=== PATIENT | female | born 1990 | race Caucasian/White ===

== ENCOUNTER 2022-11-24 06:48 | Outpatient (OUT) | payer OTHER, SELFPAY ==
[2022-11-24 07:44] LABS: Basophils Percent Auto 0.4 % (0.2-2.0); Eosinophils Absolute Auto 0.1 10^3/uL (0.0-0.7); Eosinophils Percent Auto 1.9 % (0.9-7.0); Hematocrit 39.2 % (36.0-48.0); Hemoglobin 13.5 g/dL (12.0-16.0); Immature Granulocytes Abs Auto 0.01 10^3/uL (0.00-0.03); Immature Granulocytes Pct Auto 0.2 % (0.0-0.5); Lymphocytes Absolute Auto 1.5 10^3/uL (1.2-3.8); Lymphocytes Percent Auto 32.4 % (20.5-60.0); Mean Corpuscular HGB Conc 34.4 g/dL (29.9-35.2); Mean Corpuscular Hemoglobin 31.2 pg (26.7-34.0); Mean Corpuscular Volume 90.5 fL (81.0-99.0); Mean Platelet Volume 9.5 fL (9.5-13.5); Monocytes Absolute Auto 0.4 10^3/uL (0.3-0.8); Monocytes Percent Auto 7.6 % (1.7-12.0); Neutrophils Absolute Auto 2.7 10^3/uL (1.4-6.5); Neutrophils Percent Auto 57.5 % (43.0-75.0); Platelet Count 219 10^3/uL (150-450); Red Blood Count 4.33 10^6/uL (4.20-5.40); Red Cell Distribution Width 11.9 % (11.0-15.0); White Blood Count 4.8 10^3/uL (4.0-11.0)
[2022-11-24 09:00] LABS: Free T4 0.86 ng/dL (0.76-1.46)
[2022-11-24 09:09] LABS: HCG Quantitative <1 mIU/mL; Thyroid Stimulating Hormone 2.468 uIU/mL (0.358-3.740)
[2022-11-24 09:30] LABS: Estimated Average Glucose 80 mg/dL; Glycohemoglobin A1C 4.4 % (4.5-6.2)
[2022-11-25 08:12] LABS: DHEA-Sulfate 76.5 ug/dL (84.8-378.0); FSH 6.1 mIU/mL (.); Luteinizing Hormone(LH) 15.3 mIU/mL (.)
[2022-11-27 00:07] LABS: DHEA, Serum 318 ng/dL (31-701)
== END 2022-11-24 06:49 | disposition home or self-care (01) ==
LOC: LAB 06:48
PROVIDERS: PCP Family Medicine; Visit Provider Obstetrics & Gynecology
DX: E34.9 Endocrine disorder, unspecified (principal)
CPT/HCPCS: 36415; 82626; 82627; 83001; 83002; 83036; 84439; 84443; 84702; 85025

== ENCOUNTER 2022-12-09 08:00 | Outpatient (OUT) | payer OTHER, SELFPAY ==
--- NOTE | 2022-12-09 | US_ITS ---
The [address] [address] Patient Name: CASE DELACRUZ MRN: [id number] date: 1990 Sex: F Assigned Patient Location: Current Patient Location: US Accession/Order Number: [id number] Exam Date: 12/09/2022 08:04 Report Date: 12/09/2022 09:00 At the request of: SHANI FARR Procedure: US pelvis w/ transvaginal EXAM: Pelvic ultrasound. HISTORY: . PELVIC PAIN. IUD PLACEMENT . COMPARISON: None. TECHNIQUE: Transabdominal and transvaginal scanning was performed FINDINGS: Scanning of the pelvis demonstrates uterus to measure 9.4 x 4.7 x 5.2 cm. Endometrial complex measures 7 mm. Within the endometrial cavity linear hyperechoic structure is noted with shadowing consistent with an IUD which appears in good position. Neither ovary was identified. No fluid was noted within the cul-de-sac. Bowel loops were noted within the pelvis. US/US pelvis w/ transvaginal IMPRESSION: 1. Normal-appearing uterus and endometrial complex. IUD is noted and appears to be in good position. 2. Neither ovary was identified. 3. Incidentally noted were several bowel loops within the pelvis. Electronically authenticated by: HELADIO SEGURA Date: 12/09/2022 09:00
== END 2022-12-09 08:01 | disposition home or self-care (01) ==
LOC: US 08:00
PROVIDERS: PCP Family Medicine; Visit Provider Obstetrics & Gynecology
DX: R10.2 Pelvic and perineal pain (principal); Z97.5 Presence of (intrauterine) contraceptive device
CPT/HCPCS: 76830; 76856

== ENCOUNTER 2022-12-25 12:23 | Outpatient (OUT) | payer OTHER, SELFPAY ==
[2022-12-31 10:11] LABS: Serotonin, Serum 60 ng/mL (31-207)
== END 2022-12-25 12:24 | disposition home or self-care (01) ==
LOC: LAB 12:23
PROVIDERS: PCP Family Medicine; Visit Provider Obstetrics & Gynecology
DX: R10.2 Pelvic and perineal pain (principal)
CPT/HCPCS: 36415; 84260

== ENCOUNTER 2023-01-29 20:44 | Outpatient (REF) | payer OTHER, SELFPAY ==
[2023-02-03 15:08] LABS: Age Gdln ACOG Testing Note (.); HPV Aptima Negative (Negative); IGP, Aptima HPV, rfx 16/18,45 Note (.)
== END 2023-01-29 20:45 | disposition home or self-care (01) ==
LOC: LAB 20:44
PROVIDERS: PCP Family Medicine; Visit Provider Obstetrics & Gynecology
DX: Z12.4 Encounter for screening for malignant neoplasm of cervix (principal)
CPT/HCPCS: 87624; G0145

== ENCOUNTER 2024-01-06 19:04 | Emergency (ER) | payer OTHER, SELFPAY ==
[2024-01-06 19:39] VITALS: BP 147/100; PULSE 69; TEMP 36.9; O2SAT 99; BMI 49.4
[2024-01-06 21:20] VITALS: PULSE 80; O2SAT 99
--- NOTE | 2024-01-07 19:18 | ED_ITS ---
HPI - Animal Bite General Chief Complaint: Animal Bite Stated Complaint: Bite - Possible Bat Bite Time Seen by Provider: 01/06/24 19:48 Source: patient Mode of arrival: walk-in Limitations: no limitations History of Present Illness HPI narrative: patient presents after possible lucinda bite. The bat was flying around in her daughters bedroom. Patient not for sure if she was bitten. she is asymptomatic Related Data Home Medications ?Medication ?Instructions ?Recorded ?Confirmed bupropion HCl 300 mg 24 hr tablet, 300 mg PO DAILY 01/06/24 01/06/24 extended release esomeprazole magnesium 40 mg 40 mg PO DAILY 01/06/24 01/06/24 capsule,delayed release hyoscyamine sulfate 0.375 mg 0.375 mg PO BID 01/06/24 01/06/24 tablet,extended release,12 hr meloxicam 15 mg tablet 15 mg PO DAILY 01/06/24 01/06/24 sertraline 25 mg tablet 25 mg PO DAILY 01/06/24 01/06/24 topiramate 100 mg tablet 50 mg PO DAILY 01/06/24 01/06/24 Review of Systems ROS Status of ROS 10 or more systems reviewed and unremark able except as noted in history and below Exam Constitutional Vital Signs, click to edit/add: Last Vital Signs Temp 98.4 F 01/06/24 19:39 Pulse 80 01/06/24 21:20 Resp 16 01/06/24 21:20 BP 147/100 H 01/06/24 19:39 Pulse Ox 99 01/06/24 21:20 O2 Del Method Room Air 01/06/24 21:20 Common normals: no apparent distress, average body habitus, oriented x3, no limitations, healthy appearing, alert and well nourished [facility] Common normals: normocephalic and head/scalp atraumatic Eye Common normals: PERRL Respiratory Common normals: normal respiratory effort, no retractions and no use of accessory muscles Cardio Common normals: regular rate, regular rhythm, S1 normal heart sound and S2 normal heart sound Extremity Common normals: normal to inspection and full ROM Neuro Common normals: oriented x3, moves all extremities and no focal motor deficits Psych Appearance: grossly normal Course Vital Signs Vital signs: Vital Signs Temperature 98.4 F 01/06/24 19:39 Pulse Rate 69 01/06/24 19:39 Respiratory Rate 18 01/06/24 19:39 Blood Pressure 147/100 H 01/06/24 19:39 Pulse Oximetry 99 01/06/24 19:39 Oxygen Delivery Method Room Air 01/06/24 19:39 Temperature 98.4 F 01/06/24 19:39 Pulse Rate 80 01/06/24 21:20 Respiratory Rate 16 01/06/24 21:20 Blood Pressure 147/100 H 01/06/24 19:39 Pulse Oximetry 99 01/06/24 21:20 Oxygen Delivery Method Room Air 01/06/24 21:20 MDM - Animal Bite MDM Narrative Medical decision making narrative: patient presents after possible exposure to a bat that was found in her home. She is here for rabies vaccination she also brought her children in for vaccination as well we had enough vaccination for her 3 children but not enough for her. She was discharged and will follow up with health department tomorrow Discharge Plan Discharge Stand Alone Forms: Work/School Release, Portal Instructions Chief Complaint: Animal Bite Clinical Impression: Rabies contact Patient Disposition: Home, Self-Care Condition: Good Mode of Transportation: Private Vehicle Prescriptions / Home Meds: No Action bupropion HCl 300 mg tablet extended release 24 hr 300 mg PO DAILY esomeprazole magnesium 40 mg capsule,delayed release(DR/EC) 40 mg PO DAILY hyoscyamine sulfate 0.375 mg tablet extended release 12 hr 0.375 mg PO BID meloxicam 15 mg tablet 15 mg PO DAILY sertraline 25 mg tablet 25 mg PO DAILY topiramate 100 mg tablet 50 mg PO DAILY Print Language: Latvian Instructions: Animal Bite (ED) Additional Instructions: patient advised to follow up with health department Referrals: VARGAS MALHOTRA [Primary Care Provider] - 1 week Discharge Date/Time: 01/06/24 21:20
== END 2024-01-06 21:20 | disposition home or self-care (01) ==
PROVIDERS: Emergency Provider Internal Medicine; PCP Family Medicine
DX: Z20.3 Contact with and (suspected) exposure to rabies (principal)
CPT/HCPCS: 99284

== ENCOUNTER 2024-01-09 13:22 | Outpatient (RCR) | payer OTHER, SELFPAY ==
[2024-01-09] MEDS: RABIES VACCINE/PF 1 ML VIAL IM (13:28)
[2024-01-09] MEDS: RABIES IMMUNE GLOBULIN/PF 300 UNIT/2 ML VIAL 2400 UNIT IM (13:35)
[2024-01-12 17:53] VITALS: BP 132/93; PULSE 80; TEMP 36.4; O2SAT 99
[2024-01-12] MEDS: RABIES VACCINE/PF 1 ML VIAL IM (17:59)
[2024-01-16 09:20] VITALS: BP 136/86; PULSE 70; TEMP 36.5; O2SAT 97
[2024-01-16] MEDS: RABIES VACCINE/PF 1 ML VIAL IM (09:54)
== END 2024-01-16 23:59 | disposition home or self-care (01) ==
LOC: INF 13:22
PROVIDERS: PCP Family Medicine; Visit Provider Physician Assistant
DX: Z20.3 Contact with and (suspected) exposure to rabies (principal); Z23 Encounter for immunization
CPT/HCPCS: 90377; 90471; 90472; 90675

== ENCOUNTER 2024-01-23 09:32 | Outpatient (RCR) | payer OTHER, SELFPAY ==
[2024-01-23] MEDS: RABIES VACCINE/PF 1 ML VIAL IM (09:43)
[2024-01-23 09:54] VITALS: BP 121/84; PULSE 79; TEMP 36.6; O2SAT 97
== END 2024-02-15 23:59 | disposition home or self-care (01) ==
LOC: INF 09:32
PROVIDERS: PCP Family Medicine; Visit Provider Physician Assistant
DX: Z20.3 Contact with and (suspected) exposure to rabies (principal); Z23 Encounter for immunization
CPT/HCPCS: 90471; 90675

== ENCOUNTER 2025-01-14 11:43 | Emergency (ER) | payer OTHER, SELFPAY ==
[2025-01-14 11:47] VITALS: BP 121/81; PULSE 70; TEMP 36.9; O2SAT 99; BMI 52.1
--- NOTE | 2025-01-14 12:18 | XR_ITS ---
[place] [id number] Patient Name: CASE DELACRUZ MRN: [id number] date: 1990 Sex: F Assigned Patient Location: ER Current Patient Location: ED.MAIN Accession/Order Number: [id number] Exam Date: 01/14/2025 12:58 Report Date: 01/14/2025 13:09 At the request of: ANEESH TORRES MD Procedure: XR chest 1V XR chest 1V 01/14/2025 1:07 PM SIGNS AND SYMPTOMS: ^post op pain PROTOCOL: Frontal radiograph of the chest COMPARISON: None FINDINGS: The trachea is midline. The heart and mediastinal structures are within normal limits. The lung parenchyma is clear. The bony thorax is intact. XR/XR chest 1V IMPRESSION: No acute cardiopulmonary pathology. Impression dictated by: Juanjo Castro M.D. 01/14/2025 1:09 PM Dictation Location: [place] [id number] Electronically authenticated by: [id number] Y Date: 01/14/2025 13:09
[2025-01-14] MEDS: ONDANSETRON 4 MG RAPDIS TABLET SL (12:38)
--- NOTE | 2025-01-14 12:41 | ED.GENADUL1 ---
HPI HPI - General Adult General Chief complaint: Allergic Reaction Stated complaint: Allergic Reaction Time Seen by Provider: 01/14/25 12:03 Source: patient Mode of arrival: walk-in Limitations: no limitations History of Present Illness HPI narrative: The patient is 34-year-old female who had a procedure done yesterday in [facility], the patient apparently had the IUD removed under anesthesia The patient did show me the medical records and apparently she was intubated, and today the patient woke up with some neck and back pain in addition to left calf pain and some nausea No abdominal pain no other concerns and the patient have some posterior rib pain as well on the right side Related Data Home Medications ?Medication ?Instructions ?Recorded ?Confirmed bupropion HCl 300 mg 24 hr tablet, 300 mg PO DAILY 01/06/24 01/14/25 extended release esomeprazole magnesium 40 mg 40 mg PO DAILY 01/06/24 01/06/24 capsule,delayed release sertraline 25 mg tablet 25 mg PO DAILY 01/06/24 01/14/25 topiramate 100 mg tablet 50 mg PO DAILY 01/06/24 01/14/25 minoxidil 2.5 mg tablet 2.5 mg PO DAILY 01/14/25 01/14/25 Previous Rx's ?Medication ?Instructions ?Recorded ondansetron 4 mg disintegrating 4 mg PO Q8H PRN nausea and 01/14/25 tablet vomiting 48 hours #6 tabs Allergies Allergy/AdvReac Type Severity Reaction Status Date / Time No Known Drug Allergies Allergy Verified 01/14/25 11:53 Opioid HPI Opioid Management Most Recent Opioid Data: Last Pain Scale 6 Today, 12:53 Last ED Pain Assessment Today, 12:53 Review of Systems ROS Status of ROS 10 or more systems reviewed and unremarkable except as noted in history and below PFSH PFSH Social History Little interest or pleasure in doing things: not at all Feeling down, depressed, or hopeless: not at all Exam Narrative Exam Narrative: Nurses notes and vital signs reviewed and patient is not hypoxic. General: Well-appearing and in no apparent distress. Skin: Warm, dry, no pallor noted. No rash. Head: Normocephalic, atraumatic. Neck: Supple, non-tender. Eye: Pupils are equal, round and EOMI. No scleral icterus. Ears, Nose, Mouth, and Throat: TM are clear, no nasal mucosal hypertrophy. Oral mucosa is moist, no posterior oropharynx erythema, uvula is mid-line Cardiovascular: Regular Rate and Rhythm without murmur, gallop or rub. Respiratory: No accessory muscle use or respiratory distress. Lungs are clear to auscultation, no wheezing, rales or rhonchi Chest Wall: no tenderness Back: No midline thoracic or lumbar vertebral tenderness. No CVA tenderness Musculoskeletal: normal ROM, no calf or popliteal tenderness, no lower extremity edema/swelling GI: Abdomen is soft, non-distended. Normal bowel sounds. No masses appreciated. No tenderness to palpation. No rebound, guarding, or rigidity noted. Neurological: A&O x4. No cranial nerve dysfunction observed. No truncal ataxia. Moves all extremities. Sensation intact. Psychiatric: Cooperative and interactive. Normal mood and affect. Constitutional Vital Signs, click to edit/add: Last Vital Signs Temp 98.4 F 01/14/25 11:47 Pulse 70 01/14/25 11:47 Resp 20 01/14/25 11:47 BP 121/81 01/14/25 11:47 Pulse Ox 99 01/14/25 11:47 Course Vital Signs Vital signs: Vital Signs Temperature 98.4 F 01/14/25 11:47 Pulse Rate 70 01/14/25 11:47 Respiratory Rate 20 01/14/25 11:47 Blood Pressure 121/81 01/14/25 11:47 Pulse Oximetry 99 01/14/25 11:47 Temperature 98.4 F 01/14/25 11:47 Pulse Rate 70 01/14/25 11:47 Respiratory Rate 20 01/14/25 11:47 Blood Pressure 121/81 01/14/25 11:47 Pulse Oximetry 99 01/14/25 11:47 Medical Decision Making [facility] Narrative Medical decision making narrative: The patient procedure done almost 24 hours barely ago In the intubation could be the reason for the patient sore throat and neck pain, muscular pain could be secondary to the procedure to and the fact that the patient was in a lithotomy position to remove the IUD could explain why the calf pain in the left leg But right now the patient other than the muscular pain she does not have anything significant except for the nausea The patient have no abdominal pain no discharge no bleeding Chest x-ray showed no acute pathology and CBC and chemistry within normal with a negative test The patient symptoms could be due to postop pain in addition to anesthesia effect the patient was provided Zofran and discharged home with supportive care for the next 24 to 48 hours The patient is to follow up with primary care physician in next 2-3 days or to return to the emergency department should any of the signs or symptoms worsen or new symptoms develop. The patient agrees with the following Diagnosis and Treatment plan and the patient will be discharged home. Lab Data Labs: Lab Results 01/14/25 Range/Units 12:40 WBC 8.0 (4.0-11.0) 10^3/uL RBC 4.27 (4.20-5.40) 10^6/uL Hgb 12.9 (12.0-16.0) g/dL Hct 37.4 (36.0-48.0) % MCV 87.6 (81.0-99.0) fL MCH 30.2 (26.7-34.0) pg MCHC 34.5 (29.9-35.2) g/dL RDW 11.8 (11.0-15.0) % Plt Count 238 (150-450) 10^3/uL MPV 9.6 (9.5-13.5) fL Neut % (Auto) 54.4 (43.0-75.0) % Lymph % (Auto) 36.8 (20.5-60.0) % Robertson % (Auto) 6.9 (1.7-12.0) % Eos % (Auto) 1.0 (0.9-7.0) % Baso % (Auto) 0.5 (0.2-2.0) % Neut # (Auto) 4.4 (1.4-6.5) 10^3/uL Lymph # (Auto) 2.9 (1.2-3.8) 10^3/uL Robertson # (Auto) 0.6 (0.3-0.8) 10^3/uL Eos # (Auto) 0.1 (0.0-0.7) 10^3/uL Baso # (Auto) 0.0 (0.0-0.1) 10^3/uL Abs Immat Gran (auto) 0.03 (0.00-0.03) 10^3/uL Imm/Tot Granulo (auto) 0.4 (0.0-0.5) % Sodium 139 (136-145) mmol/L Potassium 3.7 (3.5-5.1) mmol/L Chloride 108 H (98-107) mmol/L Carbon Dioxide 21.3 (21.0-32.0) mmol/L Anion Gap 13.4 BUN 14.0 (7.0-18.0) mg/dL Creatinine 0.88 (0.55-1.02) mg/dL Est GFR ( Amer) >60 (>=60 mL/min/1.73m^2) Est GFR (Non-Af Amer) >60 (>=60 mL/min/1.73m^2) BUN/Creatinine Ratio 15.9 Glucose 97 (74-106) mg/dL Calcium 8.8 (8.5-10.1) mg/dL Total Bilirubin 0.3 (0.2-1.0) mg/dL AST 28 (15-37) U/L ALT 26 (14-59) U/L Alkaline Phosphatase 97 (46-116) U/L Total Protein 7.1 (6.4-8.2) g/dL Albumin 3.6 (3.4-5.0) g/dL Globulin 3.5 g/dL Albumin/Globulin Ratio 1.0 Discharge Plan Discharge Chief Complaint: Allergic Reaction Clinical Impression: Post-op pain Patient Disposition: Home, Self-Care Time of Disposition Decision: 13:15 Condition: Good Prescriptions / Home Meds: New ondansetron 4 mg tablet,disintegrating 4 mg PO Q8H PRN (Reason: nausea and vomiting) 2 Days Qty: 6 0RF No Action bupropion HCl 300 mg tablet extended release 24 hr 300 mg PO DAILY esomeprazole magnesium 40 mg capsule,delayed release(DR/EC) 40 mg PO DAILY sertraline 25 mg tablet 25 mg PO DAILY topiramate 100 mg tablet 50 mg PO DAILY minoxidil 2.5 mg tablet 2.5 mg PO DAILY Print Language: Greenlandic Instructions: General Anesthesia (DC) Referrals: VARGAS MALHOTRA DO [Primary Care Provider, [facility]] - 1 week
[2025-01-14 12:51] LABS: Hematocrit 37.4 % (36.0-48.0); Hemoglobin 12.9 g/dL (12.0-16.0); Immature Granulocytes Abs Auto 0.03 10^3/uL (0.00-0.03); Immature Granulocytes Pct Auto 0.4 % (0.0-0.5); Lymphocytes Absolute Auto 2.9 10^3/uL (1.2-3.8); Mean Corpuscular HGB Conc 34.5 g/dL (29.9-35.2); Mean Corpuscular Hemoglobin 30.2 pg (26.7-34.0); Mean Corpuscular Volume 87.6 fL (81.0-99.0); Platelet Count 238 10^3/uL (150-450); Red Blood Count 4.27 10^6/uL (4.20-5.40); White Blood Count 8.0 10^3/uL (4.0-11.0)
--- OUTSIDE RECORDS SUMMARY | 2025-01-14 13:00 | XMS_ITS | CCD ---
Author Organization [facility] Care Team Providers Care Roll Clamp Operator Name Role Phone Vargas MALHOTRA Primary Care Physician YORDAN, DR MCLEOD Attending Unavailable YORDAN, DR MCLEOD Admitting Unavailable GONZALEZ, DR VARGAS Arreola Primary Care Unavailable YORDAN, DR MCLEOD Attending Unavailable YORDAN, DR MCLEOD Consulting Unavailable YORDAN, DR MCLEOD Admitting Unavailable GONZALEZ, DR VARGAS Arreola Primary Care Unavailable GONZALEZ, DR VARGAS Arreola Primary Care Unavailable GONZALEZ, DR VARGAS Arreola Admitting Unavailable GONZALEZ, DR VARGAS Arreola Attending Unavailable GONZALEZ, DR VARGAS Arreola Consulting Unavailable GONZALEZ, DR VARGAS Arreola Primary Care Unavailable KATTHIRA Admitting Unavailable KATTRYANOE Attending Unavailable Unavailable Primary Care Provider UnavailMAGED Bhandari Attending Unavailable Vargas Malhotra DO Primary Care Provider Vargas Malhotra DO Primary Care Provider DO Vargas Malhotra Primary Care Provider DO Elie Lerner Attending Provider [phone] NONE, XXXX Primary Care Physician Unavailab Vargas Baxter DO Primary Care Provider VARGAS MALHOTRA Primary Care Unavailable JOSE BERNARD Attending Unavailable VARGAS MALHOTRA Primary Care Unavailable HELADIO CRAIN JR Referring Unavailable DO Vargas Malhotra Primary Care Provider CHARLEEN Lee-JORY-Merry Casey Attending Provider Neyda Lee Admitting Unavailable Neyda Lee Attending Unavailable Vargas Malhotra Primary Care Unavailable Elie Lerner Admitting Unavailab Elie Tavera Attending Unavailab arely Malhotra, Vargas S Primary Care Unavailable Neyda Lee Attending Unavailable Gonzalez, Vargas S Primary Care Unavailable Neyda Lee Admitting Unavailable Elie Lerner DO Unavailable Gonzalez DO, Vargas S Primary Care Provider Gonzalez DO, Vargas S Primary Care Provider MillsOren hernandez DO P Unavailable Gonzalez DO, Vargas S Primary Care Provider GONZALEZ, Vargas S Primary Care Physician Marya Wright Attending Unavailable GONZALEZ, VARGAS S Referring Unavailable GONZALEZ, VARGAS S Primary Care Unavailable WOODY GARCIA Referring Unavailable GONZALEZ, VARGAS S Primary Care Unavailable GONZALEZ, VARGAS S Referring Unavailable GONZALEZ, VARGAS S Primary Care Unavailable RYAN, CHEIKH Referring Unavailable GONZALEZ, VARGAS S Primary Care Unavailable GONZALEZ, VARGAS S Referring Unavailable GONZALEZ, VARGAS S Primary Care Unavailable GONZALEZ, VARGAS S Primary Care Unavailable GONZALEZ, VARGAS S Referring Unavailable GONZALEZ, VARGAS S Primary Care Unavailable RYAN, CHEIKH Referring Unavailable GONZALEZ, VARGAS S Primary Care Unavailable GONZALEZ, VARGAS S Referring Unavailable GONZALEZ, VARGAS S Primary Care Unavailable GONZALEZ, VARGAS S Referring Unavailable GONZALEZ, VARGAS S Primary Care Unavailable GONZALEZ, VARGAS S Referring Unavailable GONZALEZ, VARGAS S Referring Unavailable GONZALEZ, VARGAS S Primary Care Unavailable GONZALEZ, VARGAS S Primary Care Unavailable GONZALEZ, VARGAS S Referring Unavailable GONZALEZ, VARGAS S Primary Care Unavailable SCHMANUEL, CHEIKH Referring Unavailable GONZALEZ, VARGAS S Primary Care Unavailable SCHUERGER, CHEIKH Referring Unavailable GONZALEZ, VARGAS S Primary Care Unavailable SCHUERGER, CHEIKH Referring Unavailable GONZALEZ, VARGAS S Primary Care Unavailable SCHSYDNEYGER, CHEIKH Referring Unavailable GONZALEZ, VARGAS S Primary Care Unavailable SCHSYDNEYGER, CHEIKH Referring Unavailable GONZALEZ, VARGAS S Primary Care Unavailable SCHUERGER, CHEIKH Referring Unavailable GONZALEZ, VARGAS S Primary Care Unavailable SCHUERGER, CHEIKH Referring Unavailable GONZALEZ, VARGAS S Primary Care Unavailable SCHUERGER, CHEIKH Referring Unavailable GONZALEZ, VARGAS S Primary Care Unavailable GONZALEZ, VARGAS S Referring Unavailable GONZALEZ, VARGAS S Primary Care Unavailable GONZALEZ, VARGAS S Referring Unavailable GONZALEZ, VARGAS S Primary Care Unavailable GONZALEZ, VARGAS S Referring Unavailable GONZALEZ, VARGAS S Primary Care Unavailable CHEIKH HADDAD Referring Unavailable GONZALEZ, VARGAS S Primary Care Unavailable CHEIKH HADDAD Referring Unavailable GONZALEZ, VARGAS S Primary Care Unavailable SCHSYDNEYGER, CHEIKH Referring Unavailable GONZALEZ, VARGAS S Primary Care Unavailable GONZALEZ, VARGAS S Referring Unavailable GONZALEZ, VARGAS S Primary Care Unavailable GONZALEZ, VARGAS S Referring Unavailable GONZALEZ, VARGAS S Primary Care Unavailable GONZALEZ, VARGAS S Referring Unavailable GONZALEZ, VARGAS S Primary Care Unavailable SCHMANUEL, CHEIKH Referring Unavailable GONZALEZ, VARGAS S Primary Care Unavailable WOODY GARCIA Attending Unavailable WOODY GARCIA Admitting Unavailable GONZALEZ, VARGSA S Primary Care Unavailable GONZALEZ, VARGAS S Referring Unavailable GONZALEZ, VARGAS S Primary Care Unavailable GONZALEZ, VARGAS S Primary Care Unavailable RYAN, CHEIKH Referring Unavailable LLUVIA GRAY Attending Unavailable GONZALEZ, VARGAS S Primary Care Unavailable VALDEZ REYES Attending Unavailable GONZALEZ, VARGAS S Primary Care Unavailable SELF Referring Unavailable MARCIAL QUEEN Referring Unavailable GONZALEZ, VARGAS S Primary Care Unavailable OREN MILLS Referring Unavailable GONZALEZ, VARGAS S Primary Care Unavailable CYNDI FREEDMAN Referring Unavailable GONZALEZ, VARGAS S Primary Care Unavailable CYNDI FREEDMAN Referring Unavailable PATTI RUTHERFORD Attending Unavailable GONZALEZ, VARGAS S Primary Care Unavailable GAIL ENGEL Attending Unavailable PATTI RUTHERFORD Referring Unavailable GONZALEZ, VARGAS S Primary Care Unavailable MICHAEL HITCHCOCK Attending Unavailable GONZALEZ, VARGAS S Primary Care Unavailable SHELL RO Referring Unavailable GONZALEZ, VARGAS S Primary Care Unavailable TIERRA ROJAS Attending Unavailable GONZALEZ, VARGAS S Primary Care Unavailable OREN MILLS Referring Unavailable MICHAEL HITCHCOCK Attending Unavailable GONZALEZ, VARGAS S Primary Care Unavailable SHELL RO Referring Unavailable GONZALEZ, VARGAS S Primary Care Unavailable CYNDI FREEDMAN Attending Unavailable GONZALEZ, VARGAS S Primary Care Unavailable SELF Referring Unavailable MARCIAL QUEEN Attending Unavailable GONZALEZ, VARGAS S Primary Care Unavailable OREN MILLS Attending Unavailable GONZALEZ, VARGAS S Primary Care Unavailable SHELL RO Attending Unavailable GONZALEZ, VARGAS S Primary Care Unavailable Allergies Allergy Classification Reported Allergen(s) Allergy Type Date of Onset Reaction(s) Facility (1 source) Unable to Assess Drug allergy (disorder) 3 [facility] Repository (1 source) No Known Medication Allergies; Translations: [No Known Medication Allergies] Propensity to adverse reactions (disorder) [facility] Repository Medications Current Medications Medication Drug Class(es) Dates Sig (Normalized) Sig (Original) 0.5 ML semaglutide 0.5 MG/ML Auto-Injector (2 sources) Start: 03-24-2022 inject 0.5 mg by subcutaneous injection every week semaglutide 0.25 mg/0.5 mL (0.25 mg dose) subcutaneous solution See Instructions, 0.5mg q weekly, # 3 EA, Refills(s) 3, Pharmacy: [facility] #[id number], 157, cm, 01/13/22 14:52:00 EDT, Height/Length Dosing, 110.7, kg, 01/13/22 14:52:00 EDT, Weight Dosing Start Date: 03/24/22 Status: Ordered Start: 02-14-2021 inject 0.5 mg by sub cutaneous injection every week semaglutide 0.25 mg/0.5 mL (0.25 mg dose) subcutaneous solution See Instructions, 0.5mg q weekly, # 3 EA, Refills(s) 3, Pharmacy: [facility]/pharmacy #[id number], 157, cm, 01/16/21 15:16:00 EDT, Height/Length Dosing, 106.6, kg, 01/16/21 15:16:00 EDT, Weight Dosing Start Date: 02/14/21 Status: Ordered acetylcholine 10% solution - [facility] (20 sources) Start: 07-06-2023 acetylcholine 10% solution - [facility] albuterol 0.833 mg/ml / ipratropium bromide 0.167 mg/ml inhalation solution (1 source) Anticholinerg ic, beta2-Adrener gic Agonist Start: 03-08-2024 End: 03-09-2024 take 1 dose by inhalation once as needed 1 Dose, Inhalation, ONCE PRN, 1 dose, Starting on Thu03/08/24 at 0844, Until Thu03/09/24 at 0844, Shortness of Breath, Initiate RT Bronchodilator Protocol: No, PACU only ascorbic acid/vitamin E/biotin (HAIR, SKIN, NAILS WITH BIOTIN ORAL) (20 sources) ascorbic acid/vitamin E/biotin (HAIR, SKIN, NAILS WITH BIOTIN ORAL) Take by mouth. Suspended ascorbic acid/vi tamin E/biotin (HAIR, SKIN, NAILS WITH BIOTIN ORAL) Take by mouth. Active ascorbic acid/vi tamin E/biotin (HAIR, SKIN, NAILS WITH BIOTIN ORAL) Take by mouth. 0 Active Comment on above: Take by mouth. benoxinate hydrochloride 4 mg/ml / fluorescein sodium 3 mg/ml ophthalmic solution (1 source) Diagnostic Dye Start: 2023 End: 2023 fluorescein-benoxinat e 0.3-0.4 % 1 Drop (FLURESS) benzalkonium chloride 1.3 mg/ml medicated pad (12 sources) Start: 2024 Misc. Devices KIT Indications: Hemochromatosis, unspecified hemochromatosis type Therapeutic Phlebotomy. Remove 500mL weekly. Do not draw if hemoglobin is lower than 13.0. g/dL. Patient has standing orders for weekly H&H, Iron and TIBC. No hydration required following the draw. 1 kit 10/07/2024 Active brompheniramine maleate 0.4 mg/ml / dextromethorphan hydrobromide 2 mg/ml / pseudoephedrine hydrochloride 6 mg/ml oral solution (1 source) alpha-Adrenergic Agonist, Uncompetitive O-watjab-L-aspartat e Receptor Antagonist, Sigma-1 Agonist Start: 2024 take 5 mL by mouth four times daily for cough and congestion Bromfed DM oral syrup 5 mL, Oral, QID for cough and congestion, 200 mL, Refill(s) 0, [facility]/pharmacy #[id number], 157, cm, 09/30/24 15:05:00 EDT, Height/Length Dosing, 126, kg, 09/30/24 15:05:00 EDT, Weight Dosing Start Date: 09/30/24 Status: Ordered Quantity: 200.0 Unit: mL Repeat number: 1 24 hr buPROPion hydrochloride 300 mg extended release oral tablet (20 sources) Aminoketone Start: 2021 take 1 tablet by mouth once daily buPROPion 300 mg XL /24 hrs TAKE 1 TABLET BY MOUTH EVERY DAY Start Date: 01/13/22 Status: Ordered Start: 01-13-2022 End: 2022 take 1 tablet by mouth once daily buPROPion XL (WELLBUTRIN XL) 300 mg 24 hr tablet Take 300 mg by mouth once daily. 06/03/2022 Active Comment on above: Take 300 mg by mouth once daily. chlorzoxazone 500 mg oral tablet (3 sources) Muscle Relaxant Start: 01-12-20 chlorzoxazone (PARAFON FORTE DSC) 500 mg tablet Indications: Intractable chronic migraine without aura and without status migrainosus Take 1 tablet by mouth four times daily. Take 1 tablet (500 mg) four times a day until headache free for 24 hours or take for 5 days. May cause drowsiness. Please do not drive or operate machinery while taking this medication 20 tablet 01/11/2025 Active cholecalciferol 0.05 mg oral capsule (20 sources) Vitamin D Start: 02-05-20 take 1 capsule by mouth once daily Cholecalciferol (Vitamin D3) (Vitamin D3) 50 mcg (2,000 unit) Capsule Active 50 MCG PO Daily February 04, 2023 12:00am Cholecalciferol (VITAMIN D3 PO) Take by mouth Active Cholecalciferol (VITAMIN D3 PO) Take by mouth 0 Active cholecalciferol, vitamin D3, (VITAMIN D3 ORAL) (20 sources) cholecalciferol, vitamin D3, (VITAMIN D3 ORAL) Take by mouth. Suspended cholecalciferol, vitamin D3, (VITAMIN D3 ORAL) Take by mouth. Active cholecalciferol, vitamin D3, (VITAMIN D3 ORAL) Take by mouth. 0 Active Comment on above: Take by mouth. cyclobenzaprine hydrochloride 10 mg oral tablet (2 sources) Muscle Relaxant Start: 022 take 1 tablet by mouth once daily at bedtime cyclobenzaprine 10 mg Tab TAKE 1 TABLET BY MOUTH EVERYDAY AT BEDTIME Start Date: 01/13/22 Status: Ordered esomeprazole 40 mg delayed release oral capsule (20 sources) Proton Pump Inhibitor Start: 023 End: 025 take 1 capsule by mouth twice daily before mealtime esomeprazole (NEXIUM) 40 mg capsule Indications: Gastroesophageal reflux disease without esophagitis TAKE 1 CAPSULE BY MOUTH TWO TIMES A DAY BEFORE MEALS 180 capsule 1 06/15/2024 Active Start: 01-09-2023 End: 11-13-2023 esomeprazole (NEXIUM) 40 MG delayed release capsule 01/09/2023 Active Start: 12-23-2022 Nexium Refills (s) 0 Start Date: 12/23/22 Status: Ordered Repeat number: 1 Start: 12-23-2022 Nexium Refills (s) 0 Start Date: 12/23/22 Status: Ordered End: 12-30-2022 take 20 mg by mouth once daily esomeprazole magnesium (NEXIUM ORAL) Take 20 mg by mouth once daily. 0 12/30/2022 Discontinued (Course of therapy completed) esomeprazole mag nesium (NEXIUM ORAL) Take by mouth. 0 Active Comment on above: Take by mouth. Take 20 mg by mouth once daily. Take 1 capsule by [facility] once daily. take 1 capsule by [facility] every day fluticasone propionate 0.05 mg/actuat metered dose nasal spray (1 source) Corticosteroid Start: 09-30-2024 Flonase 0.05 mg/inh [place] 1 spray(s), Nasal, BID, 16 gram, Refill(s) 0, each nostril, [facility]/pharmacy #[id number], 157, cm, 09/30/24 15:05:00 EDT, Height/Length Dosing, 126, kg, 09/30/24 15:05:00 EDT, Weight Dosing Start Date: 09/30/24 Status: Ordered Quantity: 16.0 Unit: g Repeat number: 1 Glucose (3 sources) Start: 03-08-2024 IntraVENous, at 100 mL/hr, CONTINUOUS PRN, if blood glucose remains LESS THAN 70 mg/dL after 2 dextrose 10% intravenous boluses or administration of glucagon, Starting on Thu03/08/24 at 0844, If blood glucose fails to stabilize after 2 dextrose 10% intravenous boluses or glucagon administration, start dextrose 10% infusion at 100 mL/hour and repeat blood glucose at 30 and 60 minutes. If blood glucose is GREATER THAN 70 mg/dL after 60 minutes, discontinue dextrose 10% infusion., PACU only Start: 03-08-2024 dextrose bolus 10% 125 mL Start: 03-08-2024 16 g (4 tablet ), Oral, PRN, Starting on Thu03/08/24 at 0844, Until Discontinued, Low blood sugar, If blood glucose is LESS THAN 70 mg/dL and patient is alert and tolerating oral. Give 4 tablets (16g) Repeat blood glucose in 15 minutes. If blood glucose is LESS THAN 70 mg/dL, repeat treatment and recheck blood glucose in 15 minutes x 2. If blood glucose remains LESS THAN 70 mg/dL, notify provider., PACU only hydrOXYzine hydrochloride 25 mg oral tablet (5 sources) Antihistamine Start: 08-06-2021 take 1-2 tablets by mouth four times daily as needed for anxiety hydrOXYzine hydrochloride 25 mg Tab 1-2 tab(s), Oral, QID, PRN for anxiety, # 40 tab(s), Refills(s) 0, Pharmacy: [facility]/pharmacy #[id number], 157, cm, 04/25/21 14:43:00 EST, Height/Length Dosing, 110.9, kg, 04/25/21 14:43:00 EST, Weight Dosing Start Date: 08/06/21 Status: Ordered 12 hr hyoscyamine sulfate 0.375 mg extended release oral tablet (20 sources) Start: 10-20-2023 End: 12-19-2023 take 1 tablet by mouth twice daily hyoscyamine SR (LEVBID) 0.375 mg 12 hr tablet TAKE 1 TABLET BY MOUTH TWICE A DAY 180 tablet 1 11/12/2023 Active Start: 06-18-2023 End: 10-20-2023 take 1 tablet by mouth twice daily hyoscyamine (LEVSIN) 0.125 mg tablet TAKE 1 TABLET BY MOUTH TWICE A DAY 180 tablet 1 06/18/2023 10/20/2023 Discontinued Start: 05-22-2023 take 1 tablet by vanesa th twice daily hyoscyamine (ANASPAZ;LEVSIN) 125 MCG tablet Take 1 tablet by mouth 2 times daily 05/22/2023 Active Start: 05-05-2023 End: 07-04-2023 take 1 tablet by mouth twice daily hyoscyamine SR (LEVBID) 0.375 mg 12 hr tablet Take 1 tablet by mouth two times a day. 60 tablet 1 05/05/2023 07/04/2023 Active Comment on above: Take 1 tablet by vanesa th two times a day. TAKE 1 TABLET BY VANESA TH TWICE A DAY 24 hr isosorbide mononitrate 30 mg extended release oral tablet (10 sources) Nitrate Vasodilator Start: 12-23-2022 isosorbide mononitrate 30 mg ER Tab Refills(s) 0 Start Date: 12/23/22 Status: Ordered Start: 11-25-2022 End: 01-26-2023 take 1 tablet by mouth once daily isosorbide mononitrate ER (IMDUR) 30 mg 24 hr tablet Indications: SOB (shortness of breath) , Abnormal stress test TAKE 1 TABLET BY MOUTH EVERY DAY 90 tablet 3 12/17/2022 01/26/2023 Discontinued (Course of therapy completed) Comment on above: Take 1 tablet by vanesa th once daily. TAKE 1 TABLET BY VANESA TH EVERY DAY labetalol (NORMODYNE;TRANDATE) injection 10 mg (1 source) Start: 03-08-2024 labetalol (NORMODYNE;TRANDATE) injection 10 mg loratadine 10 mg oral capsule (17 sources) Start: 12-23-2022 take 1 capsule by mouth once daily loratadine 10 mg oral capsule 10 mg = 1 cap(s), Oral, Daily, # 10 cap(s), Refills(s) 0 Start Date: 12/23/22 Status: Ordered Quantity: 10.0 Unit: cap(s) Repeat number: 1 End: 07-10-2023 loratadine (CLARITIN) 10 mg tablet Take 10 mg by mouth. 0 07/10/2023 Discontinued (Course of therapy completed) Comment on above: Take 10 mg by mouth. Magnesium (20 sources) MAGNESIUM ORAL T margaret by mouth. Suspended End: 11-23-2024 Magnesium 400 MG TABS Take 2 00 mg by mouth daily 11/23/2024 Discontinued (LIST CLEANUP) MAGNESIUM ORAL T margaret by mouth. Active Magnesium 400 MG TABS Take 200 mg by mouth daily Active Magnesium 400 MG TABS Take 200 mg by mouth daily 0 Active MAGNESIUM ORAL T margaret by mouth. 0 Active Comment on above: Take by mouth. meloxicam 15 mg oral tablet (16 sources) Nonsteroidal Anti-inflammatory Drug Start: 01-25-2024 take 1 tablet by mouth once daily meloxicam (MOBIC) 15 MG tablet TAKE 1 TABLET BY MOUTH EVERY DAY 30 tablet 1 01/25/2024 Active Start: 11-12-2023 End: 12-27-2023 take 1 tablet by mouth once daily meloxicam (MOBIC) 15 MG tablet TAKE 1 TABLET BY MOUTH EVERY DAY 30 tablet 1 12/01/2023 Active 2 ml metoclopramide 5 mg/ml prefilled syringe (1 source) Dopamine-2 Receptor Antagonist Start: 03-08-2024 End: 03-09-2024 10 mg, IntraVENous, ONCE PRN, 1 dose, Starting on Thu03/08/24 at 0844, Until Thu03/09/24 at 0844, Nausea, Secondary antiemetic therapy., PACU only minoxidil 2.5 mg oral tablet (16 sources) Arteriolar Vasodilator Start: 11-09-2024 End: 11-09-2025 take 1 tablet by mouth once daily minoxidil (LONITEN) 2.5 MG tablet Indications: Hair loss Take 1 tablet by mouth daily 30 tablet 3 11/09/2024 11/09/2025 Active Misc. Devices MISC (12 sources) Start: 10-06-2024 Misc. Devices MISC Indications: Hemochromatosis, unspecified hemochromatosis type Therapeutic phlebotomy. Remove 500 mL once weekly. Do not draw if hemoglobin is lower than 13.0 g/dL. Patient has been provided with standing orders for weekly hemoglobin, hematocrit, iron and TIBC levels. No hydration required after draw. 1 each 10/06/2024 Active multivit with calcium,iron,min (WOMEN'S MULTIPLE VITAMINS ORAL) (20 sources) multivit with calcium,iron,min (WOMEN'S MULTIPLE VITAMINS ORAL) Take by mouth once daily. Suspended multivit with ca lcium,iron,min (WOMEN'S MULTIPLE VITAMINS ORAL) Take by mouth once daily. Active multivit with ca lcium,iron,min (WOMEN'S MULTIPLE VITAMINS ORAL) Take by mouth once daily. 0 Active Comment on above: Take by mouth once d aily. naloxone 0.4 mg in 10 mL sodium chloride syringe (1 source) Start: 03-08-20 IntraVENous, PRN, Opioid Reversal, Starting on Thu03/08/24 at 0844, PRN if respiratory rate is less than 6/min and patient is difficult to arouse then notify physician STAT. Mix 9 mL of sodium chloride 0.9% with 0.4 mg (1 mL) of naloxone (NARCAN) in 10 mL syringe. (Note: dilution is 0.04 mg/mL) Give 0.08 mg (2 mL of special dilution), slow IV push, repeat up to 0.4 mg (10 mL) or until patient is responsive to physical stimulation and respiratory rate is equal to or greater than 6 breaths/min. Continue to observe, if no response within 3 minutes of administration of 0.4 mg (10 mL) total, repeat dose (0.4 mg as administered previously). Concentration 0.04 mg/mL, PACU only naproxen 500 mg oral tablet (1 source) Nonsteroidal Anti-inflammatory Drug Start: 11-11-19 take 1 tablet by mouth twice daily Naprosyn 500 mg Tab 500 mg = 1 tab(s), Oral, BID, # 20 tab(s), Refills(s) 0, Pharmacy: [facility]/pharmacy #[id number], 157, cm, 11/10/22 17:08:00 EDT, Height/Length Dosing, 112, kg, 11/10/22 17:08:00 EDT, Weight Dosing Start Date: 11/10/22 Status: Ordered nitrofurantoin, macrocrystals 25 mg / nitrofurantoin, monohydrate 75 mg oral capsule (2 sources) Nitrofuran Antibacterial Start: 04-27-20 End: 05-04-20 take 1 capsule by mouth twice daily nitrofurantoin, macrocrystal-monohydr ate, (MACROBID) 100 MG capsule Take 1 capsule by mouth 2 times daily for 7 days 14 capsule 04/27/2024 05/04/2024 Active Start: 04-27-2024 End: 04-27-2024 take 1 dose by mouth once 100 mg, Oral, ONCE, 1 dose, On Thu04/27/24 at 1121, Antimicrobial Indications: Urinary Tract Infection ondansetron 4 mg oral tablet (18 sources) Serotonin-3 Receptor Antagonist Start: 04-22-2024 take 1 tablet by mouth three times daily as needed for nausea ondansetron (ZOFRAN) 4 MG tablet Take 1 tablet by mouth 3 times daily as needed for Nausea or Vomiting 30 tablet 2 04/22/2024 Active Start: 03-08-2024 End: 03-09-2024 4 mg, IntraVENous, ONCE PRN, 1 dose, Starting on Thu03/08/24 at 0844, Until Thu03/09/24 at 0844, Nausea, Initial antiemetic therapy., PACU only oxyCODONE hydrochloride 5 mg oral tablet (1 source) Opioid Agonist Start: 03-08-2024 End: 03-13-2024 take 1 tablet by mouth every six hours as needed for pain oxyCODONE (ROXICODONE) 5 MG immediate release tablet Indications: Acute medial meniscus tear of right knee, subsequent encounter Take 1 tablet by mouth every 6 hours as needed for Pain for up to 5 days. Intended supply: 5 days. Take lowest dose possible to manage pain Max Daily Amount: 20 mg 20 tablet 03/08/2024 03/13/2024 Active pantoprazole 40 mg extended release oral tablet (3 sources) Proton Pump Inhibitor Start: 12-23-2021 take 1 tablet by mouth once daily pantoprazole 40 mg Oral EC Tab 40 mg = 1 tab(s), Oral, Daily, # 90 tab(s), Refills(s) 1, Pharmacy: [facility]/pharmacy #[id number], 157, cm, 04/25/21 14:43:00 EST, Height/Length Dosing, 110.9, kg, 04/25/21 14:43:00 EST, Weight Dosing Start Date: 12/23/21 Status: Ordered Start: 12-23-2021 take 1 tablet by vanesa th once daily pantoprazole 40 mg Oral EC Tab 40 mg = 1 tab(s), Oral, Daily, # 90 tab(s), Refills(s) 1, Pharmacy: [facility]/pharmacy #[id number], 157, cm, 04/25/21 14:43:00 EST, Height/Length Dosing, 110.9, kg, 04/25/21 14:43:00 EST, Weight Dosing Start Date: 12/23/21 Status: Ordered 0.25 mg, 0.5 mg dose 1.5 ml semaglutide 1.34 mg/ml pen injector (1 source) Start: 03-25-2022 inject 0.5 mg by subcutaneous injection every week Ozempic 2 mg/1.5 mL (0.25 mg or 0.5 mg dose) subcutaneous solution 0.5 mg, SubCutaneous, qWeek, 4.5 mL, Refill(s) 3, [facility]/pharmacy #[id number], 157, cm, 01/13/22 14:52:00 EDT, Height/Length Dosing, 110.7, kg, 01/13/22 14:52:00 EDT, Weight Dosing Start Date: 03/25/22 Status: Ordered Semaglutide-Weight Management (WEGOVY) 0.5 MG/0.5ML SOAJ SC injection (17 sources) Start: 12-17-2023 Semaglutide-We ight Management (WEGOVY) 0.5 MG/0.5ML SOAJ SC injection Indications: BMI 50.0-59.9, adult , Metabolic syndrome , ANTHONY (obstructive sleep apnea) Inject 0.5 mg into the skin every 7 days 3 mL 12/17/2023 Active Start: 12-17-2023 Semaglutide-We ight Management (WEGOVY) 0.5 MG/0.5ML SOAJ SC injection Indications: BMI 50.0-59.9, adult (HCC) , Metabolic syndrome , ANTHONY (obstructive sleep apnea) Inject 0.5 mg into the skin every 7 days 3 mL 12/17/2023 Active Start: 12-17-2023 Semaglutide-We ight Management (WEGOVY) 0.5 MG/0.5ML SOAJ SC injection Indications: BMI 50.0-59.9, adult (HCC) , Metabolic syndrome , ANTHONY (obstructive sleep apnea) Inject 0.5 mg into the skin every 7 days 3 mL 0 12/17/2023 Active sertraline 25 mg oral tablet (20 sources) Serotonin Reuptake Inhibitor Start: 08-28-2022 sertraline (ZOLOFT) 25 mg tablet Take 25 mg by mouth. 08/28/2022 Active End: 07-29-2023 sertraline 150 mg capsule sertraline 150 m g capsule Comment on above: Take 25 mg by mouth. 1000 ml sodium chloride 9 mg/ml injection (3 sources) Start: take 1 mL intravenously every hour as needed IntraVENous, at 100 mL/hr, PRN, If patient receiving piggyback infusions without ordered maintenance IV fluids or with frequent/long duration piggyback infusions, Starting on Thu03/08/24 at 0844, Administer at the same rate as the piggyback being infused., PACU only Start: 03-08-2024 5-40 mL, Intra VENous, EVERY 12 HOURS SCHEDULED (2 times per day), First dose on Thu03/08/24 at 0900, Until Discontinued, For Line Patency: Peripheral IV = 5 mL; Midline or Central Line = 10 mL/lumen. If following IV push medication, administer flush at same rate as the IV push. Flush volume is determined by type of infusion therapy being given. For non-viscous solutions use: Peripheral IV = 5 mL Midline or Central Line = 10 mL/lumen For viscous solutions (i.e. blood components, parenteral nutrition, contrast media, or after obtaining blood sample) use: Peripheral IV = 10 mL Midline or Central Line = 20 mL/lumen, PACU only Start: 03-08-2024 5-40 mL, Intra VENous, PRN, Starting on Thu03/08/24 at 0844, Until Discontinued, Line Care, After every IV line use, For Line Patency: Peripheral IV = 5 mL; Midline or Central Line = 10 mL/lumen. If following IV push medication, administer flush at same rate as the IV push. Flush volume is determined by type of infusion therapy being given. For non-viscous solutions use: Peripheral IV = 5 mL Midline or Central Line = 10 mL/lumen For viscous solutions (i.e. blood components, parenteral nutrition, contrast media, or after obtaining blood sample) use: Peripheral IV = 10 mL Midline or Central Line = 20 mL/lumen, PACU only Tirzepatide (MOUNJARO) 2.5 MG/0.5ML SOAJ pen (1 source) Start: 12-21-2024 Tirzepatide (MOUNJARO) 2.5 MG/0.5ML SOAJ pen Indications: Metabolic syndrome , Impaired fasting glucose Inject 2.5 mg into the skin every 7 days 2 mL 12/21/2024 Active tirzepatide, weight loss (ZEPBOUND) 5 mg/0.5 mL pen injector (2 sources) Start: 08-31-2023 tirzepatide, weight loss (ZEPBOUND) 5 mg/0.5 mL pen injector Indications: Class 3 severe obesity due to excess calories with serious comorbidity and body mass index (BMI) of 50.0 to 59.9 in adult (HCC) , ANTHONY (obstructive sleep apnea) Inject 5 mg subcutaneously one time a week. Patient should start on August 31, 2023. 2 mL 2 08/31/2023 Active Comment on above: Inject 5 mg subcutan eously one time a week. Patient should start on August 31, 2023. topiramate 100 mg oral tablet (20 sources) Start: 03-31-2024 End: 03-31-2025 take 1.5 tablets by mouth once daily at bedtime topiramate (TOPAMAX) 50 mg tablet Take 1.5 tablets by mouth daily at bedtime. 45 tablet 11 03/31/2024 06/02/2024 Discontinued Start: 08-13-2023 End: 08-18-2025 take 1 tablet by mouth once daily at bedtime topiramate (TOPAMAX) 100 mg tablet Take 1 tablet by mouth daily at bedtime. 30 tablet 11 08/18/2024 08/18/2025 Active Start: 07-29-2023 End: 08-07-2023 take 50-59.9 tablets by mouth twice daily topiramate (TOPAMAX) 25 mg tablet Indications: Class 3 severe obesity due to excess calories with serious comorbidity and body mass index (BMI) of 50.0 to 59.9 in adult (HCC) , ANTHONY (obstructive sleep apnea) TAKE 1 TABLET BY MOUTH TWICE A DAY 180 tablet 1 08/07/2023 Active Start: 06-19-2023 End: 07-29-2023 take 1 tablet by mouth once daily topiramate (TOPAMAX) 25 mg tablet take 1 tablet by mouth every day at night 0 06/19/2023 07/29/2023 Discontinued Start: 04-04-2022 End: 12-30-2022 topiramate 50 mg Tab Refills (s) 0 Start Date: 12/23/22 Status: Ordered Repeat number: 1 Start: 05-08-2020 take 2 capsules by m outh once daily at bedtime, then take 3 capsules by mouth at bedtime, then take 4 capsules by mouth at bedtime topiramate 25 mg oral capsule 25 mg = 1 cap(s), Oral, Daily, 1 cap at bedtime x 1 week, the 2 caps at bedtime x 1 week, then 3 caps at bedtime x 1 week, then 4 caps at bedtime, # 120 cap(s), Refills(s) 2, Pharmacy: [facility]/pharmacy #[id number], 157, cm, 05/07/20 15:53:00 EST, Height/Length... Start Date: 05/08/20 Status: Ordered Comment on above: Take 50 mg by mouth twice daily. take 1 tablet by vanesa th every day at night take 1 tablet by vanesa th twice daily TAKE 1 TABLET BY VANESA TH TWICE A DAY Take 1 tablet by vanesa th daily at bedtime. tropicamide 10 mg/ml ophthalmic solution (1 source) Anticholinergic Start: 07-17-2023 End: 07-18-2023 tropicamide 1 % 1 Drop (MYDRIACYL) Ubrelvy (2 sources) Start: 01-13-2022 Ubrelvy Oral, Once, Refills(s) 0 Start Date: 01/13/22 Status: Ordered Vitamin D3 (2 sources) Start: 12-23-2022 Vitamin D3 Refills(s) 0 Start Date: 12/23/22 Status: Ordered Repeat number: 1 Start: 12-23-2022 Vitamin D3 Ref ills(s) 0 Start Date: 12/23/22 Status: Ordered Completed/Discontinued Medications Medication Drug Class(es) Dates Sig (Normalized) Sig (Original) amoxicillin 875 mg / clavulanate 125 mg oral tablet (5 sources) Penicillin-class Antibacterial Start: 12-23-2022 End: 01-26-2023 take 1 tablet by mouth every twelve hours amoxicillin-clavul anic acid (AUGMENTIN) 875-125 mg per tablet Take 1 tablet by mouth every 12 hours. 0 12/23/2022 01/26/2023 Discontinued (Course of therapy completed) Comment on above: Take 1 tablet by vanesa th every 12 hours. amylase 323073 unt / lipase 30975 unt / protease 72163 unt delayed release oral capsule (20 sources) Start: 11-13-2023 End: 12-30-2024 take 1 capsule by mouth three times daily at mealtime voqplg-bqfrgtkw-zk ylase (ZENPEP) 25,000-79,000- 105,000 unit delayed release capsule Take 1 capsule by mouth three times a day with meals. 90 capsule 11/13/2023 12/30/2024 Discontinued (Not on Formulary) Start: 11-13-2023 ZENPEP [id number] 9000 units CPEP Take 1 capsule by mouth 11/13/2023 Active onabotulinumtoxina 100 unt injection (4 sources) Acetylcholine Release Inhibitor Start: 02-04-2024 End: 02-04-2024 onabotulinum toxin type A 200 Units injection (BOTOX) Start: 02-04-2024 End: 02-04-2024 inject 1 dose by intramuscular injection once 200 Units, INTRAMUSCULAR, ONCE, 1 dose, On Thu02/04/24 at 1600, This record documents the total dose provided to patient. See progress note for specific locations and amounts administered. REFRIGERATE - Pharmaceutical Waste: Lab Pack - Start: 10-29-2023 End: 10-29-2023 onabotulinum toxin type A 20 0 Units injection (BOTOX) Start: 10-29-2023 End: 10-29-2023 onabotulinum toxin type A 20 0 Units injection (BOTOX) calcium chloride 0.0014 meq/ ml / potassium chloride 0.004 meq/ml / sodium chloride 0.103 meq/ml / sodium lactate 0.028 meq/ml injectable solution (1 source) Start: 03-08-2024 End: 03-08-2024 IntraVENous, at 125 mL/hr, CONTINUOUS, Starting on Thu03/08/24 at 0630, Pre-op (day of surgery) cyanocobalamin, vitamin B-12 , (VITAMIN B12 ORAL) (3 sources) End: 11-12-2022 cyanocobalamin, vitamin B-12 , (VITAMIN B12 ORAL) Take by mouth. 0 11/12/2022 Discontinued cyanocobalamin, vitamin B-12, (VITAMIN B12 ORAL) Take by mouth. 0 Active Comment on above: Take by mouth. enteric contrast (will be provided with radiology test) (20 sources) Start: 11-13-2023 End: 12-30-2024 enteric contrast (will be provided with radiology test) For CT ABD/PEL W IVCON Routine order Administer, As Directed One Time Only, via Oral, Rectal, both Oral and Rectal, Enteric Tube, Stoma or Indwelling Catheter, Enteric Contrast as designated per enteric contrast guidelines 1 Each 11/13/2023 12/30/2024 Discontinued (Course of therapy completed) Start: 11-13-[address] (will be provided with radiology test) For CT ABD/PEL W IVCON Routine order Administer, As Directed One Time Only, via Oral, Rectal, both Oral and Rectal, Enteric Tube, Stoma or Indwelling Catheter, Enteric Contrast as designated per enteric contrast guidelines 1 Each 11/13/2023 Active Start: 11-13-[address] (will be provided with radiology test) For CT ABD/PEL W IVCON Routine order Administer, As Directed One Time Only, via Oral, Rectal, both Oral and Rectal, Enteric Tube, Stoma or Indwelling Catheter, Enteric Contrast as designated per enteric contrast guidelines 1 Each 0 11/13/2023 Active 1 ml fentaNYL 0.05 mg/ml injection (1 source) Opioid Agonist Start: 03-08-2024 25 mcg, IntraV ENous, EVERY 5 MIN PRN, 4 doses, Starting on Thu03/08/24 at 0844, Until Discontinued, Pain Moderate (4-6), For Phase I. If Phase II oral narcotics have been administered in the last 60 minutes, do not administer IV narcotics unless specifically approved by provider., PACU only glucagon (rdna) 1 mg injection (1 source) Antihypoglycemic Agent Start: 03-08-2024 1 mg, S ubCUTAneous, PRN, Starting on Thu03/08/24 at 0844, Until Discontinued, Low blood sugar, Blood glucose LESS THAN 70 mg/dL and patient NOT ALERT or NPO and does not have IV access., After administration, attempt intravenous access and start dextrose 10% at 100 mL/hr. Repeat blood glucose in 15 minutes x 2 and notify provider., PACU only 1 ml HYDROmorphone hydrochloride 1 mg/ml cartridge (1 source) Opioid Agonist Start: 03-08-2024 0.5 mg, IntraV ENous, EVERY 5 MIN PRN, 2 doses, Starting on Thu03/08/24 at 0844, Until Discontinued, Pain Severe (7-10), For Phase I. If Phase II oral narcotics have been administered in the last 60 minutes, do not administer IV narcotics unless specifically approved by provider., PACU only iv contrast (will be provided with radiology test) (20 sources) Start: 11-13-2023 End: 12-30-2024 iv contrast (will be provided with radiology test) CT ABD/PEL -Inject, intravenously, once for 1 dose.No IV access, insert saline lock prior to the beginning of sedation, infusion, injection of imaging exam. Discontinue saline lock post exam. If Pt. has a central line or IVAD, may access for administration according to line specific nursing protocol. Once exam is complete flush line and de-access according to line specific nursing protocol in the CT contrast administration guidelines link. 1 Each 11/13/2023 12/30/2024 Discontinued (Course of therapy completed) Start: 11-13-2023 iv contrast (w ill be provided with radiology test) CT ABD/PEL -Inject, intravenously, once for 1 dose.No IV access, insert saline lock prior to the beginning of sedation, infusion, injection of imaging exam. Discontinue saline lock post exam. If Pt. has a central line or IVAD, may access for administration according to line specific nursing protocol. Once exam is complete flush line and de-access according to line specific nursing protocol in the CT contrast administration guidelines link. 1 Each 11/13/2023 Active Start: 11-13-2023 iv contrast (w ill be provided with radiology test) CT ABD/PEL -Inject, intravenously, once for 1 dose.No IV access, insert saline lock prior to the beginning of sedation, infusion, injection of imaging exam. Discontinue saline lock post exam. If Pt. has a central line or IVAD, may access for administration according to line specific nursing protocol. Once exam is complete flush line and de-access according to line specific nursing protocol in the CT contrast administration guidelines link. 1 Each 0 11/13/2023 Active lisinopril 5 mg oral tablet (18 sources) Angiotensin Converting Enzyme Inhibitor Start: 07-06-2023 End: 11-13-2023 lisinopril (ZESTRIL) 5 mg tablet 1 ml meperidine hydrochloride 25 mg/ml cartridge (1 source) Opioid Agonist Start: 03-08-2024 12.5 mg, IntraVENous, EVERY 5 MIN PRN, 4 doses, Starting on Thu03/08/24 at 0844, Until Discontinued, Shivering, , May give every 5 minutes to max of 50mg., PACU only metroNIDAZOLE 500 mg oral tablet (1 source) Nitroimidazole Antimicrobial Start: 10-20-2023 End: 10-27-2023 take 1 tablet by mouth twice daily metroNIDAZOLE (FLAGYL) 500 mg tablet Take 1 tablet by mouth two times a day for 7 days. 14 tablet 0 10/20/2023 10/27/2023 phentermine hydrochloride 37.5 mg oral tablet (20 sources) Sympathomimetic Amine Anorectic Start: 06-24-2023 End: 12-21-2023 take 1 tablet by mouth once daily before breakfast Phentermine HCl 37.5 mg tablet Take 1 tablet by mouth every morning (before breakfast) for 30 days. 0 06/24/2023 12/21/2023 Discontinued (Discontinued by Patient) Phentermine HCl (ADIPEX-P PO) Take by mouth 0 Active Comment on above: Take 1 tablet by vanesa th every morning (before breakfast) for 30 days. rimegepant 75 mg disintegrating oral tablet (15 sources) Start: End: rimegepant (NURTEC ODT) 75 mg disintegrating tablet Take 1 dissolvable tablet by mouth at migraine onset. May use once per day as needed. 16 tablet 11 08/13/2023 12/21/2023 Discontinued (Discontinued by Patient) Comment on above: Take 1 dissolvable t ablet by mouth at migraine onset. May use once per day as needed. semaglutide, weight loss, (WEGOVY) 0.25 mg/0.5 mL pen injector (20 sources) Start: End: inject 0.5 mL by subcutaneous injection every week semaglutide, weight loss, (WEGOVY) 0.25 mg/0.5 mL pen injector Indications: Class 3 severe obesity due to excess calories with serious comorbidity and body mass index (BMI) of 50.0 to 59.9 in adult (HCC) Inject 0.5 mL subcutaneously one time a week. Change to next dose after 4 weeks. 2 mL 12/21/2023 12/30/2024 Discontinued (Not on Formulary) Start: 12-21-2023 inject 0.5 mL by sub cutaneous injection every week semaglutide, weight loss, (WEGOVY) 0.25 mg/0.5 mL pen injector Indications: Class 3 severe obesity due to excess calories with serious comorbidity and body mass index (BMI) of 50.0 to 59.9 in adult Inject 0.5 mL subcutaneously one time a week. Change to next dose after 4 weeks. 2 mL 12/21/2023 Active Start: 12-21-2023 inject 0.5 mL by sub cutaneous injection every week semaglutide, weight loss, (WEGOVY) 0.25 mg/0.5 mL pen injector Indications: Class 3 severe obesity due to excess calories with serious comorbidity and body mass index (BMI) of 50.0 to 59.9 in adult ([facility]) Inject 0.5 mL subcutaneously one time a week. Change to next dose after 4 weeks. 2 mL 12/21/2023 Active Start: 12-21-2023 inject 0.5 mL by sub cutaneous injection every week semaglutide, weight loss, (WEGOVY) 0.25 mg/0.5 mL pen injector Indications: Class 3 severe obesity due to excess calories with serious comorbidity and body mass index (BMI) of 50.0 to 59.9 in adult ([facility]) Inject 0.5 mL subcutaneously one time a week. Change to next dose after 4 weeks. 2 mL 0 12/21/2023 Active semaglutide, weight loss, (WEGOVY) 0.5 mg/0.5 mL pen injector (20 sources) Start: 01-18-2024 End: 12-30-2024 semaglutide, weight loss, (WEGOVY) 0.5 mg/0.5 mL pen injector Indications: Class 3 severe obesity due to excess calories with serious comorbidity and body mass index (BMI) of 50.0 to 59.9 in adult ([facility]) Inject 0.5 mL subcutaneously one time a week. Patient should start on January 18, 2024. 2 mL 2 01/18/2024 12/30/2024 Discontinued (Not on Formulary) Start: 01-18-2024 semaglutide, w eight loss, (WEGOVY) 0.5 mg/0.5 mL pen injector Indications: Class 3 severe obesity due to excess calories with serious comorbidity and body mass index (BMI) of 50.0 to 59.9 in adult Inject 0.5 mL subcutaneously one time a week. Patient should start on January 18, 2024. 2 mL 2 01/18/2024 Active Start: 01-18-2024 semaglutide, w eight loss, (WEGOVY) 0.5 mg/0.5 mL pen injector Indications: Class 3 severe obesity due to excess calories with serious comorbidity and body mass index (BMI) of 50.0 to 59.9 in adult ([facility]) Inject 0.5 mL subcutaneously one time a week. Patient should start on January 18, 2024. 2 mL 2 01/18/2024 Active soft lens adjunctive solutio ns (REWETTING DROPS OPHTHALMIC) (6 sources) End: 12-15-2022 soft lens adjunctive solutio ns (REWETTING DROPS OPHTHALMIC) Use in eyes. 0 12/15/2022 Discontinued (Course of therapy completed) soft lens adjunc tive solutions (REWETTING DROPS OPHTHALMIC) Use in eyes. 0 Active Comment on above: Use in eyes. thyroid (alf) 30 mg oral tablet (5 sources) Start: 04-23-2022 End: 11-12-2022 take 1 tablet by mouth once daily [facility] THYROID 30 mg tablet Take 30 mg by mouth once daily. 0 04/23/2022 11/12/2022 Discontinued Start: 04-21-2022 take 1 tablet by vanesa th twice daily [place] Thyroid 30 mg Tab 30 mg = 1 tab(s), Oral, BID, # 180 tab(s), Refills(s) 1, Pharmacy: [facility]/pharmacy #[id number], 157, cm, 01/13/22 14:52:00 EDT, Height/Length Dosing, 110.7, kg, 01/13/22 14:52:00 EDT, Weight Dosing Start Date: 04/21/22 Status: Ordered Start: 08-19-2021 take 1 tablet by vanesa th twice daily [place] Thyroid 30 mg Tab 30 mg = 1 tab(s), Oral, BID, # 180 tab(s), Refills(s) 1, Pharmacy: [facility]/pharmacy #[id number], 157, cm, 04/25/21 14:43:00 EST, Height/Length Dosing, 110.9, kg, 04/25/21 14:43:00 EST, Weight Dosing Start Date: 08/19/21 Status: Ordered Comment on above: Take 30 mg by mouth once daily. tirzepatide, weight loss (ZEPBOUND) 2.5 mg/0.5 mL pen injector (2 sources) Start: 08-07-2023 tirzepatide, weight loss (ZEPBOUND) 2.5 mg/0.5 mL pen injector Indications: Class 3 severe obesity due to excess calories with serious comorbidity and body mass index (BMI) of 50.0 to 59.9 in adult (HCC) , ANTHONY (obstructive sleep apnea) Inject 2.5 mg subcutaneously one time a week. Take for 4 weeks. Week 5 go up to 5 mg dose. 2 mL 0 08/07/2023 Active Comment on above: Inject 2.5 mg subcut aneously one time a week. Take for 4 weeks. Week 5 go up to 5 mg dose. zavegepant (ZAVZPRET) 10 mg/actuation nasal spray (13 sources) Start: 06-02-2024 End: 12-30-2024 zavegepant (ZAVZPRET) 10 mg/actuation nasal spray One nasal spray at migraine onset. May use once per 24 hours. 6 Each 11 06/02/2024 12/30/2024 Discontinued (Not on Formulary) Start: 06-02-2024 zavegepant (ZA VZPRET) 10 mg/actuation nasal spray One nasal spray at migraine onset. May use once per 24 hours. 6 Each 11 06/02/2024 Active Zavegepant HCl (ZAVZPRET) 10 MG/ACT SOLN (9 sources) Start: 06-02-2024 End: 11-23-2024 Zavegepant HCl (ZAVZPRET) 10 MG/ACT SOLN One nasal spray at migraine onset. May use once per 24 hours. 06/02/2024 11/23/2024 Discontinued (LIST CLEANUP) Start: 06-02-2024 Zavegepant HCl (ZAVZPRET) 10 MG/ACT SOLN One nasal spray at migraine onset. May use once per 24 hours. 06/02/2024 Active Problems Active Problems Problem Classification Problem Date Documented Da te Episodic/Chronic Anxiety disorders (20 sources) Generalized anxiety disorder; Translations: [Generalized anxiety disorder] Onset: 3 05-31-2019 Chronic Cardiac dysrhythmias (1 source) Atrial premature complex ; Translations: [Atrial premature depolarization] 01-30-2023 Chronic Contraceptive and procreative management (5 sources) Intrauterine contraceptive device in situ; Translations: [Presence of (intrauterine) contraceptive device] Onset: 5 12-15-2023 Episodic Diabetes mellitus without complication (20 sources) Diabetes mellitus; Translations: [Type 2 diabetes mellitus without complications] Onset: 0 Resolved: 4 06-25-2022 Chronic Diabetes mellitus without complication (1 source) Impaired fasting glycemia; Translations: [Impaired fasting glucose] 06-21-2024 Episodic Esophageal disorders (20 sources) Acid reflux; Translations: [Gastroesophageal reflux disease] Onset: 2 03-23-2014 Chronic Headache; including migraine (20 sources) Migraine; Translations: [Migraine, unspecified, not intractable, without status migrainosus] Onset: 3 03-23-2014 Chronic Inflammatory diseases of female pelvic organs (2 sources) Hydrosalpinx; Translations: [Chronic salpingitis] Onset: 5 01-15-2024 Chronic Miscellaneous mental health disorders (20 sources) Chronic insomnia; Translations: [Psychophysiologic insomnia] Onset: 3 03-14-2020 Chronic Mood disorders (20 sources) Moderate recurrent major depression; Translations: [Major depressive disorder, recurrent, moderate] Onset: 4 05-25-2023 Chronic Nutritional deficiencies (6 sources) Vitamin D deficiency 10-21-2018 Chronic Osteoarthritis (20 sources) Osteoarthritis of right knee joint; Translations: [Unilateral primary osteoarthritis, right knee] Onset: 4 02-09-2024 Chronic Other circulatory disease (1 source) Labile systemic arterial hypertension; Translations: [Other specified symptoms and signs involving the circulatory and respiratory systems] 12-15-2022 Episodic Other connective tissue disease (4 sources) Polymyalgia; Translations: [Polymyalgia rheumatica] 11-26-2023 Chronic Other connective tissue disease (1 source) Polymyalgia rheumatica; Translations: [Polymyalgia (HCC)] Onset: 4 Chronic Other disorders of stomach and duodenum (2 sources) Disorder of function of stomach; Translations: [Disease of stomach and duodenum, unspecified] 12-30-2022 Episodic Other disorders of stomach and duodenum (1 source) Disease of stomach and duodenum, unspecified; Translations: [Dyspepsia and disorder of function of stomach] Onset: 3 Episodic Other eye disorders (1 source) Bilateral pseudopapilledema of eyes; 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, bilateral] 07-17-2023 Chronic Other female genital disorders (1 source) Vaginal discharge; Translations: [Other specified noninflammatory disorders of vagina] 12-15-2023 Episodic Other gastrointestinal disorders (20 sources) Irritable bowel syndrome; Translations: [Mixed irritable bowel syndrome] Onset: 3 12-05-2020 Chronic Other gastrointestinal disorders (8 sources) Irritable bowel syndrome with diarrhea; Translations: [Irritable bowel syndrome with diarrhea] Onset: 5 12-30-2022 Chronic Other gastrointestinal disorders (2 sources) Diarrhea; Translations: [Diarrhea, unspecified] Onset: 3 Episodic Other gastrointestinal disorders (2 sources) Swollen abdomen; Translations: [Abdominal distension (gaseous)] Onset: 3 Episodic Other gastrointestinal disorders (5 sources) Abdominal bloating 07-24-2022 Episodic Other hematologic conditions (2 sources) MCV - low 10-21-2018 Episodic Other lower respiratory disease (10 sources) Dyspnea; Translations: [Shortness of breath] 10-09-2022 Episodic Other nervous system disorders (20 sources) Benign intracranial hypertension; Translations: [Benign intracranial hypertension] Onset: 4 07-06-2023 Chronic Other nervous system disorders (1 source) Benign intracranial hypertension; Translations: [IIH (idiopathic intracranial hypertension)] Onset: 4 Chronic Other nervous system disorders (1 source) Paresthesia; Translations: [Paresthesia of skin] 07-06-2023 Episodic Other nervous system disorders (3 sources) H/O: migraine; Translations: [Personal history of other diseases of the nervous system and sense organs] 06-03-2024 Episodic Other nervous system disorders (1 source) Personal history of other diseases of the nervous system and sense organs; Translations: [Hx of migraines] Onset: 5 Episodic Other non-traumatic joint disorders (1 source) Joint pain; Translations: [Pain in unspecified joint] 11-26-2023 Episodic Other non-traumatic joint disorders (3 sources) Multiple joint pain; Translations: [Pain in unspecified joint] 11-26-2023 Episodic Other non-traumatic joint disorders (1 source) Pain in right knee; Translations: [Pain in joint, lower leg] 11-26-2023 Episodic Other nutritional; endocrine; and metabolic disorders (20 sources) Body mass index 40+ - severely obese; Translations: [Body mass index (BMI) 45.0-49.9, adult] Onset: 2 Chronic Other nutritional; endocrine; and metabolic disorders (1 source) Morbid obesity; Translations: [Morbid (severe) obesity due to excess calories] Onset: 2 Chronic Other nutritional; endocrine; and metabolic disorders (20 sources) Metabolic syndrome X; Translations: [Metabolic syndrome] Onset: 3 07-06-2019 Chronic Other nutritional; endocrine; and metabolic disorders (6 sources) Obese class III 01-11-2020 Chronic Other nutritional; endocrine; and metabolic disorders (3 sources) Metabolic syndrome; Translations: [METABOLIC SYNDROME] Onset: 2 Chronic Other nutritional; endocrine; and metabolic disorders (20 sources) Severe obesity; Translations: [Morbid (severe) obesity due to excess calories] Onset: 3 Chronic Other nutritional; endocrine; and metabolic disorders (20 sources) Hemochromatosis; Translations: [Hemochromatosis, unspecified] Onset: 5 10-25-2024 Chronic Other nutritional; endocrine; and metabolic disorders (3 sources) Hemochromatosis, unspecified; Translations: [Hemochromatosis, unspecified] Onset: 5 Chronic Other nutritional; endocrine; and metabolic disorders (6 sources) Hereditary hemochromatosis; Translations: [Hereditary hemochromatosis] Onset: 5 12-30-2024 Chronic Other screening for suspected conditions (not mental disorders or infectious disease) (9 sources) Encounter for screening for malignant neoplasm of cervix; Translations: [Cardiovascular stress test abnormal] Onset: 2 Episodic Other skin disorders (1 source) Loss of hair; Translations: [Nonscarring hair loss, unspecified] 09-23-2024 Episodic Other upper respiratory infections (2 sources) Acute upper respiratory infection; Translations: [Acute upper respiratory infection, unspecified] Onset: 5 Episodic Otitis media and related conditions (3 sources) Otitis media; Translations: [Otitis media, unspecified, right ear] Onset: 3 Episodic Residual codes; unclassified (20 sources) Obstructive sleep apnea syndrome; Translations: [Obstructive sleep apnea (adult) (pediatric)] Onset: 4 07-29-2023 Chronic Residual codes; unclassified (1 source) Procedure and treatment not carried out for other reasons; Translations: [Attempted IUD removal, unsuccessful] Onset: Episodic Systemic lupus erythematosus and connective tissue disorders (2 sources) Autoimmune disease; Translations: [Systemic involvement of connective tissue, unspecified] 11-13-2023 Chronic Thyroid disorders (20 sources) Hypothyroidism; Translations: [Other specified hypothyroidism] Onset: 0 01-04-2020 Chronic Unclassified (6 sources) Non-smoker 08-18-2019 Unclassified (3 sources) Patient encounter status 01-13-2022 Unclassified (1 source) Failed attempted procedure 11-23-2024 Unclassified (5 sources) Autogenerated Problem Onset: 12-25-2024 Past or Other Problems Problem Classification Problem Date Documented Date Episodic/Chronic Abdominal pain (20 sources) Pelvic and perineal pain; Translations: [Abdominal pain] Onset: 01-15-2022 Episodic Blindness and vision defects (20 sources) Bilateral myopia of eyes; Translations: [Myopia, bilateral] Onset: 06-25-2022 Episodic Cardiac dysrhythmias (20 sources) Bradycardia; Translations: [Bradycardia, unspecified] Onset: 10-14-2022 01-04-2020 Episodic Complication of device; implant or graft (14 sources) IUD threads lost; Translations: [Displacement of intrauterine contraceptive device, subsequent encounter] Onset: 11-23-2024 Resolved: 01-13-2025 02-16-2024 Episodic Conditions associated with dizziness or vertigo (20 sources) Lightheadedness; Translations: [Dizziness and giddiness] Onset: 07-06-2023 07-06-2023 Episodic Genitourinary symptoms and ill-defined conditions (7 sources) Finding of sensation of bladder; Translations: [Other symptoms and signs involving the genitourinary system] Onset: 04-26-2024 11-12-2023 Episodic Headache; including migraine (20 sources) Daily headache; Translations: [Cervicogenic headache] Onset: 10-16-2021 01-22-2021 Episodic Immunizations and screening for infectious disease (8 sources) Encounter for screening for human papillomavirus (HPV); Translations: [Anti-nuclear factor positive] Onset: 01-15-2022 11-26-2023 Episodic Joint disorders and dislocations; trauma-related (20 sources) Acute meniscal tear, medial; Translations: [Complex tear of medial meniscus, current injury, right knee, initial encounter] Onset: 02-18-2024 02-09-2024 Episodic Malaise and fatigue (7 sources) Fatigue; Translations: [Other fatigue] Onset: 02-15-2024 Episodic Nonspecific chest pain (20 sources) Chest pain, unspecified; Translations: [Chest pain] Onset: 10-14-2022 Episodic Nutritional deficiencies (20 sources) Iron deficiency; Translations: [Iron deficiency] Onset: 01-10-2022 06-16-2019 Episodic Other ear and sense organ disorders (20 sources) Tinnitus of vascular origin; Translations: [Pulsatile tinnitus, right ear] Onset: 08-13-2023 08-13-2023 Episodic Other ear and sense organ disorders (1 source) Pulsatile tinnitus, right ear; Translations: [Pulsatile tinnitus, right ear] Onset: 08-13-2023 Episodic Other lower respiratory disease (1 source) Shortness of breath; Translations: [Shortness of breath] Onset: 02-15-2024 Episodic Other nervous system disorders (20 sources) H/O: respiratory disease; Translations: [Personal history of other diseases of the nervous system and sense organs] Onset: 01-26-2023 01-26-2023 Episodic Other nervous system disorders (1 source) Ataxia, unspecified; Translations: [Ataxia, unspecified] Onset: 12-18-2022 Episodic Other non-traumatic joint disorders (1 source) Pain in unspecified joint; Translations: [Pain in joint, multiple sites] Onset: 02-15-2024 Episodic Other skin disorders (20 sources) Disorder of sweat gland; Translations: [Eccrine sweat disorder, unspecified] Onset: 07-06-2023 07-06-2023 Episodic Other skin disorders (2 sources) Nonscarring hair loss, unspecified; Translations: [Nonscarring hair loss, unspecified] Onset: 09-23-2024 Episodic Pleurisy; pneumothorax; pulmonary collapse (3 sources) Pleurisy; Translations: [Pleurisy] Onset: 02-15-2024 01-07-2024 Episodic Residual codes; unclassified (20 sources) Electronic cigarette user; Translations: [Other specified health status] Onset: 01-26-2023 01-26-2023 Episodic Residual codes; unclassified (20 sources) Early satiety; Translations: [Early satiety] Onset: 07-06-2023 07-06-2023 Episodic Residual codes; unclassified (10 sources) Failed attempted procedure; Translations: [Procedure and treatment not carried out for other reasons] Onset: 11-23-2024 Resolved: 01-13-2025 11-23-2024 Episodic Spondylosis; intervertebral disc disorders; other back problems (20 sources) Cervicalgia; Translations: [Chronic neck pain] Onset: 10-16-2021 Episodic Urinary tract infections (2 sources) Acute cystitis; Translations: [Acute cystitis with hematuria] Onset: 04-27-2024 04-27-2024 Episodic Results Test Name Value Interpretation Reference Range Facility MR Brain WO contraston 01-12 IMPRESSION: No acute intracranial abnormality. No convincing sequelae of idiopathic intracranial hypertension, although narrowing of the transverse sinuses was apparent on the 2022 examination, and not well characterized on the current examination to the lack of MRV or postcontrast imaging. No other secondary changes to strongly suggest idiopathic intracranial hypertension on the current exam. Data Entry Clerk: PSCB Transcribe Date/Time: Jan 12 2025 4:14P Dictated by : HELADIO HOLLAND MD This examination was interpreted and the report reviewed and electronically signed by: HELADIO HOLLAND MD on Jan 12 2025 4:26PM [facility] DIVISION OF RADIOLOGY * * *Final Report* * * DATE OF EXAM: Jan 12 2025 2:23PM [facility] 0294 - MRI BRAIN WO IVCON / PROCEDURE REASON: multiple diagnoses * * * * Physician Interpretation * * * * EXAMINATION: MRI BRAIN WO IVCON Clinical history: As provided by the ordering clinician via order question entries: Headache, persistent/atypical. Hx of migraines IIH (idiopathic intracranial hypertension). TECHNIQUE: Routine brain MRI protocol without contrast including diffusion images. MQ: MRBWO_2 Comparison: 03/02/2024 MRV without contrast and imported 12/18/2022 brain MRI without and with contrast RESULT: Acute Change: No abnormal restricted diffusion to suggest an acute infarct. Hemorrhage: No definitive sequelae of prior parenchymal hemorrhage within the constraints of the motion degraded susceptibility weighted images. Mass Lesion/ Mass Effect: No evidence of an intracranial mass or extra-axial fluid collection. No significant mass effect. Chronic Change: The white matter is within normal limits of signal intensity for age. Parenchyma: No significant volume loss for age. The brain parenchyma is otherwise within normal limits of signal intensity and morphology. Ventricles: Ventricular calibers are commensurate with the parenchymal volume and normal in configuration. Skull Base: Hypothalamic and pituitary region are grossly normal. Craniocervical junction is normal. No significant marrow replacement process. Vasculature: Major intracranial arterial structures, and dural venous sinuses show typical flow void, suggesting patency by spin echo criteria. Other: Small mucous retention cyst or polyp along the posterior superior margin of the right maxillary sinus. The paranasal sinuses are otherwise essentially clear. No substantial mastoid fluid. Clear middle ear cavities. The orbits are unremarkable. The extracranial soft tissues are within normal limits. DIVISION OF RADIOLOGY Provider, [facility] - 01/12/2025 * * *Final Report* * * DATE OF EXAM: Jan 12 2025 2:23PM [facility] 0294 - MRI BRAIN WO IVCON / PROCEDURE REASON: multiple diagnoses * * * * Physician Interpretation * * * * EXAMINATION: MRI BRAIN WO IVCON Clinical history: As provided by the ordering clinician via order question entries: Headache, persistent/atypical. Hx of migraines IIH (idiopathic intracranial hypertension). TECHNIQUE: Routine brain MRI protocol without contrast including diffusion images. MQ: MRBWO_2 Comparison: 03/02/2024 MRV without contrast and imported 12/18/2022 brain MRI without and with contrast RESULT: Acute Change: No abnormal restricted diffusion to suggest an acute infarct. Hemorrhage: No definitive sequelae of prior parenchymal hemorrhage within the constraints of the motion degraded susceptibility weighted images. Mass Lesion/ Mass Effect: No evidence of an intracranial mass or extra-axial fluid collection. No significant mass effect. Chronic Change: The white matter is within normal limits of signal intensity for age. Parenchyma: No significant volume loss for age. The brain parenchyma is otherwise within normal limits of signal intensity and morphology. Ventricles: Ventricular calibers are commensurate with the parenchymal volume and normal in configuration. Skull Base: Hypothalamic and pituitary region are grossly normal. Craniocervical junction is normal. No significant marrow replacement process. Vasculature: Major intracranial arterial structures, and dural venous sinuses show typical flow void, suggesting patency by spin echo criteria. Other: Small mucous retention cyst or polyp along the posterior superior margin of the right maxillary sinus. The paranasal sinuses are otherwise essentially clear. No substantial mastoid fluid. Clear middle ear cavities. The orbits are unremarkable. The extracranial soft tissues are within normal limits. IMPRESSION IMPRESSION: No acute intracranial abnormality. No convincing sequelae of idiopathic intracranial hypertension, although narrowing of the transverse sinuses was apparent on the 2022 examination, and not well characterized on the current examination to the lack of MRV or postcontrast imaging. No other secondary changes to strongly suggest idiopathic intracranial hypertension on the current exam. Data Entry Clerk: PSCB Transcribe Date/Time: Jan 12 2025 4:14P Dictated by : HELADIO HOLLAND MD This examination was interpreted and the report reviewed and electronically signed by: HELADIO HOLLAND MD on Jan 12 2025 4:26PM EST [facility] Radiology Study observation (narrative) [facility] MR Brain WO contrastOrdered By: [facility] Provider on 01-12-2025 [facility] MRI BRAIN WO IVCONon 025 MRI BRAIN WO IVCON * * *Final Report* * * DATE OF EXAM: Jan 12 2025 2:23PM [facility] 0294 - MRI BRAIN WO IVCON / PROCEDURE REASON: multiple diagnoses * * * * Physician Interpretation * * * * EXAMINATION: MRI BRAIN WO IVCON Clinical history: As provided by the ordering clinician via order question entries: Headache, persistent/atypical. Hx of migraines IIH (idiopathic intracranial hypertension). TECHNIQUE: Routine brain MRI protocol without contrast including diffusion images. MQ: MRBWO_2 Comparison: 03/02/2024 MRV without contrast and imported 12/18/2022 brain MRI without and with contrast RESULT: Acute Change: No abnormal restricted diffusion to suggest an acute infarct. Hemorrhage: No definitive sequelae of prior parenchymal hemorrhage within the constraints of the motion degraded susceptibility weighted images. Mass Lesion/ Mass Effect: No evidence of an intracranial mass or extra-axial fluid collection. No significant mass effect. Chronic Change: The white matter is within normal limits of signal intensity for age. Parenchyma: No significant volume loss for age. The brain parenchyma is otherwise within normal limits of signal intensity and morphology. Ventricles: Ventricular calibers are commensurate with the parenchymal volume and normal in configuration. Skull Base: Hypothalamic and pituitary region are grossly normal. Craniocervical junction is normal. No significant marrow replacement process. Vasculature: Major intracranial arterial structures, and dural venous sinuses show typical flow void, suggesting patency by spin echo criteria. Other: Small mucous retention cyst or polyp along the posterior superior margin of the right maxillary sinus. The paranasal sinuses are otherwise essentially clear. No substantial mastoid fluid. Clear middle ear cavities. The orbits are unremarkable. The extracranial soft tissues are within normal limits. IMPRESSION: No acute intracranial abnormality. No convincing sequelae of idiopathic intracranial hypertension, although narrowing of the transverse sinuses was apparent on the 2022 examination, and not well characterized on the current examination to the lack of MRV or postcontrast imaging. No other secondary changes to strongly suggest idiopathic intracranial hypertension on the current exam. Data Entry Clerk: PSCB Transcribe Date/Time: Jan 12 2025 4:14P Dictated by : HELADIO HOLLAND MD This examination was interpreted and the report reviewed and electronically signed by: HELADIO HOLLAND MD on Jan 12 2025 4:26PM EST [id number] Normal [facility] ALLIED HEALTHon 01-11-2025 ALLIED HEALTH HNO ID: [id number] Author: CA KWOK RT(R) Service: Radiology Author Type: Technologist Type: Allied Health Filed: 01/11/2025 15:32 Note Text: RADIOLOGY SERVICE PROGRESS NOTE DATE OF SERVICE: January 11, 2025 TIME OF SERVICE: 3:30pm EVENT: EXAM/PROCEDURE NOT COMPLETED - Patient refused exam/procedure. and Patient became claustrophobic, reaction was: Severe. ADDITIONAL EVENT DETAILS: Instructed patient to reschedule to large bore MRI scanner facility. Pt has rescheduling instructions. SIGNATURE: RT Alonso(R) PATIENT NAME: Case Abdi DATE: January 11, 2025 TIME: 3:31 PM PAGER/CONTACT #: Normal [facility] Hemoglobin and Hematocriton 01-02-2025 Hematocrit (Bld) [Volume fraction] 40.8 % Normal 37.0-47.0 [place] [facility] Comment on above: Performed By: #### H H #### [facility] [address] [place] [address] Hemoglobin (Bld) [Mass/Vol] 14.2 g/dL Normal 12.0-16.0 [facility] Comment on above: Performed By: #### H H #### [facility] [address] [place] [address] [facility] Iron Binding Capon 5 % Fe Saturation 36 % Normal 20-55 [facility] Iron [Mass/Vol] 98 ug/dL Normal 37-145 [facility] Total Fe Binding Cap 272 ug/dL Normal 250-450 [facility] Fe Bind Cap 174 ug/dL Normal 112-347 [facility] Comment on above: Result Comment: Perf ormed at [facility], [address] [place] [id number] . Iron and TIBCon 01-02-2025 Iron % Saturation 36 % 20 - 55 % [facility] TIBC 272 ug/dL 250 - 450 ug/dL [facility] UIBC 174 ug/dL 112 - 347 ug/dL [facility] Comment on above: Performed at [facility], [address] [place] [id number] . [facility] HISTORY PHYSICALon 5 HISTORY PHYSICAL HNO ID: [id number] Author: CHITO PEÑA PA-C Service: ? Author Type: Physician Business Mail Entry Clerk Type: H&P Filed: 12/30/2024 10:36 Note Text: [facility] HISTORY AND PHYSICAL EXAMINATION SERVICE DATE: 12/30/2024 SERVICE TIME: 10:35 AM PRIMARY CARE PHYSICIAN: Vargas Malhotra DO Assessment Patient has the following medical conditions which may affect herbert-operative course: Chronic migraine without aura, intractable, without status migrainosus Assessment: reports much improvement on topiramate (TOPAMAX), rare headache now. Continue as prescribed ANTHONY (obstructive sleep apnea) Assessment: Polysomnogram completed 2022. AHI = 20.6, LONG = 0 Patient reports non-compliance with CPAP Acid reflux Assessment: Stable on RX, continue as prescribed ESOMEPRAZOLE MAGNESIUM Class 3 severe obesity due to excess calories with serious comorbidity and body mass index (BMI) of 50.0 to 59.9 in adult (HCC) Assessment: Body mass index is 52.13 kg/m?. Anxiety and depression Assessment: Stable on RX, continue as prescribed sertraline (ZOLOFT) and buPROPion XL (WELLBUTRIN XL). Denies concerning symptoms Irritable bowel syndrome with diarrhea Assessment: reports abdominal pain Hereditary hemochromatosis Assessment: was having weekly phlebotomy, but reports less currently. Followed by PCP ANESTHESIA FINDINGS: Intubation History: No history of difficult intubation. No abnormal airway history Significant Anesthesia Considerations: none Airway History: No history of difficult airway No abnormal airway history Hall Activity Status Index: METS: Walk indoors, such as around the house (1.75 METs) Do light work around the house, such as dusting or washing dishes (2.70 METs) Take care of self; that is eating, dressing, bathing, using the toilet (2.75 METs) Walk a block or two on level ground (2.75 METs) Do moderate work around the house, such as vacuuming, sweeping floors, or carrying in groceries (3.50 METs) Do yardwork, such as raking leaves, weeding, or pushing a power mower (4.50 METs) Have sexual relations (5.25 METs) Climb a flight of stairs or walk up a hill (5.50 METs) Participate in moderate recreational activites, such as golf, bowling, dancing, doubles tennis, or throwing a baseball or football (6.00 METs) Do heavy work around the house, such as scrubbing floors, lifting or moving heavy furniture (8.00 METs) Cannot participate in strenuous sport, such as swimming, singles tennis, football, basketball, or skiing Cannot run a short distance DASI Score: 42.7 Patient denies any chest pain or undue shortness of breath with the above physical activity. Clinical Frailty Scale: 3. Well, with treated comorbid disease STOP-Bang Score: STOP-Bang Score: (+ ANTHONY, doesn't use CPAP regularly) [id number] Score: Age: <65 Sex: female CHF history: No Vascular disease history: No Diabetes history: No [id number] Score: ARISCAT Score: Age: <=50 Respiratory infection in the last month: No Preoperative anemia: Yes Surgical incision: upper abdominal Duration of surgery: <2 hrs Emergency procedure: No ARISCAT Score: I - PHYSICAL EVALUATION AIRWAY Patient intubated: No. Tracheostomy tube not present Mallampati: I. TM distance: >3 FB. Neck ROM: full ROM without neurological symptoms. Mouth opening: adequate. Short neck: no. Thick neck: yes Keys present: no Lip Bite Test: II DENTAL Dental findings: teeth intact. II - ANESTHESIA PLAN Anesthetic Plan: other Anesthetic plan additional comments: *PACC/TCI - anesthesia choice. Beta Liss Monitoring Plan Post Procedure Analgesic Plan Prepared for Surgery: optimally prepared for surgery. Per PACC guidelines no other testing is required CONSULTS: Patient does not require consults for optimization at this time Planned Anesthetic: other anesthesia choice This is a virtual visit using Snipshot video visit. It required patient-provider interaction for the medical decision making as documented below. REASON FOR VISIT: Case Abdi is a 34 year old female who is scheduled for Procedure(s): REMOVE IUD NON EMBEDDED W/ HYSTEROSCOPY (N/A) at the request of Gail Gilmore, for consultation. My final recommendation will be communicated back to the requesting physician by way of shared medical record or letter. Subjective The patient has the following: ACTIVE PROBLEM LIST Acid Reflux Diabetes Mellitus (Hcc) Hypothyroidism Iron Deficiency Migraine Myopia of Both Eyes With Astigmatism Wears Contact Lenses Class 3 Severe Obesity Due to Excess Calories With Serious Comorbidity and Body Mass Index (Bmi) of 50.0 to 59.9 in Adult (Hcc) History of Sleep Apnea Electronic Cigarette Use Atypical Chest Pain Chronic Nonintractable Headache Episodic Lightheadedness Iih (Idiopathic Intracranial Hypertension) Sweating Abnorma (more content not included)... Normal [facility] Hemoglobin and Hematocriton 12-19-2024 Hematocrit (Bld) [Volume fraction] 38.5 % Normal 37.0-47.0 [place] [facility] [employer] Comment on above: Performed By: #### H H #### [facility] [address] [facility] [address] Hemoglobin (Bld) [Mass/Vol] 12.8 g/dL Normal 12.0-16.0 [employer] Comment on above: Performed By: #### H H #### [facility] [address] [place] [address] [facility] Iron Binding Capon 5 % Fe Saturation 38 % Normal 20-55 [facility] Iron [Mass/Vol] 86 ug/dL Normal 37-145 [facility] Total Fe Binding Cap 229 ug/dL Low 250-450 [facility] Fe Bind Cap 143 ug/dL Normal 112-347 [facility] Comment on above: Result Comment: Perf ormed at [facility], [address] [place] [address] . Iron and TIBCon 12-19-2024 Interpretation and review of laboratory results Abnormal [facility] Iron % Saturation 38 % 20 - 55 % [facility] TIBC 229 ug/dL Low 250 - 450 ug/dL [facility] UIBC 143 ug/dL 112 - 347 ug/dL [facility] Comment on above: Performed at [facility], [address] [place] [id number] . [facility] Iron Binding Capon 5 % Fe Saturation 24 % Normal 20-55 [facility] Iron [Mass/Vol] 64 ug/dL Normal 37-145 [facility] Total Fe Binding Cap 266 ug/dL Normal 250-450 [facility] Fe Bind Cap 202 ug/dL Normal 112-347 [facility] Comment on above: Result Comment: Perf ormed at [facility], [address] [place] [address] . CNOVon 12-12-2024 CNOV Office Visit (OBGYNC ) CASE ABDI ([id number]) 1990 F Date Time Provider Department 12/12/24 2:00 PM GAIL ENGEL During your visit today, we recorded the following information about you: Pulse Blood pressure Weight 61/minute 119/87 129.2 kg Gail Engel DO 12/12/2024 2:07 PM Signed [facility] [employer] [facility] [place] If you have concerns or questions about your health, please call us: Thursday through Thursday, 8 am to 4:30 pm, please call the [facility] nurse coordinators. You may leave a voicemail we will return your call within 48 hours. Voicemails are not checked on evenings and weekends. The [facility] number is [phone] Evenings and weekends, please call any [facility] OBGYN office and ask to speak with the content production specialist on-call: [phone] (west) or [phone] (east). For emergencies, call [phone]. Thank you for choosing [facility] for your health care. Information on [employer] in Contraceptive Choice and Knowledge: [email or web address]/patient-r esources/?fwp_resource_cate gory=nllecgn-qbdkugfhct-d- nd-education Bedsider: www.bedsider.org Gail Engel DO 12/12/2024 3:10 PM Signed Point of care ultrasound was performed. See imaging tab for details. The sensitive examination was discussed with the Patient or Patient's Authorized Staff Attorney. As applicable, any other physician, advance practice provider, medical student, or other health professional student that will be observing or involved in the sensitive examination for educational or training purposes was discussed with the Patient or Authorized Staff Attorney. The Patient or Authorized Staff Attorney has agreed to proceed with the sensitive examination. DO Ovi Akins Ashley, DO 12/12/2024 3:10 PM Signed [facility] - IUD REMOVAL Case R Jayme presents today for IUD removal due to pain Referred by Patti Rutherford PA because IUD strings missing IUD type: Mirena (Progesterone) per pt, insertion note not available Prior US confirmed intrauterine location:Yes PELVIC US WHI (09/29/2024 8:44 AM) Correct position noted Pt counseled on hysteroscopic vs US guided removal and pt opts for office US guided removal Informed consent obtained. UNIVERSAL PROTOCOL / SAFETY CHECKLIST Procedure to be Performed: Paracervical block, IUD removal, possible cervical dilation, US guidance Sign In: A Moment of CARE was completed. Personnel directly involved with the procedure wore the appropriate PPE (Personal Protective Equipment). Patient/Surrogate Stated/Verified: PATIENT VERIFIED(optional for EMERGENT procedures): Patient name, Date of , Relevant allergies, and The intended procedure Time Out Communication: Intended patient and procedure match the source documents. Consent documented and matches the intended procedure. Relevant labs, photos, and/or imaging studies have been reviewed. Medications required for procedure verified. No fire risk assessment and interventions applicable. No implant(s) inserted. Sign Out: SIGN OUT (optional for EMERGENT procedures): No specimen collected. All instruments, equipment, possible retained foreign bodies accounted for. Post-procedure follow-up management communicated and Plan of Care Visit completed when applicable. Gail Engel DO PROCEDURE DETAILS Bimanual exam revealed anteverted uterus. A speculum was inserted. Cervix was prepped with betadine. A paracervical block was administered with 20 mL of 1% lidocaine without epinephrine A tenaculum was placed at 12 oclock Attempt to pass the alligator forcep through the internal os was unsuccessful to sharp anteverted angle between cervix and uterus The cervix was dilated to 18 hanks and the alligator forcep could not be passed beyond the internal os The patient requested that the procedure be stopped due to pain Hemostasis was noted. All instruments were removed. The patient tolerated the procedure fair. PLAN: IUD was not removed; procedure discontinued due to pain Recommend removal in OR; will need hospital due to BMI/comorbid conditions Pt is s/p tubal ligation I explained the risks of surgery including pain, bleeding, infection, injury to abdominal organs such as bladder or bowel, injury to vagina, uterus, or cervix, inability to complete the procedure, failure to obtain a correct diagnosis, DVT/PE, anesthetic complications, and . Her questions were answered. Written informed consent was obtained for hysteroscopic IUD removal. Will schedule case. Gail Engel DO Referring Provider: PATTI RUTHERFORD [[id number]] Allergies As of Date: 12/12/2024 (No Known Allergies) Date Reviewed: 12/12/2024 Reviewed by: Gail Engel DO - Fully Assessed Reason for Visit: CC [Other] Cmt: IUD Removal, strings lost Primary Visit Diag (more content not included)... Normal [facility] Hemoglobin and Hematocriton 12-12-2024 Hematocrit (Bld) [Volume fraction] 40.3 % 37.0 - 47.0 % [facility] Hemoglobin (Bld) [Mass/Vol] 13.6 g/dL 12.0 - 16.0 g/dL [facility] Hematocrit (Bld) [Volume fraction] 40.3 % Normal 37.0-47.0 [facility] Comment on above: Performed By: #### H H #### [facility] [address] [place] [address] Hemoglobin (Bld) [Mass/Vol] 13.6 g/dL Normal 12.0-16.0 [facility] Comment on above: Performed By: #### H H #### [facility] [address] [place] [address] Hemoglobin and Hematocriton 12-06-2024 Hematocrit (Bld) [Volume fraction] 40.2 % Normal 37.0-47.0 [facility] Comment on above: Performed By: #### H H #### [facility] [address] [place] [address] Hemoglobin (Bld) [Mass/Vol] 13.5 g/dL Normal 12.0-16.0 [facility] Comment on above: Performed By: #### H H #### [facility] [address] [place] [address] [facility] Iron Binding Capon 5 % Fe Saturation 34 % Normal 20-55 [facility] Iron [Mass/Vol] 89 ug/dL Normal 37-145 [facility] Total Fe Binding Cap 264 ug/dL Normal 250-450 [facility] Fe Bind Cap 175 ug/dL Normal 112-347 [facility] Comment on above: Result Comment: Perf ormed at [facility], [address] [place] [address] . Iron and TIBCon 12-06-2024 Iron % Saturation 34 % 20 - 55 % [facility] TIBC 264 ug/dL 250 - 450 ug/dL [facility] UIBC 175 ug/dL 112 - 347 ug/dL [facility] Comment on above: Performed at [facility], [address] [place] [address] . [facility] Hemoglobin and Hematocriton 11-28-2024 Hematocrit (Bld) [Volume fraction] 39.1 % Normal 37.0-47.0 [facility] Comment on above: Performed By: #### H H #### [facility] [address] [place] [address] Hemoglobin (Bld) [Mass/Vol] 13.5 g/dL Normal 12.0-16.0 [facility] Comment on above: Performed By: #### H H #### [facility] [address] [place] [address] [facility] Iron Binding Capon 5 % Fe Saturation 34 % Normal 20-55 [facility] Iron [Mass/Vol] 86 ug/dL Normal 37-145 [facility] Total Fe Binding Cap 255 ug/dL Normal 250-450 [facility] Fe Bind Cap 169 ug/dL Normal 112-347 [facility] Comment on above: Result Comment: Perf ormed at [facility], [address] [place] [address] . Iron and TIBCon 11-28-2024 Iron % Saturation 34 % 20 - 55 % [facility] TIBC 255 ug/dL 250 - 450 ug/dL [facility] UIBC 169 ug/dL 112 - 347 ug/dL [facility] Comment on above: Performed at [facility], [address] [place] [address] . [facility] CNOVon 11-23-2024 CNOV Office Visit ([facility] ) CASE ABDI ([id number]) 1990 F Date Time Provider Department 11/23/24 11:00 AM TOD PATTI [facility] During your visit today, we recorded the following information about you: Pulse Blood pressure Weight 74/minute 141/86 129.5 kg Patti [place] PA-C 11/23/2024 11:45 AM Signed Case Abdi presents for removal of IUD due to pain. UNIVERSAL PROTOCOL / SAFETY CHECKLIST Procedure to be Performed: IUD removal Sign In: A Moment of CARE was completed. Appropriate PPE (Personal Protective Equipment) worn by all providers involved with the procedure. Special equipment utilized uterine forcep. Patient/Surrogate Stated/Verified: Patient name, Date of , Relevant allergies, and The intended procedure Time Out: Relevant labs, photos, and/or imaging studies have been reviewed. Intended patient and procedure match the source document(s) (e.g. consent, HANDP, associated studies [imaging, pathology]) match the intended patient and procedure. Consent obtained and matches the intended procedure. Yes. Correct side/site is not applicable. Medications required for this procedure are not applicable. Fire risk assessed and is not applicable. Implants: are not applicable. Sign Out: Specimens not collected. All instruments, equipment, possible retained foreign bodies are accounted for. Yes. The post-procedure plan of care has been communicated to the patient or surrogate. PROCEDURE: Speculum placed in vagina, IUD string NOT visualized Uterine forcep utilized and was unsuccessful . ASSESSMENT/PLAN: IUD NOT removed ASSESSMENT/PLAN: 1. Intrauterine contraceptive device threads lost, subsequent encounter - ICD9: V58.89, 996.32, ICD10: T83.32XD (primary diagnosis) - REMOVE INTRAUTERINE DEVICE - CONSULT COMPLEX CONTRACEPTION 2. Encounter for IUD removal - ICD9: V25.12, ICD10: Z30.432 - REMOVE INTRAUTERINE DEVICE - CONSULT COMPLEX CONTRACEPTION 3. Attempted IUD removal, unsuccessful - ICD9: V64.3, V45.51, ICD10: Z53.8, Z97.5 - REMOVE INTRAUTERINE DEVICE - CONSULT COMPLEX CONTRACEPTION Patti [place] PA-C Referring Provider: CYNDI FREEDMAN [[id number]] Allergies As of Date: 11/23/2024 (No Known Allergies) Date Reviewed: 11/23/2024 Reviewed by: Farrah Suazo RN - Fully Assessed Reason for Visit: IUD Removal [1950] Primary Visit Diagnosis:Intrauterine contraceptive device threads lost, subsequent encounter [T83.32XD] Other Visit Diagnoses:Encounter for IUD removal [Z30.432] Attempted IUD removal, unsuccessful [Z53.8, Z97.5] Order(s):REMOVE INTRAUTERINE DEVICE [[id number]] Order #: [id number] CONSULT COMPLEX CONTRACEPTION [[id number]] Order #: [id number]: 1 Prescriptions as of 11/23/2024 - topiramate (TOPAMAX) 100 mg tablet Take 1 tablet by mouth daily at bedtime. - esomeprazole (NEXIUM) 40 mg capsule TAKE 1 CAPSULE BY MOUTH TWO TIMES A DAY BEFORE MEALS - zavegepant (ZAVZPRET) 10 mg/actuation nasal spray One nasal spray at migraine onset. May use once per 24 hours. - semaglutide, weight loss, (WEGOVY) 0.25 mg/0.5 mL pen injector Inject 0.5 mL subcutaneously one time a week. Change to next dose after 4 weeks. - semaglutide, weight loss, (WEGOVY) 0.5 mg/0.5 mL pen injector Inject 0.5 mL subcutaneously one time a week. Patient should start on January 18, 2024. - ggebfl-idkxcyhi-jtdryux (ZENPEP) 25,000-79,000- 105,000 unit delayed release capsule Take 1 capsule by mouth three times a day with meals. - iv contrast (will be provided with radiology test) CT ABD/PEL -Inject, intravenously, once for 1 dose.No IV access, insert saline lock prior to the beginning of sedation, infusion, injection of imaging exam. Discontinue saline lock post exam. If Pt. has a central line or IVAD, may access for administration according to line specific nursing protocol. Once exam is complete flush line and de-access according to line specific nursing protocol in the CT contrast administration guidelines link. - enteric contrast (will be provided with radiology test) For CT ABD/PEL W IVCON Routine order Administer, As Directed One Time Only, via Oral, Rectal, both Oral and Rectal, Enteric Tube, Stoma or Indwelling Catheter, Enteric Contrast as designated per enteric contrast guidelines - hyoscyamine SR (LEVBID) 0.375 mg 12 hr tablet TAKE 1 TABLET BY MOUTH TWICE A DAY - multivit with calcium,iron,min (WOMEN'S MULTIPLE VITAMINS ORAL) Take by mouth once daily. - ascorbic acid/vitamin E/biotin (HAIR, SKIN, NAILS WITH BIOTIN ORAL) Take by mouth. - sertraline (ZOLOFT) 25 mg tablet Take 25 mg by mouth. - cholecalciferol, vitamin D3, (VITAMIN D3 ORAL) Take by mouth. - buPROPion XL (WELLBUTRIN XL) 300 mg 24 hr tablet Take 300 mg by mouth once daily. - MAGNESIUM ORAL Take by mouth. Facility-Administered Medications as of 11/23/2024 - acetylcholine 10% so (more content not included)... Normal [facility] Hemoglobin and Hematocriton 11-21-2024 Hematocrit (Bld) [Volume fraction] 39.5 % Normal 37.0-47.0 [facility] Comment on above: Performed By: #### H H #### [facility] [address] [facility] [address] Hemoglobin (Bld) [Mass/Vol] 13.3 g/dL Normal 12.0-16.0 [facility] Comment on above: Performed By: #### H H #### [facility] [address] [facility] [address] [facility] Iron Binding Capon 5 % Fe Saturation 65 % Critically high 20-55 [facility] Iron [Mass/Vol] 157 ug/dL Critically high 37-145 [facility] Total Fe Binding Cap 240 ug/dL Low 250-450 [facility] Fe Bind Cap 83 ug/dL Low 112-347 [facility] Comment on above: Result Comment: Perf ormed at [facility], [address] [place] [address] . Iron and TIBCon 11-21-2024 Interpretation and review of laboratory results Abnormal [facility] Iron % Saturation 65 % High 20 - 55 % [facility] TIBC 240 ug/dL Low 250 - 450 ug/dL [facility] UIBC 83 ug/dL Low 112 - 347 ug/dL [facility] Comment on above: Performed at [facility], [address] [place] [address] . [facility] Hemoglobin and Hematocriton 11-14-2024 Hematocrit (Bld) [Volume fraction] 40.6 % Normal 37.0-47.0 [facility] Comment on above: Performed By: #### H H #### [facility] [address] [place] [address] Hemoglobin (Bld) [Mass/Vol] 13.6 g/dL Normal 12.0-16.0 [facility] Comment on above: Performed By: #### H H #### [facility] [address] [place] [address] [facility] Iron Binding Capon 5 % Fe Saturation 54 % Normal 20-55 [facility] Iron [Mass/Vol] 136 ug/dL Normal 37-145 [facility] Total Fe Binding Cap 253 ug/dL Normal 250-450 [facility] Fe Bind Cap 117 ug/dL Normal 112-347 [facility] Comment on above: Result Comment: Perf ormed at [facility], [address] [place] [address] . Iron and TIBCon 11-14-2024 Iron % Saturation 54 % 20 - 55 % [facility] TIBC 253 ug/dL 250 - 450 ug/dL [facility] UIBC 117 ug/dL 112 - 347 ug/dL [facility] Comment on above: Performed at [facility], [address] [place] [address] . [facility] Iron Binding Capon 5 % Fe Saturation 19 % Low 20-55 [facility] Iron [Mass/Vol] 45 ug/dL Normal 37-145 [facility] Total Fe Binding Cap 240 ug/dL Low 250-450 [facility] Fe Bind Cap 195 ug/dL Normal 112-347 [facility] Comment on above: Result Comment: Perf ormed at [facility], [address] [place] [address] . Hemoglobin and Hematocriton 10-31-2024 Hematocrit (Bld) [Volume fraction] 38.8 % Normal 37.0-47.0 [facility] Comment on above: Performed By: #### H H #### [facility] [address] [place] [address] Hemoglobin (Bld) [Mass/Vol] 13.2 g/dL Normal 12.0-16.0 [facility] Comment on above: Performed By: #### H H #### [facility] [address] [place] [address] [facility] Iron Binding Capon 5 % Fe Saturation 34 % Normal 20-55 [facility] Iron [Mass/Vol] 82 ug/dL Normal 37-145 [facility] Total Fe Binding Cap 244 ug/dL Low 250-450 [facility] Fe Bind Cap 162 ug/dL Normal 112-347 [facility] Comment on above: Result Comment: Perf ormed at [facility], [address] [place] [address] . Hemoglobin and Hematocriton 10-25-2024 Hematocrit (Bld) [Volume fraction] 41.5 % Normal 37.0-47.0 [facility] Comment on above: Performed By: #### H H #### [facility] [address] [place] [address] Hemoglobin (Bld) [Mass/Vol] 14.1 g/dL Normal 12.0-16.0 [facility] Comment on above: Performed By: #### H H #### [facility] [address] [place] [address] [facility] Iron Binding Capon 5 % Fe Saturation 71 % Critically high 20-55 [facility] Iron [Mass/Vol] 174 ug/dL Critically high 37-145 [facility] Total Fe Binding Cap 244 ug/dL Low 250-450 [facility] Fe Bind Cap 70 ug/dL Low 112-347 [facility] Comment on above: Result Comment: Perf ormed at [facility], [address] [place] [address] . Iron and TIBCon 10-19-2024 Interpretation and review of laboratory results Abnormal [facility] Iron % Saturation 71 % High 20 - 55 % [facility] TIBC 244 ug/dL Low 250 - 450 ug/dL [facility] UIBC 70 ug/dL Low 112 - 347 ug/dL [facility] Comment on above: Performed at [facility], [address] [place] [address] . 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 Homozygosity for this mutation accounts for 80-90 percent of the hemochromatosis patients of [place] descent. The frequency of this mutation in other populations is lower. H63D: Negative - This patient is negative for the HFE H63D mutation. S65C: Negative - This patient is negative for the HFE S65C mutation. This result has been reviewed and approved by Nicole Holloway M.D. BACKGROUND INFORMATION: Hemochromatosis (HFE) 3 Mutations CHARACTERISTICS: Disorder of iron metabolism resulting in excessive iron storage leading to increased skin pigmentation, arthritis, hypogonadism, diabetes mellitus, heart arrhythmias/failure, cirrhosis and liver carcinoma. INCIDENCE: One in 300 individuals of [place] descent; unknown in other ethnicities. INHERITANCE: Autosomal recessive. PENETRANCE: 5 percent of C282Y homozygotes, 1 percent of C282Y/H63D compound heterozygotes and rare H63D homozygotes develop clinical symptoms. CAUSE: Two pathogenic HFE gene mutations on opposite chromosomes. MUTATIONS TESTED: p.C282Y (c.845G>A), p.H63D (c.187C>G), and p.S65C (c.193A>T). CLINICAL SENSITIVITY: 85 percent of hereditary hemochromatosis in Northern Europeans is caused by C282Y homozygosity and 5 percent by C282Y/H63D compound heterozygosity. METHODOLOGY: PCR and fluorescence monitoring. ANALYTICAL SENSITIVTY AND SPECIFICITY: 99 percent. LIMITATIONS: HFE mutations, other than those targeted, will not be detected. Diagnostic errors can occur due to rare sequence variations. This test was developed and its performance characteristics determined by [facility]. It has not been cleared or approved by the [place] Food and Drug Administration. This test was performed in a CLIA certified laboratory and is intended for clinical purposes. Counseling and informed consent are recommended for genetic testing. Consent forms are available online. Performed By: [facility] [address] [place] [address] Log Washer: Talha Becerra MD, PhD CLIA Number: [id number] HFE PCR Specimen Whole Blood Normal [facility] S65C Hemochromatosis Mutation Negative Normal [facility] Ambulatory Visit Summaryon 0 09-30-2024 Ambulatory Visit Summary Ambulatory Visit Summary EDITH ABDILUCI Dalal :1990 Visit Date:09/30/2024 Ambulatory Visit Instructions Your Diagnosis Acute URI Your Care Team Attending Physician - Marya Louis Primary Care Physician - Vargas MALHOTRA DO This Is Your Medications List brompheniramine/dextrometho rphan/PSE (Bromfed DM oral syrup) fluticasone nasal (Flonase 0.05 mg/inh [place]) Contact prescribing physician if questions or concerns buPROPion (Wellbutrin XL 300 mg/24 hours Tab-ER) cholecalciferol (Vitamin D3) esomeprazole (Nexium) loratadine (loratadine 10 mg oral capsule) sertraline (Zoloft 25 mg Tab) topiramate (topiramate 50 mg Tab) Procedures Performed Colonoscopy (11/12/2020), Esophagogastroduodenoscopy and biopsy (11/12/2020), C Section, Tonsillectomy. Discharge Vitals Temperature (Oral) 36.5 ???C Heart Rate (Peripheral) 93 Blood Pressure 126/82 Height 157 cm Height 62 in Weight 126 kg Weight 277.782 lb BMI 51.12 What to do next You Need to Schedule the Following Appointments Follow Up with Vargas MALHOTRA DO When: Where: [facility] [place] [phone] Medications What How Much When Instructions New brompheniramine/ dextromethorphan/ PSE (Bromfed DM oral syrup) 5 Milliliter By Mouth 4 times a day as needed for for cough and congestion Pickup at [facility]/pharmacy #[id number] New fluticasone nasal (Flonase 0.05 mg/ inh [place]) 1 Sprays Nasal Inhalation 2 times a day each nostril Pickup at [facility]/pharmacy #[id number] Unchanged buPROPion (Wellbutrin XL 300 mg/ 24 hours Tab-ER) 1 Tablets By Mouth Every day Contact prescribing physician if questions or concerns Unchanged cholecalciferol (Vitamin D3) Contact prescribing physician if questions or concerns Unchanged esomeprazole (Nexium) Contact prescribing physician if questions or concerns Unchanged loratadine (loratadine 10 mg oral capsule) 1 Capsules By Mouth Every day Contact prescribing physician if questions or concerns Unchanged sertraline (Zoloft 25 mg Tab) 1 Tablets By Mouth Every day Contact prescribing physician if questions or concerns Unchanged topiramate (topiramate 50 mg Tab) Contact prescribing physician if questions or concerns Pharmacy Information [facility]/pharmacy #[id number]: [address], [place] [phone] Allergies No Known Medication Allergies Problems Ongoing - Any problem that you are currently receiving treatment for. Abdominal bloating with cramps Acid reflux Acute URI Adult BMI 45.0-49.9 kg/sq m Chronic insomnia Class 3 severe obesity due to excess calories with body mass index (BMI) of 45.0 to 49.9 in adult Generalized anxiety disorder IBS (irritable bowel syndrome) Migraine Morbid obesity with BMI of 50.0-59.9, adult Non-smoker Other specified hypothyroidism Right acute otitis media RUQ pain SOB (shortness of breath) Vitamin D deficiency Historical - Any problem that you are no longer receiving treatment for. BMI 50.0-59.9, adult Patient Survey You may receive a survey via text or e-mail asking about your office visit. Please share your experience with us by completing your survey. We appreciate your feedback and thank you for choosing us for your care. Education Materials Upper Respiratory Infection, Adult An upper respiratory infection (URI) is a common viral infection of the nose, throat, and upper air passages that lead to the lungs. The most common type of URI is the common cold. URIs usually get better on their own, without medical treatment. What are the causes? A URI is caused by a virus. You may catch a virus by: ??? Breathing in droplets from an infected person's cough or sneeze. ??? Touching something that has been exposed to the virus (is contaminated) and then touching your mouth, nose, or eyes. What increases the risk? You are more likely to get a URI if: ??? You are very young or very old. ??? You have close contact with others, such as at work, school, or a health care facility. ??? You smoke. ??? You have long-term (chronic) heart or lung disease. ??? You have a weakened disease-fighting system (immune system). ??? You have nasal allergies or asthma. ??? You are experiencing a lot of stress. ??? You have poor nutrition. What are the signs or symptoms? A URI usually involves some of the following symptoms: ??? Runny or stuffy (congested) nose. ??? Cough. ??? Sneezing. ??? Sore throat. ??? Headache. ??? Fatigue. ??? Fever. ??? Loss of appetite. ??? Pain in your forehead, behind your eyes, and over your cheekbones (sinus pain). ??? Muscle aches. ??? Redness or irritation of the eyes. ??? Pressure in the ears or face. How is this diagnosed? This condition may be diagnosed based on your medical history and symptoms, and a physical exam. Your health care provider may use a swab to take a muc (more content not included)... Normal [facility] Medicine Office/Clini c Noteon 09-30-2024 Family Medicine Office/Clinic Note Family Medicine Office/Clinic Note Chief Complaint sinus infection HPI Staff 34 year old female complaints of sinus pressure across face- worse on right side, nasal drainage with green mucus, fatigue, right side ear pain, sore throat Onset: yesterday History of Present Illness NO Hx of sinus surgeries. no fever no n/v/d tried OTC- off brand Zycam- then tried name brand Zicam. nasal spray herbal supplements. vit C Review of Systems PHQ Score Initial Depression Screen Score: 0 SCORE Physical Exam Vitals & Measurements T: 36.5 ???C(Oral) HR: 93(Peripheral) BP: 126/82 SpO2: 98% HT: 62 in HT: 157 cm WT: 277.782 lb WT: 126 kg BMI: 51.12 General: alert, no acute distress, well appearing, _pleasant Skin: warm, dry, intact Head: no trauma, normocephalic Neck: Trachea midline, no adenopathy, no tenderness Eye: normal conjunctiva, sclera clear, _PERRLA ENMT: TM's clear, oral mucosa moist, no pharyngeal erythema or exudate, normal dentition Cardiovascular: regular rate and rhythm, normal peripheral perfusion, no edema Respiratory: Lungs CTA, respirations non labored Chest wall: no deformity, non tender Extremities: no deformity, no trauma Neurological: oriented x 4, LOC appropriate for age, CN II-XII intact, motor strength equal & normal bilaterally, sensation equal & normal bilaterally, speech normal Psychiatric: cooperative? , affect appropriate for age? , normal? judgement, normal? psychiatric thoughts. Assessment/Plan Reviewed with patient that physical exam and symptoms are consistent with a viral infection. Discussed antibiotics unfortunately do not treat viral illnesses, it will take time to run its course. The first 3-5 days of symptoms are typically the worst (fever, body aches, etc), with cold symptoms lasting 7-14 days. Encouraged fluids to keep secretions thin. Rest. Take Tylenol/Ibuprofen for pain/fevers as needed, may need to alternate. May use Dayquil or similar for symptoms. Recommended using cool-mist humidifier in room, nettipot, coughing/sneezing into elbow, frequent and thorough hand hygiene. Encouraged to seek re-evaluation with PCP if symptoms persist beyond 14 days without any improvement, and if any fevers above 101 develop, as could have a secondary bacterial infection requiring antibiotics. Patient and/or parent verbalized understanding of treatment plan. Work/school note provided. Will treat with FLONASE and BROMFED, may call next week if symptoms fail to resolve for possible antibiotics for sinusitis. ??? Congestion: o mucinex D (pseudoephedrine and guaifenesin) o mucinex (guaifenesin only to clear mucus) o Sudafed (pseudoephedrine) ??? Sinus pressure: o sudafed (pseudoephedrine) o mucinex D (pseudoephedrine and guaifenesin) ??? antitussives otessalon perles (Benzonatate) 100mg TID x 10day orobitussin (Dextromethorphan) (Rx Bromfed blanche 2mg/10mg/30mg per 5 mL (10ml PO q6h PRN) Max: 40 mL/day; Info: do not exceed 24 mg/day brompheniramine, 120 mg/day dextromethorphan, 240 mg/day pseudoephedrine from all sources oMucinex DM (DM-guaifenesin) ER 60-1200mg (contains guaifenesin and dextromethophan) 1. Acute URI (J06.9: Acute upper respiratory infection, unspecified) Orders: brompheniramine/dextrometho rphan/PSE, 5 mL, Oral, QID for cough and congestion, 200 mL, Refill(s) 0, [id number], 157, cm, 09/30/24 15:05:00 EDT, Height/Length Dosing, 126, kg, 09/30/24 15:05:00 EDT, Weight Dosing fluticasone nasal, 1 spray(s), Nasal, BID, 16 gram, Refill(s) 0, each nostril, [id number], 157, cm, 09/30/24 15:05:00 EDT, Height/Length Dosing, 126, kg, 09/30/24 15:05:00 EDT, Weight Dosing Total time spent preparing the chart, conducting of the encounter with the patient and family and time spent documenting, reviewing, and ordering tests was 20 minutes. Portions of this record may have been created with voice recognition artificial intelligence software, specifically [employer], [employer] and or [employer]. Substitutions may have occurred due to the inherent limitations of voice recognition and artificial intelligence software. Follow-up With When Contact Information Vargas MALHOTRA DO [address] [facility] [place] [address]- [phone] Additional Instructions: Patient Education Upper Respiratory Infection, Adult Problem List/Past Medical History Ongoing Abdominal bloating with cramps Acid reflux Acute URI Adult BMI 45.0-49.9 kg/sq m Chronic insomnia Class 3 severe obesity due to excess calories with body mass index (BMI) of 45.0 to 49.9 in adult Generalized anxiety disorder IBS (irritable bowel syndrome) Migraine Morbid obesity with BMI of 50.0-59.9, adult Non-smoker Other specified hypothyroidism Right acute otitis media RUQ pain SOB (shortness of breath) Vitamin D deficiency Historical BMI 50.0-59.9, adult Procedure/Surgical History Colonoscopy (11/12/2020), Esophagogastroduodenoscopy and biops (more content not included)... Normal [facility] Comment on above: Result Comment: Elec tronically Signed By: Marya Louis\.br\Date and Time Signed: 09/30/24 15:45 EDT US GALLBLADDER RUQon 025 US GALLBLADDER RUQ EXAMINATION: RIGHT UPPER QUADRANT ULTRASOUND 09/30/2024 7:58 am COMPARISON: CT abdomen/pelvis 04/08/2016 HISTORY: ORDERING SYSTEM PROVIDED HISTORY: RUQ pain TECHNOLOGIST PROVIDED HISTORY: This procedure can be scheduled via MyChart. What reading provider will be dictating this exam?->CRC FINDINGS: The pancreas is suboptimally visualized due to overlying bowel gas. The visualized segments appear unremarkable. The liver measures 17.9 cm in length and demonstrates increased echotexture without intrahepatic biliary dilatation. No masses are visualized. There is normal hepatopedal flow visualized within the main portal vein. The gallbladder has normal anechoic echotexture. There are no gallstones identified. The common bile duct measures 0.3cm. Positive sonographic Galeana's sign. The right kidney measures 9.8 x 6.3 x 5.1 cm. Renal cortical echotexture is normal with cortical thinning. There is no hydronephrosis. There are no stones. There are no cysts. IMPRESSION: 1. Positive sonographic Galeana's sign without evidence of cholelithiasis or biliary dilatation. 2. Right renal cortical thinning. Interpreted by: Stephen Mujica MD Signed by: Stephen Mujica MD 09/30/24 Final result Normal [facility] US Gallbladderon 09-30-2024 1. Positive sonograp hic Galeana's sign without evidence of cholelithiasis or biliary dilatation. 2. Right renal cortical thinning. [facility] EXAMINATION: RIGHT UPPER QUADRANT ULTRASOUND 09/30/2024 7:58 am COMPARISON: CT abdomen/pelvis 04/08/2016 HISTORY: ORDERING SYSTEM PROVIDED HISTORY: RU pain TECHNOLOGIST PROVIDED HISTORY: This procedure can be scheduled via MyChart. What reading provider will be dictating this exam?->CRC FINDINGS: The pancreas is suboptimally visualized due to overlying bowel gas. The visualized segments appear unremarkable. The liver measures 17.9 cm in length and demonstrates increased echotexture without intrahepatic biliary dilatation. No masses are visualized. There is normal hepatopedal flow visualized within the main portal vein. The gallbladder has normal anechoic echotexture. There are no gallstones identified. The common bile duct measures 0.3cm. Positive sonographic Galeana's sign. The right kidney measures 9.8 x 6.3 x 5.1 cm. Renal cortical echotexture is normal with cortical thinning. There is no hydronephrosis. There are no stones. There are no cysts. [facility] Stephen Mujica MD - 09/30/2024 EXAMINATION: RIGHT UPPER QUADRANT ULTRASOUND 09/30/2024 7:58 am COMPARISON: CT abdomen/pelvis 04/08/2016 HISTORY: ORDERING SYSTEM PROVIDED HISTORY: RU pain TECHNOLOGIST PROVIDED HISTORY: This procedure can be scheduled via MyChart. What reading provider will be dictating this exam?->CRC FINDINGS: The pancreas is suboptimally visualized due to overlying bowel gas. The visualized segments appear unremarkable. The liver measures 17.9 cm in length and demonstrates increased echotexture without intrahepatic biliary dilatation. No masses are visualized. There is normal hepatopedal flow visualized within the main portal vein. The gallbladder has normal anechoic echotexture. There are no gallstones identified. The common bile duct measures 0.3cm. Positive sonographic Galeana's sign. The right kidney measures 9.8 x 6.3 x 5.1 cm. Renal cortical echotexture is normal with cortical thinning. There is no hydronephrosis. There are no stones. There are no cysts. IMPRESSION: 1. Positive sonographic Galeana's sign without evidence of cholelithiasis or biliary dilatation. 2. Right renal cortical thinning. [facility] Study observation (narrative) [facility] US GallbladderOrdered By: Balwinder Mujica on 09-30-2024 [facility] Work Phone: Copper, Serumon 09-28-2024 Copper, Serum 165.9 ug/dL Critically high 80.0-155.0 [facility] Comment on above: Result Comment: INTE RPRETIVE INFORMATION: Copper, Serum or Plasma Elevated results may be due to skin or collection-related contamination, including the use of a noncertified metal-free collection/transport tube. If contamination concerns exist due to elevated levels of serum/plasma copper, confirmation with a second specimen collected in a certified metal-free tube is recommended. Serum copper may be elevated with infection, inflammation, stress, and copper supplementation. In females, elevated copper may also be caused by oral contraceptives and (concentrations may be elevated up to 3 times normal during the third trimester). This test was developed and its performance characteristics determined by [facility]. It has not been cleared or approved by the [place] Food and Drug Administration. This test was performed in a CLIA certified laboratory and is intended for clinical purposes. Performed By: [facility] [address] [place] [address] Log Washer: Talha Becerra MD, PhD CLIA Number: [id number] Zinc, Serumon 09-28-2024 Zinc, Serum 94.8 ug/dL Normal 60.0-120.0 [facility] Comment on above: Result Comment: INTE RPRETIVE INFORMATION: Zinc, Serum or Plasma Elevated results may be due to skin or collection-related contamination, including the use of a noncertified metal-free collection/transport tube. If contamination concerns exist due to elevated levels of serum/plasma zinc, confirmation with a second specimen collected in a certified metal-free tube is recommended. Circulating zinc concentrations are dependent on albumin status and are depressed with malnutrition. Zinc may also be lowered with infection, inflammation, stress, oral contraceptives, and . Zinc may be elevated with zinc supplementation or fasting. Elevated zinc concentrations may interfere with copper absorption. This test was developed and its performance characteristics determined by [facility]. It has not been cleared or approved by the [place] Food and Drug Administration. This test was performed in a CLIA certified laboratory and is intended for clinical purposes. Performed By: [facility] [address] [place] [address] Log Washer: Talha Becerra MD, PhD CLIA Number: [id number] [facility] 09-27-2024 [facility] Telephone ([email or web address]) CASE ABDI ([id number]) 1990 F Date Time Provider Department 09/27/24 CYNDI FREEDMAN [facility] During your visit today, we recorded the following information about you: Jyoti Olivarez 09/27/2024 9:14 AM Signed Case is calling Cyndi Freedman DO today asking if she needs to have the ultrasound before having her IUD removed. Patient states she was told at last office visit she needed this before removal. Please advise. Patient has been identified by name and birthdate. Duration of symptoms: N/A Person calling: self Call patient at: on cell [phone] (home) [phone] (work) [phone] (cell) Was an appointment scheduled: No Closing statement: Results or non-symptom based questions: Thank you for calling [facility], your call will be returned within the next business day. Jyoti [place] Cyndi Terrell DO 09/30/2024 8:42 PM Addendum please inform patient can schedule iud removal at any time and the repeat US can be reviewed at that time with me, removal order in [facility], please schedule Cyndi Freedman DO 09/30/2024 8:42 PM Signed Addended by: CYNDI FREEDMAN on: 09/30/2024 08:42 PM Modules accepted: Orders Constanza Browning 10/05/2024 1:10 PM Addendum Called and lvm with call back number to assist with scheduling Constanza Browning 10/12/2024 9:02 AM Signed Unable to reach patient by phone Snipshot message sent Allergies As of Date: 09/27/2024 (No Known Allergies) Date Reviewed: 02/23/2024 Reviewed by: Lorie Valentin MA - Fully Assessed Reason for Visit: Patient Question [1477] Primary Visit Diagnosis:Encounter for IUD removal [Z30.432] Order(s):REMOVE INTRAUTERINE DEVICE [[id number]] Order #: [id number] Prescriptions as of 10/12/2024 - topiramate (TOPAMAX) 100 mg tablet Take 1 tablet by mouth daily at bedtime. - esomeprazole (NEXIUM) 40 mg capsule TAKE 1 CAPSULE BY MOUTH TWO TIMES A DAY BEFORE MEALS - zavegepant (ZAVZPRET) 10 mg/actuation nasal spray One nasal spray at migraine onset. May use once per 24 hours. - semaglutide, weight loss, (WEGOVY) 0.25 mg/0.5 mL pen injector Inject 0.5 mL subcutaneously one time a week. Change to next dose after 4 weeks. - semaglutide, weight loss, (WEGOVY) 0.5 mg/0.5 mL pen injector Inject 0.5 mL subcutaneously one time a week. Patient should start on January 18, 2024. - nluxyq-yfcjvftc-myecgwy (ZENPEP) 25,000-79,000- 105,000 unit delayed release capsule Take 1 capsule by mouth three times a day with meals. - iv contrast (will be provided with radiology test) CT ABD/PEL -Inject, intravenously, once for 1 dose.No IV access, insert saline lock prior to the beginning of sedation, infusion, injection of imaging exam. Discontinue saline lock post exam. If Pt. has a central line or IVAD, may access for administration according to line specific nursing protocol. Once exam is complete flush line and de-access according to line specific nursing protocol in the CT contrast administration guidelines link. - enteric contrast (will be provided with radiology test) For CT ABD/PEL W IVCON Routine order Administer, As Directed One Time Only, via Oral, Rectal, both Oral and Rectal, Enteric Tube, Stoma or Indwelling Catheter, Enteric Contrast as designated per enteric contrast guidelines - hyoscyamine SR (LEVBID) 0.375 mg 12 hr tablet TAKE 1 TABLET BY MOUTH TWICE A DAY - multivit with calcium,iron,min (WOMEN'S MULTIPLE VITAMINS ORAL) Take by mouth once daily. - ascorbic acid/vitamin E/biotin (HAIR, SKIN, NAILS WITH BIOTIN ORAL) Take by mouth. - sertraline (ZOLOFT) 25 mg tablet Take 25 mg by mouth. - cholecalciferol, vitamin D3, (VITAMIN D3 ORAL) Take by mouth. - buPROPion XL (WELLBUTRIN XL) 300 mg 24 hr tablet Take 300 mg by mouth once daily. - MAGNESIUM ORAL Take by mouth. Facility-Administered Medications as of 10/12/2024 - acetylcholine 10% solution - [facility] compounding Problem List As Of Date 09/27/2024 Noted Resolved Acid reflux [K21.9] 06/25/2022 Diabetes mellitus (HCC) [E11.9] 01/18/2020 Hypothyroidism [E03.9] 01/12/2022 Iron deficiency [E61.1] 01/10/2022 Migraine [G43.909] 06/25/2022 Myopia of both eyes with astigmatism [H52.13, H*06/25/2022 Wears contact lenses [Z97.3] 06/25/2022 Class 3 severe obesity due to excess calories w*12/15/2022 History of sleep apnea [Z86.69] 01/26/2023 Electronic cigarette use [Z78.9] 01/26/2023 Atypical chest pain [R07.89] 01/26/2023 Chronic nonintractable headache [R51.9, G89.29] 07/06/2023 Episodic lightheadedness [R42] 07/06/2023 IIH (idiopathic intracranial hypertension) [G93*07/06/2023 Sweating abnormality [L74.9] 07/06/2023 Early satiety [R68.81] 07/06/2023 ANTHONY (obstructive sleep apnea) [G47.33] 07/29/2023 Chronic tension-type headache, intractable [G44*08/13/2023 Chronic migraine without aura, intractable, wit*07/17 (more content not included)... Normal [facility] Ceruloplasminon 09-27-2024 Ceruloplasmin 33 mg/dL Normal 16-45 [facility] Comment on above: Result Comment: Perf ormed at [facility], [address] [place], [place] [id number] . Comprehensive Metabolic Pane ritchie 09-23-2024 Albumin [Mass/Vol] 4.2 g/dL Normal 3.5-4.6 [facility] Comment on above: Performed By: #### H H #### [facility] [address] [place] [address] ALP [Catalytic activity/Vol] 110 U/L Normal 40-130 [facility] Comment on above: Performed By: #### H H #### [facility] [address] [place] [address] ALT [Catalytic activity/Vol] 20 U/L Normal 0-33 [facility] Comment on above: Performed By: #### H H #### [facility] [address] [place] [address] Anion gap [Moles/Vol] 8 mmol/L Low 9-15 [facility] Comment on above: Performed By: #### H H #### [facility] [address] [place] [address] AST [Catalytic activity/Vol] 19 U/L Normal 0-35 [facility] Comment on above: Performed By: #### H H #### [facility] [address] [place] [address] Bilirubin [Mass/Vol] 0.7 mg/dL Normal 0.2-0.7 [facility] Comment on above: Performed By: #### H H #### [facility] [address] [place] [address] Calcium [Mass/Vol] 9.3 mg/dL Normal 8.5-9.9 [facility] Comment on above: Performed By: #### H H #### [facility] [address] [place] [address] Chloride [Moles/Vol] 100 mmol/L Normal 95-107 [facility] Comment on above: Performed By: #### H H #### [facility] [address] [place] [address] CO2 [Moles/Vol] 26 mmol/L Normal 20-31 [facility] Comment on above: Performed By: #### H H #### [facility] [address] [place] [address] Creatinine [Mass/Vol] 0.91 mg/dL Critically high 0.50-0.90 [facility] Comment on above: Performed By: #### H H #### [facility] [address] [place] [address] GFR 84.9 Normal >60 [facility] Comment on above: Result Comment: John atric calculator link https://www.kidney.org/professionals/kdoqi/gfr_calculatorped Effective Feb 17, 2022 These results are not intended for use in patients <18 years of age. eGFR results are calculated without a race factor using the 2020 CKD-EPI equation. Careful clinical correlation is recommended, particularly when comparing to results calculated using previous equations. The CKD-EPI equation is less accurate in patients with extremes of muscle mass, extra-renal metabolism of creatinine, excessive creatinine ingestion, or following therapy that affects renal tubular secretion. Performed By: #### H H #### [facility] [address] [place] [address] Globulin (S) [Mass/Vol] 2.8 g/dL Normal 2.3-3.5 [facility] Comment on above: Performed By: #### H H #### [facility] [address] [place] [address] Glucose [Mass/Vol] 92 mg/dL Normal 70-99 [facility] Comment on above: Performed By: #### H H #### [facility] [address] [place] [address] Potassium [Moles/Vol] 3.9 mmol/L Normal 3.4-4.9 [facility] Comment on above: Performed By: #### H H #### [facility] [address] [place] [address] Protein [Mass/Vol] 7.0 g/dL Normal 6.3-8.0 [facility] Comment on above: Performed By: #### H H #### [facility] [address] [place] [address] Sodium [Moles/Vol] 134 mmol/L Low 135-144 [facility] Comment on above: Performed By: #### H H #### [facility] [address] [place] [address] Urea nitrogen [Mass/Vol] 16 mg/dL Normal 6-20 [facility] Comment on above: Performed By: #### H H #### [facility] [address] [place] [address] Comprehensive metabolic 2000 panelon 09-23-2024 Albumin [Mass/Vol] 4.2 g/dL 3.5 - 4.6 g/dL [facility] ALP [Catalytic activity/Vol] 110 U/L 40 - 130 U/L [facility] ALT [Catalytic activity/Vol] 20 U/L 0 - 33 U/L [facility] Anion gap [Moles/Vol] 8 mmol/L Low [facility] AST [Catalytic activity/Vol] 19 U/L 0 - 35 U/L [facility] Bilirubin [Mass/Vol] 0.7 mg/dL 0.2 - 0 .7 mg/dL [facility] Calcium [Mass/Vol] 9.3 mg/dL 8.5 - 9.9 mg/dL [facility] Chloride [Moles/Vol] 100 mmol/L [facility] CO2 [Moles/Vol] 26 mmol/L [facility] Creatinine [Mass/Vol] 0.91 mg/dL High 0.50 - 0.90 mg/dL [facility] GFR/1.73 sq M.predicted among non-blacks MDRD (S/P/Bld) [Vol rate/Area] 84.9 mL/min/{1.73_m2} 60 - PINF [facility] Comment on above: Pediatric calculator link https://www.kidney.org/professionals/kdoqi/gfr_calculatorped Effective Feb 17, 2022 These results are not intended for use in patients <18 years of age. eGFR results are calculated without a race factor using the 2020 CKD-EPI equation. Careful clinical correlation is recommended, particularly when comparing to results calculated using previous equations. The CKD-EPI equation is less accurate in patients with extremes of muscle mass, extra-renal metabolism of creatinine, excessive creatinine ingestion, or following therapy that affects renal tubular secretion. Globulin (S) [Mass/Vol] 2.8 g/dL 2.3 - 3.5 g/dL [facility] Glucose [Mass/Vol] 92 mg/dL 70 - 99 mg/dL [facility] Interpretation and review of laboratory results Abnormal [facility] Potassium [Moles/Vol] 3.9 mmol/L [facility] Protein [Mass/Vol] 7 g/dL 6.3 - 8.0 g/dL [facility] Sodium [Moles/Vol] 134 mmol/L Low [facility] Urea nitrogen [Mass/Vol] 16 mg/dL 6 - 20 mg/dL [facility] Ferritinon 09-23-2024 Ferritin [Mass/Vol] 61 ng/mL Normal 15-150 [facility] Comment on above: FERRITIN Reference Ranges: Adult Males 20 - 60 years: 30 - 400 ng/mL Adult females 17 - 60 years: 13 - 150 ng/mL Adults greater than 60 years: no established reference range Pediatrics: no established reference range Performed at [facility], [address] [place] [address] . Result Comment: FERRITIN Reference Ranges: Adult Males 20 - 60 years: 30 - 400 ng/mL Adult females 17 - 60 years: 13 - 150 ng/mL Adults greater than 60 years: no established reference range Pediatrics: no established reference range Performed at [address] [address] . Insulinon 09-23-2024 Insulin 9.8 mU/L Normal [facility] Comment on above: Performed By: #### H H #### [facility] [address] [place] [address] Reference Range SEE BELOW [facility] Comment on above: Result Comment: Fast in.6-24.9 30 min: 20-112 60 min: 29-88 90 min: -84 120 min: 22-79 Performed at [address] [address] . Performed By: #### H H #### [facility] [address] [facility] [address] Collection Info Normal [facility] Comment on above: Performed By: #### H H #### [facility] [address] [facility] [address] Insulin, Totalon 09-23-2024 Insulin Comment [facility] Insulin Qn 9.8 u[IU]/mL [facility] Insulin Reference Range: SEE BELOW [facility] Comment on above: Fastin.6-24.9 30 min: 20-112 60 min: 29-88 90 min: -84 120 min: 22-79 Performed at [address] [address] . [facility] Iron Binding Capon 5 % Fe Saturation 70 % Critically high 20-55 [facility] Iron [Mass/Vol] 176 ug/dL Critically high 37-145 [facility] Total Fe Binding Cap 250 ug/dL Normal 250-450 [facility] Unbound Fe Bind Cap 74 ug/dL Low 112-347 [facility] Comment on above: Result Comment: Perf ormed at [facility], [address] [place] [address] . Iron and TIBCon 09-23-2024 Interpretation and review of laboratory results Abnormal [facility] Iron % Saturation 70 % High 20 - 55 % [facility] TIBC 250 ug/dL 250 - 450 ug/dL [facility] UIBC 74 ug/dL Low 112 - 347 ug/dL [facility] Comment on above: Performed at [facility], [address] [place] [address] . No Panel Informationon 09-23 [facility] T3, Freeon 09-23-2024 Free T3 [Mass/Vol] 3.40 pg/mL Normal 2.00-4.40 [facility] Comment on above: Performed at [facility], [address] [place] [address] . Result Comment: Perf ormed at [facility], [address] [place] [address] . T4, Freeon 09-23-2024 Free T4 [Mass/Vol] 1.04 ng/dL 0.84 - 1.68 ng/dL [facility] TSHon 09-23-2024 TSH [Mass/Vol] 2.83 [facility] TSH w/out Reflexon TSH w/out Reflex 2.830 uIU/mL Normal 0.440-3.86 [facility] Comment on above: Performed By: #### H H #### [facility] [address] [place] [address] Testosterone, Free and Total on 09-23-2024 Sex Hormone Binding Globulin 39 nmol/L Normal 25-122 [facility] Testosterone [Mass/Vol] 16 ng/dL Normal 8-48 [facility] Testosterone, Free 2.6 pg/mL Normal 1.3-9.2 [facility] Comment on above: Result Comment: The concentration of free testosterone is derived from a mathematical expression based on the constant for the binding of testosterone to albumin and/or sex hormone binding globulin. Performed at [facility], [address] [place] [address] . Testosterone, free, totalon 09-23-2024 Sex hormone binding globulin [Moles/Vol] 39 nmol/L 25 - 122 nmol/L [facility] Testosterone Free [Mass/Vol] 2.6 pg/mL 1.3 - 9.2 pg/mL [facility] Comment on above: The concentration of free testosterone is derived from a mathematical expression based on the constant for the binding of testosterone to albumin and/or sex hormone binding globulin. Performed at [facility], [address] [place] [id number] . Thyroxine Freeon 09-23-2024 Thyroxine Free 1.04 ng/dL Normal 0.84-1.68 [facility] Comment on above: Performed By: #### H H #### [facility] [address] [address] CNPVeronika 06-29-2024 [facility] Telephone (NHMNS2) CASE ABDI ([id number]) 1990 F Date Time Provider Department 06/29/24 OREN MILLS [facility] During your visit today, we recorded the following information about you: Bradly Hernandez RN 06/29/2024 11:37 AM Signed Botox referral sent to pharmacy Vadim KIM, RN RN Clinical [facility] Allergies As of Date: 06/29/2024 (No Known Allergies) Date Reviewed: 02/23/2024 Reviewed by: Lorie Valentin MA - Fully Assessed Reason for Visit: Referral Request [124] Prescriptions as of 06/29/2024 - esomeprazole (NEXIUM) 40 mg capsule TAKE 1 CAPSULE BY MOUTH TWO TIMES A DAY BEFORE MEALS - zavegepant (ZAVZPRET) 10 mg/actuation nasal spray One nasal spray at migraine onset. May use once per 24 hours. - semaglutide, weight loss, (WEGOVY) 0.25 mg/0.5 mL pen injector Inject 0.5 mL subcutaneously one time a week. Change to next dose after 4 weeks. - semaglutide, weight loss, (WEGOVY) 0.5 mg/0.5 mL pen injector Inject 0.5 mL subcutaneously one time a week. Patient should start on January 18, 2024. - jdosdy-rhsgecih-wulnivv (ZENPEP) 25,000-79,000- 105,000 unit delayed release capsule Take 1 capsule by mouth three times a day with meals. - iv contrast (will be provided with radiology test) CT ABD/PEL -Inject, intravenously, once for 1 dose.No IV access, insert saline lock prior to the beginning of sedation, infusion, injection of imaging exam. Discontinue saline lock post exam. If Pt. has a central line or IVAD, may access for administration according to line specific nursing protocol. Once exam is complete flush line and de-access according to line specific nursing protocol in the CT contrast administration guidelines link. - enteric contrast (will be provided with radiology test) For CT ABD/PEL W IVCON Routine order Administer, As Directed One Time Only, via Oral, Rectal, both Oral and Rectal, Enteric Tube, Stoma or Indwelling Catheter, Enteric Contrast as designated per enteric contrast guidelines - hyoscyamine SR (LEVBID) 0.375 mg 12 hr tablet TAKE 1 TABLET BY MOUTH TWICE A DAY - topiramate (TOPAMAX) 100 mg tablet Take 1 tablet by mouth daily at bedtime. - multivit with calcium,iron,min (WOMEN'S MULTIPLE VITAMINS ORAL) Take by mouth once daily. - ascorbic acid/vitamin E/biotin (HAIR, SKIN, NAILS WITH BIOTIN ORAL) Take by mouth. - sertraline (ZOLOFT) 25 mg tablet Take 25 mg by mouth. - cholecalciferol, vitamin D3, (VITAMIN D3 ORAL) Take by mouth. - buPROPion XL (WELLBUTRIN XL) 300 mg 24 hr tablet Take 300 mg by mouth once daily. - MAGNESIUM ORAL Take by mouth. Facility-Administered Medications as of 06/29/2024 - acetylcholine 10% solution - [facility] compounding Problem List As Of Date 06/29/2024 Noted Resolved Acid reflux [K21.9] 06/25/2022 Diabetes mellitus (HCC) [E11.9] 01/18/2020 Hypothyroidism [E03.9] 01/12/2022 Iron deficiency [E61.1] 01/10/2022 Migraine [G43.909] 06/25/2022 Myopia of both eyes with astigmatism [H52.13, H*06/25/2022 Wears contact lenses [Z97.3] 06/25/2022 Class 3 severe obesity due to excess calories w*12/15/2022 History of sleep apnea [Z86.69] 01/26/2023 Electronic cigarette use [Z78.9] 01/26/2023 Atypical chest pain [R07.89] 01/26/2023 Chronic nonintractable headache [R51.9, G89.29] 07/06/2023 Episodic lightheadedness [R42] 07/06/2023 IIH (idiopathic intracranial hypertension) [G93*07/06/2023 Sweating abnormality [L74.9] 07/06/2023 Early satiety [R68.81] 07/06/2023 ANTHONY (obstructive sleep apnea) [G47.33] 07/29/2023 Chronic tension-type headache, intractable [G44*08/13/2023 Chronic migraine without aura, intractable, wit*08/13/2023 Bilateral occipital neuralgia [M54.81] 08/13/2023 Cervicalgia [M54.2] 08/13/2023 Chronic daily headache [R51.9] 08/13/2023 Pulsatile tinnitus, right ear [H93.A1] 08/13/2023 Nummular headache [G44.89] 06/02/2024 Encounter Status:Closed by BRADLY HERNANDEZ on 06/29/24 Normal [facility] C-Reactive Proteinon 025 CRP [Mass/Vol] 4.2 mg/L Normal 0.0-5.0 [facility] Comment on above: Performed By: #### C RP #### [facility] [address] [place] [id number] Comprehensive Metabolic Pane ritchie 06-22-2024 Albumin [Mass/Vol] 4.5 g/dL Normal 3.5-4.6 [facility] Comment on above: Performed By: #### C MP #### [facility] [address] [place] [address] ALP [Catalytic activity/Vol] 93 U/L Normal 40-130 [facility] Comment on above: Performed By: #### C MP #### [facility] [address] [place] [address] ALT [Catalytic activity/Vol] U/L Normal 0-33 [facility] Comment on above: Performed By: #### C MP #### [facility] [address] [place] [address] Anion gap [Moles/Vol] 11 mmol/L Normal 9-15 [facility] Comment on above: Performed By: #### C MP #### [facility] [address] [place] [address] AST [Catalytic activity/Vol] 11 U/L Normal 0-35 [facility] Comment on above: Performed By: #### C MP #### [facility] [address] [place] [address] Bilirubin [Mass/Vol] 0.5 mg/dL Normal 0.2-0.7 [facility] Comment on above: Performed By: #### C MP #### [facility] [address] [place] [address] Calcium [Mass/Vol] 9.3 mg/dL Normal 8.5-9.9 [facility] Comment on above: Performed By: #### C MP #### [facility] [address] [place] [address] Chloride [Moles/Vol] 104 mmol/L Normal 95-107 [facility] Comment on above: Performed By: #### C MP #### [facility] [address] [place] [address] CO2 [Moles/Vol] 24 mmol/L Normal 20-31 [facility] Comment on above: Performed By: #### C MP #### [facility] [address] [place] [address] Creatinine [Mass/Vol] 0.90 mg/dL Normal 0.50-0.90 [facility] Comment on above: Performed By: #### C MP #### [facility] [address] [place] [address] GFR 86.1 Normal >60 [facility] Comment on above: Result Comment: John atric calculator link https://www.kidney.org/professionals/kdoqi/gfr_calculatorped Effective Feb 17, 2022 These results are not intended for use in patients <18 years of age. eGFR results are calculated without a race factor using the 2020 CKD-EPI equation. Careful clinical correlation is recommended, particularly when comparing to results calculated using previous equations. The CKD-EPI equation is less accurate in patients with extremes of muscle mass, extra-renal metabolism of creatinine, excessive creatinine ingestion, or following therapy that affects renal tubular secretion. Performed By: #### C MP #### [facility] [address] [place] [address] Globulin (S) [Mass/Vol] 2.5 g/dL Normal 2.3-3.5 [facility] Comment on above: Performed By: #### C MP #### [facility] [address] [place] [address] Glucose [Mass/Vol] 76 mg/dL Normal 70-99 [facility] Comment on above: Performed By: #### C MP #### [facility] [address] [place] [address] Potassium [Moles/Vol] 4.1 mmol/L Normal 3.4-4.9 [facility] Comment on above: Performed By: #### C MP #### [facility] [address] [place] [address] Protein [Mass/Vol] 7.0 g/dL Normal 6.3-8.0 [facility] Comment on above: Performed By: #### C MP #### [facility] [address] [place] [address] Sodium [Moles/Vol] 139 mmol/L Normal 135-144 [facility] Comment on above: Performed By: #### C MP #### [facility] [address] [place] [address] Urea nitrogen [Mass/Vol] 10 mg/dL Normal 6-20 [facility] Comment on above: Performed By: #### C MP #### [facility] [address] [place] [address] Hemoglobin A1Con 06-22-2024 Glucose [Mass/Vol] 71 mg/dL Normal [facility] Comment on above: The ADA and AACC rec ommend providing the estimated average glucose result to permit better patient understanding of their HBA1c result. Performed at [facility], [address] [place] [id number] . Result Comment: The ADA and AACC recommend providing the estimated average glucose result to permit better patient understanding of their HBA1c result. Performed at [facility], [address] [place] [address] . HbA1c (Bld) [Mass fraction] 4.1 % Normal 4.0-6.0 [facility] Lipaseon 06-22-2024 Lipase [Catalytic activity/Vol] 52 U/L Normal 12-95 [facility] Comment on above: Performed By: #### L IPAS #### [facility] [address] [place] [address] Urinalysis with Reflex to Cu ltureon 06-21-2024 Glucose Test strip (U) [Mass/Vol] Negative Negative mg/dL [facility] Interpretation and review of laboratory results Abnormal [facility] Ketones (U) [Mass/Vol] TRACE Abnormal Negat jillian mg/dL [facility] Protein (U) [Mass/Vol] Negative Negat jillian mg/dL [facility] Urine Reflex to Culture Not Indicated [facility] Urobilinogen Qn (U) 1.0 NINF [facility] S ecours [facility] Urinalysis, reflex to cultur dayne 06-21-2024 Bilirubin Ql (U) Negative Normal Negative [facility] Comment on above: Performed By: #### H H #### [facility] [address] [place] [address] Clarity (U) Clear Normal Clear [facility] Comment on above: Performed By: #### H H #### [facility] [address] [place] [address] Color (U) Yellow Normal Straw/Traill [facility] Comment on above: Performed By: #### H H #### [facility] [address] [place] [address] Glucose Ql (U) Negative Normal Negative [facility] Comment on above: Performed By: #### H H #### [facility] [address] [place] [address] Hemoglobin Ql (U) Negative Normal Negative [facility] Comment on above: Performed By: #### H H #### [facility] [address] [place] [address] Ketones Ql (U) TRACE Abnormal Negative [facility] Comment on above: Performed By: #### H H #### [facility] [address] [place] [address] Leukocyte esterase Test strip Ql (U) Negative Normal Negative [facility] Comment on above: Performed By: #### H H #### [facility] [address] [place] [address] Nitrite Ql (U) Negative Normal Negative [facility] Comment on above: Performed By: #### H H #### [facility] [address] [place] [address] pH (U) 5.5 [pH] Normal 5.0-9.0 [facility] Comment on above: Performed By: #### H H #### [facility] [address] [place] [address] Protein Ql (U) Negative Normal Negative [facility] Comment on above: Performed By: #### H H #### [facility] [address] [place] [address] Specific gravity (U) [Rel density] 1.022 Normal 1.005-1.03 [facility] Comment on above: Performed By: #### H H #### [facility] [address] [place] [address] Urine Reflexed to Culture Not Indicated Normal [facility] Comment on above: Performed By: #### H H #### [facility] [address] [place] [address] Urobilinogen Qn (U) 1.0 {Yecenia'U}/dL Normal < 2.0 [facility] Comment on above: Performed By: #### H H #### [facility] [address] [place] [address] Microscopic Urinalysison Bacteria LM Ql (Urine sed) MODERATE Abnormal Negative /HPF [facility] Epithelial cells LM.HPF (Urine sed) [#/Area] 3-5 /HPF [facility] Interpretation and review of laboratory results Abnormal [facility] RBC LM.HPF (Urine sed) [#/Area] 3-5 Abnormal [facility] WBC LM.HPF (Urine sed) [#/Area] 3-5 [facility] No Panel Informationon 04-27 [facility] Urinalysis with Reflex to Cu ltureon 04-27-2024 Bilirubin Ql (U) Negative Negative [facility] Clarity (U) SLCLOUDY Clear [facility] Color (U) Yellow Straw/Traill ow [facility] Glucose Test strip (U) [Mass/Vol] Negative Negative mg/dL [facility] Hemoglobin Ql (U) Moderate Negative [facility] Ketones (U) [Mass/Vol] Negative Negat jillian mg/dL [facility] Leukocyte esterase Test strip Ql (U) Negative Negative [facility] Nitrite Ql (U) Positive Negative [place] [facility] pH (U) 6.0 [pH] 5.0 - 9.0 [facility] Protein (U) [Mass/Vol] Negative Negat jillian mg/dL [facility] Specific gravity (U) [Rel density] 1.005 - 1.030 [facility] Urine Reflex to Culture Not Indicated [facility] Urobilinogen Qn (U) 0.2 NINF [place]ian S [facility] Urinalysis, reflex to cultur dayne 04-27-2024 Urine Reflexed to Culture Not Indicated Normal [facility] Comment on above: Performed By: #### H H #### [facility] [address] [place] [address] Bilirubin Ql (U) Negative Normal Negative [facility] Comment on above: Performed By: #### H H #### [facility] [address] [place] [address] Clarity (U) SLCLOUDY Normal Clear [facility] Comment on above: Performed By: #### H H #### [facility] [address] [place] [address] Color (U) Yellow Normal Straw/Traill [facility] Comment on above: Performed By: #### H H #### [facility] [address] [place] [address] Glucose Ql (U) Negative Normal Negative [facility] Comment on above: Performed By: #### H H #### [facility] [address] [place] [address] Hemoglobin Ql (U) Moderate Normal Negative [facility] Comment on above: Performed By: #### H H #### [facility] [address] [place] [address] Ketones Ql (U) Negative Normal Negative [facility] Comment on above: Performed By: #### H H #### [facility] [address] [place] [address] Leukocyte esterase Test strip Ql (U) Negative Normal Negative [facility] Comment on above: Performed By: #### H H #### [facility] [address] [place] [address] Nitrite Ql (U) Positive Normal Negative [facility] Comment on above: Performed By: #### H H #### [facility] [address] [place] [address] pH (U) 6.0 [pH] Normal 5.0-9.0 [facility] Comment on above: Performed By: #### H H #### [facility] [address] [place] [address] Protein Ql (U) Negative Normal Negative [facility] Comment on above: Performed By: #### H H #### [facility] [address] [place] [address] Specific gravity (U) [Rel density] <=1.005 Normal 1.005-1.03 [facility] Comment on above: Performed By: #### H H #### [facility] [address] [place] [address] Urobilinogen Qn (U) 0.2 {Yecenia'U}/dL Normal < 2.0 [facility] Comment on above: Performed By: #### H H #### [facility] [address] [place] [address] Urine Microscopicon 04-27-20 24 Epithelial cells LM Ql (Urine sed) 3-5 Normal [facility] Comment on above: Performed By: #### H H #### [facility] [address] [place] [address] Urine Bacteria MODERATE Abnormal Negative [facility] Comment on above: Performed By: #### H H #### [facility] [address] [place] [address] Urine RBC 3-5 Abnormal 0-2 [facility] Comment on above: Performed By: #### H H #### [facility] [address] [place] [address] Urine WBC 3-5 Normal 0-5 [facility] Comment on above: Performed By: #### H H #### [facility] [address] [place] [address] Urinalysis with Reflex to Cu ltureon 04-26-2024 Glucose Test strip (U) [Mass/Vol] Negative Negative mg/dL [facility] Ketones (U) [Mass/Vol] Negative Negat jillian mg/dL [facility] Protein (U) [Mass/Vol] Negative Negat jillian mg/dL [facility] Urine Reflex to Culture Not Indicated [facility] Urobilinogen Qn (U) 0.2 NINF Bon [facility] Urinalysis, reflex to cultur dayne 04-26-2024 Bilirubin Ql (U) Negative Normal Negative [facility] Comment on above: Performed By: #### H H #### [facility] [address] [place] [address] Clarity (U) Clear Normal Clear [facility] Comment on above: Performed By: #### H H #### [facility] [address] [place] [address] Color (U) Yellow Normal Straw/Traill [facility] Comment on above: Performed By: #### H H #### [facility] [address] [place] [address] Glucose Ql (U) Negative Normal Negative [facility] Comment on above: Performed By: #### H H #### [facility] [address] [place] [address] Hemoglobin Ql (U) Negative Normal Negative [facility] ours [facility] Comment on above: Performed By: #### H H #### [facility] [address] [place] [address] Ketones Ql (U) Negative Normal Negative [facility] Comment on above: Performed By: #### H H #### [facility] [address] [place] [address] Leukocyte esterase Test strip Ql (U) Negative Normal Negative [facility] Comment on above: Performed By: #### H H #### [facility] [address] [place] [address] Nitrite Ql (U) Negative Normal Negative [facility] Comment on above: Performed By: #### H H #### [facility] [address] [place] [address] pH (U) 5.5 [pH] Normal 5.0-9.0 [facility] Comment on above: Performed By: #### H H #### [facility] [address] [place] [address] Protein Ql (U) Negative Normal Negative [facility] Comment on above: Performed By: #### H H #### [facility] [address] [place] [address] Specific gravity (U) [Rel density] 1.014 Normal 1.005-1.03 [facility] Comment on above: Performed By: #### H H #### [facility] [address] [place] [address] Urine Reflexed to Culture Not Indicated Normal [facility] Comment on above: Performed By: #### H H #### [facility] [address] [place] [address] Urobilinogen Qn (U) 0.2 {Yecenia'U}/dL Normal < 2.0 [facility] Comment on above: Performed By: #### H H #### [facility] [address] [place] [address] Danny 04-18-2024 KELSIE Telephone (JIMMYLeanna) CASE ABDI ([id number]) 1990 F Date Time Provider Department 04/18/24 NEUROLOGY PROVIDER JIMMYLeanna During your visit today, we recorded the following information about you: Kelsey Em 04/18/2024 12:27 PM Signed Name of Caller AND Phone Number: Case What diagnosis do you need seen for: Narrowing of mane channel 2. Is there a specific provider referring you to our department [List provider's last name + first name]: Oren Mills 3. Have you been recommended for surgery/procedure for this diagnosis: Y/N N 4. In the past year, have you had any CT's/MR's/US's imaging of your Brain/Head/Neck: Y/N Y 4a. Do you have your imaging on a disc? Y/N N 4b. What is the name of the hospital/facility where you had imaging done? [facility] 4c. What is the City/State/Phone Number of [facility]? [place], [place] Thank you for the information, your chart will be forwarded to our Intake team. A coordinator will reach out to you within the next 24 hours to go through our triage questionnaire with you. If you don't receive a call from them within the next 2 business days, please call [phone] to follow up. Lenora Barksdale 04/19/2024 5:15 PM Addendum ENDOVASCULAR INTAKE Patient name: Case Abdi What diagnosis are you looking to be seen for within our center? (ex: aneurysm, angioma, arteriovenous malformation, brain bleed or brain hemorrhage, cavernous malformation, carotid stenosis, fistula, [place], Vein of Narendra, IIH or pseudotumor, etc.) Narrowing of mane channel Is there a specific provider who is requesting you see our center? (referring provider) Oren Mills; referral via 6[employer] on 03.14.24 Has your referring provider recommended a specific provider in our department? Dr. Lala Is this a second opinion? Have you been recommended for surgery or procedure for this condition? -- If yes, have you scheduled this procedure at another facility? -- If yes, when is the procedure scheduled? -- Where have you had any imaging for this diagnosis in the past year? These include images such as ultrasounds, MRIs, CTs, or angiograms of the head, brain, neck, carotids, or spine. CCLenora Holloway 04/19/2024 5:18 PM Addendum Patient not appropriate for our department specialty at this time, per chart review, patient is to see Shell Ro PA-C first who will then refer patient back to us if necessary as we're more than happy to see her~ Allergies As of Date: 04/18/2024 (No Known Allergies) Date Reviewed: 02/23/2024 Reviewed by: Lorie Valentin MA - Fully Assessed Reason for Visit: Future Appointment [256] Cmt: New Patient [place] Any Prescriptions as of 04/19/2024 - topiramate (TOPAMAX) 50 mg tablet Take 1.5 tablets by mouth daily at bedtime. - semaglutide, weight loss, (WEGOVY) 0.25 mg/0.5 mL pen injector Inject 0.5 mL subcutaneously one time a week. Change to next dose after 4 weeks. - semaglutide, weight loss, (WEGOVY) 0.5 mg/0.5 mL pen injector Inject 0.5 mL subcutaneously one time a week. Patient should start on January 18, 2024. - esomeprazole (NEXIUM) 40 mg capsule TAKE 1 CAPSULE BY MOUTH TWO TIMES A DAY BEFORE MEALS - fzjkqg-lhygjpni-jqsbnkr (ZENPEP) 25,000-79,000- 105,000 unit delayed release capsule Take 1 capsule by mouth three times a day with meals. - iv contrast (will be provided with radiology test) CT ABD/PEL -Inject, intravenously, once for 1 dose.No IV access, insert saline lock prior to the beginning of sedation, infusion, injection of imaging exam. Discontinue saline lock post exam. If Pt. has a central line or IVAD, may access for administration according to line specific nursing protocol. Once exam is complete flush line and de-access according to line specific nursing protocol in the CT contrast administration guidelines link. - enteric contrast (will be provided with radiology test) For CT ABD/PEL W IVCON Routine order Administer, As Directed One Time Only, via Oral, Rectal, both Oral and Rectal, Enteric Tube, Stoma or Indwelling Catheter, Enteric Contrast as designated per enteric contrast guidelines - hyoscyamine SR (LEVBID) 0.375 mg 12 hr tablet TAKE 1 TABLET BY MOUTH TWICE A DAY - topiramate (TOPAMAX) 100 mg tablet Take 1 tablet by mouth daily at bedtime. - multivit with calcium,iron,min (WOMEN'S MULTIPLE VITAMINS ORAL) Take by mouth once daily. - ascorbic acid/vitamin E/biotin (HAIR, SKIN, NAILS WITH BIOTIN ORAL) Take by mouth. - sertraline (ZOLOFT) 25 mg tablet Take 25 mg by mouth. - cholecalciferol, vitamin D3, (VITAMIN D3 ORAL) Take by mouth. - buPROPion XL (WELLBUTRIN XL) 300 mg 24 hr tablet Take 300 mg by mouth once daily. - MAGNESIUM ORAL Take by mouth. Facility-Administered Medications as of 04/19/2024 - acetylcholine 10% solution - [facility] compounding Problem List As Of (more content not included)... 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 Data Entry Clerk: KRISTEN Transcribe Date/Time: Mar 02 2024 7:36P Dictated by : MILDRED CANALES MD This examination was interpreted and the report reviewed and electronically signed by: MILDRED CANALES MD on Mar 02 2024 7:39PM [facility] DIVISION OF RADIOLOGY * * *Final Report* * * DATE OF EXAM: Mar 02 2024 5:14PM [facility] [id number] - MRV BRAIN WO IVCON / PROCEDURE REASON: multiple diagnoses * * * * Physician Interpretation * * * * EXAMINATION: MRV BRAIN WO IVCON CLINICAL HISTORY: Idiopathic intracranial hypertension TECHNIQUE: Routine noncontrast MRV brain protocol. COMPARISON: External facility CT of the head 04/22/2021 RESULT: The dural venous sinuses are patent with no evidence of thrombosis. 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 The deep venous system is also patent. DIVISION OF RADIOLOGY Provider, Ciera Randy [facility] - 03/02/2024 * * *Final Report* * * DATE OF EXAM: Mar 02 2024 5:14PM [facility] 0335 - MRV BRAIN WO IVCON / PROCEDURE REASON: multiple diagnoses * * * * Physician Interpretation * * * * EXAMINATION: MRV BRAIN WO IVCON CLINICAL HISTORY: Idiopathic intracranial hypertension TECHNIQUE: Routine noncontrast MRV brain protocol. COMPARISON: External facility CT of the head 04/22/2021 RESULT: The dural venous sinuses are patent with no evidence of thrombosis. 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 The deep venous system is also patent. 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 Data Entry Clerk: [facility] Transcribe Date/Time: Mar 02 2024 7:36P Dictated by : MILDRED CANALES MD This examination was interpreted and the report reviewed and electronically signed by: MILDRED CANALES MD on Mar 02 2024 7:39PM EST [facility] Radiology Study observation (narrative) [facility] MRA Head veins WO contrastOr dered By: [facility] Provider on 03-02-2024 [facility] MRV BRAIN WO IVCONon 024 MRV BRAIN WO IVCON * * *Final Report* * * DATE OF EXAM: Mar 02 2024 5:14PM [facility] 0335 - MRV BRAIN WO IVCON / PROCEDURE REASON: multiple diagnoses * * * * Physician Interpretation * * * * EXAMINATION: MRV BRAIN WO IVCON CLINICAL HISTORY: Idiopathic intracranial hypertension TECHNIQUE: Routine noncontrast MRV brain protocol. COMPARISON: External facility CT of the head 04/22/2021 RESULT: The dural venous sinuses are patent with no evidence of thrombosis. 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 The deep venous system is also patent. 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 Data Entry Clerk: [facility] Transcribe Date/Time: Mar 02 2024 7:36P Dictated by : MILDRED CANALES MD This examination was interpreted and the report reviewed and electronically signed by: MILDRED CANALES MD on Mar 02 2024 7:39PM EST [id number] Normal [facility] Basic Metabolic Panelon 02-15 Anion gap [Moles/Vol] 12 mmol/L Normal 9-15 [facility] Comment on above: Performed By: #### B MP #### [facility] [address] [place] [address] Calcium [Mass/Vol] 9.5 mg/dL Normal 8.5-9.9 [facility] Comment on above: Performed By: #### B MP #### [facility] [address] [place] [address] Chloride [Moles/Vol] 104 mmol/L Normal 95-107 [facility] Comment on above: Performed By: #### B MP #### [facility] [address] [place] [address] CO2 [Moles/Vol] 25 mmol/L Normal 20-31 [facility] Comment on above: Performed By: #### B MP #### [facility] [address] [place] [address] Creatinine [Mass/Vol] 0.97 mg/dL Critically high 0.50-0.90 [facility] Comment on above: Performed By: #### B MP #### [facility] [address] [place] [address] GFR 78.9 Normal >60 [facility] Comment on above: Result Comment: John atric calculator link https://www.kidney.org/professionals/kdoqi/gfr_calculatorped Effective Feb 17, 2022 These results are not intended for use in patients <18 years of age. eGFR results are calculated without a race factor using the 2020 CKD-EPI equation. Careful clinical correlation is recommended, particularly when comparing to results calculated using previous equations. The CKD-EPI equation is less accurate in patients with extremes of muscle mass, extra-renal metabolism of creatinine, excessive creatinine ingestion, or following therapy that affects renal tubular secretion. Performed By: #### B MP #### [facility] [address] [place] [address] Glucose [Mass/Vol] 78 mg/dL Normal 70-99 [facility] Comment on above: Performed By: #### B MP #### [facility] [address] [place] [address] Potassium [Moles/Vol] 4.2 mmol/L Normal 3.4-4.9 [facility] Comment on above: Performed By: #### B MP #### [facility] [address] [place] [address] Sodium [Moles/Vol] 141 mmol/L Normal 135-144 [facility] Comment on above: Performed By: #### B MP #### [facility] [address] [place] [address] Urea nitrogen [Mass/Vol] 13 mg/dL Normal 6-20 [facility] Comment on above: Performed By: #### B MP #### [facility] [address] [place] [address] CBC With Platelet No Differe ntialon 03-01-2024 Erythrocyte distribution width (RBC) [Ratio] 12.0 % Normal 11.5-14.5 [facility] Comment on above: Performed By: #### C BCND #### [facility] [address] [place] [address] Hematocrit (Bld) [Volume fraction] 44.0 % Normal 37.0-47.0 [facility] Comment on above: Performed By: #### C BCND #### [facility] [address] [place] [address] Hemoglobin (Bld) [Mass/Vol] 15.0 g/dL Normal 12.0-16.0 [facility] Comment on above: Performed By: #### C BCND #### [facility] [address] [place] [address] MCH (RBC) [Entitic mass] 29.6 pg Normal 27.0-31.3 [facility] Comment on above: Performed By: #### C BCND #### [facility] [address] [place] [address] MCHC 34.1 % Normal 33.0-37.0 [facility] Comment on above: Performed By: #### C BCND #### [facility] [address] [place] [address] MCV (RBC) [Entitic vol] 87.0 fL Normal 79.4-94.8 [facility] Comment on above: Performed By: #### C BCND #### [facility] [address] [place] [address] Platelets (Bld) [#/Vol] 290 10*3/uL Normal 130-400 [facility] Comment on above: Performed By: #### C BCND #### [facility] [address] [place] [address] RBC (Bld) [#/Vol] 5.06 10*6/uL Normal 4.20-5.40 [facility] Comment on above: Performed By: #### C BCND #### [facility] [address] [place] [address] WBC (Bld) [#/Vol] 5.6 10*3/uL Normal 4.8-10.8 [facility] Comment on above: Performed By: #### C BCND #### [facility] [address] [place] [address] CNOVon 02-23-2024 CNOV Office Visit (IMANI ) CASE ABDI ([id number]) 1990 F Date Time Provider Department 02/23/24 10:00 AM LLUVIA GRAY During your visit today, we recorded the following information about you: Pulse Blood pressure Weight 69/minute 134/80 125.8 kg Lluvia Gray MD 02/23/2024 10:33 AM [facility] [place] SECTION OF REGIONAL CARDIOLOGY OUTPATIENT VISIT DATE February 23, 2024 OUTPATIENT VISIT TYPE NEW to ca, established to system PRIMARY CARE PHYSICIAN: Vargas Malhotra [address] [place] [address] REFERRING PHYSICIAN: No referring provider defined for this encounter. Patient is being seen at the request of Self for pre-op evaluation for planned knee surgery HISTORY OF PRESENT ILLNESS: Ms. Abdi is a 33 year old female, seen in clinic today for pre-op evaluation for planned knee surgery-repair of torn meniscus. Surgeon Dr. Garcia with [facility], scheduled Mar 08, 2024 CV history reviewed, summarized and updated: Patient of Dr. Rogers. Longstanding chest discomfort with features suggestive of atypical angina versus noncardiac chest pain. If pharmacologic stress SPECT in January 2023 showed no evidence of ischemia/infarction, normal LVEF at 74%. A previous exercise stress test showed poor functional capacity. Echocardiogram in January 2024 showed normal LV size and function, normal LV diastolic function, normal RV size and function and no significant valvular normalities. Evaluation with Dr. Mora in November 2022-potential invasive testing with microvascular testing was recommended which she deferred. Review of previous monitor- did not show any evidence of any significant arrhythmias. Since her discussion with Dr. Mora, She feels that her symptoms have improved significantly. Then she underwent stress SPECT and this showed no ischemia/infarction Before torn meniscus in September, but before that, she was walking 2 miles/10 K steps daily. No definite CV limitations with this. Occasional random sharp chest pains on the chest wall across her breast that happens in specific positions-feels like neck pain/arthritis. Even now, she able to do 20 mins on a stationary bike without any specific CV symptoms. Also started Wegovy Jan 2024 and lost ~10 lbs Otherwise she denies any recurrent chest pain, shortness of breath, leg swelling and symptoms consistent with orthopnea and/or PND. Denies any symptoms consistent with claudication. REVIEW OF SYSTEMS: 10 systems reviewed and are negative with the exception of pertinent positives described in HPI PHYSICAL EXAMINATION: BP 134/80 Pulse 69 Wt 125.8 kg (277 lb 5.4 oz) LMP (LMP Unknown) BMI 50.73 kg/m? General: No acute distress, appears comfortable HEENT: no bruits, No JVD Pulmonary/chest: CTA b/L. No chest wall tenderness/venous engorgments CVS: Normal S1 and S2, Regular rhythm, normal rate. No murmurs/rubs or gallops. No JVD, no lower extremity edema. Central and peripheral pulses 2+ B/L, no carotid or abdominal bruits. Abdomen: Soft, non-tender, non-distended. Bowel sounds normal Extremities: No peripheral edema/varicosities Skin: No rashes/ulcers, warm and pink Neuro: AAOx4 Psych: Normal mood and affect CARDIOVASCULAR MEDICINE TESTING: I have personally reviewed EKG: NSR, 69 bpm Stress test Jan 2023: No ischemia/infarction, normal LVEF PAST MEDICAL HISTORY Diagnosis Date Anemia Arthritis Bradycardia COVID Generalized anxiety disorder Hypothyroidism Migraines Ovarian cyst PAST SURGICAL HISTORY Procedure Laterality Date BLOOD PATCH after last / epidural - used own blood DELIVERY ONLY x 3 COLONOSCOPY SCREENING EGD W/O BRSH SPEC VARICIES INJ OVARIAN CYSTECTOMY Right 2019 PAST SURGICAL HISTORY OF laparoscopy x 2 TONSILLECTOMY AND ADENOIDECTOMY SOCIAL HISTORY Social History Tobacco Use Smoking status: Former Current packs/day: 0.00 Types: Cigarettes Start date: 10/2017 Quit date: 10/2022 Years since quittin.3 Smokeless tobacco: Never Tobacco comments: Social smoker- one pack every 2 weeks Vaping Use Vaping status: Some Days Substances: Nicotine, Flavoring Devices: Disposable Substance Use Topics Alcohol use: Yes Comment: usually 6-10 drinks a month, social Drug use: Yes Types: Marijuana Comment: few times a month FAMILY HISTORY Problem Relation Age of Onset No Ocular Disease Mother Thyroid Mother Anesthesia Problems Mother PONV No Ocular Disease Father Parkinson?s Disease Father Thyroid Sister No Ocular Disease Maternal Grandmother No Ocular Disease Maternal Grandfather No Ocular Disease Paternal Grandmother No Ocular Disease Paternal Grandfather Heart disease Paternal great-grandparent Heart Attack Paternal great-grandparent Bloo (more content not included)... Normal [facility] ECG COMPLETEon 02-23-2024 ECG COMPLETE Ventricular Rate : 6 9 BPM Atrial Rate : 69 BPM P-R Interval : 172 ms QRS Duration : 86 ms Q-T Interval : 382 ms QTC Calculation(Bazett) : 409 ms Calculated P [place] : 56 degrees Calculated R [place] : 88 degrees Calculated T [place] : 52 degrees NORMAL SINUS RHYTHM WITH SINUS ARRHYTHMIA NORMAL ECG Confirmed by PRANAY PALMA MD ([id number]) on 03/15/2024 6:30:19 PM NAME : CASE ABDI PID : [id number] : 1990 Gender : Female Race : ORD : [id number] Procedure Date : Feb 23 2024 10:00:56 Edit Date : Mar 15 2024 18:30:23 Diagnosis: NORMAL SINUS RHYTHM WITH SINUS ARRHYTHMIA NORMAL ECG Confirmed by PRANAY PALMA MD ([id number]) on 03/15/2024 6:30:19 PM Test Reason : Z01.810 Pre-operative cardiovascular examination Location : 145 : LOCARD Overread By : PRANAY PALMA MD Edited By : PRANAY PALMA MD Referred By : Charis Acquired by : Janessa hall [facility] CNOVon 02-18-2024 CNOV Office Visit (RHEUBTiffanie ) CASE ABDI ([id number]) 1990 F Date Time Provider Department 02/18/24 4:20 PM MARCIAL QUEEN During your visit today, we recorded the following information about you: Temperature Pulse Blood pressure Weight 96.9 degrees 71/minute 147/86 124.9 kg Marcial Queen MD 03/01/2024 6:56 PM Signed Rheumatology History AND Physical Patient name: Case Abdi Requesting provider: No att. providers found SUBJECTIVE INITIAL RHEUMATOLOGY VISIT 01/07/2024 (with Marcial Queen): Ms. Case Abdi is a 33 year old female who has a past medical history of Anemia, obesity, ANTHONY, migraines, former smoker, IBS, Bradycardia, COVID, Generalized anxiety disorder, Hypothyroidism, and Migraines. who presents for rheumatologic evaluation. PSHx: She has a past surgical history that includes tonsillectomy AND adenoidectomy delivery only; past surgical history of; blood patch; and ovarian cystectomy (Right, 2019). Allergies: She has No Known Allergies. Current Meds: mobic, zenpep, hyoscyamine sr, esomeprazole, topiramate, nurtec odt, multivit with calcium,iron,min, ascorbic acid/vitamin e/biotin, phentermine hcl, sertraline, cholecalciferol (vitamin d3), bupropion xl, magnesium, iv contrast, and enteric contrast Family History: family history includes Anesthesia Problems in her mother; Heart Attack in her paternal great-grandparent; Heart disease in her paternal great-grandparent; No Ocular Disease in her father, maternal grandfather, maternal grandmother, mother, paternal grandfather, and paternal grandmother; Parkinson?s Disease in her father; Thyroid in her mother and sister. Social History: She reports that she quit smoking about 16 months ago. Her smoking use included cigarettes. She started smoking about 6 years ago. She has never used smokeless tobacco. She reports current alcohol use. She reports current drug use. Drug: Marijuana. Labs: Latest Ref Rng AND Units 11/13/2023 07/10/2023 11/12/2022 CBC WBC 3.70 - 11.00 k/uL 7.70 7.97 5.05 Hemoglobin 11.5 - 15.5 g/dL 15.9 14.4 14.6 Hematocrit 36.0 - 46.0 % 46.1 42.0 41.3 Platelet Count 150 - 400 k/uL 292 267 232 Abs Neut (ANC) 1.45 - 7.50 k/uL 5.43 5.76 3.61 Abs Lymph 1.00 - 4.00 k/uL 1.68 1.59 1.00 Latest Ref Rng AND Units 11/13/2023 07/10/2023 01/30/2023 11/12/2022 CMP Sodium 136 - 144 mmol/L 137 137 138 140 Potassium 3.7 - 5.1 mmol/L 4.2 4.0 4.5 4.1 Chloride 98 - 107 mmol/L 102 101 102 106 CO2 22 - 30 mmol/L 23 23 27 21 Glucose 74 - 99 mg/dL 99 81 90 95 BUN 7 - 21 mg/dL 16 16 20 15 Creatinine 0.58 - 0.96 mg/dL 0.93 0.99 0.93 1.00 Calcium 8.5 - 10.2 mg/dL 9.9 9.8 9.7 9.2 AST 13 - 35 U/L 18 19 17 ALT 7 - 38 U/L 26 20 15 Alkaline Phosphatase 34 - 123 U/L 120 102 92 Latest Ref Rng AND Units 07/10/2023 12/30/2022 ESR, WSR WSR 0 - 20 mm/hr 5 10 Latest Ref Rng AND Units 07/10/2023 12/30/2022 CRP CRP <0.9 mg/dL <0.3 <0.3 Latest Ref Rng AND Units 01/14/2024 C3, C4 C3 86 - 166 mg/dL 183 C4 13 - 46 mg/dL 36 Latest Ref Rng AND Units 11/26/2023 CK CK 42 - 196 U/L 106 Latest Ref Rng AND Units 01/14/2024 11/26/2023 Antibodies GUILLE Negative Negative DNA Antibody <=200 IU/mL 8 10 Crithidia lucillae Negative Negative Negative Anti-Sm <1.0 AI 1.4 1.4 Sm Antibody Negative Positive Positive Ribosomal OPHTHALMOLOGY ASSISTANT Ab <1.0 AI <0.2 <0.2 Ribosomal OPHTHALMOLOGY ASSISTANT Qualitative Negative Negative Negative Chromatin Ab <1.0 AI <0.2 <0.2 Chromatin Ab Qual Negative Negative Negative SSA Antibody Qual Negative Negative Negative Anti-SSA <1.0 AI <0.2 <0.2 Anti-SSB <1.0 AI <0.2 <0.2 OPHTHALMOLOGY ASSISTANT Antibody QUAL Negative Negative Negative Scleroderma Ab Qual Negative Negative Negative Scl-70 Abs, EIA <1.0 AI <0.2 <0.2 Centromere Ab <1.0 AI <0.2 <0.2 CENTROMERE AB QUAL Negative Negative Negative KIRA-1 ANTIBODY, IGG <1.0 AI <0.2 <0.2 KIRA 1 ANTIBODY QUAL Negative Negative Negative Beta 2 Glycoprotein, IgM <20 SMU <9 Beta 2 Glycoprotein 1, IgA <=20 DK <10 Cardiolipin Ab, IgG <15.0 GPL <15.0 GPL <9.0 <9.0 Cardiolipin Ab, IgM <12.5 MPL <12.5 MPL <9.0 <9.0 Cardiolipin Ab, IgA <12.0 APL <12.0 APL <9.0 <9.0 PT Sec 9.7 - 13.0 sec 10.6 PT INR 0.9 - 1.3 1.0 APTT 23.0 - 32.4 sec 29.4 Platelet Neut <1.9 Seconds 0.8 DRVVT Screen 32.0 - 45.7 seconds 38.3 DRVVT Confirm Ratio <1.32 1.12 DRVVT 1:1 Mix 32.0 - 45.7 seconds 36.0 Hex Phase Screen 34.0 - 51.8 seconds 50.3 Hex Phase Confirm 34.2 - 47.9 seconds 43.7 Hex Phase Delta <7.1 delta seconds 6.6 APTT Screen 24.0 - 35.1 seconds 28.3 Thrombin Time <18.6 seconds <16.8 Anti Xa Inhib Assay <0.10 <0.10 Latest Ref Rng AND Units 01/14/2024 11/26/2023 11/12/2023 Urinalysis Protein, Urine Negative Negative PROTEIN UA (POCT) Negative mg/dL Negative RBC, Urine 0-2 /HPF 0-2 /HPF Protein/Creat Ratio <0.15 mg/mg <0.11 <0.12 Labs: 11/08: sCr/LFT WNL Hgb 15.9; GUILLE screen+ positive (more content not included)... Normal [facility] CNOVon 02-16-2024 CNOV Office Visit (OBGYCC ) CASE ABDI ([id number]) 1990 F Date Time Provider Department 02/16/24 3:00 PM CYNDI FREEDMAN [facility] During your visit today, we recorded the following information about you: Pulse Blood pressure Weight Height 66/minute 112/75 124 kg 1.575 m Cyndi Freedman DO 02/16/2024 9:38 PM Signed CC: Annual Exam Case Abdi 33 year old (c/s x 3) here for annual exam. No LMP secondary to IUD (inserted at [facility] 06/18/2020) PAST MEDICAL HISTORY Diagnosis Date Anemia Arthritis Bradycardia COVID Generalized anxiety disorder Hypothyroidism Migraines Ovarian cyst PAST SURGICAL HISTORY Procedure Laterality Date BLOOD PATCH after last / epidural - used own blood DELIVERY ONLY x 3 COLONOSCOPY SCREENING EGD W/O BRSH SPEC VARICIES INJ OVARIAN CYSTECTOMY Right 2019 PAST SURGICAL HISTORY OF laparoscopy x 2 TONSILLECTOMY AND ADENOIDECTOMY Review of Systems: WHIPPER BEATER: SEE HPI The remainder of the review of systems is negative. I have confirmed and edited as necessary, the PFSH and ROS obtained by others. Director Of Operations Support offered: Patient declines. The sensitive examination was discussed with the Patient or Patient's Authorized Staff Attorney. As applicable, any other physician, advance practice provider, medical student, or other health professional student that will be observing or involved in the sensitive examination for educational or training purposes was discussed with the Patient or Authorized Staff Attorney. The Patient or Authorized Staff Attorney has agreed to proceed with the sensitive examination. (Sensitive examination includes inspection and/or palpation of the breasts, pelvis, prostate and anorectal regions) Exam: BP 112/75 Pulse 66 Ht 157.5 cm (5' 2 ) Wt 124 kg (273 lb 5.9 oz) LMP (LMP Unknown) BMI 50.00 kg/m? General: a/o x 3, NAD Thyroid: normal, midline, no palpable masses Breasts: normal, symmetric, no nipple discharge Abdomen: normal, BS, soft, NT, ND, Body mass index is 50 kg/m?. External Genitalia: normal, no lesions Vagina: normal, no lesions / odor / discharge Cervix: normal, nulliparous, NT, mobile, IUD strings not visualized Uterus: Normal, mobile non-tender, limited by body habitus Adnexae: no masses or tenderness appreciated, limited by body habitus. ASSESSMENT/PROBLEM LIST/PLANS: 33 year old here for annual exam: 1.) await pap/HPV results, discussed pap screening recommendations, if WNL then next pap 2028 2.) contraception--IUD placed 06/2020 [facility], as noted at [facility] 12/2023 no IUD strings noted but US notes IUD positioned correctly and strings just inside os. 3.) right hydrosalpinx --continue to monitor, repeat 06/2024February 16, 2024 4:05 PM Cyndi Freedman, Referring Provider: SELF [[id number]] Allergies As of Date: 02/16/2024 (No Known Allergies) Date Reviewed: 02/09/2024 Reviewed by: Case Winter MA - Fully Assessed Reason for Visit: Well Woman [[id number]] Primary Visit Diagnosis:Encounter for gynecological examination without abnormal finding [Z01.419] Other Visit Diagnosis:Intrauterine contraceptive device threads lost, subsequent encounter [T83.32XD] Comment:US 12/2023 IUD in proper location/string noted inside cervical canal Order(s):PAP TEST [[id number]] Order #: [id number]. #:[id number] Prescriptions as of 02/16/2024 - semaglutide, weight loss, (WEGOVY) 0.25 mg/0.5 mL pen injector Inject 0.5 mL subcutaneously one time a week. Change to next dose after 4 weeks. - semaglutide, weight loss, (WEGOVY) 0.5 mg/0.5 mL pen injector Inject 0.5 mL subcutaneously one time a week. Patient should start on January 18, 2024. - esomeprazole (NEXIUM) 40 mg capsule TAKE 1 CAPSULE BY MOUTH TWO TIMES A DAY BEFORE MEALS - hvhdvb-cquiugte-vzmlpts (ZENPEP) 25,000-79,000- 105,000 unit delayed release capsule Take 1 capsule by mouth three times a day with meals. - iv contrast (will be provided with radiology test) CT ABD/PEL -Inject, intravenously, once for 1 dose.No IV access, insert saline lock prior to the beginning of sedation, infusion, injection of imaging exam. Discontinue saline lock post exam. If Pt. has a central line or IVAD, may access for administration according to line specific nursing protocol. Once exam is complete flush line and de-access according to line specific nursing protocol in the CT contrast administration guidelines link. - enteric contrast (will be provided with radiology test) For CT ABD/PEL W IVCON Routine order Administer, As Directed One Time Only, via Oral, Rectal, both Oral and Rectal, Enteric Tube, Stoma or Indwelling Catheter, Enteric Contrast as designated per enteric contrast guidelines - hyoscyamine SR (LEVBID) 0.375 mg 12 hr tablet TAKE 1 TABLET BY MOUTH TWICE A DAY - topiramate (TOPAMAX) 100 mg tablet Take 1 tablet by mouth daily at (more content not included)... Normal [facility] HIGH RISK HUMAN PAPILLOMA GEOVANNA (HPV), PCR FOR DETECTION AND GENOTYPINGon 02-16-2024 HPV 16 Ag Ql (Unsp spec) Not detected Normal Not detected [facility] Comment on above: Order Comment: Speci men Type: FLUID SPECIMENOrdering Facility: [facility] Address: [address] [place] [address] Performed By: #### L [id number] ####[facility]ATORYCL[facility] [id number] [address] LABCLIA [id number] [place] [address] [place]#### HPVHRT ####[facility] LABCLIA [id number] [place] [address] [place] HPV 18 Ag Ql (Unsp spec) Not detected Normal Not detected [facility] Comment on above: Order Comment: Speci men Type: FLUID SPECIMENOrdering Facility: [facility] Address: [address] [place] [address] Performed By: #### L [id number] ####[facility]ORATORYCLIA [id number] [address] LABCLIA [id number] [place] [address] [place]#### HPVHRT ####[facility] LABCLIA [id number] [place] [address] [place] HPV 31+33+35+39+45+51+52+5 6+58+59+66+68 DNA FANTA+probe Ql (Cvx) Not detected Normal Not detected [facility] Comment on above: Order Comment: Speci men Type: FLUID SPECIMENOrdering Facility: [facility] Address: [address] [place] [address] Result Comment: High Risk HPV Other Type includes HPV types 31, 33, 35, 39, 45, 51, 52, 56, 58, 59, 66 and 68. Performed By: #### L [id number] ####[facility]ORATORYCLIA [id number] [address] LABCLIA [id number] [place] [address] [place]#### HPVHRT ####[facility] LABCLIA [id number] [address] [place] PAP TESTon 02-16-2024 ADEQUACY Satisfactory for interpretation. Normal [facility] Comment on above: Order Comment: Speci men Type: FLUID SPECIMENOrdering Facility: [facility] Address: [address] [place] [address] Performed By: #### L [id number] ####[facility] LABORATORYCLIA [id number] [address] LABCLIA [id number] [address] [place]#### HPVHRT ####[facility] LABCLIA [id number] [address] [place] CASE REPORT Normal [facility] [facility] Comment on above: Order Comment: Speci men Type: FLUID SPECIMENOrdering Facility: [facility] Address: [address] [place] [address] Result Comment: Gyne cologic Cytology Report Case: [id number] Authorizing Provider: Cyndi Freedman DO Collected: 02/16/2024 04:23 PM Ordering Location: CB/Gynecology Received: 02/17/2024 05:40 AM First Screen: Pastora Perdomo CT, ASCP Pathologist: Alon Rios MD Specimen: Pap Test, ThinPrep, Cervix Performed By: #### L [id number] ####[facility]ORATORYCLIA [id number] [address] LABCLIA [id number] [place] [address] [place]#### HPVHRT ####[facility] LABCLIA [id number] [place] [address] [place] CLINICAL HISTORY, CYTOLOGY, WHIPPER BEATER Routine Exam Normal [facility] Comment on above: Order Comment: Speci men Type: FLUID SPECIMENOrdering Facility: [facility] Address: [address] [place] [address] Performed By: #### L [id number] ####[facility]ATORYCLIA [id number] [place] [address] [place] [facility] LABCLIA [id number] [place] [address] [place]#### HPVHRT ####[facility] LABCLIA [id number] [place] [address] [place] FINAL PERFORMING LAB Normal [facility] Comment on above: Order Comment: Speci men Type: FLUID SPECIMENOrdering Facility: [facility] Address: [address] [id number] Result Comment: Tech nical component, channel marketing coordinator screening performed at [facility], [address] [place] [address] CLIA# [id number] Diagnostic interpretation performed at [facility], [address] [address] CLIA# [id number] Log Washer: Juanjo Becker M.D. Performed By: #### L [id number] ####[facility]ATORYCLIA [id number] [place] [address] [place] [facility] LABCLIA [id number] [place] [address] [place]#### HPVHRT ####[facility] LABCLIA [id number] [place] [id number] [place] HPV REFLEX Yes HPV Normal [facility] Comment on above: Order Comment: Speci men Type: FLUID SPECIMENOrdering Facility: [facility] Address: [address] [place] [address] Performed By: #### L [id number] ####[facility] LABORATORYCLIA [id number] [place] [address] [place] [facility] LABCLIA [id number] [place] [address] [place]#### HPVHRT ####[facility] LABCLIA [id number] [place] [address] [place] INTERPRETATION, CYTOLOGY, WHIPPER BEATER Normal [facility] Comment on above: Order Comment: Speci men Type: FLUID SPECIMENOrdering Facility: [facility] Address: [address] [place] [address] Result Comment: Nega tive for intraepithelial lesion or malignancy. Performed By: #### L [id number] ####[facility] LABORATORYCLIA [id number] [place] [address] [place] [facility] LABCL[facility] [id number] [place] [address] [place]#### HPVHRT ####[facility] LABCLIA [id number] [place] [address] [place] LMP 06/18/2020 Normal [facility] Comment on above: Order Comment: Speci men Type: FLUID SPECIMENOrdering Facility: [facility] Address: [address] [place] [address] Result Comment: Comm ent: IUD Performed By: #### L [id number] ####[facility] LABORATORYCLIA [id number] [place] [id number] [place] [facility] LABCLIA [id number] [place] [address] [place]#### HPVHRT ####[facility] LABCLIA [id number] [place] [address] [place] PAP DISCLAIMER COMMENT The Pap Smear is a screening test for cervical cancer. False negative results occur with all screening tests, emphasizing the need for rescreening at recommended intervals, and clinical correlation. Normal [facility] Comment on above: Order Comment: Speci men Type: FLUID SPECIMENOrdering Facility: [facility] Address: [address] [place] [address] Performed By: #### L [id number] ####[facility] LABORATORYCLIA [id number] [address] LABCLIA [id number] [place] [address] [place]#### HPVHRT ####[facility] LABCLIA [id number] [place] [address] [place] PAP ALLIANCES CONSULTANT COMMENT This specimen has be en analyzed by the ThinPrep Imaging System, an automated imaging and review system, which assists the laboratory in evaluating cells on ThinPrep Pap tests. Following automated imaging, selected richardson from every slide are reviewed by a channel marketing coordinator. Normal [facility] Comment on above: Order Comment: Speci men Type: FLUID SPECIMENOrdering Facility: [facility] Address: [address] [place] [address] Performed By: #### L [id number] ####[facility] LABORATORYCLIA [id number] [place] [id number] [facility] LABCLIA [id number] [place] [address] [place]#### HPVHRT ####[facility] LABIA [id number] [place] [address] [place] ECHOon 02-15-2024 Echocardiography Echocardiography Rep ort: Transthoracic Echo [facility] Date of service: 02/15/2024 8:13:51 AM POWER MACHINE OPERATOR Ordering physician: MARCIAL QUEEN Indication: Pleurisy Symptom(s): Shortness of breath Technologist: Shay Christian Interpreting physician: Aram Rogers DO PATIENT: Name: MRS. CASE ABDI : 1990 Age: 33 years Gender: F Primary rhythm: sinus. Height: 157.50 cm BSA: 2.36 m Weight: 127.00 kg BMI: 51.2 kg/m Heart rate 70 bpm Blood pressure 112/75 mmHg Color Doppler was utilized to interrogate the cardiac valves assessed and spectral Doppler was utilized to determine the flow velocities and pressure gradients reported in this exam. MEASUREMENTS: Value Indexed Normal Max aortic dimension 2.6 cm Ao < 3.8 Left atrial volume 41 ml (biplane A-L) 18 ml/m Kimberly <= 34 LV ID (diastole) 4.6 cm (2D) 1.93 cm/m LV ID (systole) 2.6 cm (2D) 1.08 cm/m IVS, leaflet tips 1.0 cm (2D) Posterior wall thickness 1.0 cm (2D) Left ventricular mass 154 g (2D) 65 g/m LV stroke volume 65 ml (2D biplane) LV end diastolic volume 107 ml (2D biplane) 45.4 ml/m 29<=EDVi<62 LV end systolic volume 41 ml (2D biplane) 17.6 ml/m Ejection Fraction 61 % (2D biplane) EF > 54 FINDINGS: LEFT VENTRICLE The left ventricle is normal in size. Left ventricular systolic function is normal. Normal left ventricular diastolic function. Mitral annular lateral E/e': 6.4. Mitral annular septal E/e': 11.8. Wall Motion: All scored segments are normal. RIGHT VENTRICLE The right ventricle is normal in size. Right ventricular systolic function is normal. RV systolic tissue Doppler velocity is 13.3 cm/s. Tricuspid annular displacement is 2.7 cm. Estimated right ventricular systolic pressure is not reported due to an insufficient tricuspid regurgitation signal. Estimated right atrial pressure is 3 mmHg based on IVC assessment. LEFT ATRIUM The left atrial cavity is normal in size. Pulmonary Veins: The pulmonary venous pattern showed normal systolic flow. RIGHT ATRIUM The right atrial cavity is normal in size. Inferior Vena Cava: The inferior vena cava appears normal measuring 1.2 cm. The vessel decreases greater than 50 percent with inspiration. MITRAL VALVE The mitral valve leaflets are structurally normal. There is trace mitral valve regurgitation. The pressure half time is 61 msec. The peak mitral E/A ratio is 1.32. The mitral flow deceleration time is 209 msec. TRICUSPID VALVE The tricuspid valve leaflets are structurally normal. There is trace tricuspid valve regurgitation. AORTIC VALVE The aortic valve cusps are structurally normal. There is no aortic valve regurgitation. Tricuspid aortic valve. The peak gradient is 7 mmHg (peak velocity = 130.0 cm/s). PULMONIC VALVE The pulmonic valve cusps are structurally normal. There is trace pulmonic valve regurgitation. AORTA The visualized aorta is normal in size. Measurements - Mid ascending aorta 2.6 cm. PERICARDIUM There is no pericardial effusion. CONCLUSIONS: - Exam indication: Pleurisy - The left ventricle is normal in size. Left ventricular systolic function is normal. EF = 61 5% (2D biplane) Normal left ventricular diastolic function. - The right ventricle is normal in size. Right ventricular systolic function is normal. - There are no significant valvular abnormalities. - The patient has not had a prior CC echocardiographic exam for comparison. * * * Final * * * [facility] : [id number] Normal [facility] XR KNEE RIGHT (MIN 4 VIEWS)o n 02-12-2024 XR KNEE RIGHT (MIN 4 VIEWS) Bilateral standing, bilateral notch, bilateral sunrise and lateral right knee were personally reviewed and they reveal: There is no evidence of any fracture. Patient has moderate medial compartment degenerative changes on the right side and mild degenerative changes in the medial compartment of the left side. There is some osteophyte formation medially on each knee. The lateral joint space is being maintained in each knee. The patellofemoral joint space is being maintained in each knee. There are no intra-articular loose bodies nor destructive bony lesions identified. Interpreted by: Woody Garcia MD Signed by: Woody Garcia MD 02/12/24 Final result Normal [facility] CNOVon 02-09-2024 CNOV Office Visit (LOORRM ) CASE ABDI ([id number]) 1990 F Date Time Provider Department 02/09/24 3:00 PM VALDEZ REYES During your visit today, we recorded the following information about you: Valdez Reyes MD 02/09/2024 3:53 PM Signed This document has been created with the use of voice recognition technology. It may contain inaccuracies: misspellings, inaccurate syntax or word sense that escaped review. The patient is seen at the request of self for evaluation and an opinion regarding treatment. 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 HISTORY OF PRESENT ILLNESS: PAIN EVALUATION 02/08/2024 1057 Pain Level: 5 Pain Location: Knee-Right Description: Sharp Duration Amount of Time: 4 Duration Units: Months Frequency: Intermittent Intervention/Comfort measure: Reposition;Relaxation;Posit ioning;Medication;Cold HISTORY: Case Abdi has complains of right knee pain since September. She states that she noted some aching and then stepped wrong with increasing posterior medial knee pain. She was evaluated at [facility] and had an MRI which demonstrates osteoarthritic changes and a medial meniscus tear. She has been treated conservatively with Mobic and ice and physical therapy. She does feel like she has had at least 50% improvement in her pain. Continues to complain of a pinching sensation posteriorly. No other musculoskeletal complaints ROS: REVIEW OF SYMPTOMS: Constitutional: patient denies any recent fever or significant change in weight Gastrointestinal: patient denies any current abdominal discomfort Musculoskeletal: as noted in the HPI Neurologic: as noted in the HPI SOCIAL HISTORY: Tobacco Use: Types: Cigarettes ALLERGIES: ALLERGIES No Known Allergies PAST MEDICAL HISTORY: PAST MEDICAL HISTORY Diagnosis Date Anemia Arthritis Bradycardia COVID Generalized anxiety disorder Hypothyroidism Migraines Ovarian cyst SOCIAL HISTORY: Tobacco Use: Types: Cigarettes EXAMINATION: BMI= 51.6 GENERAL: Appears healthy, well-nourished, no deformities. ORIENTATION: Alert and oriented to person place and time HABITUS: Morbidly obese GAIT: Normal, the patient did not have trouble getting onto the exam table. right knee exam: Trace effusion Neutral alignment Active full extension, flexion 120. Good patellar tracking/moderate positive patella femoral crepitation Positive pain with palpating medial compartment, negative pain with palpating lateral compartment. Stable to varus and valgus stresses. Ronda is negative Negative anterior/posterior drawer. Pain with McMurrays Palpable dorsalis pedis pulse Calf soft and nontender. Hip exam negative Intact sensation to light touch distally. RADIOGRAPHS: XR Obtained today and personally reviewed by myself demonstrating osteoarthritis MRI: Personally reviewed. Medial meniscus tear. Posterior horn longitudinal complex IMPRESSION: Encounter Diagnosis ICD-10-CM 1. Complex tear of medial meniscus of right knee as current injury, initial encounter S83.231A 2. Primary osteoarthritis of right knee M17.11 Procedures Plan: Right knee medial meniscus tear with underlying osteoarthritis and morbid obesity. I do think she has some meniscal symptomatology and given questionable history of injury. I discussed treatment options both conservative and operative. I discussed conservative treatment and offered a cortisone injection which she declined today but may consider. I discussed a physical therapy bracing activity modification and the Mobic which she is taking. From a surgical standpoint I discussed arthroscopy and debridement. I discussed the potential for residual pain given the arthritic changes. I discussed the procedure postoperative rehab. She reports 50% improvement and wants to continue with the conservative treatment. She will continue with the therapy. If she wants to consider the injection she will let me know. Will follow-up in 2 months 30 spent with [facility] review and review of care everywhere, evaluation the patient, personal review of diagnostic studies, discussion of surgical treatment and options, documentation and coordination of care Valdez Reyes MD Referring Provider: SELF [200] Allergies As of Date: 02/09/2024 (No Known Allergies) Date Reviewed: 02/09/2024 Reviewed by: Case Winter MA - Fully Assessed Reason for Visit: New [[id number]] Primary Visit Diagnosis:Complex tear of medial meniscus of right knee as current injury, initial encounter [S83.231A] Other Visit Diagnosis:Primary osteoarthritis of right knee [M17.11] Prescriptions as of 02/09/2024 - semaglutide, weight loss, (WEGOVY) 0.25 mg/0.5 mL pen in (more content not included)... [facility]EC[facility] ([id number]) 1990 F Date Time Provider Department 02/05/24 MICHAEL HITCHCOCK [facility] During your visit today, we recorded the following information about you: Ema Rojo RN 02/05/2024 10:35 AM Signed Botox referral sent to pharmacy. Ema Rojo RN Allergies As of Date: 02/05/2024 (No Known Allergies) Date Reviewed: 02/04/2024 Reviewed by: Michael Hitchcock APRN.[facility] - Fully Assessed Reason for Visit: Referral Request [124] Prescriptions as of 02/05/2024 - semaglutide, weight loss, (WEGOVY) 0.25 mg/0.5 mL pen injector Inject 0.5 mL subcutaneously one time a week. Change to next dose after 4 weeks. - semaglutide, weight loss, (WEGOVY) 0.5 mg/0.5 mL pen injector Inject 0.5 mL subcutaneously one time a week. Patient should start on January 18, 2024. - esomeprazole (NEXIUM) 40 mg capsule TAKE 1 CAPSULE BY MOUTH TWO TIMES A DAY BEFORE MEALS - amrugk-tegpfoyf-ycnaxhw (ZENPEP) 25,000-79,000- 105,000 unit delayed release capsule Take 1 capsule by mouth three times a day with meals. - iv contrast (will be provided with radiology test) CT ABD/PEL -Inject, intravenously, once for 1 dose.No IV access, insert saline lock prior to the beginning of sedation, infusion, injection of imaging exam. Discontinue saline lock post exam. If Pt. has a central line or IVAD, may access for administration according to line specific nursing protocol. Once exam is complete flush line and de-access according to line specific nursing protocol in the CT contrast administration guidelines link. - enteric contrast (will be provided with radiology test) For CT ABD/PEL W IVCON Routine order Administer, As Directed One Time Only, via Oral, Rectal, both Oral and Rectal, Enteric Tube, Stoma or Indwelling Catheter, Enteric Contrast as designated per enteric contrast guidelines - hyoscyamine SR (LEVBID) 0.375 mg 12 hr tablet TAKE 1 TABLET BY MOUTH TWICE A DAY - topiramate (TOPAMAX) 100 mg tablet Take 1 tablet by mouth daily at bedtime. - multivit with calcium,iron,min (WOMEN'S MULTIPLE VITAMINS ORAL) Take by mouth once daily. - ascorbic acid/vitamin E/biotin (HAIR, SKIN, NAILS WITH BIOTIN ORAL) Take by mouth. - sertraline (ZOLOFT) 25 mg tablet Take 25 mg by mouth. - cholecalciferol, vitamin D3, (VITAMIN D3 ORAL) Take by mouth. - buPROPion XL (WELLBUTRIN XL) 300 mg 24 hr tablet Take 300 mg by mouth once daily. - MAGNESIUM ORAL Take by mouth. Facility-Administered Medications as of 02/05/2024 - acetylcholine 10% solution - [facility] compounding Problem List As Of Date 02/05/2024 Noted Resolved Acid reflux [K21.9] 06/25/2022 Diabetes mellitus (HCC) [E11.9] 01/18/2020 Hypothyroidism [E03.9] 01/12/2022 Iron deficiency [E61.1] 01/10/2022 Migraine [G43.909] 06/25/2022 Myopia of both eyes with astigmatism [H52.13, H*06/25/2022 Wears contact lenses [Z97.3] 06/25/2022 Class 3 severe obesity due to excess calories w*12/15/2022 History of sleep apnea [Z86.69] 01/26/2023 Electronic cigarette use [Z78.9] 01/26/2023 Atypical chest pain [R07.89] 01/26/2023 Chronic nonintractable headache [R51.9, G89.29] 07/06/2023 Episodic lightheadedness [R42] 07/06/2023 IIH (idiopathic intracranial hypertension) [G93*07/06/2023 Sweating abnormality [L74.9] 07/06/2023 Early satiety [R68.81] 07/06/2023 ANTHONY (obstructive sleep apnea) [G47.33] 07/29/2023 Chronic tension-type headache, intractable [G44*08/13/2023 Chronic migraine without aura, intractable, wit*08/13/2023 Bilateral occipital neuralgia [M54.81] 08/13/2023 Cervicalgia [M54.2] 08/13/2023 Chronic daily headache [R51.9] 08/13/2023 Pulsatile tinnitus, right ear [H93.A1] 08/13/2023 Encounter Status:Closed by EMA ROJO on 02/05/24 [facility] CNOVon 02-04-2024 CNOV Office Visit (NEHAAV ) CASE ABDI ([id number]) 1990 F Date Time Provider Department 02/04/24 4:00 PM MICHAEL HITCHCOCK During your visit today, we recorded the following information about you: Pulse Blood pressure 66/minute 108/73 Michael Hitchcock APRN.CNP 02/04/2024 4:02 PM Signed Answers submitted by the patient for this visit: Headache Questionnaire (Submitted on 02/01/2024) How many days of work or school have you missed due to headaches in the last month? : 0 In the last month, how many headache days did you experience ALL of the following symptoms: decreased productivity, light sensitivity and nausea?: 1 How many days have you been completely free of headache pain in the last month? : 7 Follow-Up Onabotulinum Toxin A (BotoxTM) for Migraine Indication: Chronic Intractable Migraine Treatment #: 2 Referral Expiration: 04/04/2024 Prior to the initiation of the FIRST treatment with Onabotulinum Toxin A, the patient reported the following average headache frequency over the past 3 MONTHS: Number of moderate-severe migraine days/month: 2 Number of mild migraine days/month: 28 Number of headache free days/month: 0 (0 headache-free hours) After treatment with Onabotulinum Toxin A: Number of moderate-severe migraine days/month: 1 Number of mild migraine days/month: 22 Number of headache free days/month: 7 (168 headache-free hours) Patient reduction in overall migraine days: Yes Patient reduction in moderate-severe migraine days: Yes Patient reduction of headache hours by 100 hours or more: Yes (reduction of 168 hours) Individual has obtained clinical benefit deemed significant by individual or prescriber (Y/N): Yes Patient's quality of life and ability to perform ADLs has improved (Y/N): Yes Side effects: none Wearing off: No The patient has been assessed for disorders which could contribute to breathing or swallowing difficulty, and there is no contraindication with PREEMPT Botox. There is no documented allergic reaction/hypersensitivity to any botulinum toxin and there is no active infection at proposed injection site. HEADACHE SCORES: 08/13/2023 10/28/2023 02/01/2024 Headache Questions ID Migraine Screener: 2 (Positive) ER visits in the last year: 2 ER visits since last office visit: 0 Hospital stays in the last year: 0 Hospital stays since last office visit 0 Limited ADLs in the last month: 3 10 3 Days missed from work or school in the last month: 1 1 0 Days headache pain free in the last month: 0 0 7 Days per month with ALL of the following symptoms - decreased productivity, light sensitivity and nausea: 7 2 1 Initial improvement of headache after botox injection at last visit: Not applicable, I did not have a botox injection at my last visit Much improved PRN medication usage in the last month: 20 10 10 Patient impression of improvement since last visit: Not applicable, this is my first visit No change 08/13/2023 10/28/2023 02/01/2024 HIT-6 HIT-6 64 (Severe impact) 61 (Severe impact) 64 (Severe impact) 08/13/2023 10/28/2023 02/01/2024 NAYELI - 2/7 SCORES NAYELI-2 Score 2 4 5 NAYELI-7 Score 14 8 08/13/2023 10/28/2023 02/01/2024 Migraine Specific QOL - Higher scores indicate better HRQL Role Function-Restrictive Transformed Score (range: 0-100) 45.71 60 60 Role Function-Preventive Transformed Score (range: 0-100) 65 80 75 Emotional Function Transformed Score (range: 0-100) 40 80 46.67 02/01/2024 10/28/2023 08/13/2023 PHQ-9 Score 8 10 9 BP 108/73 (BP Site: Left Arm, BP Position: Sitting, BP Cuff Size: Large Adult) Pulse 66 LMP (LMP Unknown) Patient name: Case Abdi : 1990 ALLERGIES No Known Allergies UNIVERSAL PROTOCOL / SAFETY CHECKLIST Procedure: Onabotulinum toxin A for migraine Informed Consent Consent Obtained: Written Steele Protocol A moment to CARE was completed SIGN IN Personnel directly involved with the procedure wore the appropriate PPE Special Equipment: N/A Patient/Surrogate Stated/Verified: Patient name, Date of , Relevant allergies and Intended procedure TIME OUT Intended patient and procedure match the source document(s) Consent documented and matches the intended procedure No relevant labs, photos, and/or imaging studies were applicable for review. Correct side/site marked and visible. Medications required for procedure verified. No fire risk assessment and interventions applicable. No implant(s) inserted. SIGN OUT No specimen collected. No instruments, equipment or retained foreign bodies applicable. Post-procedure follow-up management communicated and Plan of Care Visit completed when applicable Written Consent Obtained: Written Injection Sites Left (Units) Left (Sites) Right (Units) Right (Sites) TOTAL (Units) Tester Armature Or Fields 5 1 5 1 10 Procerus Units: 5 Sites: 1 5 Frontalis 10 2 10 (more content not included)... Normal [facility] OCT OPTIC NERVE CIRRUS OU (B OTH EYES)on 01-21-2024 [facility] Radiology Study observation (narrative) [facility] Danny 01-15-2024 ALEXISN Telephone ([facility]) CASE ABDI ([id number]) 1990 F Date Time Provider Department 01/15/24 CYNDI FREEDMAN [facility] During your visit today, we recorded the following information about you: Georgina Sterling 01/15/2024 11:40 AM Signed PER PROVIDER: please call patient to schedule follow up US 6 months from 01/05/2024 then OV with me CPP follow up thanks forget to schedule yesterday sorry FIRST ATTEMPT: Called pt LVM on main number. Georgina Sterling 01/19/2024 12:15 PM Signed Called pt LVM. Juana Tracy, RN 01/19/2024 2:38 PM Signed Pt advised of CPP and scheduling information. Pt plans on scheduling 6m us and f/u at her next OV. Allergies As of Date: 01/15/2024 (No Known Allergies) Date Reviewed: 12/15/2023 Reviewed by: Francesca Barahona MA - Fully Assessed Reason for Visit: Appointment [186] Cmt: Schedule appo Prescriptions as of 01/19/2024 - semaglutide, weight loss, (WEGOVY) 0.25 mg/0.5 mL pen injector Inject 0.5 mL subcutaneously one time a week. Change to next dose after 4 weeks. - semaglutide, weight loss, (WEGOVY) 0.5 mg/0.5 mL pen injector Inject 0.5 mL subcutaneously one time a week. Patient should start on January 18, 2024. - esomeprazole (NEXIUM) 40 mg capsule TAKE 1 CAPSULE BY MOUTH TWO TIMES A DAY BEFORE MEALS - wzgoar-tqnkhldx-nvsulre (ZENPEP) 25,000-79,000- 105,000 unit delayed release capsule Take 1 capsule by mouth three times a day with meals. - iv contrast (will be provided with radiology test) CT ABD/PEL -Inject, intravenously, once for 1 dose.No IV access, insert saline lock prior to the beginning of sedation, infusion, injection of imaging exam. Discontinue saline lock post exam. If Pt. has a central line or IVAD, may access for administration according to line specific nursing protocol. Once exam is complete flush line and de-access according to line specific nursing protocol in the CT contrast administration guidelines link. - enteric contrast (will be provided with radiology test) For CT ABD/PEL W IVCON Routine order Administer, As Directed One Time Only, via Oral, Rectal, both Oral and Rectal, Enteric Tube, Stoma or Indwelling Catheter, Enteric Contrast as designated per enteric contrast guidelines - hyoscyamine SR (LEVBID) 0.375 mg 12 hr tablet TAKE 1 TABLET BY MOUTH TWICE A DAY - topiramate (TOPAMAX) 100 mg tablet Take 1 tablet by mouth daily at bedtime. - multivit with calcium,iron,min (WOMEN'S MULTIPLE VITAMINS ORAL) Take by mouth once daily. - ascorbic acid/vitamin E/biotin (HAIR, SKIN, NAILS WITH BIOTIN ORAL) Take by mouth. - sertraline (ZOLOFT) 25 mg tablet Take 25 mg by mouth. - cholecalciferol, vitamin D3, (VITAMIN D3 ORAL) Take by mouth. - buPROPion XL (WELLBUTRIN XL) 300 mg 24 hr tablet Take 300 mg by mouth once daily. - MAGNESIUM ORAL Take by mouth. Facility-Administered Medications as of 01/19/2024 - acetylcholine 10% solution - [facility] compounding Problem List As Of Date 01/15/2024 Noted Resolved Acid reflux [K21.9] 06/25/2022 Diabetes mellitus (HCC) [E11.9] 01/18/2020 Hypothyroidism [E03.9] 01/12/2022 Iron deficiency [E61.1] 01/10/2022 Migraine [G43.909] 06/25/2022 Myopia of both eyes with astigmatism [H52.13, H*06/25/2022 Wears contact lenses [Z97.3] 06/25/2022 Class 3 severe obesity due to excess calories w*12/15/2022 History of sleep apnea [Z86.69] 01/26/2023 Electronic cigarette use [Z78.9] 01/26/2023 Atypical chest pain [R07.89] 01/26/2023 Chronic nonintractable headache [R51.9, G89.29] 07/06/2023 Episodic lightheadedness [R42] 07/06/2023 IIH (idiopathic intracranial hypertension) [G93*07/06/2023 Sweating abnormality [L74.9] 07/06/2023 Early satiety [R68.81] 07/06/2023 ANTHONY (obstructive sleep apnea) [G47.33] 07/29/2023 Chronic tension-type headache, intractable [G44*08/13/2023 Chronic migraine without aura, intractable, wit*08/13/2023 Bilateral occipital neuralgia [M54.81] 08/13/2023 Cervicalgia [M54.2] 08/13/2023 Chronic daily headache [R51.9] 08/13/2023 Pulsatile tinnitus, right ear [H93.A1] 08/13/2023 Encounter Status:Closed by JUANA TRACY on 01/19/24 Normal [facility] US [place] 01-05-2024 Indication Pelvic pain, IUD strings lost Impression Uterus is 86 x 58 x 45 mm and anteverted Myometrium does not have any direct signs of adenomyosis There is a scar defect of 4 mm with 3 mm of overlying myometrium. Adjacent myometrium is 8 mm IUD is visualized best on 3D imaging, positioned correctly at the uterine fundus Cervix is normal at the nabothian cyst Endometrium is 4 mm without color-flow No free fluid in the cul-de-sac Right ovary is normal Within the right adnexa there is a tubular dilated structure measuring 28 x 9 mm with anechoic fluid most likely hydrosalpinx. However other pathology cannot be excluded. Left ovary is normal Recommendations 1. IUD positioned correctly. Strings are located about 19 mm from the external os. 2. Hydrosalpinx. 3. scar defect Method Transabdominal and transvaginal ultrasound examination, 3D ultrasound examination, Color Doppler examination. View: Adequate visualization Uterus Uterus: Visualized Uterus position: anteverted Description of uterine malformations: normally shaped Myometrium: normal Endometrium: endometrial midline: linear Cervix details: normal Uterus length 86 mm Uterus width 58 mm Uterus height 45 mm Uterus Vol 117.4 cm Endometrial thickness, total 3.7 mm IUCD Position control IUCD type: Mirena intrauterine system. Location: positioned correctly at the fundus of the uterus, with strings just inside the cervix Right Ovary Rt ovary: Visualized Outline: smooth Rt ovary morphology: premenopausal normal follicular Rt ovary D1 24 mm Rt ovary D2 21 mm Rt ovary D3 15 mm Rt ovary Vol 4.0 cm Right Tube Size 28.0 mm x 9.0 mm x 17.0 mm Appearance: Hydrosalpinx Left Ovary Lt ovary: Visualized Outline: smooth Lt ovary morphology: premenopausal normal follicular Lt ovary D1 26 mm Lt ovary D2 22 mm Lt ovary D3 20 mm Lt ovary Vol 6.0 cm [place] no free fluid visualized Procedure To characterize the [IUD], three dimensional imaging was created on a dedicated stand-alone 3D workstation with images created and archived, and supervised and reviewed by the interpreting physician utilizing images from an ultrasound scan performed today. Performed By: Marya Hilliard RDMS Read By: Talha See M.D. MATERNAL MEDICINE [facility] Radiology Study observation (narrative) [facility] MRI KNEE RIGHT WO CONTRASTon 12-08-2023 MRI KNEE RIGHT WO CONTRAST EXAMINATION: MRI OF THE RIGHT KNEE WITHOUT CONTRAST, 12/08/2023 11:03 am TECHNIQUE: Multiplanar multisequence MRI of the right knee was performed without the administration of intravenous contrast. COMPARISON: None. HISTORY: ORDERING SYSTEM PROVIDED HISTORY: Arthritis of both knees TECHNOLOGIST PROVIDED HISTORY: What reading provider will be dictating this exam?->CRC FINDINGS: MENISCI: Intact lateral meniscus. There is a radial tear of the posterior root attachment of the medial meniscus with only minimal subluxation of the body segment. CRUCIATE LIGAMENTS: Intact anterior cruciate and posterior cruciate ligaments. EXTENSOR MECHANISM: Intact quadriceps and patellar tendons. Intact patellar retinacula. LATERAL COLLATERAL LIGAMENT COMPLEX: Intact IT band, lateral collateral ligament proper, biceps femoris tendon and popliteus tendon. MEDIAL COLLATERAL LIGAMENT COMPLEX: The superficial and deep components of the medial collateral ligament are intact. KNEE JOINT: Mild fissuring of the patellar apex and medial facet cartilage, similar changes seen in the medial compartment. No large full-thickness defect. Small amount of joint fluid. BONE MARROW: No evidence of fracture. Normal marrow signal. IMPRESSION: 1. Radial tear of the posterior root attachment of the medial meniscus with only minimal subluxation of the body segment. 2. Mild fissuring of the patellar apex and medial facet cartilage, similar changes seen in the medial compartment. No large full-thickness defect. Interpreted by: Wally Wing MD Signed by: Wally Wing MD 12/08/23 Final result Normal [facility] CK [Catalytic activity/Vol]o n 07-11-2024 Interpretation and review of laboratory results Normal [facility] CREATINE KINASE/CKon 024 CK [Catalytic activity/Vol] 106 U/L 42 - 196 U/L [facility] PROTEIN / CREATININE RATIOon 11-26-2023 Protein/Creatinine (U) [Mass ratio] mg/mg NINF - 0.15 mg/mg [facility] Comment on above: Adult Proteinuria Ca tegories: <0.15 mg/mg is considered normal to mildly increased 0.15 - 0.50 mg/mg is considered moderately increased >0.50 mg/mg is considered severely increased KDIGO. (2013). KDIGO 2012 Clinical Practice Guideline for the Evaluation and Management of Chronic Kidney Disease. Official Journal of the International Society of Nephrology, 3(1), 1-150. Protein/Creatinine (U) [Mass ratio]on 11-26-2023 Creatinine (U) [Mass/Vol] 34.2 mg/dL 20.0 - 300.0 mg/dL [facility] Interpretation and review of laboratory results Normal [facility] Protein (U) [Mass/Vol] mg/dL 0 - 2 0 mg/dL [facility] CBC W Auto Differential pane l (Bld)on 11-13-2023 Basophils (Bld) [#/Vol] 0.04 10*3/uL [facility] Basophils/100 WBC (Bld) 0.5 % [facility] Differential cell count method Nom (Bld) Auto [facility] Eosinophils (Bld) [#/Vol] 0.10 10*3/uL [facility] Eosinophils/100 WBC (Bld) 1.3 % [facility] Erythrocyte distribution width (RBC) [Ratio] 12.1 % 11.5 - 15.0 % [facility] Hematocrit (Bld) [Volume fraction] 46.1 % High 36.0 - 46.0 % [facility] Hemoglobin (Bld) [Mass/Vol] 15.9 g/dL High 11.5 - 15.5 g/dL [facility] Immature granulocytes (Bld) [#/Vol] [facility] Immature granulocytes/100 WBC (Bld) 0.1 % [facility] Interpretation and review of laboratory results Abnormal [facility] Lymphocytes (Bld) [#/Vol] 1.68 10*3/uL [facility] Lymphocytes/100 WBC (Bld) 21.8 % [facility] MCH (RBC) [Entitic mass] 30.2 pg 26.0 - 34.0 pg [facility] MCHC (RBC) [Mass/Vol] 34.5 g/dL 30.5 - 36.0 g/dL [facility] MCV (RBC) [Entitic vol] 87.6 fL 80.0 - 100.0 fL [facility] Monocytes (Bld) [#/Vol] 0.44 10*3/uL [facility] Monocytes/100 WBC (Bld) 5.7 % [facility] Neutrophils (Bld) [#/Vol] 5.43 10*3/uL [facility] Neutrophils/100 WBC (Bld) 70.6 % [facility] Nucleated RBC (Bld) [#/Vol] NINF [facility] Nucleated RBC/100 WBC (Bld) [Ratio] 0.0 % /100 WBC [facility] Platelet mean volume (Bld) [Entitic vol] 9.6 fL 9.0 - 12.7 fL [facility] Platelets (Bld) [#/Vol] 292 10*3/uL [facility] RBC (Bld) [#/Vol] 5.26 10*6/uL High 3.90 - 5.20 m/uL [facility] WBC (Bld) [#/Vol] 7.70 10*3/uL [facility] UA DIP, URINE (POC)on 2023 BILIRUBIN UA (POCT) Negative Negative [facility] CLARITY UA (POCT) Clear [facility] COLOR UA (POCT) Yellow [facility] GLUCOSE UA (POCT) Negative Negative mg/dL [facility] Hemoglobin Ql (U) Negative Negative [facility] KETONE UA (POCT) Negative Negative mg/dL [facility] LEUKOCYTES UA (POCT) Negative Negative [facility] NITR[facility] (POCT) Negative Negative [facility] PH UA (POCT) 6.0 4.5 - 8.0 [facility] Protein Ql (U) Negative Negative mg/dL [facility] SPECIFIC GRAVITY UA (POCT) 1.020 1.005 - 1.030 [facility] UROBILINOGEN UA (POCT) 0.2 Carlyn l E.U./dL [facility] Location:Counts include 234 beds at the [facility], [address], [place], [address] [facility] POINT OF CARE [facility] XR Chest 2 Viewson No acute process. [facility] EXAMINATION: TWO XRAY VIEWS OF THE CHEST 11/03/2023 9:44 am COMPARISON: None. HISTORY: ORDERING SYSTEM PROVIDED HISTORY: Dyspnea, unspecified type TECHNOLOGIST PROVIDED HISTORY: Reason for exam:->shortness of breath What reading provider will be dictating this exam?->CRC FINDINGS: The lungs are without acute focal process. There is no effusion or pneumothorax. The cardiomediastinal silhouette is without acute process. The osseous structures are without acute process. [facility] Heladio Howell MD - 11/03/2023 EXAMINATION: TWO XRAY VIEWS OF THE CHEST 11/03/2023 9:44 am COMPARISON: None. HISTORY: ORDERING SYSTEM PROVIDED HISTORY: Dyspnea, unspecified type TECHNOLOGIST PROVIDED HISTORY: Reason for exam:->shortness of breath What reading provider will be dictating this exam?->CRC FINDINGS: The lungs are without acute focal process. There is no effusion or pneumothorax. The cardiomediastinal silhouette is without acute process. The osseous structures are without acute process. IMPRESSION: No acute process. [facility] Radiology Study observation (narrative) [facility] XR Chest 2 ViewsOrdered By: Heladio Howell on 11-03-2023 [facility] Work Phone: Aerobic Cultureon 02-04-2023 Aerobic Culture Comment TUBE 2 aerob ic and anaerobic No Growth 2 Days Comment TUBE 2 aerobic and anaerobic No Anaerobes Isolated 3 Days Comment TUBE 2 aerobic and anaerobic Gram Stain Result Rare White Blood Cells No Bacteria Seen PERFORMED BY: [place] [address] PATHOLOGIST PRODUCTION SAMPLER BOWEN GRIFFIN M.D. [facility] Comment on above: Performed By: #### G S, AERC #### [address] CSF PCR Panelon 02-04-2023 CSF PCR Panel Comment tube 2 Cytomegalovirus Not detected Cryptococcus neoformans or gattii 9002 Not detected Escherichia coli K1 Not detected Enterovirus Not detected Haemophilus influenzae (reported as H flu) Not detected Human herpesvirus 6 Not detected Herpes simplex virus 1 Not detected Herpes simplex virus 2 DNA [Presence] in Cerebral spinal fluid by FANTA with non-probe detection Not detected Listeria monocytogenes (reported as listeriosis) Not detected Neisseria meningitidis - reported as meningococcal disease Not detected Human parechovirus Not detected Streptococcus pneumoniae - reported at ISP Not detected Group B Strep (Streptococcus agalactiae) Not detected Varicella zoster virus Not detected PERFORMED BY: [facility] [address] [facility] [place] [address] PATHOLOGIST PRODUCTION SAMPLER BOWEN GRIFFIN M.D. [facility] Comment on above: Performed By: #### C PCR PANEL ####[address] Cell Count Differential,CSFo n 02-04-2023 Appearance, CSF Clear Normal Clear [facility] Comment on above: Order Comment: Comme nt tube 1 Performed By: #### C SF TP #2, CSF TP, CSFCCDIFF, CSF GLU, CSF GLU #2, CSFCCDIFF #2 ####[address] Color, CSF Colorless Normal Colorless [facility] Comment on above: Order Comment: Comme nt tube 1 Performed By: #### C SF TP #2, CSF TP, CSFCCDIFF, CSF GLU, CSF GLU #2, CSFCCDIFF #2 ####[address] CSF Supernatant Color Colorless Normal Colorless [facility] Comment on above: Order Comment: Comme nt tube 1 Performed By: #### C SF TP #2, CSF TP, CSFCCDIFF, CSF GLU, CSF GLU #2, CSFCCDIFF #2 ####[address] CSF Volume, Total 13.0 mL [facility] Comment on above: Order Comment: Comme nt tube 1 Performed By: #### C SF TP #2, CSF TP, CSFCCDIFF, CSF GLU, CSF GLU #2, CSFCCDIFF #2 ####[facility] Lymphocytes, CSF 15 Normal [facility] Comment on above: Order Comment: Comme nt tube 1 Result Comment: The reference interval and other method performance specifications have not been established for this body fluid. The test result must be integrated into the clinical context for interpretation. Performed By: #### C SF TP #2, CSF TP, CSFCCDIFF, CSF GLU, CSF GLU #2, CSFCCDIFF #2 ####[address] Monocytes, CSF 2 Normal [facility] Comment on above: Order Comment: Comme nt tube 1 Result Comment: The reference interval and other method performance specifications have not been established for this body fluid. The test result must be integrated into the clinical context for interpretation. Performed By: #### C SF TP #2, CSF TP, CSFCCDIFF, CSF GLU, CSF GLU #2, CSFCCDIFF #2 ####[address] RBC, CSF 89 /uL Normal [facility] Comment on above: Order Comment: Comme nt tube 1 Result Comment: The reference interval and other method performance specifications have not been established for this body fluid. The test result must be integrated into the clinical context for interpretation. Performed By: #### C SF TP #2, CSF TP, CSFCCDIFF, CSF GLU, CSF GLU #2, CSFCCDIFF #2 ####[address] TNC, CSF 1 /uL Normal 0-5 [facility] Comment on above: Order Comment: Comme nt tube 1 Performed By: #### C SF TP #2, CSF TP, CSFCCDIFF, CSF GLU, CSF GLU #2, CSFCCDIFF #2 ####[address] Tube Number Tested, CSF Tube Number: 1 Normal [facility] Comment on above: Order Comment: Comme nt tube 1 Result Comment: PERF ORMED BY: [facility] [address] [place] [address] PATHOLOGIST PRODUCTION SAMPLER BOWEN GRIFFIN M.D. Performed By: #### C SF TP #2, CSF TP, CSFCCDIFF, CSF GLU, CSF GLU #2, CSFCCDIFF #2 ####[facility] [place] [id number] Cell Count Differential,CSF #2on 02-04-2023 Appearance, CSF Clear Normal Clear [facility] Comment on above: Order Comment: Comme nt tube 4 Performed By: #### C SF TP #2, CSF TP, CSFCCDIFF, CSF GLU, CSF GLU #2, CSFCCDIFF #2 #### [facility] [address] Color, CSF Colorless Normal Colorless [facility] Comment on above: Order Comment: Comme nt tube 4 Performed By: #### C SF TP #2, CSF TP, CSFCCDIFF, CSF GLU, CSF GLU #2, CSFCCDIFF #2 #### [facility] [address] Comment, CSF Normal [facility] Comment on above: Order Comment: Comme nt tube 4 Result Comment: DIFF ERENTIAL NOT PERFORMED. NUCLEATED CELLS NOT SEEN. Performed By: #### C SF TP #2, CSF TP, CSFCCDIFF, CSF GLU, CSF GLU #2, CSFCCDIFF #2 #### [address] CSF Supernatant Color Colorless Normal Colorless [facility] Comment on above: Order Comment: Comme nt tube 4 Performed By: #### C SF TP #2, CSF TP, CSFCCDIFF, CSF GLU, CSF GLU #2, CSFCCDIFF #2 #### [address] CSF Volume, Total 13.0 mL Normal [facility] Comment on above: Order Comment: Comme nt tube 4 Performed By: #### C SF TP #2, CSF TP, CSFCCDIFF, CSF GLU, CSF GLU #2, CSFCCDIFF #2 #### [facility] [place] [facility] [address] Eosinophil, CSF Not performed Normal [facility] Comment on above: Order Comment: Comme nt tube 4 Performed By: #### C SF TP #2, CSF TP, CSFCCDIFF, CSF GLU, CSF GLU #2, CSFCCDIFF #2 #### [facility] [place] [facility] [address] Lymphocytes, CSF Not performed Normal [facility] Comment on above: Order Comment: Comme nt tube 4 Performed By: #### C SF TP #2, CSF TP, CSFCCDIFF, CSF GLU, CSF GLU #2, CSFCCDIFF #2 #### [facility] [place] [facility] [address] [place] [address] Monocytes, CSF Not performed Normal [facility] Comment on above: Order Comment: Comme nt tube 4 Performed By: #### C SF TP #2, CSF TP, CSFCCDIFF, CSF GLU, CSF GLU #2, CSFCCDIFF #2 #### [facility] [place] [facility] [address] [place] [address] Neutrophils, CSF Not performed Normal [facility] Comment on above: Order Comment: Comme nt tube 4 Performed By: #### C SF TP #2, CSF TP, CSFCCDIFF, CSF GLU, CSF GLU #2, CSFCCDIFF #2 #### [facility] [place] [facility] [address] [place] [address] RBC, CSF 9 /uL Normal [facility] Comment on above: Order Comment: Comme nt tube 4 Result Comment: The reference interval and other method performance specifications have not been established for this body fluid. The test result must be integrated into the clinical context for interpretation. Performed By: #### C SF TP #2, CSF TP, CSFCCDIFF, CSF GLU, CSF GLU #2, CSFCCDIFF #2 #### [facility] [place] [facility] [address] [place] [address] TNC, CSF 0 /uL Normal 0-5 [facility] Comment on above: Order Comment: Comme nt tube 4 Performed By: #### C SF TP #2, CSF TP, CSFCCDIFF, CSF GLU, CSF GLU #2, CSFCCDIFF #2 #### [facility] [place] [facility] [address] [place] [address] [place] Tube Number Tested, CSF Tube Number: 4 Normal [facility] Comment on above: Order Comment: Comme nt tube 4 Result Comment: PERF ORMED BY: [place] [address] PATHOLOGIST PRODUCTION SAMPLER BOWEN GRIFFIN M.D. Performed By: #### C SF TP #2, CSF TP, CSFCCDIFF, CSF GLU, CSF GLU #2, CSFCCDIFF #2 #### [facility] [place] [facility] [address] Cerebrospinal fluid post-anand trifugation appearance determinationOrdered By: Neyda Lee on 02-04-2023 Appearance (Spun CSF) Colorless Colorless [facility] Cerebrospinal fluid sample t ube volume measurementOrdered By: Neyda Lee on 02-04-2023 Specimen volume (CSF) 13.0 mL [facility] Color CSFOrdered By: Neyda alanis on 02-04-2023 Color (CSF) Colorless Colorless [facility] Glucose [Mass/volume] in Cer ebral spinal fluidOrdered By: Neyda Lee on 02-04-2023 Glucose (CSF) [Mass/Vol] 54 mg/dL 40-70 [facility] Glucose, CSF #2on 02-04-2023 Glucose, CSF #2 54 mg/dL Normal 40-70 [facility] Comment on above: Order Comment: Comme nt tube 4 Performed By: #### C SF TP #2, CSF TP, CSFCCDIFF, CSF GLU, CSF GLU #2, CSFCCDIFF #2 #### [facility] [place] [facility] [address] [place] [address] [place] Glucose, Spinal Fluidon 01-17 Glucose, Spinal Fluid 55 mg/dL Normal 40-70 [facility] Comment on above: Order Comment: Comme nt tube 1 Performed By: #### C SF TP #2, CSF TP, CSFCCDIFF, CSF GLU, CSF GLU #2, CSFCCDIFF #2 #### [facility] [place] [facility] [address] [place] [address] [place] Gram Stainon 02-04-2023 Microscopic observation Gram stain Nom (Unsp spec) Comment TUBE 2 aerobic and anaerobic Gram Stain Result Rare White Blood Cells No Bacteria Seen PERFORMED BY: [place] [address] PATHOLOGIST PRODUCTION SAMPLER BOWEN GRIFFIN M.D. Normal [facility] Comment on above: Performed By: #### G S, AERC #### [address] Gram stain for investigation of transfusion reactionOrdered By: Neyda Lee on 02-04-2023 Microscopic observation Gram stain Nom (Unsp spec) [facility] IR guided lumbar puncture LP on 02-04-2023 IR guided lumbar puncture LP [facility] [place] [address] [place] [address] Interventional Radiology Rpt Signed Patient: Case Abdi MR#: [id number] : 1990 Acct:[id number] Age/Sex: 32 / F ADM Date: 02/04/23 Loc: XD Room: Type: [facility] Attending Dr: Neyda URBANO Copies to: SUNDEEP Marley Ordering Provider: SUNDEEP Marley Date of Service: 02/04/23 IR/IR guided lumbar puncture LP: R93.0 IR guided lumbar puncture LP 02/04/2023 7:12 AM SIGNS AND SYMPTOMS: Headaches, neck pain INFORMED CONSENT: Reason for procedure was discussed with the patient. The procedure expectations risks benefits options and alternatives were discussed. All the questions were answered. The patient understood the results cannot be guaranteed. The procedure is indicated and risks were acceptable. Consent was obtained. PROCEDURE: A fluoroscopically guided lumbar puncture was performed at the L3-L4 level on the left via a left sublaminar approach. The patient was prepped and draped in a sterile manner. 5 mL of lidocaine 1% without epinephrine were used for local anesthesia. A 20-gauge spinal needle was introduced into the subarachnoid space on the left atL3-L4 via a left sublaminar approach. With the patient in the left lateral decubitus position the opening pressure was measured at 20.5 cm CSF. After removal of 13 mL of clear CSF into 4 tubes, the closing pressure was measured at 16.5 cm CSF. The needle was removed and hemostasis was obtained using manual pressure. A bandage was placed over the puncture site. Cumulative Air Kerma in mGy: 52.4 mGy The patient tolerated the procedure well. No immediate complications were detected. IR/IR guided lumbar puncture LP IMPRESSION: Successful fluoroscopically guided lumbar puncture with opening pressure of 20.5 cm CSF and a closing pressure of 16.5 cm CSF, as above. Impression dictated by: Juanjo Castro M.D.02/04/2023 11:47 AM Dictation Location: [place] [address] Transcribed By: [facility] 02/04/23 114 Dictated By: Juanjo Castro II, MD 02/04/231141 Signed By: 02/04/[address] [facility] 02-04-2023 L ------- Specimen: [id number] Received: 02/04/23 Status: LIZ Leos Num: [id number] Spec Type: Cytology Subm Dr: Juanjo Castro II, MD Tissues: A CSF (CSF) Procedures: Cyto Prepstain, DIFF QWIK, PAPSTN Age/ Patient Sex Location Account Attending Physician Case Abdi 32/F XD [id number] RISA Marley-Merry SPEC NUM: [id number] RECD: 02/04/23 STATUS: LIZ LEOS NUM: [id number] CATHIE: 02/04/[address] [facility] [address]: Juanjo Castro II, MD ENTERED: 02/04/[address] [facility] DR: SUNDEEP Marley SPEC TYPE: Cytology DEPT: CNG ENTERED BY: [id number] RECV BY: [id number] ORDERED: Cyto Prepstain, DIFF QWIK, PAPSTN ORDERED: Cyto Prepstain, DIFF QWIK, PAPSTN Pathological Diagnosis CSF fluid, cytology: - Negative for malignant cells - Occasional red blood cells are admixed with rare mononuclear cells, including small lymphocytes and possible 1 monocyte without pleocytosis suspected CPT: 87388 Clinical Information Rule out idiopathic intracranial hypertension Gross Description Received is 1 ml colorless clear unfixed fluid said to have been obtained as Lumbar Puncture. Cytospin slides are stained with Papanicolaou and Diff-Quik stains.(CC/nh) Specimen: [id number] Received: 02/04/23 Status: LIZ Leos Num: [id number] Spec Type: Cytology Subm Dr: Juanjo Castro II, MD Tissues: A CSF (CSF) Procedures: Cyto Prepstain, DIFF QWIK, PAPSTN Patient: JaymeCase [id number] (Continued) Signed (signature on file) Gadiel Avila MD 02/05/23 1532 Normal [facility] Manual cerebrospinal fluid e rythrocytes count (number/volume)Ordered By: Neyda Lee on 02-04-2023 RBC Manual cnt (CSF) [#/Vol] 89 /uL [facility] Comment on above: The reference interv al and other method performance specifications have not been established for this body fluid. The test result must be integrated into the clinical context for interpretation. No Panel InformationOrdered By: Neyda Lee on 02-04-2023 CSF Appearance Clear Clear [facility] CSF Tube Number Tube number: 1 [facility] Nucleated cells [#/volume] i n Cerebral spinal fluid by Manual countOrdered By: Neyda Mcconnelloll on 02-04-2023 Nucleated cells Manual cnt (CSF) [#/Vol] 0.001 10*3/uL 0-5 [facility] Protein [Mass/volume] in Cer ebral spinal fluidOrdered By: Neyda Jesus on 02-04-2023 Protein (CSF) [Mass/Vol] 27 mg/dL [facility] Total Protein, CSF #2on 01-17 Total Protein, CSF #2 27 mg/dL Normal [facility] Comment on above: Order Comment: Comme nt tube 4 Result Comment: PERF ORMED BY: [place] [address] PATHOLOGIST PRODUCTION SAMPLER BOWEN GRIFFIN M.D. Performed By: #### C SF TP #2, CSF TP, CSFCCDIFF, CSF GLU, CSF GLU #2, CSFCCDIFF #2 #### [place] [address] [place] Total Protein, Spinal Fluido n 02-04-2023 Total Protein, Spinal Fluid 32 mg/dL Normal [facility] Comment on above: Order Comment: Comme nt tube 1 Result Comment: PERF ORMED BY: [place] [address] PATHOLOGIST PRODUCTION SAMPLER BOWEN GRIFFIN M.D. Performed By: #### C SF TP #2, CSF TP, CSFCCDIFF, CSF GLU, CSF GLU #2, CSFCCDIFF #2 #### [facility] [address] [place] [address] MR cervical spine wo/w conon 01-31-2023 MR cervical spine wo/w con [facility] [place] [address] MRI Report Signed Patient: Case Abdi MR#: [id number] : 1990 Acct:[id number] Age/Sex: 32 / F ADM Date: 01/30/23 Loc: Room: Type: [facility] Attending Dr: Neyda URBANO Copies to: SUNDEEP Marley Ordering Provider: SUNDEEP Marley Date of Service: 01/30/23 MR/MR cervical spine wo/w con: ATAXIA, PARAESTHESIA MR cervical spine wo/w con 01/30/2023 10:44 PM SIGNS AND SYMPTOMS: Ataxia, paresthesias, bilateral upper extremity weakness with pain in shoulders and upper chest PROTOCOL: Multiplanar multisequence MR images of the cervical spine were obtained with and without IV contrast. CONTRAST: 20 mL of intravenous ProHance COMPARISON: Cervical spine radiographs from the same date. FINDINGS: The bones of the cervical spine are in anatomic alignment. There is preservation of vertebral body heights and intervertebral disc spaces. There is a hemangioma within the T2 vertebral body. The marrow signal is within normal limits, otherwise. The cord is normal in signal. No epidural or paraspinous fluid collection is appreciated. The visualized paraspinous soft tissues are within normal limits. The prevertebral soft tissues are within normal limits. Incidental note is made of flattening of the pituitary within the sella which is atypical for the patient's age. There is no abnormal postcontrast enhancement. At C2-C3: There is a normal disc, central canal, and neural foramen. At C3-C4: There is a normal disc, central canal, and neural foramen. At C4-C5: There is a normal disc, central canal, and neural foramen. At C5-C6: There is a normal disc, central canal, and neural foramen. At C6-C7: There is a normal disc, central canal, and neural foramen. At C7-T1: There is a normal disc, central canal, and neural foramen. MR/MR cervical spine wo/w con IMPRESSION: No cord compression or cord signal abnormality. No abnormal postcontrast enhancement. Incidental note is made of flattening of the pituitary within the sella which is atypical for the patient's age. This can be seen in patients with intracranial hypertension. Impression dictated by: Juanjo Castro M.D.01/31/2023 12:39 PM Dictation Location: [place] [address] Transcribed By: [facility] 01/31/23 1239 Dictated By: Juanjo Castro II, MD 01/31/23 1236 Signed By: 01/31/23 1239 Normal [facility] MR thoracic spine wo/w conon 01-31-2023 MR thoracic spine wo/w con [facility] [place] [address] MRI Report Signed Patient: Case Abdi MR#: [id number] : 1990 Acct:[id number] Age/Sex: 32 / F ADM Date: 01/30/23 Loc: MR Room: Type: [facility] Attending Dr: Neyda URBANO Copies to: SUNDEEP Marley Ordering Provider: SUNDEEP Marley Date of Service: 01/30/23 MR/MR thoracic spine wo/w con: ATAXIA, PARAESTHESIA MR thoracic spine wo/w con 01/30/2023 10:44 PM SIGNS AND SYMPTOMS: Ataxia, paresthesias, bilateral upper extremity weakness with pain around shoulders and upper chest PROTOCOL: Multiplanar multisequence MR images of the thoracic spine were obtained with and without IV contrast CONTRAST: 20 mL of intravenous ProHance COMPARISON: Thoracic spine radiographs from the same date FINDINGS: The bones of the thoracic spine are in anatomic alignment. There is preservation of vertebral body heights. There is mild intervertebral disc height loss at T6-T7, T7-T8, T8-T9, T9- T10, T10-T11, and T11-T12. There is mild Modic type II fatty endplate degenerative change at T7-T8, T8-T9, and T11-T12. The marrow signal is within normal limits, otherwise. No epidural or paraspinous fluid collection is appreciated. The visualized paraspinous soft tissues are within normal limits. There is no abnormal postcontrast enhancement. At T1-T2: There is a normal disc, central canal, and neural foramen. At T2-T3: There is a normal disc, central canal, and neural foramen. At T3-T4: There is a normal disc, central canal, and neural foramen. At T4-T5: There is a normal disc, central canal, and neural foramen. At T5-T6: There is a small focal central disc protrusion with minimal spinal canal narrowing. No neural foraminal stenosis. At T6-T7: There is a left central disc protrusion contributing to mild spinal canal narrowing without significant neural foraminal narrowing. At T7-T8: There is a central disc protrusion extending to the left of midline. There is mild to moderate spinal canal stenosis with no significant neural foraminal narrowing. At T8-T9: There is a left central disc protrusion with minimal spinal canal narrowing. No neural foraminal stenosis. At T9-T10: There is a broad-based disc bulge with a more focal right central disc protrusion. There is moderate narrowing of the spinal canal with mild to moderate bilateral neural foraminal stenosis. At T10-T11: There is a broad-based disc bulge with facet hypertrophy. There is moderate narrowing of spinal canal with mild bilateral neural foraminal stenosis. At T11-T12: There is a left foraminal disc protrusion contributing to moderate to severe left neural foraminal narrowing with mild spinal canal stenosis. At T12-L1: There is a normal disc, central canal, and neural foramen. MR/MR thoracic spine wo/w con IMPRESSION: Multifocal disc and to a lesser extent facet degenerative changes are noted as above contributing to varying degrees of spinal canal and neural foraminal narrowing. See details above. No abnormal postcontrast enhancement is noted. No cord compression or cord signal abnormality. Impression dictated by: Juanjo Castro M.D.01/31/2023 12:33 PM Dictation Location: [place] [address] Transcribed By: [facility] 01/31/23 1233 Dictated By: Juanjo Castro II, MD 01/31/23 1227 Signed By: 01/31/23 1233 Normal [facility] XR pre/post mri xrayon 01-31 XR pre/post mri xray [facility] [address] [place] [id number] XRay Report Signed Patient: Case Abdi MR#: [id number] : 1990 Acct:[id number] Age/Sex: 32 / F ADM Date: 01/30/23 Loc: MR Room: Type: [facility] Attending Dr: Neyda URBANO Copies to: SUNDEEP Marley Ordering Provider: SUNDEEP Marley Date of Service: 01/30/23 XR/XR pre/post mri xray: CERVICAL AND THORACIC XR pre/post mri xray 01/30/2023 9:06 PM SIGNS AND SYMPTOMS: Ataxia, paresthesias, weakness of the upper extremities PROTOCOLS: Lateral and bilateral oblique radiographs of the cervical spine. Frontal and lateral radiograph of the thoracic spine. COMPARISON: None FINDINGS: Cervical spine: There is straightening of the normal cervical lordosis which may be positional or secondary to muscle spasm. The bones are otherwise in anatomic alignment. No significant neural foraminal stenosi s is noted. There is preservation of the vertebral body heights and intervertebral disc spaces. There is no fracture or destructive lesion. Thoracic spine: The bones are in anatomic alignment. There is mild vertebral disc height loss throughout the mid and lower thoracic spine with anterior osteophyte formation. Vertebral body heights are preserved. There is no evidence of fracture or subluxation. XR/XR pre/post mri xray IMPRESSION: Cervical spine: No fracture or subluxation. There is straightening of the normal cervical lordosis which may be positional or secondary to muscle spasm. Thoracic spine: Mild multifocal degenerative changes noted in the mid and lower thoracic spine. No fracture or subluxation. Impression dictated by: Juanjo Castro M.D.01/31/2023 12:27 PM Dictation Location: [place] [address] Transcribed By: [facility] 01/31/23 1227 Dictated By: Juanjo Castro II, MD 01/31/23 1225 Signed By: 01/31/23 1227 [facility] Activated partial thrombopla stin time (aPTT) in platelet poor plasma by coagulation aOrdered By: Neyda Lee on 01-30-2023 aPTT Coag (PPP) [Time] 28.7 s 25.1-36.5 [facility] Comment on above: A hematocrit value g reater than 55% may lead to inaccurate results in coagulation testing. Patients having hematocrit values >55% require a special collection tube for coagulation studies. Please contact the laboratory at [phone] for redraw instructions. Basic metabolic 2000 panelon 01-30-2023 Anion gap [Moles/Vol] 9 mmol/L 9 - 18 mmol/L [facility] Calcium [Mass/Vol] 9.7 mg/dL 8.5 - 10. 2 mg/dL [facility] Chloride [Moles/Vol] 102 mmol/L 97 - 10 5 mmol/L [facility] CO2 [Moles/Vol] 27 mmol/L 22 - 30 mmol/L [facility] Creatinine [Mass/Vol] 0.93 mg/dL 0.58 - 0.96 mg/dL [facility] Estimated Glomerular Filtration Rate 84 mL/min/1.73m >=60 mL/min/1.7 3m [facility] Glucose [Mass/Vol] 90 mg/dL 74 - 99 mg/dL [facility] Potassium [Moles/Vol] 4.5 mmol/L 3.7 - 5.1 mmol/L [facility] Sodium [Moles/Vol] 138 mmol/L 136 - 144 mmol/L [facility] Urea nitrogen [Mass/Vol] 20 mg/dL 7 - 21 mg/dL [facility] Erythrocyte distribution wid th Auto (RBC) [Ratio]Ordered By: Neyda Lee on 01-30-2023 Erythrocyte distribution width (RBC) [Ratio] 12.4 % 11.9-15.3 [facility] Hematocrit Auto (Bld) [Volum e fraction]Ordered By: Neyda Lee on 01-30-2023 Hematocrit (Bld) [Volume fraction] 40.4 % 34.0-46.4 [facility] Hemoglobin [Mass/volume] in BloodOrdered By: Neyda Lee on 01-30-2023 Hemoglobin (Bld) [Mass/Vol] 13.9 g/dL 11.8-15.4 [facility] Hemogram CBC Without Diffon 01-30-2023 Erythrocyte distribution width (RBC) [Ratio] 12.4 % Normal 11.9-15.3 [facility] Comment on above: Performed By: #### C BCNO, PT, PTT ####[facility] [id number] [place] [address] [facility] Hematocrit (Bld) [Volume fraction] 40.4 % Normal 34.0-46.4 [facility] Comment on above: Performed By: #### C BCNO, PT, PTT ####[address] Hemoglobin (Bld) [Mass/Vol] 13.9 g/dL Normal 11.8-15.4 [facility] Comment on above: Performed By: #### C BCNO, PT, PTT ####[address] MCH (RBC) [Entitic mass] 31.1 pg Normal 24.7-34.3 [facility] Comment on above: Performed By: #### C BCNO, PT, PTT ####[address] MCV (RBC) [Entitic vol] 90.2 fL Normal 80-100 [facility] Comment on above: Performed By: #### C BCNO, PT, PTT ####[address] Mean Corpuscular HGB Conc 34.4 g/dL Normal 32.0-35.0 [facility] Comment on above: Performed By: #### C BCNO, PT, PTT ####[address] Platelet mean volume (Bld) [Entitic vol] 7.6 fL Normal 6.3-10.7 [facility] Comment on above: Result Comment: PERF ORMED BY: [facility] [address] [place] [address] PATHOLOGIST PRODUCTION SAMPLER BOWEN GRIFFIN M.D. Performed By: #### C BCNO, PT, PTT ####[place] [id number] [facility] Platelets (Bld) [#/Vol] 214 10*3/uL Normal 150-450 [facility] Comment on above: Performed By: #### C BCNO, PT, PTT ####[place] [id number] [place] RBC (Bld) [#/Vol] 4.48 10*6/uL Normal 3.60-5.00 [facility] Comment on above: Performed By: #### C BCNO, PT, PTT ####[facility] [id number] [place] [id number] [facility] WBC (Bld) [#/Vol] 5.1 10*3/uL Normal 3.8-11.6 [facility] Comment on above: Performed By: #### C BCNO, PT, PTT ####[facility] [id number] INR in Platelet poor plasma by Coagulation assayOrdered By: Neyda Lee on 01-30-2023 INR Coag (PPP) [Relative time] 0.9 {INR} [facility] Comment on above: INR Therapeutic Rang e A) Pre- and Peroperative OAT started two weeks before surgery. NOT HIP SURGERY: 1.5 - 2.5 HIP SURGERY: 2 - 3B) Primary and secondary prevention of venous THROMBOSIS: 2 - 3C) Active venous thrombosis, pulmonary embolismand prevention of recurrent venous thrombosis: 2 - 3D) Prevention of arterial thromboembolismincluding patients with mechanical heart valves: 3 - 4.5 Leukocytes [#/volume] correc beth for nucleated erythrocytes in Blood by Automated counOrdered By: Neyda Lee on 01-30-2023 WBC corrected for nucl RBC Auto (Bld) [#/Vol] 5.1 10*3/uL 3.8-11.6 [facility] MCH Auto (RBC) [Entitic mass ]Ordered By: Neyda Lee on 01-30-2023 MCH (RBC) [Entitic mass] 31.1 pg 24.7-34.3 [facility] MCHC Auto (RBC) [Mass/Vol]Or dered By: Neyda Lee on 01-30-2023 MCHC (RBC) [Mass/Vol] 34.4 g/dL 32.0-35.0 [facility] MCV Auto (RBC) [Entitic vol] Ordered By: Neyda Lee on 01-30-2023 MCV (RBC) [Entitic vol] 90.2 fL 80-100 [facility] Partial Thromboplastin Timeo n 01-30-2023 aPTT Coag (Bld) [Time] 28.7 s Normal 25.1-36.5 [facility] Comment on above: Result Comment: A matocrit value greater than 55% may lead to inaccurate results in coagulation testing. Patients having hematocrit values >55% require a special collection tube for coagulation studies. Please contact the laboratory at [phone] for redraw instructions. PERFORMED BY: [facility] [address] [place] [address] PATHOLOGIST PRODUCTION SAMPLER BOWEN GRIFFIN M.D. Performed By: #### C BCNO, PT, PTT ####[facility] [id number] [place] [id number] [facility] Platelet mean volume Auto (B ld) [Entitic vol]Ordered By: Neyda Lee on 01-30-2023 Platelet mean volume (Bld) [Entitic vol] 7.6 fL 6.3-10.7 [facility] Platelets Auto (Bld) [#/Vol] Ordered By: Neyda Lee on 01-30-2023 Platelets (Bld) [#/Vol] 214 10*3/uL 150-450 [facility] Prothrombin Time INRon 01-30 INR Coag (PPP) [Relative time] 0.9 {INR} Normal [facility] Comment on above: Result Comment: INR Therapeutic Range A) Pre- and Peroperative OAT started two weeks before surgery. NOT HIP SURGERY: 1.5 - 2.5 HIP SURGERY: 2 - 3 B) Primary and secondary prevention of venous THROMBOSIS: 2 - 3 C) Active venous thrombosis, pulmonary embolism and prevention of recurrent venous thrombosis: 2 - 3 D) Prevention of arterial thromboembolism including patients with mechanical heart valves: 3 - 4.5 Performed By: #### C BCNO, PT, PTT ####[place] [id number] [place] [id number] [facility] PT Coag (PPP) [Time] 11.1 s Normal 9.0-12.9 [facility] Comment on above: Result Comment: A he matocrit value greater than 55% may lead to inaccurate results in coagulation testing. Patients having hematocrit values >55% require a special collection tube for coagulation studies. Please contact the laboratory at [phone] for redraw instructions. Performed By: #### C BCNO, PT, PTT ####[facility] [id number] [place] [address] [facility] Prothrombin time (PT)Ordered By: Neyda Lee on 01-30-2023 PT Coag (PPP) [Time] 11.1 s 9.0-12.9 [facility] Comment on above: A hematocrit value g reater than 55% may lead to inaccurate results in coagulation testing. Patients having hematocrit values >55% require a special collection tube for coagulation studies. Please contact the laboratory at [phone] for redraw instructions. RBC Auto (Bld) [#/Vol]Ordere d By: Neyda Lee on 01-30-2023 RBC (Bld) [#/Vol] 4.48 10*6/uL 3.60-5.00 [facility] NM HEPATOBILIARY W EF AND/OR RXon 01-13-2023 NM HEPATOBILIARY W EF AND/OR RX * * *Final Report* * * DATE OF EXAM: Jan 13 2023 1:36PM N 0021 - NM HEPATOBILIARY W EF AND/OR RX / PROCEDURE REASON: multiple diagnoses * * * * Physician Interpretation * * * * HEPATOBILIARY SCAN WITH POST-CCK GALLBLADDER EJECTION FRACTION: CLINICAL HISTORY: Right upper quadrant abdominal pain TECHNIQUE: 5.7 mCi Tc-99m Choletec IV.followed by 60 minutes of abdominal imaging 2.3 mcg (CCK) IV, followed by additional 30 minutes of imaging. RESULT: There is prompt and relatively Homogeneous uptake by the liver. Gallbladder activity is visualized, indicating cystic duct patency. small bowel activity is noted , indicating common bile duct patency. After CCK was administered there is satisfactory emptying from the gallbladder with a calculated gallbladder ejection fraction of 51% (normal > 35%). IMPRESSION: 1. Gallbladder is visualized. Patent cystic and common bile ducts. No scintigraphic evidence of acute cholecystitis. 2. Normal gallbladder ejection fraction. Data Entry Clerk: KRISTEN Transcribe Date/Time: Jan 13 2023 1:39P Dictated by : PAULA AMAYA MD This examination was interpreted and the report reviewed and electronically signed by: PAULA AMAYA MD on Jan 13 2023 1:41PM EST [id number] [facility] ALEXISVeronika 01-12-2023 CNPN Telephone (AVXRMO) CASE ABDI ([id number]) 1990 F Date Time Provider Department 01/12/23 YOSEPH MARADIAGA AVXRMO During your visit today, we recorded the following information about you: Yoseph Maradiaga, (R) 01/12/2023 12:23 PM Signed Called patient with prep information for her HIDA scan Allergies As of Date: 01/12/2023 (No Known Allergies) Date Reviewed: 12/30/2022 Reviewed by: Naren Pimentel MA - Fully Assessed Reason for Visit: Appointment [186] Prescriptions as of 01/12/2023 - esomeprazole (NEXIUM) 40 mg capsule Take 1 capsule by mouth once daily. - amoxicillin-clavulanic acid (AUGMENTIN) 875-125 mg per tablet Take 1 tablet by mouth every 12 hours. - loratadine (CLARITIN) 10 mg tablet Take 10 mg by mouth. - isosorbide mononitrate ER (IMDUR) 30 mg 24 hr tablet TAKE 1 TABLET BY MOUTH EVERY DAY - cholecalciferol, vitamin D3, (VITAMIN D3 ORAL) Take by mouth. - buPROPion XL (WELLBUTRIN XL) 300 mg 24 hr tablet Take 300 mg by mouth once daily. - MAGNESIUM ORAL Take by mouth. Problem List As Of Date 01/12/2023 Noted Resolved Acid reflux [K21.9] 06/25/2022 Diabetes mellitus (HCC) [E11.9] 01/18/2020 Hypothyroidism [E03.9] 01/12/2022 Iron deficiency [E61.1] 01/10/2022 Migraine [G43.909] 06/25/2022 Myopia of both eyes with astigmatism [H52.13, H*06/25/2022 Wears contact lenses [Z97.3] 06/25/2022 Obesity, Class III, BMI >= 40 [E66.01] 12/15/2022 Encounter Status:Closed by YOSEPH MARADIAGA on 01/12/23 [facility] ESR Westergren method (Bld) [Velocity]on 12-31-2022 ESR (Bld) [Velocity] 10 mm/h 0 - 20 mm/hr [facility] MR head/brain wo/w conon MR head/brain wo/w con [facility] [place] [address] MRI Report Signed Patient: Case Abdi MR#: [id number] : 1990 Acct:[id number] Age/Sex: 32 / F ADM Date: 12/18/22 Loc: MR Room: Type: [facility] Attending Dr: Elie Lerner DO Copies to: Elie Lerner DO Ordering Provider: Elie Lerner DO Date of Service: 12/18/22 MR/MR head/brain wo/w con: R27.0 MR head/brain wo/w con 12/18/2022 7:38 AM SIGN AND SYMPTOMS: Chronic headaches, chest pain PROTOCOL: Multiplanar multisequence MR images of the brain were obtained with and without IV contrast CONTRAST: 20 mL of intravenous ProHance COMPARISON: 02/15/2021 FINDINGS: Extra axial spaces: Age appropriate. Hemorrhage: None. Ventricular system: Within normal limits. Basal cisterns: Within normal limits and not effaced. Cerebral parenchyma: Normal in signal. Midline shift: None.. Cerebellum: Within normal limits. Brainstem: Within normal limits. OTHER: Calvarium: Normal marrow signal. Vascular system: Satisfactory flow voids within the anterior and posterior circulation. There is flattening of the posterior lateral aspect of the transverse sinuses bilaterally. Visualized Paranasal sinuses: Within normal limits. Visualized Orbits: Within normal limits. Visualized upper cervical spine: Within normal limits. Sella and skull base: Within normal limits. There is flattening of the dome of the pituitary within the sella which is atypical for the patient's age. This is similar to the prior study. MR/MR head/brain wo/w con IMPRESSION: No acute intracranial pathology or abnormal postcontrast enhancement. There is flattening of the posterior lateral aspect of the transverse sinuses bilaterally. There is flattening of the dome of the pituitary within the sella which is atypical for the patient's age. This is similar to the prior study. These findings can be seen in patients with intracranial hypertension. Correlation with patient's clinical picture is recommended. Impression dictated by: Juanjo Castro M.D.12/18/2022 1:20 PM Dictation Location: [place] [address] Transcribed By: SEDA 12/18/22 1320 Dictated By: Juanjo Castro II, MD 12/18/22 1312 Signed By: 12/18/22 1320 [facility] CBC W Auto Differential pane l (Bld)on 11-12-2022 Basophils (Bld) [#/Vol] 0.03 10*3/uL Normal <0.11 [facility] Comment on above: Order Comment: Speci men Type: BLOOD SPECIMEN Ordering Facility: [facility] Address: [address] [address] Performed By: #### 2 4322-12, #### [facility] CLIA [id number] [place] [address] [place] Basophils/100 WBC (Bld) 0.6 % Normal [facility] Comment on above: Order Comment: Speci men Type: BLOOD SPECIMEN Ordering Facility: [facility] Address: [address] [address] Performed By: #### 2 432 #### [facility] CLIA [id number] [address] [facility] [address] [place] Differential cell count method Nom (Bld) Auto Normal [facility] Comment on above: Order Comment: Speci men Type: BLOOD SPECIMEN Ordering Facility: [facility] Address: [address] [address] Performed By: #### 2 #### [facility] CLIA [id number] [facility] [address] [place] Eosinophils (Bld) [#/Vol] 0.06 10*3/uL Normal <0.46 [facility] Comment on above: Order Comment: Speci men Type: BLOOD SPECIMEN Ordering Facility: [facility] Address: [address] [address] Performed By: #### 2 8, #### [facility] CLIA [id number] [address] [place] [address] [place] Eosinophils/100 WBC (Bld) 1.2 % Normal [facility] Comment on above: Order Comment: Speci men Type: BLOOD SPECIMEN Ordering Facility: [facility] Address: [address] [address] Performed By: #### 2 4322-12, #### [facility] IA [id number] [address] [place] [address] [place] Erythrocyte distribution width (RBC) [Ratio] 11.7 % Normal 11.5-15.0 [facility] Comment on above: Order Comment: Speci men Type: BLOOD SPECIMEN Ordering Facility: [facility] Address: [address] [place] [address] Performed By: #### 2 4322-12, #### [facility] CLIA [id number] [place] [address] [place] Hematocrit (Bld) [Volume fraction] 41.3 % Normal 36.0-46.0 [facility] Comment on above: Order Comment: Speci men Type: BLOOD SPECIMEN Ordering Facility: [facility] Address: [address] [address] Performed By: #### 2 4322-12, #### [facility] CLIA [id number] [address] [place] [address] [place] Hemoglobin (Bld) [Mass/Vol] 14.6 g/dL Normal 11.5-15.5 [facility] Comment on above: Order Comment: Speci men Type: BLOOD SPECIMEN Ordering Facility: [facility] Address: [address] [address] Performed By: #### 2 4322-12, #### [facility] CLIA [id number] [address] [place] [address] [place] Immature granulocytes (Bld) [#/Vol] 10*3/uL Normal <0.10 [facility] Comment on above: Order Comment: Speci men Type: BLOOD SPECIMEN Ordering Facility: [facility] Address: [address] [address] Performed By: #### 2 4322-12, #### [facility] CLIA [id number] [address] [place] [address] [place] Immature granulocytes/100 WBC (Bld) 0.2 % Normal [facility] Comment on above: Order Comment: Speci men Type: BLOOD SPECIMEN Ordering Facility: [facility] Address: [address] [address] Performed By: #### 2 4322-12, #### [facility] CLIA [id number] [address] [place] [address] [place] Lymphocytes (Bld) [#/Vol] 1.00 10*3/uL Normal 1.00-4.00 [facility] Comment on above: Order Comment: Speci men Type: BLOOD SPECIMEN Ordering Facility: [facility] Address: [address] [address] Performed By: #### 2 4322-12, #### [facility] CLIA [id number] [address] [place] [address] [place] Lymphocytes/100 WBC (Bld) 19.8 % Normal [facility] Comment on above: Order Comment: Speci men Type: BLOOD SPECIMEN Ordering Facility: [facility] Address: [address] [address] Performed By: #### 2 4322-12, #### [facility] CLIA [id number] [address] [place] [address] [place] MCH (RBC) [Entitic mass] 31.4 pg Normal 26.0-34.0 [facility] Comment on above: Order Comment: Speci men Type: BLOOD SPECIMEN Ordering Facility: [facility] Address: [address] [address] Performed By: #### 2 43238, #### [facility] IA [id number] [place] MCHC (RBC) [Mass/Vol] 35.4 g/dL Normal 30.5-36.0 [facility] Comment on above: Order Comment: Speci men Type: BLOOD SPECIMEN Ordering Facility: [facility] Address: [address] [place] [address] Performed By: #### 2 4328, #### [facility] IA [id number] [address] [place] MCV (RBC) [Entitic vol] 88.8 fL Normal 80.0-100.0 [facility] Comment on above: Order Comment: Speci men Type: BLOOD SPECIMEN Ordering Facility: [facility] Address: [address] [place] [address] Performed By: #### 2 4328, #### [facility] IA [id number] [address] [place] [address] [place] Monocytes (Bld) [#/Vol] 0.34 10*3/uL Normal <0.87 [facility] Comment on above: Order Comment: Speci men Type: BLOOD SPECIMEN Ordering Facility: [facility] Address: [address] [place] [address] Performed By: #### 2 4328, #### [facility] CLIA [id number] [address] [place] Monocytes/100 WBC (Bld) 6.7 % Normal [facility] Comment on above: Order Comment: Speci men Type: BLOOD SPECIMEN Ordering Facility: [facility] Address: [address] [address] Performed By: #### 2 4322-12, #### [facility] CLIA [id number] [address] [place] [address] [place] Neutrophils (Bld) [#/Vol] 3.61 10*3/uL Normal 1.45-7.50 [facility] Comment on above: Order Comment: Speci men Type: BLOOD SPECIMEN Ordering Facility: [facility] Address: [address] [address] Performed By: #### 2 4322-12, #### [facility] CLIA [id number] [address] [place] [address] [place] Neutrophils/100 WBC (Bld) 71.5 % Normal [facility] Comment on above: Order Comment: Speci men Type: BLOOD SPECIMEN Ordering Facility: [facility] Address: [address] [address] Performed By: #### 2 4322-12, #### [facility] CLIA [id number] [address] [place] [address] [place] Nucleated RBC (Bld) [#/Vol] 10*3/uL Normal <0.01 [facility] Comment on above: Order Comment: Speci men Type: BLOOD SPECIMEN Ordering Facility: [facility] Address: [address] [address] Performed By: #### 2 4322-12, #### [facility] CLIA [id number] [address] [place] [address] [place] Nucleated RBC/100 WBC (Bld) [Ratio] 0.0 /100 WBC Normal [facility] Comment on above: Order Comment: Speci men Type: BLOOD SPECIMEN Ordering Facility: [facility] Address: [address] [address] Performed By: #### 2 4322-12, #### [facility] CLIA [id number] [address] [place] [address] [place] Platelet mean volume (Bld) [Entitic vol] 9.7 fL Normal 9.0-12.7 [facility] Comment on above: Order Comment: Speci men Type: BLOOD SPECIMEN Ordering Facility: [facility] Address: [address] [place] [address] Performed By: #### 2 4323-8, #### [facility] CLIA [id number] [address] [place] [address] [place] Platelets (Bld) [#/Vol] 232 10*3/uL Normal 150-400 [facility] Comment on above: Order Comment: Speci men Type: BLOOD SPECIMEN Ordering Facility: [facility] Address: [address] [place] [address] Performed By: #### 2 4323-8, #### [facility] IA [id number] [address] [place] [address] [place] RBC (Bld) [#/Vol] 4.65 10*6/uL Normal 3.90-5.20 [facility] Comment on above: Order Comment: Speci men Type: BLOOD SPECIMEN Ordering Facility: [facility] Address: [address] [place], [place] [address] Performed By: #### 2 4323-8, #### [facility] IA [id number] [address] [place] [address] [place] WBC (Bld) [#/Vol] 5.05 10*3/uL Normal 3.70-11.00 [facility] Comment on above: Order Comment: Speci men Type: BLOOD SPECIMEN Ordering Facility: [facility] Address: [address] [place], [place] [address] Performed By: #### 2 4323-8, #### [facility] CLIA [id number] [address] [place] [address] [place] [facility] [place] Comprehensive metabolic 2000 panelon 11-12-2022 Albumin [Mass/Vol] 4.4 g/dL Normal 3.9-4.9 [facility] Comment on above: Order Comment: Speci men Type: BLOOD SPECIMEN Ordering Facility: [facility] Address: [address] [address] Performed By: #### 2 4322-12, #### [facility] CLIA [id number] [address] [place] [address] [place] ALP [Catalytic activity/Vol] 92 U/L Normal 34-123 [facility] Comment on above: Order Comment: Speci men Type: BLOOD SPECIMEN Ordering Facility: [facility] Address: [address] [address] Performed By: #### 2 4322-12, #### [facility] CLIA [id number] [address] [place] [address] [place] ALT [Catalytic activity/Vol] 15 U/L Normal 7-38 [facility] Comment on above: Order Comment: Speci men Type: BLOOD SPECIMEN Ordering Facility: [facility] Address: [address] Performed By: #### 2 4322-12, #### [facility] CLIA [id number] [address] [place] [address] [place] Anion gap [Moles/Vol] 13 mmol/L Normal 9-18 [facility] Comment on above: Order Comment: Speci men Type: BLOOD SPECIMEN Ordering Facility: [facility] Address: [address] Performed By: #### 2 4322-12, #### [facility] CLIA [id number] [address] [place] [address] [place] AST [Catalytic activity/Vol] 17 U/L Normal 13-35 [facility] Comment on above: Order Comment: Speci men Type: BLOOD SPECIMEN Ordering Facility: [facility] Address: [address] Performed By: #### 2 4322-12, #### [facility] CLIA [id number] [address] [place] [address] [place] Bilirubin [Mass/Vol] 0.9 mg/dL Normal 0.2-1.3 [facility] Comment on above: Order Comment: Speci men Type: BLOOD SPECIMEN Ordering Facility: [facility] Address: [address] [address] Performed By: #### 2 4322-12, #### [facility] CLIA [id number] [address] [place] [address] [place] Calcium [Mass/Vol] 9.2 mg/dL Normal 8.5-10.2 [facility] Comment on above: Order Comment: Speci men Type: BLOOD SPECIMEN Ordering Facility: [facility] Address: [address] [address] Performed By: #### 2 4322-12, #### [facility] IA [id number] [address] [place] [address] [place] Chloride [Moles/Vol] 106 mmol/L High 97-105 [facility] Comment on above: Order Comment: Speci men Type: BLOOD SPECIMEN Ordering Facility: [facility] Address: [address] [place] [address] Performed By: #### 2 4322-12, #### [facility] IA [id number] [address] [place] [address] [place] CO2 [Moles/Vol] 21 mmol/L Low 22-30 [facility] Comment on above: Order Comment: Speci men Type: BLOOD SPECIMEN Ordering Facility: [facility] Address: [address] [place] [address] Performed By: #### 2 4322-12, #### [facility] IA [id number] [address] [place] [address] [place] Creatinine [Mass/Vol] 1.00 mg/dL High 0.58-0.96 [facility] Comment on above: Order Comment: Speci men Type: BLOOD SPECIMEN Ordering Facility: [facility] Address: [address] [address] Performed By: #### 2 4323-8, 58619-0 #### [facility] CLIA [id number] [address] [place] [address] [place] ESTIMATED GLOMERULAR FILTRATION RATE 77 mL/min/1.73m??? Normal >=60 [facility] Comment on above: Order Comment: Rigoberto gould Type: BLOOD SPECIMEN Ordering Facility: [facility] Address: [address] [place], [place] [address] Result Comment: Mavis mated Glomerular Filtration Rate (eGFR) is calculated using the 2020 CKD-EPI creatinine equation. This equation utilizes serum creatinine, sex, and age as parameters. The creatinine assay has traceable calibration to isotope dilution-mass spectrometry. Refer to KDIGO guidelines for clinical interpretation. In patients with unstable renal function, e.g. those with acute kidney injury, the eGFR may not accurately reflect actual GFR. Performed By: #### 2 4323-8, #### [facility] CLIA [id number] [address] [facility] [address] [place] Glucose [Mass/Vol] 95 mg/dL Normal 74-99 [facility] Comment on above: Order Comment: Rigoberto luis fernando Type: BLOOD SPECIMEN Ordering Facility: [facility] Address: [address] [place] [address] Result Comment: The [place] Diabetes Association (ADA) provides guidance for cutoff values for fasting glucose and random glucose. The ADA defines fasting as no caloric intake for at least 8 hours. Fasting plasma glucose results between 100 to 125 mg/dL indicate increased risk for diabetes (prediabetes). Fasting plasma glucose results greater than or equal to 126 mg/dL meet the criteria for diagnosis of diabetes. In the absence of unequivocal hyperglycemia, results should be confirmed by repeat testing. In a patient with classic symptoms of hyperglycemia or hyperglycemic crisis, random plasma glucose results greater than or equal to 200 mg/dL meet the criteria for diagnosis of diabetes. Reference: Standards of Medical Care in Diabetes 2016, [place] Diabetes Association. Diabetes Care. 2016.39(Suppl 1). Performed By: #### 2 43207-23, #### [facility] CLIA [id number] [address] [place] [address] [place] Potassium [Moles/Vol] 4.1 mmol/L Normal 3.7-5.1 [facility] Comment on above: Order Comment: Speci men Type: BLOOD SPECIMEN Ordering Facility: [facility] Address: [address] [place] [address] Performed By: #### 2 4322-12, #### [facility] IA [id number] [address] [place] [address] [place] Protein [Mass/Vol] 7.2 g/dL Normal 6.3-8.0 [facility] Comment on above: Order Comment: Speci men Type: BLOOD SPECIMEN Ordering Facility: [facility] Address: [address] [place] [address] Performed By: #### 2 4322-12, #### [facility] IA [id number] [address] [place] [address] [place] Sodium [Moles/Vol] 140 mmol/L Normal 136-144 [facility] Comment on above: Order Comment: Speci men Type: BLOOD SPECIMEN Ordering Facility: [facility] Address: [address] [place] [address] Performed By: #### 2 4322-12, #### [facility] IA [id number] [address] [place] [address] [place] Urea nitrogen [Mass/Vol] 15 mg/dL Normal 7-21 [facility] Comment on above: Order Comment: Speci men Type: BLOOD SPECIMEN Ordering Facility: [facility] Address: [address] [place], [place] [address] Performed By: #### 2 4322-12, #### [facility] IA [id number] [address] [place] [address] [place] D dimer FEU PPP-mCncon 11-12 Fibrin D-dimer FEU (PPP) [Mass/Vol] <190 Normal <500 [facility] Comment on above: Order Comment: Speci men Type: BLOOD SPECIMEN Ordering Facility: [facility] Address: [address], [place] [address] Performed By: #### 4 8065-7 #### [facility] CLIA [id number] [address] [place] [address] [facility] ED NOTEon 11-12-2022 ED NOTE HNO ID: [id number] Author: Beatrice Capone, Jesus Service: ? Author Type: Professor Of Social Work and Medical Assistant Instructor Type: ED Notes Filed: 11/12/2022 8:48 AM Note Text: Patient very anxious in triage. Normal [facility] ED PROV NOTEon 11-12-2022 ED PROV NOTE HNO ID: [id number] Author: Jose Bernard DO Service: Emergency Medicine Author Type: Physician Type: ED Provider Notes Filed: 11/12/2022 10:51 AM Note Text: ED Provider Note Patient Name: Case Abdi : 1990 SERVICE DATE: 11/12/22 History Patient presents with: Chest tightness: Patient has been feeling chest tightness/ back pain/lt arm pain on and off for 2 weeks. Has appt with [facility] at 1000. HPI Patient is a 32-year-old female with history of anxiety who presented to the ED with chest pain. States that for the last few weeks has had intermittent episodes of chest pain. Discomfort seems to be increasing. Described as a tightness, times going down her left arm, at times with sharp pain in the middle of her chest. Can occur at rest. There have been no aggravating or alleviating factors. States that she was seen in [place] for the symptoms but no cause has been found. She was referred to cardiology, has an appointment later today but could not make it to her appointment due to the severity of her symptoms. She reports a history of significant bradycardia, worsened at nighttime with heart rates in the 30s. There is no personal history of CAD, no family history of early CAD. She has no history of DVT or PE, no recent travel, no leg swelling, no OCPs. Does have IUD. PAST MEDICAL HISTORY Diagnosis Date Generalized anxiety disorder Hypothyroidism History reviewed. No pertinent surgical history. FAMILY HISTORY Problem Relation Age of Onset No Ocular Disease Father No Ocular Disease Mother No Ocular Disease Maternal Grandmother No Ocular Disease Maternal Grandfather No Ocular Disease Paternal Grandmother No Ocular Disease Paternal Grandfather Social History Tobacco Use Smoking status: Former Types: Cigarettes Smokeless tobacco: Never Vaping Use Vaping Use: Former Substance and Sexual Activity Alcohol use: Yes Drug use: Yes Types: Marijuana Sexual activity: Not on file ALLERGIES No Known Allergies Review of Systems Constitutional: Negative for chills and fever. Respiratory: Negative for cough and shortness of breath. Cardiovascular: Positive for chest pain and palpitations. Gastrointestinal: Negative for abdominal pain, nausea and vomiting. Genitourinary: Negative for dysuria and frequency. Neurological: Positive for light-headedness. Negative for weakness, numbness and headaches. Psychiatric/Behavioral: The patient is nervous/anxious. Physical Exam Vitals [11/12/22 0839] BP Pulse Temp Temp src Resp SpO2 Weight Height 135/92 63 36.6 ?C (97.9 ?F) Temporal 20 100 % 108.9 kg (240 lb) 1.575 m (5' 2 ) Physical Exam Vitals and nursing note reviewed. Constitutional: General: She is not in acute distress. Appearance: She is not diaphoretic. Cardiovascular: Rate and Rhythm: Normal rate and regular rhythm. Heart sounds: Normal heart sounds. Pulmonary: Effort: Pulmonary effort is normal. No respiratory distress. Breath sounds: Normal breath sounds. No wheezing or rales. Abdominal: General: Bowel sounds are normal. There is no distension. Palpations: Abdomen is soft. Tenderness: There is no abdominal tenderness. There is no rebound. Musculoskeletal: General: No tenderness. Right lower leg: No edema. Left lower leg: No edema. Skin: General: Skin is warm and dry. Neurological: Mental Status: She is alert and oriented to person, place, and time. Diagnostic Testing ED Labs Ordered and Reviewed COMP METABOLIC PANEL - Abnormal; Notable for the following components: Result Value Ref Range Creatinine 1.00 (*) 0.58 - 0.96 mg/dL Chloride 106 (*) 97 - 105 mmol/L CO2 21 (*) 22 - 30 mmol/L All other components within normal limits HIGH SENSITIVITY TROPONIN T (INITIAL) - Normal D-DIMER - Normal Narrative: 500 ng/mL FEU is the D Dimer cutoff to exclude DVT (deep vein thrombosis) and PE (pulmonary embolism) in patients with a low pre test probability. Supplemental Comment: In patients over 50 years with a low pre test probability for DVT and/or PE, an age adjusted D dimer cutoff can be calculated as [age x 10] ng/mL FEU. For example, a patient of 88 years would have an age adjusted D dimer cutoff of 880 ng/mL FEU. For patients with a suspected DVT, a D dimer level below 500 ng/mL FEU has a negative predictive value of >98.9%, a sensitivity of >96.9% and a specificity of >35.7%. For patients with a suspected PE, a D dimer level below 500 ng/mL FEU has a negative predictive value of >98.5%, and a sensitivity of >96.5% and a specificity of >38.8%. Reference: Jose Martin M, et al. CORNELIA 2014 311:1117 and Van Sandra N, et al. [facility] Int Med 2016 165:253. MAGNESIUM BLD - Normal HIGH SENSITIVITY TROPONIN T (SECOND) - Normal CBC + DIFF CBC with no leukocytosis Troponin initial and repeat is normal Creatinine is mildly elevated magnesium normal Procedures ED Course / Clinical Impressio (more content not included)... Normal [facility] EKGon 11-12-2022 Electrocardiogram Ventricular Rate : 6 4 BPM Atrial Rate : 64 BPM P-R Interval : 174 ms QRS Duration : 84 ms Q-T Interval : 412 ms QTC Calculation(Bazett) : 425 ms Calculated P [place] : 40 degrees Calculated R [place] : 34 degrees Calculated T [place] : 47 degrees Normal sinus rhythm with sinus arrhythmia Normal ECG 0838 no STEMI Confirmed by ETELVINA DAILY M.D. ([id number]), newspaper editor JESSICA FRANCES ([id number]) on 11/13/2022 9:06:50 AM NAME : CASE ABDI PID : [id number] : 1990 Gender : Female Race : ORD : Procedure Date : Nov 12 2022 08:38:13 Edit Date : Nov 13 2022 09:06:51 Diagnosis: Normal sinus rhythm with sinus arrhythmia Normal ECG 0838 no STEMI Confirmed by ETELVINA DAILY M.D. ([id number]), newspaper editor JESSICA FRANCES ([id number]) on 11/13/2022 9:06:50 AM Test Reason : Location : 302 : ED ED Overread By : ETELVINA DAILY M.D. Edited By : JESSICA FRANCES Referred By : , Acquired by : [id number], Normal [facility] HIGH SENSITIVITY TROPONIN T (INITIAL)on 11-12-2022 HIGH SENSITIVITY CIRILO <6 Normal <12 [facility] Comment on above: Order Comment: Rigoberto gould Type: BLOOD SPECIMEN Ordering Facility: [facility] Address: [address] [place] [address] Result Comment: When assessing risk for acute coronary syndromes: In patients undergoing blood draw greater than or equal to 2 hours from symptom onset, with history of very low to moderate risk and non-ischemic ECG, an initial hs-Troponin T less than 12 ng/L AND a 1 hour delta hs-Troponin T less than 3 ng/L should be considered very low risk for 30 day MACE. Performed By: #### L [id number] #### [facility] CLIA [id number] [place] [address] [place] HIGH SENSITIVITY TROPONIN T (SECOND)on 11-12-2022 HIGH SENSITIVITY CIRILO 8 ng/L Normal <12 [facility] Comment on above: Order Comment: Rigoberto gould Type: BLOOD SPECIMEN Ordering Facility: [facility] Address: [address] [place] [address] Result Comment: When assessing risk for acute coronary syndromes: In patients undergoing blood draw greater than or equal to 2 hours from symptom onset, with history of very low to moderate risk and non-ischemic ECG, an initial hs-Troponin T less than 12 ng/L AND a 1 hour delta hs-Troponin T less than 3 ng/L should be considered very low risk for 30 day MACE. Performed By: #### L [id number] #### [facility] CLIA [id number] [place] [id number] [place] Magnesium SerPl-mCncon 11-12 Magnesium [Mass/Vol] 2.2 mg/dL Normal 1.7-2.3 [facility] Comment on above: Order Comment: Rigoberto gould Type: BLOOD SPECIMEN Ordering Facility: [facility] Address: [address] [place] [address] Performed By: #### 2 [id number], [id number] #### [facility] CLIA [id number] [facility] [place] [address] [place] T3 FREE BLDon 11-12-2022 Free T3 [Mass/Vol] 3.6 pg/mL 2.3 - 4.1 pg/mL [facility] T4 FREE/FREE THYROXon 2022 Free T4 [Mass/Vol] 1.2 ng/dL 0.9 - 1.7 ng/dL [facility] TSH [facility] 11-12-2022 TSH Qn 1.030 m[IU]/L 0.270 - 4.200 mIU/L [facility] XR CHEST 2V FRONTAL/LATon XR CHEST 2V FRONTAL/LAT * * *Final Report* * * DATE OF EXAM: Nov 12 2022 9:16AM VHX [id number] - XR CHEST 2V FRONTAL/LAT / PROCEDURE REASON: Chest pain, nonspecific * * * * Physician Interpretation * * * * EXAMINATION: CHEST RADIOGRAPH (2 VIEW FRONTAL and LATERAL) CLINICAL HISTORY: Chest pain, nonspecific MQ: [id number] EXAM DATE/TIME: 11/12/2022 9:16 AM COMPARISON: No relevant prior studies available. RESULT: Lines, tubes, and devices: None. Lungs and pleura: No consolidation. No lung mass. No pleural effusion. No pneumothorax. Cardiomediastinal silhouette: Normal cardiomediastinal silhouette. Bones and soft tissues: Unremarkable. IMPRESSION: No acute radiographic abnormality. Data Entry Clerk: KRISTEN Transcribe Date/Time: Nov 12 2022 9:18A Dictated by : JES DOOLEY MD This examination was interpreted and the report reviewed and electronically signed by: JES DOOLEY MD on Nov 12 2022 9:18AM EST [id number] Normal [facility] CHEMISTRYOrdered By: SYSTEM SYSTEM on 11-10-2022 Anion gap [Moles/Vol] 13 mmol/L Normal 6 - 16 mEq/L [facility] Calcium [Mass/Vol] 9.5 mg/dL Normal 8.9 - 11. 1 mg/dL [facility] Chloride [Moles/Vol] 108 mmol/L Normal 101 - 1 11 mmol/L [facility] CO2 [Moles/Vol] 22 mmol/L Normal 21 - 31 mmol/L [facility] Creatinine [Mass/Vol] 1.1 mg/dL Normal 0.5 - 1.3 mg/dL [facility] GFR/1.73 sq M.predicted among non-blacks MDRD (S/P/Bld) [Vol rate/Area] 68 mL/min/1.73 m2 Normal >=59mL/min /1.73 m2 [facility] Chem S Glucose [Mass/Vol] 91 mg/dL Normal 55 - 199 mg/dL [facility] Potassium [Moles/Vol] 3.9 mmol/L Normal 3.5 - 5.3 mmol/L [facility] Sodium [Moles/Vol] 139 mmol/L Normal 135 - 145 mmol/L [facility] Troponin I.cardiac [Mass/Vol] 3.00 pg/mL Low 10.10 - 27.10 pg/mL [facility] Urea nitrogen [Mass/Vol] 19 mg/dL Normal 5 - 21 mg/dL [facility] Urea nitrogen/Creatinine [Mass ratio] 17 mg/mg Normal 10 - 20 [facility] COAGULATIONOrdered By: Tonio Meadows on 11-10-2022 aPTT Coag (PPP) [Time] 30.9 s Normal 25.1 - 36.5 second(s) [facility] Auto Coag INR Coag (PPP) [Relative time] 1.0 {INR} Invalid Interpretation Code [facility] Auto Coag PT Coag (PPP) [Time] 11.5 s Normal 9.4 - 1 2.5 second(s) [facility] HEMATOLOGYOrdered By: SYSTEM SYSTEM on 11-10-2022 Basophils/100 WBC (Bld) 0.7 % Normal 0.0 - 2.0 % [facility] HemeAutoSS Basophils/Leukocytes Auto (Bld) [Pure # fraction] 0.1 E9/L Normal 0.0 - 0.2 E9/L [facility]eAutoSS Eosinophils/100 WBC (Bld) 1.3 % Normal 0.0 - 8.0 % [facility]eAutoSS Eosinophils/Leukocytes Auto (Bld) [Pure # fraction] 0.1 E9/L Normal 0.0 - 0.5 E9/L [facility]eAutoSS Lymphocytes/100 WBC (Bld) 23.2 % Normal 14.0 - 50.0 % [facility]eAutoSS Lymphocytes/Leukocytes Auto (Bld) [Pure # fraction] 1.7 E9/L Normal 1.0 - 4.0 E9/L [facility]eAutoSS Monocytes/100 WBC (Bld) 7.1 % Normal 4.0 - 14.0 % [facility]eAutoSS Monocytes/Leukocytes Auto (Bld) [Pure # fraction] 0.5 E9/L Normal 0.2 - 1.0 E9/L [facility]eAutoSS Neutrophils/100 WBC (Bld) 67.7 % Normal 36.0 - 75.0 % [facility]eAutoSS Neutrophils/Leukocytes Auto (Bld) [Pure # fraction] 5.0 E9/L Normal 2.0 - 7.5 E9/L [facility] HemeAutoSS HEMATOLOGYOrdered By: Kelsie Fierro on 11-10-2022 Erythrocyte distribution width (RBC) [Ratio] 12.6 % Normal 10.9 - 14.2 % [facility]eAutoSS Hematocrit (Bld) [Volume fraction] 42.0 % Normal 34.0 - 46.0 % [facility] Hemoglobin (Bld) [Mass/Vol] 14.2 g/dL Normal 12.0 - 16.0 gm/dL [facility] MCH (RBC) [Entitic mass] 30.6 pg Normal 27.0 - 34.0 pg [facility] MCHC (RBC) [Mass/Vol] 33.8 g/dL Normal 31.4 - 36.0 gm/dL [facility] MCV (RBC) [Entitic vol] 90.7 fL Normal 80.0 - 100.0 fL [facility]eAuto[facility] Platelet mean volume (Bld) [Entitic vol] 7.5 fL Normal 6.4 - 10.8 fL [facility]eAutoSS Platelets (Bld) [#/Vol] 245.0 E9/L Normal 150.0 - 500.0 E9/L [facility]eAutoSS RBC (Bld) [#/Vol] 4.6 E12/L Normal 4.3 - 5.9 E12/L [facility]eAutoSS WBC corrected for nucl RBC Auto (Bld) [#/Vol] 7.4 E9/L Normal 4.0 - 11.0 E9/L [facility] HemeAutoSS 29on 10-14-2022 29 Addended by: MAGED YEH on: 10/28/2022 10:33 AM Modules accepted: Level of Service Normal [facility] Office Visiton 10-14-2022 Follow-up visit [id number] Mercedes Abdi 1990 F Date Provider Department Center 10/14/2022 [id number]-[id number] YEH CARD [facility] Family History Problem Relation Age of Onset No Known Problems Mother No Known Problems Father Family Status - Relation Status Age at Mother Father Level of Service:01863 [place] OFFICE/OUTPATIENT ESTABLISHED MOD MDM 30-39 MIN Normal [facility] PAP ACOG PANEL 2: 30 to 65on 01-18-2022 . . Normal [facility] Comment on above: Result Comment: Perf ormed at: BA Performed By: #### 4 [id number] #### [facility] [address] [place] [address] Dr. Torri Avila Age Gdln ACOG Testing 30-65 Normal [facility] Comment on above: Performed By: #### 4 [id number] #### [facility] [address] [address] [address] Torri Avila DIAGNOSIS: Comment Normal [facility] Comment on above: Result Comment: NEGA TIVE FOR INTRAEPITHELIAL LESION OR MALIGNANCY. Performed at: BA Performed By: #### 4 [id number] #### [facility] [address] [address] [address] Torri Avila HPV Aptima Negative Normal Negative [facility] Comment on above: Result Comment: This nucleic acid amplification test detects fourteen high-risk HPV types (16,18,31,33,35,39,45,51,52,56,58,59,66,68) without differentiation. Performed at: =G Performed By: #### 4 [id number] #### [facility] [address] [address] [address] Torri Avila Methodology: Comment Normal [facility] Comment on above: Result Comment: This liquid based ThinPrep(R) pap test was screened with the use of an image guided system. Performed at: WB Performed By: #### 4 [id number] #### [facility] [address] [place] [address] Dr. Torri Avila Note: Comment Normal [facility] Comment on above: Result Comment: The Pap smear is a screening test designed to aid in the detection of premalignant and malignant conditions of the uterine cervix. It is not a diagnostic procedure and should not be used as the sole means of detecting cervical cancer. Both false-positive and false-negative reports do occur. . Performed at: WB Performed By: #### 4 [id number] #### [facility] [address] [place] [address] Dr. Torri Avila Performed by: Comment Normal [facility] Comment on above: Result Comment: Hammad Hernandez Range Mechanic (ASCP) Performed at: BA Performed By: #### 4 [id number] #### [facility] [address] [place] [address] Dr. Torri Avila Specimen adequacy: Comment Normal [facility] Comment on above: Result Comment: Sati sfactory for evaluation. Endocervical and/or squamous metaplastic cells (endocervical component) are present. Performed at: BA Performed By: #### 4 [id number] #### [facility] [address] [place] [address] Dr. Torri Avila CHLAMYDIA/GONOCOCCUS FANTA (SW AB/URINE/PAPon 01-16-2022 Chlamydia trachomatis, FANTA Negative Normal Negative [facility] Comment on above: Performed By: #### C T/NGNA #### [facility] [address] [place] [address] Dr. Torri Avila Neisseria gonorrhoeae, FANTA Negative Normal Negative [facility] Comment on above: Performed By: #### C T/NGNA #### [facility] [address] [place] [address] Dr. Torri Avila VAGINITIS/VAGINOSIS DNA PROB Dayne 01-15-2022 Kim species Negative Normal Negative [facility] Comment on above: Performed By: #### T SH, FT3, LIPID, CMP #### [facility] [address] [place] [address] Dr. Torri Avila Gardnerella vaginalis Negative Normal Negative [facility] Comment on above: Performed By: #### T SH, FT3, LIPID, CMP #### [facility] [address] [place] [address] Dr. Torri Avila Trichomonas vaginalis Negative Normal Negative [facility] Comment on above: Performed By: #### T SH, FT3, LIPID, CMP #### [facility] [address] [place] [address] Dr. Torri Avila INSULINon 01-11-2022 Insulin 20.2 uIU/mL Normal 2.6-24.9 [facility] Comment on above: Performed By: #### I NSULIN #### [facility] [address] [place] [address] Dr. Torri Avila CBC AUTO DIFFon 01-10-2022 BASO # 0.0 103/ul Normal 0.0-0.1 [facility] Comment on above: Performed By: #### C BC #### [facility] [address] [place] [address] Dr. Torri Avila Basophils/100 WBC (Bld) 0.2 % Normal 0.2-2.0 [facility] Comment on above: Performed By: #### C BC #### [facility] [address] [place] [address] Dr. Torri Avila EO # 0.1 103/ul Normal 0.0-0.7 [facility] Comment on above: Performed By: #### C BC #### [facility] [address] [place] [address] Dr. Torri Avila Eosinophils/100 WBC (Bld) 1.2 % Normal 0.9-7.0 [facility] Comment on above: Performed By: #### C BC #### [facility] [address] [place] [address] Dr. Torri Avila Erythrocyte distribution width (RBC) [Ratio] 12.5 % Normal 11.0-15.0 [facility] Comment on above: Performed By: #### C BC #### [facility] [address] [place] [address] Dr. Torri Avila Hematocrit (Bld) [Volume fraction] 40.5 % Normal 36.0-48.0 [facility] Comment on above: Performed By: #### C BC #### [facility] [address] [place] [address] Dr. Torri Avila Hemoglobin (Bld) [Mass/Vol] 13.7 g/dL Normal 12.0-16.0 [facility] Comment on above: Performed By: #### C BC #### [facility] [address] [place] [address] Dr. Torri Avila IG # 0.01 10e3/ul Normal 0.00-0.03 [facility] Comment on above: Performed By: #### C BC #### [facility] [address] [place] [address] Dr. Torri Avila IG % 0.2 % Normal 0.0-0.5 [facility] Comment on above: Performed By: #### C BC #### [facility] [address] [place] [address] Dr. Torri Avila LYMPH # 1.4 103/ul Normal 1.2-3.8 [facility] Comment on above: Performed By: #### C BC #### [facility] [address] [place] [address] Dr. Torri Avila Lymphocytes/100 WBC (Bld) 27.3 % Normal 20.5-60.0 [facility] Comment on above: Performed By: #### C BC #### [facility] [address] [place] [address] Dr. Torri Avila MANUAL DIFF REQ NO Normal [facility] Comment on above: Performed By: #### C BC #### [facility] [address] [place] [address] Dr. Torri Avila MCH (RBC) [Entitic mass] 30.7 pg Normal 26.7-34.0 [facility] Comment on above: Performed By: #### C BC #### [facility] [address] [place] [address] Dr. Torri Avila MCHC (RBC) [Mass/Vol] 33.8 g/dL Normal 29.9-35.2 [facility] Comment on above: Performed By: #### C BC #### [facility] [address] [address] [address] Torri Avila MCV (RBC) [Entitic vol] 90.8 fL Normal 81.0-99.0 [facility] Comment on above: Performed By: #### C BC #### [facility] [address] [address] [address] Torri Avial MONO # 0.5 103/ul Normal 0.3-0.8 [facility] Comment on above: Performed By: #### C BC #### [facility] [address] [place] [address] Dr. Torri Avila Monocytes/100 WBC (Bld) 9.1 % Normal 1.7-12.0 [facility] Comment on above: Performed By: #### C BC #### [facility] [address] [place] [address] Dr. oTrri Avila NEUT # 3.1 103/ul Normal 1.4-6.5 [facility] Comment on above: Performed By: #### C BC #### [facility] [address] [place] [address] Dr. Torri Avila Neutrophils/100 WBC (Bld) 62.0 % Normal 43.0-75.0 [facility] Comment on above: Performed By: #### C BC #### [facility] [address] [place] [address] Dr. Torri Avila Platelet mean volume (Bld) [Entitic vol] 9.3 fL Critically low 9.5-13.5 [facility] Comment on above: Performed By: #### C BC #### [facility] [address] [place] [address] Dr. Torri Avila PLT 225 103/ul Normal 150-450 [facility] Comment on above: Performed By: #### C BC #### [facility] [address] [place] [address] Dr. Torri Avila RBC 4.46 106/ul Normal 4.20-5.40 [facility] Comment on above: Performed By: #### C BC #### [facility] [address] [address] [address] Torri Avila WBC 5.1 103/ul Normal 4.0-11.0 [facility] Comment on above: Performed By: #### C BC #### [facility] [address] [place] [address] Dr. Torri Avila FREE T3on 01-10-2022 FREE T3 2.24 pg/mlL Normal 2.18-3.98 [facility] Comment on above: Performed By: #### T SH, FT3, LIPID, CMP #### [facility] [address] [place] [address] Dr. Torri Avila GLYCOHEMOGLOBIN A1Con 2021 ADA RECOMMENDATION SEE BELOW Normal [facility] Comment on above: Result Comment: ADA RECOMMENDED LIMIT 4.0 - 6.0 ADA THERAPEUTIC TARGET < 7.0 ACTION SUGGESTED > 7.0 Performed By: #### A 1C #### [facility] [address] [place] [address] Dr. Torri Avila Glucose [Mass/Vol] 85 mg/dL Normal [facility] Comment on above: Performed By: #### A 1C #### [facility] [address] [place] [address] Dr. Torri Avila HbA1c (Bld) [Mass fraction] 4.6 % Normal 4.5-6.2 [facility] Comment on above: Performed By: #### A 1C #### [facility] [address] [place] [address] Dr. Torri Avila IRONon 01-10-2022 Iron [Mass/Vol] 137.0 ug/dL Normal 50.0-170.0 [facility] Comment on above: Performed By: #### I SHAD #### [facility] [address] [place] [address] Dr. Torri Avila LIPID PROFILEon 01-10-2022 CHOL-HDL RATIO NORM SEE BELOW Normal [facility] Comment on above: Result Comment: 3.3 - 4.4 LOW RISK 4.4 - 7.1 AVERAGE RISK 7.1 - 11.0 MODERATE RISK >11.0 HIGH RISK Performed By: #### T SH, FT3, LIPID, CMP #### [facility] [address] [address] [address] Torri Avila Cholesterol [Mass/Vol] 167 mg/dL Normal <=200 [facility] Comment on above: Performed By: #### T SH, FT3, LIPID, CMP #### [facility] [address] [place] [address] Dr. Torri Avila Cholesterol in HDL [Mass/Vol] 51 mg/dL Normal 40-60 [facility] Comment on above: Performed By: #### T SH, FT3, LIPID, CMP #### [facility] [address] [place] [address] Dr. Torri Avila Cholesterol in LDL [Mass/Vol] 101.2 mg/dL Normal [facility] Comment on above: Performed By: #### T SH, FT3, LIPID, CMP #### [facility] [address] [place] [address] Dr. Torri Avila Cholesterol.total/Chol esterol in HDL [Mass ratio] 3.3 {ratio} Normal [facility] Comment on above: Performed By: #### T SH, FT3, LIPID, CMP #### [facility] [address] [place] [address] Dr. Torri Avila HDL NORMAL > or = 60 mg/dl - LO W CARDIOVASCULAR RISK <40 mg/dl - HIGH CARDIOVASCULAR RISK Normal [facility] Comment on above: Performed By: #### T SH, FT3, LIPID, CMP #### [facility] [address] [place] [address] Dr. Torri Avila LDL CALC NORMAL SEE BELOW Normal [facility] Comment on above: Result Comment: <100 mg/dl OPTIMAL 100 - 129 mg/dl NEAR OR ABOVE OPTIMAL 130 - 159 mg/dl BORDERLINE HIGH 160 - 189 mg/dl HIGH >190 mg/dl VERY HIGH Performed By: #### T SH, FT3, LIPID, CMP #### [facility] [address] [place] [address] Dr. Torri Avila Triglyceride [Mass/Vol] 74 mg/dL Normal <=150 [facility] Comment on above: Performed By: #### T SH, FT3, LIPID, CMP #### [facility] [address] [address] [address] Torri Avila VLDL CALC 14.8 mg/dL Normal [facility] Comment on above: Performed By: #### T SH, FT3, LIPID, CMP #### [facility] [address] [address] [address] Torri Avila PROF 14(COMP METB)on 022 Albumin [Mass/Vol] 3.7 g/dL Normal 3.4-5.0 [facility] Comment on above: Performed By: #### T SH, FT3, LIPID, CMP #### [facility] [address] [place] [address] Dr. Torri Avila Albumin/Globulin [Mass ratio] 1.1 {ratio} Normal [facility] Comment on above: Performed By: #### T SH, FT3, LIPID, CMP #### [facility] [address] [address] [address] Torri Avila ALP [Catalytic activity/Vol] 90 U/L Normal 46-116 [facility] Comment on above: Performed By: #### T SH, FT3, LIPID, CMP #### [facility] [address] [place] [address] Dr. Torri Avila ALT [Catalytic activity/Vol] 27 U/L Normal 14-59 [facility] Comment on above: Performed By: #### T SH, FT3, LIPID, CMP #### [facility] [address] [place] [address] Dr. Torri Avila Anion gap [Moles/Vol] 12.8 mmol/L Normal [facility] Comment on above: Performed By: #### T SH, FT3, LIPID, CMP #### [facility] [address] [place] [address] Dr. Torri Avila AST [Catalytic activity/Vol] 14 U/L Critically low 15-37 [facility] Comment on above: Performed By: #### T SH, FT3, LIPID, CMP #### [facility] [address] [address] [address] Torri Avila Bilirubin [Mass/Vol] 0.6 mg/dL Normal 0.2-1.0 [facility] Comment on above: Performed By: #### T SH, FT3, LIPID, CMP #### [facility] [address] [place] [address] Dr. Torri Avila Calcium [Mass/Vol] 8.8 mg/dL Normal 8.5-10.1 [facility] Comment on above: Performed By: #### T SH, FT3, LIPID, CMP #### [facility] [address] [place] [address] Dr. Torri Avila Chloride [Moles/Vol] 106 mmol/L Normal 98-107 [facility] Comment on above: Performed By: #### T SH, FT3, LIPID, CMP #### [facility] [address] [place] [address] Dr. Torri Avila CO2 [Moles/Vol] 24.9 mmol/L Normal 21.0-32.0 [facility] Comment on above: Performed By: #### T SH, FT3, LIPID, CMP #### [facility] [address] [place] [address] Dr. Torri Avila Creatinine [Mass/Vol] 1.04 mg/dL Critically high 0.55-1.02 [facility] Comment on above: Performed By: #### T SH, FT3, LIPID, CMP #### [facility] [address] [place] [address] Dr. Torri Avila EGFR-AF IRAQI >60 Normal >=60 [facility] Comment on above: Performed By: #### T SH, FT3, LIPID, CMP #### [facility] [address] [place] [address] Dr. Torri Avila EGFR-NON AF IRAQI >60 Normal >=60 [facility] Comment on above: Performed By: #### T SH, FT3, LIPID, CMP #### [facility] [address] [place] [address] Dr. Torri Avila Globulin (S) [Mass/Vol] 3.5 g/dL Normal [facility] Comment on above: Performed By: #### T SH, FT3, LIPID, CMP #### [facility] [address] [address] [address] Torri Avila Glucose [Mass/Vol] 93 mg/dL Normal 74-106 [facility] Comment on above: Performed By: #### T SH, FT3, LIPID, CMP #### [facility] [address] [place] [address] Dr. Torri Avila Potassium [Moles/Vol] 3.7 mmol/L Normal 3.5-5.1 [facility] Comment on above: Performed By: #### T SH, FT3, LIPID, CMP #### [facility] [address] [place] [address] Dr. Torri Avila Protein [Mass/Vol] 7.2 g/dL Normal 6.4-8.2 [facility] Comment on above: Performed By: #### T SH, FT3, LIPID, CMP #### [facility] [address] [place] [address] Dr. Torri Avila Sodium [Moles/Vol] 140 mmol/L Normal 136-145 [facility] Comment on above: Performed By: #### T SH, FT3, LIPID, CMP #### [facility] [address] [place] [address] Dr. Torri Avila Urea nitrogen [Mass/Vol] 15.0 mg/dL Normal 7.0-18.0 [facility] Comment on above: Performed By: #### T SH, FT3, LIPID, CMP #### [facility] [address] [place] [address] Dr. Torri Avila Urea nitrogen/Creatinine [Mass ratio] 14.4 mg/mg Normal [facility] Comment on above: Performed By: #### T SH, FT3, LIPID, CMP #### [facility] [address] [place] [address] Dr. Torri Avila TSHon 01-10-2022 TSH 3.466 uIU/mL Normal 0.358-3.74 0 [facility] Comment on above: Performed By: #### T SH, FT3, LIPID, CMP #### [facility] [facility] [address] [place] [address] Dr. Torri Avila No Panel Information [facility] Vital Signs Date Time Vital Sign Value Performing Clinician Facility 12-30-2024 09:58-0400 Body height 157.5 cm Pac Virtual Work Phone: [facility] Comment on above: per pt 12-30-2024 09:58-0400 Body mass index (BMI) [Ratio] 52.13 kg/m2 Pacc Virtual Work Phone: [facility] 12-30-2024 09:58-0400 Body weight 129.28 kg Pacc Virtual Work Phone: [facility] Comment on above: per pt 12-12-2024 14:07-0400 Body mass index (BMI) [Ratio] 52.1 kg/m2 Gail Ovi DO Work Phone: [facility] 12-12-2024 14:07-0400 Body weight 129.2 kg Gail Ovi DO Work Phone: [facility] 12-12-2024 14:07-0400 Diastolic blood pressure 87 mm[Hg] Gail Ovi DO Work Phone: [facility] 12-12-2024 14:07-0400 Heart rate 61 /min Gail Ovi DO Work Phone: [facility] 12-12-2024 14:07-0400 Systolic blood pressure 119 mm[Hg] Gail Ovi DO Work Phone: [facility] 11-23-2024 15:15-0400 Diastolic blood pressure 66 mm[Hg] Mloz 1 [facility] 11-23-2024 15:15-0400 Heart rate 66 /min Mloz 1 [facility] [employer] 11-23-2024 15:15-0400 Systolic blood pressure 104 mm[Hg] Mloz 1 [facility] 11-23-2024 14:30-0400 Body temperature 97.2 [degF] Mloz 1 [facility] [employer] 11-23-2024 14:30-0400 Respiratory rate 18 /min Mloz 1 [facility] [employer] 11-23-2024 14:30-0400 SaO2% (BldA) [Mass fraction] 98 % Mloz 1 [facility] [employer] 11-23-2024 10:57-0400 Body mass index (BMI) [Ratio] 52.22 kg/m2 Patti Sadid PA-C Work Phone: [facility] 11-23-2024 10:57-0400 Body weight 129.5 kg Patti Sadid PA-C Work Phone: [facility] 11-23-2024 10:57-0400 Diastolic blood pressure 86 mm[Hg] Patti Sadid PA-C Work Phone: [facility] 11-23-2024 10:57-0400 Heart rate 74 /min Patti Sadid PA-C Work Phone: [facility] 11-23-2024 10:57-0400 Systolic blood pressure 141 mm[Hg] Patti Sadid PA-C Work Phone: [facility] 10-26-2024 15:43-0400 Body temperature 98.29 [degF] Mloz 3 [facility] 10-26-2024 15:43-0400 Diastolic blood pressure 70 mm[Hg] Mloz 3 [facility] 10-26-2024 15:43-0400 Heart rate 71 /min Mloz 3 [facility] [employer] 10-26-2024 15:43-0400 Respiratory rate 16 /min Mloz 3 [facility] [employer] 10-26-2024 15:43-0400 SaO2% (BldA) [Mass fraction] 98 % Mloz 3 [facility] 10-26-2024 15:43-0400 Systolic blood pressure 112 mm[Hg] Mloz 3 [facility] 09-30-2024 15:03-0400 Blood Pressure Location Marya Wright [facility] 09-30-2024 15:03-0400 Body temperature 97.7 [degF] Marya Wright [facility] 09-30-2024 15:03-0400 Diastolic blood pressure 82 mm[Hg] Marya Wright [facility] 09-30-2024 15:03-0400 Heart rate 93 /min Marya Wright [facility] 09-30-2024 15:03-0400 SaO2% (BldA) [Mass fraction] 98 % Marya Wright [facility] 09-30-2024 15:03-0400 Systolic blood pressure 126 mm[Hg] Marya Wright [facility] 04-27-2024 11:01-0500 Body height 155 cm Vargas Malhotra DO [facility] 04-27-2024 11:01-0500 Body mass index (BMI) [Ratio] 50.98 kg/m2 Vargas Malhotra DO [facility] 04-27-2024 11:01-0500 Body temperature 98.01 [degF] Vargas Malhotra DO [facility] 04-27-2024 11:01-0500 Body weight 122.47 kg Vargas Malhotra DO [facility] 04-27-2024 11:01-0500 Diastolic blood pressure 113 mm[Hg] Vargas Malhotra DO Work Phone: [facility] [employer] 04-27-2024 11:01-0500 Heart rate 85 /min Vargas Malhotra DO Work Phone: [facility] [employer] 04-27-2024 11:01-0500 Respiratory rate 20 /min Vargas Malhotra DO [facility] 04-27-2024 11:01-0500 SaO2% (BldA) [Mass fraction] 98 % Vargas Malhotra DO Work Phone: [employer] 04-27-2024 11:01-0500 Systolic blood pressure 146 mm[Hg] Vargas Malhotra DO Work Phone: [facility] [employer] 03-08-2024 09:30-0400 Diastolic blood pressure 73 mm[Hg] Woody Garcia MD Work Phone: [employer] 03-08-2024 09:30-0400 Heart rate 65 /min Woody Garcia MD Work Phone: [employer] 03-08-2024 09:30-0400 Respiratory rate 12 /min Woody Garcia MD Work Phone: [facility] [employer] 03-08-2024 09:30-0400 SaO2% (BldA) [Mass fraction] 99 % Woody Garcia MD Work Phone: [employer] 03-08-2024 09:30-0400 Systolic blood pressure 124 mm[Hg] Woody Garcia MD Work Phone: [employer] 03-08-2024 09:10-0400 Body temperature 97.39 [degF] Woody Garcia MD Work Phone: [facility] [employer] 03-08-2024 06:27-0400 Body height 157.5 cm Woody Garcia MD Work Phone: [employer] 03-08-2024 06:27-0400 Body mass index (BMI) [Ratio] 48.47 kg/m2 Woody Garcia MD Work Phone: [employer] 03-08-2024 06:27-0400 Body weight 120.2 kg Woody Garcia MD Work Phone: [employer] 02-23-2024 10:00-0400 Body mass index (BMI) [Ratio] 50.73 kg/m2 Lluvia Gray MD Work Phone: [facility] 02-23-2024 10:00-0400 Body weight 125.8 kg Lluvia Gray MD Work Phone: [facility] 02-23-2024 10:00-0400 Diastolic blood pressure 80 mm[Hg] Lluvia Gray MD Work Phone: [facility] 02-23-2024 10:00-0400 Heart rate 69 /min Lluvia Gray MD Work Phone: [facility] 02-23-2024 10:00-0400 Systolic blood pressure 134 mm[Hg] Lluvia Gray MD Work Phone: [facility] 02-18-2024 16:22-0400 Body mass index (BMI) [Ratio] 50.36 kg/m2 Marcial Queen MD Work Phone: [facility] 02-18-2024 16:22-0400 Body temperature 96.91 [degF] Marcial Queen MD Work Phone: [facility] 02-18-2024 16:22-0400 Body weight 124.9 kg Marcial Queen MD Work Phone: [facility] 02-18-2024 16:22-0400 Diastolic blood pressure 86 mm[Hg] Marcial Queen MD Work Phone: [facility] Comment on above: [facility] [employer] 02-18-2024 16:22-0400 Heart rate 71 /min Marcial Queen MD Work Phone: [facility] 02-18-2024 16:22-0400 Systolic blood pressure 147 mm[Hg] Marcial Queen MD Work Phone: [facility] Comment on above: [facility] [employer] 02-16-2024 15:35-0400 Body height 157.5 cm Cyndi Freedman DO Work Phone: [facility] 02-16-2024 15:35-0400 Body mass index (BMI) [Ratio] 50 kg/m2 Cyndi Freedman DO Work Phone: [facility] 02-16-2024 15:35-0400 Body weight 124 kg Cyndi Bicanovsky DO Work Phone: [facility] 02-16-2024 15:35-0400 Diastolic blood pressure 75 mm[Hg] Cyndi Bicanovsky DO Work Phone: [facility] 02-16-2024 15:35-0400 Heart rate 66 /min Cyndi Bicanovsky DO Work Phone: [facility] 02-16-2024 15:35-0400 Systolic blood pressure 112 mm[Hg] Cyndi Bicanovsky DO Work Phone: [facility] 02-04-2024 15:42-0400 Diastolic blood pressure 73 mm[Hg] Mohammad Hamdan [employer]SENIOR PLANNING MANAGER Work Phone: [facility] 02-04-2024 15:42-0400 Heart rate 66 /min Mohammad Hamdan [employer] BO[employer].SENIOR PLANNING MANAGER Work Phone: [facility] 02-04-2024 15:42-0400 Systolic blood pressure 108 mm[Hg] Mohammad Hamdan [employer] BO[employer].SENIOR PLANNING MANAGER Work Phone: [facility] 01-14-2024 11:10-0400 Body height 157.5 cm Cyndi Bicanovsky DO Work Phone: [facility] 01-14-2024 11:10-0400 Body mass index (BMI) [Ratio] 51.61 kg/m2 Cyndi Bicanovsky DO Work Phone: [facility] 01-14-2024 11:10-0400 Body weight 128 kg Cyndi Bicanovsky DO Work Phone: [facility] 01-14-2024 11:10-0400 Diastolic blood pressure 71 mm[Hg] Cyndi Bicanovsky DO Work Phone: [facility] 01-14-2024 11:10-0400 Heart rate 70 /min Cyndi Bicanovsky DO Work Phone: [facility] 01-14-2024 11:10-0400 Systolic blood pressure 117 mm[Hg] Cyndi Bicanovsky DO Work Phone: [facility] 12-15-2023 09:37-0400 Body height 157.5 cm Tammy Wood [employer].SENIOR PLANNING MANAGER Work Phone: [facility] 12-15-2023 09:37-0400 Body mass index (BMI) [Ratio] 51.21 kg/m2 Tammy Wood [employer] BO[employer]ER.SENIOR PLANNING MANAGER Work Phone: [facility] 12-15-2023 09:37-0400 Body weight 127 kg Tammy Wood [employer].SENIOR PLANNING MANAGER Work Phone: [facility] 12-15-2023 09:37-0400 Diastolic blood pressure 72 mm[Hg] Tammy Wood [employer] BO[employer]ER.SENIOR PLANNING MANAGER Work Phone: [facility] 12-15-2023 09:37-0400 Heart rate 60 /min Tammy Wood [employer] BO[employer]ER.SENIOR PLANNING MANAGER Work Phone: [facility] 12-15-2023 09:37-0400 Systolic blood pressure 104 mm[Hg] Tammy Wood [employer] BO[employer]ER.SENIOR PLANNING MANAGER Work Phone: [facility] 11-26-2023 13:10-0400 Body mass index (BMI) [Ratio] 51.65 kg/m2 Marcial Queen MD Work Phone: [facility] 11-26-2023 13:10-0400 Body temperature 96.69 [degF] Marcial Queen MD Work Phone: [facility] 11-26-2023 13:10-0400 Body weight 128.1 kg Marcial Queen MD Work Phone: [facility] 11-26-2023 13:10-0400 Diastolic blood pressure 86 mm[Hg] Marcial Queen MD Work Phone: [facility] Comment on above: [employer] 11-26-2023 13:10-0400 Heart rate 67 /min Marcial Queen MD Work Phone: [facility] 11-26-2023 13:10-0400 Systolic blood pressure 146 mm[Hg] Marcial Queen MD Work Phone: [facility] Comment on above: TAKEN [facility] 11-13-2023 09:16-0400 Body height 157.5 cm Heladio Crain Jr., DO Work Phone: [facility] 11-13-2023 09:16-0400 Body mass index (BMI) [Ratio] 50.28 kg/m2 Heladio Crain Jr., DO Work Phone: [facility] 11-13-2023 09:16-0400 Body temperature 96.6 [degF] Heladio Crain Jr., DO Work Phone: [facility] 11-13-2023 09:16-0400 Body weight 124.7 kg Heladio Crain Jr., DO Work Phone: [facility] 11-13-2023 09:16-0400 Diastolic blood pressure 78 mm[Hg] Heladio Crain Jr., DO Work Phone: [facility] 11-13-2023 09:16-0400 Heart rate 80 /min Heladio Crain Jr., DO Work Phone: [facility] 11-13-2023 09:16-0400 SaO2% (BldA) [Mass fraction] 99 % Heladio Crain Jr., DO Work Phone: [facility] 11-13-2023 09:16-0400 Systolic blood pressure 112 mm[Hg] Heladio Crain Jr., DO Work Phone: [facility] 11-12-2023 11:25-0400 Body temperature 97.59 [degF] Naz Whalen APRN.SENIOR PLANNING MANAGER Work Phone: [facility] 11-12-2023 11:25-0400 Diastolic blood pressure 82 mm[Hg] Naz Whalen APRN.SENIOR PLANNING MANAGER Work Phone: [facility] 11-12-2023 11:25-0400 Heart rate 77 /min Naz Whalen APRN.SENIOR PLANNING MANAGER Work Phone: [facility] 11-12-2023 11:25-0400 SaO2% (BldA) [Mass fraction] 100 % Naz Whalen [employer] BOILER.SENIOR PLANNING MANAGER Work Phone: [facility] 11-12-2023 11:25-0400 Systolic blood pressure 126 mm[Hg] Naz Whalen [employer] BOILER.SENIOR PLANNING MANAGER Work Phone: [facility] 10-29-2023 13:06-0400 Diastolic blood pressure 88 mm[Hg] Michael Hitchcock [employer] BO[employer]ER.SENIOR PLANNING MANAGER Work Phone: [facility] 10-29-2023 13:06-0400 Heart rate 66 /min Michael Hitchcock [employer] BO[employer]ER.SENIOR PLANNING MANAGER Work Phone: [facility] 10-29-2023 13:06-0400 Systolic blood pressure 127 mm[Hg] Michael Hitchcock [employer] BO[employer]ER.SENIOR PLANNING MANAGER Work Phone: [facility] 07-10-2023 14:20-0500 Body height 157.5 cm Heladio Crain Jr., DO Work Phone: [facility] 07-10-2023 14:20-0500 Body temperature 98.4 [degF] Heladio Crain Jr., DO Work Phone: [facility] 07-10-2023 14:20-0500 Body weight 129.1 kg Heladio Crain Jr., DO Work Phone: [facility] 07-10-2023 14:20-0500 Diastolic blood pressure 82 mm[Hg] Heladio Crain Jr., DO Work Phone: [facility] 07-10-2023 14:20-0500 Heart rate 65 /min Heladio Crain Jr., DO Work Phone: [facility] 07-10-2023 14:20-0500 SaO2% (BldA) [Mass fraction] 98 % Heladio Crain Jr., DO Work Phone: [facility] 07-10-2023 14:20-0500 Systolic blood pressure 121 mm[Hg] Heladio Crain Jr., DO Work Phone: [facility] 07-08-2023 14:09-0500 Body height 157.5 cm Joanie Fabianner [employer] BO[employer]ER.SENIOR PLANNING MANAGER Work Phone: [facility] 07-08-2023 14:09-0500 Body weight 130 kg Joanie Gonzalez [employer] BO[employer]ER.SENIOR PLANNING MANAGER Work Phone: [facility] 02-04-2023 09:35-0400 Diastolic blood pressure 85 mm[Hg] DO Vargas Malhotra Work Phone: [facility] 02-04-2023 09:35-0400 Heart rate 54 /min DO Vargas Malhotra Work Phone: [facility] 02-04-2023 09:35-0400 Respiratory rate 16 /min DO Varags Malhotra Work Phone: [facility] 02-04-2023 09:35-0400 SaO2% (BldA) [Mass fraction] 100 % DO Vargas Malhotra Work Phone: [facility] 02-04-2023 09:35-0400 Systolic blood pressure 138 mm[Hg] DO Vargas Malhotra Work Phone: [facility] 02-04-2023 07:33-0400 Body height 157.48 cm DO Vargas Malhotra Work Phone: [facility] 02-04-2023 07:33-0400 Body weight 111.13 kg DO Vargas Malhotra Work Phone: [facility] 01-30-2023 08:45-0400 Body weight 117.57 kg Richisa Cohoa [employer] BO[employer]ER.SENIOR PLANNING MANAGER Work Phone: [facility] 01-30-2023 08:45-0400 Diastolic blood pressure 82 mm[Hg] Lavisa Ochoa [employer] BO[employer]ER.SENIOR PLANNING MANAGER Work Phone: [facility] 01-30-2023 08:45-0400 Heart rate 63 /min Lavisa Ochoa [employer] BO[employer]ER.SENIOR PLANNING MANAGER Work Phone: [facility] 01-30-2023 08:45-0400 SaO2% (BldA) [Mass fraction] 99 % Kobe Ochoa [employer] BO[employer]ER.SENIOR PLANNING MANAGER Work Phone: [facility] 01-30-2023 08:45-0400 Systolic blood pressure 110 mm[Hg] Kobe Ochoa APRN.SENIOR PLANNING MANAGER Work Phone: [facility] 01-26-2023 10:03-0400 Body height 157.5 cm Pacc 2 Work Phone: [facility] 01-26-2023 10:03-0400 Body weight 115.67 kg Pacc 2 Work Phone: [facility] 01-26-2023 10:03-0400 Heart rate 76 /min Pacc 2 Work Phone: [facility] 01-26-2023 10:03-0400 Respiratory rate 17 /min Pacc 2 Work Phone: [facility] 12-30-2022 14:07-0400 Body height 157.5 cm Heladio Crain Jr., DO Work Phone: [facility] 12-30-2022 14:07-0400 Body temperature 98.49 [degF] Heladio Crain Jr., DO Work Phone: [facility] 12-30-2022 14:07-0400 Body weight 114.31 kg Heladio Crain Jr., DO Work Phone: [facility] 12-30-2022 14:07-0400 Diastolic blood pressure 78 mm[Hg] Heladio Crain Jr., DO Work Phone: [facility] 12-30-2022 14:07-0400 Heart rate 82 /min Heladio Crain Jr., DO Work Phone: [facility] 12-30-2022 14:07-0400 SaO2% (BldA) [Mass fraction] 97 % Heladio Crain Jr., DO Work Phone: [facility] 12-30-2022 14:07-0400 Systolic blood pressure 121 mm[Hg] Heladio Crain Jr., DO Work Phone: [facility] 12-23-2022 09:24-0400 Blood Pressure Location NERI SIDELL [facility] 12-23-2022 09:24-0400 Body temperature 98.6 [degF] NERI SIDELL [facility] 12-23-2022 09:24-0400 Diastolic blood pressure 70 mm[Hg] NERI SIDELL [facility] 12-23-2022 09:24-0400 Heart rate 59 /min NERI SIDELL [facility] 12-23-2022 09:24-0400 SaO2% (BldA) [Mass fraction] 99 % NERI SIDELL [facility] 12-23-2022 09:24-0400 Systolic blood pressure 100 mm[Hg] NERI SIDELL [facility] 12-18-2022 07:39-0400 Body height 157.48 cm DO Vargas Gonzalez Work Phone: [facility] 12-18-2022 07:39-0400 Body weight 111.13 kg DO Vargas Malhotra Work Phone: [facility] 12-15-2022 10:09-0400 Diastolic blood pressure 83 mm[Hg] Reid Mora MD Work Phone: [facility] 12-15-2022 10:09-0400 Systolic blood pressure 131 mm[Hg] Reid Mora MD Work Phone: [facility] 12-15-2022 09:57-0400 Body height 157.5 cm Reid Mora MD Work Phone: [facility] 12-15-2022 09:57-0400 Body weight 110.9 kg Reid Mora MD Work Phone: [facility] 12-15-2022 09:57-0400 Heart rate 59 /min Reid Mora MD Work Phone: [facility] 12-15-2022 09:57-0400 Respiratory rate 18 /min Reid Mora MD Work Phone: [facility] 12-15-2022 09:57-0400 SaO2% (BldA) [Mass fraction] 99 % Reid Mora MD Work Phone: [facility] 11-12-2022 11:36-0400 Body weight 110.68 kg Aram Rogers DO Work Phone: [facility] 11-12-2022 11:36-0400 Diastolic blood pressure 84 mm[Hg] Aram Rogers DO Work Phone: [facility] 11-12-2022 11:36-0400 Heart rate 68 /min Aram Rogers DO Work Phone: [facility] 11-12-2022 11:36-0400 SaO2% (BldA) [Mass fraction] 100 % Aram Rogers DO Work Phone: [facility] 11-12-2022 11:36-0400 Systolic blood pressure 134 mm[Hg] Aram Rogers DO Work Phone: [facility] 11-10-2022 19:13-0400 Diastolic blood pressure 81 mm[Hg] [facility] 11-10-2022 19:13-0400 Heart rate 60 /min [facility] 11-10-2022 19:13-0400 Mean blood pressure 98 mm[Hg] [facility] 11-10-2022 19:13-0400 Respiratory rate 19 /min [facility] 11-10-2022 19:13-0400 SaO2% (BldA) [Mass fraction] 100 % [facility] 11-10-2022 19:13-0400 Systolic blood pressure 133 mm[Hg] [facility] 11-10-2022 18:25-0400 Diastolic blood pressure 76 mm[Hg] [facility] 11-10-2022 18:25-0400 Heart rate 60 /min [facility] 11-10-2022 18:25-0400 Mean blood pressure 95 mm[Hg] [facility] 11-10-2022 18:25-0400 Respiratory rate 22 /min [facility] 11-10-2022 18:25-0400 SaO2% (BldA) [Mass fraction] 100 % [facility] 11-10-2022 18:25-0400 Systolic blood pressure 133 mm[Hg] [facility] 11-10-2022 18:00-0400 Respiratory rate 21 /min [facility] 11-10-2022 17:30-0400 Diastolic blood pressure 90 mm[Hg] [facility] 11-10-2022 17:30-0400 Heart rate 64 /min [facility] 11-10-2022 17:30-0400 Respiratory rate 18 /min [facility] 11-10-2022 17:30-0400 SaO2% (BldA) [Mass fraction] 100 % [facility] 11-10-2022 17:30-0400 Systolic blood pressure 144 mm[Hg] [facility] 11-10-2022 17:01-0400 Body temperature 98.42 [degF] [facility] 11-10-2022 17:01-0400 Respiratory rate 18 /min [facility] 08-28-2022 08:05-0400 Blood Pressure Location Vargas GONZALEZ [facility] [place] 08-28-2022 08:05-0400 Body temperature 97.52 [degF] Vargas GONZALEZ [facility] 08-28-2022 08:05-0400 Diastolic blood pressure 80 mm[Hg] Vargas GONZALEZ [facility] 08-28-2022 08:05-0400 Heart rate 74 /min Vargas GONZALEZ [facility] 08-28-2022 08:05-0400 SaO2% (BldA) [Mass fraction] 99 % Vargas GONZALEZ [facility] 08-28-2022 08:05-0400 Systolic blood pressure 124 mm[Hg] Vargas GONZALEZ [facility] 07-24-2022 12:58-0500 Blood Pressure Location NERI SIDELL [facility] 07-24-2022 12:58-0500 Body temperature 98.06 [degF] NERI SIDELL [facility] 07-24-2022 12:58-0500 Diastolic blood pressure 86 mm[Hg] NERI SIDELL [facility] 07-24-2022 12:58-0500 Heart rate 75 /min NERI SIDELL [facility] 07-24-2022 12:58-0500 SaO2% (BldA) [Mass fraction] 98 % NERI SIDELL [facility] 07-24-2022 12:58-0500 Systolic blood pressure 138 mm[Hg] NERI SIDELL [facility] 01-13-2022 14:48-0400 Blood Pressure Location Vargas GONZALEZ [facility] 01-13-2022 14:48-0400 Body temperature 97.7 [degF] Vargas MALHOTRA [facility] 01-13-2022 14:48-0400 Diastolic blood pressure 84 mm[Hg] Vargas MALHOTRA [facility] 01-13-2022 14:48-0400 Heart rate 76 /min Vargas MALHOTRA [facility] 01-13-2022 14:48-0400 SaO2% (BldA) [Mass fraction] 93 % Vargas MALHOTRA [facility] 01-13-2022 14:48-0400 Systolic blood pressure 134 mm[Hg] Vargas MALHOTRA [facility] Encounters Encounter Date Encounter Type Care Provider Facility Start: 01-12-2025 ambulatory SHELL RO Facilit y:[facility] Start: 01-12-2025 End: 01-12-2025 Subsequent hospital visit by physician [facility] [employer] [address] (Lg Bore/1.5t) Radiology Comment on above: Hx of migraines [Z86 .69] Start: 01-11-2025 End: 01-11-2025 Telemedicine consultation with patient Michael Hitchcock JUSTINO Work Phone: Neurology Start: 01-11-2025 End: 01-13-2025 ambulatory Michael Hitchcock JUSTINO Work Phone: Neurology Comment on above: Chronic daily headac he (Primary Dx); Intractable chronic migraine without aura and without status migrainosus; Bilateral occipital neuralgia; Cervicalgia; Nummular headache; IIH (idiopathic intracranial hypertension) MRV Start: 01-02-2025 End: 01-02-2025 ambulatory VARGAS MALHOTRA [facility] Start: 01-02-2025 End: 01-02-2025 Subsequent hospital visit by physician [facility] Comment on above: Hemochromatosis, uns pecified hemochromatosis type Start: 12-30-2024 End: 12-30-2024 E-mail encounter from caregiver Chito Bard TOTH Work Phone: Pre Anesthesia Start: 12-30-2024 End: 12-30-2024 Admission to establishment [facility] Work Phone: Pre Anesthesia Start: 12-30-2024 End: 12-30-2024 Anesthesia consultation Naeemyaya Peña PA-C Work Phone: Pre Anesthesia Comment on above: Pre-Anesthesia Instr uctions Pre-op evaluation (P rimary Dx); Chronic migraine without aura, intractable, without status migrainosus; ANTHONY (obstructive sleep apnea); Class 3 severe obesity due to excess calories with serious comorbidity and body mass index (BMI) of 50.0 to 59.9 in adult (HCC); Anxiety and depression; Irritable bowel syndrome with diarrhea; Hereditary hemochromatosis Start: 12-30-2024 End: 12-30-2024 [facility] Work Phone: [facility] Work Phone: Start: 12-19-2024 End: 12-19-2024 ambulatory [facility] Start: 12-19-2024 End: 12-19-2024 Subsequent hospital visit by physician [facility] Comment on above: Hemochromatosis, uns pecified hemochromatosis type Start: 12-14-2024 End: 12-14-2024 ambulatory Gail Engel DO Work Phone: 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 [facility] Comment on above: IUD removal time/jordan e/location Start: 12-14-2024 End: 12-14-2024 E-mail encounter from caregiver Gail Ovi DO Work Phone: 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 [facility] Start: 12-13-2024 End: 12-13-2024 ambulatory Gail Engel DO Work Phone: 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 [facility] Comment on above: Visit Inquiry Start: 12-12-2024 End: 12-12-2024 ambulatory GAIL ENGEL Facility: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, subsequent encounter (Primary Dx) Start: 12-12-2024 End: 12-12-2024 [facility] Start: 12-12-2024 End: 12-12-2024 Subsequent hospital visit by physician [facility] Comment on above: Hemochromatosis, uns pecified hemochromatosis type Start: 12-06-2024 End: 12-06-2024 [facility] Start: 12-06-2024 End: 12-06-2024 Subsequent hospital visit by physician [facility] Comment on above: Hemochromatosis, uns pecified hemochromatosis type Start: 11-28-2024 End: 11-28-2024 [facility] Start: 11-28-2024 End: 11-28-2024 Subsequent hospital visit by physician [facility] Comment on above: Hemochromatosis, uns pecified hemochromatosis type Start: 11-23-2024 End: 11-23-2024 ambulatory [facility] Start: 11-23-2024 End: 11-23-2024 Subsequent hospital visit by physician M[facility] Infusion Chair 1 [facility] Comment on above: Hemochromatosis, uns pecified hemochromatosis type (Primary Dx) Start: 11-23-2024 End: 11-23-2024 Patient encounter procedure Patti Rutherford PA-C Work Phone: OB/Gynecology Comment on above: 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 Start: 11-21-2024 End: 11-21-2024 ambulatory [facility] Start: 11-21-2024 End: 11-21-2024 Subsequent hospital visit by physician [facility] Comment on above: Hemochromatosis, uns pecified hemochromatosis type Start: 11-14-2024 End: 11-14-2024 [facility] Start: 11-14-2024 End: 11-14-2024 Subsequent hospital visit by physician [facility] Comment on above: Hemochromatosis, uns pecified hemochromatosis type Start: 11-09-2024 End: 11-09-2024 ambulatory Cyndi K Harmony AYALA Work Phone: CB/Gynecology Comment on above: Labs Start: 10-31-2024 End: 10-31-2024 [facility] Start: 10-31-2024 End: 10-31-2024 Subsequent hospital visit by physician [facility] Comment on above: Hemochromatosis, uns pecified hemochromatosis type Start: 10-26-2024 End: 10-26-2024 [facility] Start: 10-26-2024 End: 10-26-2024 Subsequent hospital visit by physician [facility] Infusion Chair 3 [facility] Comment on above: Hemochromatosis, uns pecified hemochromatosis type (Primary Dx) Start: 10-25-2024 End: 10-25-2024 [facility] Start: 10-25-2024 End: 10-25-2024 Subsequent hospital visit by physician [facility] Comment on above: Hemochromatosis, uns pecified hemochromatosis type Start: 10-18-2024 End: 10-18-2024 [facility] Start: 10-18-2024 End: 10-18-2024 Subsequent hospital visit by physician [facility] Comment on above: Hemochromatosis, uns pecified hemochromatosis type Start: 09-30-2024 End: 09-30-2024 ambulatory Marya Wright Facility: [facility] Start: 09-30-2024 End: 09-30-2024 Patient encounter procedure Marya Wright [facility] Start: 09-30-2024 End: 10-02-2024 ambulatory [facility] Start: 09-30-2024 End: 10-02-2024 Subsequent hospital visit by physician Camden Hopper Ultrasound Room 2 [facility] Imaging Ultrasound Comment on above: RUQ pain Start: 09-29-2024 End: 09-29-2024 ambulatory CYNDI FREEDMAN Facility:[facility] Start: 09-27-2024 End: 09-27-2024 Telephone encounter Cyndi Freedman DO Work Phone: CB/Gynecology Comment on above: Patient Question Start: 09-23-2024 End: 09-23-2024 ambulatory [facility] Start: 09-23-2024 End: 09-23-2024 Subsequent hospital visit by physician [facility] Comment on above: Hair loss; Iron deficiency; Acquired hypothyroidism; Metabolic syndrome Start: 08-17-2024 End: 08-18-2024 Refill Oren Mills DO Work Phone: Neurology Comment on above: Refill Request Start: 06-29-2024 End: 06-29-2024 Telephone encounter Oren Mills DO Work Phone: Neurology Comment on above: Referral Request Start: 06-21-2024 End: 06-21-2024 [facility] Start: 06-21-2024 End: 06-21-2024 Subsequent hospital visit by physician [facility] Comment on above: Urinary frequency; Impaired fasting glucose Start: 06-03-2024 End: 06-16-2024 Follow-up encounter Oren Mills DO Work Phone: Neurology Comment on above: Follow up question Start: 06-03-2024 End: 06-16-2024 ambulatory Shell Ro PA-C Work Phone: [facility] Comment on above: Hx of migraines (Elisa naeem Dx); IIH (idiopathic intracranial hypertension) MRI Start: 06-03-2024 End: 06-03-2024 Telemedicine consultation with patient Shell Ro PA-C Work Phone: [facility] Start: 06-02-2024 End: 06-02-2024 ambulatory Oren Mills DO Work Phone: Neurology Comment on above: Chronic daily headac he (Primary Dx); Intractable chronic migraine without aura and without status migrainosus; Chronic migraine without aura, intractable, without status migrainosus; Bilateral occipital neuralgia; Migraine without aura and without status migrainosus, not intractable; Cervicalgia; Nummular headache Start: 06-02-2024 End: 06-02-2024 Telemedicine consultation with patient Oren Palomo Phone: Neurology Start: 04-27-2024 End: 04-27-2024 Emergency department patient visit [facility] ED Comment on above: Acute cystitis with hematuria (Primary Dx) Start: 04-26-2024 End: 04-26-2024 ambulatory [facility] Start: 04-26-2024 End: 04-26-2024 Subsequent hospital visit by physician [facility] Comment on above: Dysuria Start: 04-18-2024 End: 04-19-2024 Telephone encounter Neurology [facility] Comment on above: Future Appointment ( New Patient [place] Any) Start: 04-11-2024 End: 04-11-2024 ambulatory [facility] Start: 04-11-2024 End: 04-11-2024 Subsequent hospital visit by physician Caitlin [facility] Start: 04-06-2024 End: 04-06-2024 ambulatory [facility] Start: 04-06-2024 End: 04-06-2024 Subsequent hospital visit by physician Stephen [facility] Start: 03-30-2024 End: 03-30-2024 ambulatory [facility] Start: 03-30-2024 End: 03-30-2024 Subsequent hospital visit by physician Stephen [facility] Start: 03-28-2024 End: 03-28-2024 ambulatory [facility] Start: 03-28-2024 End: 03-28-2024 Subsequent hospital visit by physician Vivi [facility] Start: 03-23-2024 End: 03-23-2024 ambulatory [facility] Start: 03-23-2024 End: 03-23-2024 Subsequent hospital visit by physician Marci Bee PT [facility] Start: 03-21-2024 End: 03-21-2024 Subsequent hospital visit by physician Vivi Trejo SUPERVISOR [employer] [facility] Start: 03-21-2024 ambulatory [facility] Start: 03-17-2024 End: 03-17-2024 ambulatory [facility] Start: 03-17-2024 End: 03-17-2024 Subsequent hospital visit by physician Arlene Smith [employer]PER[employer]OR [employer] [facility] Start: 03-14-2024 End: 03-31-2024 ambulatory Oren Mills DO Work Phone: Neurology Comment on above: Topiramate Start: 03-08-2024 End: 03-08-2024 [facility] Start: 03-08-2024 End: 03-08-2024 Subsequent hospital visit by physician Woody Garcia MD Work Phone: [facility] Comment on above: Acute medial meniscu s tear of right knee, subsequent encounter (Primary Dx) Start: 03-02-2024 End: 03-02-2024 ambulatory OREN MILLS Facility:[facility] Start: 03-02-2024 End: 03-02-2024 Subsequent hospital visit by physician Mri [facility] [place] (Lg Bore/1.5t) Radiology MRI Comment on above: IIH (idiopathic intr acranial hypertension) [G93.2] Start: 02-23-2024 End: 02-23-2024 ambulatory LLUVIA GRAY Facility:[facility] Start: 02-23-2024 End: 02-23-2024 Patient encounter procedure Lluvia Gray MD Work Phone: Cardiology Comment on above: Pre-operative cardio vascular examination (Primary Dx); Atypical chest pain Start: 02-23-2024 End: 02-23-2024 Patient encounter status Lluvia Gray MD Work Phone: [facility] Work Phone: Start: 02-18-2024 End: 02-19-2024 ambulatory MARCIAL QUEEN Facility:[facility] Start: 02-18-2024 End: 02-19-2024 Office outpatient visit 25 minutes Marcial Queen MD Work Phone: Rheumatology Comment on above: Dye antibody posit jillian (Primary Dx); Malaise and fatigue; Polymyalgia (HCC); Pain in joint, multiple sites Start: 02-16-2024 End: 02-16-2024 ambulatory CYNDI FREEDMAN Facility:[facility] Start: 02-16-2024 End: 02-16-2024 Patient encounter procedure Cyndi Freedman DO Work Phone: CB/Gynecology Comment on above: Encounter for gyneco logical examination without abnormal finding (Primary Dx); Intrauterine contraceptive device threads lost, subsequent encounter Start: 02-16-2024 End: 02-16-2024 Patient encounter status Cyndi Freedman DO Work Phone: [facility] Work Phone: Start: 02-15-2024 End: 02-15-2024 ambulatory MARCIAL QUEEN Facility:[facility] Start: 02-12-2024 End: 02-12-2024 ambulatory WO[facility] Start: 02-10-2024 End: 02-10-2024 ambulatory [facility] Start: 02-09-2024 End: 02-09-2024 ambulatory VALDEZ REYES Facility:[facility] Start: 02-09-2024 End: 02-09-2024 Patient encounter procedure Valdez Reyes MD Work Phone: Orthopaedics Comment on above: Complex tear of medi al meniscus of right knee as current injury, initial encounter (Primary Dx); Primary osteoarthritis of right knee Start: 02-05-2024 End: 02-05-2024 Telephone encounter Michael Hitchcock APRN.CNP Work Phone: Neurology Comment on above: Referral Request Start: 02-04-2024 End: 02-04-2024 ambulatory OREN MLILS Facility:[facility] Start: 02-04-2024 End: 02-04-2024 Patient encounter procedure Michael Hitchcock SENIOR PLANNING MANAGER Work Phone: Neurology Comment on above: Chronic migraine wit hout aura, intractable, without status migrainosus (Primary Dx) Start: 02-03-2024 End: 02-03-2024 [facility] Start: 02-02-2024 End: 02-02-2024 E-mail encounter from caregiver Elie Alfred PA-C Work Phone: Orthopaedics Start: 02-02-2024 End: 02-02-2024 Patient encounter procedure Elie Alfred PA-C Work Phone: Orthopaedics Comment on above: Appointment on 02/07 Start: 01-27-2024 End: 01-27-2024 [facility] Start: 01-21-2024 End: 01-21-2024 ambulatory TIERRA ROJAS Facility:[facility] Start: 01-21-2024 End: 01-21-2024 Patient encounter procedure Tierra Rojas OD Work Phone: Ophthalmology Comment on above: IIH (idiopathic intr acranial hypertension) (Primary Dx); Myopia of both eyes with astigmatism Start: 01-20-2024 End: 01-20-2024 [facility] Start: 01-20-2024 End: 01-20-2024 Subsequent hospital visit by physician Vivi [facility] Start: 01-15-2024 End: 01-19-2024 Telephone encounter Cyndi Freedman DO Work Phone: CB/Gynecology Comment on above: Appointment (Schedul e appo) Start: 01-14-2024 End: 01-14-2024 Telephone encounter Marcial Queen MD Work Phone: Rheumatology Start: 01-14-2024 End: 01-14-2024 Patient encounter procedure Cyndi Freedman DO Work Phone: CB/Gynecology Comment on above: Pelvic pain in femal e (Primary Dx); Hydrosalpinx Start: 01-13-2024 End: 01-13-2024 ambulatory [facility] Start: 01-07-2024 End: 01-07-2024 ambulatory Marcial Queen MD Work Phone: Rheumatology Comment on above: Shortness of breath (Primary Dx); Pleurisy; Dye antibody positive; Malaise and fatigue; Positive GUILLE (antinuclear antibody); Polymyalgia (HCC); Pain in joint, multiple sites Start: 01-07-2024 End: 01-07-2024 Telemedicine consultation with patient Marcial Queen MD Work Phone: Rheumatology Start: 01-06-2024 End: 01-06-2024 ambulatory [facility] Start: 01-06-2024 End: 01-06-2024 Subsequent hospital visit by physician Neyda [facility] Start: 01-05-2024 End: 01-06-2024 ambulatory Tammy Coffman APRN.SENIOR PLANNING MANAGER Work Phone: CB/Gynecology Comment on above: Results Start: 01-05-2024 End: 01-05-2024 Patient encounter procedure Database Tester [facility] Ultrasound Provider Work Phone: OB/Gynecology Comment on above: Arrived Start: 12-28-2023 End: 12-28-2023 Subsequent hospital visit by physician Vivi Trejo PTA [facility] Start: 12-24-2023 End: 12-24-2023 Subsequent hospital visit by physician Vivi Trejo [facility]TA [facility] Start: 12-22-2023 End: 12-22-2023 Subsequent hospital visit by physician Arlene Smith PTA [facility] Start: 12-15-2023 End: 12-15-2023 Patient encounter procedure Tammy Coffman APRN.SENIOR PLANNING MANAGER Work Phone: CB/Gynecology Comment on above: Pelvic pain in femal e (Primary Dx); IUD (intrauterine device) in place; Vaginal discharge Start: 12-08-2023 End: 12-10-2023 ambulatory Princess Bruce MD Work Phone: [facility] Comment on above: Weight Loss Start: 12-01-2023 End: 12-01-2023 Subsequent hospital visit by physician Zayda Prep [facility] Radiology Ct Scan Comment on above: Generalized abdomina l pain [R10.84] Start: 11-30-2023 Telephone encounter Marcial pineda MD Work Phone: Rheumatology Comment on above: Dr Queen's follow u p appointment to review lab results Start: 11-27-2023 Telephone encounter Heladio kirk DO Work Phone: Gastroenterology Comment on above: Appointment Start: 11-26-2023 End: 11-26-2023 Office outpatient new 60 minutes Marcial Queen MD Work Phone: Rheumatology Comment on above: Positive GUILLE (antinu clear antibody) (Primary Dx); Autoimmune disease (HCC); Arthralgia, unspecified joint; Malaise and fatigue; Polymyalgia (HCC); Polyarthralgia; Class 3 severe obesity due to excess calories with serious comorbidity and body mass index (BMI) of 50.0 to 59.9 in adult (HCC); Right knee pain, unspecified chronicity Start: 11-17-2023 Telephone encounter Heladio kirk DO Work Phone: Gastroenterology Comment on above: Results Start: 11-13-2023 End: 11-13-2023 Patient encounter procedure Heladio Crain DO Work Phone: Gastroenterology Comment on above: Irritable bowel synd satnam with diarrhea (Primary Dx); Generalized abdominal pain; Gastroesophageal reflux disease with esophagitis without hemorrhage; Autoimmune disease (HCC) Start: 11-12-2023 End: 11-12-2023 Office outpatient visit 25 minutes Naz Whalen APRN.SENIOR PLANNING MANAGER Work Phone: [facility] Comment on above: Sensation of pressur e in bladder area (Primary Dx) Start: 11-03-2023 End: 11-05-2023 Subsequent hospital visit by physician Juan Ball MD Work Phone: [facility] Radiology Comment on above: Dyspnea, unspecified type Start: 10-29-2023 End: 10-29-2023 Patient encounter procedure Mohammad Hamdan LIME BOILER.SENIOR PLANNING MANAGER Work Phone: Neurology Comment on above: Chronic migraine wit hout aura, intractable, without status migrainosus (Primary Dx) Start: 09-29-2023 ambulatory Heladio Phan Bernardreagan DO Work Phone: Gastroenterology Comment on above: Medication Start: 09-28-2023 Telephone encounter Oren Schulte on DO Work Phone: [facility] Comment on above: Insurance Authorizat ion ([place] delayed-Additional information needed) Start: 09-07-2023 ambulatory Aram Rogers DO Work Phone: Cardiology Comment on above: Low cardio reasing Start: 08-26-2023 End: 08-26-2023 ambulatory Lin Barton PT Work Phone: [facility] Comment on above: Chronic neck pain (P rimary Dx); Chronic bilateral thoracic back pain Start: 08-10-2023 Telephone encounter Tierra hernandez OD Work Phone: Ophthalmology Comment on above: Medial release autho rization Start: 07-29-2023 End: 07-29-2023 ambulatory Princess Bruce MD Work Phone: [facility] Comment on above: Class 3 severe obesi ty due to excess calories with serious comorbidity and body mass index (BMI) of 50.0 to 59.9 in adult (HCC) (Primary Dx); ANTHONY (obstructive sleep apnea) Start: 07-29-2023 Follow-up encounter Katarina viera DO Work Phone: Neurology Comment on above: Follow Up Start: 07-29-2023 End: 07-29-2023 Telemedicine consultation with patient Princess Bruce MD Work Phone: [facility] Start: 07-27-2023 End: 07-27-2023 ambulatory Lin Barton [facility] Comment on above: Chronic neck pain; Chronic bilateral thoracic back pain Start: 07-17-2023 Telephone encounter Joanie delacruz LIME BOILER.SENIOR PLANNING MANAGER Work Phone: [facility] Comment on above: [employer] Start: 07-17-2023 End: 07-17-2023 Patient encounter procedure Tierra Rojas OD Work Phone: Ophthalmology Comment on above: Crowded optic disc, bilateral (Primary Dx); Chronic nonintractable headache, unspecified headache type Start: 07-16-2023 Telephone encounter Joanie delacruz LIME BOILER.SENIOR PLANNING MANAGER Work Phone: [facility] Comment on above: [employer] Start: 07-15-2023 ambulatory Joanie Gonzalez LIME BOILER.SENIOR PLANNING MANAGER Work Phone: [facility] [place] Comment on above: Images Start: 07-10-2023 End: 07-10-2023 Patient encounter procedure Heladio Crain DO Work Phone: Gastgroenterology Comment on above: Gastroesophageal ref lux disease with esophagitis without hemorrhage (Primary Dx); Irritable bowel syndrome with both constipation and diarrhea Start: 07-08-2023 End: 07-08-2023 Patient encounter procedure Joanie Gonzalez LIME BOILER.SENIOR PLANNING MANAGER Work Phone: [facility] Comment on above: Chronic neck pain (P rimary Dx); Chronic bilateral thoracic back pain Start: 07-06-2023 End: 07-06-2023 ambulatory Katarina Karimi DO Work Phone: Neurology Comment on above: Paresthesia of skin (Primary Dx); Chronic nonintractable headache, unspecified headache type; Episodic lightheadedness; IIH (idiopathic intracranial hypertension); Sweating abnormality; Early satiety Start: 07-06-2023 End: 07-06-2023 Telemedicine consultation with patient Katarina Karimi DO Work Phone: [facility] Start: 07-02-2023 Telephone encounter Neurology Provid er Neurology Comment on above: Received Outside [facility] Records (External referral to [facility]rological [place]/) Start: 05-04-2023 ambulatory Heladio Crain DO Work Phone: Gastgroenterology Comment on above: Scope Start: 02-10-2023 ambulatory Kobe Ochoa APRN.SENIOR PLANNING MANAGER Work Phone: Cardiology Comment on above: Nuclear Stress Test Start: 02-06-2023 Telephone encounter Heladio kirk DO Work Phone: [facility] Comment on above: Patient Question Start: 02-04-2023 End: 02-04-2023 ambulatory DO Vargas Malhotra Work Phone: [facility] Work Phone: Start: 02-04-2023 End: 02-04-2023 Patient encounter procedure DO Vargas Malhotra Work Phone: [facility] [place] Work Phone: Start: 01-30-2023 End: 01-30-2023 ambulatory DO Vargas Malhotra Work Phone: [facility] Work Phone: Start: 01-30-2023 End: 01-30-2023 Patient encounter procedure DO Vargas Malhotra Work Phone: [facility] [place] Work Phone: Start: 01-30-2023 End: 01-30-2023 ambulatory Neyda Lee Facility:[facility] Start: 01-30-2023 End: 01-30-2023 ambulatory DO Vargas Malhotra Work Phone: [facility] Work Phone: Start: 01-30-2023 End: 01-30-2023 Patient encounter procedure DO Vargas Malhotra Work Phone: [facility] [place] Work Phone: Comment on above: SOB (shortness of br eath) (Primary Dx); Chest pain, unspecified type; Abnormal stress test; Premature atrial complexes; Abnormal electrocardiogram; Abnormal laboratory test result; Sinus bradycardia; Class 3 severe obesity due to excess calories with serious comorbidity and body mass index (BMI) of 40.0 to 44.9 in adult (HCC); History of sleep apnea Start: 01-26-2023 End: 01-26-2023 ambulatory [facility] Work Phone: Pre Anesthesia Comment on above: Pre-op evaluation (P rimary Dx); Hypothyroidism, unspecified type; Other specified diabetes mellitus without complication, without long-term current use of insulin (HCC); Obesity, Class III, BMI >= 40; Gastroesophageal reflux disease, unspecified whether esophagitis present; Other migraine without status migrainosus, not intractable; History of sleep apnea; Electronic cigarette use; Iron deficiency; Atypical chest pain Procedure Start: 01-26-2023 Telephone encounter Katlyn bills PA-C Work Phone: Pre Anesthesia Comment on above: Preparations For Pro cedures Start: 01-26-2023 End: 01-26-2023 Admission to establishment [facility] Work Phone: [facility] Start: 01-26-2023 End: 01-26-2023 Preprocedural examination done [facility] [place] [facility] Work Phone: [facility] Work Phone: Start: 01-13-2023 ambulatory [facility] Facilit y:[facility] Start: 01-13-2023 End: 01-13-2023 Subsequent hospital visit by physician [facility] Work Phone: [facility] Radiology Molecular Comment on above: Dyspepsia and disord er of function of stomach [K31.9, R10.13] Start: 01-12-2023 Telephone encounter Yoseph Maradiaga RT( R) [facility] Radiology Molecular Comment on above: Appointment Start: 01-05-2023 Telephone encounter Heladio kirk DO Work Phone: Gastroenterology Comment on above: Results Start: 12-30-2022 End: 12-30-2022 Patient encounter procedure Heladio Crain DO Work Phone: Gastgroenterology Comment on above: Gastroesophageal ref lux disease, unspecified whether esophagitis present (Primary Dx); Dyspepsia and disorder of function of stomach; Irritable bowel syndrome with diarrhea; RUQ pain Start: 12-23-2022 End: 12-23-2022 Patient encounter procedure NERI PASCALLL [facility] [place] Start: 12-18-2022 End: 12-18-2022 ambulatory Elie Lerner Facility:[facility] Start: 12-18-2022 End: 12-18-2022 ambulatory DO Vargas Malhotra Work Phone: [facility] Work Phone: Start: 12-18-2022 End: 12-18-2022 Patient encounter procedure DO Vargas Malhotra Work Phone: [facility] [place] Work Phone: Start: 12-17-2022 Refill Aram Rogers DO Work Phone: Cardiology Comment on above: Refill Request Start: 12-15-2022 End: 12-15-2022 Patient encounter procedure Reid Mora MD Work Phone: Cardiology Comment on above: Obesity, Class III, BMI >= 40 (Primary Dx); Precordial pain; Labile hypertension; Migraine without aura and with status migrainosus, not intractable Start: 11-25-2022 Telephone encounter Reid saul MD Work Phone: Cardiology Comment on above: Appointment Start: 11-19-2022 ambulatory Aramsanju Rogers DO Work Phone: Cardiology Comment on above: ECG Start: 11-12-2022 End: 11-12-2022 Patient encounter procedure Aram Rogers DO Work Phone: Cardiology Comment on above: SOB (shortness of br eath) (Primary Dx); Chest pain, unspecified type; Palpitations; Other fatigue; Sinus bradycardia; Class 3 severe obesity due to excess calories with serious comorbidity and body mass index (BMI) of 40.0 to 44.9 in adult (HCC) Start: 11-12-2022 End: 11-12-2022 Emergency department patient visit VARGAS MALHOTRA Facility:[facility] Start: 11-10-2022 End: 06-26-2023 Emergency department patient visit [facility] Start: 10-14-2022 End: 10-14-2022 ambulatory MAGED [facility] Start: 08-28-2022 End: 08-28-2022 Patient encounter procedure Vargas MALHOTRA [facility] Start: 07-24-2022 End: 07-24-2022 Patient encounter procedure NERI BALDWIN [facility] Start: 07-04-2022 End: 07-04-2022 Patient encounter procedure Tierra Emilie Nasim OD Work Phone: Ophthalmology Comment on above: Myopia of both eyes with astigmatism (Primary Dx) Start: 06-25-2022 End: 06-25-2022 Patient encounter procedure Tierra Rojas OD Work Phone: Ophthalmology Comment on above: Myopia, bilateral (P rimary Dx); Wears contact lenses Start: 05-31-[address] JULIEN ARTHUR Facility :[facility] Start: 01-13-2022 End: 01-13-[address] JULIEN ARTHUR Facility:[facility] Start: 01-13-2022 End: 01-13-2022 Patient encounter procedure Vargas MALHOTRA [facility] Start: 01-13-2022 End: 01-13-2022 Well adult monitoring check done Vargas MALHOTRA [facility] Start: 01-10-2022 End: 01-11-[address] VARGAS MALHOTRA Facility:[facility] Start: 10-16-2021 End: 11-02-[address] VARGAS MALHOTRA Facility:[facility] Procedures Date Procedure Procedure Detail Performing Clinician Start: 01-12-2025 Mri brain brain stem w/o contrast material Shell Ro PA-C Work Phone: Start: 01-02-2025 Blood count hemoglobin Vargas Malhotra DO Work Phone: Start: 12-19-2024 Blood count hemoglobin Vargas Malhotra DO Work Phone: Start: 12-12-2024 Blood count hemoglobin Vargas Malhotra DO Work Phone: Start: 12-06-2024 Blood count hemoglobin Vargas Malhotra DO Work Phone: Start: 11-28-2024 Blood count hemoglobin Vargas Malhotra DO Work Phone: Start: 11-21-2024 Blood count hemoglobin Vargas Malhotra DO Work Phone: Start: 11-14-2024 End: 11-14-2024 Blood count hemoglobin Vargas Malhotra D O Work Phone: Start: 10-31-2024 Blood count hemoglobin Vargas Malhotra DO Work Phone: Start: 10-25-2024 Blood count hemoglobin Vargas Malhotra DO Work Phone: Start: 10-18-2024 Blood count hemoglobin Vargas Malhotra DO Work Phone: Start: 09-30-2024 Us abdominal real ti me w/image limited Vargas Malhotra DO Work Phone: Start: 09-23-2024 Comprehensive metabo lic panel Vargas Malhotra DO Work Phone: Start: 06-21-2024 Urnls dip stick/tabl et rgnt auto w/o microscopy Vargas Malhotra DO Work Phone: Start: 06-21-2024 Hemoglobin glycosylated a1c Vargas Malhotra DO Work Phone: Start: 04-27-2024 Urinalysis microscopic only Gauri Johnson MD Work Phone: Start: 04-27-2024 Urnls dip stick/tabl et rgnt auto w/o microscopy Gauri Johnson MD Work Phone: Start: 04-26-2024 Urnls dip stick/tabl et rgnt auto w/o microscopy Vargas Malhotra DO Work Phone: Start: 03-02-2024 Mra head w/o contrst material Oren Mills DO Work Phone: Start: 02-23-2024 Ecg routine ecg w/le ast 12 lds i&r only [facility] Provider Start: 01-21-2024 Computerized ophthal shirley imaging optic nerve Tierra Rojas OD Work Phone: Start: 01-05-2024 Us pelvic nonobstetr ic real-time image complete Tammy Coffman LIME BOILER.SENIOR PLANNING MANAGER Work Phone: Start: 11-12-2023 Urnls dip stick/tabl et rgnt auto w/o microscopy Naz Whalen LIME BOILER.SENIOR PLANNING MANAGER Work Phone: Start: 11-03-2023 Radiologic exam ches t 2 views Juan Ball MD Work Phone: Start: 07-17-2023 End: 07-17-2023 Visual field xm uni/bi w/interp extended exam Tierra Rojas OD Work Phone: Start: 02-04-2023 Investigation of transfusion reaction DO Vargas Malhotra Work Phone: Start: 01-30-2023 XR pre/post mri xray DO Vargas Malhotra Work Phone: Start: 01-30-2023 MRI of cervical spin e with contrast DO Vargas Malhotra Work Phone: Start: 01-30-2023 MRI of thoracic spin e with contrast DO Vargas Malhotra Work Phone: Start: 01-13-2023 Hepatobil syst imag inc gb w/pharma intervenj Heladio Crain DO Work Phone: Start: 12-18-2022 MRI of head DO Vargas Malhotra Work Phone: Start: 11-12-2020 Colonoscopy Vargas MACKEY Start: 11-12-2020 Endoscopy and biopsy of upper gastrointestinal tract Vargas MALHOTRA C Section 1 Vargas GONZALEZ Comment on above: 08/2014 Laboratory test resu lt abnormal Abnormal laboratory test result Kobe Ochoa APRN.SENIOR PLANNING MANAGER Work Phone: Tonsillectomy Vargas MALHOTRA Plan of Treatment Date Care Activity Detail Author Start: 02-15-2029 Screening for malignant neoplasm of cervix Cervical Cancer Screening [facility] Start: 01-13-2027 Screening for malignant neoplasm of cervix [facility] Start: 06-22-2025 Depression Monitoring Depression Monitoring [facility] Start: 06-21-2025 Hemoglobin A1c measurement A1C test (Diabetic or Prediabetic) [facility] Start: 05-08-2025 End: 05-08-2025 Patient encounter procedure 05/08/2025 11:30 AM EST Office Visit Functional Medicine [address] [place] [address] Marci Carias PA-C [address] [place] [address] health concerns Functional Medicine Comment on above: health concerns Start: 03-24-2025 End: 03-24-2025 Patient encounter procedure [facility] Comment on above: Annual Physical Start: 01-20-2025 Glaucoma screening Dilated Retinal Exam [facility] Start: 01-20-2025 End: 01-20-2025 Patient encounter procedure 01/20/2025 8:00 AM EDT Office Visit [facility] Ophthalmology [address] [place] [address] Tierra Rojas, OD [address] [facility] [place] [address] visual field, dilate, NOCT 6 months, contact lens evaluation at that visit or sooner if she needs Ophthalmology Comment on above: visual field, dilate, NOCT 6 months, con tact lens evaluation at that visit or sooner if she needs Start: 01-16-2025 Influenza vaccination [facility] Start: 01-13-2025 End: 01-13-2025 Admission to same day surgery center 01/13/2025 7:30 AM EDT - 01/13/2025 8:30 AM EDT Surgery [facility] [address] [place] [address] Gail Engel DO [address] [place] [address] REMOVE IUD NON EMBEDDED W/ HYSTEROSCOPY [facility] Comment on above: REMOVE IUD NON EMBEDDED W/ HYSTEROSCOPY Start: 01-13-2025 Subsequent hospital visit by physician 01/13/2025 7:30 AM EDT Hospital Encounter [facility] [address] [place] [address] Gail Engel DO [address] [place] [address] Intrauterine contraceptive device threads lost, subsequent encounter [T83.32XD] [facility] Comment on above: Intrauterine contraceptive device thread s lost, subsequent encounter [T83.32XD] Start: 01-13-2025 End: 01-13-2025 Unlisted hysteroscopy procedure uterus [facility] OR Start: 01-12-2025 End: 01-12-2025 Patient encounter procedure 01/12/2025 3:00 PM EDT Appointment Radiology [address] [place] [id number] MRI BRAIN WO IVCON [31332 (CPT )] Radiology Comment on above: MRI BRAIN WO IVCON [65186 (CPT )] Start: 12-30-2024 End: 12-30-2024 Anesthesia consultation 12/30/2024 10:00 AM EDT PAT Pre Anesthesia [address] [place] [address] Virtual, Pacc [place] [address] [place] [address] VV: Pre Anesthesia Comment on above: VV: Start: 12-19-2024 Hemoglobin A1c measurement HbA1C [facility] Start: 12-16-2024 Influenza vaccination [facility] Start: 12-12-2024 End: 12-12-2024 Patient encounter procedure 12/12/2024 2:00 PM EDT 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 [facility] [address] [place] [address] Gail Engel DO [address] [facility] [place] [address] Intrauterine contraceptive device threads lost, subsequent encounter [T83.32XD] 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 [facility] Comment on above: Intrauterine contraceptive device thread s lost, subsequent encounter [T83.32XD] Start: 11-23-2024 End: 11-23-2024 Patient encounter procedure 11/23/2024 2:30 PM EDT Appointment [facility] [address] [place] [address] epic//pt [facility] Comment on above: epic//pt Start: 11-22-2024 End: 11-22-2024 Patient encounter procedure 11/22/2024 2:00 PM EDT Office Visit CB/Gynecology [address] [place] [address] [place], [place] [id number] [place] [address] [place] [address] Encounter for IUD removal [Z30.432] CB/Gynecology Comment on above: Encounter for IUD removal [Z30.432] Start: 11-16-2024 End: 11-16-2024 Patient encounter procedure 11/16/2024 2:30 PM EDT Appointment [facility] [address] [place] [address] epic//pt [facility] Comment on above: epic//pt Start: 11-09-2024 End: 11-09-2024 Patient encounter procedure 11/09/2024 2:30 PM EDT Appointment [facility] [address] [place] [address] epic//pt [facility] Comment on above: epic//pt Start: 11-02-2024 End: 11-02-2024 Patient encounter procedure 11/02/2024 2:30 PM EDT Appointment [facility] [address] [place] [address] epic//pt [facility] Comment on above: epic//pt Start: 10-26-2024 End: 10-26-2024 Patient encounter procedure 10/26/2024 2:00 PM EDT Appointment [facility] [address] [place] [address] epic//pt [facility] Comment on above: epic//pt Start: 10-11-2024 End: 10-11-2024 Telemedicine consultation with patient 10/11/2024 3:15 PM EDT Telemedicine [facility] [address] [place] [address] Vargas Malhotra DO [address] [place] [address] 2 wk f/u [facility] Comment on above: 2 wk f/u Start: 09-29-2024 End: 09-29-2024 Manual pelvic examination 09/29/2024 9:00 AM EDT Procedure Obstetrics/Gynecology [address] [place] [address] Remote, Database Tester [facility] [address] [place] [address] Pelvic pain in female [R10.2] Obstetrics/Gynecology Comment on above: Pelvic pain in female [R10.2] Start: 09-27-2024 End: 09-27-2024 Patient encounter procedure 09/27/2024 8:15 AM EDT Office Visit [facility] [address] [place] [address] Vargas Malhotra DO [address] [place] [address] Right flank pain & hair loss [facility] Comment on above: Right flank pain & hair loss Start: 08-26-2024 End: 08-26-2024 Patient encounter procedure Gastroenterology Comment on above: 3 months follow-up Start: 08-04-2024 End: 08-04-2024 Patient encounter procedure 08/04/2024 3:15 PM EDT Office Visit Neurology [address] [place] [address] Michael Hitchcock APRN.SENIOR PLANNING MANAGER [address] [place] [address] Botox Neurology Comment on above: Botox Start: 07-30-2024 Hepatitis B surface antibody level LDL Cholesterol [facility] Start: 07-16-2024 Glaucoma screening Dilated Retinal Exam [facility] Start: 07-08-2024 End: 07-08-2024 Patient encounter procedure OB/Gynecology Comment on above: Pelvic pain in female [R10.2] Start: 06-30-2024 End: 06-30-2024 Patient encounter procedure 06/30/2024 11:30 AM EST Office Visit Cardiology [address] [place] [address] Aram Rogers DO [address] [place] [address] f/u with Dr Rogers next available Cardiology Comment on above: f/u with Dr Rogers next available Start: 06-24-2024 End: 06-24-2024 ambulatory 06/24/2024 3:30 PM EST [facility] Neurology [address] [address] Oren Mills DO [address] [place] [address] F/u Neurology Comment on above: F/u Start: 06-22-2024 End: 06-22-2024 Patient encounter procedure 06/22/2024 8:30 AM EST Office Visit [facility] [address] [place] [address] Vargas Malhotra DO [address] [place] [address] Worsening abdominal and lower back pain and swelling. [facility] Comment on above: Worsening abdominal and lower back pain and swelling. Start: 06-10-2024 End: 06-10-2024 Patient encounter procedure 06/10/2024 8:15 AM EST Office Visit [facility] [address] [facility] [address] [place] [address] Juan Ball MD [address] [facility] [address] [place] [address] 3M F/U [facility] Comment on above: 3M F/U Start: 06-03-2024 End: 06-03-2024 ambulatory 06/03/2024 9:30 AM [facility] [address] [place] [address] Shell Ro PA-C [address] [place] [address] Patient not appropriate for our department specialty at this time, per chart review, patient is to see JANEY Mcgarry who will then refer patient back to us if necessary as we're more than happy to see her~ [facility] Comment on above: Patient not appropriate for our departme nt specialty at this time, per chart review, patient is to see JANEY Mcgarry who will then refer patient back to us if necessary as we're more than happy to see her~ Start: 06-02-2024 End: 06-02-2024 Follow-up encounter 06/02/2024 1:40 PM EST [facility] Neurology [address] [address] Oren Mills DO [address] [place] [address] Follow up - headaches Neurology Comment on above: Follow up - headaches Start: 05-25-2024 Depression Monitoring Depression Monitoring [facility] Start: 05-18-2024 End: 08-17-2024 CBC W Auto Differential panel - Blood COMPLETE BLOOD COUNT AND DIFFERENTIAL Lab Routine Dye antibody positive Malaise and fatigue Polymyalgia (HCC) Pain in joint, multiple sites Expected: 05/18/2024, Expires: 08/17/2024 [facility] Work Phone: Comment on above: Expected: 05/18/2024, Expires: Start: 05-18-2024 End: 08-17-2024 Complement C3 [Mass/volume] in Serum or Plasma C3 COMPLEMENT Lab Routine Dye antibody positive Malaise and fatigue Polymyalgia (HCC) Pain in joint, multiple sites Expected: 05/18/2024, Expires: 08/17/2024 [facility] Comment on above: Expected: 05/18/2024, Expires: Start: 05-18-2024 End: 08-17-2024 Complement C4 [Mass/volume] in Serum or Plasma C4 COMPLEMENT Lab Routine Dye antibody positive Malaise and fatigue Polymyalgia (HCC) Pain in joint, multiple sites Expected: 05/18/2024, Expires: 08/17/2024 [facility] Comment on above: Expected: 05/18/2024, Expires: Start: 05-18-2024 End: 08-17-2024 Comprehensive metabolic 2000 panel - Serum or Plasma COMPREHENSIVE METABOLIC PANEL Lab Routine Dye antibody positive Malaise and fatigue Polymyalgia (HCC) Pain in joint, multiple sites Expected: 05/18/2024, Expires: 08/17/2024 [facility] Comment on above: Expected: 05/18/2024, Expires: Start: 05-18-2024 End: 08-17-2024 DNA double strand Ab [Presence] in Serum by Immunofluorescence (IF) Crithidia luciliae CRITHIDIA LUCILIAE Lab Routine Dye antibody positive Malaise and fatigue Polymyalgia (HCC) Pain in joint, multiple sites Expected: 05/18/2024, Expires: 08/17/2024 [facility] Comment on above: Expected: 05/18/2024, Expires: Start: 05-18-2024 End: 08-17-2024 DNA double strand Ab [Units/volume] in Serum by Immunoassay DNA AB DS + CONF BLD Lab Routine Dye antibody positive Malaise and fatigue Polymyalgia (HCC) Pain in joint, multiple sites Expected: 05/18/2024, Expires: 08/17/2024 [facility] Comment on above: Expected: 05/18/2024, Expires: Start: 05-18-2024 End: 08-17-2024 Erythrocyte sedimentation rate SEDIMENTATION RATE, WESTERGREN Lab Routine Dye antibody positive Malaise and fatigue Polymyalgia (HCC) Pain in joint, multiple sites Expected: 05/18/2024, Expires: 08/17/2024 [facility] Comment on above: Expected: 05/18/2024, Expires: Start: 05-18-2024 End: 08-17-2024 Protein/Creatinine [Mass Ratio] in Urine PROTEIN / CREATININE RATIO Lab Routine Dye antibody positive Malaise and fatigue Polymyalgia (HCC) Pain in joint, multiple sites Expected: 05/18/2024, Expires: 08/17/2024 [facility] Comment on above: Expected: 05/18/2024, Expires: Start: 05-18-2024 End: 08-17-2024 Urinalysis complete panel - Urine URINALYSIS, WITH MICROSCOPIC Lab Routine Dye antibody positive Malaise and fatigue Polymyalgia (HCC) Pain in joint, multiple sites Expected: 05/18/2024, Expires: 08/17/2024 [facility] Comment on above: Expected: 05/18/2024, Expires: Start: 05-06-2024 End: 05-06-2024 Patient encounter procedure 05/06/2024 8:45 AM EST Office Visit [facility] [address] [facility] [address] [place] [address] Cheikh Haddad PA-C [address] [facility] [address] [place] [id number] 6 week post op [facility] Comment on above: 6 week post op Start: 05-04-2024 End: 05-04-2024 ambulatory 05/04/2024 9:40 AM EST [facility] [id number] [place] [id number] [place] [address] [facility] [address] [place] [address] Weight gain Endocrinology [place] Comment on above: Weight gain Start: 04-21-2024 End: 04-21-2024 Patient encounter procedure 04/21/2024 8:30 AM EST Office Visit [facility] [address] [facility] [address] [place] [address] Cheikh Haddad PA-C [address] [facility] [address] [place] [address] 6 week post op [facility] Comment on above: 6 week post op Start: 04-12-2024 End: 04-12-2024 Patient encounter procedure 04/12/2024 3:30 PM EST Office Visit Orthopaedics [address] [place] [address] Valdez Reyes MD [address] [place] [address] 2 mo follow up Orthopaedics Comment on above: 2 mo follow up Start: 04-11-2024 End: 04-11-2024 Patient encounter procedure [facility] Comment on above: RC Start: 04-06-2024 End: 04-06-2024 Patient encounter procedure 04/06/2024 8:00 AM EST Appointment [facility] [address] [place] [address] Stephen Walters PTA [facility] Start: 03-30-2024 End: 03-30-2024 Patient encounter procedure 03/30/2024 8:00 AM EST Appointment [facility] [address] [place] [address] Stephen Walters PTA [facility] Start: 03-23-2024 End: 03-23-2024 Patient encounter procedure 03/23/2024 8:00 AM EST Appointment [facility] [address] [place] [address] Stephen Walters PTA [facility] Start: 03-22-2024 Hemoglobin A1c measurement A1C test (Diabetic or Prediabetic) Florian Sarbjit [facility] Start: 03-22-2024 End: 03-22-2024 Patient encounter procedure 03/22/2024 8:30 AM EST Office Visit [facility] [address] [facility] [address] [place] [address] Cheikh Haddad PA-C [address] [facility] [address] [place] [address] 1st post-op - right arthroscopic partial medial meniscectomy - 03/08/24 - Dr. Garcia [facility] Comment on above: 1st post-op - right arthroscopic partial medial meniscectomy - 03/08/24 - Dr. Garcia Start: 03-21-2024 End: 03-21-2024 Patient encounter procedure 03/21/2024 8:00 AM EST Appointment [facility] [address] [place] [address] Vivi Trejo PTA [facility] Start: 03-18-2024 End: 03-18-2024 Patient encounter procedure 03/18/2024 8:00 AM EDT Office Visit [facility] [address] [place] [address] Vargas Malhotra, DO [address] [place] [address] Yearly checkup [facility] Comment on above: Yearly checkup Start: 03-14-2024 End: 03-14-2024 Patient encounter procedure 03/14/2024 10:15 AM EDT Appointment [facility] [address] [place] [address] Caitlin Caruso, PT R knee pain post arthroscopy medial meniscus 03/08/24 Dr Bj [facility] Comment on above: R knee pain post arthroscopy medial meni scus 03/08/24 Dr Garcia Start: 03-11-2024 End: 03-11-2024 Telemedicine consultation with patient 03/11/2024 9:00 AM EDT Telemedicine [facility] [address] [facility] [address] [place] [address] [place] [address] [place] [address] [address] [place] [address] video- 4m f/u [facility] Comment on above: video- 4m f/u Start: 03-09-2024 End: 03-09-2024 Patient encounter procedure Apryl Asencio [facility] Comment on above: Overall health, inability to lose weight 4m f/u Start: 03-08-2024 End: 03-08-2024 Arthrs kne surg w/meniscectomy med/lat w/shvg KNEE ARTHROSCOPY Primary osteoarthritis of right knee Acute medial meniscus tear of right knee 03/08/2024 7:30 AM EDT [facility] Start: 03-02-2024 End: 03-02-2024 Patient encounter procedure 03/02/2024 4:40 PM EDT Appointment Radiology [address] [place], [place] [id number] Procedure: MRV BRAIN WO IVCON Radiology MRI Comment on above: Procedure: MRV BRAIN WO IVCON Start: 03-02-2024 Subsequent hospital visit by physician 03/02/2024 4:40 PM EDT Hospital Encounter Radiology MRI [address] [facility] [address] [place], [place] [id number] IIH (idiopathic intracranial hypertension) [G93.2] Radiology MRI Comment on above: IIH (idiopathic intracranial hypertensio n) [G93.2] Start: 02-25-2024 End: 02-25-2024 Patient encounter procedure 02/25/2024 11:00 AM EDT Office Visit Integrative Medicine [address] [place] [address] Rossana Alegria MD [facility] [place] [id number] Unexplained symptoms and test results [facility] Comment on above: Unexplained symptoms and test results Start: 02-18-2024 End: 02-18-2024 Patient encounter procedure 02/18/2024 4:20 PM EDT Office Visit Rheumatology [address] [place] [address] Marcial Queen MD [address] [place] [address] Joint Pain (lab follow up) Rheumatology Comment on above: Joint Pain (lab follow up) Start: 02-16-2024 End: 02-16-2024 Patient encounter procedure 02/16/2024 3:30 PM EDT Office Visit CB/Gynecology [address] [facility] [place] [address] [place] [address] [place] [address] annual/IUD Check CB/Gynecology Comment on above: annual/IUD Check Start: 02-15-2024 End: 02-15-2024 Patient encounter procedure CB/Gynecology Comment on above: annual Shortness of breath [R06.02] Procedure: MRV BRAIN WO IVCON Start: 02-12-2024 End: 02-12-2024 Patient encounter procedure 02/12/2024 12:40 PM EDT Office Visit Gastroenterology [address] [place] [address] Heladio Crain Jr., DO [address] [place] [address] 3 months follow-up Gastroenterology Comment on above: 3 months follow-up Start: 02-10-2024 End: 02-10-2024 Patient encounter procedure 02/10/2024 8:00 AM EDT Appointment [facility] [address] [place] [address] Tracy Dickey PT RC [facility] Comment on above: [place] Start: 02-09-2024 End: 02-09-2024 Patient encounter procedure 02/09/2024 3:00 PM EDT Office Visit Orthopaedics [address] [place] [address] Valdez Reyes MD [address] [place] [address] right knee torn minicus Orthopaedics Comment on above: right knee torn minicus Start: 02-04-2024 End: 02-04-2024 Patient encounter procedure 02/04/2024 4:00 PM EDT Office Visit Neurology [address] [place] [address] Michael Hitchcock APRN.SENIOR PLANNING MANAGER [address] [place] [address] Botox Neurology Comment on above: Botox Start: 02-03-2024 End: 02-03-2024 Patient encounter procedure CB/Gynecology Comment on above: ultrasound follow up Start: 01-27-2024 End: 01-27-2024 Patient encounter procedure 01/27/2024 8:00 AM EDT Appointment [facility] [address] [place] [address] Neyda Crump PTA [facility] Start: 01-21-2024 End: 01-21-2024 Patient encounter procedure Ophthalmology Comment on above: Manifest refraction then dilate with OCT if needed, 6 months Auto, MR, iCare, the n dilate with NOCT Start: 01-21-2024 End: 01-21-2024 Patient encounter procedure 01/21/2024 8:30 AM EDT Office Visit [facility] [address] [facility] [address] [place] [address] Cheikh Haddad PA-C [address] [place] [address] [place] [id number] 6 week fu [facility] Comment on above: 6 week fu Start: 01-20-2024 End: 01-20-2024 Patient encounter procedure Ophthalmology Comment on above: Manifest refraction then dilate with OCT if needed, 6 months Start: 01-17-2024 Covid-19 Vaccine () Covid-19 Vaccine () [facility] Start: 01-17-2024 Covid-19 Vaccine ( season) Covid-19 Vaccine ( season) [facility] Start: 01-17-2024 Influenza vaccination [facility] Start: 01-15-2024 End: 01-14-2025 US Pelvis PELVIC US [facility] Anc Imaging Routine Pelvic pain in female Hydrosalpinx Expected: 01/15/2024, Expires: 01/14/2025 [facility] Work Phone: Comment on above: Expected: 01/15/2024, Expires: Start: 01-14-2024 End: 04-14-2024 DNA ANTIBODY DS BLD [facility] Work Phone: Comment on above: Expected: 01/14/2024, Expires: Start: 01-13-2024 End: 01-13-2024 Patient encounter procedure [facility] Comment on above: Start: 01-07-2024 End: 01-07-2024 ambulatory 01/07/2024 4:40 PM EDT [facility] [address] [place] [address] Marcial Queen MD [address] [place], [place] [id number] ZOOM: review labs f/up Rheumatology Comment on above: ZOOM: review labs f/up Start: 01-07-2024 End: 01-07-2024 Follow-up encounter 01/07/2024 4:40 PM EDT [facility] [address] [place] [address] Marcial Queen MD [address] [place], [place] [id number] Follow up/review labs Rheumatology Comment on above: Follow up/review labs Start: 01-07-2024 End: 04-07-2024 GUILLE BY IFA WITH REFLEX GUILLE BY IFA WITH REFLEX Lab Routine Shortness of breath Pleurisy Dye antibody positive Malaise and fatigue Positive GUILLE (antinuclear antibody) Polymyalgia (HCC) Pain in joint, multiple sites Expected: 01/07/2024, Expires: 04/07/2024 [facility] Work Phone: Comment on above: Expected: 01/07/2024, Expires: 4 Start: 01-07-2024 End: 04-07-2024 Complement C3 [Mass/volume] in Serum or Plasma C3 COMPLEMENT Lab Routine Shortness of breath Pleurisy Dye antibody positive Malaise and fatigue Positive GUILLE (antinuclear antibody) Polymyalgia (HCC) Pain in joint, multiple sites Expected: 01/07/2024, Expires: 04/07/2024 [facility] Comment on above: Expected: 01/07/2024, Expires: Start: 01-07-2024 End: 04-07-2024 Complement C4 [Mass/volume] in Serum or Plasma C4 COMPLEMENT Lab Routine Shortness of breath Pleurisy Dye antibody positive Malaise and fatigue Positive GUILLE (antinuclear antibody) Polymyalgia (HCC) Pain in joint, multiple sites Expected: 01/07/2024, Expires: 04/07/2024 [facility] Comment on above: Expected: 01/07/2024, Expires: Start: 01-07-2024 End: 04-07-2024 DNA double strand Ab [Presence] in Serum by Immunofluorescence (IF) Crithidia luciliae CRITHIDIA LUCILIAE Lab Routine Shortness of breath Pleurisy Dye antibody positive Malaise and fatigue Positive GUILLE (antinuclear antibody) Polymyalgia (HCC) Pain in joint, multiple sites Expected: 01/07/2024, Expires: 04/07/2024 [facility] Comment on above: Expected: 01/07/2024, Expires: 4 Start: 01-07-2024 End: 04-07-2024 DNA double strand Ab [Units/volume] in Serum by Immunoassay DNA AB DS + CONF BLD Lab Routine Shortness of breath Pleurisy Dye antibody positive Malaise and fatigue Positive GUILLE (antinuclear antibody) Polymyalgia (HCC) Pain in joint, multiple sites Expected: 01/07/2024, Expires: 04/07/2024 [facility] Comment on above: Expected: 01/07/2024, Expires: 4 Start: 01-07-2024 End: 04-07-2024 Extractable nuclear Ab panel - Serum ANTI SALOMON ID Lab Routine Shortness of breath Pleurisy Dye antibody positive Malaise and fatigue Positive GUILLE (antinuclear antibody) Polymyalgia (HCC) Pain in joint, multiple sites Expected: 01/07/2024, Expires: 04/07/2024 [facility] Comment on above: Expected: 01/07/2024, Expires: 4 Start: 01-07-2024 End: 04-07-2024 ASHISH DNA AUTOABS, DOUBLE STRANDED ASHISH DNA AUTOABS, DOUBLE STRANDED Lab Routine Shortness of breath Pleurisy Dye antibody positive Malaise and fatigue Positive GUILLE (antinuclear antibody) Polymyalgia (HCC) Pain in joint, multiple sites Expected: 01/07/2024, Expires: 04/07/2024 [facility] Comment on above: Expected: 01/07/2024, Expires: Start: 01-07-2024 End: 04-07-2024 Protein/Creatinine [Mass Ratio] in Urine PROTEIN / CREATININE RATIO Lab Routine Shortness of breath Pleurisy Dye antibody positive Malaise and fatigue Positive GUILLE (antinuclear antibody) Polymyalgia (HCC) Pain in joint, multiple sites Expected: 01/07/2024, Expires: 04/07/2024 [facility] Comment on above: Expected: 01/07/2024, Expires: 4 Start: 01-07-2024 End: 04-07-2024 Urinalysis complete panel - Urine URINALYSIS, WITH MICROSCOPIC Lab Routine Shortness of breath Pleurisy Dye antibody positive Malaise and fatigue Positive GUILLE (antinuclear antibody) Polymyalgia (HCC) Pain in joint, multiple sites Expected: 01/07/2024, Expires: 04/07/2024 [facility] Comment on above: Expected: 01/07/2024, Expires: Start: 01-06-2024 End: 01-06-2024 Patient encounter procedure 01/06/2024 8:00 AM EDT Appointment [facility] [address] [place], [place] [id number] Neyda Crump PTA [facility] Start: 01-05-2024 End: 01-05-2024 Patient encounter procedure 01/05/2024 1:00 PM EDT Procedure OB/Gynecology [address] [place] [address] Provider, Database Tester [facility] Ultrasound [address] [place] [address] Pelvic pain in female [R10.2] OB/Gynecology Comment on above: Pelvic pain in female [R10.2] Start: 01-04-2024 End: 01-04-2024 Patient encounter procedure 01/04/2024 8:00 AM EDT Appointment [facility] [address] [place] [address] Vivi Trejo PTA [facility] Start: 12-31-2023 Hemoglobin A1c measurement A1C test (Diabetic or Prediabetic) [facility] Start: 12-30-2023 End: 12-30-2023 Patient encounter procedure Neurology Comment on above: follow up Start: 12-28-2023 End: 12-28-2023 Patient encounter procedure 12/28/2023 8:00 AM EDT Appointment [facility] [address] [place] [address] Vivi Trejo PTA [facility] Start: 12-24-2023 End: 12-24-2023 Patient encounter procedure 12/24/2023 3:45 PM EDT Appointment [facility] [address] [place] [address] Vivi Trejo PTA [facility] Start: 12-22-2023 End: 12-22-2023 Patient encounter procedure Radiology Comment on above: Request: XR KNEE GENERAL 4V AP BOTH/PA B OTH/LAT/MERC RIGHT right knee torn mini cus Start: 12-17-2023 Influenza [facility] Start: 12-15-2023 End: 12-14-2024 US Pelvis PELVIC US WHI Anc Imaging Routine Pelvic pain in female IUD (intrauterine device) in place Expected: 12/15/2023, Expires: 12/14/2024 [facility] Work Phone: Comment on above: Expected: 12/15/2023, Expires: 5 Start: 12-15-2023 End: 12-15-2023 Patient encounter procedure 12/15/2023 9:30 AM EDT Office Visit CB/Gynecology [address] [place] [address] Tammy Coffman APRN.SENIOR PLANNING MANAGER [address] [place] [id number] iud, pelvic pressure CB/Gynecology Comment on above: iud, pelvic pressure Start: 12-01-2023 End: 12-01-[address] Ct Scan Comment on above: Generalized abdominal pain [R10.84] Start: 11-26-2023 End: 02-25-2024 BETA 2 GLYCOPROTEIN 1, IGA [facility] Comment on above: Expected: 11/26/2023, Expires: Start: 11-26-2023 End: 02-25-2024 Cardiolipin IgG and IgM panel - Serum [facility] Comment on above: Expected: 11/26/2023, Expires: Start: 11-26-2023 End: 02-25-2024 DNA double strand Ab [Presence] in Serum by Immunofluorescence (IF) Marysol neville [facility] Comment on above: Expected: 11/26/2023, Expires: Start: 11-26-2023 End: 02-25-2024 DNA double strand Ab [Units/volume] in Serum by Immunoassay [facility] Comment on above: Expected: 11/26/2023, Expires: 4 Start: 11-26-2023 End: 02-25-2024 Extractable nuclear Ab panel - Serum [facility] Work Phone: Comment on above: Expected: 11/26/2023, Expires: 4 Start: 11-26-2023 End: 02-25-[address] [facility] Comment on above: Expected: 11/26/2023, Expires: 4 Start: 11-26-2023 End: 11-26-2023 Patient encounter procedure 11/26/2023 1:00 PM EDT Office Visit Rheumatology [address] [place] [address] Marcial Queen MD [address] [place] [address] CONSULT TO RHEUM/IMMUN DISEASE [9039] Rheumatology Comment on above: CONSULT TO RHEUM/IMMUN DISEASE [9039] Start: 11-13-2023 End: 02-12-2024 Comprehensive metabolic 2000 panel - Serum or Plasma [facility] Comment on above: Expected: 11/13/2023, Expires: Start: 11-13-2023 End: 02-12-2024 Nuclear Ab [Presence] in Serum by Immunoassay [facility] Work Phone: Comment on above: Expected: 11/13/2023, Expires: Start: 11-13-2023 End: 02-12-2024 Smooth muscle Ab [Presence] in Serum [facility] Comment on above: Expected: 11/13/2023, Expires: Start: 11-13-2023 End: 11-13-2023 Patient encounter procedure Gastroenterology Comment on above: 3 months follow-up/ Rev Labs Start: 11-12-2023 ANNUAL PCP TEAM CHRONIC DISEASE VISIT ANNUAL PCP TEAM CHRONIC DISEASE VISIT [facility] Start: 10-29-2023 End: 10-29-2023 Patient encounter procedure 10/29/2023 1:00 PM EDT Office Visit Neurology [address] [place] [address] Michael Hitchcock APRN.SENIOR PLANNING MANAGER [address] [place] [address] botox Neurology Comment on above: botox Start: 10-07-2023 End: 10-07-2023 Patient encounter procedure [facility] [place] Comment on above: FOLLOW UP MRV BRAIN WO IVCON Start: 09-21-2023 End: 09-21-2023 ambulatory 09/21/2023 12:15 PM EDT OT/PT/Speech Visit [facility] [address] [place] [address] Lin Barton, PT [address] [place] [address] PN [facility] Comment on above: PN Start: 09-15-2023 End: 09-15-2023 ambulatory 09/15/2023 4:15 PM EDT OT/PT/Speech Visit [facility] [address] [place] [address] Roe Neff, PT [address] [place] [address] dry needling [facility] Comment on above: dry needling Start: 07-29-2023 End: 10-28-2023 25-hydroxyvitamin D3 [Mass/volume] in Serum or Plasma VITAMIN D 25 HYDROXY Lab Routine Class 3 severe obesity due to excess calories with serious comorbidity and body mass index (BMI) of 50.0 to 59.9 in adult ([facility]) Expected: 07/29/2023, Expires: 10/28/2023 [facility] Work Phone: Comment on above: Expected: 07/29/2023, Expires: 4 Start: 07-29-2023 End: 10-28-2023 Lipid 1996 panel - Serum or Plasma LIPID PANEL BASIC Lab Routine Class 3 severe obesity due to excess calories with serious comorbidity and body mass index (BMI) of 50.0 to 59.9 in adult (HCC) Expected: 07/29/2023, Expires: 10/28/2023 [facility] Work Phone: Comment on above: Expected: 07/29/2023, Expires: Start: 07-29-2023 End: 10-28-2023 Thyrotropin [Units/volume] in Serum or Plasma TSH BLD Lab Routine Class 3 severe obesity due to excess calories with serious comorbidity and body mass index (BMI) of 50.0 to 59.9 in adult (HCC) Expected: 07/29/2023 (Approximate), Expires: 10/28/2023 [facility] Work Phone: Comment on above: Expected: 07/29/2023 (Approximate), Expi res: 10/28/2023 Start: 07-29-2023 End: 10-28-2023 Thyroxine (T4) free [Mass/volume] in Serum or Plasma T4 FREE/FREE THYROX Lab Routine Class 3 severe obesity due to excess calories with serious comorbidity and body mass index (BMI) of 50.0 to 59.9 in adult (HCC) Expected: 07/29/2023 (Approximate), Expires: 10/28/2023 [facility] Work Phone: Comment on above: Expected: 07/29/2023 (Approximate), Expi res: 10/28/2023 Start: 07-22-2023 Lipid panel Lipids [facility] Start: 07-10-2023 End: 10-09-2023 C reactive protein [Mass/volume] in Serum or Plasma [facility] Work Phone: Comment on above: Expected: 07/10/2023, Expires: 4 Start: 07-10-2023 End: 10-09-2023 CBC W Auto Differential panel - Blood [facility] Work Phone: Comment on above: Expected: 07/10/2023, Expires: 4 Start: 07-10-2023 End: 10-09-2023 CELIAC SCREEN WITH REFLEX [facility] Work Phone: Comment on above: Expected: 07/10/2023, Expires: 4 Start: 07-10-2023 End: 10-09-2023 Comprehensive metabolic 2000 panel - Serum or Plasma [facility] Work Phone: Comment on above: Expected: 07/10/2023, Expires: 4 Start: 07-10-2023 End: 10-09-2023 Erythrocyte sedimentation rate [facility] Work Phone: Comment on above: Expected: 07/10/2023, Expires: 4 Start: 07-10-2023 End: 10-09-2023 Helicobacter pylori IgG Ab [Presence] in Serum or Plasma by Immunoassay [facility] Work Phone: Comment on above: Expected: 07/10/2023, Expires: 4 Start: 07-02-2023 Hemoglobin A1c measurement HbA1C [facility] Start: 07-02-2023 Hemoglobin A1c/Hemoglobin.total in Blood HBA1C [facility] Start: 06-25-2023 Glaucoma screening Dilated Retinal Exam [facility] Start: 06-25-2023 Hepatitis C antibody, confirmatory test DILATED RETINAL EXAM [facility] Start: 06-20-2023 Hemoglobin A1c/Hemoglobin.total in Blood HBA1C [facility] Start: 05-18-2023 Depression Assessment Depression Assessment [facility] Start: 02-04-2023 Aerobic Culture Aerobic Culture [facility] Start: 02-04-2023 Anaerobic Culture Anaerobic Culture [facility] Start: 02-04-2023 End: 02-04-2023 [facility] Start: 02-04-2023 Cerebrospinal fluid culture [facility] Start: 01-30-2023 XR pre/post mri xray XR pre/post mri xray [facility] Start: 01-30-2023 [facility] Start: 01-30-2023 MR Cervical spine WO and W contrast IV [facility] Start: 01-30-2023 MRI of cervical spine with contrast MR cervical spine wo/w con [facility] Start: 01-30-2023 MRI of thoracic spine with contrast [facility] Start: 01-16-2023 Covid-19 Vaccine ( season) Covid-19 Vaccine () [facility] Start: 01-16-2023 Influenza vaccination [facility] Start: 12-30-2022 End: 03-01-2023 C reactive protein [Mass/volume] in Serum or Plasma [facility] Work Phone: Comment on above: Expected: 12/30/2022, Expires: 3 Start: 12-30-2022 End: 03-01-2023 CELIAC SCREEN WITH REFLEX [facility] Work Phone: Comment on above: Expected: 12/30/2022, Expires: 3 Start: 11-12-2022 End: 01-12-2023 Hemoglobin A1c in Blood HGB A1C Lab Routine Sinus bradycardia Class 3 severe obesity due to excess calories with serious comorbidity and body mass index (BMI) of 40.0 to 44.9 in adult (HCC) Expected: 11/12/2022, Expires: 01/12/2023 [facility] Work Phone: Comment on above: Expected: 11/12/2022, Expires: 3 Start: 05-18-2022 DEPRESSION ASSESSMENT DEPRESSION ASSESSMENT [facility] Start: 01-16-2022 Influenza vaccination INFLUENZA (#1) [facility] Start: 2020 HPV TESTING HPV TESTING [facility] Start: 2020 Screening for malignant neoplasm of cervix HPV Testing [facility] Start: 2017 HPV Vaccine (1 - 3-dose SCDM series) HPV Vaccine (1 - 3-dose SCDM series) [facility] Start: 09-04-2011 PAP TESTING PAP TESTING [facility] Start: 09-04-2011 Screening for malignant neoplasm of cervix [facility] Start: 2009 DTaP/Tdap/Td vaccine (1 - Tdap) DTaP/Tdap/Td vaccine (1 - Tdap) [facility] Start: 2009 Hepatitis B Vaccine (1 of 3 - 19+ 3-dose series) Hepatitis B Vaccine (1 of 3 - 19+ 3-dose series) [facility] Start: 2009 Pneumococcal vaccination Pneumococcal Vaccine (1 of 2 - PCV) [facility] Start: 2009 Urine microalbumin profile [facility] Start: 2008 ANNUAL PCP TEAM CHRONIC DISEASE VISIT ANNUAL PCP TEAM CHRONIC DISEASE VISIT [facility] Start: 2008 Anxiety Screening Anxiety Screening [facility] Start: 2008 Depression Screening Depression Screening [facility] Start: 2008 GFR test (Diabetes, CKD 3-4, OR last GFR 15-59) GFR test (Diabetes, CKD 3-4, OR last GFR 15-59) [facility] Start: 2008 Glaucoma screening Diabetic retinal exam [facility] Start: 2008 Hepatitis B surface antibody level LDL CHOLESTEROL [facility] Start: 2008 HEPATITIS C SCREENING HEPATITIS C SCREENING [facility] Start: 2008 Hepatitis C screening [facility] Start: 2008 HIV SCREENING HIV SCREENING [facility] Start: 2008 HIV screening HIV Screening [facility] Start: 2008 Urine screening for protein Diabetic Alb to Cr ratio (uACR) test [facility] Start: 2005 HIV screening HIV screen [facility] Start: 09-04-2003 Varicella vaccine (1 of 2 - 13+ 2-dose series) Varicella vaccine (1 of 2 - 13+ 2-dose series) [facility] Start: 2000 3 comp foot exam completed DIABETIC FOOT EXAM [facility] Start: 2000 Diabetic foot examination Diabetic Foot Exam [facility] Start: 2000 Hepatitis B screening URINE ALBUMIN:CREATININE RATIO [facility] Start: 1996 PNEUMOCOCCAL (1 - PCV) PNEUMOCOCCAL (1 - PCV) [facility] Start: 1996 Pneumococcal 0-64 years Vaccine (1 of 2 - PCV) Pneumococcal 0-64 years Vaccine (1 of 2 - PCV) [facility] Start: 1996 Pneumococcal vaccination [facility] Start: 09-04-1995 Hemoglobin A1c/Hemoglobin.total in Blood HBA1C [facility] Start: 09-04-1991 Varicella vaccine (1 of 2 - 2-dose childhood series) Varicella vaccine (1 of 2 - 2-dose childhood series) [facility] Start: 03-05-1991 COVID-19 VACCINE (#1) COVID-19 VACCINE (#1) [facility] Start: 1990 HEPATITIS B (1 of 3 - 3-dose series) HEPATITIS B (1 of 3 - 3-dose series) [facility] Start: 1990 Hepatitis B Vaccine (1 of 3 - 3-dose series) Hepatitis B Vaccine (1 of 3 - 3-dose series) [facility] Bacteria identified in Urine by Culture URINE CULTURE Microbiology Routine Sensation of pressure in bladder area 11/12/2023 11:27 AM EDT [facility] Work Phone: BACTERIAL VAGINOSIS NAAT BACTERI AL VAGINOSIS NAAT Lab Routine Vaginal discharge 12/15/2023 12:00 PM EDT [facility] KIM/TRICHOMONAS NAAT KIM /TRICHOMONAS NAAT Lab Routine Vaginal discharge 12/15/2023 12:00 PM EDT [facility] End: 12-12-2024 CT Abdomen and Pelvis W contrast IV CT ABD/PEL W IVCON Radiology Routine Generalized abdominal pain 1 Occurrences starting 11/13/2023 until 12/12/2024 [facility] Comment on above: 1 Occurrences starting 11/13/2023 until 12/12/2024 CT Abdomen and Pelvi s W contrast IV CT ABD/PEL W IVCON Radiology Routine Generalized abdominal pain 12/01/2023 3:04 PM EDT [facility] Work Phone: ECG COMPLETE [facility] Work Phone: Comment on above: Ordered: 02/23/2024 End: 01-06-2025 Echocardiography ECHO Cardiology Routine Shortness of breath Pleurisy Dye antibody positive Malaise and fatigue Positive GUILLE (antinuclear antibody) Polymyalgia (HCC) Pain in joint, multiple sites 1 Occurrences starting 01/07/2024 until 01/06/2025 [facility] Comment on above: 1 Occurrences starting 01/07/2024 until 01/06/2025 End: 12-31-2023 EGD DIAGNOSTIC EGD DIAGNOSTIC Endoscopy Routine Gastroesophageal reflux disease, unspecified whether esophagitis present Dyspepsia and disorder of function of stomach 1 Occurrences starting 12/30/2022 until 12/31/2023 [facility] Work Phone: Comment on above: 1 Occurrences starting 12/30/2022 until 12/31/2023 End: 11-13-2023 EXERCISE STRESS ECG (WITHOUT IMAGING) EXERCISE STRESS ECG (WITHOUT IMAGING) Cardiology Routine SOB (shortness of breath) Chest pain, unspecified type Palpitations 1 Occurrences starting 11/12/2022 until 11/13/2023 [facility] Work Phone: Comment on above: 1 Occurrences starting 11/12/2022 until 11/13/2023 Glucose [Mass/volume ] in Serum or Plasma POCT Glucose Point of Care Testing STAT As Needed until discontinued starting 03/08/2024 [facility] Comment on above: As Needed until discontinued starting End: 10-26-2024 Hemoglobin and Hematocrit Hemoglobin and Hematocrit Lab STAT Hemochromatosis, unspecified hemochromatosis type One Time for 1 Occurrences starting 10/26/2024 until 10/26/2024 [facility] Comment on above: One Time for 1 Occurrences starting 10/16 until 10/26/2024 End: 12-19-2024 Hemoglobin and Hematocrit Hemoglobin and Hematocrit Lab Routine Hemochromatosis, unspecified hemochromatosis type 1 Occurrences starting 12/19/2024 until 12/19/2024 [facility] Comment on above: 1 Occurrences starting 12/19/2024 until 12/19/2024 End: 01-29-2024 Hepatobil syst imag inc gb w/pharma intervenj NM HEPATOBILIARY W EF AND/OR RX Radiology Routine Dyspepsia and disorder of function of stomach RUQ pain 1 Occurrences starting 12/30/2022 until 01/29/2024 [facility] Work Phone: Comment on above: 1 Occurrences starting 12/30/2022 until 01/29/2024 End: 03-08-2024 INITIATE PACU OXYGEN THERAPY PROTOCOL Initiate PACU Oxygen Therapy Protocol Respiratory Care Routine Continuous until discontinued starting 03/08/2024 [facility] Work Phone: Comment on above: Continuous until discontinued starting 1 End: 10-25-2024 Iron and TIBC [facility] Comment on above: 1 Occurrences starting 10/25/2024 until 10/25/2024 End: 10-26-2024 Iron and TIBC Iron and TIBC Lab STAT Hemochromatosis, unspecified hemochromatosis type One Time for 1 Occurrences starting 10/26/2024 until 10/26/2024 [facility] Comment on above: One Time for 1 Occurrences starting 10/16 until 10/26/2024 End: 10-31-2024 [employer] [facility] Comment on above: 1 Occurrences starting 10/31/2024 until 10/31/2024 End: 12-12-2024 [employer] [facility] Comment on above: 1 Occurrences starting 12/12/2024 until 12/12/2024 End: 12-19-2024 Iron and TIBC Iron and TIBC Lab Routine Hemochromatosis, unspecified hemochromatosis type 1 Occurrences starting 12/19/2024 until 12/19/2024 [facility] Comment on above: 1 Occurrences starting 12/19/2024 until 12/19/2024 End: 07-03-2025 MR Brain WO contrast MRI BRAIN WO IVCON Radiology Routine Hx of migraines 1 Occurrences starting 06/03/2024 until 07/03/2025 [facility] Work Phone: Comment on above: 1 Occurrences starting 06/03/2024 until 07/03/2025 NEURO CARDIO AUTONOM IC REFLEX W/WO TILT NEURO CARDIO AUTONOMIC REFLEX W/WO TILT Procedures Routine Episodic lightheadedness Ordered: 07/06/2023 [facility] Work Phone: Comment on above: Ordered: 07/06/2023 NEURO QSART NEURO QSART Proc edures Routine Paresthesia of skin Ordered: 07/06/2023 [facility] Work Phone: Comment on above: Ordered: 07/06/2023 NM CARDIAC PERF STRESS/PHARM NM CARDIAC PERF STRESS/PHARM Radiology Routine Chest pain, unspecified type Abnormal electrocardiogram 02/09/2023 2:51 PM EDT [facility] Work Phone: PAP TEST PAP TEST Lab Sabrina aguilar Encounter for gynecological examination without abnormal finding Ordered: 02/16/2024 [facility] Work Phone: Comment on above: Ordered: 02/16/2024 Patient Education Formerly [facility] Lumb ar Puncture Discharge Instructions [facility] Work Phone: POC PUMP TESTER ULTRASOUND POC PUMP TESTER ULTRASO UND Anc Imaging Routine Intrauterine contraceptive device threads lost, subsequent encounter Ordered: 12/12/2024 [facility] Work Phone: Comment on above: Ordered: 12/12/2024 End: 11-12-2023 Polysomnogram POLYSOMNOGRAM (PSG) Procedures Routine Sinus bradycardia 1 Occurrences starting 11/12/2022 until 11/12/2023 [facility] Work Phone: Comment on above: 1 Occurrences starting 11/12/2022 until 11/12/2023 Removal intrauterine device iud REMOVE INTRAUTERINE DEVICE Procedures Routine Intrauterine contraceptive device threads lost, subsequent encounter Encounter for IUD removal Attempted IUD removal, unsuccessful Ordered: 11/23/2024 [facility] Work Phone: Comment on above: Ordered: 11/23/2024 RF Guidance for flui d aspiration of Lumbar spine space IR LP FOR DRAINAGE (PRESSURE) Radiology Routine IIH (idiopathic intracranial hypertension) Ordered: 06/03/2024 [facility] Comment on above: Ordered: 06/03/2024 SKIN BIOPSY FOR NEUROPATHY/CNL SKIN BIOPSY FOR NEUROPATHY/CNL Procedures Routine Paresthesia of skin Chronic nonintractable headache, unspecified headache type Episodic lightheadedness IIH (idiopathic intracranial hypertension) Ordered: 07/06/2023 [facility] Work Phone: Comment on above: Ordered: 07/06/2023 Unlisted hysteroscop y procedure uterus REMOVE IUD NON EMBEDDED W/ HYSTEROSCOPY Intrauterine contraceptive device threads lost, subsequent encounter OR [facility] Immunizations Immunization Date Immunization Notes Care Provider Erin graf 01-23-2024 rabies vaccine, for intramuscular injection Marya Wright [facility] 01-16-2024 rabies vaccine, for intramuscular injection Marya Wright [facility] 01-12-2024 rabies vaccine, for intramuscular injection Marya Wright [facility] 01-09-2024 rabies vaccine, for intramuscular injection Marya Wright [facility] 02-16-2020 influenza virus vaccine, unspecified formulation Vargas MALHOTRA [facility] [place] Payers Date Payer Category Payer Self-pay 2022 Medicaid [id number] 2022 Unknown [id number] 2021 Private Health Insurance [id number] 2021 Unknown [id number] [id number] 1990 Unknown [id number] 2.16.84 0.1.261271.3.579.2.593 1990 Unknown [id number] 2.16.84 0.1.253990.3.579.2.593 1990 Unknown [id number] 2.16.84 0.1.925385.3.579.2.593 1990 Unknown [id number] 2.16.84 0.1.822380.3.579.2.593 1990 Unknown [id number] 2.16.8 40.1.567794.3.579.2.727 1990 Unknown [id number] 2.16. 840.1.517075.3.579.2.182 1990 Unknown [id number] 2.16. 840.1.470288.3.579.2.182 1990 Unknown [id number] 2.16. 840.1.301678.3.579.2.182 1990 Unknown [id number] 2.16.8 40.1.190258.3.579.2.182 1990 Unknown [id number] 2.16.8 40.1.664653.3.579.2.182 1990 Unknown [id number] 2.16.8 40.1.199424.3.579.2.185 1990 Unknown [id number] 2.16.8 40.1.306839.3.579.2.185 1990 Unknown [id number] 2.16.8 40.1.027480.3.579.2.185 1990 Unknown [id number] 2.16.8 40.1.442311.3.579.2.185 1990 Unknown [id number] 2.16.8 40.1.666365.3.579.2.185 1990 Unknown [id number] 2.16.8 40.1.466113.3.579.2.185 1990 Unknown [id number] 2.16.8 40.1.449652.3.579.2.185 1990 Unknown [id number] 2.16.8 40.1.642677.3.579.2.185 1990 Unknown [id number] 2.16.8 40.1.001059.3.579.2.185 1990 Unknown [id number] 2.16.8 40.1.482411.3.579.2.185 1990 Unknown [id number] 2.16.8 40.1.942394.3.579.2.185 1990 Unknown [id number] 2.16.8 40.1.740077.3.579.2.185 1990 Unknown [id number] 2.16.8 40.1.206612.3.579.2.185 1990 Unknown [id number] 2.16.8 40.1.498651.3.579.2.185 1990 Unknown [id number] 2.16.8 40.1.223891.3.579.2.185 1990 Unknown [id number] 2.16.8 40.1.565829.3.579.2.185 1990 Unknown [id number] 2.16.8 40.1.392011.3.579.2.185 1990 Unknown [id number] 2.16.8 40.1.970432.3.579.2.185 1990 Unknown [id number] 2.16.8 40.1.255709.3.579.2.185 1990 Unknown [id number] 2.16.8 40.1.199039.3.579.2.185 1990 Unknown [id number] 2.16.8 40.1.847874.3.579.2.185 1990 Unknown [id number] 2.16.8 40.1.826391.3.579.2.185 1990 Unknown [id number] 2.16.8 40.1.893729.3.579.2.185 1990 Unknown [id number] 2.16.8 40.1.200396.3.579.2.185 1990 Unknown [id number] 2.16.8 40.1.048374.3.579.2.185 1990 Unknown [id number] 2.16.8 40.1.728258.3.579.2.185 1990 Unknown [id number] 2.16.8 40.1.007443.3.579.2.185 1990 Unknown [id number] 2.16.8 40.1.379102.3.579.2.185 1990 Unknown [id number] 2.16.8 40.1.332148.3.579.2.185 1959 Self-pay [id number] 1959 Unknown [id number] 1959 Unknown [id number] Unknown [id number] 2.16.8 40.1.447586.3.579.2.531 Unknown [id number] 2.16.8 40.1.998930.3.579.2.531 Unknown [id number] 2.16.8 40.1.461355.3.579.2.531 Social History Date Type Detail Facility Start: 04-25-2021 End: 12-30-2024 Tobacco smoking status Ex-smoker (finding) [facility] Comment on above: Still smokes occassi onally. Start: 04-18-2012 Tobacco smoking status Never [facility] Comment on above: Still smokes occassi onally. Start: 11-12-2022 End: 12-30-2024 Sex Assigned At Female [facility] Start: 05-18-2007 End: 10-16-2022 History of tobacco use Current smoker [facility] Start: 05-18-2007 End: 10-16-2022 History of tobacco use Cigarette Smoker [facility] Start: 06-25-2022 End: 12-30-2024 Tobacco use and exposure Smokeless tobacco non-user [facility] Start: 1990 Sex Assigned At Not on file [facility] Start: 12-30-2024 Tobacco Current vaping or e-cigarette use Smokeless Tobacco Use:. [facility] Tobacco smoking status [facility] Start: 11-12-2022 End: 12-30-2024 Alcohol intake Current drinker of alcohol (finding) [facility] Start: 11-12-2022 End: 12-30-2024 History of Social function [facility] Start: 12-15-2022 End: 12-30-2022 Alcohol intake Ex-drinker (finding) [facility] Start: 12-15-2022 Tobacco Comment Social smoker- one pack every 2 weeks [facility] Start: 1990 Sex Assigned At Female [facility] Start: 01-26-2023 Alcohol Comment usually 6-10 d rinks a month [facility] Start: 05-20-2023 Alcohol Comment usually 6-10 d rinks a month, social [facility] History of tobacco use Passive smoker [employer] How hard is it for y ou to pay for the very basics like food, housing, medical care, and heating Somewhat hard [employer] (I/We) worried wheeyad er (my/our) food would run out before (I/we) got money to buy more. Never true [facility] Start: 02-14-2022 Tobacco Comment Quit during pr egnancy in 2010. [employer] Start: 02-14-2022 Alcohol Comment occasional [employer] At any time in the p ast 12 months, were you homeless or living in retirement [including now]? No [employer] How often to you hav e a drink containing alcohol? Never [facility] Start: 08-29-2009 End: 06-28-2012 Sex Female (finding) [facility] Start: 12-30-2024 Alcohol Comment 1-2 drinks per month [facility] Goals Date Patient Goal Desired Activity /State Personal health goal Functional Status Date Assessment Result [facility] 09-30-2024 Functional Status N/A [facility] 12-23-2022 Functional Status N/A [facility] 11-10-2022 Functional Status N/A [facility] 08-28-2022 Functional Status N/A [facility] 07-24-2022 Functional Status N/A [facility] 01-13-2022 Functional Status N/A [facility] Clinical Notes 12-20-2021 to 01-13-2025 Telephone Encounter - Peace Marie - 01/13/2025 11:47 AM EDTTelephone Encounter - Peace Marie - 01/13/2025 11:47 AM Catherine Nicole RT([place]) - 01/12/2025 3:00 PM EDTPatient Instructions Note Date & Type Note Facility 01-13-2025 Telephone encounter Note Patient last seen on 01/11/25 [facility] 01-13-2025 Miscellaneous Notes Patient last seen on 01/11/25 documented in this encounter [facility] 01-12-2025 History of Present illness Narrative Radiology Service Progress Note PATIENT NAME: Case Abdi DATE OF SERVICE: January 12, 2025 TIME: 2:24 PM PATIENT IDENTITY VERIFICATION COMPLETED USING TWO (2) IDENTIFIERS: Name and Date of confirmed by patient verbally. FALL SCREENING: Has the patient had 2 falls in the last year or 1 fall with injury or currently using an Ambulatory Assistive Device (Walker, Cane, Wheelchair, Crutches, etc.)? No PATIENT GENDER DATA: Assigned female at . status: : No status: NO. PATIENT RELEVANT IMPLANT DATA REVIEWED: Yes PATIENT PRESENTS WITH AN IMPLANTABLE OR ATTACHED GIG TENDER: No RADIOLOGY DEPARTMENT: MR; Exam(s) Completed: Head: Routine Brain. Anesthesia: No. Aromatherapy Administered: No PERIPHERAL IV DATA: Not applicable SIGNED BY: BA Caruso) January 12, 2025 2:24 PM documented in this encounter [facility] 01-12-2025 Note HNO ID: [id number] Author: CATHERINE RUSS RT(R) Service: Radiology Author Type: Technologist Type: Progress Notes Filed: 01/12/2025 14:25 Note Text: Radiology Service Progress Note PATIENT NAME: Case Abdi DATE OF SERVICE: January 12, 2025 TIME: 2:24 PM PATIENT IDENTITY VERIFICATION COMPLETED USING TWO (2) IDENTIFIERS: Name and Date of confirmed by patient verbally. FALL SCREENING: Has the patient had 2 falls in the last year or 1 fall with injury or currently using an Ambulatory Assistive Device (Walker, Cane, Wheelchair, Crutches, etc.)? No PATIENT GENDER DATA: Assigned female at . status: : No status: NO. PATIENT RELEVANT IMPLANT DATA REVIEWED: Yes PATIENT PRESENTS WITH AN IMPLANTABLE OR ATTACHED GIG TENDER: No RADIOLOGY DEPARTMENT: MR; Exam(s) Completed: Head: Routine Brain. Anesthesia: No. 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 Begin this medication a few days after your IUD removal procedure. - Continue your Topamax 100 mg once daily as directed. - Schedule and complete the brain MRI in two weeks (or sooner if insurance approval allows) to check for increased pressure around your brain. - Call your eye care provider to arrange an eye pressure test (ocular pressure check), ideally before your MRI. - After your MRI, plan for a lumbar puncture if recommended, to measure intracranial pressure. - Bring your MRI results to the brain tumor team appointment, then schedule a neurology follow-up with us (or an [facility]) to review findings and decide on next steps. Parafon Forte - 500 mg Take 1 tablet (500 mg) four times a day until headache free for 24 hours or take for 5 days. This is a muscle relaxer. Do not take any other muscle relaxers or opioids while taking this medication. This medication may make you drowsy. Please do not drive or operate machinery while taking this medication. documented in this encounter [facility] 01-11-2025 History of Present illness Narrative Images from the original note were not included. Headache Center - Follow up Virtual Visit Patient's headache clinic evaluation was scheduled as a virtual visit using the following platform Deidre Case Abdi was identified by name and and consented to the video evaluation and its limitations. Based on this evaluation it may be necessary for them to schedule a follow up evaluation with me or other neurologists for formal physical examination and if necessary, other studies. I have communicated my name and active licensure. The patient's identity and physical location were verified at the time of this visit. Either the patient or their legal publications sales representative has been informed of the risks and benefits of -- and alternatives to -- treatment through a remote evaluation and consents to proceed with the evaluation remotely. Accompanied by: Self Primary Problem List: ACTIVE PROBLEM LIST Acid Reflux Diabetes Mellitus (Hcc) Hypothyroidism Iron Deficiency Migraine Myopia of Both Eyes With Astigmatism Wears Contact Lenses Class 3 Severe Obesity Due to Excess Calories With Serious Comorbidity and Body Mass Index (Bmi) of 50.0 to 59.9 in Adult (Hcc) History of Sleep Apnea Electronic Cigarette Use Atypical Chest Pain Chronic Nonintractable Headache Episodic Lightheadedness Iih (Idiopathic Intracranial Hypertension) Sweating Abnormality Early Satiety Anthony (Obstructive Sleep Apnea) Chronic Tension-Type Headache, Intractable Chronic Migraine Without Aura, Intractable, Without Status Migrainosus Bilateral Occipital Neuralgia Cervicalgia Chronic Daily Headache Pulsatile Tinnitus, Right Ear Nummular Headache IUD Threads Lost Attempted IUD Removal, Unsuccessful Anxiety and Depression Irritable Bowel Syndrome With Diarrhea Hereditary Hemochromatosis Chief Complaint: headache Last Office Visit: 06/02/2024 w/ Oren Mills D.O. Impression and Plan from last visit: 33 year old female with history significant for migraine without aura, bradycardia, anxiety, depression, hypothyroid, with chronic daily headache from an overlap of chronic migraine, chronic tension type headache, variable occipital neuralgia, cervical musculoskeletal factors, and chronic post-Covid headache exacerbation. She also has an area of pain in the head which could be consistent with nummular headache vs. distal branch occipital neuralgia. IIH was questioned in the past given R mild occasional pulsatile tinnitus, chronic daily headache, subtle MRI findings, ?TVOs, but there has been no other evidence so far (normal OP of 20, no clear papilledema and assistant quality manager does not suspect). 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 Clinical significance is uncertain and not typical of an IIH pattern, likely incidental anatomical variation. However a referral to cerebrovascular/endovascular was placed for their opinion specifically on this finding and whether further endovascular imaging was warranted (I'm unclear why the visit was deemed inappropriate, but she has a visit with the PA tomorrow to determine how to triage?). PLAN: (Please see typed patient instructions for detailed instructions) ---> Acute Treatment: -Zavzpret ns trial. ---> Preventive Treatment: -Botox every 3 months. -Topamax 100 mg qhs. Discussed future consideration of 100 mg bid titration if she would like. -Supplements discussed. ---> Headache education was done. Discussed lifestyle modification including increased oral hydration, decreased caffeine, exercise and stress management. Discussed treatment options including preventive and acute medications, natural supplements. Discussed medication overuse headache and to limit use of acute treatments to no more than 2 days/week or 10 days/month. Discussed medication side effects, adverse reactions and drug interactions. Written educational materials and patient instructions outlining all of the above were given. ---> Follow-up: for Botox. Interval Headache History: Case Abdi is a 34 year old year old female, with a history of migraine without aura, bradycardia, anxiety, depression, hypothyroid, with chronic daily headache from an overlap of chronic migraine, chronic tension type headache, variable occipital neuralgia, cervical musculoskeletal factors, and chronic post-Covid headache following up today virtually for headaches. Since the last visit, the patient states that her headaches are slightly worse. Headaches: - Case Abdi has a history of migraines, previously managed with Botox injections; discontinued due to insurance issues. - Last Botox injection was in January 2024. - Currently on Topamax 100 mg daily. - No recent use of abortive medications; previously prescribed Zavegepant, but not covered by insurance. - No recent migraines, but Case reports a significant increase in headaches over the past two weeks. - Describes a constant headache localized above the left eye, radiating to the occipital region. - Associated with ocular muscle fatigue and pain, particularly when looking up. - Denies photophobia, nausea, or emesis. - No known triggers or changes in screen time. - Case reports new onset of numbness and tingling in fingers. - Noted altered sensation on the left side of the face, described as tired and weak. - No slurred speech or significant memory issues reported. 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 - MRI scheduled in two weeks; lumbar puncture deferred due to insurance and Case's apprehension. - Upcoming IUD removal procedure under anesthesia on Thursday. Headache 1 Number of migraine headache days/month: 2 Number of headache free days/month: 0 Days missed from work or school in the last month: 0 days Preventative: topamax 100 mg Abortive: none Other Therapies Nerve blocks occipital, supraorbital Analgesic Ketorolac (Toradol) Tramadol (Ultram) Anti-Convulsant Divalproex sodium (Depakote) Gabapentin (Neurontin) Topiramate (Topamax, Trokendi XL, Qudexy) Anti-Depressant and Antipsychotic Bupropion (Wellbutrin) Sertraline (Zoloft) Anti-Migraine Eletriptan (Relpax) Rizatriptan (Maxalt) Sumatriptan (Imitrex, Sumavel) Blood Pressure Lisinopril (Zestril) GEPANTS Ubrogepant (Ubrelvy) did not help, thinks she took but not certain Rimegepant (Nurtec) did not help Botulinum Toxin Onabotulinum Toxin A (Botox) Muscle Relaxer Cyclobenzaprine (Flexeril) Supplements Magnesium Other Medications Methylprednisolone (Medrol) Over the Counter Medications Acetaminophen (Tylenol) Acetaminophen/Aspirin/Caffeine (Excedrin, Goody s) Aspirin Ibuprofen (Advil, Motrin) Naproxen sodium (Aleve) PAST MEDICAL HISTORY Diagnosis Date Anemia Arthritis Bradycardia COVID Generalized anxiety disorder Hypothyroidism Migraines Ovarian cyst PAST SURGICAL HISTORY Procedure Laterality Date BLOOD PATCH after last / epidural - used own blood DELIVERY ONLY x 3 COLONOSCOPY SCREENING EGD W/O [facility] SPEC VARICIES INJ OVARIAN CYSTECTOMY Right 2019 PAST SURGICAL HISTORY OF laparoscopy x 2 TONSILLECTOMY & ADENOIDECTOMY <AGE 12 ALLERGIES No Known Allergies Current Medications: minoxidil (LONITEN) 2.5 mg tablet^Take 2.5 mg by mouth once daily.^Disp: ^Rfl: topiramate (TOPAMAX) 100 mg tablet^Take 1 tablet by mouth daily at bedtime.^Disp: 30 tablet^Rfl: 11 esomeprazole (NEXIUM) 40 mg capsule^TAKE 1 CAPSULE BY MOUTH TWO TIMES A DAY BEFORE MEALS^Disp: 180 capsule^Rfl: 1 hyoscyamine SR (LEVBID) 0.375 mg 12 hr tablet^TAKE 1 TABLET BY MOUTH TWICE A DAY^Disp: 180 tablet^Rfl: 1 (Patient taking differently: Take 0.375 mg by mouth every 12 hours as needed for diarrhea.) multivit with calcium,iron,min (WOMEN'S MULTIPLE VITAMINS ORAL)^Take by mouth once daily.^Disp: ^Rfl: ascorbic acid/vitamin E/biotin (HAIR, SKIN, NAILS WITH BIOTIN ORAL)^Take by mouth.^Disp: ^Rfl: sertraline (ZOLOFT) 25 mg tablet^Take 25 mg by mouth.^Disp: ^Rfl: cholecalciferol, vitamin D3, (VITAMIN D3 ORAL)^Take by mouth.^Disp: ^Rfl: buPROPion XL (WELLBUTRIN XL) 300 mg 24 hr tablet^Take 300 mg by mouth once daily.^Disp: ^Rfl: MAGNESIUM ORAL^Take by mouth.^Disp: ^Rfl: I have reviewed the Marcos Status Assessment responses and discussed these with the patient: yes Michael Hitchcock APRN.SENIOR PLANNING MANAGER HEADACHE SCORES: 02/01/2024 06/02/2024 01/10/2025 Headache Questions ER visits since last office visit: 0 0 0 Hospital stays since last office visit 0 0 0 Limited ADLs in the last month: 3 4 3 Days missed from work or school in the last month: 0 0 0 Days headache pain free in the last month: 7 0 0 Days per month with ALL of the following symptoms - decreased productivity, light sensitivity and nausea: 1 4 2 Initial improvement of headache after botox injection at last visit: Much improved Minimally improved Not applicable, I did not have a botox injection at my last visit PRN medication usage in the last month: 10 15 20 Patient impression of improvement since last visit: No change Minimally worse Much worse 02/01/2024 06/02/2024 01/10/2025 HIT-6 HIT-6 64 (Severe impact) 64 (Severe impact) 65 (Severe impact) 02/01/2024 06/02/2024 01/10/2025 NAYELI - 2/7 SCORES NAYELI-2 Score 5 1 2 NAYELI-7 Score 8 02/01/2024 06/02/2024 01/10/2025 Migraine Specific QOL - Higher scores indicate better HRQL Role Function-Restrictive Transformed Score (range: 0-100) 60 77.14 40 Role Function-Preventive Transformed Score (range: 0-100) 75 80 60 Emotional Function Transformed Score (range: 0-100) 46.67 80 40 02/01/2024 06/02/2024 01/10/2025 PHQ-9 Score 8 8 13 Studies to Review: No MRI Head/Brain - Last 2 Impressions No resulted procedures found. MRA Head and/or Neck - Last 2 Impressions No resulted procedures found. MRI Cervical Spine - Last 2 Impressions No resulted procedures found. MRI Lumbar Spine - Last 2 Impressions No resulted procedures found. MRI Thoracic Spine - Last 2 Impressions No resulted procedures found. MRI Spine - Last 2 Impressions No resulted procedures found. CT Head/Brain - Last 2 Impressions No resulted procedures found. CTA Head and/or Neck - Last 2 No resulted procedures found. Labs to Review: No New Health Issues: No New Family History: No Review of Systems: Review of system: unchanged from the previous visit (sleep patterns, mood, energy, appetite, stress, exercising). Physical Examination: Vital Signs: LMP (LMP Unknown) General: well appearing, in no acute distress, alert Pain Behaviors: no pain behaviors observed Neurological: Mental Status: Alert and oriented to person, place and time. Affect is normal and appropriate. Speech is spontaneous and fluent without dysarthria, normal in rate, volume and articulation, and clear, coherent, and relevant. Short and jail memory, cognition and general fund of knowledge are good. Attention span and concentration are excellent. HEENT: Head is normocephalic and features were symmetric. Musculoskeletal: Patient able to sit up right in chair for entirety of visit. Cranial Nerves: III, IV, -EOMI: full. VII-face is symmetric without evidence of weakness. VIII-hearing intact. ASSESSMENT/PLAN: 1. Chronic daily headache (R51.9) 2. Intractable chronic migraine without aura and without status migrainosus (G43.719) 3. Bilateral occipital neuralgia (M54.81) 4. Cervicalgia (M54.2) 5. Nummular headache (G44.89) - History of chronic migraine and daily headaches previously managed with Botox and Topamax 100 mg; Botox discontinued due to insurance issues. - Recent change in headache pattern: constant, severe pain above left eye radiating posteriorly, with associated ocular muscle fatigue and pain on upward gaze; no associated nausea or photophobia. - No recent trauma, illness, or increased screen time; no slurred speech, memory issues, or weakness. - Start Parafon Forte (chlorzoxazone) TID for 5 days as bridge therapy to relieve current headache symptoms. - Discussed potential side effects of Parafon Forte, including drowsiness. - Advised to delay starting Parafon Forte until after IUD removal procedure under anesthesia. - Discussed alternative treatments if no improvement after MRI and LP, including reintroduction of Botox, trigger point injections with ropivacaine, or trial of different medications. - Follow-up after MRI and LP to reassess and adjust treatment plan as needed. 6. IIH (idiopathic intracranial hypertension) (G93.2) - MRI scheduled in 2 weeks to assess for elevated intracranial pressure. - Advised to move MRI up if possible. - LP to be considered based on MRI results to rule out increased intracranial pressure. - Advised to schedule an eye exam to check intraocular pressure before MRI if possible. - Reviewed prior MRV findings of sinus stenosis, likely congenital and not currently treated unless causing elevated intracranial pressure. - Continue Topamax 100 mg; increase not recommended due to current paresthesia. - Follow-up with brain tumor team after imaging. HEADACHE MANAGEMENT: (You are the primary guardian of your health and headache. Keep track of all medications: This includes the reason for use, side effects and benefits.) MEDICATION TREATMENT: Medications to Start Taking None Discussed pathophysiology of headache. Discussed use of headache diary. Discussed triggers and lifestyle modifications including limiting caffeine consumption. Discussed treatment options, both abortive and preventive medications. Instructed patient about medications. Discussed testing. Headache education was done. Discussed lifestyle modification including increased oral hydration, decreased caffeine, exercise and stress management. Discussed treatment options including preventive and acute medications, natural supplements, and infusion therapy. Discussed medication overuse headache and to limit use of acute treatments to no more than 2 days/week or 10 days/month. Discussed medication side effects, adverse reactions and drug interactions. Written educational materials and patient instructions outlining all of the above were given. Follow-up: 3 months Level of Service: Virtual Visit 20 minutes Recording using Wordy software for draft documentation of the visit was discussed with the patient/authorized publications sales representative; all questions welcomed and answered. Patient/authorized publications sales representative agreed to proceed Michael Hitchcock APRN.CNP Headache Section [facility] January 11, 2025 documented in this encounter [facility] 01-11-2025 Note HNO ID: [id number] Author: MICHAEL HITCHCOCK APRN.CNP Service: ? Author Type: Nurse Practitioner Type: Progress Notes Filed: 01/11/2025 13:23 Note Text: Headache Center - Follow up Virtual Visit Patient's headache clinic evaluation was scheduled as a virtual visit using the following platform Zoom Case Abdi was identified by name and and consented to the video evaluation and its limitations. Based on this evaluation it may be necessary for them to schedule a follow up evaluation with me or other neurologists for formal physical examination and if necessary, other studies. I have communicated my name and active licensure. The patient's identity and physical location were verified at the time of this visit. Either the patient or their legal publications sales representative has been informed of the risks and benefits of -- and alternatives to -- treatment through a remote evaluation and consents to proceed with the evaluation remotely. Accompanied by: Self Primary Problem List: ACTIVE PROBLEM LIST Acid Reflux Diabetes Mellitus (Hcc) Hypothyroidism Iron Deficiency Migraine Myopia of Both Eyes With Astigmatism Wears Contact Lenses Class 3 Severe Obesity Due to Excess Calories With Serious Comorbidity and Body Mass Index (Bmi) of 50.0 to 59.9 in Adult (Hcc) History of Sleep Apnea Electronic Cigarette Use Atypical Chest Pain Chronic Nonintractable Headache Episodic Lightheadedness Iih (Idiopathic Intracranial Hypertension) Sweating Abnormality Early Satiety Anthony (Obstructive Sleep Apnea) Chronic Tension-Type Headache, Intractable Chronic Migraine Without Aura, Intractable, Without Status Migrainosus Bilateral Occipital Neuralgia Cervicalgia Chronic Daily Headache Pulsatile Tinnitus, Right Ear Nummular Headache IUD Threads Lost Attempted IUD Removal, Unsuccessful Anxiety and Depression Irritable Bowel Syndrome With Diarrhea Hereditary Hemochromatosis Chief Complaint: headache Last Office Visit: 06/02/2024 w/ Oren Mills D.O. Impression and Plan from last visit: 33 year old female with history significant for migraine without aura, bradycardia, anxiety, depression, hypothyroid, with chronic daily headache from an overlap of chronic migraine, chronic tension type headache, variable occipital neuralgia, cervical musculoskeletal factors, and chronic post-Covid headache exacerbation. She also has an area of pain in the head which could be consistent with nummular headache vs. distal branch occipital neuralgia. IIH was questioned in the past given R mild occasional pulsatile tinnitus, chronic daily headache, subtle MRI findings, ?TVOs, but there has been no other evidence so far (normal OP of 20, no clear papilledema and assistant quality manager does not suspect). 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 Clinical significance is uncertain and not typical of an IIH pattern, likely incidental anatomical variation. However a referral to cerebrovascular/endovascular was placed for their opinion specifically on this finding and whether further endovascular imaging was warranted (I'm unclear why the visit was deemed inappropriate, but she has a visit with the PA tomorrow to determine how to triage?). PLAN: (Please see typed patient instructions for detailed instructions) ---> Acute Treatment: -Zavzpret ns trial. ---> Preventive Treatment: -Botox every 3 months. -Topamax 100 mg qhs. Discussed future consideration of 100 mg bid titration if she would like. -Supplements discussed. ---> Headache education was done. Discussed lifestyle modification including increased oral hydration, decreased caffeine, exercise and stress management. Discussed treatment options including preventive and acute medications, natural supplements. Discussed medication overuse headache and to limit use of acute treatments to no more than 2 days/week or 10 days/month. Discussed medication side effects, adverse reactions and drug interactions. Written educational materials and patient instructions outlining all of the above were given. ---> Follow-up: for Botox. Interval Headache History: Case Abdi is a 34 year old year old female, with a history of migraine without aura, bradycardia, anxiety, depression, hypothyroid, with chronic daily headache from an overlap of chronic migraine, chronic tension type headache, variable occipital neuralgia, cervical musculoskeletal factors, and chronic post-Covid headache following up today virtually for headaches. Since the last visit, the patient states that her headaches are slightly worse. Headaches: - Case Abdi has a history of migraines, previously managed with Botox injections; discontinued due to insurance issues. - Last Botox injection was in January 2024. - Currently on Topamax 100 mg daily. - No recent use of abortive medications; previously prescribed Zavegepant (more content not included)... [facility] 12-30-2024 History and physical note Images from the original note were not included. [facility] Pre[facility] HISTORY AND PHYSICAL EXAMINATION SERVICE DATE: 12/30/2024 SERVICE TIME: 10:35 AM PRIMARY CARE PHYSICIAN: Vargas Malhotra, DO Assessment Patient has the following medical conditions which may affect herbert-operative course: Chronic migraine without aura, intractable, without status migrainosus Assessment: reports much improvement on topiramate (TOPAMAX), rare headache now. Continue as prescribed ANTHONY (obstructive sleep apnea) Assessment: Polysomnogram completed 2022. AHI = 20.6, LONG = 0 Patient reports non-compliance with CPAP Acid reflux Assessment: Stable on RX, continue as prescribed ESOMEPRAZOLE MAGNESIUM Class 3 severe obesity due to excess calories with serious comorbidity and body mass index (BMI) of 50.0 to 59.9 in adult (HCC) Assessment: Body mass index is 52.13 kg/m . Anxiety and depression Assessment: Stable on RX, continue as prescribed sertraline (ZOLOFT) and buPROPion XL (WELLBUTRIN XL). Denies concerning symptoms Irritable bowel syndrome with diarrhea Assessment: reports abdominal pain Hereditary hemochromatosis Assessment: was having weekly phlebotomy, but reports less currently. Followed by PCP ANESTHESIA FINDINGS: Intubation History: No history of difficult intubation. No abnormal airway history Significant Anesthesia Considerations: none Airway History: No history of difficult airway No abnormal airway history Hall Activity Status Index: METS: Walk indoors, such as around the house (1.75 METs) Do light work around the house, such as dusting or washing dishes (2.70 METs) Take care of self; that is eating, dressing, bathing, using the toilet (2.75 METs) Walk a block or two on level ground (2.75 METs) Do moderate work around the house, such as vacuuming, sweeping floors, or carrying in groceries (3.50 METs) Do yardwork, such as raking leaves, weeding, or pushing a power mower (4.50 METs) Have sexual relations (5.25 METs) Climb a flight of stairs or walk up a hill (5.50 METs) Participate in moderate recreational activites, such as golf, bowling, dancing, doubles tennis, or throwing a baseball or football (6.00 METs) Do heavy work around the house, such as scrubbing floors, lifting or moving heavy furniture (8.00 METs) Cannot participate in strenuous sport, such as swimming, singles tennis, football, basketball, or skiing Cannot run a short distance DASI Score: 42.7 Patient denies any chest pain or undue shortness of breath with the above physical activity. Clinical Frailty Scale: 3. Well, with treated comorbid disease STOP-Bang Score: STOP-Bang Score: (+ ANTHONY, doesn't use CPAP regularly) [id number] Score: Age: <65 Sex: female CHF history: No Vascular disease history: No Diabetes history: No [id number] Score: ARISCAT Score: Age: <=50 Respiratory infection in the last month: No Preoperative anemia: Yes Surgical incision: upper abdominal Duration of surgery: <2 hrs Emergency procedure: No ARISCAT Score: I - PHYSICAL EVALUATION AIRWAY Patient intubated: No. Tracheostomy tube not present Mallampati: I. TM distance: >3 FB. Neck ROM: full ROM without neurological symptoms. Mouth opening: adequate. Short neck: no. Thick neck: yes Keys present: no Lip Bite Test: II DENTAL Dental findings: teeth intact. II - ANESTHESIA PLAN Anesthetic Plan: other Anesthetic plan additional comments: *PACC/TCI - anesthesia choice. Beta Liss Monitoring Plan Post Procedure Analgesic Plan Prepared for Surgery: optimally prepared for surgery. Per PACC guidelines no other testing is required CONSULTS: Patient does not require consults for optimization at this time Planned Anesthetic: other anesthesia choice This is a virtual visit using Snipshot video visit. It required patient-provider interaction for the medical decision making as documented below. REASON FOR VISIT: Case Abdi is a 34 year old female who is scheduled for Procedure(s): REMOVE IUD NON EMBEDDED W/ HYSTEROSCOPY (N/A) at the request of Gail Gilmore DO for consultation. My final recommendation will be communicated back to the requesting physician by way of shared medical record or letter. Subjective The patient has the following: ACTIVE PROBLEM LIST Acid Reflux Diabetes Mellitus (Hcc) Hypothyroidism Iron Deficiency Migraine Myopia of Both Eyes With Astigmatism Wears Contact Lenses Class 3 Severe Obesity Due to Excess Calories With Serious Comorbidity and Body Mass Index (Bmi) of 50.0 to 59.9 in Adult (Hcc) History of Sleep Apnea Electronic Cigarette Use Atypical Chest Pain Chronic Nonintractable Headache Episodic Lightheadedness Iih (Idiopathic Intracranial Hypertension) Sweating Abnormality Early Satiety Anthony (Obstructive Sleep Apnea) Chronic Tension-Type Headache, Intractable Chronic Migraine Without Aura, Intractable, Without Status Migrainosus Bilateral Occipital Neuralgia Cervicalgia Chronic Daily Headache Pulsatile Tinnitus, Right Ear Nummular Headache IUD Threads Lost Attempted IUD Removal, Unsuccessful Anxiety and Depression Irritable Bowel Syndrome With Diarrhea Hereditary Hemochromatosis COVID-19 Immunization Status This patient has no relevant Health Maintenance data. CHIEF COMPLAINT: Pre-anesthesia optimization HPI: Case Abdi is a 34 year old female presenting for pre-anesthesia consultation. Pt has history of hemachromatosis and IUD removal was recommended. IUD with lost threads and unable to remove in office. Above procedure recommended to manage symptoms. Procedure scheduled on 01/13/2025 at . This is a virtual visit. The visit was conducted using Snipshot video visit. It required patient-provider interaction for the medical decision making as documented below. I have communicated my name and active licensure. The patient's identity and physical location were verified at the time of this visit. Either the patient or their legal publications sales representative has been informed of the risks and benefits of and alternatives to treatment through a remote evaluation and consents to proceed with the evaluation remotely. REVIEW OF SYSTEMS: General: No weight loss, malaise or fevers. Neurological: Positive for: headaches (improved with topiramate, rare now). Negative for: multiple sclerosis, Parkinson's disease, seizures and strokes. Respiratory: Positive for: tobacco use (former smoker), obstructive sleep apnea and CPAP/BiPAP noncompliant. Negative for: asthma, COPD, current cough and URI < 2 weeks. Cardiovascular: Positive for: arrhythmia (reports low resting HR) Negative for: atrial fibrillation, chest pain, DVT/PE, hyperlipidemia, hypertension and murmur/valvular heart disease. GI: Positive for: abdominal pain, GERD and irritable bowel syndrome (diarrhea) Negative for: dysphagia, inflammatory bowel disease, liver disease and ETOH >2 drinks/day. : No history of dysuria, frequency or incontinence, stones or chronic kidney disease. No difficulty urinating, nocturia > 1 time per night or hematuria. 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 Endocrine: No history of diabetes. Has not taken steroids within the past 30 days. No history of endocrinological symptoms or problems. Hematology: See HPI. No history of bleeding or clotting disorder. Patient is not taking anti-coagulation or platelet medications. No history of hematological symptoms or problems. Oncology: No history of CA metastasis, chemo within 30 days, or radiotherapy within 90 days. No history of oncological symptoms or problems. Psych: Positive for: anxiety and depression. Musculoskeletal: Positive for: back pain. Skin: Negative for lesions, rash and itching. Implanted Devices: No implanted devices. PAST MEDICAL HISTORY Diagnosis Date Anemia Arthritis Bradycardia COVID Generalized anxiety disorder Hypothyroidism Migraines Ovarian cyst PAST SURGICAL HISTORY Procedure Laterality Date BLOOD PATCH after last / epidural - used own blood DELIVERY ONLY x 3 COLONOSCOPY SCREENING EGD W/O BRSH SPEC VARICIES INJ OVARIAN CYSTECTOMY Right 2019 PAST SURGICAL HISTORY OF laparoscopy x 2 TONSILLECTOMY & ADENOIDECTOMY FAMILY HISTORY Problem Relation Age of Onset No Ocular Disease Mother Thyroid Mother Anesthesia Problems Mother PONV No Ocular Disease Father Parkinson s Disease Father Thyroid Sister No Ocular Disease Maternal Grandmother No Ocular Disease Maternal Grandfather No Ocular Disease Paternal Grandmother No Ocular Disease Paternal Grandfather Heart disease Paternal great-grandparent Heart Attack Paternal great-grandparent Blood Clots No Family History Clotting Disorder No Family History SOCIAL HISTORY[1] Prior to Admission medications as of 12/30/24 0956 Medication Sig Last Dose Taking minoxidil (LONITEN) 2.5 mg tablet Take 2.5 mg by mouth once daily. Yes topiramate (TOPAMAX) 100 mg tablet Take 1 tablet by mouth daily at bedtime. Yes esomeprazole (NEXIUM) 40 mg capsule TAKE 1 CAPSULE BY MOUTH TWO TIMES A DAY BEFORE MEALS Yes hyoscyamine SR (LEVBID) 0.375 mg 12 hr tablet TAKE 1 TABLET BY MOUTH TWICE A DAY Patient taking differently: Take 0.375 mg by mouth every 12 hours as needed for diarrhea. Yes multivit with calcium,iron,min (WOMEN'S MULTIPLE VITAMINS ORAL) Take by mouth once daily. Yes ascorbic acid/vitamin E/biotin (HAIR, SKIN, NAILS WITH BIOTIN ORAL) Take by mouth. Yes sertraline (ZOLOFT) 25 mg tablet Take 25 mg by mouth. Yes cholecalciferol, vitamin D3, (VITAMIN D3 ORAL) Take by mouth. Yes buPROPion XL (WELLBUTRIN XL) 300 mg 24 hr tablet Take 300 mg by mouth once daily. Yes MAGNESIUM ORAL Take by mouth. Yes No medication comments found. ALLERGIES No Known Allergies Objective PHYSICAL EXAM: (if completed, exam performed via video enabled technology) General: alert and oriented, healthy appearance and morbidly obese. Pertinent negatives noted - not distressed. Skin: No rashes noted. HEENT: Normocephalic. EOM intact, no injection, visual acuity is grossly normal. External nose normal without rhinorrhea. Moist mucous membranes. Full neck ROM, no cervical LNs noted.. Cardiovascular: Patient appears pink and well hydrated/oxygenated on video. Capillary refill <3 seconds in bilateral upper extremities.. Respiratory: Breathing non-labored, equal chest rise with normal respiratory effort.. Abdomen: Deferred.. Extremities: No gross deformities of extremities.. Neurological: No obvious deficits.. PAIN ASSESSMENT: VITALS: Ht 5' 2 [per pt[ (1.58m) Wt 285 lb (129.3kg) BMI 52.11 kg/(m^2). Diagnostic tests reviewed for today's visit: Lab Value Units Date High Low HB No results within date range. HCT No results within date range. WBC No results within date range. PLT No results within date range. NA No results within date range. K No results within date range. GLUC No results within date range. BUN No results within date range. CREAT No results within date range. PTSEC No results within date range. INR No results within date range. APTT No results within date range. ALT No results within date range. AST No results within date range. TBILI No results within date range. TSH No results within date range. Lab Value Units Date High Low HCGQT No results within date range. UHCG No results within date range. HCG, BODY* No results within date range. Lab Value Units Date High Low ABORHD No results within date range. ABSCREEN No results within date range. Hemoglobin A1C (%) Date Value 12/30/2022 4.5 Recent Results (from the past 8760 hours) ECG COMPLETE Collection Time: 02/23/24 10:00 AM Result Value Ventricular Rate 69 Atrial Rate 69 P-R Interval 172 QRS Duration 86 QT Interval 382 QTC Calculation (Bazett) 409 Calculated P [place] 56 Calculated R [place] 88 Calculated T [place] 52 Impression NORMAL SINUS RHYTHM WITH SINUS ARRHYTHMIA NORMAL ECG Recent Results (from the past 30054 hours) ECHO Collection Time: 02/15/24 8:13 AM Impression CONCLUSIONS: - Exam indication: Pleurisy - The left ventricle is normal in size. Left ventricular systolic function is normal. EF = 61 5% (2D biplane) Normal left ventricular diastolic function. - The right ventricle is normal in size. Right ventricular systolic function is normal. - There are no significant valvular abnormalities. - The patient has not had a prior CC echocardiographic exam for comparison. * * * Final * * * The Following Tests/Procedures Have Been Initiated: No orders of the defined types were placed in this encounter. Instructions Given to Patient: Instructions located in the after visit summary. Patient given verbal and written preop instructions and voices comprehension and compliance. SIGNATURE: Chito Peña PA-C PATIENT NAME: Case Abdi DATE: 12/30/2024 TIME: 9:54 AM PAGER/CONTACT #: I spent 30 minutes in the visit, with more than 50% of the total [id number] time of the visit in counseling / coordination of care. [1] Social History Tobacco Use Smoking status: Former Current packs/day: 0.00 Types: Cigarettes Start date: 10/2010 Quit date: 2018 Years since quittin.6 Smokeless tobacco: Never Tobacco comments: Vaping Use Vaping status: Some Days Substances: Nicotine, Flavoring Devices: Disposable Substance Use Topics Alcohol use: Yes Comment: 1-2 drinks per month Drug use: Not Currently Types: Marijuana Comment: previously tried marijuana for MARTINEZ, but got bad anxiety T [facility] 12-30-2024 History and physical note Images from the original note were not included. [facility] Pre[facility]Anest[facility] Consultation [facility] HISTORY AND PHYSICAL EXAMINATION SERVICE DATE: 12/30/2024 SERVICE TIME: 10:35 AM PRIMARY CARE PHYSICIAN: Vargas Malhotra DO Assessment Patient has the following medical conditions which may affect herbert-operative course: Chronic migraine without aura, intractable, without status migrainosus Assessment: reports much improvement on topiramate (TOPAMAX), rare headache now. Continue as prescribed ANTHONY (obstructive sleep apnea) Assessment: Polysomnogram completed 2022. AHI = 20.6, LONG = 0 Patient reports non-compliance with CPAP Acid reflux Assessment: Stable on RX, continue as prescribed ESOMEPRAZOLE MAGNESIUM Class 3 severe obesity due to excess calories with serious comorbidity and body mass index (BMI) of 50.0 to 59.9 in adult ([facility]) Assessment: Body mass index is 52.13 kg/m . Anxiety and depression Assessment: Stable on RX, continue as prescribed sertraline (ZOLOFT) and buPROPion XL (WELLBUTRIN XL). Denies concerning symptoms Irritable bowel syndrome with diarrhea Assessment: reports abdominal pain Hereditary hemochromatosis Assessment: was having weekly phlebotomy, but reports less currently. Followed by PCP ANESTHESIA FINDINGS: Intubation History: No history of difficult intubation. No abnormal airway history Significant Anesthesia Considerations: none Airway History: No history of difficult airway No abnormal airway history Hall Activity Status Index: METS: Walk indoors, such as around the house (1.75 METs) Do light work around the house, such as dusting or washing dishes (2.70 METs) Take care of self; that is eating, dressing, bathing, using the toilet (2.75 METs) Walk a block or two on level ground (2.75 METs) Do moderate work around the house, such as vacuuming, sweeping floors, or carrying in groceries (3.50 METs) Do yardwork, such as raking leaves, weeding, or pushing a power mower (4.50 METs) Have sexual relations (5.25 METs) Climb a flight of stairs or walk up a hill (5.50 METs) Participate in moderate recreational activites, such as golf, bowling, dancing, doubles tennis, or throwing a baseball or football (6.00 METs) Do heavy work around the house, such as scrubbing floors, lifting or moving heavy furniture (8.00 METs) Cannot participate in strenuous sport, such as swimming, singles tennis, football, basketball, or skiing Cannot run a short distance DASI Score: 42.7 Patient denies any chest pain or undue shortness of breath with the above physical activity. Clinical Frailty Scale: 3. Well, with treated comorbid disease STOP-Bang Score: STOP-Bang Score: (+ ANTHONY, doesn't use CPAP regularly) [id number] Score: Age: <65 Sex: female CHF history: No Vascular disease history: No Diabetes history: No [id number] Score: ARISCAT Score: Age: <=50 Respiratory infection in the last month: No Preoperative anemia: Yes Surgical incision: upper abdominal Duration of surgery: <2 hrs Emergency procedure: No ARISCAT Score: I - PHYSICAL EVALUATION AIRWAY Patient intubated: No. Tracheostomy tube not present Mallampati: I. TM distance: >3 FB. Neck ROM: full ROM without neurological symptoms. Mouth opening: adequate. Short neck: no. Thick neck: yes Keys present: no Lip Bite Test: II DENTAL Dental findings: teeth intact. II - ANESTHESIA PLAN Anesthetic Plan: other Anesthetic plan additional comments: *PACC/TCI - anesthesia choice. Beta Liss Monitoring Plan Post Procedure Analgesic Plan Prepared for Surgery: optimally prepared for surgery. Per PACC guidelines no other testing is required CONSULTS: Patient does not require consults for optimization at this time Planned Anesthetic: other anesthesia choice This is a virtual visit using Snipshot video visit. It required patient-provider interaction for the medical decision making as documented below. REASON FOR VISIT: Case Abdi is a 34 year old female who is scheduled for Procedure(s): REMOVE IUD NON EMBEDDED W/ HYSTEROSCOPY (N/A) at the request of Gail Gilmore DO for consultation. My final recommendation will be communicated back to the requesting physician by way of shared medical record or letter. Subjective The patient has the following: ACTIVE PROBLEM LIST Acid Reflux Diabetes Mellitus (Hcc) Hypothyroidism Iron Deficiency Migraine Myopia of Both Eyes With Astigmatism Wears Contact Lenses Class 3 Severe Obesity Due to Excess Calories With Serious Comorbidity and Body Mass Index (Bmi) of 50.0 to 59.9 in Adult (Hcc) History of Sleep Apnea Electronic Cigarette Use Atypical Chest Pain Chronic Nonintractable Headache Episodic Lightheadedness Iih (Idiopathic Intracranial Hypertension) Sweating Abnormality Early Satiety Anthony (Obstructive Sleep Apnea) Chronic Tension-Type Headache, Intractable Chronic Migraine Without Aura, Intractable, Without Status Migrainosus Bilateral Occipital Neuralgia Cervicalgia Chronic Daily Headache Pulsatile Tinnitus, Right Ear Nummular Headache IUD Threads Lost Attempted IUD Removal, Unsuccessful Anxiety and Depression Irritable Bowel Syndrome With Diarrhea Hereditary Hemochromatosis COVID-19 Immunization Status This patient has no relevant Health Maintenance data. CHIEF COMPLAINT: Pre-anesthesia optimization HPI: Case Abdi is a 34 year old female presenting for pre-anesthesia consultation. Pt has history of hemachromatosis and IUD removal was recommended. IUD with lost threads and unable to remove in office. Above procedure recommended to manage symptoms. Procedure scheduled on 01/13/2025 at . This is a virtual visit. The visit was conducted using Snipshot video visit. It required patient-provider interaction for the medical decision making as documented below. I have communicated my name and active licensure. The patient's identity and physical location were verified at the time of this visit. Either the patient or their legal publications sales representative has been informed of the risks and benefits of and alternatives to treatment through a remote evaluation and consents to proceed with the evaluation remotely. REVIEW OF SYSTEMS: General: No weight loss, malaise or fevers. Neurological: Positive for: headaches (improved with topiramate, rare now). Negative for: multiple sclerosis, Parkinson's disease, seizures and strokes. Respiratory: Positive for: tobacco use (former smoker), obstructive sleep apnea and CPAP/BiPAP noncompliant. Negative for: asthma, COPD, current cough and URI < 2 weeks. Cardiovascular: Positive for: arrhythmia (reports low resting HR) Negative for: atrial fibrillation, chest pain, DVT/PE, hyperlipidemia, hypertension and murmur/valvular heart disease. GI: Positive for: abdominal pain, GERD and irritable bowel syndrome (diarrhea) Negative for: dysphagia, inflammatory bowel disease, liver disease and ETOH >2 drinks/day. : No history of dysuria, frequency or incontinence, stones or chronic kidney disease. No difficulty urinating, nocturia > 1 time per night or hematuria. 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 Endocrine: No history of diabetes. Has not taken steroids within the past 30 days. No history of endocrinological symptoms or problems. Hematology: See HPI. No history of bleeding or clotting disorder. Patient is not taking anti-coagulation or platelet medications. No history of hematological symptoms or problems. Oncology: No history of CA metastasis, chemo within 30 days, or radiotherapy within 90 days. No history of oncological symptoms or problems. Psych: Positive for: anxiety and depression. Musculoskeletal: Positive for: back pain. Skin: Negative for lesions, rash and itching. Implanted Devices: No implanted devices. PAST MEDICAL HISTORY Diagnosis Date Anemia Arthritis Bradycardia COVID Generalized anxiety disorder Hypothyroidism Migraines Ovarian cyst PAST SURGICAL HISTORY Procedure Laterality Date BLOOD PATCH after last / epidural - used own blood DELIVERY ONLY x 3 COLONOSCOPY SCREENING EGD W/O BRSH SPEC VARICIES INJ OVARIAN CYSTECTOMY Right 2018 PAST SURGICAL HISTORY OF laparoscopy x 2 TONSILLECTOMY & ADENOIDECTOMY <AGE 12 FAMILY HISTORY Problem Relation Age of Onset No Ocular Disease Mother Thyroid Mother Anesthesia Problems Mother PONV No Ocular Disease Father Parkinson s Disease Father Thyroid Sister No Ocular Disease Maternal Grandmother No Ocular Disease Maternal Grandfather No Ocular Disease Paternal Grandmother No Ocular Disease Paternal Grandfather Heart disease Paternal great-grandparent Heart Attack Paternal great-grandparent Blood Clots No Family History Clotting Disorder No Family History SOCIAL HISTORY[1] Prior to Admission medications as of 12/30/24 0956 Medication Sig Last Dose Taking minoxidil (LONITEN) 2.5 mg tablet Take 2.5 mg by mouth once daily. Yes topiramate (TOPAMAX) 100 mg tablet Take 1 tablet by mouth daily at bedtime. Yes esomeprazole (NEXIUM) 40 mg capsule TAKE 1 CAPSULE BY MOUTH TWO TIMES A DAY BEFORE MEALS Yes hyoscyamine SR (LEVBID) 0.375 mg 12 hr tablet TAKE 1 TABLET BY MOUTH TWICE A DAY Patient taking differently: Take 0.375 mg by mouth every 12 hours as needed for diarrhea. Yes multivit with calcium,iron,min (WOMEN'S MULTIPLE VITAMINS ORAL) Take by mouth once daily. Yes ascorbic acid/vitamin E/biotin (HAIR, SKIN, NAILS WITH BIOTIN ORAL) Take by mouth. Yes sertraline (ZOLOFT) 25 mg tablet Take 25 mg by mouth. Yes cholecalciferol, vitamin D3, (VITAMIN D3 ORAL) Take by mouth. Yes buPROPion XL (WELLBUTRIN XL) 300 mg 24 hr tablet Take 300 mg by mouth once daily. Yes MAGNESIUM ORAL Take by mouth. Yes No medication comments found. ALLERGIES No Known Allergies Objective PHYSICAL EXAM: (if completed, exam performed via video enabled technology) General: alert and oriented, healthy appearance and morbidly obese. Pertinent negatives noted - not distressed. Skin: No rashes noted. HEENT: Normocephalic. EOM intact, no injection, visual acuity is grossly normal. External nose normal without rhinorrhea. Moist mucous membranes. Full neck ROM, no cervical LNs noted.. Cardiovascular: Patient appears pink and well hydrated/oxygenated on video. Capillary refill <3 seconds in bilateral upper extremities.. Respiratory: Breathing non-labored, equal chest rise with normal respiratory effort.. Abdomen: Deferred.. Extremities: No gross deformities of extremities.. Neurological: No obvious deficits.. PAIN ASSESSMENT: VITALS: Ht 5' 2 [per pt[ (1.58m) Wt 285 lb (129.3kg) BMI 52.11 kg/(m^2). Diagnostic tests reviewed for today's visit: Lab Value Units Date High Low HB No results within date range. HCT No results within date range. WBC No results within date range. PLT No results within date range. NA No results within date range. K No results within date range. GLUC No results within date range. BUN No results within date range. CREAT No results within date range. PTSEC No results within date range. INR No results within date range. APTT No results within date range. ALT No results within date range. AST No results within date range. TBILI No results within date range. TSH No results within date range. Lab Value Units Date High Low HCGQT No results within date range. UHCG No results within date range. HCG, BODY* No results within date range. Lab Value Units Date High Low ABORHD No results within date range. ABSCREEN No results within date range. Hemoglobin A1C (%) Date Value 12/30/2022 4.5 Recent Results (from the past 8760 hours) ECG COMPLETE Collection Time: 02/23/24 10:00 AM Result Value Ventricular Rate 69 Atrial Rate 69 P-R Interval 172 QRS Duration 86 QT Interval 382 QTC Calculation (Bazett) 409 Calculated P [place] 56 Calculated R [place] 88 Calculated T [place] 52 Impression NORMAL SINUS RHYTHM WITH SINUS ARRHYTHMIA NORMAL ECG Recent Results (from the past 76961 hours) ECHO Collection Time: 02/15/24 8:13 AM Impression CONCLUSIONS: - Exam indication: Pleurisy - The left ventricle is normal in size. Left ventricular systolic function is normal. EF = 61 5% (2D biplane) Normal left ventricular diastolic function. - The right ventricle is normal in size. Right ventricular systolic function is normal. - There are no significant valvular abnormalities. - The patient has not had a prior [facility] echocardiographic exam for comparison. * * * Final * * * The Following Tests/Procedures Have Been Initiated: No orders of the defined types were placed in this encounter. Instructions Given to Patient: Instructions located in the after visit summary. Patient given verbal and written preop instructions and voices comprehension and compliance. SIGNATURE: Chito Peña PA-C PATIENT NAME: Case Abdi DATE: 12/30/2024 TIME: 9:54 AM PAGER/CONTACT #: I spent 30 minutes in the visit, with more than 50% of the total futo-rj-eydr time of the visit in counseling / coordination of care. [1] Social History Tobacco Use Smoking status: Former Current packs/day: 0.00 Types: Cigarettes Start date: 10/2010 Quit date: 2018 Years since quittin.6 Smokeless tobacco: Never Tobacco comments: Vaping Use Vaping status: Some Days Substances: Nicotine, Flavoring Devices: Disposable Substance Use Topics Alcohol use: Yes Comment: 1-2 drinks per month Drug use: Not Currently Types: Marijuana Comment: previously tried marijuana for MARTINEZ, but got bad anxiety documented in this encounter [facility] 12-30-2024 Instructions Chito Peña PA-C - 12/30/2024 9:57 AM EDT Images from the original note were not included. [facility] PATIENT PREOPERATIVE INSTRUCTIONS Gail Engel DO has scheduled you for your procedure at this surgery center: [facility]: [phone] -- [address] [place] [address]. Arrival Time for Surgery: -You will receive a call from [facility] the afternoon before surgery after 2:30 pm (or Thursday for Thursday surgery) for a scheduled arrival time. - If you have not heard by 4 pm, please contact [facility] at [phone]. Please be aware that emergency situations arise, which may delay or change your surgical time. If this happens, we will notify you as soon as possible and regret any inconvenience. Please read below carefully for your personalized instructions. Dietary Restrictions: - No solid food after midnight. - You may have 12 ounces of clear liquids (water, clear juices such as apple juice or gatorade, carbonated beverages, clear tea, black coffee, jello) until 2 hours before scheduled arrival at facility. - Do not drink any alcohol after midnight the night before your surgery. - No Milk/Dairy - No Pulp Juices Medications: Unless instructed differently below, stay on all of your medications until your surgery. Approved medications to take the morning of surgery with a sip of water: ESOMEPRAZOLE MAGNESIUM, sertraline (ZOLOFT), buPROPion XL (WELLBUTRIN XL) If you are currently using a bczc-rma-vsyg injectable or oral medication for diabetes or weight loss such as Dulaglutide (Trulicity), Exenatide (Byetta, Bydureon), Liraglutide (Victoza, Saxenda), Semaglutide (Ozempic, Wegovy, Rybelsus), or Tirzepatide (Mounjaro), the medicine should be stopped at least 7 days before surgery. These medicines can cause food to remain in your stomach for a very long time and increase the risks from surgery and anesthesia. Not stopping the medication for a long enough time may result in your surgery being rescheduled. If you start any new medications after today's visit, please contact the surgeon's office. Blood Thinning Medications: - Stop NSAIDS (Ibuprofen, Advil, Aleve, Motrin, Celebrex, Mobic, etc.) 7 days before surgery, as directed by your surgeon. - Stop Aspirin 7 days before surgery, as directed by your surgeon. - Stop herbals and dietary supplements 7 days before surgery. Ok to continue vitamins, but hold day of surgery. - You may take Tylenol (Acetaminophen) or any of your pain medications that do not contain aspirin or NSAIDS as needed. IF YOUR SURGEON HAS PROVIDED YOU WITH MORE RESTRICTIVE INSTRUCTIONS REGARDING MEDICATIONS OR DIET, THEN PLEASE FOLLOW THOSE. Important Reminders: - Candy, mints, and tobacco products are NOT permitted the morning of surgery. - Hearing aids, dentures and glasses may be worn the morning of surgery. - NO jewelry, body piercings, makeup, hairpins or contacts are to be worn the day of surgery. If you develop symptoms such as a fever, cold, or flu, or have other changes to your health within TWO DAYS of scheduled surgery or the morning of surgery, please contact the surgery center above. Personal Belongings: -Please have photo ID and insurance cards. -If you do not have a copy of advance directives on file with us, please bring a copy with you on the day of surgery. - Leave ALL valuables and money at home or with family members. For Outpatient Procedures: - YOU MUST HAVE A RESPONSIBLE RADIATION ONCOLOGY NURSE TAKE YOU HOME. A CROP SPECIALIST OR INTEGRATION LEAD CANNOT BE MADE A RESPONSIBLE RADIATION ONCOLOGY NURSE. - We recommend that a responsible person stays with you overnight to take care of you. - You cannot stay in a hotel alone after outpatient surgery. You will not be permitted to have your surgery, if you do not have someone to take care of you. If you already have an Advance Directive, please fax a copy to [phone] or email to for it to be added to your chart. If you do not have an Advance Directive, you can find the appropriate form and more information at [email or web address]. We recommend that you complete the Advance Directive form found on the website and bring it with you the day of your surgery. It can be witnessed and scanned into your chart that day. Chito Peña PA-C [place] [facility] documented in this encounter [facility] 12-12-2024 History of Present illness Narrative Point of care ultrasound was performed. See imaging tab for details. The sensitive examination was discussed with the Patient or Patient's Authorized Staff Attorney. As applicable, any other physician, advance practice provider, medical student, or other health professional student that will be observing or involved in the sensitive examination for educational or training purposes was discussed with the Patient or Authorized Staff Attorney. The Patient or Authorized Staff Attorney has agreed to proceed with the sensitive examination. Gail Engel DO documented in this encounter [facility] 12-12-2024 Note HNO ID: [id number] Author: GAIL ENGEL DO Service: ? Author Type: Physician Type: Progress Notes Filed: 12/12/2024 15:10 Note Text: Point of care ultrasound was performed. See imaging tab for details. The sensitive examination was discussed with the Patient or Patient's Authorized Staff Attorney. As applicable, any other physician, advance practice provider, medical student, or other health professional student that will be observing or involved in the sensitive examination for educational or training purposes was discussed with the Patient or Authorized Staff Attorney. The Patient or Authorized Staff Attorney has agreed to proceed with the sensitive examination. Gail Engel DO [facility] 12-12-2024 Note HNO ID: [id number] Author: GAIL ENGEL DO Service: ? Author Type: Physician Type: Procedures Filed: 12/12/2024 15:10 Note Text: COMPLEX CONTRACEPTION - IUD REMOVAL Case Abdi presents today for IUD removal due to pain Referred by Patti Rutherford PA because IUD strings missing IUD type: Mirena (Progesterone) per pt, insertion note not available Prior US confirmed intrauterine location:Yes PELVIC US WHI (09/29/2024 8:44 AM) Correct position noted Pt counseled on hysteroscopic vs US guided removal and pt opts for office US guided removal Informed consent obtained. UNIVERSAL PROTOCOL / SAFETY CHECKLIST Procedure to be Performed: Paracervical block, IUD removal, possible cervical dilation, US guidance Sign In: A Moment of CARE was completed. Personnel directly involved with the procedure wore the appropriate PPE (Personal Protective Equipment). Patient/Surrogate Stated/Verified: PATIENT VERIFIED(optional for EMERGENT procedures): Patient name, Date of , Relevant allergies, and The intended procedure Time Out Communication: Intended patient and procedure match the source documents. Consent documented and matches the intended procedure. Relevant labs, photos, and/or imaging studies have been reviewed. Medications required for procedure verified. No fire risk assessment and interventions applicable. No implant(s) inserted. Sign Out: SIGN OUT (optional for EMERGENT procedures): No specimen collected. All instruments, equipment, possible retained foreign bodies accounted for. Post-procedure follow-up management communicated and Plan of Care Visit completed when applicable. Gail Engel DO PROCEDURE DETAILS Bimanual exam revealed anteverted uterus. A speculum was inserted. Cervix was prepped with betadine. A paracervical block was administered with 20 mL of 1% lidocaine without epinephrine A tenaculum was placed at 12 oclock Attempt to pass the alligator forcep through the internal os was unsuccessful to sharp anteverted angle between cervix and uterus The cervix was dilated to 18 hanks and the alligator forcep could not be passed beyond the internal os The patient requested that the procedure be stopped due to pain Hemostasis was noted. All instruments were removed. The patient tolerated the procedure fair. PLAN: IUD was not removed; procedure discontinued due to pain Recommend removal in OR; will need hospital due to BMI/comorbid conditions Pt is s/p tubal ligation I explained the risks of surgery including pain, bleeding, infection, injury to abdominal organs such as bladder or bowel, injury to vagina, uterus, or cervix, inability to complete the procedure, failure to obtain a correct diagnosis, DVT/PE, anesthetic complications, and . Her questions were answered. Written informed consent was obtained for hysteroscopic IUD removal. Will schedule case. Gail Engel DO [facility] 12-12-2024 Procedure note COMPLEX CONTRACEPTION - IUD REMOVAL Case Abdi presents today for IUD removal due to pain Referred by Patti Rutherford PA because IUD strings missing\ IUD type: Mirena (Progesterone) per pt, insertion note not available Prior US confirmed intrauterine location:Yes PELVIC US WHI (09/29/2024 8:44 AM) Correct position noted Pt counseled on hysteroscopic vs US guided removal and pt opts for office US guided removal Informed consent obtained. UNIVERSAL PROTOCOL / SAFETY CHECKLIST Procedure to be Performed: Paracervical block, IUD removal, possible cervical dilation, US guidance Sign In: A Moment of CARE was completed. Personnel directly involved with the procedure wore the appropriate PPE (Personal Protective Equipment). Patient/Surrogate Stated/Verified: PATIENT VERIFIED(optional for EMERGENT procedures): Patient name, Date of , Relevant allergies, and The intended procedure Time Out Communication: Intended patient and procedure match the source documents. Consent documented and matches the intended procedure. Relevant labs, photos, and/or imaging studies have been reviewed. Medications required for procedure verified. No fire risk assessment and interventions applicable. No implant(s) inserted. Sign Out: SIGN OUT (optional for EMERGENT procedures): No specimen collected. All instruments, equipment, possible retained foreign bodies accounted for. Post-procedure follow-up management communicated and Plan of Care Visit completed when applicable. Gail Engel DO PROCEDURE DETAILS Bimanual exam revealed anteverted uterus. A speculum was inserted. Cervix was prepped with betadine. A paracervical block was administered with 20 mL of 1% lidocaine without epinephrine A tenaculum was placed at 12 oclock Attempt to pass the alligator forcep through the internal os was unsuccessful to sharp anteverted angle between cervix and uterus The cervix was dilated to 18 hanks and the alligator forcep could not be passed beyond the internal os The patient requested that the procedure be stopped due to pain Hemostasis was noted. All instruments were removed. The patient tolerated the procedure fair. PLAN: IUD was not removed; procedure discontinued due to pain Recommend removal in OR; will need hospital due to BMI/comorbid conditions Pt is s/p tubal ligation I explained the risks of surgery including pain, bleeding, infection, injury to abdominal organs such as bladder or bowel, injury to vagina, uterus, or cervix, inability to complete the procedure, failure to obtain a correct diagnosis, DVT/PE, anesthetic complications, and . Her questions were answered. Written informed consent was obtained for hysteroscopic IUD removal. Will schedule case. Gail Engel DO [facility] 12-12-2024 Procedure note COMPLEX CONTRACEPTION - IUD REMOVAL Case Abdi presents today for IUD removal due to pain Referred by Patti Rutherford PA because IUD strings missing\ IUD type: Mirena (Progesterone) per pt, insertion note not available Prior US confirmed intrauterine location:Yes PELVIC US WHI (09/29/2024 8:44 AM) Correct position noted Pt counseled on hysteroscopic vs US guided removal and pt opts for office US guided removal Informed consent obtained. UNIVERSAL PROTOCOL / SAFETY CHECKLIST Procedure to be Performed: Paracervical block, IUD removal, possible cervical dilation, US guidance Sign In: A Moment of CARE was completed. Personnel directly involved with the procedure wore the appropriate PPE (Personal Protective Equipment). Patient/Surrogate Stated/Verified: PATIENT VERIFIED(optional for EMERGENT procedures): Patient name, Date of , Relevant allergies, and The intended procedure Time Out Communication: Intended patient and procedure match the source documents. Consent documented and matches the intended procedure. Relevant labs, photos, and/or imaging studies have been reviewed. Medications required for procedure verified. No fire risk assessment and interventions applicable. No implant(s) inserted. Sign Out: SIGN OUT (optional for EMERGENT procedures): No specimen collected. All instruments, equipment, possible retained foreign bodies accounted for. Post-procedure follow-up management communicated and Plan of Care Visit completed when applicable. Gail Engel DO PROCEDURE DETAILS Bimanual exam revealed anteverted uterus. A speculum was inserted. Cervix was prepped with betadine. A paracervical block was administered with 20 mL of 1% lidocaine without epinephrine A tenaculum was placed at 12 oclock Attempt to pass the alligator forcep through the internal os was unsuccessful to sharp anteverted angle between cervix and uterus The cervix was dilated to 18 hanks and the alligator forcep could not be passed beyond the internal os The patient requested that the procedure be stopped due to pain Hemostasis was noted. All instruments were removed. The patient tolerated the procedure fair. PLAN: IUD was not removed; procedure discontinued due to pain Recommend removal in OR; will need hospital due to BMI/comorbid conditions Pt is s/p tubal ligation I explained the risks of surgery including pain, bleeding, infection, injury to abdominal organs such as bladder or bowel, injury to vagina, uterus, or cervix, inability to complete the procedure, failure to obtain a correct diagnosis, DVT/PE, anesthetic complications, and . Her questions were answered. Written informed consent was obtained for hysteroscopic IUD removal. Will schedule case. Gail Engel DO documented in this encounter [facility] 12-12-2024 Instructions Gail Engel DO - 12/12/2024 1:57 PM EDT Images from the original note were not included. [facility] [place] If you have concerns or questions about your health, please call us: Thursday through Thursday, 8 am to 4:30 pm, please call the [facility] nurse coordinators. You may leave a voicemail we will return your call within 48 hours. Voicemails are not checked on evenings and weekends. The [facility] number is [phone] Evenings and weekends, please call any [facility] OBGYN office and ask to speak with the content production specialist on-call: [phone] (west) or [phone] (east). For emergencies, call 911. Thank you for choosing [facility] for your health care. Information on [employer] in Contraceptive Choice and Knowledge: https://picck.org/patient-resources/?f wp_resource_category=patient-counselin k-lhf-tcyxvcnfo Bedsider: www.bedsider.org documented in this encounter [facility] 11-23-2024 Note HNO ID: [id number] Author: PATTI RUTHERFORD PA-C Service: ? Author Type: Physician Business Mail Entry Clerk Type: Progress Notes Filed: 11/23/2024 11:45 Note Text: Case Abdi presents for removal of IUD due to pain. UNIVERSAL PROTOCOL / SAFETY CHECKLIST Procedure to be Performed: IUD removal Sign In: A Moment of CARE was completed. Appropriate PPE (Personal Protective Equipment) worn by all providers involved with the procedure. Special equipment utilized uterine forcep. Patient/Surrogate Stated/Verified: Patient name, Date of , Relevant allergies, and The intended procedure Time Out: Relevant labs, photos, and/or imaging studies have been reviewed. Intended patient and procedure match the source document(s) (e.g. consent, HANDP, associated studies [imaging, pathology]) match the intended patient and procedure. Consent obtained and matches the intended procedure. Yes. Correct side/site is not applicable. Medications required for this procedure are not applicable. Fire risk assessed and is not applicable. Implants: are not applicable. Sign Out: Specimens not collected. All instruments, equipment, possible retained foreign bodies are accounted for. Yes. The post-procedure plan of care has been communicated to the patient or surrogate. PROCEDURE: Speculum placed in vagina, IUD string NOT visualized Uterine forcep utilized and was unsuccessful . ASSESSMENT/PLAN: IUD NOT removed ASSESSMENT/PLAN: 1. Intrauterine contraceptive device threads lost, subsequent encounter - ICD9: V58.89, 996.32, ICD10: T83.32XD (primary diagnosis) - REMOVE INTRAUTERINE DEVICE - CONSULT COMPLEX CONTRACEPTION 2. Encounter for IUD removal - ICD9: V25.12, ICD10: Z30.432 - REMOVE INTRAUTERINE DEVICE - CONSULT COMPLEX CONTRACEPTION 3. Attempted IUD removal, unsuccessful - ICD9: V64.3, V45.51, ICD10: Z53.8, Z97.5 - REMOVE INTRAUTERINE DEVICE - CONSULT COMPLEX CONTRACEPTION Patti Rutherford PA-C [facility] 11-23-2024 History of Present illness Narrative Case Abdi presents for removal of IUD due to pain. UNIVERSAL PROTOCOL / SAFETY CHECKLIST Procedure to be Performed: IUD removal Sign In: A Moment of CARE was completed. Appropriate PPE (Personal Protective Equipment) worn by all providers involved with the procedure. Special equipment utilized uterine forcep. Patient/Surrogate Stated/Verified: Patient name, Date of , Relevant allergies, and The intended procedure Time Out: Relevant labs, photos, and/or imaging studies have been reviewed. Intended patient and procedure match the source document(s) (e.g. consent, H&P, associated studies [imaging, pathology]) match the intended patient and procedure. Consent obtained and matches the intended procedure. Yes. Correct side/site is not applicable. Medications required for this procedure are not applicable. Fire risk assessed and is not applicable. Implants: are not applicable. Sign Out: Specimens not collected. All instruments, equipment, possible retained foreign bodies are accounted for. Yes. The post-procedure plan of care has been communicated to the patient or surrogate. PROCEDURE: Speculum placed in vagina, IUD string NOT visualized Uterine forcep utilized and was unsuccessful . ASSESSMENT/PLAN: IUD NOT removed ASSESSMENT/PLAN: 1. Intrauterine contraceptive device threads lost, subsequent encounter - ICD9: V58.89, 996.32, ICD10: T83.32XD (primary diagnosis) - REMOVE INTRAUTERINE DEVICE - CONSULT COMPLEX CONTRACEPTION 2. Encounter for IUD removal - ICD9: V25.12, ICD10: Z30.432 - REMOVE INTRAUTERINE DEVICE - CONSULT COMPLEX CONTRACEPTION 3. Attempted IUD removal, unsuccessful - ICD9: V64.3, V45.51, ICD10: Z53.8, Z97.5 - REMOVE INTRAUTERINE DEVICE - CONSULT COMPLEX CONTRACEPTION Patti Rutherford PA-C documented in this encounter [facility] 10-26-2024 History of Present illness Narrative [facility] PT arrived via: [x] Ambulatory [] Wheelchair []With transport [] Other: [x]PT oriented to room and call light in reach. [x] Vital signs obtained and are stable. [x]Medication education provided and reviewed with patient. Therapeutic phlebotomy completed per orders, 500 cc off for a hemoglobin of 14.1. Patient tolerated, VSS. AVS reviewed with patient and patient left unit ambulatory. All equipment used in room cleaned. documented in this encounter Florian Schaffer [facility] 10-04-2024 Note HNO ID: [id number] Author: KALEB VARGAS MD Service: ? Author Type: Physician Type: Progress Notes Filed: 10/04/2024 09:43 Note Text: The patient presents for requested ultrasound. Full report available in the Imaging tab in Epic. Kaleb Vargas MD [facility] 09-30-2024 Hospital Discharge instructions Patient Education 09/30/2024 15:41:10 Upper Respiratory Infection, Adult Upper Respiratory Infection, Adult An upper respiratory infection (URI) is a common viral infection of the nose, throat, and upper air passages that lead to the lungs. The most common type of URI is the common cold. URIs usually get better on their own, without medical treatment. What are the causes? A URI is caused by a virus. You may catch a virus by: Breathing in droplets from an infected person's cough or sneeze. Touching something that has been exposed to the virus (is contaminated) and then touching your mouth, nose, or eyes. What increases the risk? You are more likely to get a URI if: You are very young or very old. You have close contact with others, such as at work, school, or a health care facility. You smoke. You have long-term (chronic) heart or lung disease. You have a weakened disease-fighting system (immune system). You have nasal allergies or asthma. You are experiencing a lot of stress. You have poor nutrition. What are the signs or symptoms? A URI usually involves some of the following symptoms: Runny or stuffy (congested) nose. Cough. Sneezing. Sore throat. Headache. Fatigue. Fever. Loss of appetite. Pain in your forehead, behind your eyes, and over your cheekbones (sinus pain). Muscle aches. Redness or irritation of the eyes. Pressure in the ears or face. How is this diagnosed? This condition may be diagnosed based on your medical history and symptoms, and a physical exam. Your health care provider may use a swab to take a mucus sample from your nose (nasal swab). This sample can be tested to determine what virus is causing the illness. How is this treated? URIs usually get better on their own within 7 10 days. Medicines cannot cure URIs, but your health care provider may recommend certain medicines to help relieve symptoms, such as: Cmfo-vte-phfewtx cold medicines. Cough suppressants. Coughing is a type of defense against infection that helps to clear the respiratory system, so take these medicines only as recommended by your health care provider. Fever-reducing medicines. Follow these instructions at home: Activity Rest as needed. If you have a fever, stay home from work or school until your fever is gone or until your health care provider says your URI cannot spread to other people (is no longer contagious). Your health care provider may have you wear a face mask to prevent your infection from spreading. Relieving symptoms Gargle with a mixture of salt and water 3 4 times a day or as needed. To make salt water, completely dissolve 1 tsp (3 6 g) of salt in 1 cup (237 mL) of warm water. Use a cool-mist humidifier to add moisture to the air. This can help you breathe more easily. Eating and drinking Drink enough fluid to keep your urine pale yellow. Eat soups and other clear broths. General instructions Take hpzu-gyb-emebtgw and prescription medicines only as told by your health care provider. These include cold medicines, fever reducers, and cough suppressants. Do not use any products that contain nicotine or tobacco. These products include cigarettes, chewing tobacco, and vaping devices, such as e-cigarettes. If you need help quitting, ask your health care provider. Stay away from secondhand smoke. Stay up to date on all immunizations, including the yearly (annual) flu vaccine. Keep all follow-up visits. This is important. How to prevent the spread of infection to others URIs can be contagious. To prevent the infection from spreading: Wash your hands with soap and water for at least 20 seconds. If soap and water are not available, use hand telegraph equipment maintainer. Avoid touching your mouth, face, eyes, or nose. Cough or sneeze into a tissue or your sleeve or elbow instead of into your hand or into the air. Contact a health care provider if: You are getting worse instead of better. You have a fever or chills. Your mucus is brown or red. You have yellow or brown discharge coming from your nose. You have pain in your face, especially when you bend forward. You have swollen neck glands. You have pain while swallowing. You have white areas in the back of your throat. Get help right away if: You have shortness of breath that gets worse. You have severe or persistent: ?Headache. ?Ear pain. ?Sinus pain. ?Chest pain. You have chronic lung disease along with any of the following: ?Making high-pitched whistling sounds when you breathe, most often when you breathe out (wheezing). ?Prolonged cough (more than 14 days). ?Coughing up blood. ?A change in your usual mucus. You have a stiff neck. You have changes in your: ?Vision. ?Hearing. ?Thinking. ?Mood. These symptoms may be an emergency. Get help right away. Call 911. Do not wait to see if the symptoms will go away. Do not drive yourself to the hospital. Summary An upper respiratory infection (URI) is a common infection of the nose, throat, and upper air passages that lead to the lungs. A URI is caused by a virus. URIs usually get better on their own within 7 10 days. Medicines cannot cure URIs, but your health care provider may recommend certain medicines to help relieve symptoms. This information is not intended to replace advice given to you by your health care provider. Make sure you discuss any questions you have with your health care provider. Document Revised: 12/04/2021 Document Reviewed: 12/04/2021 [employer] Patient Education 2023 [employer]. Follow Up Care 09/30/2024 14:47:23 With:Vargas MALHOTRA DO Address: [address] [place] [address] [phone] When: Unknown [facility] 09-30-2024 Note Patient Education Infectious Disease Upper Respiratory Infection, Adult An upper respiratory infection (URI) is a common viral infection of the nose, throat, and upper air passages that lead to the lungs. The most common type of URI is the common cold. URIs usually get better on their own, without medical treatment. What are the causes? A URI is caused by a virus. You may catch a virus by: ??? Breathing in droplets from an infected person's cough or sneeze. ??? Touching something that has been exposed to the virus (is contaminated) and then touching your mouth, nose, or eyes. What increases the risk? You are more likely to get a URI if: ??? You are very young or very old. ??? You have close contact with others, such as at work, school, or a health care facility. ??? You smoke. ??? You have long-term (chronic) heart or lung disease. ??? You have a weakened disease-fighting system (immune system). ??? You have nasal allergies or asthma. ??? You are experiencing a lot of stress. ??? You have poor nutrition. What are the signs or symptoms? A URI usually involves some of the following symptoms: ??? Runny or stuffy (congested) nose. ??? Cough. ??? Sneezing. ??? Sore throat. ??? Headache. ??? Fatigue. ??? Fever. ??? Loss of appetite. ??? Pain in your forehead, behind your eyes, and over your cheekbones (sinus pain). ??? Muscle aches. ??? Redness or irritation of the eyes. ??? Pressure in the ears or face. How is this diagnosed? This condition may be diagnosed based on your medical history and symptoms, and a physical exam. Your health care provider may use a swab to take a mucus sample from your nose (nasal swab). This sample can be tested to determine what virus is causing the illness. How is this treated? URIs usually get better on their own within 7?10 days. Medicines cannot cure URIs, but your health care provider may recommend certain medicines to help relieve symptoms, such as: ??? Pbuy-ojz-sxkezyz cold medicines. ??? Cough suppressants. Coughing is a type of defense against infection that helps to clear the respiratory system, so take these medicines only as recommended by your health care provider. ??? Fever-reducing medicines. Follow these instructions at home: Activity ??? Rest as needed. ??? If you have a fever, stay home from work or school until your fever is gone or until your health care provider says your URI cannot spread to other people (is no longer contagious). Your health care provider may have you wear a face mask to prevent your infection from spreading. Relieving symptoms ??? Gargle with a mixture of salt and water 3?4 times a day or as needed. To make salt water, completely dissolve ??1 tsp (3?6 g) of salt in 1 cup (237 mL) of warm water. ??? Use a cool-mist humidifier to add moisture to the air. This can help you breathe more easily. Eating and drinking ??? Drink enough fluid to keep your urine pale yellow. ??? Eat soups and other clear broths. General instructions ??? Take fnxh-aez-jmzjwwn and prescription medicines only as told by your health care provider. These include cold medicines, fever reducers, and cough suppressants. ??? Do not use any products that contain nicotine or tobacco. These products include cigarettes, chewing tobacco, and vaping devices, such as e-cigarettes. If you need help quitting, ask your health care provider. ??? Stay away from secondhand smoke. ??? Stay up to date on all immunizations, including the yearly (annual) flu vaccine. ??? Keep all follow-up visits. This is important. How to prevent the spread of infection to others URIs can be contagious. To prevent the infection from spreading: ??? Wash your hands with soap and water for at least 20 seconds. If soap and water are not available, use hand telegraph equipment maintainer. ??? Avoid touching your mouth, face, eyes, or nose. ??? Cough or sneeze into a tissue or your sleeve or elbow instead of into your hand or into the air. Contact a health care provider if: ??? You are getting worse instead of better. ??? You have a fever or chills. ??? Your mucus is brown or red. ??? You have yellow or brown discharge coming from your nose. ??? You have pain in your face, especially when you bend forward. ??? You have swollen neck glands. ??? You have pain while swallowing. ??? You have white areas in the back of your throat. Get help right away if: ??? You have shortness of breath that gets worse. ??? You have severe or persistent: ? Headache. ? Ear pain. ? Sinus pain. ? Chest pain. ??? You have chronic lung disease along with any of the following: ? Making high-pitched whistling sounds when you breathe, most often when you breathe out (wheezing). ? Prolonged cough (more than 14 days). ? Coughing up blood. ? A change in your usual mucus. ??? You have a stiff neck. ? (more content not included)... [facility] 09-27-2024 Telephone encounter Note Case is calling Cyndi Freedman DO today asking if she needs to have the ultrasound before having her IUD removed. Patient states she was told at last office visit she needed this before removal. Please advise. Patient has been identified by name and birthdate. Duration of symptoms: N/A Person calling: self Call patient at: on cell [phone] (home) [phone] (work) [phone] (cell) Was an appointment scheduled: No Closing statement: Results or non-symptom based questions: Thank you for calling [facility], your call will be returned within the next business day. Jyoti Lopez [facility] 09-27-2024 Miscellaneous Notes Case is calling Cyndi Freedman DO today asking if she needs to have the ultrasound before having her IUD removed. Patient states she was told at last office visit she needed this before removal. Please advise. Patient has been identified by name and birthdate. Duration of symptoms: N/A Person calling: self Call patient at: on cell [phone] (home) [phone] (work) [phone] (cell) Was an appointment scheduled: No Closing statement: Results or non-symptom based questions: Thank you for calling [facility], your call will be returned within the next business day. Jyoti Lopez documented in this encounter [facility] 08-18-2024 Telephone encounter Note Physician: Call from patient requesting refill. Please E-Scribe Last OV: 06/02/2024 with Mills Future OV: Not Scheduled. Requested Prescriptions Pending Prescriptions Disp Refills topiramate (TOPAMAX) 100 mg tablet 30 tablet 11 Sig: Take 1 tablet by mouth daily at bedtime. Pharmacy Name: [facility] Dianna Jasso [facility] 08-18-2024 Miscellaneous Notes Physician: Mills Call from patient requesting refill. Please E-Scribe Last OV: 06/02/2024 with Mills Future OV: Not Scheduled. Requested Prescriptions Pending Prescriptions Disp Refills topiramate (TOPAMAX) 100 mg tablet 30 tablet 11 Sig: Take 1 tablet by mouth daily at bedtime. Pharmacy Name: [facility] Dianna Jasso documented in this encounter [facility] 06-29-2024 Telephone encounter Note Botox referral sent to pharmacy Vadim KIM, RN RN [facility] 06-29-2024 Miscellaneous Notes Botox referral sent to pharmacy Vadim KIM, RN RN [facility] documented in this encounter [facility] 06-06-2024 Telephone encounter Note Patient last seen on 06/02/24. [facility] 06-06-2024 Miscellaneous Notes Patient last seen on 06/02/24. documented in this encounter [facility] 06-03-2024 Note HNO ID: [id number] Author: SHELL RO PA-C Service: ? Author Type: Physician Business Mail Entry Clerk Type: Progress Notes Filed: 06/03/2024 10:17 Note Text: This note was created using [employer]. Subjective Case Abdi is a 33 year old female seen today via zoom. She has a h/o headaches. She has chronic martinez's. She has had them the majority of her life. They significantly got worse when she started puberty. She was a premature and stopped breathing. She would turn blue a lot until she was about 6. They thought poor oxygen or circulation. Once she started having children, she started having different headaches. She did start getting botox which has helped significantly. She does have martinez's daily. When the martinez's are more intense, she can get light and sound sensitivity. If they are in the back of the head, she will tense up in the shoulders and neck. When they are intense and more noticeable, she will have some upper extremity and muscle issues with them. She will get eye twitching in the L eye as well. She has her eyes checked every year. No papilledema and LP OP in 2022 which was normal at 20.5 on 02/04/23 and CP of 16.5. After the LP she didn't feel any different. She didn't get any improvement or worsening of symptoms. Over the last 6 mos, she has had a worsening of symptoms. But after the LP, nothing improved. No change in the vision over the past year. At times, she does feel like she is seeing floaters or spots but this is usually only with intense pain. This is more on the L side. Making the martinez's worse is weather, hormones, lack of sleep. Botox has helped, ice will help, essential oils, heating pad on shoulders and neck, lying down, massager and tylenol and ibuprofen. + pulsatile tinnitus, pressure build up in the ears, Review of Systems Constitutional: Positive for fatigue. Negative for fever. HENT: Positive for tinnitus. Negative for trouble swallowing. Eyes: Positive for visual disturbance. Negative for pain. Respiratory: Negative for cough and wheezing. Cardiovascular: Negative for chest pain and leg swelling. Gastrointestinal: Negative for nausea and vomiting. Genitourinary: Negative for frequency and urgency. Musculoskeletal: Positive for back pain and neck pain. Allergic/Immunologic: Negative for environmental allergies and food allergies. Neurological: Positive for light-headedness and headaches. Psychiatric/Behavioral: Negative for dysphoric mood. The patient is not nervous/anxious. Objective LMP (LMP Unknown) Physical Exam Assessment and Plan Sagittal sinus stenosis with h/o migraines Eval for [facility] Ophthalmology visit in January with no papilledema IR LP in January of 2023 with OP of 20.5 Worsening martinez's since this time. Botox helping some MARTINEZ's changing Some vision changes with martinez's REviewed MRV with patient Discussed that with the stenosis of the sinus, this may be congenital and typically isn't treated unless something pathological is found such as elevated intracranial pressure or papilledema. Since papilledema was ruled out in January of 2024, we will order an IR LP. The last LP she had, she had a difficult time with. We will do this LP with OP only to mitigate her post LP complications. If her LP OP is > 25, we will have them drain pressure to 20 and then send CSF for labs. Otherwise, no CSF will be taken for labs. Also, we need to update her MRI brain prior to the LP. Pt to follow up with me after the MRI and LP. Pt was appreciative of the visit. I spent a total of 50 minutes on the date of the service which included preparing to see the patient, [id number] patient care, completing clinical documentation, obtaining and/or reviewing separately obtained history, counseling and educating the patient/family/caregiver, ordering medications, tests, or procedures, communicating with other HCPs (not separately reported), independently interpreting results (not separately reported), communicating results to the patient/family/caregiver, and care coordination (not separately reported). This virtual visit was conducted via [employer] which is a HIPAA compliant video platform. I received consent from the patient to perform the visit using this platform. The visit required patient-provider interaction for the medical decision making as documented herein. I have communicated my name and active licensure. The patient's identity and physical location were verified at the time of this visit. Either the patient or their legal publications sales representative has been informed of the risks and benefits of -- and alternatives to -- treatment through a remote evaluation and consents to proceed with the evaluation remotely. [facility] 06-03-2024 History of Present illness Narrative This note was created using [employer]. Subjective Case Abdi is a 33 year old female seen today via zoom. She has a h/o headaches. She has chronic martinez's. She has had them the majority of her life. They significantly got worse when she started puberty. She was a premature and stopped breathing. She would turn blue a lot until she was about 6. They thought poor oxygen or circulation. Once she started having children, she started having different headaches. She did start getting botox which has helped significantly. She does have martinez's daily. When the martinez's are more intense, she can get light and sound sensitivity. If they are in the back of the head, she will tense up in the shoulders and neck. When they are intense and more noticeable, she will have some upper extremity and muscle issues with them. She will get eye twitching in the L eye as well. She has her eyes checked every year. No papilledema and LP OP in 2022 which was normal at 20.5 on 02/04/23 and CP of 16.5. After the LP she didn't feel any different. She didn't get any improvement or worsening of symptoms. Over the last 6 mos, she has had a worsening of symptoms. But after the LP, nothing improved. No change in the vision over the past year. At times, she does feel like she is seeing floaters or spots but this is usually only with intense pain. This is more on the L side. Making the martinez's worse is weather, hormones, lack of sleep. Botox has helped, ice will help, essential oils, heating pad on shoulders and neck, lying down, massager and tylenol and ibuprofen. + pulsatile tinnitus, pressure build up in the ears, Review of Systems Constitutional: Positive for fatigue. Negative for fever. HENT: Positive for tinnitus. Negative for trouble swallowing. Eyes: Positive for visual disturbance. Negative for pain. Respiratory: Negative for cough and wheezing. Cardiovascular: Negative for chest pain and leg swelling. Gastrointestinal: Negative for nausea and vomiting. Genitourinary: Negative for frequency and urgency. Musculoskeletal: Positive for back pain and neck pain. Allergic/Immunologic: Negative for environmental allergies and food allergies. Neurological: Positive for light-headedness and headaches. Psychiatric/Behavioral: Negative for dysphoric mood. The patient is not nervous/anxious. Objective LMP (LMP Unknown) Physical Exam Assessment and Plan Sagittal sinus stenosis with h/o migraines Eval for IIH Ophthalmology visit in January with no papilledema IR LP in January of 2023 with OP of 20.5 Worsening martinez's since this time. Botox helping some MARTINEZ's changing Some vision changes with martinez's REviewed MRV with patient Discussed that with the stenosis of the sinus, this may be congenital and typically isn't treated unless something pathological is found such as elevated intracranial pressure or papilledema. Since papilledema was ruled out in January of 2024, we will order an IR LP. The last LP she had, she had a difficult time with. We will do this LP with OP only to mitigate her post LP complications. If her LP OP is > 25, we will have them drain pressure to 20 and then send CSF for labs. Otherwise, no CSF will be taken for labs. Also, we need to update her MRI brain prior to the LP. Pt to follow up with me after the MRI and LP. Pt was appreciative of the visit. I spent a total of 50 minutes on the date of the service which included preparing to see the patient, [id number] patient care, completing clinical documentation, obtaining and/or reviewing separately obtained history, counseling and educating the patient/family/caregiver, ordering medications, tests, or procedures, communicating with other HCPs (not separately reported), independently interpreting results (not separately reported), communicating results to the patient/family/caregiver, and care coordination (not separately reported). This virtual visit was conducted via [employer] which is a HIPAA compliant video platform. I received consent from the patient to perform the visit using this platform. The visit required patient-provider interaction for the medical decision making as documented herein. I have communicated my name and active licensure. The patient's identity and physical location were verified at the time of this visit. Either the patient or their legal publications sales representative has been informed of the risks and benefits of -- and alternatives to -- treatment through a remote evaluation and consents to proceed with the evaluation remotely. documented in this encounter [facility] 06-02-2024 History of Present illness Narrative Images from the original note were not included. Headache Center - VIRTUAL Follow-up Visit ASSESSMENT: 33 year old female with history significant for migraine without aura, bradycardia, anxiety, depression, hypothyroid, with chronic daily headache from an overlap of chronic migraine, chronic tension type headache, variable occipital neuralgia, cervical musculoskeletal factors, and chronic post-Covid headache exacerbation. She also has an area of pain in the head which could be consistent with nummular headache vs. distal branch occipital neuralgia. IIH was questioned in the past given R mild occasional pulsatile tinnitus, chronic daily headache, subtle MRI findings, ?TVOs, but there has been no other evidence so far (normal OP of 20, no clear papilledema and assistant quality manager does not suspect). 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 Clinical significance is uncertain and not typical of an IIH pattern, likely incidental anatomical variation. However a referral to cerebrovascular/endovascular was placed for their opinion specifically on this finding and whether further endovascular imaging was warranted (I'm unclear why the visit was deemed inappropriate, but she has a visit with the PA tomorrow to determine how to triage?). PLAN: (Please see typed patient instructions for detailed instructions) ---> Acute Treatment: -Zavzpret ns trial. ---> Preventive Treatment: -Botox every 3 months. -Topamax 100 mg qhs. Discussed future consideration of 100 mg bid titration if she would like. -Supplements discussed. ---> Headache education was done. Discussed lifestyle modification including increased oral hydration, decreased caffeine, exercise and stress management. Discussed treatment options including preventive and acute medications, natural supplements. Discussed medication overuse headache and to limit use of acute treatments to no more than 2 days/week or 10 days/month. Discussed medication side effects, adverse reactions and drug interactions. Written educational materials and patient instructions outlining all of the above were given. ---> Follow-up: for Botox. We will request a precertification for a Calcitonin Gene-Related Peptide Receptor Antagonist (GEPANT) Zavegepant for the rescue treatment of episodic migraine. This patient meets ICHD-3 criteria for treatment of migraine with a small molecule CGRP antagonist GEPANT. The FDA has approved GEPANTS for the treatment of migraine. Specifically, the patient has 8 migraine headaches per month, lasting 4 or more hours/day associated with photophobia, phonophobia, nausea for three or more months. Medication overuse headache has been ruled out.Patient will not use with another GEPANT. The patient has tried and failed the following : The following preventative medications have been tried without benefit: Anti-Convulsant Divalproex sodium (Depakote) Gabapentin (Neurontin) Topiramate (Topamax, Trokendi XL, Qudexy) Anti-Depressant and Antipsychotic Bupropion (Wellbutrin) Sertraline (Zoloft) Blood Pressure Lisinopril (Zestril) Botulinum Toxin Onabotulinum Toxin A (Botox) Supplements Magnesium The following abortive medications have been tried but require high frequency use which can lead to Medication Overuse Headache: Analgesic Ketorolac (Toradol) Tramadol (Ultram) Anti-Migraine Eletriptan (Relpax) Rizatriptan (Maxalt) Sumatriptan (Imitrex, Sumavel) GEPANTS Ubrogepant (Ubrelvy) did not help, thinks she took but not certain Rimegepant (Nurtec) did not help Over the Counter Medications Acetaminophen (Tylenol) Acetaminophen/Aspirin/Caffeine (Excedrin, Goody s) Aspirin Ibuprofen (Advil, Motrin) Naproxen sodium (Aleve) Last visit: 08/13/23 with me 02/04/24 with HALEY for Botox Interval Headache Hx: 30 overall headache days per month which includes variable intensity of headaches. Feels like migraines are much less with the Botox. Has a stabbing pressure area several inches in diameter in the posterior superior L parietal area. New Labs/Imaging: Impression IMPRESSION: Query moderate flow-limiting stenosis of the distal aspect of the superior sagittal sinus near the torcula. Data Entry Clerk: KRISTEN Transcribe Date/Time: Mar 02 2024 7:36P Dictated by : MILDRED CANALES MD This examination was interpreted and the report reviewed and electronically signed by: MILDRED CANALES MD on Mar 02 2024 7:39PM EST Results-Findings * * *Final Report* * * DATE OF EXAM: Mar 02 2024 5:14PM [facility] 0335 - MRV BRAIN WO IVCON / PROCEDURE REASON: multiple diagnoses * * * * Physician Interpretation * * * * EXAMINATION: MRV BRAIN WO IVCON CLINICAL HISTORY: Idiopathic intracranial hypertension TECHNIQUE: Routine noncontrast MRV brain protocol. COMPARISON: External facility CT of the head 04/22/2021 RESULT: The dural venous sinuses are patent with no evidence of thrombosis. 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 The deep venous system is also patent. HEADACHE SCORES: 08/13/2023 10/28/2023 02/01/2024 Headache Questions ID Migraine Screener: 2 (Positive) ER visits in the last year: 2 ER visits since last office visit: 0 Hospital stays in the last year: 0 Hospital stays since last office visit 0 Limited ADLs in the last month: 3 10 3 Days missed from work or school in the last month: 1 1 0 Days headache pain free in the last month: 0 0 7 Days per month with ALL of the following symptoms - decreased productivity, light sensitivity and nausea: 7 2 1 Initial improvement of headache after botox injection at last visit: Not applicable, I did not have a botox injection at my last visit Much improved PRN medication usage in the last month: 20 10 10 Patient impression of improvement since last visit: Not applicable, this is my first visit No change 08/13/2023 10/28/2023 02/01/2024 HIT-6 HIT-6 64 (Severe impact) 61 (Severe impact) 64 (Severe impact) 08/13/2023 10/28/2023 02/01/2024 NAYELI - 2/7 SCORES NAYELI-2 Score 2 4 5 NAYELI-7 Score 14 8 08/13/2023 10/28/2023 02/01/2024 Migraine Specific QOL - Higher scores indicate better HRQL Role Function-Restrictive Transformed Score (range: 0-100) 45.71 60 60 Role Function-Preventive Transformed Score (range: 0-100) 65 80 75 Emotional Function Transformed Score (range: 0-100) 40 80 46.67 08/13/2023 10/28/2023 02/01/2024 PHQ-9 Score 9 10 8 MEDS: Current Outpatient Medications Medication Sig zavegepant (ZAVZPRET) 10 mg/actuation nasal spray One nasal spray at migraine onset. May use once per 24 hours. semaglutide, weight loss, (WEGOVY) 0.25 mg/0.5 mL pen injector Inject 0.5 mL subcutaneously one time a week. Change to next dose after 4 weeks. semaglutide, weight loss, (WEGOVY) 0.5 mg/0.5 mL pen injector Inject 0.5 mL subcutaneously one time a week. Patient should start on January 18, 2024. esomeprazole (NEXIUM) 40 mg capsule TAKE 1 CAPSULE BY MOUTH TWO TIMES A DAY BEFORE MEALS rhdpps-mfvftkpv-dujupeb (ZENPEP) 25,000-79,000- 105,000 unit delayed release capsule Take 1 capsule by mouth three times a day with meals. iv contrast (will be provided with radiology test) CT ABD/PEL -Inject, intravenously, once for 1 dose.No IV access, insert saline lock prior to the beginning of sedation, infusion, injection of imaging exam. Discontinue saline lock post exam. If Pt. has a central line or IVAD, may access for administration according to line specific nursing protocol. Once exam is complete flush line and de-access according to line specific nursing protocol in the CT contrast administration guidelines link. (Patient not taking: Reported on 02/23/2024) enteric contrast (will be provided with radiology test) For CT ABD/PEL W IVCON Routine order Administer, As Directed One Time Only, via Oral, Rectal, both Oral and Rectal, Enteric Tube, Stoma or Indwelling Catheter, Enteric Contrast as designated per enteric contrast guidelines (Patient not taking: Reported on 02/23/2024) hyoscyamine SR (LEVBID) 0.375 mg 12 hr tablet TAKE 1 TABLET BY MOUTH TWICE A DAY (Patient not taking: Reported on 02/23/2024) topiramate (TOPAMAX) 100 mg tablet Take 1 tablet by mouth daily at bedtime. multivit with calcium,iron,min (WOMEN'S MULTIPLE VITAMINS ORAL) Take by mouth once daily. ascorbic acid/vitamin E/biotin (HAIR, SKIN, NAILS WITH BIOTIN ORAL) Take by mouth. sertraline (ZOLOFT) 25 mg tablet Take 25 mg by mouth. cholecalciferol, vitamin D3, (VITAMIN D3 ORAL) Take by mouth. buPROPion XL (WELLBUTRIN XL) 300 mg 24 hr tablet Take 300 mg by mouth once daily. MAGNESIUM ORAL Take by mouth. Current Facility-Administered Medications Medication Dose Route Frequency acetylcholine 10% solution - cchs compounding 20 mL IRRIGATION ONE TIME Prior Therapies Duration of Use Dose Reason for Discontinuation Other Therapies Nerve blocks occipital, supraorbital Analgesic Ketorolac (Toradol) Tramadol (Ultram) Anti-Convulsant Divalproex sodium (Depakote) Gabapentin (Neurontin) Topiramate (Topamax, Trokendi XL, Qudexy) Anti-Depressant and Antipsychotic Bupropion (Wellbutrin) Sertraline (Zoloft) Anti-Migraine Eletriptan (Relpax) Rizatriptan (Maxalt) Sumatriptan (Imitrex, Sumavel) Blood Pressure Lisinopril (Zestril) GEPANTS Rimegepant (Nurtec) Botulinum Toxin Onabotulinum Toxin A (Botox) Muscle Relaxer Cyclobenzaprine (Flexeril) Supplements Magnesium Other Medications Methylprednisolone (Medrol) Oren Mills DO [facility] [place] Department of Neurology [facility] [address] [place] [address] Level of service: Est level 4 (30-39 min). Time spent 30 min on the day of service, which included preparing to see the patient, [id number] patient care, completing clinical documentation, obtaining and/or reviewing separately obtained history, counseling and educating the patient/family/caregiver, ordering medications, tests, or procedures, communicating with other HCPs (not separately reported), and independently interpreting results (not separately reported). Medical Decision Making: Medical Decision Making Level: 1 - N/A I have communicated my name and active licensure. The patient's identity and physical location were verified at the time of this visit. Either the patient or their legal publications sales representative has been informed of the risks and benefits of -- and alternatives to -- treatment through a remote evaluation and consents to proceed with the evaluation remotely. cc: Vargas Malhotra [address] [place] [id number] documented in this encounter [facility] 06-02-2024 Note HNO ID: [id number] Author: OREN MILLS DO Service: ? Author Type: Physician Type: Progress Notes Filed: 06/02/2024 14:59 Note Text: Headache Center - VIRTUAL Follow-up Visit ASSESSMENT: 33 year old female with history significant for migraine without aura, bradycardia, anxiety, depression, hypothyroid, with chronic daily headache from an overlap of chronic migraine, chronic tension type headache, variable occipital neuralgia, cervical musculoskeletal factors, and chronic post-Covid headache exacerbation. She also has an area of pain in the head which could be consistent with nummular headache vs. distal branch occipital neuralgia. IIH was questioned in the past given R mild occasional pulsatile tinnitus, chronic daily headache, subtle MRI findings, ?TVOs, but there has been no other evidence so far (normal OP of 20, no clear papilledema and assistant quality manager does not suspect). 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 Clinical significance is uncertain and not typical of an IIH pattern, likely incidental anatomical variation. However a referral to cerebrovascular/endovascular was placed for their opinion specifically on this finding and whether further endovascular imaging was warranted (I'm unclear why the visit was deemed inappropriate, but she has a visit with the PA tomorrow to determine how to triage?). PLAN: (Please see typed patient instructions for detailed instructions) ---> Acute Treatment: -Zavzpret ns trial. ---> Preventive Treatment: -Botox every 3 months. -Topamax 100 mg qhs. Discussed future consideration of 100 mg bid titration if she would like. -Supplements discussed. ---> Headache education was done. Discussed lifestyle modification including increased oral hydration, decreased caffeine, exercise and stress management. Discussed treatment options including preventive and acute medications, natural supplements. Discussed medication overuse headache and to limit use of acute treatments to no more than 2 days/week or 10 days/month. Discussed medication side effects, adverse reactions and drug interactions. Written educational materials and patient instructions outlining all of the above were given. ---> Follow-up: for Botox. We will request a precertification for a Calcitonin Gene-Related Peptide Receptor Antagonist (GEPANT) Zavegepant for the rescue treatment of episodic migraine. This patient meets ICHD-3 criteria for treatment of migraine with a small molecule CGRP antagonist GEPANT. The FDA has approved GEPANTS for the treatment of migraine. Specifically, the patient has 8 migraine headaches per month, lasting 4 or more hours/day associated with photophobia, phonophobia, nausea for three or more months. Medication overuse headache has been ruled out.Patient will not use with another GEPANT. The patient has tried and failed the following : The following preventative medications have been tried without benefit: Anti-Convulsant Divalproex sodium (Depakote) Gabapentin (Neurontin) Topiramate (Topamax, Trokendi XL, Qudexy) Anti-Depressant and Antipsychotic Bupropion (Wellbutrin) Sertraline (Zoloft) Blood Pressure Lisinopril (Zestril) Botulinum Toxin Onabotulinum Toxin A (Botox) Supplements Magnesium The following abortive medications have been tried but require high frequency use which can lead to Medication Overuse Headache: Analgesic Ketorolac (Toradol) Tramadol (Ultram) Anti-Migraine Eletriptan (Relpax) Rizatriptan (Maxalt) Sumatriptan (Imitrex, Sumavel) GEPANTS Ubrogepant (Ubrelvy) did not help, thinks she took but not certain Rimegepant (Nurtec) did not help Over the Counter Medications Acetaminophen (Tylenol) Acetaminophen/Aspirin/Caffeine (Excedrin, Goody?s) Aspirin Ibuprofen (Advil, Motrin) Naproxen sodium (Aleve) ---- Last visit: 08/13/23 with me 02/04/24 with HALEY for Botox Interval Headache Hx: 30 overall headache days per month which includes variable intensity of headaches. Feels like migraines are much less with the Botox. Has a stabbing pressure area several inches in diameter in the posterior superior L parietal area. New Labs/Imaging: Impression IMPRESSION: Query moderate flow-limiting stenosis of the distal aspect of the superior sagittal sinus near the torcula. Data Entry Clerk: KRISTEN Transcribe Date/Time: Mar 02 2024 7:36P Dictated by : MILDRED CANALES MD This examination was interpreted and the report reviewed and electronically signed by: MILDRED CANALES MD on Mar 02 2024 7:39PM EST Results-Findings * * *Final Report* * * DATE OF EXAM: Mar 02 2024 5:14PM [facility] 0335 - MRV BRAIN WO IVCON / PROCEDURE REASON: multiple diagnoses * * * * Physician Interpretation * * * * EXAMINATION: MRV (more content not included)... [facility] 04-19-2024 Telephone encounter Note Patient not appropriate for our department specialty at this time, per chart review, patient is to see JANEY Mcgarry who will then refer patient back to us if necessary as we're more than happy to see her~ [facility] 04-19-2024 Miscellaneous Notes Patient not appropriate for our department specialty at this time, per chart review, patient is to see JANEY Mcgarry who will then refer patient back to us if necessary as we're more than happy to see her~ ENDOVASCULAR INTAKE Patient name: Case Abdi What diagnosis are you looking to be seen for within our center? (ex: aneurysm, angioma, arteriovenous malformation, brain bleed or brain hemorrhage, cavernous malformation, carotid stenosis, fistula, Moyamoya, Vein of Narendra, IIH or pseudotumor, etc.) Narrowing of mane channel Is there a specific provider who is requesting you see our center? (referring provider) Oren Mills; referral via [employer] on [phone] Has your referring provider recommended a specific provider in our department? Dr. Lala Is this a second opinion? Have you been recommended for surgery or procedure for this condition? -- If yes, have you scheduled this procedure at another facility? -- If yes, when is the procedure scheduled? -- Where have you had any imaging for this diagnosis in the past year? These include images such as ultrasounds, MRIs, CTs, or angiograms of the head, brain, neck, carotids, or spine. [facility] Name of Caller & Phone Number: Case What diagnosis do you need seen for: Narrowing of mane channel 2. Is there a specific provider referring you to our department [List provider's last name + first name]: Oren Mills 3. Have you been recommended for surgery/procedure for this diagnosis: Y/N N 4. In the past year, have you had any CT's/MR's/US's imaging of your Brain/Head/Neck: Y/N Y 4a. Do you have your imaging on a disc? Y/N N 4b. What is the name of the hospital/facility where you had imaging done? [facility] 4c. What is the City/State/Phone Number of OS? [place], [place] Thank you for the information, your chart will be forwarded to our Intake team. A coordinator will reach out to you within the next 24 hours to go through our triage questionnaire with you. If you don't receive a call from them within the next 2 business days, please call [phone] to follow up. documented in this encounter [facility] 04-19-2024 Telephone encounter Note ENDOVASCULAR INTAKE Patient name: Case Abdi What diagnosis are you looking to be seen for within our center? (ex: aneurysm, angioma, arteriovenous malformation, brain bleed or brain hemorrhage, cavernous malformation, carotid stenosis, fistula, Moyamoya, Vein of Narendra, IIH or pseudotumor, etc.) Narrowing of mane channel Is there a specific provider who is requesting you see our center? (referring provider) Oren Mills; referral via [employer] on [phone] Has your referring provider recommended a specific provider in our department? Dr. Lala Is this a second opinion? Have you been recommended for surgery or procedure for this condition? -- If yes, have you scheduled this procedure at another facility? -- If yes, when is the procedure scheduled? -- Where have you had any imaging for this diagnosis in the past year? These include images such as ultrasounds, MRIs, CTs, or angiograms of the head, brain, neck, carotids, or spine. [facility] 04-18-2024 Telephone encounter Note Name of Caller & Phone Number: Case What diagnosis do you need seen for: Narrowing of mane channel 2. Is there a specific provider referring you to our department [List provider's last name + first name]: Oren Mills 3. Have you been recommended for surgery/procedure for this diagnosis: Y/N N 4. In the past year, have you had any CT's/MR's/US's imaging of your Brain/Head/Neck: Y/N Y 4a. Do you have your imaging on a disc? Y/N N 4b. What is the name of the hospital/facility where you had imaging done? [facility] 4c. What is the City/State/Phone Number of [facility]? [place], [place] Thank you for the information, your chart will be forwarded to our Intake team. A coordinator will reach out to you within the next 24 hours to go through our triage questionnaire with you. If you don't receive a call from them within the next 2 business days, please call [phone] to follow up. [facility] 04-11-2024 History of Present illness Narrative Physical Therapy: Monthly Recheck/ Discharge Summary Patient: Case Abdi (33 y.o. female) Examination Date: 04/11/2024 Plan of Care/Certification Expiration Date: 05/11/24 No data recorded : 1990 # of Visits since SOC: 5 CSN: [id number] Start of Care Date: 03/14/2024 Insurance: Payor: [employer] / Plan: MED[employer] M[employer]UAL [address] / Product Type: *No Product type* / - (Commercial) Secondary Insurance (if applicable): [employer] M[employer]UAL Referring Physician: Cheikh Haddad PA-C Nathan Schuerger, PA-C, Dr. Garcia PCP: Vargas Malhotra DO Visits to Date/Visits Approved: No Show/Cancelled Appts: 0 / 1 Medical Diagnosis: No admission diagnoses are documented for this encounter. Med meniscus tear S/P R knee surgery 03/08/24 Treatment Diagnosis: R knee medial mensicus tear S/P surgery SUBJECTIVE EXAMINATION Pain Level: 3 Patient Comments: Subjective: Pt reports continued pain R knee- did a lot overthe weekend on her feet a lot, shopping and cleaning. Complaints of painful clicking/popping during sit to stand. Ave pain 2/10 during ADLs with increased activity. HEP Compliance: Good OBJECTIVE EXAMINATION Restrictions: Restrictions/Precautions: Surgical Protocols (WBAT with crutches per pt, progressing WBAT) No data recorded No data recorded Ambulation/Gait (if applicable): Ambulation Surface: Level tile, Carpet Device: No Device Assistance: Independent Quality of Gait: good pace, near equal step length, pain remained 2/10 pre during and post amb Distance: 6 min walk test= 1260 feet Stairs/Curb Stairs?: Yes Stairs # Steps : 10 Stairs Height: (7 inch) Rails: Left ascending Assistance: Modified independent Comment: Reciprocal pattern ascending and descending with good eccentric control pain remained 2/10 Left AROM Right AROM AROM RLE (degrees) R Knee Flexion (0-145): 0-125 deg R Knee Extension (0): 0 deg Left Strength Right Strength Strength LLE Strength LLE: WFL Strength RLE R Hip Flexion: 4/5, 4+/5 R Hip Extension: 4-/5, 4/5 R Hip ABduction: 4+/5 R Knee Flexion: 4/5 R Knee Extension: 4/5 R Ankle Dorsiflexion: 4+/5 TREATMENT Exercises: Treatment Reasoning Exercise 1: SLR x 5-10 H 3 Exercise 2: VMO SLR x 10 H3 Exercise 3: Reviewed sidelying hip abd Exercise 4: prone SLR H3'' x 10 BLE's altenating, pillow under abdomen Exercise 10: standing gastroc stretch; H30'' x 2- reviewed and vcs for form- closer to wall Exercise 11: Reveiwed supine hamstring stretch with sheet around ball of foot H 30 sec Exercise 14: Verbally reviewed standing 4 way hip with TBand working on posture slow and controlled form Limitations addressed: Mobility, Strength, Flexibility, Activity tolerance, Pain modulation Therapeutic Activities: (CPT 06114) Treatment Reasoning Ther Act Exercise 1: Monthly Recheck completed and pt education regarding progress toward goals. ROM, strength and amb as above pt education as below. Pt Education: PT Education: Goals, Plan of Care, Evaluative findings, Home Exercise Program Patient Education: Reviewed joint protection, HEP and importance of compliance and modification of HEP as needed pending activity level. Encouraged frqeuent stretching and CP PRN to address pain and tightness. Also encouraged breaks between activities when needing to complete prolonged stnading or walking. Discussed slow progress with walking and biking program for exercise and slowly increasing distance and speed as tolerated. ASSESSMENT Assessment: Assessment: 33 year old female who has been receiving PT treatment for meniscus tear both pre surgery and post surgery reports knee strength improving however still experiencing 2-3/10 knee pain/soreness with increased activity level. Pt has nearly achieved STGs and achieved 3/5 LTGs with remaining LTGs partially met. Pt verbalizes and demonstrates understanding of HEP. Recoommend D/C with HEP. Activity Tolerance: Patient tolerated treatment well; Patient limited by pain; Patient limited by endurance Therapy Prognosis: Good GOALS Patient Goals : Less tightness and strengthen leg, return to walking 2 miles per day Short Term Goals Completed by 1-2 weeks Current Status Goal Status Pt reporting any dec in R knee and R calf pain/tightness during walking Pt reports slight increase in pain over the last week however more active, more walking 2-3/[address] with increased activity, less calf tightness Partially met, In progress AROM R knee 0-95 deg or greater 0-125 deg R knee Met Pt amb 250 feet with 1 crutch or without AD demonstrating improved upright posture less leaning into crutch with 2/10 pain or less Pt amb without AD community distances 2-3/10 Partially met, In progress goal nearly met Pt able to perform SLR I without quad lag x 10 Rreps Denture Model Maker Goals Completed by 8 wks from IE on 03/14/24 Current Status Goal Status Pt perform ADLs community distance amb and housework with 1/10 pain or less 75% of the day 04/11/24: Pt performing ADLs including amb community distances 2-3/10 Partially met, In progress AROM R knee 0-120 deg or greater with no increased pain 0-125 deg AROM R knee without pain Met Increase R hip and knee to >= 4+/5 to have better support and allow for reciprocal stairclimbing 04/11: Strength steadily improving goal not quite yet met Partially met, In progress Decrease modified LEFS from 62% disabiltiy at eval to <= 20% to show better funciton and less R knee pain 04/11/24: Mod LEFS =44% In progress 6 minute walk test >= 900ft with near equal step and stride length and R knee pain post <= 2/10 6 min walk test: 1260 feet near equal step and stride length, pain remained 2/10 Met I with advanced HEP to further improve strength and mobility Pt verbalizes and demonstrates understanding of HEP Met TREATMENT PLAN Plan Frequency: D/C with HEP Therapy Time Individual Time In: 800 Individual Time Out: 855 Minutes: 55 NOTE documented in this encounter [facility] 03-23-2024 History of Present illness Narrative Physical Therapy: Daily Note Patient: Case Abdi (33 y.o. female) Examination Date: 03/23/2024 Plan of Care/Certification Expiration Date: 04/14/24 No data recorded : 1990 # of Visits since SOC: 3 CSN: [id number] Start of Care Date: 03/14/2024 Insurance: Payor: [employer] / Plan: [employer]UAL [address] / Product Type: *No Product type* / - (Commercial) Secondary Insurance (if applicable): [employer] M[employer]UAL Referring Physician: Cheikh Haddad PA-C Nathan Schuerger, PA-C, Dr. Garcia PCP: Vargas Malhotra DO Visits to Date/Visits Approved: No Show/Cancelled Appts: 0 Medical Diagnosis: No admission diagnoses are documented for this encounter. Treatment Diagnosis: R knee medial mensicus tear and R hamstring strain with pain and difficulty walking SUBJECTIVE EXAMINATION Pain Level: Pain Screening Patient Currently in Pain: Yes Pain Assessment: 0-10 Pain Level: 1 Patient Comments: Subjective: Pt reports having 1/10 right knee pain HEP Compliance: Good OBJECTIVE EXAMINATION Restrictions: Restrictions/Precautions: Surgical Protocols (WBAT with crutches per pt, progressing WBAT) No data recorded No data recorded TREATMENT Exercises: Treatment Reasoning Exercise 2: Hooklying abduction x 10 RTB and GTB x 10 Exercise 3: Standing calf stretch x 3 H30 Exercise 4: SLR x 10 AA - PT-unable to perform I SLR Exercise 7: prone hip ext x 10 B LE with no reports of back pain with 0# Exercise 10: standing gastroc stretch; H30'' x 2 Exercise 12: SLS standing x 10 reps B LE Exercise 13: standing resisted hip ABD x 10 reps Exercise 14: standing resisted hip EXT x 10 reps Exercise 15: Seated HS stretch 3 x30' Exercise 17: 6 step up forward x 10 B LE; Lateral step ups x 10 B LE 6 step Exercise 18: mini squat 10 x 3 sec h Pt Education: Additional Comments: KT tape ASSESSMENT Assessment: Assessment: Pt arrives to her appt today with reports of 1/10 right knee pain. Pt warmed up with stretches and then progressed with standing ther ex on both LE at times readjusting her R LE due to discomfort and fatigue. PT added lateral step ups with good technique and tolerance and able to forward step ups. Pt still unable to perform a supine SLR independently but able to do with AAROM with no reports of increased pain. Continue to progress per POC and try US next session if having increased pain. Body Structures, Functions, Activity Limitations Requiring Skilled Therapeutic Intervention: Decreased functional mobility , Decreased ROM, Decreased strength, Decreased endurance, Increased pain, Decreased tolerance to work activity Post-Treatment Pain Level: same - gave ice to go Activity Tolerance: Patient tolerated treatment well; Patient limited by pain; Patient limited by endurance Therapy Prognosis: Good GOALS Patient Goals : Less tightness and strengthen leg, return to walking 2 miles per day Short Term Goals Completed by 1-2 weeks Current Status Goal Status Pt reporting any dec in R knee and R calf pain/tightness during walking AROM R knee 0-95 deg or greater Pt amb 250 feet with 1 crutch or without AD demonstrating improved upright posture less leaning into crutch with 2/10 pain or less Pt able to perform SLR I without quad lag x 10 Rreps At time of IE 03/14 pt unable to perform SLR without assist Denture Model Maker Goals Completed by 8 wks from IE on 03/14/24 Current Status Goal Status Pt perform ADLs community distance amb and housework with 1/10 pain or less 75% of the day AROM R knee 0-120 deg or greater with no increased pain 2-80 deg day of IE 03/14/24 Increase R hip and knee to >= 4+/5 to have better support and allow for reciprocal stairclimbing Decrease modified LEFS from 62% disabiltiy at eval to <= 20% to show better funciton and less R knee pain 6 minute walk test >= 900ft with near equal step and stride length and R knee pain post <= 2/10 I with advanced HEP to further improve strength and mobility TREATMENT PLAN Plan Frequency: 1-2x per wk Plan weeks: 6-8 wks Current Treatment Recommendations: Strengthening, ROM, Functional mobility training, Endurance training, Gait training, Stair training, Pain management, Patient/Caregiver education & training, Home exercise program, Positioning, Modalities, Therapeutic activities, Manual Modalities: Heat/Cold, Ultrasound, E-stim - unattended Additional Comments: KT tape Therapy Time Individual Time In: 11:15am Individual Time Out: 12:05pm Minutes: 50 min documented in this encounter [facility] 03-22-2024 Telephone encounter Note Patient needs these things addressed: I never was able to increase to 75mg then to 100mg. I am now due for a refill and the only active prescription I have is for 100mg. Is it okay for me to jump from 50mg to 100mg? (I usually take my dose before bed) or should I now increase to 75mg since I have been tolerating the 50mg fine with no side effects or issues. If that s the case, can a new prescription for the 75mg (or 50mg & 25mg) be sent to my pharmacy? ([facility], [place]) Secondly, I had my MRV of the brain done and was curious if you could explain the results to me. I know we will go over these at my follow up with you but June is a long ways away so I was hoping for some feedback prior to then, if possible. [facility] 03-22-2024 Miscellaneous Notes Patient needs these things addressed: I never was able to increase to 75mg then to 100mg. I am now due for a refill and the only active prescription I have is for 100mg. Is it okay for me to jump from 50mg to 100mg? (I usually take my dose before bed) or should I now increase to 75mg since I have been tolerating the 50mg fine with no side effects or issues. If that s the case, can a new prescription for the 75mg (or 50mg & 25mg) be sent to my pharmacy? ([facility], [place]) Secondly, I had my MRV of the brain done and was curious if you could explain the results to me. I know we will go over these at my follow up with you but June is a long ways away so I was hoping for some feedback prior to then, if possible. Patient last seen on 02/04/24. documented in this encounter [facility] 03-15-2024 Telephone encounter Note Patient last seen on 02/04/24. [facility] 03-08-2024 History of Present illness Narrative Pt admitted to [facility], bed 2. Report received from OR nurse and anesthesia. Pt awake upon arrival. VSS. Pulse ox 100% on 6L O2 via simple mask. IV infusing without difficulty. Right LE dressing clean, dry, and intact. Toes pink in color, warm to touch, cap refill less than 3 sec. +2 pedal pulse. Pt denies pain to right knee. documented in this encounter Florian Schaffer [facility] 03-08-2024 Hospital Discharge instructions Alexia Stewart RN - 03/08/2024 7:22 AM EDT Images from the original note were not included. [facility] Orthopedics and Sports Medicine Dr. Woody Garcia Jr., MD Cheikh Haddad PA-C [facility] Orthopedics Post Operative Instructions for Knee Arthroscopy Incision and dressing Your incisions are covered with 4 x 4's, absorbent pads, cotton, and an Everardo wrap. The dressing may be removed 5 days after surgery. You have stitches in your wound that will be visible. Keep the incisions covered with dressing or large bandages until seen back in office. Do not get wet unless covered with waterproof bandage Showering Once the dressing has been removed in 2 days, you may shower. Running soap and water over the incisions are fine. No soaking or hot tubs or baths until 6 weeks after surgery. Let the water run over the incision, and pat dry with a towel. Do not scrub or rub the glue. Activity You will begin activity immediately after surgery. Physical therapy will commence (at home or as an outpatient) within a few days of surgery. An order has been placed for physical therapy. You can call [facility], and arrange therapy. Your knee will be sore, despite the small incisions. This is due to the fact that the knee needed to be filled with water in order to make room for the instruments to be utilized. You will receive crutches. It is okay to put weight on the leg as tolerated. That does not mean that you need to walk on it immediately, it means that you may progress weightbearing as tolerated. It is encouraged that you get up for short walks frequently throughout the day. Pump your ankles up and down at least 10 times every hour while you are awake, or if you are standing, stand on your toes 10 times every hour while you are awake. Rest and elevate your leg frequently throughout the day. Proper elevation aims to return fluid and edema to the heart. That is, the foot should be above the knee, the knee should be above the hip, and the hip should be above the heart. This can be accomplished by placing a pillow under your rear end, and propping the leg up on the back of a couch or on a wall. Ice your incision frequently - 20 minutes every hour for the first few days and then as needed to assist with swelling. He will start with the crutches. As you progress in your therapy, you can get rid of the crutches and walk unassisted as tolerated. Medications You received a prescription for oxycodone. This has been phoned into your pharmacy. You may also take Tylenol, 1000 mg every 8 hours for 1 week after surgery. You may wean off of the pain medications as tolerated. An cklo-awp-bnbtlxd stool softener such as Colace or Dulcolax as recommended his pain medications can lead to constipation. Take this as needed until your bowel function is normal. CALL THE OFFICE ([phone]) if: You run a fever of 100 degrees or higher that will not subside with Tylenol. You noticed drainage from the incision. You have worsening swelling or pain that is not relieved by rest or medication. [facility] Outpatient Discharge Instructions To continue your care at home, please follow the instructions below and any additional discharge instructions given to you by your physician. GENERAL ANESTHESIA: Do not drive or operate machinery for 24hrs after discharge, Do not drink alcohol, take tranquilizers, sleeping medication, or any other medication not directly instructed by your physician, Do not make any important decisions or sign any legal documents for 24hrs after surgery, Have someone with you for 24hrs after surgery to assist you as needed. ACTIVITY: Light activity for 24hrs, No heavy lifting or exercise until instructed by your physician, You may resume normal activities once instructed by your physician, Special Instruction: FLUIDS AND DIET: An upset stomach or feeling sick (nausea) can commonly occur after surgery and/or pain medication use. To help minimize nausea: Do not eat a heavy meal soon after your surgery, Start with water or other clear liquids, Advance to mild or bland items like Jell-O, dry toast, crackers, etc., Avoid caffeine, Do not drink alcohol for at least 24 hours after surgery, Your physician may prescribe anti-nausea medication if your nausea continues, If you are free from nausea for 24hrs, you can advance to your normal diet as tolerated. OPERATIVE SITE: A small amount of bleeding or drainage after surgery is normal. Your physician will provide you with specific instructions on how to care for your surgical site and/or dressing. Try not to touch your surgical site unless necessary, Always wash your hands BEFORE and AFTER changing your dressing if instructed by your physician, Proper handwashing includes wetting your hands with clean water, applying soap, lathering your hands by rubbing them together with soap for 20 seconds, rinsing them with clean water, and drying them with a clean towel. If soap and water is not available, alcohol-based telegraph equipment maintainer may be applied by rubbing the hands together and allowing them to dry for 20 seconds. Special Instructions: PAIN: Pain after surgery is normal and should be expected. When you go home, the anesthesia wears off, and you may experience increased discomfort. Your provider will give you specific instructions on what pain medication to take at home. Listed below is additional information on treating pain after surgery: Pain medication can give you an upset stomach. Unless your provider has instructed you not to eat or drink, the pain medication should be taken with a small amount of food. Eating will decrease the chance of an upset stomach. Pain medication can take about 20-30 minutes to start working, so do not wait until the pain worsens before taking a dose. Remember, always take [id number]-[id number] and prescription drugs only as directed by your provider. Unless otherwise instructed by your provider, applying ice on or around your surgical site can be a great way to help minimize pain and swelling after surgery. Apply ice to the affected area a minimum of 4 times daily for no longer than 15-20 minutes at a time. It is very important to protect your skin by NOT applying ice or ice pack directly to your skin. Always have a towel or pillow case between your skin and the ice. Frozen vegetable packs like peas or corn make great inexpensive alternatives for use as an icepack. FOLLOW UP CARE - Call your Physician if any of the following occur: Increased swelling, redness, warmth, hardness around operative area, Blood soaked dressings (small amounts of oozing may be normal), Numb, tingling, or cold fingers or toes (for surgeries on extremities) Fever over 101 F, Increased drainage, puss, and/or odor from surgical site, Pain not relieved by medications ordered Unable to urinate documented in this encounter [facility] 03-02-2024 History of Present illness Narrative Radiology Service Progress Note PATIENT NAME: Case Abdi DATE OF SERVICE: March 02, 2024 TIME: 5:07 PM PATIENT IDENTITY VERIFICATION COMPLETED USING TWO (2) IDENTIFIERS: Name and Date of confirmed by patient verbally and Name and Date of confirmed by identification band. FALL SCREENING: Has the patient had 2 falls in the last year or 1 fall with injury or currently using an Ambulatory Assistive Device (Walker, Cane, Wheelchair, Crutches, etc.)? No PATIENT GENDER DATA: Female. status: : No status: NO. PATIENT RELEVANT IMPLANT DATA REVIEWED: Yes PATIENT PRESENTS WITH AN IMPLANTABLE OR ATTACHED GIG TENDER: No RADIOLOGY DEPARTMENT: MR; Exam(s) Completed: Head: Sagittal Sinus MRV PERIPHERAL IV DATA: Not applicable SIGNED BY: BA Gonzalez) March 02, 2024 5:07 PM documented in this encounter [facility] 03-02-2024 Note HNO ID: [id number] Author: ARELY SIFUENTES RT(R) Service: Radiology Author Type: Technologist Type: Progress Notes Filed: 03/02/2024 17:07 Note Text: Radiology Service Progress Note PATIENT NAME: Case Abdi DATE OF SERVICE: March 02, 2024 TIME: 5:07 PM PATIENT IDENTITY VERIFICATION COMPLETED USING TWO (2) IDENTIFIERS: Name and Date of confirmed by patient verbally and Name and Date of confirmed by identification band. FALL SCREENING: Has the patient had 2 falls in the last year or 1 fall with injury or currently using an Ambulatory Assistive Device (Walker, Cane, Wheelchair, Crutches, etc.)? No PATIENT GENDER DATA: Female. status: : No status: NO. PATIENT RELEVANT IMPLANT DATA REVIEWED: Yes PATIENT PRESENTS WITH AN IMPLANTABLE OR ATTACHED GIG TENDER: No RADIOLOGY DEPARTMENT: MR; Exam(s) Completed: Head: Sagittal Sinus MRV PERIPHERAL IV DATA: Not applicable SIGNED BY: RT Lisa(R) March 02, 2024 5:07 PM [facility] 02-23-2024 Note HNO ID: [id number] Author: LIN BARTON PT Service: ? Author Type: Physical Therapist Type: Progress Notes Filed: 02/23/2024 11:13 Note Text: 02/23/2024 [facility] PHYSICAL THERAPY DISCONTINUANCE OF CARE Plan of Care Period: Start of Care Date: 07/27/23 Last Visit Date: 08/26/2023 Therapy Program: The following is a summary of the interventions provided for this episode of care; Therapeutic exercise, Self-jail management, and Patient/Family/Caregiver Education Assessment: The following is the goal status: Goals for Episode of Care: created on 07/27/23 through 08/26/23; UPDATED 08/26/23 Patient reported outcome of physical function will increase T-score by a minimum 5 points. [place] in home exercise program. PARTIALLY MET Patient will decrease pain rating by 2 points to meet minimal clinical important difference for numeric pain rating scale. NOT MET Perform sitting for full work day without pain.SLIGHTLY IMPROVED Patient will be able to correct postural deviations independently in order to to decrease current pain and prevent future recurrence. IMPROVING Pt will understand prophylactic measures to prevent future back and neck pain. Based on the most recent progress report, patient was progressing slower than expected toward functional goals based on documented subjective information on progress, documented objective information regarding symptom management, and appointment compliance. Reason for Discontinuation of Care: Patient has not returned to therapy or scheduled additional follow-up appointments. Lin Barton, PT [facility] 02-23-2024 History of Present illness Narrative Images from the original note were not included. [facility] [place] SECTION OF REGIONAL CARDIOLOGY OUTPATIENT VISIT DATE February 23, 2024 OUTPATIENT VISIT TYPE NEW to ca, established to [facility] PRIMARY CARE PHYSICIAN: Vargas Malhotra [address] [place] [address] REFERRING PHYSICIAN: No referring provider defined for this encounter. Patient is being seen at the request of Self for pre-op evaluation for planned knee surgery HISTORY OF PRESENT ILLNESS: Ms. Abdi is a 33 year old female, seen in clinic today for pre-op evaluation for planned knee surgery-repair of torn meniscus. Surgeon Dr. Garcia with [facility], scheduled Mar 08, 2024 CV history reviewed, summarized and updated: Patient of Dr. Rogers. Longstanding chest discomfort with features suggestive of atypical angina versus noncardiac chest pain. If pharmacologic stress SPECT in January 2023 showed no evidence of ischemia/infarction, normal LVEF at 74%. A previous exercise stress test showed poor functional capacity. Echocardiogram in January 2024 showed normal LV size and function, normal LV diastolic function, normal RV size and function and no significant valvular normalities. Evaluation with Dr. Mora in November 2022-potential invasive testing with microvascular testing was recommended which she deferred. Review of previous monitor- did not show any evidence of any significant arrhythmias. Since her discussion with Dr. Mora, She feels that her symptoms have improved significantly. Then she underwent stress SPECT and this showed no ischemia/infarction Before torn meniscus in September, but before that, she was walking 2 miles/10 K steps daily. No definite CV limitations with this. Occasional random sharp chest pains on the chest wall across her breast that happens in specific positions-feels like neck pain/arthritis. Even now, she able to do 20 mins on a stationary bike without any specific CV symptoms. Also started Wegovy Jan 2024 and lost ~10 lbs Otherwise she denies any recurrent chest pain, shortness of breath, leg swelling and symptoms consistent with orthopnea and/or PND. Denies any symptoms consistent with claudication. REVIEW OF SYSTEMS: 10 systems reviewed and are negative with the exception of pertinent positives described in HPI PHYSICAL EXAMINATION: BP 134/80 Pulse 69 Wt 125.8 kg (277 lb 5.4 oz) LMP (LMP Unknown) BMI 50.73 kg/m General: No acute distress, appears comfortable HEENT: no bruits, No JVD Pulmonary/chest: CTA b/L. No chest wall tenderness/venous engorgments CVS: Normal S1 and S2, Regular rhythm, normal rate. No murmurs/rubs or gallops. No JVD, no lower extremity edema. Central and peripheral pulses 2+ B/L, no carotid or abdominal bruits. Abdomen: Soft, non-tender, non-distended. Bowel sounds normal Extremities: No peripheral edema/varicosities Skin: No rashes/ulcers, warm and pink Neuro: AAOx4 Psych: Normal mood and affect CARDIOVASCULAR MEDICINE TESTING: I have personally reviewed EKG: NSR, 69 bpm Stress test Jan 2023: No ischemia/infarction, normal LVEF PAST MEDICAL HISTORY Diagnosis Date Anemia Arthritis Bradycardia COVID Generalized anxiety disorder Hypothyroidism Migraines Ovarian cyst PAST SURGICAL HISTORY Procedure Laterality Date BLOOD PATCH after last / epidural - used own blood DELIVERY ONLY x 3 COLONOSCOPY SCREENING EGD W/O BRSH SPEC VARICIES INJ OVARIAN CYSTECTOMY Right 2019 PAST SURGICAL HISTORY OF laparoscopy x 2 TONSILLECTOMY & ADENOIDECTOMY <AGE 12 SOCIAL HISTORY Social History Tobacco Use Smoking status: Former Current packs/day: 0.00 Types: Cigarettes Start date: 10/2017 Quit date: 10/2022 Years since quittin.3 Smokeless tobacco: Never Tobacco comments: Social smoker- one pack every 2 weeks Vaping Use Vaping status: Some Days Substances: Nicotine, Flavoring Devices: Disposable Substance Use Topics Alcohol use: Yes Comment: usually 6-10 drinks a month, social Drug use: Yes Types: Marijuana Comment: few times a month FAMILY HISTORY Problem Relation Age of Onset No Ocular Disease Mother Thyroid Mother Anesthesia Problems Mother PONV No Ocular Disease Father Parkinson s Disease Father Thyroid Sister No Ocular Disease Maternal Grandmother No Ocular Disease Maternal Grandfather No Ocular Disease Paternal Grandmother No Ocular Disease Paternal Grandfather Heart disease Paternal great-grandparent Heart Attack Paternal great-grandparent Blood Clots No Family History Clotting Disorder No Family History ALLERGIES: ALLERGIES No Known Allergies CURRENT MEDICATIONS: semaglutide, weight loss, (WEGOVY) 0.25 mg/0.5 mL pen injector^Inject 0.5 mL subcutaneously one time a week. Change to next dose after 4 weeks.^Disp: 2 mL^Rfl: 0 semaglutide, weight loss, (WEGOVY) 0.5 mg/0.5 mL pen injector^Inject 0.5 mL subcutaneously one time a week. Patient should start on January 18, 2024.^Disp: 2 mL^Rfl: 2 esomeprazole (NEXIUM) 40 mg capsule^TAKE 1 CAPSULE BY MOUTH TWO TIMES A DAY BEFORE MEALS^Disp: 180 capsule^Rfl: 1 topiramate (TOPAMAX) 100 mg tablet^Take 1 tablet by mouth daily at bedtime.^Disp: 30 tablet^Rfl: 11 multivit with calcium,iron,min (WOMEN'S MULTIPLE VITAMINS ORAL)^Take by mouth once daily.^Disp: ^Rfl: ascorbic acid/vitamin E/biotin (HAIR, SKIN, NAILS WITH BIOTIN ORAL)^Take by mouth.^Disp: ^Rfl: sertraline (ZOLOFT) 25 mg tablet^Take 25 mg by mouth.^Disp: ^Rfl: cholecalciferol, vitamin D3, (VITAMIN D3 ORAL)^Take by mouth.^Disp: ^Rfl: buPROPion XL (WELLBUTRIN XL) 300 mg 24 hr tablet^Take 300 mg by mouth once daily.^Disp: ^Rfl: MAGNESIUM ORAL^Take by mouth.^Disp: ^Rfl: saglfs-mnzocafp-nvsoqut (ZENPEP) 25,000-79,000- 105,000 unit delayed release capsule^Take 1 capsule by mouth three times a day with meals.^Disp: 90 capsule^Rfl: 0 iv contrast (will be provided with radiology test)^CT ABD/PEL -Inject, intravenously, once for 1 dose.No IV access, insert saline lock prior to the beginning of sedation, infusion, injection of imaging exam. Discontinue saline lock post exam. If Pt. has a central line or IVAD, may access for administration according to line specific nursing protocol. Once exam is complete flush line and de-access according to line specific nursing protocol in the CT contrast administration guidelines link.^Disp: 1 Each^Rfl: 0 (Patient not taking: Reported on 02/23/2024) enteric contrast (will be provided with radiology test)^For CT ABD/PEL W IVCON Routine order Administer, As Directed One Time Only, via Oral, Rectal, both Oral and Rectal, Enteric Tube, Stoma or Indwelling Catheter, Enteric Contrast as designated per enteric contrast guidelines^Disp: 1 Each^Rfl: 0 (Patient not taking: Reported on 02/23/2024) hyoscyamine SR (LEVBID) 0.375 mg 12 hr tablet^TAKE 1 TABLET BY MOUTH TWICE A DAY^Disp: 180 tablet^Rfl: 1 (Patient not taking: Reported on 02/23/2024) IMPRESSION/Recommendations: Ms. Abdi was seen in Cardiology clinic today for pre-operative cardiovascular exam for planned knee surgery for repair of torn meniscus. She has no known history of coronary artery disease or any significant arrhythmias. Previous nonspecific chest discomfort, but no recent symptoms suggestive of angina at a functional METS above 4. Recent pharmacologic stress SPECT from January 2023 was negative for any evidence of ischemia/infarction, and echocardiogram showed structurally normal heart with normal LVEF, normal diastolic function and no significant valvular dysfunction. She is undergoing a low risk surgery at this point. Overall risk for cardiac complications is low and no further cardiac workup is recommended at this point. Follow-up at next available with Dr. Steve Gray MD documented in this encounter [facility] 02-23-2024 Note HNO ID: [id number] Author: LLUVIA GRAY MD Service: ? Author Type: Physician Type: Progress Notes Filed: 02/23/2024 10:33 Note Text: [facility] [place] SECTION OF REGIONAL CARDIOLOGY OUTPATIENT VISIT DATE February 23, 2024 OUTPATIENT VISIT TYPE NEW to ca, established to [facility] PRIMARY CARE PHYSICIAN: Vargas Malhotra [address] [place] [address] REFERRING PHYSICIAN: No referring provider defined for this encounter. Patient is being seen at the request of Self for pre-op evaluation for planned knee surgery HISTORY OF PRESENT ILLNESS: Ms. Abdi is a 33 year old female, seen in clinic today for pre-op evaluation for planned knee surgery-repair of torn meniscus. Surgeon Dr. Garcia with [facility], scheduled Mar 08, 2024 CV history reviewed, summarized and updated: Patient of Dr. Rogers. Longstanding chest discomfort with features suggestive of atypical angina versus noncardiac chest pain. If pharmacologic stress SPECT in January 2023 showed no evidence of ischemia/infarction, normal LVEF at 74%. A previous exercise stress test showed poor functional capacity. Echocardiogram in January 2024 showed normal LV size and function, normal LV diastolic function, normal RV size and function and no significant valvular normalities. Evaluation with Dr. Mora in November 2022-potential invasive testing with microvascular testing was recommended which she deferred. Review of previous monitor- did not show any evidence of any significant arrhythmias. Since her discussion with Dr. Mora, She feels that her symptoms have improved significantly. Then she underwent stress SPECT and this showed no ischemia/infarction Before torn meniscus in September, but before that, she was walking 2 miles/10 K steps daily. No definite CV limitations with this. Occasional random sharp chest pains on the chest wall across her breast that happens in specific positions-feels like neck pain/arthritis. Even now, she able to do 20 mins on a stationary bike without any specific CV symptoms. Also started Wegovy Jan 2024 and lost ~10 lbs Otherwise she denies any recurrent chest pain, shortness of breath, leg swelling and symptoms consistent with orthopnea and/or PND. Denies any symptoms consistent with claudication. REVIEW OF SYSTEMS: 10 systems reviewed and are negative with the exception of pertinent positives described in HPI PHYSICAL EXAMINATION: BP 134/80 Pulse 69 Wt 125.8 kg (277 lb 5.4 oz) LMP (LMP Unknown) BMI 50.73 kg/m? General: No acute distress, appears comfortable HEENT: no bruits, No JVD Pulmonary/chest: CTA b/L. No chest wall tenderness/venous engorgments CVS: Normal S1 and S2, Regular rhythm, normal rate. No murmurs/rubs or gallops. No JVD, no lower extremity edema. Central and peripheral pulses 2+ B/L, no carotid or abdominal bruits. Abdomen: Soft, non-tender, non-distended. Bowel sounds normal Extremities: No peripheral edema/varicosities Skin: No rashes/ulcers, warm and pink Neuro: AAOx4 Psych: Normal mood and affect CARDIOVASCULAR MEDICINE TESTING: I have personally reviewed EKG: NSR, 69 bpm Stress test Jan 2023: No ischemia/infarction, normal LVEF PAST MEDICAL HISTORY Diagnosis Date Anemia Arthritis Bradycardia COVID Generalized anxiety disorder Hypothyroidism Migraines Ovarian cyst PAST SURGICAL HISTORY Procedure Laterality Date BLOOD PATCH after last / epidural - used own blood DELIVERY ONLY x 3 COLONOSCOPY SCREENING EGD W/O BRSH SPEC VARICIES INJ OVARIAN CYSTECTOMY Right 2019 PAST SURGICAL HISTORY OF laparoscopy x 2 TONSILLECTOMY AND ADENOIDECTOMY SOCIAL HISTORY Social History Tobacco Use Smoking status: Former Current packs/day: 0.00 Types: Cigarettes Start date: 10/2017 Quit date: 10/2022 Years since quittin.3 Smokeless tobacco: Never Tobacco comments: Social smoker- one pack every 2 weeks Vaping Use Vaping status: Some Days Substances: Nicotine, Flavoring Devices: Disposable Substance Use Topics Alcohol use: Yes Comment: usually 6-10 drinks a month, social Drug use: Yes Types: Marijuana Comment: few times a month FAMILY HISTORY Problem Relation Age of Onset No Ocular Disease Mother Thyroid Mother Anesthesia Problems Mother PONV No Ocular Disease Father Parkinson?s Disease Father Thyroid Sister No Ocular Disease Maternal Grandmother No Ocular Disease Maternal Grandfather No Ocular Disease Paternal Grandmother No Ocular Disease Paternal Grandfather Heart disease Paternal great-grandparent Heart Attack Paternal great-grandparent Blood Clots No Family History Clotting Disorder No Family History ALLERGIES: ALLERGIES No Known Allergies CURRENT MEDICATIONS: semaglutide, weight loss, (WEGOVY) 0.25 mg/0.5 mL pen injectorInject 0.5 mL subcutaneously one time a week. Change t (more content not included)... [facility] 02-18-2024 Note HNO ID: [id number] Author: MARCIAL QUEEN MD Service: ? Author Type: Physician Type: Progress Notes Filed: 03/01/2024 18:56 Note Text: Rheumatology History AND Physical Patient name: Case Abdi Requesting provider: No att. providers found SUBJECTIVE INITIAL RHEUMATOLOGY VISIT 01/07/2024 (with Marcial Queen): Ms. Case Abdi is a 33 year old female who has a past medical history of Anemia, obesity, ANTHONY, migraines, former smoker, IBS, Bradycardia, COVID, Generalized anxiety disorder, Hypothyroidism, and Migraines. who presents for rheumatologic evaluation. PSHx: She has a past surgical history that includes tonsillectomy AND adenoidectomy delivery only; past surgical history of; blood patch; and ovarian cystectomy (Right, 2019). Allergies: She has No Known Allergies. Current Meds: mobic, zenpep, hyoscyamine sr, esomeprazole, topiramate, nurtec odt, multivit with calcium,iron,min, ascorbic acid/vitamin e/biotin, phentermine hcl, sertraline, cholecalciferol (vitamin d3), bupropion xl, magnesium, iv contrast, and enteric contrast Family History: family history includes Anesthesia Problems in her mother; Heart Attack in her paternal great-grandparent; Heart disease in her paternal great-grandparent; No Ocular Disease in her father, maternal grandfather, maternal grandmother, mother, paternal grandfather, and paternal grandmother; Parkinson?s Disease in her father; Thyroid in her mother and sister. Social History: She reports that she quit smoking about 16 months ago. Her smoking use included cigarettes. She started smoking about 6 years ago. She has never used smokeless tobacco. She reports current alcohol use. She reports current drug use. Drug: Marijuana. Labs: Latest Ref Rng AND Units 11/13/2023 07/10/2023 11/12/2022 CBC WBC 3.70 - 11.00 k/uL 7.70 7.97 5.05 Hemoglobin 11.5 - 15.5 g/dL 15.9 14.4 14.6 Hematocrit 36.0 - 46.0 % 46.1 42.0 41.3 Platelet Count 150 - 400 k/uL 292 267 232 Abs Neut (ANC) 1.45 - 7.50 k/uL 5.43 5.76 3.61 Abs Lymph 1.00 - 4.00 k/uL 1.68 1.59 1.00 Latest Ref Rng AND Units 11/13/2023 07/10/2023 01/30/2023 11/12/2022 CMP Sodium 136 - 144 mmol/L 137 137 138 140 Potassium 3.7 - 5.1 mmol/L 4.2 4.0 4.5 4.1 Chloride 98 - 107 mmol/L 102 101 102 106 CO2 22 - 30 mmol/L 23 23 27 21 Glucose 74 - 99 mg/dL 99 81 90 95 BUN 7 - 21 mg/dL 16 16 20 15 Creatinine 0.58 - 0.96 mg/dL 0.93 0.99 0.93 1.00 Calcium 8.5 - 10.2 mg/dL 9.9 9.8 9.7 9.2 AST 13 - 35 U/L 18 19 17 ALT 7 - 38 U/L 26 20 15 Alkaline Phosphatase 34 - 123 U/L 120 102 92 Latest Ref Rng AND Units 07/10/2023 12/30/2022 ESR, WSR WSR 0 - 20 mm/hr 5 10 Latest Ref Rng AND Units 07/10/2023 12/30/2022 CRP CRP <0.9 mg/dL <0.3 <0.3 Latest Ref Rng AND Units 01/14/2024 C3, C4 C3 86 - 166 mg/dL 183 C4 13 - 46 mg/dL 36 Latest Ref Rng AND Units 11/26/2023 CK CK 42 - 196 U/L 106 Latest Ref Rng AND Units 01/14/2024 11/26/2023 Antibodies GUILLE Negative Negative DNA Antibody <=200 IU/mL 8 10 Crithidia lucillae Negative Negative Negative Anti-Sm <1.0 AI 1.4 1.4 Sm Antibody Negative Positive Positive Ribosomal OPHTHALMOLOGY ASSISTANT Ab <1.0 AI <0.2 <0.2 Ribosomal OPHTHALMOLOGY ASSISTANT Qualitative Negative Negative Negative Chromatin Ab <1.0 AI <0.2 <0.2 Chromatin Ab Qual Negative Negative Negative SSA Antibody Qual Negative Negative Negative Anti-SSA <1.0 AI <0.2 <0.2 Anti-SSB <1.0 AI <0.2 <0.2 OPHTHALMOLOGY ASSISTANT Antibody QUAL Negative Negative Negative Scleroderma Ab Qual Negative Negative Negative Scl-70 Abs, EIA <1.0 AI <0.2 <0.2 Centromere Ab <1.0 AI <0.2 <0.2 CENTROMERE AB QUAL Negative Negative Negative KIRA-1 ANTIBODY, IGG <1.0 AI <0.2 <0.2 KIRA 1 ANTIBODY QUAL Negative Negative Negative Beta 2 Glycoprotein, IgM <20 SMU <9 Beta 2 Glycoprotein 1, IgA <=20 DK <10 Cardiolipin Ab, IgG <15.0 GPL <15.0 GPL <9.0 <9.0 Cardiolipin Ab, IgM <12.5 MPL <12.5 MPL <9.0 <9.0 Cardiolipin Ab, IgA <12.0 APL <12.0 APL <9.0 <9.0 PT Sec 9.7 - 13.0 sec 10.6 PT INR 0.9 - 1.3 1.0 APTT 23.0 - 32.4 sec 29.4 Platelet Neut <1.9 Seconds 0.8 DRVVT Screen 32.0 - 45.7 seconds 38.3 DRVVT Confirm Ratio <1.32 1.12 DRVVT 1:1 Mix 32.0 - 45.7 seconds 36.0 Hex Phase Screen 34.0 - 51.8 seconds 50.3 Hex Phase Confirm 34.2 - 47.9 seconds 43.7 Hex Phase Delta <7.1 delta seconds 6.6 APTT Screen 24.0 - 35.1 seconds 28.3 Thrombin Time <18.6 seconds <16.8 Anti Xa Inhib Assay <0.10 <0.10 Latest Ref Rng AND Units 01/14/2024 11/26/2023 11/12/2023 Urinalysis Protein, Urine Negative Negative PROTEIN UA (POCT) Negative mg/dL Negative RBC, Urine 0-2 /HPF 0-2 /HPF Protein/Creat Ratio <0.15 mg/mg <0.11 <0.12 Labs: 11/08: sCr/LFT WNL Hgb 15.9; GUILLE screen+ positive anti-smooth muscle antibody 07/11: CRP WNL ESR WNL RHEUMATOLOGY EVALUATION 11/26/2023 Patient seen and examined - self-referral; per consult Dr Crain (GI) TODAY: -found to have recent +GUILLE +ASMA tests Per last GI evaluation 11/13/2023 Dr Crain: Was given diagnosis (more content not included)... [facility] 02-18-2024 History of Present illness Narrative Images from the original note were not included. Rheumatology History & Physical Patient name: Case Abdi Requesting provider: No att. providers found SUBJECTIVE INITIAL RHEUMATOLOGY VISIT 01/07/2024 (with Marcial Queen): Ms. Case Abdi is a 33 year old female who has a past medical history of Anemia, obesity, ANTHONY, migraines, former smoker, IBS, Bradycardia, COVID, Generalized anxiety disorder, Hypothyroidism, and Migraines. who presents for rheumatologic evaluation. PSHx: She has a past surgical history that includes tonsillectomy & adenoidectomy <age 12; Colonoscopy Screening; egd w/o brsh spec varicies inj; delivery only; past surgical history of; blood patch; and ovarian cystectomy (Right, 2019). Allergies: She has No Known Allergies. Current Meds: mobic, zenpep, hyoscyamine sr, esomeprazole, topiramate, nurtec odt, multivit with calcium,iron,min, ascorbic acid/vitamin e/biotin, phentermine hcl, sertraline, cholecalciferol (vitamin d3), bupropion xl, magnesium, iv contrast, and enteric contrast Family History: family history includes Anesthesia Problems in her mother; Heart Attack in her paternal great-grandparent; Heart disease in her paternal great-grandparent; No Ocular Disease in her father, maternal grandfather, maternal grandmother, mother, paternal grandfather, and paternal grandmother; Parkinson s Disease in her father; Thyroid in her mother and sister. Social History: She reports that she quit smoking about 16 months ago. Her smoking use included cigarettes. She started smoking about 6 years ago. She has never used smokeless tobacco. She reports current alcohol use. She reports current drug use. Drug: Marijuana. Labs: Latest Ref Rng & Units 11/13/2023 07/10/2023 11/12/2022 CBC WBC 3.70 - 11.00 k/uL 7.70 7.97 5.05 Hemoglobin 11.5 - 15.5 g/dL 15.9 14.4 14.6 Hematocrit 36.0 - 46.0 % 46.1 42.0 41.3 Platelet Count 150 - 400 k/uL 292 267 232 Abs Neut (ANC) 1.45 - 7.50 k/uL 5.43 5.76 3.61 Abs Lymph 1.00 - 4.00 k/uL 1.68 1.59 1.00 Latest Ref Rng & Units 11/13/2023 07/10/2023 01/30/2023 11/12/2022 CMP Sodium 136 - 144 mmol/L 137 137 138 140 Potassium 3.7 - 5.1 mmol/L 4.2 4.0 4.5 4.1 Chloride 98 - 107 mmol/L 102 101 102 106 CO2 22 - 30 mmol/L 23 23 27 21 Glucose 74 - 99 mg/dL 99 81 90 95 BUN 7 - 21 mg/dL 16 16 20 15 Creatinine 0.58 - 0.96 mg/dL 0.93 0.99 0.93 1.00 Calcium 8.5 - 10.2 mg/dL 9.9 9.8 9.7 9.2 AST 13 - 35 U/L 18 19 17 ALT 7 - 38 U/L 26 20 15 Alkaline Phosphatase 34 - 123 U/L 120 102 92 Latest Ref Rng & Units 07/10/2023 12/30/2022 ESR, WSR WSR 0 - 20 mm/hr 5 10 Latest Ref Rng & Units 07/10/2023 12/30/2022 CRP CRP <0.9 mg/dL <0.3 <0.3 Latest Ref Rng & Units 01/14/2024 C3, C4 C3 86 - 166 mg/dL 183 C4 13 - 46 mg/dL 36 Latest Ref Rng & Units 11/26/2023 CK CK 42 - 196 U/L 106 Latest Ref Rng & Units 01/14/2024 11/26/2023 Antibodies GUILLE Negative Negative DNA Antibody <=200 IU/mL 8 10 Crithidia lucillae Negative Negative Negative Anti-Sm <1.0 AI 1.4 1.4 Sm Antibody Negative Positive Positive Ribosomal OPHTHALMOLOGY ASSISTANT Ab <1.0 AI <0.2 <0.2 Ribosomal OPHTHALMOLOGY ASSISTANT Qualitative Negative Negative Negative Chromatin Ab <1.0 AI <0.2 <0.2 Chromatin Ab Qual Negative Negative Negative SSA Antibody Qual Negative Negative Negative Anti-SSA <1.0 AI <0.2 <0.2 Anti-SSB <1.0 AI <0.2 <0.2 OPHTHALMOLOGY ASSISTANT Antibody QUAL Negative Negative Negative Scleroderma Ab Qual Negative Negative Negative Scl-70 Abs, EIA <1.0 AI <0.2 <0.2 Centromere Ab <1.0 AI <0.2 <0.2 CENTROMERE AB QUAL Negative Negative Negative KIRA-1 ANTIBODY, IGG <1.0 AI <0.2 <0.2 KIRA 1 ANTIBODY QUAL Negative Negative Negative Beta 2 Glycoprotein, IgM <20 SMU <9 Beta 2 Glycoprotein 1, IgA <=20 DK <10 Cardiolipin Ab, IgG <15.0 GPL <15.0 GPL <9.0 <9.0 Cardiolipin Ab, IgM <12.5 MPL <12.5 MPL <9.0 <9.0 Cardiolipin Ab, IgA <12.0 APL <12.0 APL <9.0 <9.0 PT Sec 9.7 - 13.0 sec 10.6 PT INR 0.9 - 1.3 1.0 APTT 23.0 - 32.4 sec 29.4 Platelet Neut <1.9 Seconds 0.8 DRVVT Screen 32.0 - 45.7 seconds 38.3 DRVVT Confirm Ratio <1.32 1.12 DRVVT 1:1 Mix 32.0 - 45.7 seconds 36.0 Hex Phase Screen 34.0 - 51.8 seconds 50.3 Hex Phase Confirm 34.2 - 47.9 seconds 43.7 Hex Phase Delta <7.1 delta seconds 6.6 APTT Screen 24.0 - 35.1 seconds 28.3 Thrombin Time <18.6 seconds <16.8 Anti Xa Inhib Assay <0.10 <0.10 Latest Ref Rng & Units 01/14/2024 11/26/2023 11/12/2023 Urinalysis Protein, Urine Negative Negative PROTEIN UA (POCT) Negative mg/dL Negative RBC, Urine 0-2 /HPF 0-2 /HPF Protein/Creat Ratio <0.15 mg/mg <0.11 <0.12 Labs: 11/08: sCr/LFT WNL Hgb 15.9; GUILLE screen+ positive anti-smooth muscle antibody 07/11: CRP WNL ESR WNL RHEUMATOLOGY EVALUATION 11/26/2023 Patient seen and examined - self-referral; per consult Dr Crain (GI) TODAY: -found to have recent +GUILLE +ASMA tests Per last GI evaluation 11/13/2023 Dr Crain: Was given diagnosis of IBS in the past per GI note HPI: Case Abdi, 33 year old female, followup for abdominal bloating and reflux. Over the past few years she has increased bloating, indigestion, and GERD. Symptoms have been worsening despite treatment. Previously following with GI in [place] treated for GERD and IBS-D. Over the years has failed several medications including pantoprazole, Carafate, dicyclomine, probiotics, Ibgard, metronidazole. Nexium helps GERD and Levbid helps pain but still with chronic symptoms. She is concerned about an autoimmune condition given generalized body aches, fatigue, and joint discomfort. Labs and imaging has been negative thus far including celiac serology, RUQ US and CCK HIDA. Last EGD and colonoscopy were 3 yrs ago. Negative family history Today: initial rheumatology evaluation; per patient she undergoes Flare ups of unwellness -stomach pain Will be going for CT A/P with contrast next week Was on phentramine to piper helper weight loss but this was stopped after seeing GI(adipex) - patient unable to tell if this has made a difference; recently started digestive enzymes with GI Noticing worsening polyarthralgia, polymyalgia - long standing h/o neck and back pain which she feels is worse after child Using meloxicam, notes that it helps her feel better; had a small injury at home w/ her R knee; saw outside provider at [facility]; started mobic; using voltaren gel Notes she lost 60lb but unfortunately gained it back over the past year Gets myalgias of upper arms that go into her elbows No h/o joint swelling No h/o raynaud's Notes sometimes gets ?eczema like rash over neck no h/o photosensitive rashes Sometimes gets inspiratory chest pain no h/o pericarditis/pleurisy No h/o oral ulcers; sometimes gets nasal sore maybe more when I have a runny nose One first trimester miscarriage No sicca symptoms Has dry eyes only a/w use of contacts Rheumatologic ROS +fatigue (+) in bold; all rest are negative/denies history of: Chest pain, shortness of breath, history of pleural effusion or pericarditis, oral/nasal ulcers, photosensitivity, rash, history of DVT/PE/&or miscarriages - one first trimester, renal disease, seizures, dry eyes, dry mouth, cervical lymphadenopathy or parotid gland swelling, raynaud's phenomenon, alopecia, psoriasis, history of iritis/uveitis or scleritis, nail pitting, dactylitis, history of sacroiliitis or inflammatory bowel disease, arm weakness in raising arms above head, leg weakness in standing up from a seated position, skin tightening, dysphagia, changes in vision, scalp tenderness, jaw claudication, stiffness in shoulders/hip girdle, auricular or nasal chondritis RHEUMATOLOGY VIRTUAL FOLLOW UP VISIT 01/08: Patient seen and examined at [facility] ([facility]) rheumatology clinic for a follow up visit. Diagnostics since last visit: 12/08: DsDNA (-); negative crithidia; normal urine protein/cr ratio; Dye 1.4 (-)rest of SALOMON (-)APS: B2GP1, LAC, aCL; CK WNL XR KNEES: PENDING Today, patient seen virtually. Reviewed recent diagnostics in great detail including low positive dye antibody the muscular pain bothers me the most per patient most of her myalgias are in her upper extremities, chest. Sometimes gets leg muscle discomfort a lot of the times I can feel it in my upper arms I can feel it in my chest too Saw cardiology last year for chest pain last year, underwent workup including stress test and carotid duplex as below: LVEF: 74 % LEFT VENTRICLE The left ventricle is normal in size. Left ventricular systolic function is normal. Stress Test Findings: There is no scintigraphic evidence for inducible ischemia. There is no evidence of scarring. Sometimes gets chest discomfort with taking in a deep breath if I sometimes take in a significantly deep breath like a tender a little bit of a discomfort US CAROTID 01/07: RIGHT SIDE Internal carotid artery: 0-19% stenosis. Vertebral artery: Patent and antegrade flow noted. Innominate artery: Patent. Subclavian artery: Patent. LEFT SIDE Internal carotid artery: 0-19% stenosis. Vertebral artery: Patent and antegrade flow noted. Subclavian artery: Patent. Since last visit notes she underwent further workup for R knee pain and found to have a torn meniscus. ROS +fatigue +polymyalgia +polyarthralgia +shortness of breath, inspiratory chest pain at times +mouth sores (sometimes at gums, hard palate) +subjective LN enlargement at times (-)fevers, rash, raynaud's, sicca, alopecia, hematuria Saw GI recently underwent CT Abdomen/Pelvis: 1. Bilateral nonobstructive nephrolithiasis. 2. Otherwise, no acute process noted in the abdomen or pelvis. 3. Hepatic steatosis. RHEUMATOLOGY FOLLOW UP VISIT 02/18/2024: Patient seen and examined at [facility] ([facility]) rheumatology clinic for a follow up visit. Diagnostics since last visit: 01/08: (-)GUILLE (-)DsDNA/Crithidia; C3 of 183 C4 normal; UA (-)protein, RBC, Blood; normal urine protein/cr ratio; Dye 1.4 rest of SALOMON (-) TTE 02/08: no pericardial effusion; Exam indication: Pleurisy - The left ventricle is normal in size. Left ventricular systolic function is normal. EF = 61 5% (2D biplane) Normal left ventricular diastolic function. - The right ventricle is normal in size. Right ventricular systolic function is normal. Estimated right ventricular systolic pressure is not reported due to an insufficient tricuspid regurgitation signal. - There are no significant valvular abnormalities. Today, patient seen/examined. Follow up for abnormal labs, +anti-dye ab. Recent labs with (-)GUILLE/DsDNA no hypocomplementemia and normal urine sediment. Trying to be more mindful of her symptoms: One thing I noticed is that certain symptoms get worse around the time I have a cycle but I don't have a cycle because I have an IUD Notes worsening aches, pains, fatigue gets aggressive around end of the month going into beginning of the following month Right now I am at the tail end of it worsening fatigue, muscle aches, joint pains of inner elbows - no joint swelling. No finger or knuckle swelling. I always have feel like I have to crack my knuckles but I don't necessarily know if that's stiffness or just a bad habit Currently on topamax for migraines. Currently on wegovy which she just started last month. H/o R knee pain, h/o torn meniscus - getting R meniscus repair 03/08/[address] Garcia. H/o intermittent chest pains - recent TTE without pericardial effusion, normal. Feels discomfort over breast area at times. Denies shortness of breath No recurrent oral/nasal ulcers No recent rashes No h/o raynaud's No fevers Sometimes has dry eyes it goes more hand and hand when I am more fatigued Lost 7 lb since last visit. Answers submitted by the patient for this visit: Review of Systems Rheumatology (Submitted on 02/15/2024) Fever : No Recent unintentional weight change: No Eye pain: No Eye redness: No Vision Disturbance: No Eye Dryness: No Nosebleeds: No Sores in your mouth: Yes Trouble Swallowing: No Dry Mouth: Yes Chest pain: Yes Leg Swelling: Yes A cough: No Shortness of breath: No Pain with breathing: Yes Heartburn: Yes Abdominal pain: Yes Diarrhea: No Black tarry stools: No Blood in urine: No Pain or burning with urination: No Joint pain or stiffness: Yes Muscle weakness: Yes Muscle aches: Yes Joint swelling: No Morning Stiffness in Joints: No A rash: No Skin Color Changes: No Hair Loss: No Nail Changes: No Headaches: Yes Numbness: No Memory Loss: No Swollen Glands: No OBJECTIVE General: No acute distress. Eye: Pupils are equal, round and reactive to light, Extraocular movements are intact, Normal conjunctiva. HENT: Oral mucosa is moist, no oral ulcerations, no areas of alopecia appreciated Neck: Supple, Non-tender. No lymphadenopathy Respiratory: Lungs are clear to auscultation, Respirations are non-labored, Breath sounds are equal. Cardiovascular: Normal rate, Regular rhythm. Gastrointestinal: soft, non-tender, non-distended. Musculoskeletal: no synovitis, muscle strength normal 5/5 BL UE/LE Integumentary: Warm, Dry. No rash; mild erythema overlying MCP joints R>L hand Neurologic: Alert, Oriented. Psychiatric: Cooperative. IMPRESSION & RECOMMENDATIONS Ms. Case Abdi is a 33 year old female who has a past medical history of Anemia, obesity, ANTHONY, migraines, former smoker, IBS, Bradycardia, COVID, Generalized anxiety disorder, Hypothyroidism, and Migraines. who presents for rheumatologic evaluation. 11/08: sCr/LFT WNL Hgb 15.9; GUILLE screen+ positive anti-smooth muscle antibody 07/11: CRP WNL ESR WNL 12/08: DsDNA (-); negative crithidia; normal urine protein/cr ratio; Dye 1.4 (-)rest of SALOMON (-)APS: B2GP1, LAC, aCL; CK WNL CT Abdomen/Pelvis: 1. Bilateral nonobstructive nephrolithiasis. 2. Otherwise, no acute process noted in the abdomen or pelvis. 3. Hepatic steatosis. Diagnostics since last visit: 01/08: (-)GUILLE (-)DsDNA/Crithidia; C3 of 183 C4 normal; UA (-)protein, RBC, Blood; normal urine protein/cr ratio; Dye 1.4 rest of SALOMON (-) TTE 02/08: no pericardial effusion; Exam indication: Pleurisy - The left ventricle is normal in size. Left ventricular systolic function is normal. EF = 61 5% (2D biplane) Normal left ventricular diastolic function. - The right ventricle is normal in size. Right ventricular systolic function is normal. Estimated right ventricular systolic pressure is not reported due to an insufficient tricuspid regurgitation signal. - There are no significant valvular abnormalities. --------- Pleasant 33 y/o F with medical history as above - referred to rheumatology in setting of +GUILLE (recent repeat GUILLE negative), polymyalgia/polyarthralgia. She notes a family history of fibromyalgia. Patient follows with GI for abdominal pain, bloating, GERD (previously diagnosed with IBS with previous GI, last EGD/colonoscopy 3 years ago unremarkable). Given polymyalgia (upper extremities), body aches and fatigue, joint discomfort (shoulders, elbows, knees) a workup from GI was initiated which yielded +GUILLE (direct but recent GUILLE by IFA negative) and +ASMA antibody (recent LFTs normal). Explained to patient that ASMA is typically a/w autoimmune hepatitis (unlikely in setting of normal LFT; will defer to GI). ASMA is typically almost always associated with +GUILLE. ROS as above from rheumatologic perspective widely negative (no h/o recurrent photosensitive rashes, raynaud's, fevers, joint swelling/redness/warmth/inflammatory arthritis). ROS +one first trimester miscarriage (recent APS testing negative) Labs and workup initiated by rheumatology widely negative (-)DsDNA, (-)DsDNA by Crithidia, negative antiphospholipid ab's x 3, normal CK however labs with low positive anti-dye antibody of 1.4 of unclear clinical significance (which is seen in the absence of GUILLE by IFA). ROS+fatigue +polymyalgia/polyarthralgia, R knee pain (will be undergoing R knee meniscal repair surgically 03/08/2024). Currently no clinical symptoms to support a diagnosis of SLE. Recent labs normal complements, urine studies and negative DsDNA, Crithidia. Describes bouts of chest discomfort at times, sometimes a/w inspiration ?pleurisy - underwent cardiac workup 2022 with negative stress test and normal carotid duplex studies. Recent TTE as above without pericardial effusion. Unclear whether her low titer dye antibody has any clinical significance at this time and I am reluctant to give her a diagnosis of SLE given she lacks majority of clinical domains needed for diagnosis. No h/o fevers, rash, raynaud's, sicca, alopecia. Counseled regarding signs and symptoms to monitor for that can be seen in SLE given her low positive Dye antibody. Low threshold for HCQ if she starts to display more clinical features of SLE. Regarding chronic fatigue, polymyalgia, her strength exam last visit was normal. CK normal. She is in the process of establishing with functional/integrative medicine. She defers muscle relaxers, cymbalta. H/o R knee meniscus tear - partaking in PT, will be undergoing R knee meniscal repair in the near future She is on GLP1 agonist for weight loss. We discussed anti-inflammatory diet: turmeric, mediterranean diet, omega 3 fatty acids/fish oil. ANTHONY: recommend CPAP RTC 6 months: we will repeat lupus serologies on/after 05/2023: provide patient list of symptoms to monitor for and let me know if any of these were to occur - low threshold for HCQ if worsening polyarthralgia, rash, sicca, raynaud's. I spent a total of 30 minutes on the date of the service which included preparing to see the patient, [id number] patient care, completing clinical documentation, obtaining and/or reviewing separately obtained history, performing a medically appropriate examination, counseling and educating the patient/family/caregiver, ordering medications, tests, or procedures, communicating results to the patient/family/caregiver and care coordination (not separately reported). Marcial Queen MD Rheumatology Staff documented in this encounter [facility] 02-16-2024 Note HNO ID: [id number] Author: CYNDI FREEDMAN, DO Service: ? Author Type: Physician Type: Progress Notes Filed: 02/16/2024 21:38 Note Text: CC: Annual Exam Case Abdi 33 year old (c/s x 3) here for annual exam. No LMP secondary to IUD (inserted at [facility] 06/18/2020) PAST MEDICAL HISTORY Diagnosis Date Anemia Arthritis Bradycardia COVID Generalized anxiety disorder Hypothyroidism Migraines Ovarian cyst PAST SURGICAL HISTORY Procedure Laterality Date BLOOD PATCH after last / epidural - used own blood DELIVERY ONLY x 3 COLONOSCOPY SCREENING EGD W/O BRSH SPEC VARICIES INJ OVARIAN CYSTECTOMY Right 2019 PAST SURGICAL HISTORY OF laparoscopy x 2 TONSILLECTOMY AND ADENOIDECTOMY Review of Systems: WHIPPER BEATER: SEE HPI The remainder of the review of systems is negative. I have confirmed and edited as necessary, the PFSH and ROS obtained by others. Director Of Operations Support offered: Patient declines. The sensitive examination was discussed with the Patient or Patient's Authorized Staff Attorney. As applicable, any other physician, advance practice provider, medical student, or other health professional student that will be observing or involved in the sensitive examination for educational or training purposes was discussed with the Patient or Authorized Staff Attorney. The Patient or Authorized Staff Attorney has agreed to proceed with the sensitive examination. (Sensitive examination includes inspection and/or palpation of the breasts, pelvis, prostate and anorectal regions) Exam: BP 112/75 Pulse 66 Ht 157.5 cm (5' 2 ) Wt 124 kg (273 lb 5.9 oz) LMP (LMP Unknown) BMI 50.00 kg/m? General: a/o x 3, NAD Thyroid: normal, midline, no palpable masses Breasts: normal, symmetric, no nipple discharge Abdomen: normal, BS, soft, NT, ND, Body mass index is 50 kg/m?. External Genitalia: normal, no lesions Vagina: normal, no lesions / odor / discharge Cervix: normal, nulliparous, NT, mobile, IUD strings not visualized Uterus: Normal, mobile non-tender, limited by body habitus Adnexae: no masses or tenderness appreciated, limited by body habitus. ASSESSMENT/PROBLEM LIST/PLANS: 33 year old here for annual exam: 1.) await pap/HPV results, discussed pap screening recommendations, if WNL then next pap 2028 2.) contraception--IUD placed 06/2020 [facility], as noted at [facility] 12/2023 no IUD strings noted but US notes IUD positioned correctly and strings just inside os. 3.) right hydrosalpinx --continue to monitor, repeat 06/2024February 16, 2024 4:05 PM Cyndi Freedman, DO [facility] 02-16-2024 History of Present illness Narrative CC: Annual Exam Case Abdi 33 year old (c/s x 3) here for annual exam. No LMP secondary to IUD (inserted at [facility] 06/18/2020) PAST MEDICAL HISTORY Diagnosis Date Anemia Arthritis Bradycardia COVID Generalized anxiety disorder Hypothyroidism Migraines Ovarian cyst PAST SURGICAL HISTORY Procedure Laterality Date BLOOD PATCH after last / epidural - used own blood DELIVERY ONLY x 3 COLONOSCOPY SCREENING EGD W/O BRSH SPEC VARICIES INJ OVARIAN CYSTECTOMY Right 2019 PAST SURGICAL HISTORY OF laparoscopy x 2 TONSILLECTOMY & ADENOIDECTOMY <AGE 12 Review of Systems: WHIPPER BEATER: SEE HPI The remainder of the review of systems is negative. I have confirmed and edited as necessary, the PFSH and ROS obtained by others. Director Of Operations Support offered: Patient declines. The sensitive examination was discussed with the Patient or Patient's Authorized Staff Attorney. As applicable, any other physician, advance practice provider, medical student, or other health professional student that will be observing or involved in the sensitive examination for educational or training purposes was discussed with the Patient or Authorized Staff Attorney. The Patient or Authorized Staff Attorney has agreed to proceed with the sensitive examination. (Sensitive examination includes inspection and/or palpation of the breasts, pelvis, prostate and anorectal regions) Exam: BP 112/75 Pulse 66 Ht 157.5 cm (5' 2 ) Wt 124 kg (273 lb 5.9 oz) LMP (LMP Unknown) BMI 50.00 kg/m General: a/o x 3, NAD Thyroid: normal, midline, no palpable masses Breasts: normal, symmetric, no nipple discharge Abdomen: normal, BS, soft, NT, ND, Body mass index is 50 kg/m . External Genitalia: normal, no lesions Vagina: normal, no lesions / odor / discharge Cervix: normal, nulliparous, NT, mobile, IUD strings not visualized Uterus: Normal, mobile non-tender, limited by body habitus Adnexae: no masses or tenderness appreciated, limited by body habitus. ASSESSMENT/PROBLEM LIST/PLANS: 33 year old here for annual exam: 1.) await pap/HPV results, discussed pap screening recommendations, if WNL then next pap 2028 2.) contraception--IUD placed 06/2020 [facility], as noted at [facility] 12/2023 no IUD strings noted but US notes IUD positioned correctly and strings just inside os. 3.) right hydrosalpinx --continue to monitor, repeat 06/2024February 16, 2024 4:05 PM Cyndi Freedman DO documented in this encounter [facility] 02-09-2024 Note HNO ID: [id number] Author: VALDEZ REYES MD Service: ? Author Type: Physician Type: Progress Notes Filed: 02/09/2024 15:53 Note Text: This document has been created with the use of voice recognition technology. It may contain inaccuracies: misspellings, inaccurate syntax or word sense that escaped review. The patient is seen at the request of self for evaluation and an opinion regarding treatment. 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 HISTORY OF PRESENT ILLNESS: PAIN EVALUATION 02/08/2024 1057 Pain Level: 5 Pain Location: Knee-Right Description: Sharp Duration Amount of Time: 4 Duration Units: Months Frequency: Intermittent Intervention/Comfort measure: Reposition;Relaxation;Positioning;Medi cation;Cold HISTORY: Case Abdi has complains of right knee pain since September. She states that she noted some aching and then stepped wrong with increasing posterior medial knee pain. She was evaluated at [facility] and had an MRI which demonstrates osteoarthritic changes and a medial meniscus tear. She has been treated conservatively with Mobic and ice and physical therapy. She does feel like she has had at least 50% improvement in her pain. Continues to complain of a pinching sensation posteriorly. No other musculoskeletal complaints ROS: REVIEW OF SYMPTOMS: Constitutional: patient denies any recent fever or significant change in weight Gastrointestinal: patient denies any current abdominal discomfort Musculoskeletal: as noted in the HPI Neurologic: as noted in the HPI SOCIAL HISTORY: Tobacco Use: Types: Cigarettes ALLERGIES: ALLERGIES No Known Allergies PAST MEDICAL HISTORY: PAST MEDICAL HISTORY Diagnosis Date Anemia Arthritis Bradycardia COVID Generalized anxiety disorder Hypothyroidism Migraines Ovarian cyst SOCIAL HISTORY: Tobacco Use: Types: Cigarettes EXAMINATION: BMI= 51.6 GENERAL: Appears healthy, well-nourished, no deformities. ORIENTATION: Alert and oriented to person place and time HABITUS: Morbidly obese GAIT: Normal, the patient did not have trouble getting onto the exam table. right knee exam: Trace effusion Neutral alignment Active full extension, flexion 120. Good patellar tracking/moderate positive patella femoral crepitation Positive pain with palpating medial compartment, negative pain with palpating lateral compartment. Stable to varus and valgus stresses. Ronda is negative Negative anterior/posterior drawer. Pain with McMurrays Palpable dorsalis pedis pulse Calf soft and nontender. Hip exam negative Intact sensation to light touch distally. RADIOGRAPHS: XR Obtained today and personally reviewed by myself demonstrating osteoarthritis MRI: Personally reviewed. Medial meniscus tear. Posterior horn longitudinal complex IMPRESSION: Encounter Diagnosis ICD-10-CM 1. Complex tear of medial meniscus of right knee as current injury, initial encounter S83.231A 2. Primary osteoarthritis of right knee M17.11 Procedures Plan: Right knee medial meniscus tear with underlying osteoarthritis and morbid obesity. I do think she has some meniscal symptomatology and given questionable history of injury. I discussed treatment options both conservative and operative. I discussed conservative treatment and offered a cortisone injection which she declined today but may consider. I discussed a physical therapy bracing activity modification and the Mobic which she is taking. From a surgical standpoint I discussed arthroscopy and debridement. I discussed the potential for residual pain given the arthritic changes. I discussed the procedure postoperative rehab. She reports 50% improvement and wants to continue with the conservative treatment. She will continue with the therapy. If she wants to consider the injection she will let me know. Will follow-up in 2 months 30 spent with [facility] review and review of care everywhere, evaluation the patient, personal review of diagnostic studies, discussion of surgical treatment and options, documentation and coordination of care Valdez Reyes MD [facility] 02-09-2024 History of Present illness Narrative This document has been created with the use of voice recognition technology. It may contain inaccuracies: misspellings, inaccurate syntax or word sense that escaped review. The patient is seen at the request of self for evaluation and an opinion regarding treatment. 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 HISTORY OF PRESENT ILLNESS: PAIN EVALUATION 02/08/2024 1057 Pain Level: 5 Pain Location: Knee-Right Description: Sharp Duration Amount of Time: 4 Duration Units: Months Frequency: Intermittent Intervention/Comfort measure: Reposition;Relaxation;Positioning;Medi cation;Cold HISTORY: Case Abdi has complains of right knee pain since September. She states that she noted some aching and then stepped wrong with increasing posterior medial knee pain. She was evaluated at [facility] and had an MRI which demonstrates osteoarthritic changes and a medial meniscus tear. She has been treated conservatively with Mobic and ice and physical therapy. She does feel like she has had at least 50% improvement in her pain. Continues to complain of a pinching sensation posteriorly. No other musculoskeletal complaints ROS: REVIEW OF SYMPTOMS: Constitutional: patient denies any recent fever or significant change in weight Gastrointestinal: patient denies any current abdominal discomfort Musculoskeletal: as noted in the HPI Neurologic: as noted in the HPI SOCIAL HISTORY: Tobacco Use: Types: Cigarettes ALLERGIES: ALLERGIES No Known Allergies PAST MEDICAL HISTORY: PAST MEDICAL HISTORY Diagnosis Date Anemia Arthritis Bradycardia COVID Generalized anxiety disorder Hypothyroidism Migraines Ovarian cyst SOCIAL HISTORY: Tobacco Use: Types: Cigarettes EXAMINATION: BMI= 51.6 GENERAL: Appears healthy, well-nourished, no deformities. ORIENTATION: Alert and oriented to person place and time HABITUS: Morbidly obese GAIT: Normal, the patient did not have trouble getting onto the exam table. right knee exam: Trace effusion Neutral alignment Active full extension, flexion 120. Good patellar tracking/moderate positive patella femoral crepitation Positive pain with palpating medial compartment, negative pain with palpating lateral compartment. Stable to varus and valgus stresses. Ronda is negative Negative anterior/posterior drawer. Pain with McMurrays Palpable dorsalis pedis pulse Calf soft and nontender. Hip exam negative Intact sensation to light touch distally. RADIOGRAPHS: XR Obtained today and personally reviewed by myself demonstrating osteoarthritis MRI: Personally reviewed. Medial meniscus tear. Posterior horn longitudinal complex IMPRESSION: Encounter Diagnosis ICD-10-CM 1. Complex tear of medial meniscus of right knee as current injury, initial encounter S83.231A 2. Primary osteoarthritis of right knee M17.11 Procedures Plan: Right knee medial meniscus tear with underlying osteoarthritis and morbid obesity. I do think she has some meniscal symptomatology and given questionable history of injury. I discussed treatment options both conservative and operative. I discussed conservative treatment and offered a cortisone injection which she declined today but may consider. I discussed a physical therapy bracing activity modification and the Mobic which she is taking. From a surgical standpoint I discussed arthroscopy and debridement. I discussed the potential for residual pain given the arthritic changes. I discussed the procedure postoperative rehab. She reports 50% improvement and wants to continue with the conservative treatment. She will continue with the therapy. If she wants to consider the injection she will let me know. Will follow-up in 2 months 30 spent with epic review and review of care everywhere, evaluation the patient, personal review of diagnostic studies, discussion of surgical treatment and options, documentation and coordination of care Valdez Reyes MD documented in this encounter [facility] 02-05-2024 Telephone encounter Note Botox referral sent to pharmacy. Ema Rojo RN [facility] 02-05-2024 Miscellaneous Notes Botox referral sent to pharmacy. Ema Rojo RN documented in this encounter [facility] 02-04-2024 Instructions Michael Hitchcock APRN.SENIOR PLANNING MANAGER - 02/04/2024 3:52 PM EDT Instruction after Botox injection: - If you have any pain or swelling use ice, 20 min on and 20 min off. Do not rub or massage the area for 24 hrs. - If you have any neck stiffness, you may use heat and do stretching exercises. - This should improve over the next 5 days. - If it does not, call our office at [phone] for further instructions. documented in this encounter [facility] 02-04-2024 Note HNO ID: [id number] Author: MICHAEL HITCHCOCK APRN.CNP Service: ? Author Type: Nurse Practitioner Type: Progress Notes Filed: 02/04/2024 16:02 Note Text: Answers submitted by the patient for this visit: Headache Questionnaire (Submitted on 02/01/2024) How many days of work or school have you missed due to headaches in the last month? : 0 In the last month, how many headache days did you experience ALL of the following symptoms: decreased productivity, light sensitivity and nausea?: 1 How many days have you been completely free of headache pain in the last month? : 7 Follow-Up Onabotulinum Toxin A (BotoxTM) for Migraine Indication: Chronic Intractable Migraine Treatment #: 2 Referral Expiration: 04/04/2024 Prior to the initiation of the FIRST treatment with Onabotulinum Toxin A, the patient reported the following average headache frequency over the past 3 MONTHS: Number of moderate-severe migraine days/month: 2 Number of mild migraine days/month: 28 Number of headache free days/month: 0 (0 headache-free hours) After treatment with Onabotulinum Toxin A: Number of moderate-severe migraine days/month: 1 Number of mild migraine days/month: 22 Number of headache free days/month: 7 (168 headache-free hours) Patient reduction in overall migraine days: Yes Patient reduction in moderate-severe migraine days: Yes Patient reduction of headache hours by 100 hours or more: Yes (reduction of 168 hours) Individual has obtained clinical benefit deemed significant by individual or prescriber (Y/N): Yes Patient's quality of life and ability to perform ADLs has improved (Y/N): Yes Side effects: none Wearing off: No The patient has been assessed for disorders which could contribute to breathing or swallowing difficulty, and there is no contraindication with PREEMPT Botox. There is no documented allergic reaction/hypersensitivity to any botulinum toxin and there is no active infection at proposed injection site. HEADACHE SCORES: 08/13/2023 10/28/2023 02/01/2024 Headache Questions ID Migraine Screener: 2 (Positive) ER visits in the last year: 2 ER visits since last office visit: 0 Hospital stays in the last year: 0 Hospital stays since last office visit 0 Limited ADLs in the last month: 3 10 3 Days missed from work or school in the last month: 1 1 0 Days headache pain free in the last month: 0 0 7 Days per month with ALL of the following symptoms - decreased productivity, light sensitivity and nausea: 7 2 1 Initial improvement of headache after botox injection at last visit: Not applicable, I did not have a botox injection at my last visit Much improved PRN medication usage in the last month: 20 10 10 Patient impression of improvement since last visit: Not applicable, this is my first visit No change 08/13/2023 10/28/2023 02/01/2024 HIT-6 HIT-6 64 (Severe impact) 61 (Severe impact) 64 (Severe impact) 08/13/2023 10/28/2023 02/01/2024 NAYELI - 2/7 SCORES NAYELI-2 Score 2 4 5 NAYELI-7 Score 14 8 08/13/2023 10/28/2023 02/01/2024 Migraine Specific QOL - Higher scores indicate better HRQL Role Function-Restrictive Transformed Score (range: 0-100) 45.71 60 60 Role Function-Preventive Transformed Score (range: 0-100) 65 80 75 Emotional Function Transformed Score (range: 0-100) 40 80 46.67 02/01/2024 10/28/2023 08/13/2023 PHQ-9 Score 8 10 9 BP 108/73 (BP Site: Left Arm, BP Position: Sitting, BP Cuff Size: Large Adult) Pulse 66 LMP (LMP Unknown) Patient name: Case Abdi : 1990 ALLERGIES No Known Allergies UNIVERSAL PROTOCOL / SAFETY CHECKLIST Procedure: Onabotulinum toxin A for migraine Informed Consent Consent Obtained: Written Steele Protocol A moment to CARE was completed SIGN IN Personnel directly involved with the procedure wore the appropriate PPE Special Equipment: N/A Patient/Surrogate Stated/Verified: Patient name, Date of , Relevant allergies and Intended procedure TIME OUT Intended patient and procedure match the source document(s) Consent documented and matches the intended procedure No relevant labs, photos, and/or imaging studies were applicable for review. Correct side/site marked and visible. Medications required for procedure verified. No fire risk assessment and interventions applicable. No implant(s) inserted. SIGN OUT No specimen collected. No instruments, equipment or retained foreign bodies applicable. Post-procedure follow-up management communicated and Plan of Care Visit completed when applicable Written Consent Obtained: Written Injection Sites Left (Units) Left (Sites) Right (Units) Right (Sites) TOTAL (Units) Tester Armature Or Fields 5 1 5 1 10 Procerus Units: 5 Sites: 1 5 Frontalis 10 2 10 2 20 Temporalis optional follow the pain 20 10 4 2 20 10 4 2 60 Occipitalis optional follow the pain 15 10 3 2 15 10 3 2 50 Cervical PSP 10 2 10 2 20 Trapezius optional follow the pain 15 2.5 3 (more content not included)... [facility] 02-04-2024 History of Present illness Narrative Images from the original note were not included. Answers submitted by the patient for this visit: Headache Questionnaire (Submitted on 02/01/2024) How many days of work or school have you missed due to headaches in the last month? : 0 In the last month, how many headache days did you experience ALL of the following symptoms: decreased productivity, light sensitivity and nausea?: 1 How many days have you been completely free of headache pain in the last month? : 7 Follow-Up Onabotulinum Toxin A (BotoxTM) for Migraine Indication: Chronic Intractable Migraine Treatment #: 2 Referral Expiration: 04/04/2024 Prior to the initiation of the FIRST treatment with Onabotulinum Toxin A, the patient reported the following average headache frequency over the past 3 MONTHS: Number of moderate-severe migraine days/month: 2 Number of mild migraine days/month: 28 Number of headache free days/month: 0 (0 headache-free hours) After treatment with Onabotulinum Toxin A: Number of moderate-severe migraine days/month: 1 Number of mild migraine days/month: 22 Number of headache free days/month: 7 (168 headache-free hours) Patient reduction in overall migraine days: Yes Patient reduction in moderate-severe migraine days: Yes Patient reduction of headache hours by 100 hours or more: Yes (reduction of 168 hours) Individual has obtained clinical benefit deemed significant by individual or prescriber (Y/N): Yes Patient's quality of life and ability to perform ADLs has improved (Y/N): Yes Side effects: none Wearing off: No The patient has been assessed for disorders which could contribute to breathing or swallowing difficulty, and there is no contraindication with PREEMPT Botox. There is no documented allergic reaction/hypersensitivity to any botulinum toxin and there is no active infection at proposed injection site. HEADACHE SCORES: 08/13/2023 10/28/2023 02/01/2024 Headache Questions ID Migraine Screener: 2 (Positive) ER visits in the last year: 2 ER visits since last office visit: 0 Hospital stays in the last year: 0 Hospital stays since last office visit 0 Limited ADLs in the last month: 3 10 3 Days missed from work or school in the last month: 1 1 0 Days headache pain free in the last month: 0 0 7 Days per month with ALL of the following symptoms - decreased productivity, light sensitivity and nausea: 7 2 1 Initial improvement of headache after botox injection at last visit: Not applicable, I did not have a botox injection at my last visit Much improved PRN medication usage in the last month: 20 10 10 Patient impression of improvement since last visit: Not applicable, this is my first visit No change 08/13/2023 10/28/2023 02/01/2024 HIT-6 HIT-6 64 (Severe impact) 61 (Severe impact) 64 (Severe impact) 08/13/2023 10/28/2023 02/01/2024 NAYELI - 2/7 SCORES NAYELI-2 Score 2 4 5 NAYELI-7 Score 14 8 08/13/2023 10/28/2023 02/01/2024 Migraine Specific QOL - Higher scores indicate better HRQL Role Function-Restrictive Transformed Score (range: 0-100) 45.71 60 60 Role Function-Preventive Transformed Score (range: 0-100) 65 80 75 Emotional Function Transformed Score (range: 0-100) 40 80 46.67 02/01/2024 10/28/2023 08/13/2023 PHQ-9 Score 8 10 9 BP 108/73 (BP Site: Left Arm, BP Position: Sitting, BP Cuff Size: Large Adult) Pulse 66 LMP (LMP Unknown) Patient name: Case Abdi : 1990 ALLERGIES No Known Allergies UNIVERSAL PROTOCOL / SAFETY CHECKLIST Procedure: Onabotulinum toxin A for migraine Informed Consent Consent Obtained: Written Steele Protocol A moment to CARE was completed SIGN IN Personnel directly involved with the procedure wore the appropriate PPE Special Equipment: N/A Patient/Surrogate Stated/Verified: Patient name, Date of , Relevant allergies and Intended procedure TIME OUT Intended patient and procedure match the source document(s) Consent documented and matches the intended procedure No relevant labs, photos, and/or imaging studies were applicable for review. Correct side/site marked and visible. Medications required for procedure verified. No fire risk assessment and interventions applicable. No implant(s) inserted. SIGN OUT No specimen collected. No instruments, equipment or retained foreign bodies applicable. Post-procedure follow-up management communicated and Plan of Care Visit completed when applicable Written Consent Obtained: Written Injection Sites Left (Units) Left (Sites) Right (Units) Right (Sites) TOTAL (Units) Tester Armature Or Fields 5 1 5 1 10 Procerus Units: 5 Sites: 1 5 Frontalis 10 2 10 2 20 Temporalis optional follow the pain 20 10 4 2 20 10 4 2 60 Occipitalis optional follow the pain 15 10 3 2 15 10 3 2 50 Cervical PSP 10 2 10 2 20 Trapezius optional follow the pain 15 2.5 3 1 15 2.5 3 1 35 Total Units used: 200 Total Units wasted: 0 Prior Therapies Duration of Use Dose Side effect Other Therapies Nerve blocks occipital, supraorbital Analgesic Ketorolac (Toradol) Tramadol (Ultram) Anti-Convulsant Divalproex sodium (Depakote) Gabapentin (Neurontin) Topiramate (Topamax, Trokendi XL, Qudexy) Anti-Depressant and Antipsychotic Bupropion (Wellbutrin) Sertraline (Zoloft) Anti-Migraine Eletriptan (Relpax) Rizatriptan (Maxalt) Sumatriptan (Imitrex, Sumavel) Blood Pressure Lisinopril (Zestril) GEPANTS Rimegepant (Nurtec) Botulinum Toxin Onabotulinum Toxin A (Botox) Muscle Relaxer Cyclobenzaprine (Flexeril) Supplements Magnesium Other Medications Methylprednisolone (Medrol) Michael Hitchcock APRN.SENIOR PLANNING MANAGER documented in this encounter [facility] 01-21-2024 Note Date of Procedure 01/21/2024. Quality Right Eye Good. Left Eye Good. NFL Interpretation Right Eye RNFL Thickening. Left Eye RNFL Thickening. Interval Change Right Eye Stable. Left Eye Stable. [facility] 01-21-2024 Note HNO ID: [id number] Author: TIERRA ROJAS, DINH Service: ? Author Type: CAR DEALER Type: Progress Notes Filed: 01/21/2024 14:22 Note Text: ASSESSMENT/PLAN: 1. IIH (idiopathic intracranial hypertension) - ICD9: 348.2, ICD10: G93.2 (primary diagnosis) Follow up from neurology MRI had some findings more common in IIH per notes LP was a normal opening pressure Unlikely IIH due to normal LP and eye exam showing no edema visible Patient educated the small congested nerves do make seeing edema difficult if it was very mild Visual field OD: Normal; no enlarged blind spot or neurological defect OS: Nonspecific but no enlarged blind spot or neurological defect RNFL Both eyes: thickened but not edematous and stable to baseline Patient cancelled MRV due to illness Recommend she discuss this and reschedule this through her neurologist 2. Myopia of both eyes with astigmatism - ICD9: 367.1, 367.20, ICD10: H52.13, H52.203 New glasses optional Patient will need contact lens evaluation on a day she has her contact lenses on Return to clinic: visual field, dilate, NOCT 6 months, contact lens evaluation at that visit or sooner if she needs Tierra Rojas, OD I have confirmed and edited as necessary the relevant HPI, ophthalmic history, ROS, and the neuro exam findings as obtained by others. I have seen and examined this patient. I have discussed the case and the management of this patient's care with the Resident/Fellow, if applicable. I also have reviewed and agree with the assessment and plan as stated above and agree with all of its relevant components. Tierra Rojas, OD January 21, 2024 2:14 PM [facility] 01-21-2024 History of Present illness Narrative ASSESSMENT/PLAN: 1. IIH (idiopathic intracranial hypertension) - ICD9: 348.2, ICD10: G93.2 (primary diagnosis) Follow up from neurology MRI had some findings more common in IIH per notes LP was a normal opening pressure Unlikely IIH due to normal LP and eye exam showing no edema visible Patient educated the small congested nerves do make seeing edema difficult if it was very mild Visual field OD: Normal; no enlarged blind spot or neurological defect OS: Nonspecific but no enlarged blind spot or neurological defect RNFL Both eyes: thickened but not edematous and stable to baseline Patient cancelled MRV due to illness Recommend she discuss this and reschedule this through her neurologist 2. Myopia of both eyes with astigmatism - ICD9: 367.1, 367.20, ICD10: H52.13, H52.203 New glasses optional Patient will need contact lens evaluation on a day she has her contact lenses on Return to clinic: visual field, dilate, NOCT 6 months, contact lens evaluation at that visit or sooner if she needs Tierra Rojas, OD I have confirmed and edited as necessary the relevant HPI, ophthalmic history, ROS, and the neuro exam findings as obtained by others. I have seen and examined this patient. I have discussed the case and the management of this patient's care with the Resident/Fellow, if applicable. I also have reviewed and agree with the assessment and plan as stated above and agree with all of its relevant components. Tierra Rojas, OD January 21, 2024 2:14 PM documented in this encounter [facility] 01-19-2024 Telephone encounter Note Pt advised of CPP and scheduling information. Pt plans on scheduling 6m us and f/u at her next OV. [facility] 01-19-2024 Miscellaneous Notes Pt advised of CPP and scheduling information. Pt plans on scheduling 6m us and f/u at her next OV. Called pt LVM. PER PROVIDER: please call patient to schedule follow up US 6 months from 01/05/2024 then OV with me CPP follow up thanks forget to schedule yesterday sorry FIRST ATTEMPT: Called pt LVM on main number. documented in this encounter [facility] 01-19-2024 Telephone encounter Note Called pt LVM. [facility] 01-15-2024 Telephone encounter Note PER PROVIDER: please call patient to schedule follow up US 6 months from 01/05/2024 then OV with me CPP follow up thanks forget to schedule yesterday sorry FIRST ATTEMPT: Called pt LVM on main number. [facility] 01-14-2024 Telephone encounter Note Received message from lab, they need a new order for the DsDNA. [facility] 01-14-2024 Miscellaneous Notes Received message from lab, they need a new order for the DsDNA. documented in this encounter [facility] 01-14-2024 History of Present illness Narrative CC: Pelvic Pain Management: Case Abdi is a 33 year old 3 Para 3, with no LMP secondary to IUD, who presents for management of pelvic pain. Pelvic pain started after IUD, intermittent, a lot of pressure, ?cramping, uncomfortable, can feel sharp like right ovary, feels pressure so great that something is going to fall out but does not--feel like around cycle has symptoms but no bleeding. IUD inserted 06/18/2020 [facility]. Family History: Denies breast/uterine/ovarianl/vaginal or vulvar cancers. PGM Cervical Cancer Patient is identified by name and birthdate: Yes Medications were reviewed and verified. Her health maintenance record has been reviewed and has been updated: Yes Is patient having any pain? No 0 on a scale of 0 to 10 Obstetrical History: (C/S x 3) Gynecological history: History of HPV / abnormal paps / STD's: No Problem with fibroids / cysts / endo / WHIPPER BEATER CA: No Problem with urinary or bowel incontinence: No Menarche 12 years old Periods regular every 28-30 days Cramps: Yes Clots: Yes Cycles: regular Menopausal symptoms: No Contraceptive history: Tubal PAST MEDICAL HISTORY No date: Anemia No date: Arthritis No date: Bradycardia No date: COVID No date: Generalized anxiety disorder No date: Hypothyroidism No date: Migraines No date: Ovarian cyst PAST SURGICAL HISTORY No date: BLOOD PATCH Comment: after last / epidural - used own blood No date: DELIVERY ONLY Comment: x 3 No date: COLONOSCOPY SCREENING No date: [facility] 2019: OVARIAN CYSTECTOMY; Right No date: PAST SURGICAL HISTORY OF Comment: laparoscopy x 2 No date: TONSILLECTOMY & ADENOIDECTOMY <AGE 12 Current Outpatient Medications Medication Sig semaglutide, weight loss, (WEGOVY) 0.25 mg/0.5 mL pen injector Inject 0.5 mL subcutaneously one time a week. Change to next dose after 4 weeks. [START ON 01/18/2024] semaglutide, weight loss, (WEGOVY) 0.5 mg/0.5 mL pen injector Inject 0.5 mL subcutaneously one time a week. Patient should start on January 18, 2024. esomeprazole (NEXIUM) 40 mg capsule TAKE 1 CAPSULE BY MOUTH TWO TIMES A DAY BEFORE MEALS ooghsh-mljqvlqe-nghmjbn (ZENPEP) 25,000-79,000- 105,000 unit delayed release capsule Take 1 capsule by mouth three times a day with meals. iv contrast (will be provided with radiology test) CT ABD/PEL -Inject, intravenously, once for 1 dose.No IV access, insert saline lock prior to the beginning of sedation, infusion, injection of imaging exam. Discontinue saline lock post exam. If Pt. has a central line or IVAD, may access for administration according to line specific nursing protocol. Once exam is complete flush line and de-access according to line specific nursing protocol in the CT contrast administration guidelines link. enteric contrast (will be provided with radiology test) For CT ABD/PEL W IVCON Routine order Administer, As Directed One Time Only, via Oral, Rectal, both Oral and Rectal, Enteric Tube, Stoma or Indwelling Catheter, Enteric Contrast as designated per enteric contrast guidelines hyoscyamine SR (LEVBID) 0.375 mg 12 hr tablet TAKE 1 TABLET BY MOUTH TWICE A DAY topiramate (TOPAMAX) 100 mg tablet Take 1 tablet by mouth daily at bedtime. multivit with calcium,iron,min (WOMEN'S MULTIPLE VITAMINS ORAL) Take by mouth once daily. ascorbic acid/vitamin E/biotin (HAIR, SKIN, NAILS WITH BIOTIN ORAL) Take by mouth. sertraline (ZOLOFT) 25 mg tablet Take 25 mg by mouth. cholecalciferol, vitamin D3, (VITAMIN D3 ORAL) Take by mouth. buPROPion XL (WELLBUTRIN XL) 300 mg 24 hr tablet Take 300 mg by mouth once daily. MAGNESIUM ORAL Take by mouth. Current Facility-Administered Medications Medication Dose Route Frequency acetylcholine 10% solution - cchs compounding 20 mL IRRIGATION ONE TIME ALLERGIES No Known Allergies Social History Social History Narrative Not on file Review of Systems: WHIPPER BEATER: SEE HPI The remainder of the review of systems is negative. I have confirmed and edited as necessary, the PFSH and ROS obtained by others. Director Of Operations Support offered: Patient declines. Exam: BP 117/71 Pulse 70 Ht 157.5 cm (5' 2 ) Wt 128 kg (282 lb 3 oz) LMP (LMP Unknown) BMI 51.61 kg/m General: a/o x 3, NAD. Abdomen: normal, BS, soft, NT, ND, Body mass index is 51.61 kg/m . Indication Pelvic pain, IUD strings lost Impression Uterus is 86 x 58 x 45 mm and anteverted Myometrium does not have any direct signs of adenomyosis There is a scar defect of 4 mm with 3 mm of overlying myometrium. Adjacent myometrium is 8 mm IUD is visualized best on 3D imaging, positioned correctly at the uterine fundus Cervix is normal at the nabothian cyst Endometrium is 4 mm without color-flow No free fluid in the cul-de-sac Right ovary is normal Within the right adnexa there is a tubular dilated structure measuring 28 x 9 mm with anechoic fluid most likely hydrosalpinx. However other pathology cannot be excluded. Left ovary is normal Recommendations 1. IUD positioned correctly. Strings are located about 19 mm from the external os. 2. Hydrosalpinx. 3. scar defect Method Transabdominal and transvaginal ultrasound examination, 3D ultrasound examination, Color Doppler examination. View: Adequate visualization Uterus Uterus: Visualized Uterus position: anteverted Description of uterine malformations: normally shaped Myometrium: normal Endometrium: endometrial midline: linear Cervix details: normal Uterus length 86 mm Uterus width 58 mm Uterus height 45 mm Uterus Vol 117.4 cm Endometrial thickness, total 3.7 mm IUCD Position control IUCD type: Mirena intrauterine system. Location: positioned correctly at the fundus of the uterus, with strings just inside the cervix Right Ovary Rt ovary: Visualized Outline: smooth Rt ovary morphology: premenopausal normal follicular Rt ovary D1 24 mm Rt ovary D2 21 mm Rt ovary D3 15 mm Rt ovary Vol 4.0 cm Right Tube Size 28.0 mm x 9.0 mm x 17.0 mm Appearance: Hydrosalpinx Left Ovary Lt ovary: Visualized Outline: smooth Lt ovary morphology: premenopausal normal follicular Lt ovary D1 26 mm Lt ovary D2 22 mm Lt ovary D3 20 mm Lt ovary Vol 6.0 cm Cul de Sac no free fluid visualized Procedure To characterize the [IUD], three dimensional imaging was created on a dedicated stand-alone 3D workstation with images created and archived, and supervised and reviewed by the interpreting physician utilizing images from an ultrasound scan performed today. Performed By: Marya Hilliard RDMS Read By: Talha See M.D. ASSESSMENT/PROBLEM LIST/PLANS: 33 year old WF here for pelvic pain management: 1.) US findings as copied above, discussed in detail with Case (right hydrosalpinx, and proper IUD position with strings in endocervical canal and 3 to 4 mm c/s scar defect), unsure what she would like to do, will think about discussion today (pros/cons) and call office if desiring IUD removal, await call, at minimum will schedule US 6 months for stability of pelvic findings, RTO as needed or as scheduled. 2.) pap/HPV 02/2023 with Julien Arthur DO ([employer] CHARGING [employer]OL SETTER--review of notes shows discussion of laparoscopic resection of c/s scar and or hysterectomy) (I spent a total of 35 minutes on the date of the service which included preparing to see the patient, [id number] patient care, completing clinical documentation, obtaining and/or reviewing separately obtained history, performing a medically appropriate examination, counseling and educating the patient/family/caregiver, ordering medications, tests, or procedures, communicating results to the patient/family/caregiver, and care coordination (not separately reported). January 14, 2024 11:37 AM Cyndi Freedman DO documented in this encounter [facility] 01-07-2024 History of Present illness Narrative Images from the original note were not included. Rheumatology History & Physical Patient name: Case Abdi Requesting provider: No att. providers found SUBJECTIVE INITIAL RHEUMATOLOGY VISIT 11/26/2023 (with Marcial Queen): Ms. Case Abdi is a 33 year old female who has a past medical history of Anemia, obesity, ANTHONY, migraines, former smoker, IBS, Bradycardia, COVID, Generalized anxiety disorder, Hypothyroidism, and Migraines. who presents for rheumatologic evaluation. PSHx: She has a past surgical history that includes tonsillectomy & adenoidectomy <age 12; Colonoscopy Screening; egd w/o brsh spec varicies inj; delivery only; past surgical history of; blood patch; and ovarian cystectomy (Right, 2019). Allergies: She has No Known Allergies. Current Meds: mobic, zenpep, hyoscyamine sr, esomeprazole, topiramate, nurtec odt, multivit with calcium,iron,min, ascorbic acid/vitamin e/biotin, phentermine hcl, sertraline, cholecalciferol (vitamin d3), bupropion xl, magnesium, iv contrast, and enteric contrast Family History: family history includes Anesthesia Problems in her mother; Heart Attack in her paternal great-grandparent; Heart disease in her paternal great-grandparent; No Ocular Disease in her father, maternal grandfather, maternal grandmother, mother, paternal grandfather, and paternal grandmother; Parkinson s Disease in her father; Thyroid in her mother and sister. Social History: She reports that she quit smoking about 14 months ago. Her smoking use included cigarettes. She started smoking about 6 years ago. She has never used smokeless tobacco. She reports current alcohol use. She reports current drug use. Drug: Marijuana. Labs: Latest Ref Rng & Units 11/13/2023 07/10/2023 11/12/2022 CBC WBC 3.70 - 11.00 k/uL 7.70 7.97 5.05 Hemoglobin 11.5 - 15.5 g/dL 15.9 14.4 14.6 Hematocrit 36.0 - 46.0 % 46.1 42.0 41.3 Platelet Count 150 - 400 k/uL 292 267 232 Abs Neut (ANC) 1.45 - 7.50 k/uL 5.43 5.76 3.61 Abs Lymph 1.00 - 4.00 k/uL 1.68 1.59 1.00 Latest Ref Rng & Units 11/13/2023 07/10/2023 01/30/2023 11/12/2022 CMP Sodium 136 - 144 mmol/L 137 137 138 140 Potassium 3.7 - 5.1 mmol/L 4.2 4.0 4.5 4.1 Chloride 98 - 107 mmol/L 102 101 102 106 CO2 22 - 30 mmol/L 23 23 27 21 Glucose 74 - 99 mg/dL 99 81 90 95 BUN 7 - 21 mg/dL 16 16 20 15 Creatinine 0.58 - 0.96 mg/dL 0.93 0.99 0.93 1.00 Calcium 8.5 - 10.2 mg/dL 9.9 9.8 9.7 9.2 AST 13 - 35 U/L 18 19 17 ALT 7 - 38 U/L 26 20 15 Alkaline Phosphatase 34 - 123 U/L 120 102 92 Latest Ref Rng & Units 07/10/2023 12/30/2022 ESR, WSR WSR 0 - 20 mm/hr 5 10 Latest Ref Rng & Units 07/10/2023 12/30/2022 CRP CRP <0.9 mg/dL <0.3 <0.3 Latest Ref Rng & Units 11/26/2023 CK CK 42 - 196 U/L 106 Latest Ref Rng & Units 11/26/2023 Antibodies DNA Antibody <=200 IU/mL 10 Crithidia lucillae Negative Negative Anti-Sm <1.0 AI 1.4 Sm Antibody Negative Positive Ribosomal OPHTHALMOLOGY ASSISTANT Ab <1.0 AI <0.2 Ribosomal OPHTHALMOLOGY ASSISTANT Qualitative Negative Negative Chromatin Ab <1.0 AI <0.2 Chromatin Ab Qual Negative Negative SSA Antibody Qual Negative Negative Anti-SSA <1.0 AI <0.2 Anti-SSB <1.0 AI <0.2 OPHTHALMOLOGY ASSISTANT Antibody QUAL Negative Negative Scleroderma Ab Qual Negative Negative Scl-70 Abs, EIA <1.0 AI <0.2 Centromere Ab <1.0 AI <0.2 CENTROMERE AB QUAL Negative Negative KIRA-1 ANTIBODY, IGG <1.0 AI <0.2 KIRA 1 ANTIBODY QUAL Negative Negative Beta 2 Glycoprotein, IgM <20 SMU <9 Beta 2 Glycoprotein 1, IgA <=20 DK <10 Cardiolipin Ab, IgG <15.0 GPL <15.0 GPL <9.0 <9.0 Cardiolipin Ab, IgM <12.5 MPL <12.5 MPL <9.0 <9.0 Cardiolipin Ab, IgA <12.0 APL <12.0 APL <9.0 <9.0 PT Sec 9.7 - 13.0 sec 10.6 PT INR 0.9 - 1.3 1.0 APTT 23.0 - 32.4 sec 29.4 Platelet Neut <1.9 Seconds 0.8 DRVVT Screen 32.0 - 45.7 seconds 38.3 DRVVT Confirm Ratio <1.32 1.12 DRVVT 1:1 Mix 32.0 - 45.7 seconds 36.0 Hex Phase Screen 34.0 - 51.8 seconds 50.3 Hex Phase Confirm 34.2 - 47.9 seconds 43.7 Hex Phase Delta <7.1 delta seconds 6.6 APTT Screen 24.0 - 35.1 seconds 28.3 Thrombin Time <18.6 seconds <16.8 Anti Xa Inhib Assay <0.10 <0.10 Latest Ref Rng & Units 11/26/2023 11/12/2023 Urinalysis PROTEIN UA (POCT) Negative mg/dL Negative Protein/Creat Ratio <0.15 mg/mg <0.12 Labs: 11/08: sCr/LFT WNL Hgb 15.9; GUILLE screen+ positive anti-smooth muscle antibody 07/11: CRP WNL ESR WNL RHEUMATOLOGY EVALUATION 11/26/2023 Patient seen and examined - self-referral; per consult Dr Crain (GI) TODAY: -found to have recent +GUILLE +ASMA tests Per last GI evaluation 11/13/2023 Dr Crain: Was given diagnosis of IBS in the past per GI note HPI: Case Abdi, 33 year old female, followup for abdominal bloating and reflux. Over the past few years she has increased bloating, indigestion, and GERD. Symptoms have been worsening despite treatment. Previously following with GI in [place] treated for GERD and IBS-D. Over the years has failed several medications including pantoprazole, Carafate, dicyclomine, probiotics, Ibgard, metronidazole. Nexium helps GERD and Levbid helps pain but still with chronic symptoms. She is concerned about an autoimmune condition given generalized body aches, fatigue, and joint discomfort. Labs and imaging has been negative thus far including celiac serology, RUQ US and CCK HIDA. Last EGD and colonoscopy were 3 yrs ago. Negative family history Today: initial rheumatology evaluation; per patient she undergoes Flare ups of unwellness -stomach pain Will be going for CT A/P with contrast next week Was on phentramine to piper helper weight loss but this was stopped after seeing GI(adipex) - patient unable to tell if this has made a difference; recently started digestive enzymes with GI Noticing worsening polyarthralgia, polymyalgia - long standing h/o neck and back pain which she feels is worse after child Using meloxicam, notes that it helps her feel better; had a small injury at home w/ her R knee; saw outside provider at [facility]; started mobic; using voltaren gel Notes she lost 60lb but unfortunately gained it back over the past year Gets myalgias of upper arms that go into her elbows No h/o joint swelling No h/o raynaud's Notes sometimes gets ?eczema like rash over neck no h/o photosensitive rashes Sometimes gets inspiratory chest pain no h/o pericarditis/pleurisy No h/o oral ulcers; sometimes gets nasal sore maybe more when I have a runny nose One first trimester miscarriage No sicca symptoms Has dry eyes only a/w use of contacts Rheumatologic ROS +fatigue (+) in bold; all rest are negative/denies history of: Chest pain, shortness of breath, history of pleural effusion or pericarditis, oral/nasal ulcers, photosensitivity, rash, history of DVT/PE/&or miscarriages - one first trimester, renal disease, seizures, dry eyes, dry mouth, cervical lymphadenopathy or parotid gland swelling, raynaud's phenomenon, alopecia, psoriasis, history of iritis/uveitis or scleritis, nail pitting, dactylitis, history of sacroiliitis or inflammatory bowel disease, arm weakness in raising arms above head, leg weakness in standing up from a seated position, skin tightening, dysphagia, changes in vision, scalp tenderness, jaw claudication, stiffness in shoulders/hip girdle, auricular or nasal chondritis RHEUMATOLOGY VIRTUAL FOLLOW UP VISIT 01/07/2024: Patient seen and examined at [facility] ([facility]) rheumatology clinic for a follow up visit. Diagnostics since last visit: 12/08: DsDNA (-); negative crithidia; normal urine protein/cr ratio; Dye 1.4 (-)rest of SALOMON (-)APS: B2GP1, LAC, aCL; CK WNL XR KNEES: PENDING Today, patient seen virtually. Reviewed recent diagnostics in great detail including low positive dye antibody the muscular pain bothers me the most per patient most of her myalgias are in her upper extremities, chest. Sometimes gets leg muscle discomfort a lot of the times I can feel it in my upper arms I can feel it in my chest too Saw cardiology last year for chest pain last year, underwent workup including stress test and carotid duplex as below: LVEF: 74 % LEFT VENTRICLE The left ventricle is normal in size. Left ventricular systolic function is normal. Stress Test Findings: There is no scintigraphic evidence for inducible ischemia. There is no evidence of scarring. Sometimes gets chest discomfort with taking in a deep breath if I sometimes take in a significantly deep breath like a tender a little bit of a discomfort US CAROTID 01/07: RIGHT SIDE Internal carotid artery: 0-19% stenosis. Vertebral artery: Patent and antegrade flow noted. Innominate artery: Patent. Subclavian artery: Patent. LEFT SIDE Internal carotid artery: 0-19% stenosis. Vertebral artery: Patent and antegrade flow noted. Subclavian artery: Patent. Since last visit notes she underwent further workup for R knee pain and found to have a torn meniscus. ROS +fatigue +polymyalgia +polyarthralgia +shortness of breath, inspiratory chest pain at times +mouth sores (sometimes at gums, hard palate) +subjective LN enlargement at times (-)fevers, rash, raynaud's, sicca, alopecia, hematuria Saw GI recently underwent CT Abdomen/Pelvis: 1. Bilateral nonobstructive nephrolithiasis. 2. Otherwise, no acute process noted in the abdomen or pelvis. 3. Hepatic steatosis. Answers submitted by the patient for this visit: Review of Systems Rheumatology (Submitted on 01/03/2024) Fever : No Recent unintentional weight change: No Eye pain: Yes Eye redness: No Vision Disturbance: Yes Eye Dryness: No Nosebleeds: No Sores in your mouth: No Trouble Swallowing: No Dry Mouth: Yes Chest pain: No Leg Swelling: Yes A cough: No Shortness of breath: No Pain with breathing: No Heartburn: No Abdominal pain: Yes Diarrhea: No Black tarry stools: No Blood in urine: Yes Pain or burning with urination: No Joint pain or stiffness: Yes Muscle weakness: No Muscle aches: Yes Joint swelling: No Morning Stiffness in Joints: Yes A rash: No Skin Color Changes: No Hair Loss: Yes Nail Changes: No Headaches: Yes Numbness: Yes Memory Loss: Yes Swollen Glands: Yes OBJECTIVE Unable to examine patient given virtual nature of today's visit IMPRESSION & RECOMMENDATIONS Ms. Case Abdi is a 33 year old female who has a past medical history of Anemia, obesity, ANTHONY, migraines, former smoker, IBS, Bradycardia, COVID, Generalized anxiety disorder, Hypothyroidism, and Migraines. who presents for rheumatologic evaluation. 11/08: sCr/LFT WNL Hgb 15.9; GUILLE screen+ positive anti-smooth muscle antibody 07/11: CRP WNL ESR WNL Diagnostics since last visit: 12/08: DsDNA (-); negative crithidia; normal urine protein/cr ratio; Dye 1.4 (-)rest of SALOMON (-)APS: B2GP1, LAC, aCL; CK WNL CT Abdomen/Pelvis: 1. Bilateral nonobstructive nephrolithiasis. 2. Otherwise, no acute process noted in the abdomen or pelvis. 3. Hepatic steatosis. Pleasant 33 y/o F with medical history as above - referred to rheumatology in setting of +GUILLE, polymyalgia/polyarthralgia. She notes a family history of fibromyalgia. Patient follows with GI for abdominal pain, bloating, GERD (previously diagnosed with IBS with previous GI, last EGD/colonoscopy 3 years ago unremarkable). Given polymyalgia (upper extremities), body aches and fatigue, joint discomfort (shoulders, elbows, knees) a workup from GI was initiated which yielded +GUILLE (direct) and +ASMA antibody (recent LFTs normal). Explained to patient that ASMA is typically a/w autoimmune hepatitis (unlikely in setting of normal LFT; will defer to GI). ASMA is typically almost always associated with +GUILLE. ROS as above from rheumatologic perspective widely negative (no h/o recurrent photosensitive rashes, raynaud's, fevers, joint swelling/redness/warmth/inflammatory arthritis). ROS +one first trimester miscarriage (recent APS testing negative) Labs and workup initiated by rheumatology widely negative (-)DsDNA, (-)DsDNA by Crithidia, negative antiphospholipid ab's x 3, normal CK however labs with low positive anti-dye antibody of 1.4 of unclear clinical significance (which we will repeat). ROS+fatigue +polymyalgia/polyarthralgia, notes she sometimes gets mouth sores at gums and subjectively has enlarged lymph nodes from time to time (which she denies currently and has no prior imaging to objectify). Describes bouts of chest discomfort at times, sometimes a/w inspiration ?pleurisy - underwent cardiac workup 2022 with negative stress test and normal carotid duplex studies. Unclear whether her low titer dye antibody has any clinical significance at this time and I am reluctant to give her a diagnosis of SLE given she lacks majority of clinical domains needed for diagnosis. No h/o fevers, rash, raynaud's, sicca, alopecia. Will follow up TTE to evaluate persistent SOB/chest pain and r/o pericardial effusion that can be seen in pleurisy 2/2 SLE- will repeat lupus serologies and recommend patient come to the office for in person evaluation w/exam (today was a virtual follow up visit). Counseled regarding signs and symptoms to monitor for. Low threshold for HCQ if she starts to display more clinical features of SLE. Regarding chronic fatigue, polymyalgia, her strength exam last visit was normal. CK normal. She is in the process of establishing with functional/integrative medicine. H/o R knee meniscus tear - partaking in PT Will follow up labs, urine studies, TTE - RTC in person 1-2 months I spent a total of 40 minutes on the date of the service which included preparing to see the patient, [id number] patient care, completing clinical documentation, obtaining and/or reviewing separately obtained history, performing a medically appropriate examination, counseling and educating the patient/family/caregiver, ordering medications, tests, or procedures, communicating results to the patient/family/caregiver and care coordination (not separately reported). Marcial Queen MD Rheumatology Staff I have communicated my name and active licensure. The patient's identity and physical location were verified at the time of this visit. Either the patient or their legal publications sales representative has been informed of the risks and benefits of -- and alternatives to -- treatment through a remote evaluation and consents to proceed with the evaluation remotely. documented in this encounter [facility] 01-06-2024 Telephone encounter Note Discuss results and recommendations. Pt wishes to proceed w appt time to discuss management options. OV sched 02/02. [facility] 01-06-2024 Miscellaneous Notes Discuss results and recommendations. Pt wishes to proceed w appt time to discuss management options. OV sched 02/02. Attempted to reach patient - no answer LVM to return call Pelvic ultrasound showed IUD is correctly positioned within the uterus. The strings were visualized within the cervix Ultrasound also showed a possible hydrosalpinx within right ovary and scar defect. - hx removal of R and left partial salpingectomy per [facility] visit with Dr. Arthur 01/2023 If she is still having pelvic pain - recommend f/u with physician to discuss further management. Tammy Coffman APRN.CNP documented in this encounter [facility] 01-06-2024 Telephone encounter Note Attempted to reach patient - no answer LVM to return call Pelvic ultrasound showed IUD is correctly positioned within the uterus. The strings were visualized within the cervix Ultrasound also showed a possible hydrosalpinx within right ovary and scar defect. - hx removal of R and left partial salpingectomy per [facility] visit with Dr. Arthur 01/2023 If she is still having pelvic pain - recommend f/u with physician to discuss further management. Tammy Coffman APRN.SENIOR PLANNING MANAGER [facility] 01-05-2024 History of Present illness Narrative Pelvic ultrasound was performed on Case Abdi. To characterize the IUD, three dimensional imaging was created on a dedicated stand-alone 3D workstation with images created and archived, and supervised and reviewed by the interpreting physician utilizing images from an ultrasound scan performed today. Please see imaging tab for documentation and results. Talha See MD OBGYN Staff Physician SIGNATURE: Talha See MD PATIENT NAME: Case Abdi DATE: January 05, 2024 TIME: 1:00 PM PAGER/CONTACT #: Pager ([phone]) OBGYN Call Schedule: QGenda documented in this encounter [facility] 12-15-2023 History of Present illness Narrative Case Abdi is a 33 year old female who presents for pelvic pain, IUD in place HPI: Mirena IUD inserted 06/2020 for heavy menses - hx tubal ligation Since insertion - painful intercourse, vaginal discharge, pelvic pressure once a month. Feels like something is going to fall out of vagina. Pain can go into upper thighs. Similar to premenstrual symptoms. Increased vaginal discharge - no odor or itching hx ovarian cysts R ovarian cystectomy in [address] Arthur with [facility] who advised possible surgical option to remove scar tissue that could be contributing to her pelvic pain (hx C/S x3) OB History No obstetric history on file. 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 History Comments: Sexual Activity: No sexual activity data on record; No partner data on record Contraception: No contraception data on record PAST MEDICAL HISTORY Diagnosis Date Anemia Arthritis Bradycardia COVID Generalized anxiety disorder Hypothyroidism Migraines PAST SURGICAL HISTORY Procedure Laterality Date BLOOD PATCH after last / epidural - used own blood DELIVERY ONLY x 3 COLONOSCOPY SCREENING EGD W/O BRSH SPEC VARICIES INJ PAST SURGICAL HISTORY OF laparoscopy x 2 TONSILLECTOMY & ADENOIDECTOMY <AGE 12 FAMILY HISTORY Problem Relation Age of Onset No Ocular Disease Mother Thyroid Mother Anesthesia Problems Mother PONV No Ocular Disease Father Parkinson s Disease Father Thyroid Sister No Ocular Disease Maternal Grandmother No Ocular Disease Maternal Grandfather No Ocular Disease Paternal Grandmother No Ocular Disease Paternal Grandfather Heart disease Paternal great-grandparent Heart Attack Paternal great-grandparent Blood Clots No Family History Clotting Disorder No Family History Social History Tobacco Use Smoking status: Former Years: 5 Types: Cigarettes Quit date: 10/2022 Years since quittin.1 Smokeless tobacco: Never Tobacco comments: Social smoker- one pack every 2 weeks Vaping Use Vaping Use: Some days Substances: Nicotine, Flavoring Devices: Disposable Substance Use Topics Alcohol use: Yes Comment: usually 6-10 drinks a month, social Drug use: Yes Types: Marijuana Comment: few times a month Current Outpatient Medications Medication Sig esomeprazole (NEXIUM) 40 mg capsule TAKE 1 CAPSULE BY MOUTH TWO TIMES A DAY BEFORE MEALS MOBIC 15 mg tablet Take 1 tablet by mouth once daily. iv contrast (will be provided with radiology test) CT ABD/PEL -Inject, intravenously, once for 1 dose.No IV access, insert saline lock prior to the beginning of sedation, infusion, injection of imaging exam. Discontinue saline lock post exam. If Pt. has a central line or IVAD, may access for administration according to line specific nursing protocol. Once exam is complete flush line and de-access according to line specific nursing protocol in the CT contrast administration guidelines link. enteric contrast (will be provided with radiology test) For CT ABD/PEL W IVCON Routine order Administer, As Directed One Time Only, via Oral, Rectal, both Oral and Rectal, Enteric Tube, Stoma or Indwelling Catheter, Enteric Contrast as designated per enteric contrast guidelines hyoscyamine SR (LEVBID) 0.375 mg 12 hr tablet TAKE 1 TABLET BY MOUTH TWICE A DAY topiramate (TOPAMAX) 100 mg tablet Take 1 tablet by mouth daily at bedtime. multivit with calcium,iron,min (WOMEN'S MULTIPLE VITAMINS ORAL) Take by mouth once daily. ascorbic acid/vitamin E/biotin (HAIR, SKIN, NAILS WITH BIOTIN ORAL) Take by mouth. sertraline (ZOLOFT) 25 mg tablet Take 25 mg by mouth. cholecalciferol, vitamin D3, (VITAMIN D3 ORAL) Take by mouth. buPROPion XL (WELLBUTRIN XL) 300 mg 24 hr tablet Take 300 mg by mouth once daily. MAGNESIUM ORAL Take by mouth. ayzirn-oonbocwb-bwsiidg (ZENPEP) 25,000-79,000- 105,000 unit delayed release capsule Take 1 capsule by mouth three times a day with meals. rimegepant (NURTEC ODT) 75 mg disintegrating tablet Take 1 dissolvable tablet by mouth at migraine onset. May use once per day as needed. Phentermine HCl 37.5 mg tablet Take 1 tablet by mouth every morning (before breakfast) for 30 days. Current Facility-Administered Medications Medication Dose Route Frequency acetylcholine 10% solution - [facility] 20 mL IRRIGATION ONE TIME Allergies As of Date: 12/15/2023 (No Known Allergies) Fully Assessed 12/15/2023 REVIEW OF SYSTEMS Abdomen: No bloating, early satiety, indigestion, or increased flatulence. No abdominal pain, nausea, vomiting, diarrhea, or constipation. Bladder: No dysuria, gross hematuria, urinary frequency, urinary urgency, or incontinence. Breast: No breast lumps, nipple d/c, overlying skin changes, redness or skin retraction. Expanded ROS: N/A Allergies and current medication updated:Yes EXAM: BP 104/72 Pulse 60 Ht 5' 2 (1.58m) Wt 279 lb 15.8 oz (127.0kg) BMI 51.20 kg/(m^2). GENERAL: pleasant, female in no apparent distress HEENT: Normocephalic and atraumatic NECK: Supple and full range of motion DERMATOLOGY: Normal, without lesions, non-icteric, and non-hirsute BREAST: deferred CHEST: Normal inspiratory effort ABDOMEN: soft, non-tender, and no masses PELVIC: external genitalia normal, normal Bartholin's glands, urethra, Parkston's glands, no vulvar lesions, no cervical lesions, good vaginal support, physiologic discharge present, normal appearing perineal body and perianal region, IUD strings not visible - attempted to pull strings out of cervix with endo brush - able to see minimal string. very short BIMANUAL: deferred NEURO: alert and oriented x3,exam grossly non-focal EXTREMITIES: normal ASSESSMENT AND PLAN: 1. Pelvic pain in female - ICD9: 625.9, ICD10: R10.2 (primary diagnosis) - pelvic pain since 2020 following IUD insertion. occurs at same time each month - discussed the effect of Mirena IUD within the uterus - does not provide ovarian suppression. discussed adding on low dose WANDA, Naproxen 500mg BID with food about 5 days prior to symptoms onset. - pelvic ultrasound ordered to confirm placement of IUD - PELVIC US WHI 2. IUD (intrauterine device) in place - ICD9: V45.51, ICD10: Z97.5 - Mirena IUD inserted 07/08/2020 for heavy menses - IUD strings barely visible on exam today. Attempted to uncover strings from cervix with minimal success. Will order ultrasound to confirm location. - discussed if she would desire removal or need removal, may need surgical option due to no strings to remove cervix. - PELVIC US WHI 3. Vaginal discharge - ICD9: 623.5, ICD10: N89.8 - Aptima swabs obtained; will treat if abnormal - perineal hygiene discussed - KIM/TRICHOMONAS NAAT - BACTERIAL VAGINOSIS NAAT Tammy Coffman APRN.ALEXIS I spent a total of 30 minutes on the date of the service which included preparing to see the patient, [id number] patient care, completing clinical documentation, obtaining and/or reviewing separately obtained history, performing a medically appropriate examination, counseling and educating the patient/family/caregiver, ordering medications, tests, or procedures, and independently interpreting results (not separately reported). documented in this encounter [facility] 12-01-2023 History of Present illness Narrative Radiology Service Progress Note PATIENT NAME: Case Abdi DATE OF SERVICE: December 01, 2023 TIME: 3:03 PM PATIENT IDENTITY VERIFICATION COMPLETED USING TWO (2) IDENTIFIERS: Name and Date of confirmed by patient verbally. FALL SCREENING: Has the patient had 2 falls in the last year or 1 fall with injury or currently using an Ambulatory Assistive Device (Walker, Cane, Wheelchair, Crutches, etc.)? No PATIENT GENDER DATA: Female. status: : No status: NO. PATIENT RELEVANT IMPLANT DATA REVIEWED: Not Applicable PATIENT PRESENTS WITH AN IMPLANTABLE OR ATTACHED GIG TENDER: No RADIOLOGY DEPARTMENT: CT; Exam(s) Completed: Abdomen/Pelvis PERIPHERAL IV DATA: RAC 22g IV accessed SIGNED BY: RT Jessenia(Mulugeta) December 01, 2023 3:03 PM Radiology Service Progress Note DATE OF SERVICE: December 01, 2023 TIME: 1:38 PM PATIENT WEIGHT: 282 LBS PATIENT IDENTITY VERIFICATION COMPLETED USING TWO (2) STANDARD IDENTIFIERS: Name and Date of confirmed by patient verbally. FALL SCREENING: Has the patient had 2 falls in the last year or 1 fall with injury or currently using an Ambulatory Assistive Device (Walker, Cane, Wheelchair, Crutches, etc.)? No PATIENT GENDER DATA: Female. status: : No status: NO. ALLERGIES: Reviewed and unchanged CONTRAST ALLERGY: No EXAM: CT -CONTRAST INDUCED NEPHROPATHY RISK FACTORS: Not applicable CREATININE: Creatinine Date Value Ref Range Status 11/13/2023 0.93 0.58 - 0.96 mg/dL Final 07/10/2023 0.99 (H) 0.58 - 0.96 mg/dL Final 01/30/2023 0.93 0.58 - 0.96 mg/dL Final Estimated Glomerular Filtration Rate Date Value Ref Range Status 11/13/2023 83 >=60 mL/min/1.73m Final Comment: Estimated Glomerular Filtration Rate (eGFR) is calculated using the 2020 CKD-EPI creatinine equation. This equation utilizes serum creatinine, sex, and age as parameters. The creatinine assay has traceable calibration to isotope dilution-mass spectrometry. Refer to KDIGO guidelines for clinical interpretation. In patients with unstable renal function, e.g. those with acute kidney injury, the eGFR may not accurately reflect actual GFR. P.O.C.T. RESULTS: POC done: Yes, See Lab Tab December 01, 2023 TREATMENT: N/A and No Hydration needed. IV SITE: Ambulatory: A peripheral IV was started in the Right antecubital site with a Angio cath: 22 gauge. and A Saline lock was inserted per protocol IV SITE APPEARANCE: Clean,Dry and Intact unable to obtain iv pt sent to ct for further iv assessment SIGNATURE: Adenike Wiley RN PATIENT NAME: Case Abdi DATE: December 01, 2023 TIME: 1:38 PM documented in this encounter [facility] 11-30-2023 Telephone encounter Note Nursing called patient to forward the information from Dr Queen to patient and switched 01/07/24 appointment from in-person to hussein Smith RN November 30, 2023 12:05 PM [facility] 11-30-2023 Miscellaneous Notes Nursing called patient to forward the information from Dr Queen to patient and switched 01/07/24 appointment from in-person to virtual Shannen Smith RN November 30, 2023 12:[address] Queen, patient is asking if the follow up appointment to review lab results on 01/07/24 needs to be in person or can it be a virtual appointment? Thank you, Shannen Smith RN November 30, 2023 11:06 AM Case is calling Marcial Queen MD today to see if it was ok to change the 01/07/24 appt that you scheduled for her with Dr. Queen to a Video Appointment. Please return call. Patient has been identified by name and birthdate. Duration of symptoms: N/A Person calling: self Call patient at: at home [phone] (home) [phone] (work) [phone] (cell) Was an appointment scheduled: Yes: Date/Time: 01/07/24:40 pm Closing statement: Symptom Call: Thank you for calling [facility], your call is very important. A nurse will call in approximately 2-4 hours during business hours. If this is an emergency, please contact 911. Jaclyn Olivares documented in this encounter [facility] 11-30-[address] Queen, patient is asking if the follow up appointment to review lab results on 01/07/24 needs to be in person or can it be a virtual appointment? Thank you, Shannen mSith RN November 30, 2023 11:06 AM [facility] 11-30-2023 Telephone encounter Note Case is calling Marcial Queen MD today to see if it was ok to change the 01/07/24 appt that you scheduled for her with Dr. Queen to a Video Appointment. Please return call. Patient has been identified by name and birthdate. Duration of symptoms: N/A Person calling: self Call patient at: at home [phone] (home) [phone] (work) [phone] (cell) Was an appointment scheduled: Yes: Date/Time: 01/07/24:40 pm Closing statement: Symptom Call: Thank you for calling [facility], your call is very important. A nurse will call in approximately 2-4 hours during business hours. If this is an emergency, please contact 911. Jaclyn Olivares [facility] 11-27-2023 Telephone encounter Note Can someone please offer pt the hold spot for December 03 at 8:[address] Crain's request? Thank you Estrellita Montemayor RN [facility] 11-27-2023 Miscellaneous Notes Can someone please offer pt the hold spot for December 03 at 8:[address] Crain's request? Thank you Estrellita Montemayor RN documented in this encounter [facility] 11-26-2023 Instructions Marcial Queen MD - 11/26/2023 2:10 PM EDT Please complete blood work Read over information about positive GUILLE; can be seen in up to 30% general population monitor for joint swelling, photosensitive rashes, recurrent oral ulcerations, raynaud's phenomenon, worsening dry eyes, fevers, dry mouth, swollen glands -physical therapy referral placed call [phone] to schedule I recommend Dr Bernstein -tylenol arthritis strength 650mg tablet as needed (do not exceed 2500-3000mg per 24 hours) -as needed use of NSAID/meloxicam however caution for risks of stomach ulcers, gastritis, kidney injury, heart disease -topicals such as voltaren gel, capsaicin cream, asper cream (topical lidocaine/menthol), paraffin wax bath, salonpas patches, icy hot, aleve x spray, biofreeze, arnica gel documented in this encounter [facility] 11-26-2023 History of Present illness Narrative Images from the original note were not included. Rheumatology History & Physical Patient name: Case Abdi Requesting provider: No att. providers found SUBJECTIVE History of Present Illness: Ms. Case Abdi is a 33 year old female who has a past medical history of Anemia, obesity, ANTHONY, migraines, former smoker, IBS, Bradycardia, COVID, Generalized anxiety disorder, Hypothyroidism, and Migraines. who presents for rheumatologic evaluation. PSHx: She has a past surgical history that includes tonsillectomy & adenoidectomy <age 12; Colonoscopy Screening; egd w/o brsh spec varicies inj; delivery only; past surgical history of; and blood patch. Allergies: She has No Known Allergies. Current Meds: mobic, zenpep, hyoscyamine sr, esomeprazole, topiramate, nurtec odt, multivit with calcium,iron,min, ascorbic acid/vitamin e/biotin, phentermine hcl, sertraline, cholecalciferol (vitamin d3), bupropion xl, magnesium, iv contrast, and enteric contrast Family History: family history includes Anesthesia Problems in her mother; Heart Attack in her paternal great-grandparent; Heart disease in her paternal great-grandparent; No Ocular Disease in her father, maternal grandfather, maternal grandmother, mother, paternal grandfather, and paternal grandmother; Parkinson s Disease in her father; Thyroid in her mother and sister. Social History: She reports that she quit smoking about 13 months ago. Her smoking use included cigarettes. She has never used smokeless tobacco. She reports current alcohol use. She reports current drug use. Drug: Marijuana. Labs: Latest Ref Rng & Units 11/13/2023 07/10/202311/12/2022 CBC WBC 3.70 - 11.00 k/uL 7.70 7.97 5.05 Hemoglobin 11.5 - 15.5 g/dL 15.9 14.4 14.6 Hematocrit 36.0 - 46.0 % 46.1 42.0 41.3 Platelet Count 150 - 400 k/uL 292 267 232 Abs Neut (ANC) 1.45 - 7.50 k/uL 5.43 5.76 3.61 Abs Lymph 1.00 - 4.00 k/uL 1.68 1.59 1.00 Latest Ref Rng & Units 11/13/2023 07/10/2023 01/30/2023 11/12/2022 CMP Sodium 136 - 144 mmol/L 137 137 138 140 Potassium 3.7 - 5.1 mmol/L 4.2 4.0 4.5 4.1 Chloride 98 - 107 mmol/L 102 101 102 106 CO2 22 - 30 mmol/L 23 23 27 21 Glucose 74 - 99 mg/dL 99 81 90 95 BUN 7 - 21 mg/dL 16 16 20 15 Creatinine 0.58 - 0.96 mg/dL 0.93 0.99 0.93 1.00 Calcium 8.5 - 10.2 mg/dL 9.9 9.8 9.7 9.2 AST 13 - 35 U/L 18 19 17 ALT 7 - 38 U/L 26 20 15 Alkaline Phosphatase 34 - 123 U/L 120 102 92 Latest Ref Rng & Units 07/10/2023 12/30/2022 ESR, WSR WSR 0 - 20 mm/hr 5 10 Latest Ref Rng & Units 07/10/2023 12/30/2022 CRP CRP <0.9 mg/dL <0.3 <0.3 Latest Ref Rng & Units 11/12/2023 Urinalysis PROTEIN UA (POCT) Negative mg/dL Negative Labs: 11/08: sCr/LFT WNL Hgb 15.9; GUILLE screen+ positive anti-smooth muscle antibody 07/11: CRP WNL ESR WNL RHEUMATOLOGY EVALUATION 11/26/2023 Patient seen and examined - self-referral; per consult Dr Crain (GI) TODAY: -found to have recent +GUILLE +ASMA tests Per last GI evaluation 11/13/2023 Dr Crain: Was given diagnosis of IBS in the past per GI note HPI: Case Abdi, 33 year old female, followup for abdominal bloating and reflux. Over the past few years she has increased bloating, indigestion, and GERD. Symptoms have been worsening despite treatment. Previously following with GI in [place] treated for GERD and IBS-D. Over the years has failed several medications including pantoprazole, Carafate, dicyclomine, probiotics, Ibgard, metronidazole. Nexium helps GERD and Levbid helps pain but still with chronic symptoms. She is concerned about an autoimmune condition given generalized body aches, fatigue, and joint discomfort. Labs and imaging has been negative thus far including celiac serology, RUQ US and CCK HIDA. Last EGD and colonoscopy were 3 yrs ago. Negative family history Today: initial rheumatology evaluation; per patient she undergoes Flare ups of unwellness -stomach pain Will be going for CT A/P with contrast next week Was on phentramine to piper helper weight loss but this was stopped after seeing GI(adipex) - patient unable to tell if this has made a difference; recently started digestive enzymes with GI Noticing worsening polyarthralgia, polymyalgia - long standing h/o neck and back pain which she feels is worse after child Using meloxicam, notes that it helps her feel better; had a small injury at home w/ her R knee; saw outside provider at [facility]; started mobic; using voltaren gel Notes she lost 60lb but unfortunately gained it back over the past year Gets myalgias of upper arms that go into her elbows No h/o joint swelling No h/o raynaud's Notes sometimes gets ?eczema like rash over neck no h/o photosensitive rashes Sometimes gets inspiratory chest pain no h/o pericarditis/pleurisy No h/o oral ulcers; sometimes gets nasal sore maybe more when I have a runny nose One first trimester miscarriage No sicca symptoms Has dry eyes only a/w use of contacts Rheumatologic ROS +fatigue (+) in bold; all rest are negative/denies history of: Chest pain, shortness of breath, history of pleural effusion or pericarditis, oral/nasal ulcers, photosensitivity, rash, history of DVT/PE/&or miscarriages - one first trimester, renal disease, seizures, dry eyes, dry mouth, cervical lymphadenopathy or parotid gland swelling, raynaud's phenomenon, alopecia, psoriasis, history of iritis/uveitis or scleritis, nail pitting, dactylitis, history of sacroiliitis or inflammatory bowel disease, arm weakness in raising arms above head, leg weakness in standing up from a seated position, skin tightening, dysphagia, changes in vision, scalp tenderness, jaw claudication, stiffness in shoulders/hip girdle, auricular or nasal chondritis Answers submitted by the patient for this visit: Review of Systems Rheumatology (Submitted on 11/24/2023) Fever : No Recent unintentional weight change: Yes Eye pain: No Eye redness: No Vision Disturbance: Yes Eye Dryness: Yes Nosebleeds: No Sores in your mouth: No Trouble Swallowing: No Dry Mouth: No Chest pain: No Leg Swelling: No A cough: No Shortness of breath: No Pain with breathing: Yes Heartburn: Yes Abdominal pain: Yes Diarrhea: Yes Black tarry stools: No Blood in urine: Yes Pain or burning with urination: No Joint pain or stiffness: Yes Muscle weakness: Yes Muscle aches: Yes Joint swelling: No Morning Stiffness in Joints: Yes A rash: No Skin Color Changes: No Hair Loss: Yes Nail Changes: No Headaches: Yes Numbness: Yes Memory Loss: Yes Swollen Glands: No OBJECTIVE 11/26/23 1310 BP: 146/86 BP Site: Left Arm BP Position: Sitting BP Cuff Size: Regular Adult Pulse: 67 Temp: (!) 35.9 C (96.7 F) TempSrc: Skin Weight: 128.1 kg (282 lb 6.6 oz) General: No acute distress. Eye: Pupils are equal, round and reactive to light, Extraocular movements are intact, Normal conjunctiva. HENT: Oral mucosa is moist, no oral ulcerations, no areas of alopecia appreciated Neck: Supple, Non-tender. No lymphadenopathy Respiratory: Lungs are clear to auscultation, Respirations are non-labored, Breath sounds are equal. Cardiovascular: Normal rate, Regular rhythm. Gastrointestinal: soft, non-tender, non-distended. Musculoskeletal: no synovitis, muscle strength normal 5/5 BL UE/LE Integumentary: Warm, Dry. No rash; mild erythema overlying MCP joints R>L hand Neurologic: Alert, Oriented. Psychiatric: Cooperative. IMPRESSION & RECOMMENDATIONS Ms. Case Abdi is a 33 year old female who has a past medical history of Anemia, obesity, ANTHONY, migraines, former smoker, IBS, Bradycardia, COVID, Generalized anxiety disorder, Hypothyroidism, and Migraines. who presents for rheumatologic evaluation. 11/08: sCr/LFT WNL Hgb 15.9; GUILLE screen+ positive anti-smooth muscle antibody 07/11: CRP WNL ESR WNL Pleasant 33 y/o F with medical history as above - referred to rheumatology in setting of +GUILLE, polymyalgia/polyarthralgia. She notes a family history of fibromyalgia. Patient follows with GI for abdominal pain, bloating, GERD (previously diagnosed with IBS with previous GI, last EGD/colonoscopy 3 years ago unremarkable). Given polymyalgia (upper extremities), body aches and fatigue, joint discomfort (shoulders, elbows, knees) a workup from GI was initiated which yielded +GUILLE (direct) and +ASMA antibody (recent LFTs normal). Explained to patient that ASMA is typically a/w autoimmune hepatitis (unlikely in setting of normal LFT; will defer to GI). ASMA is typically almost always associated with +GUILLE. ROS as above from rheumatologic perspective widely negative (no h/o recurrent photosensitive rashes, raynaud's, oral ulcers, fevers, LAD, joint swelling/redness/warmth/inflammatory arthritis). ROS +one first trimester miscarriage +nasal sore; notes xerophthalmia only in-conjunction with use of contacts. Recommendations: Would defer to GI regarding clinical correlation of anti smooth muscle ab (given its correlation with autoimmune hepatitis) No specific sx to suggest GUILLE related CTD: +fatigue +polymyalgia +polyarthralgia: explained to patient that fibromyalgia is a dx of exclusion Follows with GI for abdominal pain - due for CT/AP Referral for PT, R knee discomfort, suspect mechanical etiology Referral to integrative medicine chronic fatigue Will continue eval for background rheumatologic disorder; given h/o miscarriage will follow up antiphospholipid ab's. I spent a total of 60 minutes on the date of the service which included preparing to see the patient, [id number] patient care, completing clinical documentation, obtaining and/or reviewing separately obtained history, performing a medically appropriate examination, counseling and educating the patient/family/caregiver, ordering medications, tests, or procedures, communicating results to the patient/family/caregiver and care coordination (not separately reported). Ambreesh Bernice, MD Rheumatology Staff documented in this encounter [facility] 11-17-2023 Telephone encounter Note Left voice message regarding results and advised to call office with any further questions. Estrellita Montemayor RN [facility] 11-17-2023 Telephone encounter Note ----- Message from Heladio Crain Jr., DO sent at 11/16/2023 8:28 PM EDT ----- Autoimmune markers positive. Referral to rheumatology for autoimmune disease, arthralgias / myalgias. Heladio Crain Jr., DO [facility] 11-17-2023 Miscellaneous Notes Left voice message regarding results and advised to call office with any further questions. Estrellita Montemayor RN ----- Message from Heladio Crain Jr., DO sent at 11/16/2023 8:28 PM EDT ----- Autoimmune markers positive. Referral to rheumatology for autoimmune disease, arthralgias / myalgias. Heladio Crain Jr., DO documented in this encounter [facility] 11-13-2023 Instructions Heladio Crain Jr., DO - 11/13/2023 9:49 AM EDT Check labs Check CT scan Start Zenpep with meals Consider stopping Adipex documented in this encounter [facility] 11-13-2023 History of Present illness Narrative CC: abd pain HPI: Case Abdi, 33 year old female, followup for abdominal bloating and reflux. Over the past few years she has increased bloating, indigestion, and GERD. Symptoms have been worsening despite treatment. Previously following with GI in [place] treated for GERD and IBS-D. Over the years has failed several medications including pantoprazole, Carafate, dicyclomine, probiotics, Ibgard, metronidazole. Nexium helps GERD and Levbid helps pain but still with chronic symptoms. She is concerned about an autoimmune condition given generalized body aches, fatigue, and joint discomfort. Labs and imaging has been negative thus far including celiac serology, RUQ US and CCK HIDA. Last EGD and colonoscopy were 3 yrs ago. Negative family history. Past GI workup 07/10/23 Last OV notes per Dr. Crain as follows: Case Abdi, 32 year old female, presents in the office today for abdominal bloating and reflux. Over the past few years she has increased bloating, indigestion, and GERD. She has been treated for GERD and IBS-D by gastroenterology in [place]. Failed several medications including pantoprazole, Carafate, dicyclomine, probiotics, Ibgard. Nexium helps GERD but still occasional breakthrough and bloating remains an issue. Food makes symptoms worse but no particular culprits. RUQ US and CCK HIDA were unremarkable. Last EGD and colonoscopy were 2 yrs ago. Negative family history. 01/13/23 HIDA scan was done 1. Gallbladder is visualized. Patent cystic and common bile ducts. No scintigraphic evidence of acute cholecystitis. 2. Normal gallbladder ejection fraction. 10/09/22 US Gallbladder NEGATIVE ULTRASOUND OF THE GALLBLADDER AND LIVER. Component Ref Range & Units 3 mo ago H. pylori IgG, Qualitative Negative Negative Latest Ref Rng 07/10/2023 Transglutaminase IgA Abs <4 U/mL <2 Transglutaminase IgA Abs Interpretation Negative Negative Interpretation (Celiac Screen) No serological evidence of celiac disease, however, if celiac disease is clinically suspected and patient is not on gluten-free diet, histological diagnosis may be considered. HLA testing may help with risk assessment. Gliadin Ab, IgA <20 Units 3 Gliad Deamidated IgA Qual Negative, Test not Indicated Negative IgA 70 - 400 mg/dL 223 Component Latest Ref Rng & Units 12/30/2022 Transglutaminase IgA Abs <4 U/mL <2 Transglutaminase IgA Abs Interpretation Negative Negative Interpretation (Celiac Screen) No serological evidence of celiac disease, however, if celiac disease is clinically suspected and patient is not on gluten-free diet, histological diagnosis may be considered. HLA testing may help with risk assessment. Gliadin Ab, IgA <20 Units 3 Gliad Deamidated IgA Qual Negative, Test not Indicated Negative IgA 70 - 400 mg/dL 206 Latest Ref Rng 12/30/2022 01/30/2023 07/10/2023 07/31/2023 WBC 3.70 - 11.00 k/uL 7.97 RBC 3.90 - 5.20 m/uL 4.75 Hemoglobin 11.5 - 15.5 g/dL 14.4 Hematocrit 36.0 - 46.0 % 42.0 MCV 80.0 - 100.0 fL 88.4 MCH 26.0 - 34.0 pg 30.3 MCHC 30.5 - 36.0 g/dL 34.3 RDW-CV 11.5 - 15.0 % 12.0 Platelet Count 150 - 400 k/uL 267 MPV 9.0 - 12.7 fL 9.6 Neut% % 72.4 Abs Neut (ANC) 1.45 - 7.50 k/uL 5.76 Lymph% % 19.9 Abs Lymph 1.00 - 4.00 k/uL 1.59 [place]% % 6.0 Abs [place] <0.87 k/uL 0.48 Eosin% % 1.1 Abs Eosin <0.46 k/uL 0.09 Baso% % 0.5 Abs Baso <0.11 k/uL 0.04 Immature Gran % % 0.1 IMMATURE GRANS (ABS) <0.10 k/uL <0.03 NRBC /100 WBC 0.0 Absolute nRBC <0.01 k/uL <0.01 DTYPE Auto Protein, Total 6.3 - 8.0 g/dL 7.6 Albumin 3.9 - 4.9 g/dL 4.5 Calcium 8.5 - 10.2 mg/dL 9.7 9.8 Bilirubin, Total 0.2 - 1.3 mg/dL 0.6 Alkaline Phosphatase 34 - 123 U/L 102 AST 13 - 35 U/L 19 ALT 7 - 38 U/L 20 Glucose 74 - 99 mg/dL 90 81 BUN 7 - 21 mg/dL 20 16 Creatinine 0.58 - 0.96 mg/dL 0.93 0.99 (H) Sodium 136 - 144 mmol/L 138 137 Potassium 3.7 - 5.1 mmol/L 4.5 4.0 Chloride 97 - 105 mmol/L 102 101 CO2 22 - 30 mmol/L 27 23 Anion Gap 9 - 18 mmol/L 9 13 eGFR >=60 mL/min/1.73m 84 78 Cholesterol, Total <200 mg/dL 171 Triglyceride <150 mg/dL 63 HDL Cholesterol >39 mg/dL 47 Non HDL Cholesterol <130 mg/dL 124 Fasting Time hrs 12 VLDL Cholesterol <30 mg/dL 13 TC:HDL Ratio <5.10 3.64 LDL Cholesterol <100 mg/dL 111 (H) LDL:HDL Ratio <2.54 2.36 WSR 0 - 20 mm/hr 10 5 CRP <0.9 mg/dL <0.3 <0.3 TSH 0.270 - 4.200 mIU/L 2.160 Free T4 0.9 - 1.7 ng/dL 1.1 Vitamin D 25 Hydroxy 31.0 - 80.0 ng/mL 62.8 PAST MEDICAL HISTORY Diagnosis Date Anemia Arthritis Bradycardia COVID Generalized anxiety disorder Hypothyroidism Migraines PAST SURGICAL HISTORY Procedure Laterality Date BLOOD PATCH after last / epidural - used own blood DELIVERY ONLY x 3 COLONOSCOPY SCREENING EGD W/O [facility] SPEC VARICIES INJ PAST SURGICAL HISTORY OF laparoscopy x 2 TONSILLECTOMY & ADENOIDECTOMY <AGE 12 Current Outpatient Medications on File Prior to Visit Medication Sig hyoscyamine SR (LEVBID) 0.375 mg 12 hr tablet Take 1 tablet by mouth two times a day. esomeprazole (NEXIUM) 40 mg capsule Take 1 capsule by mouth two times a day before meals. topiramate (TOPAMAX) 100 mg tablet Take 1 tablet by mouth daily at bedtime. rimegepant (NURTEC ODT) 75 mg disintegrating tablet Take 1 dissolvable tablet by mouth at migraine onset. May use once per day as needed. multivit with calcium,iron,min (WOMEN'S MULTIPLE VITAMINS ORAL) Take by mouth once daily. ascorbic acid/vitamin E/biotin (HAIR, SKIN, NAILS WITH BIOTIN ORAL) Take by mouth. Phentermine HCl 37.5 mg tablet Take 1 tablet by mouth every morning (before breakfast) for 30 days. lisinopril (ZESTRIL) 5 mg tablet (Patient not taking: Reported on 07/17/2023) esomeprazole (NEXIUM) 40 mg capsule Take 1 capsule by mouth once daily. sertraline (ZOLOFT) 25 mg tablet Take 25 mg by mouth. cholecalciferol, vitamin D3, (VITAMIN D3 ORAL) Take by mouth. buPROPion XL (WELLBUTRIN XL) 300 mg 24 hr tablet Take 300 mg by mouth once daily. MAGNESIUM ORAL Take by mouth. Current Facility-Administered Medications on File Prior to Visit Medication acetylcholine 10% solution - [facility] Allergies: No Known Allergies Review of Systems Constitutional: Positive for fatigue. Negative for chills and fever. HENT: Negative for hearing loss, nosebleeds, tinnitus and trouble swallowing. Eyes: Negative for visual disturbance. Respiratory: Negative for cough, shortness of breath and wheezing. Cardiovascular: Negative for chest pain and palpitations. Gastrointestinal: Positive for abdominal pain, diarrhea and nausea. Negative for abdominal distention, blood in stool, constipation and vomiting. Endocrine: Negative for polyphagia. Genitourinary: Negative for dysuria, frequency and hematuria. Musculoskeletal: Positive for myalgias. Negative for arthralgias and joint swelling. Skin: Negative for pallor and rash. Neurological: Positive for headaches. Negative for dizziness, tremors, seizures and syncope. Hematological: Does not bruise/bleed easily. BP 112/78 Pulse 80 Temp (!) 35.9 C (96.6 F) (Temporal) Ht 157.5 cm (5' 2 ) Wt 124.7 kg (274 lb 14.6 oz) LMP (LMP Unknown) SpO2 99% BMI 50.28 kg/m Physical Exam Constitutional: General: She is not in acute distress. Appearance: She is morbidly obese. HENT: Mouth/Throat: Pharynx: Oropharynx is clear. Eyes: Conjunctiva/sclera: Conjunctivae normal. Cardiovascular: Rate and Rhythm: Normal rate and regular rhythm. Pulmonary: Effort: Pulmonary effort is normal. Breath sounds: Normal breath sounds. Abdominal: General: Bowel sounds are normal. There is no distension. Palpations: Abdomen is soft. Tenderness: There is no abdominal tenderness. There is no guarding or rebound. Musculoskeletal: General: No swelling. Skin: General: Skin is warm and dry. Coloration: Skin is not jaundiced. Neurological: Mental Status: She is alert. Mental status is at baseline. ASSESSMENT/PLAN: 33 y/o female with abd pain, diarrhea, GERD, and myalgias. Abd pain etiology is not entirely clear, question IBS but poor response to therapy and episodes of pain have become more frequent. At this time will investigate further with CT scan. Will also check GUILLE for concern of autoimmune disease. Stop Adipex which may be worsening symptoms. Maintain Nexium for GERD. Start digestive enzymes. Followup in 3 months. 1. Irritable bowel syndrome with diarrhea - ICD9: 564.1, ICD10: K58.0 (primary diagnosis) - maintain Levbid - start Zenpep 2. Generalized abdominal pain - ICD9: 789.07, ICD10: R10.84 - CT ABD/PEL W IVCON - maintain Zenpep - stop Adipex 3. Gastroesophageal reflux disease with esophagitis without hemorrhage - ICD9: 530.81, 530.10, ICD10: K21.00 - Nexium 4. Autoimmune disease (HCC) - ICD9: 279.49, ICD10: M35.9 - GUILLE BLOOD - SMOOTH MUSCLE AB SCR - COMPREHENSIVE METABOLIC PANEL - COMPLETE BLOOD COUNT AND DIFFERENTIAL Heladio Crain Jr. documented in this encounter [facility] 11-12-2023 Instructions Naz Whalen APRN.[facility] - 11/12/2023 11:37 AM EDT Images from the original note were not included. Urinary Problem-When to Seek Help? Symptoms of a urinary problem may lead to a bladder infection. Women are at greater risk of a urinary tract infection than are men. Most urinary tract infections in women are caused by bacteria and involve the lower urinary tract including the bladder and urethra. Symptoms: Pain or burning when passing urine, urgency, frequency, blood in the urine, difficult emptying your bladder, and lower abdominal fullness or pressure. Common Causes: Sexual intercourse, menopause, constipation, uncontrolled diabetes, dehydration and feminine products such as tampons, and kidney stones. When to Get Help: Seek medical attention if you get frequent bladder infections, urinary concerns such as leakage, blood in the urine or frequent need to urinate. You may be recommended to get help from a specialist, such as a urologist. Diagnosis & Treatment: Lab testing may include: urinalysis, and urine culture that can be collected in the lab or walk-in clinic. Most bladder infections can easily be treated. A physician, nurse practitioner or physician construction project assistant may treat with a short course of an antibiotic. Delaying treatment can lead to worsening symptoms, like a kidney infection. Self-Care: Avoid a full bladder, bubble baths, bath oils, food and beverages that may irritate the bladder such as caffeine. Avoid spermicide foam and diaphragms Void before and after sexual intercourse Wipe front to back after using the bathroom. Stay hydrated Stop Smoking Follow-up Care: Follow up testing is not needed in healthy young women if symptoms resolve. documented in this encounter [facility] 11-12-2023 History of Present illness Narrative This note was created using [employer]. Subjective Case Abdi is a 33 year old female. This 33 year old female presents to [facility] with bladder pressure, low back pain, seen by ortho at [facility], had xrays today, knee and hip pain on right being followed. Pt denies N/V/D. Pt in NAD. The history is provided by the patient. Review of Systems Constitutional: Negative for activity change, appetite change, chills, diaphoresis, fatigue and fever. Respiratory: Negative for shortness of breath. Cardiovascular: Negative for chest pain. Gastrointestinal: Positive for abdominal pain. Negative for diarrhea, nausea and vomiting. Bladder pressure Genitourinary: Positive for urgency. Negative for decreased urine volume. Musculoskeletal: Negative for arthralgias, myalgias, neck pain and neck stiffness. Skin: Negative. Allergic/Immunologic: Negative for immunocompromised state. Neurological: Negative for dizziness, light-headedness and headaches. Hematological: Negative. Psychiatric/Behavioral: Negative. Objective BP 126/82 Pulse 77 Temp 36.4 C (97.6 F) (Temporal) LMP (LMP Unknown) SpO2 100% PAST MEDICAL HISTORY Diagnosis Date Anemia Arthritis Bradycardia COVID Generalized anxiety disorder Hypothyroidism Migraines Current Outpatient Medications on File Prior to Visit Medication Sig hyoscyamine SR (LEVBID) 0.375 mg 12 hr tablet TAKE 1 TABLET BY MOUTH TWICE A DAY esomeprazole (NEXIUM) 40 mg capsule Take 1 capsule by mouth two times a day before meals. topiramate (TOPAMAX) 100 mg tablet Take 1 tablet by mouth daily at bedtime. rimegepant (NURTEC ODT) 75 mg disintegrating tablet Take 1 dissolvable tablet by mouth at migraine onset. May use once per day as needed. multivit with calcium,iron,min (WOMEN'S MULTIPLE VITAMINS ORAL) Take by mouth once daily. ascorbic acid/vitamin E/biotin (HAIR, SKIN, NAILS WITH BIOTIN ORAL) Take by mouth. Phentermine HCl 37.5 mg tablet Take 1 tablet by mouth every morning (before breakfast) for 30 days. lisinopril (ZESTRIL) 5 mg tablet (Patient not taking: Reported on 07/17/2023) esomeprazole (NEXIUM) 40 mg capsule Take 1 capsule by mouth once daily. sertraline (ZOLOFT) 25 mg tablet Take 25 mg by mouth. cholecalciferol, vitamin D3, (VITAMIN D3 ORAL) Take by mouth. buPROPion XL (WELLBUTRIN XL) 300 mg 24 hr tablet Take 300 mg by mouth once daily. MAGNESIUM ORAL Take by mouth. Current Facility-Administered Medications on File Prior to Visit Medication acetylcholine 10% solution - [facility] Physical Exam Vitals and nursing note reviewed. Constitutional: General: She is not in acute distress. Appearance: Normal appearance. She is not ill-appearing, toxic-appearing or diaphoretic. HENT: Head: Normocephalic and atraumatic. Cardiovascular: Rate and Rhythm: Normal rate and regular rhythm. Heart sounds: Normal heart sounds. Pulmonary: Effort: Pulmonary effort is normal. Breath sounds: Normal breath sounds. Abdominal: Palpations: Abdomen is soft. Tenderness: There is no right CVA tenderness or left CVA tenderness. Musculoskeletal: General: Normal range of motion. Cervical back: Normal range of motion and neck supple. Skin: General: Skin is warm. Neurological: Mental Status: She is alert and oriented to person, place, and time. Psychiatric: Mood and Affect: Mood normal. Behavior: Behavior normal. ASSESSMENT/PLAN: 1. Sensation of pressure in bladder area - ICD9: 596.89, ICD10: R39.89 No infection on clinic testing as discussed Will call and treat based on urine culture Hydrate Follow up with [facility] as discussed- pt established and with appt Review handout provided Stretches for low back pain as discussed - URINE CULTURE - UA DIP, URINE (POC) Naz Whalen APRN.SENIOR PLANNING MANAGER documented in this encounter [facility] 10-29-2023 Telephone encounter Note PA started in [facility]. Aliya Escalona MA October 29, 2023 3:09 PM [facility] 10-29-2023 Miscellaneous Notes PA started in [facility]. Aliya Escalona MA October 29, 2023 3:09 PM Images from the original note were not included. Heladio Crain Jr., DO Estrellita Montemayor RN; [facility] [place] (7:34 AM) DH Please proceed with prior auth as previously failed dicyclomine. Heladio Crain Jr., Aliya Huynh MA Hykes, David L Jr., DO2 days ago AB Prior auth form asking if patient can be treated with one of the formulary alteratives. Only provides dicyclomine as an alternative. Aliya Escalona MA October 26, 2023 2:54 PM Stormy, can you please do the PA for Levbid for this pt? She did not do well with Levsin and Dr. Crain is thinking the Levbid may be more beneficial. Thank you Estrellita Montemayor RN 07/10/23 last OV notes ASSESSMENT/PLAN: 32 y/o female with GERD, abd bloating. GERD with variable control, increase Nexium to twice daily. Abd bloating appears related to IBS but consider h.pylori, celiac, EPI, and SIBO. Check labs, maintain Levsin prn. Patient's request for medication is as follows: Requested Prescriptions Pending Prescriptions Disp Refills esomeprazole (NEXIUM) 40 mg capsule 60 capsule 5 Sig: Take 1 capsule by mouth two times a day before meals. Prescription(s) as above. Please process accordingly. Estrellita Montemayor RN documented in this encounter [facility] 10-29-2023 Instructions Michael Hitchcock APRN.[facility] - 10/29/2023 1:27 PM EDT Instruction after Botox injection: - If you have any pain or swelling use ice, 20 min on and 20 min off. Do not rub or massage the area for 24 hrs. - If you have any neck stiffness, you may use heat and do stretching exercises. - This should improve over the next 5 days. - If it does not, call our office at [phone] for further instructions. documented in this encounter [facility] 10-29-2023 History of Present illness Narrative Images from the original note were not included. Previously got Botox done at outside facility, transferring care to [facility] New Onabotulinum Toxin A (BotoxTM) for Migraine Indication: Chronic Intractable Migraine Treatment #: 1 Referral Expiration: 04/04/2024 Number of moderate-severe migraine days/month: 2 Number of mild migraine days/month: 28 Number of headache free days/month: 0 (0 headache-free hours) The patient has been assessed for disorders which could contribute to breathing or swallowing difficulty, and there is no contraindication with PREEMPT Botox. There is no documented allergic reaction/hypersensitivity to any botulinum toxin and there is no active infection at proposed injection site. HEADACHE SCORES: 08/13/2023 10/28/2023 Headache Questions ID Migraine Screener: 2 (Positive) ER visits in the last year: 2 Hospital stays in the last year: 0 Limited ADLs in the last month: 3 10 Days missed from work or school in the last month: 1 1 Days headache pain free in the last month: 0 0 Days per month with ALL of the following symptoms - decreased productivity, light sensitivity and nausea: 7 2 Initial improvement of headache after botox injection at last visit: Not applicable, I did not have a botox injection at my last visit PRN medication usage in the last month: 20 10 Patient impression of improvement since last visit: Not applicable, this is my first visit 08/13/2023 10/28/2023 HIT-6 HIT-6 64 (Severe impact) 61 (Severe impact) 08/13/2023 10/28/2023 NAYELI - 2/7 SCORES NAYELI-2 Score 2 4 NAYELI-7 Score 14 08/13/2023 10/28/2023 Migraine Specific QOL - Higher scores indicate better HRQL Role Function-Restrictive Transformed Score (range: 0-100) 45.71 60 Role Function-Preventive Transformed Score (range: 0-100) 65 80 Emotional Function Transformed Score (range: 0-100) 40 80 10/28/2023 08/13/2023 07/06/2023 PHQ-9 Score 10 9 13 BP 127/88 (BP Site: Right Arm, BP Position: Sitting, BP Cuff Size: Large Adult) Pulse 66 LMP (LMP Unknown) Patient name: Case Abdi : 1990 ALLERGIES No Known Allergies UNIVERSAL PROTOCOL / SAFETY CHECKLIST Procedure: Onabotulinum toxin A for migraine Informed Consent Consent Obtained: Written Steele Protocol A moment to CARE was completed SIGN IN Personnel directly involved with the procedure wore the appropriate PPE Special Equipment: N/A Patient/Surrogate Stated/Verified: Patient name, Date of , Relevant allergies and Intended procedure TIME OUT Intended patient and procedure match the source document(s) Consent documented and matches the intended procedure No relevant labs, photos, and/or imaging studies were applicable for review. Correct side/site marked and visible. Medications required for procedure verified. No fire risk assessment and interventions applicable. No implant(s) inserted. SIGN OUT No specimen collected. No instruments, equipment or retained foreign bodies applicable. Post-procedure follow-up management communicated and Plan of Care Visit completed when applicable Written Consent Obtained: Written Injection Sites Left (Units) Left (Sites) Right (Units) Right (Sites) TOTAL (Units) Tester Armature Or Fields 5 1 5 1 10 Procerus Units: 5 Sites: 1 5 Frontalis 10 2 10 2 20 Temporalis optional follow the pain 20 10 4 2 20 10 4 2 60 Occipitalis optional follow the pain 15 10 3 2 15 10 3 2 50 Cervical PSP 10 2 10 2 20 Trapezius optional follow the pain 15 2.5 3 1 15 2.5 3 1 35 Total Units used: 200 Total Units wasted: 0 Prior Therapies Duration of Use Dose Side effect Other Therapies Nerve blocks occipital, supraorbital Analgesic Ketorolac (Toradol) Tramadol (Ultram) Anti-Convulsant Divalproex sodium (Depakote) Gabapentin (Neurontin) Topiramate (Topamax, Trokendi XL, Qudexy) Anti-Depressant and Antipsychotic Bupropion (Wellbutrin) Sertraline (Zoloft) Anti-Migraine Eletriptan (Relpax) Rizatriptan (Maxalt) Sumatriptan (Imitrex, Sumavel) Blood Pressure Lisinopril (Zestril) GEPANTS Rimegepant (Nurtec) Botulinum Toxin Onabotulinum Toxin A (Botox) Muscle Relaxer Cyclobenzaprine (Flexeril) Supplements Magnesium Other Medications Methylprednisolone (Medrol) Michael Hitchcock APRN.SENIOR PLANNING MANAGER documented in this encounter [facility] 10-28-2023 Telephone encounter Note Images from the original note were not included. Heladio Crain Jr., Estrellita Bal RN; [facility] [place] (7:34 AM) DH Please proceed with prior auth as previously failed dicyclomine. DO Pola Wheeler Jr., Alexandra, MA Hykes, David L Jr., DO2 days ago AB Prior auth form asking if patient can be treated with one of the formulary alteratives. Only provides dicyclomine as an alternative. Aliya Escalona MA October 26, 2023 2:54 PM [facility] 10-20-2023 Telephone encounter Note Stormy, can you please do the PA for Levbid for this pt? She did not do well with Levsin and Dr. Crain is thinking the Levbid may be more beneficial. Thank you Estrellita Montemayor RN [facility] 09-30-2023 Telephone encounter Note 07/10/23 last OV notes ASSESSMENT/PLAN: 32 y/o female with GERD, abd bloating. GERD with variable control, increase Nexium to twice daily. Abd bloating appears related to IBS but consider h.pylori, celiac, EPI, and SIBO. Check labs, maintain Levsin prn. Patient's request for medication is as follows: Requested Prescriptions Pending Prescriptions Disp Refills esomeprazole (NEXIUM) 40 mg capsule 60 capsule 5 Sig: Take 1 capsule by mouth two times a day before meals. Prescription(s) as above. Please process accordingly. Estrellita Montemayor RN [facility] 09-28-2023 Miscellaneous Notes === PHARMACY TEAM ==== ADDITIONAL INFORMATION NEEDED/REQUESTED Case Submitted: No Request Type: Provider Date of Service: 10/29/2023 Additional Information Needed: . Per Zeynep Arreola at [facility], there is a current auth on file with a different provider. Patient will need to call that provider and have them withdraw their request before we can proceed with ours. Request from Payor by: N/A Email Sent to: Telephone encounter to [facility] [place] Seamus Ambriz Requested Clinicals/Information Sent: N/A documented in this encounter [facility] 09-28-2023 Telephone encounter Note === PHARMACY TEAM ==== ADDITIONAL INFORMATION NEEDED/REQUESTED Case Submitted: No Request Type: Provider Date of Service: 10/29/2023 Additional Information Needed: . Per Zeynep Arreola at [facility], there is a current auth on file with a different provider. Patient will need to call that provider and have them withdraw their request before we can proceed with ours. Request from Payor by: N/A Email Sent to: Telephone encounter to [facility] [address] [facility] Requested Clinicals/Information Sent: N/A [facility] 08-26-2023 History of Present illness Narrative Episode Visit Count: 2 Therapist That Will Accept/Oversee The Plan Of Care: Mick Start of Care Date: 07/27/23 Onset Date: 01/26/23 REHABILITATION AND SPORTS THERAPY PHYSICAL THERAPY PROGRESS REPORT PLAN OF CARE UPDATE: Assessment: Case Abdi demonstrates difficulty with sitting, physical activities, and working. She has not progressed toward goals. Patient continues to present with impairments in stress management, symptom management, and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 thickened but not edematous Return to clinic: 6 months manifest refraction, then dilate NOCT Tierra Rojas, OD I spent 30-35 minutes in the visit, with more than 50% of the total [id number] time of the visit in counseling / coordination of care. I have confirmed and edited as necessary the relevant HPI, ophthalmic history, ROS, and the neuro exam findings as obtained by others. I have seen and examined this patient. I have discussed the case and the management of this patient's care with the Resident/Fellow, if applicable. I also have reviewed and agree with the assessment and plan as stated above and agree with all of its relevant components. Tierra Rojas, OD July 17, 2023 2:02 PM documented in this encounter [facility] 07-17-2023 Miscellaneous Notes Patient called regarding arrival of outside images. She was verified by name and birthdate at time of call. Imaging results reviewed and she was offered an in office appointment to review images. She declined stating that we can review imaging as at her follow-up appointment. No changes to current plan of care. She is scheduled to start physical therapy with [place] guided exercise program on 07/27/2023. All questions answered at time of call. documented in this encounter [facility] 07-16-2023 Miscellaneous Notes Patient returned call, please try to call her back again once message is received. Attempted to contact patient in regards to recently received MRI imaging. I was unable to make contact and voicemail message was left. documented in this encounter [facility] 07-10-2023 Heladio Yanez Jr., - 07/10/2023 2:59 PM EST Check labs Increase Nexium to twice daily documented in this encounter [facility] 07-10-2023 History of Present illness Narrative Patient presents with: Follow Up: GERD. HPI: Case Abdi, 32 year old female, presents in the office today for abdominal bloating and reflux. Over the past few years she has increased bloating, indigestion, and GERD. She has been treated for GERD and IBS-D by gastroenterology in [place]. Failed several medications including pantoprazole, Carafate, dicyclomine, probiotics, Ibgard. Nexium helps GERD but still occasional breakthrough and bloating remains an issue. Food makes symptoms worse but no particular culprits. RUQ US and CCK HIDA were unremarkable. Last EGD and colonoscopy were 2 yrs ago. Negative family history. Past GI workup 01/13/23 HIDA scan was done 1. Gallbladder is visualized. Patent cystic and common bile ducts. No scintigraphic evidence of acute cholecystitis. 2. Normal gallbladder ejection fraction. 12/30/22 Last OV notes as follows: 32 y/o female with intermittent RUQ pain, nausea, bloating, indigestion, and loose stools. Suspect related to GERD, IBS, and possibly gall bladder component. At this time check labs including celiac, setup for EGD and CCK HIDA, and start low FODmap diet. May consider digestive enzymes. Schedule EGD and HIDA scan Check labs 10/09/22 US Gallbladder NEGATIVE ULTRASOUND OF THE GALLBLADDER AND LIVER. Component Latest Ref Rng & Units 12/30/2022 Transglutaminase IgA Abs <4 U/mL <2 Transglutaminase IgA Abs Interpretation Negative Negative Interpretation (Celiac Screen) No serological evidence of celiac disease, however, if celiac disease is clinically suspected and patient is not on gluten-free diet, histological diagnosis may be considered. HLA testing may help with risk assessment. Gliadin Ab, IgA <20 Units 3 Gliad Deamidated IgA Qual Negative, Test not Indicated Negative IgA 70 - 400 mg/dL 206 Component Latest Ref Rng & Units 11/12/2022 12/30/2022 01/30/2023 WBC 3.70 - 11.00 k/uL 5.05 RBC 3.90 - 5.20 m/uL 4.65 Hemoglobin 11.5 - 15.5 g/dL 14.6 Hematocrit 36.0 - 46.0 % 41.3 MCV 80.0 - 100.0 fL 88.8 MCH 26.0 - 34.0 pg 31.4 MCHC 30.5 - 36.0 g/dL 35.4 RDW-CV 11.5 - 15.0 % 11.7 Platelet Count 150 - 400 k/uL 232 MPV 9.0 - 12.7 fL 9.7 Neut% % 71.5 Abs Neut (ANC) 1.45 - 7.50 k/uL 3.61 Lymph% % 19.8 Abs Lymph 1.00 - 4.00 k/uL 1.00 [place]% % 6.7 Abs [place] <0.87 k/uL 0.34 Eosin% % 1.2 Abs Eosin <0.46 k/uL 0.06 Baso% % 0.6 Abs Baso <0.11 k/uL 0.03 Immature Gran % % 0.2 IMMATURE GRANS (ABS) <0.10 k/uL <0.03 NRBC /100 WBC 0.0 Absolute nRBC <0.01 k/uL <0.01 DTYPE Auto Protein, Total 6.3 - 8.0 g/dL 7.2 Albumin 3.9 - 4.9 g/dL 4.4 Calcium 8.5 - 10.2 mg/dL 9.2 9.7 Bilirubin, Total 0.2 - 1.3 mg/dL 0.9 Alkaline Phosphatase 34 - 123 U/L 92 AST 13 - 35 U/L 17 ALT 7 - 38 U/L 15 Glucose 74 - 99 mg/dL 95 90 BUN 7 - 21 mg/dL 15 20 Creatinine 0.58 - 0.96 mg/dL 1.00 (H) 0.93 Sodium 136 - 144 mmol/L 140 138 Potassium 3.7 - 5.1 mmol/L 4.1 4.5 Chloride 97 - 105 mmol/L 106 (H) 102 CO2 22 - 30 mmol/L 21 (L) 27 Anion Gap 9 - 18 mmol/L 13 9 eGFR >=60 mL/min/1.73m 77 84 Hemoglobin A1C 4.3 - 5.6 % 4.5 Estimated Average Glucose mg/dL 82 CIRILO High Sensitivity <12 ng/L <6 d Dimer <500 ng/mL FEU <190 Magnesium 1.7 - 2.3 mg/dL 2.2 TSH 0.270 - 4.200 mIU/L 1.030 Free T3 2.3 - 4.1 pg/mL 3.6 Free T4 0.9 - 1.7 ng/dL 1.2 WSR 0 - 20 mm/hr 10 CRP <0.9 mg/dL <0.3 PAST MEDICAL HISTORY Diagnosis Date Anemia Arthritis Bradycardia COVID Generalized anxiety disorder Hypothyroidism Migraines PAST SURGICAL HISTORY Procedure Laterality Date BLOOD PATCH after last / epidural - used own blood DELIVERY ONLY x 3 [facility] PAST SURGICAL HISTORY OF laparoscopy x 2 TONSILLECTOMY & ADENOIDECTOMY <AGE 12 Current Outpatient Medications on File Prior to Visit Medication Sig hyoscyamine (LEVSIN) 0.125 mg tablet TAKE 1 TABLET BY MOUTH TWICE A DAY esomeprazole (NEXIUM) 40 mg capsule take 1 capsule by mouth every day sertraline (ZOLOFT) 25 mg tablet Take 25 mg by mouth. loratadine (CLARITIN) 10 mg tablet Take 10 mg by mouth. cholecalciferol, vitamin D3, (VITAMIN D3 ORAL) Take by mouth. buPROPion XL (WELLBUTRIN XL) 300 mg 24 hr tablet Take 300 mg by mouth once daily. MAGNESIUM ORAL Take by mouth. Current Facility-Administered Medications on File Prior to Visit Medication acetylcholine 10% solution - [facility] Allergies: No Known Allergies Review of Systems Constitutional: Negative for chills, fatigue and fever. HENT: Positive for voice change. Negative for hearing loss, nosebleeds, tinnitus and trouble swallowing. Eyes: Negative for visual disturbance. Respiratory: Negative for cough, shortness of breath and wheezing. Cardiovascular: Negative for chest pain and palpitations. Gastrointestinal: Positive for abdominal distention, abdominal pain and nausea. Negative for blood in stool, constipation, diarrhea and vomiting. Endocrine: Negative for polyphagia. Genitourinary: Negative for dysuria, frequency and hematuria. Musculoskeletal: Negative for arthralgias and joint swelling. Skin: Negative for pallor and rash. Neurological: Negative for dizziness, tremors, seizures, syncope and headaches. Hematological: Does not bruise/bleed easily. BP 121/82 Pulse 65 Temp 36.9 C (98.4 F) (Temporal) Ht 157.5 cm (5' 2 ) Wt 129.1 kg (284 lb 9.8 oz) LMP (LMP Unknown) SpO2 98% BMI 52.06 kg/m Physical Exam Constitutional: General: She is not in acute distress. HENT: Mouth/Throat: Pharynx: Oropharynx is clear. Eyes: Conjunctiva/sclera: Conjunctivae normal. Neck: Thyroid: No thyromegaly. Cardiovascular: Rate and Rhythm: Normal rate and regular rhythm. Pulmonary: Effort: Pulmonary effort is normal. Breath sounds: Normal breath sounds. Abdominal: General: Bowel sounds are normal. There is no distension. Palpations: Abdomen is soft. Tenderness: There is no abdominal tenderness. There is no guarding or rebound. Musculoskeletal: General: No swelling. Cervical back: Neck supple. Lymphadenopathy: Cervical: No cervical adenopathy. Skin: General: Skin is warm and dry. Coloration: Skin is not jaundiced. Neurological: Mental Status: She is alert. Mental status is at baseline. ASSESSMENT/PLAN: 32 y/o female with GERD, abd bloating. GERD with variable control, increase Nexium to twice daily. Abd bloating appears related to IBS but consider h.pylori, celiac, EPI, and SIBO. Check labs, maintain Levsin prn. Followup in 3 months. 1. Gastroesophageal reflux disease with esophagitis without hemorrhage - ICD9: 530.81, 530.10, ICD10: K21.00 (primary diagnosis) - C-REACTIVE PROTEIN (CRP) - SED RATE WESTERGREN - COMP METABOLIC PANEL - CELIAC SCREEN WITH REFLEX - CBC + DIFF - H PYLORI IGG AB - Nexium 2. Irritable bowel syndrome with both constipation and diarrhea - ICD9: 564.1, ICD10: K58.2 - C-REACTIVE PROTEIN (CRP) - SED RATE WESTERGREN - COMP METABOLIC PANEL - CELIAC SCREEN WITH REFLEX - CBC + DIFF - H PYLORI IGG AB - Levsin Heladio Crain Jr. documented in this encounter [facility] 07-08-2023 Instructions Joanie Gonzalez APRN.SENIOR PLANNING MANAGER - 07/08/2023 2:38 PM EST Images from the original note were not included. Chronic Neck Pain Overview: Neck pain is common. Approximately three out of four [place] adults will experience an episode of neck pain. Neck pain is also common after motor vehicle accidents ( whiplash ). The exact cause of neck pain is often not identified but most people recover with simple treatment in several weeks. Neck pain lasting longer than 12 weeks is called chronic . Serious causes of neck pain (cancer, fracture, infection) are rare and can be detected by a careful examination. Common causes of chronic neck pain, particularly arthritis, can be confirmed by x-rays. MRI or CT are not recommended in most people with neck pain unless significant trauma has occurred or when examination suggests the possibility of cancer or infection. An MRI or CT may be recommended if compression of the spinal cord is suspected based on the examination. Many times a specific structural explanation for the pain is not found but medical treatment can successfully improve symptoms and allow return to normal activities. In the absence of major structural deformity, surgery is unlikely to be helpful in relieving neck pain. Treatment: Neck pain without severe trauma is almost always successfully treated with conservative (non-surgical) measures. Frequent or constant use of a cervical collar is not recommended for most persons. Over the counter, non-prescription pain relievers such as acetaminophen (Tylenol) or medications such as ibuprofen or naproxen are recommended. Opioid or narcotic medications are not recommended for jail use. Other medications, particularly antidepressants, may be prescribed for pain relief, even in the absence of depression. Physical therapy is recommended and should include an active exercise program. Remaining as active as possible and resuming normal activities as soon as tolerated is best. Acupuncture or massage is helpful for some patients with chronic neck pain. Spinal epidural injections are not recommended for treatment of neck pain. Injection of spinal joints (facets) is rarely recommended treatment of arthritic neck pain. Follow Up See your health care provider if: You experience fever The pain progressively worsens The pain moves from your neck into your arm You notice difficulty using your hands (buttoning, picking up coins) You notice weakness in your arms or legs You experience problems with balance or walking You notice difficulty passing urine or controlling your bowels These are warning signs or red flags that require prompt, urgent medical attention. SIGNATURE: Joanie Gonzalez APRN.CNP PATIENT NAME: Case Abdi DATE: July 08, 2023 TIME: 2:36 PM documented in this encounter [facility] 07-08-2023 History of Present illness Narrative Images from the original note were not included. Spine Care Path Neck Pain - Chronic (> 12 weeks) Initial Exam SUBJECTIVE HISTORY OF PRESENT ILLNESS: Case Abdi is a 32 year old female who presents with a chief complaint of neck and upper back pain and is self-referred. Patient presents with neck and upper back pain x 1 year. Denies accident/injury She also reports that she has experienced headaches since she was in high school. She states that she experiences multiple types of headaches and was recently evaluated by neurology with referral to the headache department. 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 Recent smoker - quit 6 months ago She is right handed Pain localized to Bilateral lower neck/ upper thoracic - right worse than left Pain described as tightness, aching, spasm, sharp Radiation: Bilat upper arms to elbows - tightness / pulling Numbness/Tingling:Intermittently to all fingers She denies loss of bowel or bladder control, denies dexterity difficulties, denies imbalance. Pain rated 4/10 Pain worse with sitting/standing for greater than 10 minutes Pain improved with activity, heat, Biofreeze,ice Interventions: medications, chiropractor, PT, dry needling, heat, ice, dry needling Medications:Biofreeze, Wellbutrin , zofloft, tylenol, motrin, flexeril Physical Therapy: Possibly end of 2021 Treating Physicians: Dr Malhotra [facility] - [facility] Dr Karimi - Neurology Dr Crain - GI History of Spine Injections/Surgery: None Other Issues Addressed at the Visit Today: None. Precipitating Event: None PAIN EVALUATION 07/06/2023 1509 07/08/2023 1406 Pain Level: 4 4 worse standing/sitting for long periods Pain Location: Other: See Comment Neck radiates to both shoulders and upper arms Description: Contraction;Spasm;Stiffness;Throbbing; Tightness Tightness;Aching;Pressure;Sharp;Spasm Duration Amount of Time: 12 -- Duration Units: Months Years got worse in the last year Frequency: Continuous Continuous Intervention/Comfort measure: Cold;Heat -- Comments: Upper arms, neck, spine Tylenol, Ibuprofen helps some Litigation: No Workers' Compensation: No YELLOW & BLUE FLAGS No-Neg Attitude; Back Pain is Disabling No-Avoiding Activity (for Fear of Pain) No-Depression or Anxiety Disorders No-Social Problems No-Substance Use Disorder No-Job Dissatisfaction No-Financial Disincentives Patient Entered Questionnaires Spine Questions 07/06/2023 Pain Location: Upper back/torso Pain Duration: 1 to 5 years Pain over last 6 months: Every day or nearly every day in the past 6 months Symptoms from neck/cervical spine: Yes Employment Status: Working now Involved in law suit/legal claim: No Spine Red Flags 07/06/2023 Any type of cancer: No Unexplained fever: No Bowel or bladder disfunction: No Unintentional weight loss: No Osteoporosis: No Neck Questionnaires 07/06/2023 Benzel Modified LIGIA Score 17 (A lower score indicates increased pain and issues.) PROMIS Score Percentiles Physical Health 07/06/2023 Physical Function Percentile 24* Sleep Percentile 27* Fatigue Percentile 10 Pain Interference Percentile 8 PROMIS SOCIAL ROLE SCORE 07/06/2023 Social Role Satisfaction Percentile 42 PROMIS Global Health Scale 01/26/2023 05/20/2023 Physical Health Percentile 53 22* Mental Health Percentile 26* 43 Percentiles provide an indication of how the patient's score ranks in relation to the general population. Higher percentile rankings indicate better function/quality of life. 50th percentile is the average of the general population and indicates half of respondents had a worse score. Depression Screening: PHQ-9 11/11/2022 07/06/2023 Score 4 13 PHQ-9 Self Harm 11/11/2022 07/06/2023 Question 9 Not at all Not at all PHQ-9 Self-Harm (Item 9) response options: 0 Not at all 1 Several days 2 More than half the days 3 Nearly every day PHQ-9 Levels: 0-4 No - mild depression 5-9 Mild depression 10-14 Moderate depression 15-19 Moderately severe depression 20-27 Severe depression ACTIVE PROBLEM LIST Acid Reflux Diabetes Mellitus (Hcc) Hypothyroidism Iron Deficiency Migraine Myopia of Both Eyes With Astigmatism Wears Contact Lenses Obesity, Class III, BMI >= 40 History of Sleep Apnea Electronic Cigarette Use Atypical Chest Pain Chronic Nonintractable Headache Episodic Lightheadedness Iih (Idiopathic Intracranial Hypertension) Sweating Abnormality Early Satiety PAST MEDICAL HISTORY Diagnosis Date Anemia Arthritis Bradycardia COVID Generalized anxiety disorder Hypothyroidism Migraines PAST SURGICAL HISTORY Procedure Laterality Date BLOOD PATCH after last / epidural - used own blood DELIVERY ONLY x 3 COLONOSCOPY SCREENING EGD W/O BRSH SPEC VARICIES INJ PAST SURGICAL HISTORY OF laparoscopy x 2 TONSILLECTOMY & ADENOIDECTOMY <AGE 12 Social History Tobacco Use Smoking status: Former Years: 5 Types: Cigarettes Quit date: 10/2022 Years since quittin.7 Smokeless tobacco: Never Tobacco comments: Social smoker- one pack every 2 weeks Vaping Use Vaping Use: Some days Substances: Nicotine, Flavoring Devices: Disposable Substance Use Topics Alcohol use: Yes Comment: usually 6-10 drinks a month, social Drug use: Yes Types: Marijuana Comment: few times a month FAMILY HISTORY Problem Relation Age of Onset No Ocular Disease Mother Thyroid Mother Anesthesia Problems Mother PONV No Ocular Disease Father Parkinson s Disease Father Thyroid Sister No Ocular Disease Maternal Grandmother No Ocular Disease Maternal Grandfather No Ocular Disease Paternal Grandmother No Ocular Disease Paternal Grandfather Heart disease Paternal great-grandparent Heart Attack Paternal great-grandparent Blood Clots No Family History Clotting Disorder No Family History ALLERGIES No Known Allergies CURRENT MEDICATIONS: hyoscyamine (LEVSIN) 0.125 mg tablet^TAKE 1 TABLET BY MOUTH TWICE A DAY^Disp: 180 tablet^Rfl: 1 esomeprazole (NEXIUM) 40 mg capsule^take 1 capsule by mouth every day^Disp: 30 capsule^Rfl: 5 sertraline (ZOLOFT) 25 mg tablet^Take 25 mg by mouth.^Disp: ^Rfl: loratadine (CLARITIN) 10 mg tablet^Take 10 mg by mouth.^Disp: ^Rfl: cholecalciferol, vitamin D3, (VITAMIN D3 ORAL)^Take by mouth.^Disp: ^Rfl: buPROPion XL (WELLBUTRIN XL) 300 mg 24 hr tablet^Take 300 mg by mouth once daily.^Disp: ^Rfl: MAGNESIUM ORAL^Take by mouth.^Disp: ^Rfl: REVIEW OF SYSTEMS: PAIN ASSESSMENT: See HPI. GENERAL: Denies fever, chills malaise and weight loss. HEENT: No recent change in vision or hearing. CARDIOVASCULAR: Bradycardia RESPIRATORY: Denies SOB, sputum production, and hemoptysis. GI: Denies GI ulcers, inflammatory disease, or liver disease. : Denies change in frequency or urgency, kidney disease, and burning with urination. MUSCULOSKELETAL: Positive for See HPI SKIN: Denies rash or itching. PSYCHOLOGICAL: Denies uncontrolled depression or anxiety. NEURO: Migraines ENDOCRINE: HX hypothyroid - resolved HEMATOLOGY/LYMPHOLOGY: Denies cancer, bleeding or clotting disorders, anemia,and DVT's. ALLERGIC/IMMUNOLOGICAL: Denies risks for infection, or recent MRSA infections. OBJECTIVE: PHYSICAL EXAM Ht 157.5 cm (5' 2 ) Wt 130 kg (286 lb 9.6 oz) LMP (LMP Unknown) BMI 52.42 kg/m GENERAL APPEARANCE: Well appearing, well-hydrated, well nourished and alert, overweight/obese SKIN: Head, neck, trunk, and extremities dry, intact and without lesions LUNGS: even and non-labored breathing, normal chest excursion NEURO/PSYCH: oriented to time, place, and person, speech normal, mental status intact GAIT: normal, toe walking normal, heel walking normal, able to tandem gait POSTURE: Posture and spinal curves are normal PALPATION: no palpable masses, tenderness, or spasm, no palpable subluxation or step-off, no point tenderness over the spine MUSCULOSKELETAL: Extended Low Back & Leg Exam Lumbar Range of Motion Flexion Touches floor Extension Normal RIGHT LEFT Lateral Bending Full Full Oblique Extension Within Normal Limits Within Normal Limits DTRs Knee Normal Normal Ankle Normal Normal Babinski normal normal Strength of Lower Extremities Extensor Hallux Longus 5/5 5/5 Ankle Dorsiflexion 5/5 5/5 Ankle Plantarflexion 5/5 5/5 Knee Extension 5/5 5/5 Jerry's Exam: Deferred @[email or web address]@ Cervical Range of Motion Flexion Normal Extension Normal RIGHT LEFT Rotation Full ROM without pain Full ROM without pain Lateral Bend Full ROM without pain Full ROM without pain Upper Body Reflex Exam RIGHT LEFT Reflex Status Reflex Status Biceps 2+ Normal 2+ Normal Triceps 2+ Normal 2+ Normal Iglesias's Sign absent absent Upper Extremity Strength RIGHT LEFT Strength (MMT) Strength (MMT) Shoulder Abduction 5/5 5/5 Biceps 5/5 5/5 Triceps 5/5 5/5 Resisted Suppination 5/5 5/5 Wrist Extension 5/5 5/5 Interossei 5/5 5/5 Shoulder Range of Motion RIGHT LEFT Flexion Normal Normal Extension Normal Normal Abduction Normal Normal Adduction Normal Normal Internal Rotation Normal Normal External Rotation Normal Normal Shoulder Tests Neer Impingement Sign - Negative Empty Can Test - Negative Hawkin's-Willis Test - Negative Speed's Test - Negative NEUROSENSORY: Soft touch; Within Normal Limits Lhermitte's test: Negative Spurling test: Negative Tinel's test: Negative Phalen's test: Negative Neuro Tests: None Data Review: [facility] records independently reviewed Outside records independently reviewed, no imaging available EMG bilateral upper extremity 11/20/2022: Conclusion: -Median neuropathy on the right very minimal in degree electrically. -Needle electrode exam is normal in all muscles studied thus no cervical radiculopathy, no brachial plexopathy. MRI brain with contrast 12/18/2022: Report only No acute intracranial pathology or abnormal postcontrast enhancement. There is flattening of the posterior lateral aspect of the transverse sinuses bilaterally. There is flattening of the dome of the pituitary within the sella which is atypical for the patient's age. This is similar to the prior study. These findings can be seen in patients with IIH. Correlation with the patient's clinical presentation recommended. MRI cervical spine spine with contrast 01/31/2023: Report only See page 32/36 in scanned documents for detailed report No cord compression or cord signal abnormality. No abnormal postcontrast enhancement. No foraminal or central stenosis. MRI thoracic spine with contrast 01/31/2023: Report only See page 29/36 in scanned documents for detailed report Multifocal disc and to a lesser extent facet degenerative changes are noted as above, contributing to varying degrees of spinal canal and neural foraminal narrowing. No abnormal postcontrast enhancement is noted. No cord compression or signal abnormality. Hemoglobin A1C (%) Date Value 12/30/2022 4.5 ASSESSMENT/PLAN Chronic neck pain (primary encounter diagnosis) Chronic bilateral thoracic back pain Case Abdi is a 32 year old female with chronic neck and upper back pain. She denies accident or injury prior to onset of symptoms. MRI cervical spine spine with contrast 01/31/2023: Report only See page 32/36 in scanned documents for detailed report No cord compression or cord signal abnormality. No abnormal postcontrast enhancement. No foraminal or central stenosis. MRI thoracic spine with contrast 01/31/2023: Report only See page 29/36 in scanned documents for detailed report Multifocal disc and to a lesser extent facet degenerative changes are noted as above, contributing to varying degrees of spinal canal and neural foraminal narrowing. No abnormal postcontrast enhancement is noted. No cord compression or signal abnormality. Reviewed trial of physical therapy with [facility]. She was agreeable to attending and consultation order was placed. No changes made to current regimen at time of today's appointment. She is encouraged to keep upcoming appointment with the headache clinic as she reports daily headaches, multifocal, since she attended high school. Plan of care, red flag signs, and when to seek emergent treatment reviewed. 1. Imaging: Obtain copy of previously completed brain, cervical, thoracic spine 2. Physical Therapy: Consult to with [facility] 3. Medication: No changes 4. Referrals: Physical therapy 5. Considerations: Cervical MBB, CPRP 6. Follow up: 3 months Imaging Ordered: None SIGNATURE: Joanie Gonzalez APRN.CNP PATIENT NAME: Case Abdi DATE: July 08, 2023 TIME: 2:05 PM documented in this encounter [facility] 07-06-2023 Instructions Katarina Karimi DO - 07/06/2023 10:43 AM EST Today we discuss your complicated medical history, and medications used to treat symptoms over the past several years. We also briefly review your EMG results, MRI brain, C-spine, T-spine and lumbar puncture results. Lastly we talk about your ophthalmology evaluation in June 2022. The MRI brain mentions some findings that could be consistent with idiopathic intracranial hypertension although the radiology report notes that this should be correlated with your other clinical presentation, suggesting it is somewhat ambiguous. Your eye exam in June 2022, and more importantly lumbar puncture opening pressure in January 2023 both negate a diagnosis of idiopathic intracranial hypertension. Nonetheless because of your headache history I would like an independent ophthalmology exam and have ordered this today. Your other described symptoms including tinnitus, worsening fatigue, early satiety, increased urinary frequency, increased sweating frequency, and unusual sensations in the arms and legs are concerning for possible small fiber neuropathy and/or autonomic neuropathy. My overall recommendation is that we check you for idiopathic intracranial hypertension, small fiber neuropathy, and autonomic neuropathy. I have ordered the following tests, below: 1. Skin biopsy to be done at [facility] 2. QSART sweat test to be done at [facility] 3. Neuro-cardio autonomic test battery with tilt table study, to be done at [facility] 4. Consult to ophthalmology for dilated fundus exam and visual field testing, to be done at [facility] 5. Consult to headache specialist, to be seen at any of our available locations 6. Follow-up with me for an in person physical exam after all of the above testing is completed. I will send you a [employer] message as these results become available. We will discuss next steps once diagnostics are better clarified. documented in this encounter [facility] 07-06-2023 History of Present illness Narrative Images from the original note were not included. [facility] New Patient Virtual Evaluation I have communicated my name and active licensure. The patient's identity and physical location ([place], [place]), were verified at the time of this visit. Either the patient or their legal publications sales representative has been informed of the risks and benefits of -- and alternatives to -- treatment through a remote evaluation and consents to proceed with the evaluation remotely. Consulting Provider: No referring provider defined for this encounter. Individuals who were included in, or assisted with the encounter were: Case Abdi Katarina Karimi DO Chief Complaint/Issues: Case Abdi is a 32 year old female seen in the [facility] Neu[facility] for: Chronic headaches onset approximately age 12 Posterior neck pain Referring provider has suspicion for fibromyalgia Neck pain, arm pain tightness and discomfort in both arms, with paresthesias noted in 2022 that have resolved Blepharospasm, possible optic disc edema remote Cervicogenic headache Ataxia Histories Former smoker, occasionally smokes a cigarette Marijuana usage, stopped summer 2022 Former illicit drug user Migraine headaches with aura, excellent response to Botox, resolved migraine headaches but still has migraine . Right ear tinnitus Anxiety, depression Bradycardia Medications: Botox injections, Nurtec 75 mg ODT as needed for migraine , has not needed since starting botox. Topamax 25 mg once daily (discontinued by [facility] cardiology). Treatments tried and failed: Gabapentin, cyclobenzaprine, Depakote extended release 500 mg (used as an abortive only), magnesium oxide 400 mg (also used as an abortive), occipital and supraorbital nerve blocks (had bad reaction), triptans, and tramadol (not effective). 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 -Needle electrode exam is normal in all muscles studied thus no cervical radiculopathy, no brachial plexopathy. MRI brain with contrast 12/18/2022: No acute intracranial pathology or abnormal postcontrast enhancement. There is flattening of the posterior lateral aspect of the transverse sinuses bilaterally. There is flattening of the dome of the pituitary within the sella which is atypical for the patient's age. This is similar to the prior study. These findings can be seen in patients with IIH. Correlation with the patient's clinical presentation recommended. MRI C-spine with contrast 01/31/2023: See page 32/36 in scanned documents for detailed report No cord compression No abnormal postcontrast enhancement MRI thoracic spine with contrast 01/31/2023: See page 29/36 in scanned documents for detailed report Multilevel facet and disc degenerative changes mild to moderate throughout the thoracic spine No cord signal abnormality No abnormal postcontrast enhancement Lumbar puncture 02/04/2023: Opening pressure 20.5 cm H2O WBC 1 RBC 89 Glucose 55 Protein 32 Meningitis panel negative Cultures negative Cytology: Negative for malignant cells Ophthalmology evaluation/exam 06/25/2022: No disc edema OU HPI: Today, RADHA presents for first visit via televideo, seeks second opinion for her headaches. She explains I get so many different types of headaches . She is now treated with botox for the migrainous headaches, which has resolved the migrainous headaches, but still has other headaches. Seen by Ophthalmology in June 2022 with normal fundus OU, and LP measured opening pressure of 20.5 cm H2O in January 2023. See page 12/36 for excellent outline of treatment plan Today, we do a detailed review of her supplied documentation. Starting July 2022, she said I started noting many little things of concern . She is concerned about the tightness in both arms, which was present one day upon awakening. Started on left arm, then started on the right arm as well. She started to get chest pain, chest tightness. Symptoms occur when sitting in bed with no activity. Her right shoulder is constantly tight, aching, sore. Feels its moving down her spine now. Sometimes sees stars in the vision. New Rx for lenses in 2022. Denies darkening of vision. Denies diplopia. She does feel whooshing/ringing in the right ear when squatting down. Also noting hair loss, tinnitus in right ear, worsening fatigue. She had lost 60 lbs prior to July 2022, and since that time has gained it all back. Notes early satiety. Denies constipation. She has increased urinary frequency. Endorses increased sweating frequency. Endorses dysesthesias in the b/l lateral femoral nerve distribution. Now constantly has heel pain that is new. Has had an extensive cardiology workup for bradycardia. -Needs ophthalmology exam of optic discs -Sx of II? -Send to headache group -consider CTA head and neck to check for vascular causes MRIs and EMG rule out central causes (MS) and large fiber neuropathy. -consider small fiber workup General Examination: She is alone. General: Awake, alert, interactive, no acute distress, good nutritional status, normal development, well-kept Neurological Exam Mental Status Alert, fully oriented, attentive, with normal cognition, memory, speech and affect. Cranial Nerves Extraocular movements normal. No nystagmus, no ptosis. Face symmetrical. Motor Examination and Coordination Well-coordinated symmetrical movements of both arms. Raises arms to face. Manipulates phone and small objects well. No tremor or adventitious movements. No apparent muscle atrophy or deformity/contracture. Reflexes Not examined, distance exam Sensation Not examined Gait Not examined Assessment & Plan 07/06/2023 - General Neurology, Katarina Karimi, ASSESSMENT Patient is 32-year-old right-handed female who presents today via televideo encounter. She seeks a second opinion for her headaches, and numerous other neurologic concerns. Our discussion of headaches focused on the possibility of idiopathic intracranial hypertension. The rest of our conversation is focused around the possibility of dysautonomia and/or small fiber neuropathy. History of chronic headaches since approximately age 12, anxiety, depression, thyroid abnormalities that have resolved , heart rate variability and fluctuations (worked up by cardiology). Because of her long headache history MRI brain was completed December 2022 showing flattening of the posterior lateral aspect of the transverse sinuses, flattening of the dome of the pituitary within the sella and indication for clinical correlation of possible idiopathic intracranial hypertension. A lumbar puncture was completed in January 2023 showing opening pressure 20.5 cm water. She also had ophthalmologic exam in June 2022 that showed no optic disc edema bilaterally. She endorses many symptoms of possible dysautonomia and small fiber neuropathy. See HPI for details. Because of her numerous headache symptoms and potential for IIH, I would like her to be seen for dilated fundus exam and visual field testing by a [facility] assistant quality manager. I do not feel the need to repeat lumbar puncture at this time. I have also sent her to our headache specialist for treatment as she has multiple types of headaches, currently undergoes Botox therapy which only addresses her migraine headaches but not her other headache types. I have also ordered small fiber neuropathy workup and autonomic testing. I would like to see her back in person after all the testing is completed since today's exam does not include a detailed physical neurologic exam. PLAN The MRI brain mentions some findings that could be consistent with idiopathic intracranial hypertension although the radiology report notes that this should be correlated with your other clinical presentation, suggesting it is somewhat ambiguous. Your eye exam in June 2022, and more importantly lumbar puncture opening pressure in January 2023 both negate a diagnosis of idiopathic intracranial hypertension. Nonetheless because of your headache history I would like an independent ophthalmology exam and have ordered this today. Your other described symptoms including tinnitus, worsening fatigue, early satiety, increased urinary frequency, increased sweating frequency, and unusual sensations in the arms and legs are concerning for possible small fiber neuropathy and/or autonomic neuropathy. My overall recommendation is that we check you for idiopathic intracranial hypertension, small fiber neuropathy, and autonomic neuropathy. I have ordered the following tests, below: 1. Skin biopsy to be done at [facility] 2. QSART sweat test to be done at [facility] 3. Neuro-cardio autonomic test battery with tilt table study, to be done at [facility] 4. Consult to ophthalmology for dilated fundus exam and visual field testing, to be done at [facility] 5. Consult to headache specialist, to be seen at any of our available locations 6. Follow-up with me for an in person physical exam after all of the above testing is completed. I will send you a [employer] message as these results become available. We will discuss next steps once diagnostics are better clarified. Encounter Diagnosis ICD-10-CM 1. Paresthesia of skin R20.2 NEURO QSART SKIN BIOPSY FOR NEUROPATHY/CNL 2. Chronic nonintractable headache, unspecified headache type R51.9 SKIN BIOPSY FOR NEUROPATHY/CNL G89.29 CONSULT TO NEUROLOGY CONSULT TO OPHTHALMOLOGY 3. Episodic lightheadedness R42 SKIN BIOPSY FOR NEUROPATHY/CNL NEURO CARDIO AUTONOMIC REFLEX W/WO TILT 4. IIH (idiopathic intracranial hypertension) G93.2 SKIN BIOPSY FOR NEUROPATHY/CNL CONSULT TO OPHTHALMOLOGY 5. Sweating abnormality L74.9 6. Early satiety R68.81 Return in about 4 months (around 11/04/2023). Data Review Objective Current Outpatient Medications Medication Sig hyoscyamine (LEVSIN) 0.125 mg tablet TAKE 1 TABLET BY MOUTH TWICE A DAY esomeprazole (NEXIUM) 40 mg capsule take 1 capsule by mouth every day sertraline (ZOLOFT) 25 mg tablet Take 25 mg by mouth. loratadine (CLARITIN) 10 mg tablet Take 10 mg by mouth. cholecalciferol, vitamin D3, (VITAMIN D3 ORAL) Take by mouth. buPROPion XL (WELLBUTRIN XL) 300 mg 24 hr tablet Take 300 mg by mouth once daily. MAGNESIUM ORAL Take by mouth. Current Facility-Administered Medications Medication Dose Route Frequency acetylcholine 10% solution - [facility] compounding 20 mL IRRIGATION ONE TIME ACTIVE PROBLEM LIST Acid Reflux Diabetes Mellitus (Hcc) Hypothyroidism Iron Deficiency Migraine Myopia of Both Eyes With Astigmatism Wears Contact Lenses Obesity, Class III, BMI >= 40 History of Sleep Apnea Electronic Cigarette Use Atypical Chest Pain Chronic Nonintractable Headache Episodic Lightheadedness Iih (Idiopathic Intracranial Hypertension) Sweating Abnormality Early Satiety PAST MEDICAL HISTORY Diagnosis Date Anemia Arthritis Bradycardia COVID Generalized anxiety disorder Hypothyroidism Migraines PAST SURGICAL HISTORY Procedure Laterality Date BLOOD PATCH after last / epidural - used own blood DELIVERY ONLY x 3 COLONOSCOPY SCREENING EGD W/O BRSH SPEC VARICIES INJ PAST SURGICAL HISTORY OF laparoscopy x 2 TONSILLECTOMY & ADENOIDECTOMY <AGE 12 Social History Tobacco Use Smoking status: Former Years: 5 Types: Cigarettes Quit date: 10/2022 Years since quittin.7 Smokeless tobacco: Never Tobacco comments: Social smoker- one pack every 2 weeks Vaping Use Vaping Use: Some days Substances: Nicotine, Flavoring Devices: Disposable Substance Use Topics Alcohol use: Yes Comment: usually 6-10 drinks a month, social Drug use: Yes Types: Marijuana Comment: few times a month FAMILY HISTORY Problem Relation Age of Onset No Ocular Disease Mother Thyroid Mother Anesthesia Problems Mother PONV No Ocular Disease Father Parkinson s Disease Father Thyroid Sister No Ocular Disease Maternal Grandmother No Ocular Disease Maternal Grandfather No Ocular Disease Paternal Grandmother No Ocular Disease Paternal Grandfather Heart disease Paternal great-grandparent Heart Attack Paternal great-grandparent Blood Clots No Family History Clotting Disorder No Family History Review of Systems Constitutional: Positive for recent weight gain. Skin: Positive for abnormal loss of hair. HENT: Positive for tinnitus (right side only). Musculoskeletal: Positive for neck stiffness. Eyes: Positive for visual disturbance. Cardiovascular: Positive for palpitations. Gastrointestinal: Positive for early satiety. Endocrine: Positive for heat intolerance. Lab and Test Review: Results for orders placed or performed in visit on 05/08/23 PT ED DIGESTIVE DISEASE Result Value Ref Range Computer Systems Consultant Provider KARVictoria your patient [facility] has not started their Miriam program, time has . Miriam program: UPPER GI ENDOSCOPY (EGD) PT ED PATIENT INFORMATION Result Value Ref Range Computer Systems Consultant Provider KARB your patient [facility] has not started their Miriam program, time has . Miriam program: PATIENT SAFETY INSTRUCTIONS FOR HEALTHCARE SETTINGS Outside Data/Labs: Subjective Patient-Entered Data: 07/03/23 - GENERAL NEUROLOGY SCORES PROMIS 10 01/26/2023 05/20/2023 In general, would you say your health is: Good Good In general, would you say your quality of life is: Good Very good In general, how would you rate your physical health? Good Fair In general, how would you rate your mental health, including your mood and your ability to think? Fair Very good In general, how would you rate your satisfaction with your social activities and relationships? Very good Very good To what extent are you able to carry out your everyday physical activities such as walking, climbing stairs, carrying groceries, or moving a chair? Completely Mostly In general, please rate how well you carry out your usual social activities and roles. (This includes activities at home, at work and in your community, and responsibilities as a parent, child, spouse, employee, friend, etc.) Very good Very good How would you rate your pain on average? 2 3 How would you rate your fatigue on average? Mild Moderate How often have you been bothered by emotional problems such as feeling anxious, depressed or irritable? Sometimes Often PROMIS Adult Short Form-Global Health Score (Physical) 50.8 (Very Good) 42.3 (Good) PROMIS Adult Short Form-Global Health Score (Mental) 43.5 (Good) 48.3 (Very Good) Depression Screening 11/11/2022 PHQ-2 Score 0 PHQ-9 Score 4 SLEEP APNEA SCORE 01/26/2023 Probability of moderate-severe sleep apnea (%) SAPS V2 15 (Sleep study not recommended) No flowsheet data found. No flowsheet data found. I spent a total of 70 minutes on the date of the service which included preparing to see the patient, [id number] patient care, completing clinical documentation, obtaining and/or reviewing separately obtained history, performing a medically appropriate examination, counseling and educating the patient/family/caregiver, ordering medications, tests, or procedures, independently interpreting results (not separately reported), and communicating results to the patient/family/caregiver. Katarina Karimi DO documented in this encounter [facility] 07-02-2023 Miscellaneous Notes Referral source: Elie Lerner DO ([facility]) Reason for visit: 2nd opinion from neurology regarding paresthesias, optic disc edema, cervicogenic headache, ataxia External records: Sent with referral Triage: Not required Financial clearance: Not required to schedule documented in this encounter [facility] 05-07-2023 Miscellaneous Notes Spoke to patient she is scheduled with Dr Zhang 05/28 Left message on voicemail for patient to call and schedule sooner with Breann or partner Left voice message regarding results and advised to call office with any further questions. Schedulers, Dr. Crain is hoping to get pt in for EGD with any provider at [facility] before the end of the year. Please review and advise. Thank you Estrellita Montemayor RN documented in this encounter [facility] 02-10-2023 Miscellaneous Notes I reviewed the stress test from 02/09/2023. No further cardiac testing is indicated at this time prior to EGD on 02/11/2023. She is optimized from a cardiology perspective for upcoming procedure. Signed: Aram Rogers DO, [facility] February 10, 2023 This note was partially generated using [employer] voice recognition system, and there may be some incorrect words, spellings, and punctuation that were not noted in checking the note before saving. Ariela Rogers, I saw our mutual patient in [facility] prior to her upcoming EGD scheduled on 02/11/2023 at [facility]. Patient recently saw RONY Mack CNP on 01/30/2023. It appears from that visit that stress test was ordered and has been scheduled for 02/09/2023. After review of the stress test on 02/10/2023 and recent cardiology visit, could you please advise if patient is optimized to proceed with the upcoming procedure? Please also advise if you have any other concerns or recommendations. Thank you, Katlyn Loera PA-C [facility] Images from the original note were not included. Kobe Ochoa APRN.ALEXIS You 10 days ago And has only seen Dr. Aram Rogers. Please advise what specifically are asking for regarding the EGD. HALEY's do not give cardiac clearance I will still need to defer final recommendations to the mac artist after seeing the patient. Kobe Ochoa APRN.SENIOR PLANNING MANAGER Ariela, I saw our mutual patient in [facility] today prior to her upcoming EGD with Dr. Crain on 02/11/2023 at [facility]. She is scheduled to see you on 01/30/2023. After your evaluation of her, please advise if she is able to proceed with the planned procedure and if you have any other concerns or recommendations. Thank you, Katlyn Loera PA-C [facility] documented in this encounter [facility] 02-06-2023 Miscellaneous Notes Canceled. Cancel EGD. Heladio Crain Jr., DO Schedulers, please cancel EGD for next week. Pt has other cardiac concerns and will follow up with GI afterwards. Estrellita Montemayor RN Case Abdi is calling Heladio Crain Jr., DO today with concern regarding upcoming procedure. Patient is requesting to delay procedure. Patient recently has found that she needs additional cardiac testing, and she is also dealing with issue with spinal fluid pressures, which she is needing additional testing for. At this time patient feels she would like to delay the EGD if Dr. Crain agrees. Please advise, and notify the patient. She has upcoming procedure on 02/11/23 Patient has been identified by name and birthdate. Duration of symptoms: N/A Person calling: self Call patient at: at home and on cell [phone] (home) [phone] (work) [phone] (cell) Was an appointment scheduled: No Closing statement: Results or non-symptom based questions: Thank you for calling [facility], your call will be returned within the next business day. Vane Vigil Ma documented in this encounter [facility] 01-30-2023 History of Present illness Narrative Images from the original note were not included. [facility] [place] [facility] Department of Cardiovascular Medicine SECTION OF REGIONAL CARDIOLOGY January 30, 2023 OUTPATIENT VISIT TYPE ESTABLISHED PRIMARY CARE PHYSICIAN: Vargas Malhotra DO SUBJECTIVE: CHIEF COMPLAINT: Patient presents with: CARD Follow Up 3 Month HISTORY OF PRESENT ILLNESS: Case Abdi is a 32 year old female who presents for CVM follow up. Patient has a history of bradycardia, questionable hypothyroid, DM. She had the Mirena implanted in 2020. Last seen in department of cardiology 11/12/[address] Aram Rogers. Per that note...She has been having pain on either side of her sternum intermittently and at rest usually. It has happened when she is driving and while watching TV. She states that it's not palpable. It was lasting about 10 min initially. She states that the pain is now constant. She also has associated chest tightness and pain in her left arm. She describes the pain as pins and needles. This can last 20 minutes to a couple of hours .These additional discomforts started about 3 weeks ago. She decided to stop drinking beer at that time. She also stopped walking as she thought it might aggrivate it. She will feel lightheaded when she stands up from squatting. She was getting ready for the day and then she felt a sinking feeling in her chest as well as the discomfort in her left arm. She also felt like anxiety was starting. She also felt tightness in her right leg. She went to talk to her grandmother and was told that she was sluring words. She states that her entire left side was going numb. Then things gradually got better except she continues to have the pains near her sternum. She has been having shortness of breath when she is lying down getting ready to sleep. She states that she has been sleeping in a chair the last couple nights. She will move to sleeping on her side to breath better if she starts in a supine position. Sometimes she states that she can feel her heart rate dropping. She has some heaviness in her legs by the end of the day if she has been on her feet all day. Since last seen, completed abnormal Exercise stress ECG test 11/20/2022. Abnormal due to symptoms and low chronotropic response index. Functional capacity 6.1 METS-bottom 10 percentile for age and sex. Patient experienced chest discomfort during stress test. Resting hypertension noted. PACs also noted during the test. She followed up with Dr. Mora who advised consideration of vasospasm and/or MVA. Discussed options of invasive testing versus empiric therapy. Today, patient reports she can get some brief sharp pains better since last seen. pain across the chest like a pulled muscle. Stopped taking Imdur. She denies chest pain, shortness of breath, orthopnea, cough, significant edema/weight gain, palpitations, PND, lightheadedness, syncope or other significant CV symptoms. GI issues. Scheduled for ECG. Fair functional capacity (active with ADL). Started walking again and taking the stairs. Walking a mile per day. States compliance with medications. Meals: Good, low card, high protein and vegetables, Some Intermittent fasting. Drinks coffee ~ 1-3. cups of coffee and up to 64 ounces of water daily. REVIEW OF SYSTEMS: Detailed 14 systems reviewed. Pertinent information, positive and/or negative or non-contributory with the exception of pertinent positives described in HPI. Past Medical, Family and Social history reviewed; unchanged from prior. ASSESSMENT/PLAN: Case Abdi was seen today for CVM follow up visit. Diagnoses and all orders for this visit: Encounter Diagnosis ICD-10-CM 1. SOB (shortness of breath) R06.02 2. Chest pain, unspecified type R07.9 NM CARDIAC PERF STRESS/PHARM 3. Abnormal stress test R94.39 4. Premature atrial complexes I49.1 5. Abnormal electrocardiogram R94.31 NM CARDIAC PERF STRESS/PHARM 6. Abnormal laboratory test result R89.9 BASIC METABOLIC PNL 7. Sinus bradycardia R00.1 8. Class 3 severe obesity due to excess calories with serious comorbidity and body mass index (BMI) of 40.0 to 44.9 in adult (HCC) E66.01 Z68.41 9. History of sleep apnea Z86.69 -Exercise stress ECG abnormal 11/20/2022. Patient with reports of chest discomfort at rest and increased with exercise and extended into recovery and low chronotropic response index. Functional capacity at the bottom 10 percentile for age and sex as 6.1 METS. PACs were noted during the test. Continues to describe shortness of breath and chest pain. Has stopped taking Imdur. Remains to proceed with ischemic evaluation with NM perfusion study. Further recommendations following results. -Carotid ultrasound showed 0 to 19% to bilateral internal carotid arteries. -Sleep study scheduled to reassess sleep apnea. -Continue lifestyle modifications: Reduce sodium intake, regular aerobic exercise 30 mins/day for at least 5 days/week, eating heart healthy/Plant-based/mostly whole foods, limited animal products and low dairy diet and maintaining ideal body weight with BMI < 25. Follow up: -Patient will follow-up in 3 months with communication in between if symptoms or changes occur. -Patient should continue to follow with their primary physician for routine health care maintenance and age appropriate risk factor assessment, modification and screenings. PHYSICAL EXAMINATION: BP 110/82 Pulse 63 Wt 117.6 kg (259 lb 3.2 oz) LMP (LMP Unknown) SpO2 99% BMI 47.41 kg/m General appearance: in no acute distress, alert. Eyes: Anicteric sclera. EOMI Neck: faint carotid bruits. NO JVD Lungs: Normal respiratory effort. No wheezing, crackles, or rhonchi. Heart: Regular rhythm. Regular rate. No significant murmur. No peripheral edema Abdomen: Abdomen soft, non-tender. Vascular: Brachial, DP, and PT pulses +2. Neuro: No gross focal deficits Psych: mood appropriate Skin: no rash, cellulitis or lesions appreciated Last 4 Encounter Wt Readings: Date: Wt: 01/26/2023 115.7 kg (255 lb) 12/30/2022 114.3 kg (252 lb) 12/15/2022 110.9 kg (244 lb 8 oz) 11/12/2022 110.7 kg (244 lb) Last 4 Encounter BP Readings: Date: BP: 01/26/2023 [121/78 on 12/30/2022 reviewed as normal[ 12/30/2022 121/78 12/15/2022 131/83 11/12/2022 134/84 Last 4 Encounter Pulse Readings: Date: Pulse: 01/26/2023 76 12/30/2022 82 12/15/2022 59 11/12/2022 68 CARDIOVASCULAR MEDICINE TESTING: I have personally reviewed laboratory results, stress test report, and vascular imaging report Stress Test Stress ECG Conclusion: Conclusion: Abnormal due to symptoms and low chronotropic response index. Functional capacity 6.1 METS-bottom 10 percentile for age and sex. Patient experience chest discomfort during stress test. Resting hypertension noted. PACs also noted during the test. CAROTID US 01/08/2023 IMPRESSION RIGHT SIDE Internal carotid artery: 0-19% stenosis. Vertebral artery: Patent and antegrade flow noted. Innominate artery: Patent. Subclavian artery: Patent. LEFT SIDE Internal carotid artery: 0-19% stenosis. Vertebral artery: Patent and antegrade flow noted. Subclavian artery: Patent. Technologist: Talya Hidalgo RVT Ordering physician: REID MORA Interpreting physician: Osman York MD, RPVI - 11/12/22 Normal sinus rhythm with sinus arrhythmia Normal ECG Holter monitor October 08 - October 11 outside report Interpretation there were 20 less than 1% PVCs and 26 less than 1% PACs. The average heart rate was 69. The heart rate ranged from 40 to 139 bpm. The RR range from 256 ms to 1708 ms. There were 59 sustained tachycardia episodes with total duration 64.4 minutes. The fastest tachycardia was 124 bpm. The longest tachycardia was 4 minutes. There were 400 sustained bradycardia episodes with total duration of 1405.8 or 33.5% minutes. The slowest bradycardia was 45 bpm. The longest bradycardia was 43 minutes. Sinus bradycardia to sinus tachycardia with sinus arrhythmia. PERTINENT LABORATORY STUDIES Potassium (mmol/L) Date Value 11/12/2022 4.1 Sodium (mmol/L) Date Value 11/12/2022 140 Magnesium (mg/dL) Date Value 11/12/2022 2.2 Creatinine (mg/dL) Date Value 11/12/2022 1.00 BUN (mg/dL) Date Value 11/12/2022 15 Glucose (mg/dL) Date Value 11/12/2022 95 TSH (mIU/L) Date Value 11/12/2022 1.030 No results found for: CHOL , HDL , LDL , TG MEDICATIONS Current Outpatient Medications on File Prior to Visit Medication Sig sertraline (ZOLOFT) 25 mg tablet Take 25 mg by mouth. esomeprazole (NEXIUM) 40 mg capsule Take 1 capsule by mouth once daily. loratadine (CLARITIN) 10 mg tablet Take 10 mg by mouth. cholecalciferol, vitamin D3, (VITAMIN D3 ORAL) Take by mouth. buPROPion XL (WELLBUTRIN XL) 300 mg 24 hr tablet Take 300 mg by mouth once daily. MAGNESIUM ORAL Take by mouth. No current facility-administered medications on file prior to visit. ALLERGIES No Known Allergies ACTIVE PROBLEM LIST History of Sleep Apnea - 01/26/2023 Electronic Cigarette Use - 01/26/2023 Atypical Chest Pain - 01/26/2023 Obesity, Class III, BMI >= 40 - 12/15/2022 Acid Reflux - 06/25/2022 Migraine - 06/25/2022 Myopia of Both Eyes With Astigmatism - 06/25/2022 Wears Contact Lenses - 06/25/2022 Hypothyroidism - 01/12/2022 Iron Deficiency - 01/10/2022 Diabetes Mellitus (Hcc) - 01/18/2020 PAST MEDICAL HISTORY Diagnosis Date Anemia Arthritis Bradycardia COVID Generalized anxiety disorder Hypothyroidism Migraines PAST SURGICAL HISTORY Procedure Laterality Date BLOOD PATCH after last / epidural - used own blood DELIVERY ONLY x 3 COLONOSCOPY SCREENING EGD W/O BRSH SPEC VARICIES INJ PAST SURGICAL HISTORY OF laparoscopy x 2 TONSILLECTOMY & ADENOIDECTOMY <AGE 12 FAMILY HISTORY Problem Relation Age of Onset No Ocular Disease Mother Thyroid Mother Anesthesia Problems Mother PONV No Ocular Disease Father Parkinson s Disease Father Thyroid Sister No Ocular Disease Maternal Grandmother No Ocular Disease Maternal Grandfather No Ocular Disease Paternal Grandmother No Ocular Disease Paternal Grandfather Heart disease Paternal great-grandparent Heart Attack Paternal great-grandparent Blood Clots No Family History Clotting Disorder No Family History Social History Tobacco Use Smoking status: Former Years: 5 Types: Cigarettes Quit date: 10/2022 Years since quittin.2 Smokeless tobacco: Never Tobacco comments: Social smoker- one pack every 2 weeks Vaping Use Vaping Use: Some days Substances: Nicotine, Flavoring Devices: Disposable Substance Use Topics Alcohol use: Yes Comment: usually 6-10 drinks a month Drug use: Yes Types: Marijuana Comment: few times a month Elements of this note, including HPI, ROS, Physical Exam, Assessment and Plan were copied and pasted from previous office visit notes completed within our department. Updates have been made where appropriate/noted and reflect current exam and medical decision making from date of this visit. This note was partially generated with [employer] voice recognition software and may contain errors, including spelling, grammar, syntax and misrecognition of what was dictated, that may not be fully corrected. I appreciate the opportunity to participate in this patient's care. Please do not hesitate to call my office if you have any questions. CONTACT INFORMATION: Kobe Ochoa APRN.SENIOR PLANNING MANAGER Adult Nurse Practitioner [facility] Department of Cardiovascular Medicine [facility] Heart, Vascular, Thoracic [place] [facility] Surgery [facility] Cardiology Consult Team documented in this encounter [facility] 01-26-2023 Instructions Katlyn Loera PA-C - 01/26/2023 10:28 AM EDT PATIENT PREOPERATIVE INSTRUCTIONS Heladio Crain Jr., DO has scheduled you for your procedure at this surgery center: [facility]: [phone] --[id number] [place] [address]. Please enter through the entrance closest to [facility]. Arrival Time for Surgery: - The Surgery Center or hospital where you are having surgery will call the afternoon before surgery (or Thursday for Thursday surgery) with a scheduled arrival time. - If you have not heard by 4 pm, please contact the surgery center above. Please read below carefully for your personalized instructions. Dietary Restrictions: - No solid food after midnight. - You may have 12 ounces of clear liquids (water, clear juices such as apple juice or gatorade, carbonated beverages, clear tea, black coffee, jello) until 2 hours before scheduled arrival at facility. Medications: Unless instructed differently below, stay on all of your medications until your surgery. If you start any new medications after today's visit, please contact your surgeon. Pre-Surgery Med Instructions Medication Instructions sertraline (ZOLOFT) 25 mg tablet Take the day of surgery with a small sip of water esomeprazole (NEXIUM) 40 mg capsule Take the day of surgery with a small sip of water loratadine (CLARITIN) 10 mg tablet Take the day of surgery with a small sip of water cholecalciferol, vitamin D3, (VITAMIN D3 ORAL) Stop 14 days before surgery buPROPion XL (WELLBUTRIN XL) 300 mg 24 hr tablet Take the day of surgery with a small sip of water MAGNESIUM ORAL Stop 14 days before surgery If you start any new medications after today's visit, please contact the surgeon's office. Blood Thinning Medications: - Stop NSAIDS (Ibuprofen, Advil, Aleve, Motrin, Celebrex, Mobic, etc.) 7 days before surgery, as directed by your surgeon. - Stop Aspirin 7 days before surgery, as directed by your surgeon. - Stop Vitamin E, ALL multi-vitamins, herbals and dietary supplements 14 days before surgery. - You may take Tylenol (Acetaminophen) or any of your pain medications that do not contain aspirin or NSAIDS as needed. Important Reminders: - If you use CPAP/BIPAP, bring the machine with you to the surgery center. - Candy, mints, and tobacco products are NOT permitted the morning of surgery. - Hearing aids, dentures and glasses may be worn the morning of surgery. - NO jewelry, body piercings, makeup, hairpins or contacts are to be worn the day of surgery. If you develop symptoms such as a fever, cold, or flu, or have other changes to your health within TWO DAYS of scheduled surgery or the morning of surgery, please contact the surgery center above. Personal Belongings: -Please have photo ID and insurance cards. -If you do not have a copy of advance directives on file with us, please bring a copy with you on the day of surgery. - Leave ALL valuables and money at home or with family members. For Outpatient Procedures: - YOU MUST HAVE A RESPONSIBLE RADIATION ONCOLOGY NURSE TAKE YOU HOME. A CROP SPECIALIST OR INTEGRATION LEAD CANNOT BE MADE A RESPONSIBLE RADIATION ONCOLOGY NURSE. - We recommend that a responsible person stays with you overnight to take care of you. - You cannot stay in a hotel alone after outpatient surgery. You will not be permitted to have your surgery, if you do not have someone to take care of you. Please be aware that emergency situations arise, which may delay or change your surgical time. If this happens, we will notify you as soon as possible and regret any inconvenience. If you already have an Advance Directive, please fax a copy to [phone] or email to for it to be added to your chart. If you do not have an Advance Directive, you can find the appropriate form and more information at [email or web address]. We recommend that you complete the Advance Directive form found on the website and bring it with you the day of your surgery. It can be witnessed and scanned into your chart that day. Katlyn Loera PA-C documented in this encounter [facility] 01-26-2023 History and physical note Images from the original note were not included. HISTORY AND PHYSICAL EXAMINATION SERVICE DATE: 01/26/2023 SERVICE TIME: 11:08 AM PRIMARY CARE PHYSICIAN: Vargas Malhotra, DO This is a virtual visit using Virtual Visit (Audio/Visual) I have discussed the nature of this visit with the patient which will occur via Distance Health (Phone, Virtual Visit) and she agrees to proceed with this interaction . It required patient-provider interaction for the medical decision making as documented below. I have communicated my name and active licensure. The patient's identity and physical location were verified at the time of this visit. Either the patient or their legal publications sales representative has been informed of the risks and benefits of and alternatives to treatment through a remote evaluation and consents to proceed with the evaluation remotely. This is a virtual visit using Snipshot video visit. It required patient-provider interaction for the medical decision making as documented below. REASON FOR VISIT: Case Abdi is a 32 year old female who is scheduled for * No surgery found * at the request of Dr. Heladio Crain Jr. for consultation. My final recommendation will be communicated back to the requesting physician by way of shared medical record or letter. Subjective The patient has the following: ACTIVE PROBLEM LIST Acid Reflux Diabetes Mellitus (Hcc) Hypothyroidism Iron Deficiency Migraine Myopia of Both Eyes With Astigmatism Wears Contact Lenses Obesity, Class III, BMI >= 40 History of Sleep Apnea Electronic Cigarette Use Atypical Chest Pain COVID-19 Immunization Status Overdue - COVID-19 VACCINE (1) Overdue - never done No completion, postpone, frequency change, or communication history exists for this topic. Patient reports being not vaccinated against COVID-19. CHIEF COMPLAINT: GERD HPI: Patient is a 32 year old female presenting with acid reflux and a feeling of a lump in her throat that has been worsening in the last year. She also notes bloating. She denies any diarrhea or constipation or any blood in her stool. She notes burning in my stomach when passing a bowel movement. She had a prior EGD and colonoscopy approximately in 2020. Patient denies any other specific radiating, alleviating or aggravating factors. REVIEW OF SYSTEMS: General: No weight loss, malaise or fevers. Neurological: No history of TIA's, stroke, TELESCOPE MAINTENANCE tumor, impaired sensorium, hemiplegia, paraplegia or quadraplegia. No neurological symptoms or problems. Respiratory: Electronic cigarette use Positive for: obstructive sleep apnea. Cardiovascular: Atypical chest pain . No history of HTN requiring medication, no history of angina, CHF, [place], cardiac surgery or stents. Denies rest pain, gangrene or revascularization/amputation for PVD. No history of cardiovascular symptoms or problems. GI: Positive for: GERD Negative for: abdominal pain, heartburn, nausea and vomiting. : No history of dysuria, frequency or incontinence, stones or chronic kidney disease. No difficulty urinating, nocturia > 1 time per night or hematuria. Endocrine: Positive for: diabetes mellitus and hypothyroidism. Negative for: steroid for chronic problem. Hematology: No history of bleeding or clotting disorder. Patient is not taking anti-coagulation or platelet medications. No history of hematological symptoms or problems. Oncology: No history of CA metastasis, chemo within 30 days, or radiotherapy within 90 days. No history of oncological symptoms or problems. Psych: No history of psychiatric symptoms or problems. Musculoskeletal: Negative for joint pain or swelling, back pain or muscle pain. Skin: Negative for lesions, rash and itching. PAST MEDICAL HISTORY Diagnosis Date Anemia Arthritis Bradycardia COVID Generalized anxiety disorder Hypothyroidism Migraines PAST SURGICAL HISTORY Procedure Laterality Date BLOOD PATCH after last / epidural - used own blood DELIVERY ONLY x 3 COLONOSCOPY SCREENING EGD W/O BRSH SPEC VARICIES INJ PAST SURGICAL HISTORY OF laparoscopy x 2 TONSILLECTOMY & ADENOIDECTOMY <AGE 12 FAMILY HISTORY Problem Relation Age of Onset No Ocular Disease Mother Thyroid Mother Anesthesia Problems Mother PONV No Ocular Disease Father Parkinson s Disease Father Thyroid Sister No Ocular Disease Maternal Grandmother No Ocular Disease Maternal Grandfather No Ocular Disease Paternal Grandmother No Ocular Disease Paternal Grandfather Heart disease Paternal great-grandparent Heart Attack Paternal great-grandparent Blood Clots No Family History Clotting Disorder No Family History Social History Tobacco Use Smoking status: Former Years: 5 Types: Cigarettes Quit date: 10/2022 Years since quittin.2 Smokeless tobacco: Never Tobacco comments: Social smoker- one pack every 2 weeks Vaping Use Vaping Use: Some days Substances: Nicotine, Flavoring Devices: Disposable Substance Use Topics Alcohol use: Yes Comment: usually 6-10 drinks a month Drug use: Yes Types: Marijuana Comment: few times a month Prior to Admission medications as of 01/26/23 1005 Medication Sig Last Dose Taking sertraline (ZOLOFT) 25 mg tablet Take 25 mg by mouth. Taking Yes esomeprazole (NEXIUM) 40 mg capsule Take 1 capsule by mouth once daily. Taking Yes loratadine (CLARITIN) 10 mg tablet Take 10 mg by mouth. Taking Yes cholecalciferol, vitamin D3, (VITAMIN D3 ORAL) Take by mouth. Taking Yes buPROPion XL (WELLBUTRIN XL) 300 mg 24 hr tablet Take 300 mg by mouth once daily. Taking Yes MAGNESIUM ORAL Take by mouth. Taking Yes No medication comments found. ALLERGIES No Known Allergies Objective PHYSICAL EXAM: (if completed, exam performed via video enabled technology) General: alert and oriented, healthy appearance and morbidly obese. Pertinent negatives noted - not distressed. Skin: normal color, no rash or lesions. HEENT: Head is normocephalic, no abnormality or lesion noted Eyes show no injection and visual acuity is grossly normal Ears note grossly normal hearing Nose exam notes external nose is normal without rhinorrhea Oropharynx exam notes moist mucous membranes with no noted tonsillar hypertrophy, erythema or edema Uvula is midline. . Cardiovascular: Patient palpated radial pulse, regular when counted aloud by patient. Capillary refill is less than 3 seconds in bilateral upper extremities. . Respiratory: Equal chest rise with normal respiratory effort . Abdomen: soft. Pertinent negatives noted - not distended and not tender. No pain upon palpation by patient . Extremities: no deformity, no edema or tenderness, no joint swelling or clubbing. Neurological: normal cognition and motor skills. Gait stated to be normal per patient . PAIN ASSESSMENT: VITALS: BP [121/78 on 12/30/2022 reviewed as normal[ Pulse 76 Temp [does not have a thermometer available - feeling well[ Resp 17 Ht 5' 2 (1.58m) Wt 255 lb (115.7kg) BMI 46.63 kg/(m^2). Diagnostic tests reviewed for today's visit: Lab Value Units Date High Low HB 14.6 g/dL 11/12/2022 15.5 11.5 HCT 41.3 % 11/12/2022 46.0 36.0 WBC 5.05 k/uL 11/12/2022 11.00 3.70 PLT 232 k/uL 11/12/2022 400 150 NA 140 mmol/L 11/12/2022 144 136 K 4.1 mmol/L 11/12/2022 5.1 3.7 GLUC 95 mg/dL 11/12/2022 99 74 BUN 15 mg/dL 11/12/2022 21 7 CREAT 1.00 mg/dL 11/12/2022 0.96 0.58 PTSEC No results within date range. INR No results within date range. APTT No results within date range. ALT 15 U/L 11/12/2022 38 7 AST 17 U/L 11/12/2022 35 13 TBILI 0.9 mg/dL 11/12/2022 1.3 0.2 TSH 1.030 mIU/L 11/12/2022 4.200 0.270 Lab Value Units Date High Low HCGQT No results within date range. UHCG No results within date range. HCG, BODY* No results within date range. Lab Value Units Date High Low ABORHD No results within date range. ABSCREEN No results within date range. Hemoglobin A1C (%) Date Value 12/30/2022 4.5 No results found for this or any previous visit (from the past 8760 hour(s)). No results found for this or any previous visit (from the past 45908 hour(s)). CAROTID US: 01/08/2023 IMPRESSION RIGHT SIDE Internal carotid artery: 0-19% stenosis. Vertebral artery: Patent and antegrade flow noted. Innominate artery: Patent. Subclavian artery: Patent. LEFT SIDE Internal carotid artery: 0-19% stenosis. Vertebral artery: Patent and antegrade flow noted. Subclavian artery: Patent. STRESS TEST: 11/20/2022 EK11/12/2022 MRI - Brain 12/18/2022 Assessment Patient has the following medical conditions which may affect herbert-operative course: Hypothyroidism Assessment: States is well controlled without need for medication at this time and denies any recent exacerbations Follows with PCP Diabetes mellitus (HCC) Assessment: Follows with PCP Was previously on Ozempic for weight loss Possible insulin resistance, per pt Most recent A1c was Hemoglobin A1C (%) Date Value 12/30/2022 4.5 ) Obesity, Class III, BMI >= 40 Assessment: Body mass index is 46.64 kg/m . Acid reflux Assessment: planned upcoming procedure for States is managed with Nexium and denies any recent exacerbations Follows with PCP Migraine Assessment: following with neurology Receives botox injections for Recent MRI done at [facility] - neurology is currently evaluating for possible intracranial hypertension based on increased pressure MRI sent to me in Snipshot Preoperative Instructions message reply I have copied 'Impression' to my note above. History of sleep apnea Assessment: history of Prior PSG years ago said small amount of but no CPAP was recommended She has an upcoming PSG planned next month Electronic cigarette use Assessment: some day use Disposable; contains nicotine and flavoring Iron deficiency Assessment: denies any need for supplementation at this time CBC from 11/12/2022 Hgb14.6 Hct41.3 Atypical chest pain Assessment: following with cardiology, Drs. Rogers and Abby She trialed IMDUR however did not like how she felt and did not notice any change in her typical symptoms Is to see cardiology on 01/30/[address] Mora on 12/15/2022: HISTORY OF PRESENT ILLNESS: Ms. Abdi is a 32 year old female who presents today with complaints of chest pain. Her symptoms have been there for years, but worse in last few months. Not related to activity. Start with mild pain in the chest that gradually spreads across the precordium and radiates to left shoulder, arm and fingers. Variable in duration 20-45 minutes. Associated with ALEJANDRO. She is not sure if this is anxiety or more heart related, but that has taken her to the ER a couple of times. No abonrmal troponin and no EKG changes. On one occasion, she aslo had slurred speech and numbness on left side of her face. She did not get any workup related to stroke, but that is planned for next week.. History of migraine on chronic topamax therapy. A stress test 3 weeks ago demonstrated no ischemic changes, but she did have chest discomfort and lower than expected peak activity ... IMPRESSION: Ms. Abdi is a 32 year old female has symptoms with multiple anginal features, though not typical. Can consider vasospasm and/or MVA. We discussed options of invasive testing first vs. Emperic therapy for now. She will think about it and let me know . PLAN AND RECOMMENDATIONS: Awaiting her decision to proceed with procedure scheduling or medical Rx prescription Hall Activity Status Index: METS: Do heavy work around the house, such as scrubbing floors, lifting or moving heavy furniture (8.00 METs) DASI Score: 8 Patient denies any chest pain or undue shortness of breath with the above physical activity. Clinical Frailty Scale: 3. Well, with treated comorbid disease STOP-Bang Score: STOP-Bang Score: 0 (Planned upcoming PSG History of ANTHONY but no CPAP was recommended at the time. Since then she has lost 60 pounds. ) [id number] Score: Diabetes history: Yes [id number] Score: 1 ANESTHESIA FINDINGS: Intubation History: No history of difficult intubation. No abnormal airway history Significant Anesthesia Considerations: potential postop nausea/vomiting Airway History: No prior anesthesia report available for review at this time. Her mother has a history of PONV No history of difficult airway No abnormal airway history I - PHYSICAL EVALUATION AIRWAY Patient intubated: No. Tracheostomy tube not present Mallampati: III. TM distance: >3 FB. Neck ROM: full ROM without neurological symptoms. Mouth opening: adequate. Short neck: no. Thick neck: no Keys present: no Lip Bite Test: I Microretrognathia/Micronagthia/Recesse d Chin: No DENTAL Dental findings: teeth intact. II - ANESTHESIA PLAN Anesthetic Plan: other Anesthetic plan additional comments: *PACC/TCI - anesthesia choice. Beta Liss Monitoring Plan Post Procedure Analgesic Plan Prepared for Surgery: . MRI of brain copied into my note above and full report uploaded by patient to Snipshot message from today, 01/26/2023. Patient is scheduled for cardiology appointment 01/30/2023. I have sent a Telephone Encounter to cardiology provider for optimization after evaluation. Pending recommendation at this time. CONSULTS: The following consults have been initiated at this time: cardiology. Planned Anesthetic: other anesthesia choice The Following Tests/Procedures Have Been Initiated: Orders Placed This Encounter sertraline (ZOLOFT) 25 mg tablet Sig: Take 25 mg by mouth. Instructions Given to Patient: Instructions located in the after visit summary. Patient given verbal and written preop instructions and voices comprehension and compliance. SIGNATURE: Katlyn Loera PA-C PATIENT NAME: Case Abdi DATE: January 26, 2023 TIME: 9:57 AM PAGER/CONTACT #: documented in this encounter [facility] 01-13-2023 Note HNO ID: [id number] Author: Yoseph Maradiaga RT(Mulugeta) Service: Nuclear Medicine Author Type: Technologist Type: Progress Notes Filed: 02/03/2023 9:18 AM Note Text: RADIOLOGY SERVICE PROGRESS NOTE SERVICE DATE: 01/13/2023 SERVICE TIME: 12:04 PM PATIENT IDENTITY VERIFICATION COMPLETED USING TWO (2) STANDARD IDENTIFIERS: Name and Date of confirmed by patient verbally FALL SCREENING: Has the patient had 2 falls in the last year or 1 fall with injury or currently using an Ambulatory Assistive Device (Walker, Cane, Wheelchair, Crutches, etc.)? No PATIENT GENDER DATA: .female : No ALLERGIES: Reviewed and unchanged MEDICATIONS REVIEWED: No PATIENT RELEVANT IMPLANT DATA REVIEWED: Not Applicable CREATININE: Creatinine Date Value Ref Range Status 11/12/2022 1.00 (H) 0.58 - 0.96 mg/dL Final Estimated Glomerular Filtration Rate Date Value Ref Range Status 11/12/2022 77 >=60 mL/min/1.73m? Final Comment: Estimated Glomerular Filtration Rate (eGFR) is calculated using the 2020 CKD-EPI creatinine equation. This equation utilizes serum creatinine, sex, and age as parameters. The creatinine assay has traceable calibration to isotope dilution-mass spectrometry. Refer to KDIGO guidelines for clinical interpretation. In patients with unstable renal function, e.g. those with acute kidney injury, the eGFR may not accurately reflect actual GFR. P.O.C.T. RESULTS: N/A January 13, [address] PERFORMED: No IV SITE: Ambulatory: A peripheral IV was started in the Right antecubital site with a Angio cath: 24 gauge. POST EXAM PIV STATUS: Discontinued PROCEDURE TYPE: NM INJECT: Hida. 5.6 mCi Tc99m CHOLETEC. CCK 2.29 micrograms intravenous at prn. ADMINISTRATION TIME: prn PATIENT DISCHARGED TO: Ambulatory patient, left [place] department area. A Diagnostic radioactive procedure has taken place, with no further precautions necessary other than routine body substance precautions. More information regarding radiation safety can be found using this link: [email or web address] [email or web address] SIGNATURE: RT Arslan(Mulugeta) PATIENT NAME: Case Abdi DATE: January 13, 2023 TIME: 12:04 PM PAGER/CONTACT #: [facility] 01-13-2023 Note HNO ID: [id number] Author: Qiana Hernandez RT(R) Service: Nuclear Medicine Author Type: Medical Assistant Instructor Type: Progress Notes Filed: 01/13/2023 1:13 PM Note Text: RADIOLOGY SERVICE PROGRESS NOTE SERVICE DATE: 01/13/2023 SERVICE TIME: 1:10 PM PATIENT IDENTITY VERIFICATION COMPLETED USING TWO (2) STANDARD IDENTIFIERS: Name and Date of confirmed by patient verbally FALL SCREENING: Has the patient had 2 falls in the last year or 1 fall with injury or currently using an Ambulatory Assistive Device (Walker, Cane, Wheelchair, Crutches, etc.)? No PATIENT GENDER DATA: .female : No status: No ALLERGIES: Reviewed and unchanged MEDICATIONS REVIEWED: Yes PATIENT RELEVANT IMPLANT DATA REVIEWED: Not Applicable CREATININE: Creatinine Date Value Ref Range Status 11/12/2022 1.00 (H) 0.58 - 0.96 mg/dL Final Estimated Glomerular Filtration Rate Date Value Ref Range Status 11/12/2022 77 >=60 mL/min/1.73m? Final Comment: Estimated Glomerular Filtration Rate (eGFR) is calculated using the 2020 CKD-EPI creatinine equation. This equation utilizes serum creatinine, sex, and age as parameters. The creatinine assay has traceable calibration to isotope dilution-mass spectrometry. Refer to KDIGO guidelines for clinical interpretation. In patients with unstable renal function, e.g. those with acute kidney injury, the eGFR may not accurately reflect actual GFR. P.O.C.T. RESULTS: N/A January 13, [address] PERFORMED: No IV SITE: Ambulatory: A peripheral IV was started in the Right antecubital site with a Angio cath: 24 gauge. IV started by RT Dora (N) POST EXAM PIV STATUS: Discontinued PROCEDURE TYPE: NM INJECT: HIDA with ejection fraction. 5.6 mCi Tc99m CHOLETEC. CCK 2.29 micrograms intravenous at 13:00 over 30 minutes using a med-pump. Started by LAKSHMI Marshall. Choletec IV ADMINISTRATION TIME: 12:00 assay and administration by Emil LEVINE (N). PATIENT DISCHARGED TO: Ambulatory patient, left [place] department area. A Diagnostic radioactive procedure has taken place, with no further precautions necessary other than routine body substance precautions. More information regarding radiation safety can be found using this link: [email or web address]%20Medicine [email or web address] SIGNATURE: RT Rolando(R)LAKSHMI PATIENT NAME: Case Abdi DATE: January 13, 2023 TIME: 1:10 PM PAGER/CONTACT #: [facility] 01-13-2023 History of Present illness Narrative RADIOLOGY SERVICE PROGRESS NOTE SERVICE DATE: 01/13/2023 SERVICE TIME: 12:04 PM PATIENT IDENTITY VERIFICATION COMPLETED USING TWO (2) STANDARD IDENTIFIERS: Name and Date of confirmed by patient verbally FALL SCREENING: Has the patient had 2 falls in the last year or 1 fall with injury or currently using an Ambulatory Assistive Device (Walker, Cane, Wheelchair, Crutches, etc.)? No PATIENT GENDER DATA: .female : No ALLERGIES: Reviewed and unchanged MEDICATIONS REVIEWED: No PATIENT RELEVANT IMPLANT DATA REVIEWED: Not Applicable CREATININE: Creatinine Date Value Ref Range Status 11/12/2022 1.00 (H) 0.58 - 0.96 mg/dL Final Estimated Glomerular Filtration Rate Date Value Ref Range Status 11/12/2022 77 >=60 mL/min/1.73m Final Comment: Estimated Glomerular Filtration Rate (eGFR) is calculated using the 2020 CKD-EPI creatinine equation. This equation utilizes serum creatinine, sex, and age as parameters. The creatinine assay has traceable calibration to isotope dilution-mass spectrometry. Refer to KDIGO guidelines for clinical interpretation. In patients with unstable renal function, e.g. those with acute kidney injury, the eGFR may not accurately reflect actual GFR. P.O.C.T. RESULTS: N/A January 13, [address] PERFORMED: No IV SITE: Ambulatory: A peripheral IV was started in the Right antecubital site with a Angio cath: 24 gauge. POST EXAM PIV STATUS: Discontinued PROCEDURE TYPE: NM INJECT: Hida. 5.6 mCi Tc99m CHOLETEC. CCK 2.29 micrograms intravenous at prn. ADMINISTRATION TIME: prn PATIENT DISCHARGED TO: Ambulatory patient, left [place] department area. A Diagnostic radioactive procedure has taken place, with no further precautions necessary other than routine body substance precautions. More information regarding radiation safety can be found using this link: [email or web address] [email or web address]%20Nuclear%20Medicine% [email or web address] SIGNATURE: RT Arslan(Mulugeta) PATIENT NAME: Case Abdi DATE: January 13, 2023 TIME: 12:04 PM PAGER/CONTACT #: RADIOLOGY SERVICE PROGRESS NOTE SERVICE DATE: 01/13/2023 SERVICE TIME: 1:10 PM PATIENT IDENTITY VERIFICATION COMPLETED USING TWO (2) STANDARD IDENTIFIERS: Name and Date of confirmed by patient verbally FALL SCREENING: Has the patient had 2 falls in the last year or 1 fall with injury or currently using an Ambulatory Assistive Device (Walker, Cane, Wheelchair, Crutches, etc.)? No PATIENT GENDER DATA: .female : No status: No ALLERGIES: Reviewed and unchanged MEDICATIONS REVIEWED: Yes PATIENT RELEVANT IMPLANT DATA REVIEWED: Not Applicable CREATININE: Creatinine Date Value Ref Range Status 11/12/2022 1.00 (H) 0.58 - 0.96 mg/dL Final Estimated Glomerular Filtration Rate Date Value Ref Range Status 11/12/2022 77 >=60 mL/min/1.73m Final Comment: Estimated Glomerular Filtration Rate (eGFR) is calculated using the 2020 CKD-EPI creatinine equation. This equation utilizes serum creatinine, sex, and age as parameters. The creatinine assay has traceable calibration to isotope dilution-mass spectrometry. Refer to KDIGO guidelines for clinical interpretation. In patients with unstable renal function, e.g. those with acute kidney injury, the eGFR may not accurately reflect actual GFR. P.O.C.T. RESULTS: N/A January 13, [address] PERFORMED: No IV SITE: Ambulatory: A peripheral IV was started in the Right antecubital site with a Angio cath: 24 gauge. IV started by RT Dora (N) POST EXAM PIV STATUS: Discontinued PROCEDURE TYPE: NM INJECT: HIDA with ejection fraction. 5.6 mCi Tc99m CHOLETEC. CCK 2.29 micrograms intravenous at 13:00 over 30 minutes using a med-pump. Started by LAKSMHI Marshall. Choletec IV ADMINISTRATION TIME: 12:00 assay and administration by Emil LEVINE (N). PATIENT DISCHARGED TO: Ambulatory patient, left [place] department area. A Diagnostic radioactive procedure has taken place, with no further precautions necessary other than routine body substance precautions. More information regarding radiation safety can be found using this link: [email or web address] [email or web address]%20Nuclear%20Medicine% 20Procedures.[email or web address] SIGNATURE: RT Rolando([place]), LAKSHMI PATIENT NAME: Case Abdi DATE: January 13, 2023 TIME: 1:10 PM PAGER/CONTACT #: documented in this encounter [facility] 01-12-2023 Miscellaneous Notes Called patient with prep information for her HIDA scan documented in this encounter [facility] 01-05-2023 Miscellaneous Notes Pt reviewed bloodwork results per mychart. Estrellita Montemayor RN ----- Message from Heladio Crain Jr., DO sent at 01/05/2023 7:22 AM EDT ----- Celiac and inflammatory markers negative Heladio Crain Jr., DO documented in this encounter [facility] 12-30-2022 Heladio Yanez Jr., DO - 12/30/2022 2:50 PM EDT Schedule EGD and HIDA scan Check labs Low FODMAP Diet What does FODMAP stand for? Fermentable Oligosaccharides (oligo - 'few', saccharide - 'sugar') Disaccharides (two sugars) Monosaccharides (one sugar) And Polyols (sugar alcohols) FODMAPs are a type of carbohydrate, or sugar found in certain foods. Carbohydrates give us energy, along with fat and protein. People with irritable bowel syndrome (IBS), a slow moving gut, poor other bowel disorder may not tolerate foods with FODMAPS. This is because FODMAPS are not easily absorbed by the bowel. Symptoms of FODMAP intolerance include gas, abdominal discomfort, distention, bloating, fullness, nausea, and/or pain after eating foods containing FODMAPS. High FODMAP Foods to avoid/reduce Vegetables and Legumes Garlic - avoid entirely if possible (Includes garlic salt, garlic powder) Onions - avoid entirely if possible (Includes onion powder, small picked onions Artichoke Asparagus Baked beans Bananas, ripe Beetroot, fresh Black beans Black eyed peas Broad beans Butter beans Cassava Cauliflower Celery - greater than 5cm of stalk Cho cho Choko Falafel Fermented cabbage e.g. sauerkraut Haricot beans Kidney beans Lu beans Mau bulb Tout Mixed vegetables Mung beans Mushrooms Peas, sugar snap Pickled vegetables Red kidney beans Green Castle Cabbage Soy beans / soya beans Split peas Scallions / spring onions (bulb / white part) Shallots Taro Drinks and Protein Powders Beer - if drinking more than one bottle Coconut water Cordial, apple and raspberry with 50-100% real juice Cordial, orange with 25-50% real juice Fruit and herbal teas with apple added Fruit juices in large quantities Fruit juices made of apple, pear, winston Kombucha Bracken juice in quantities over 100ml Rum Sodas containing High Fructose [place] Syrup (HFCS) Soy milk made with soy beans - commonly found in tagga Sports drinks Tea: Black tea with added soy milk Oliverio tea, strong Dandelion tea, strong Fennel tea Chamomile tea Herbal tea, strong Oolong tea Wine - if drinking more than one glass Whey protein, concentrate unless lactose free Whey protein, hydrolyzed unless lactose free Fruit - can contain high fructose Apples Apricots Avocado Blackberries Blackcurrants Boysenberry Cherries Currants Custard apple Dates Feijoa Figs Goji berries Grapefruit Guava, unripe Lychee Winston Nectarines Paw paw, dried Peaches Pears Persimmon Pineapple, dried Plums Pomegranate Prunes Raisins Sea buckthorns Sultanas [place] Tinned fruit in apple / pear juice Watermelon Condiments, Dips, Sweets, Sweeteners and Spreads Agave Caviar dip Fructose Fruit bar Gravy, if it contains onion High fructose corn syrup (HFCS) Hummus / houmous Honey Jam, mixed berries Jam, strawberry, if contains HFCS Pesto sauce Quince paste Relish / vegetable pickle Stock cubes Sugar free sweets containing polyols - usually ending in -ol or isomalt Sweeteners: Inulin Isomalt Maltitol Mannitol Sorbitol Xylitol Tahini paste Tzatziki dip Dairy Foods Buttermilk Cheese, cream Cheese, Halmoumi Cheese, ricotta Cream Custard Gelato Ice cream Kefir Milk: Cow milk Goat milk Evaporated milk Sheep s milk Sour cream Yoghurt Cereals, Grains, Breads, Biscuits, Pasta, Nuts and Cakes Wheat containing products such as (be sure to check labels): Biscuits including chocolate chip biscuits Bread, wheat - over 1 slice Breadcrumbs Cakes Cereal bar, wheat based Croissants Crumpets Egg noodles Muffins Pastries Pasta, wheat over 1/2 cup cooked Udon noodles Wheat bran Wheat cereals Wheat flour Wheat noodles Wheat rolls Wheatgerm [place] meal Amaranth flour Barley including flour Bran cereals Bread: Granary bread Multigrain bread Naan Oatmeal bread Pumpernickel bread Roti Sourdough with kamut Cashews Cous cous Einkorn flour Freekeh Gnocchi Granola bar Muesli cereal Muesli bar Pistachios [place] crispbread [place] Spelt flour Meats, Poultry and Meat Substitutes Chorizo Sausages documented in this encounter [facility] 12-30-2022 History of Present illness Narrative Patient presents with: Stomach issues: Feeling full will eating, bloating HPI: Case Abdi, 32 year old female, presents in the office today for abdominal bloating and reflux. Over the past few years she has increased bloating, indigestion, RUQ pain, and GERD. She has been treated for GERD and IBS-D with limited benefit. Nexium, pantoprazole, Carafate, dicyclomine, probiotics, IBgard failed to provide substantial benefit and she is reluctant to take additional medications at this time. Food makes symptoms worse but no particular culprits identified. RUQ US negative in September, no recent HIDA scan. Last EGD and colonoscopy were 2 yrs ago. Negative family history. Previously following with Dr. Lance in [place]. Past GI workup 11/12/22 ER visit notes as follows: Patient is a 32-year-old female with history of anxiety who presented to the ED with chest pain. States that for the last few weeks has had intermittent episodes of chest pain. Discomfort seems to be increasing. Described as a tightness, times going down her left arm, at times with sharp pain in the middle of her chest. Can occur at rest. There have been no aggravating or alleviating factors. States that she was seen in [place] for the symptoms but no cause has been found. She was referred to cardiology, has an appointment later today but could not make it to her appointment due to the severity marychuy her symptoms. She reports a history of significant bradycardia, worsened at nighttime with heart rates in the 30s. 10/09/22 US Gallbladder NEGATIVE ULTRASOUND OF THE GALLBLADDER AND LIVER. 10/09/22 family medicine notes as follows: Case is a 32 yo female who presents today intermittent RUQ for the last year. States she has been lifting more and getting more exercise. Pain has been increasing in the last few weeks. At times pain is very sharp and does not go away. No excessive gas, bloating, or belching. No vomiting but gets very nauseous. no acid reflux. Pain at times wraps around to back. At times has difficulty sitting, standing and laying down. Has sharp pain when inhaling. Starting to get SOB as she feels she cant get a good breathe in. Claims she does have her gallbladder and unsure if there is any family HX of any issues. At times has no appetite. Colonoscopy (11/12/2020), Esophagogastroduodenoscopy and biopsy (11/12/2020 Component Latest Ref Rng & Units 11/12/2022 Protein, Total 6.3 - 8.0 g/dL 7.2 Albumin 3.9 - 4.9 g/dL 4.4 Calcium 8.5 - 10.2 mg/dL 9.2 Bilirubin, Total 0.2 - 1.3 mg/dL 0.9 Alkaline Phosphatase 34 - 123 U/L 92 AST 13 - 35 U/L 17 ALT 7 - 38 U/L 15 Glucose 74 - 99 mg/dL 95 BUN 7 - 21 mg/dL 15 Creatinine 0.58 - 0.96 mg/dL 1.00 (H) Sodium 136 - 144 mmol/L 140 Potassium 3.7 - 5.1 mmol/L 4.1 Chloride 97 - 105 mmol/L 106 (H) CO2 22 - 30 mmol/L 21 (L) Anion Gap 9 - 18 mmol/L 13 eGFR >=60 mL/min/1.73m 77 CIRILO High Sensitivity <12 ng/L <6 d Dimer <500 ng/mL FEU <190 Magnesium 1.7 - 2.3 mg/dL 2.2 TSH 0.270 - 4.200 mIU/L 1.030 Free T3 2.3 - 4.1 pg/mL 3.6 Free T4 0.9 - 1.7 ng/dL 1.2 PAST MEDICAL HISTORY Diagnosis Date Anemia Arthritis Bradycardia COVID Generalized anxiety disorder Hypothyroidism Migraines PAST SURGICAL HISTORY Procedure Laterality Date TONSILLECTOMY & ADENOIDECTOMY <AGE 12 Current Outpatient Medications on File Prior to Visit Medication Sig isosorbide mononitrate ER (IMDUR) 30 mg 24 hr tablet TAKE 1 TABLET BY MOUTH EVERY DAY cholecalciferol, vitamin D3, (VITAMIN D3 ORAL) Take by mouth. buPROPion XL (WELLBUTRIN XL) 300 mg 24 hr tablet Take 300 mg by mouth once daily. topiramate (TOPAMAX) 50 mg tablet Take 50 mg by mouth twice daily. MAGNESIUM ORAL Take by mouth. esomeprazole magnesium (NEXIUM ORAL) Take 20 mg by mouth once daily. No current facility-administered medications on file prior to visit. Allergies: No Known Allergies Review of Systems Constitutional: Negative for chills, fatigue and fever. HENT: Negative for hearing loss, nosebleeds, tinnitus and trouble swallowing. Eyes: Negative for visual disturbance. Respiratory: Negative for cough, shortness of breath and wheezing. Cardiovascular: Negative for chest pain and palpitations. Gastrointestinal: Positive for abdominal distention, abdominal pain, diarrhea and nausea. Negative for blood in stool, constipation and vomiting. Endocrine: Negative for polyphagia. Genitourinary: Negative for dysuria, frequency and hematuria. Musculoskeletal: Negative for arthralgias and joint swelling. Skin: Negative for pallor and rash. Neurological: Negative for dizziness, tremors, seizures, syncope and headaches. Hematological: Does not bruise/bleed easily. BP 121/78 Pulse 82 Temp 36.9 C (98.5 F) (Temporal) Ht 157.5 cm (5' 2 ) Wt 114.3 kg (252 lb) LMP (LMP Unknown) SpO2 97% BMI 46.09 kg/m Physical Exam Constitutional: General: She is not in acute distress. HENT: Mouth/Throat: Pharynx: Oropharynx is clear. Eyes: Conjunctiva/sclera: Conjunctivae normal. Cardiovascular: Rate and Rhythm: Normal rate and regular rhythm. Pulmonary: Effort: Pulmonary effort is normal. Breath sounds: Normal breath sounds. Abdominal: General: Bowel sounds are normal. There is no distension. Palpations: Abdomen is soft. Tenderness: There is no abdominal tenderness. There is no guarding or rebound. Hernia: No hernia is present. Musculoskeletal: General: No swelling. Skin: General: Skin is warm and dry. Coloration: Skin is not jaundiced. Neurological: Mental Status: She is alert. Mental status is at baseline. ASSESSMENT/PLAN: 32 y/o female with intermittent RUQ pain, nausea, bloating, indigestion, and loose stools. Suspect related to GERD, IBS, and possibly gall bladder component. At this time check labs including celiac, setup for EGD and CCK HIDA, and start low FODmap diet. May consider digestive enzymes. 1. Gastroesophageal reflux disease, unspecified whether esophagitis present - ICD9: 530.81, ICD10: K21.9 (primary diagnosis) - EGD DIAGNOSTIC - SED RATE WESTERGREN - C-REACTIVE PROTEIN (CRP) 2. Dyspepsia and disorder of function of stomach - ICD9: 536.8, ICD10: K31.9, R10.13 - EGD DIAGNOSTIC - CELIAC SCREEN WITH REFLEX - SED RATE WESTERGREN - C-REACTIVE PROTEIN (CRP) - NM HEPATOBILIARY W EF AND/OR RX 3. Irritable bowel syndrome with diarrhea - ICD9: 564.1, ICD10: K58.0 - CELIAC SCREEN WITH REFLEX - SED RATE WESTERGREN - C-REACTIVE PROTEIN (CRP) 4. RUQ pain - ICD9: 789.01, ICD10: R10.11 - NM HEPATOBILIARY W EF AND/OR RX Heladio Crain Jr. documented in this encounter [facility] 12-23-2022 Hospital Discharge instructions Patient Education 12/23/2022 09:48:17 Otitis Media, Adult Otitis Media, Adult Otitis media occurs when there is inflammation and fluid in the middle ear with signs and symptoms of an acute infection. The middle ear is a part of the ear that contains bones for hearing as well as air that helps send sounds to the brain. When infected fluid builds up in this space, it causes pressure and can lead to an ear infection. The eustachian tube connects the middle ear to the back of the nose (nasopharynx) and normally allows air into the middle ear. If the eustachian tube becomes blocked, fluid can build up and become infected. What are the causes? This condition is caused by a blockage in the eustachian tube. This can be caused by mucus or by swelling of the tube. Problems that can cause a blockage include: A cold or other upper respiratory infection. Allergies. An irritant, such as tobacco smoke. Enlarged adenoids. The adenoids are areas of soft tissue located high in the back of the throat, behind the nose and the roof of the mouth. They are part of the body's defense system (immune system). A mass in the nasopharynx. Damage to the ear caused by pressure changes (barotrauma). What increases the risk? You are more likely to develop this condition if you: Smoke or are exposed to tobacco smoke. Have an opening in the roof of your mouth (cleft palate). Have gastroesophageal reflux. Have an immune system disorder. What are the signs or symptoms? Symptoms of this condition include: Ear pain. Fever. Decreased hearing. Tiredness (lethargy). Fluid leaking from the ear, if the eardrum is ruptured or has burst. Ringing in the ear. How is this diagnosed? This condition is diagnosed with a physical exam. During the exam, your health care provider will use an instrument called an otoscope to look in your ear and check for redness, swelling, and fluid. He or she will also ask about your symptoms. Your health care provider may also order tests, such as: A pneumatic otoscopy. This is a test to check the movement of the eardrum. It is done by squeezing a small amount of air into the ear. A tympanogram. This is a test that shows how well the eardrum moves in response to air pressure in the ear canal. It provides a graph for your health care provider to review. How is this treated? This condition can go away on its own within 3 5 days. But if the condition is caused by a bacterial infection and does not go away on its own, or if it keeps coming back, your health care provider may: Prescribe antibiotic medicine to treat the infection. Prescribe or recommend medicines to control pain. Follow these instructions at home: Take hycb-ewr-qzvcvvy and prescription medicines only as told by your health care provider. If you were prescribed an antibiotic medicine, take it as told by your health care provider. Do not stop taking the antibiotic even if you start to feel better. Keep all follow-up visits. This is important. Contact a health care provider if: You have bleeding from your nose. There is a lump on your neck. You are not feeling better in 5 days. You feel worse instead of better. Get help right away if: You have severe pain that is not controlled with medicine. You have swelling, redness, or pain around your ear. You have stiffness in your neck. A part of your face is not moving (paralyzed). The bone behind your ear (mastoid bone) is tender when you touch it. You develop a severe headache. Summary Otitis media is redness, soreness, and swelling of the middle ear, usually resulting in pain and decreased hearing. This condition can go away on its own within 3 5 days. If the problem does not go away in 3 5 days, your health care provider may give you medicines to treat the infection. If you were prescribed an antibiotic medicine, take it as told by your health care provider. Follow all instructions that were given to you by your health care provider. This information is not intended to replace advice given to you by your health care provider. Make sure you discuss any questions you have with your health care provider. Document Revised: 08/12/2021 Document Reviewed: 08/12/2021 [employer] Patient Education 2022 [employer]. 12/23/2022 09:48:15 BMI for Adults BMI for Adults What is BMI? Body mass index (BMI) is a number that is calculated from a person's weight and height. BMI can help estimate how much of a person's weight is composed of fat. BMI does not measure body fat directly. Rather, it is an alternative to procedures that directly measure body fat, which can be difficult and expensive. BMI can help identify people who may be at higher risk for certain medical problems. What are BMI measurements used for? BMI is used as a screening tool to identify possible weight problems. It helps determine whether a person is obese, overweight, a healthy weight, or underweight. BMI is useful for: Identifying a weight problem that may be related to a medical condition or may increase the risk for medical problems. Promoting changes, such as changes in diet and exercise, to help reach a healthy weight. BMI screening can be repeated to see if these changes are working. How is BMI calculated? BMI involves measuring your weight in relation to your height. Both height and weight are measured, and the BMI is calculated from those numbers. This can be done either in [place] or metric measurements. Note that charts and online BMI calculators are available to help you find your BMI quickly and easily without having to do these calculations yourself. To calculate your BMI in [place] measurements: 1.Measure your weight in pounds (lb). 2.Multiply the number of pounds by 703. For example, for a person who weighs 180 lb, multiply that number by 703, which equals 126,540. 3.Measure your height in inches. Then multiply that number by itself to get a measurement called inches squared. For example, for a person who is 70 inches tall, the inches squared measurement is 70 inches x 70 inches, which equals 4,900 inches squared. 4.Divide the total from step 2 (number of lb x 703) by the total from step 3 (inches squared): 126,540 4,900 = 25.8. This is your BMI. To calculate your BMI in metric measurements: 1.Measure your weight in kilograms (kg). 2.Measure your height in meters (m). Then multiply that number by itself to get a measurement called meters squared. For example, for a person who is 1.75 m tall, the meters squared measurement is 1.75 m x 1.75 m, which is equal to 3.1 meters squared. 3.Divide the number of kilograms (your weight) by the meters squared number. In this example: 70 3.1 = 22.6. This is your BMI. What do the results mean? BMI charts are used to identify whether you are underweight, normal weight, overweight, or obese. The following guidelines will be used: Underweight: BMI less than 18.5. Normal weight: BMI between 18.5 and 24.9. Overweight: BMI between 25 and 29.9. Obese: BMI of 30 or above. Keep these notes in mind: Weight includes both fat and muscle, so someone with a muscular build, such as an athlete, may have a BMI that is higher than 24.9. In cases like these, BMI is not an accurate measure of body fat. To determine if excess body fat is the cause of a BMI of 25 or higher, further assessments may need to be done by a health care provider. BMI is usually interpreted in the same way for men and women. Where to find more information For more information about BMI, including tools to quickly calculate your BMI, go to these websites: Centers for Disease Control and Prevention: www.cdc.gov [place] [employer]: www.heart.org National Heart, Lung, and Blood [place]: www.nhlbi.nih.gov Summary Body mass index (BMI) is a number that is calculated from a person's weight and height. BMI may help estimate how much of a person's weight is composed of fat. BMI can help identify those who may be at higher risk for certain medical problems. BMI can be measured using [place] measurements or metric measurements. BMI charts are used to identify whether you are underweight, normal weight, overweight, or obese. This information is not intended to replace advice given to you by your health care provider. Make sure you discuss any questions you have with your health care provider. Document Revised: 01/25/2020 Document Reviewed: 12/02/2019 [employer] Patient Education 2022 [employer]. [facility] 12-17-2022 Miscellaneous Notes The following approved medication requests have been transmitted electronically. Requested Prescriptions Signed Prescriptions Disp Refills isosorbide mononitrate ER (IMDUR) 30 mg 24 hr tablet 90 tablet 3 Sig: TAKE 1 TABLET BY MOUTH EVERY DAY Authorizing Provider: ARAM ROGERS Ordering User: KOBE OCHOA APRN.CNP Received request for refill of the following medications: Requested Prescriptions Pending Prescriptions Disp Refills isosorbide mononitrate ER (IMDUR) 30 mg 24 hr tablet [Pharmacy Med Name: ISOSORBIDE MONONIT ER 30 MG TB] 90 tablet 3 Sig: TAKE 1 TABLET BY MOUTH EVERY DAY Patient requested a 90 day refill. Pharmacy verified and updated accordingly. Patient was last seen in cardiology office: 11/12/22. Upcoming appointment scheduled: 01/30/23. Labs: Hemoglobin (g/dL) Date Value 11/12/2022 14.6 Hematocrit (%) Date Value 11/12/2022 41.3 WBC (k/uL) Date Value 11/12/2022 5.05 Platelet Count (k/uL) Date Value 11/12/2022 232 Creatinine Date Value Ref Range Status 11/12/2022 1.00 (H) 0.58 - 0.96 mg/dL Final documented in this encounter [facility] 12-15-2022 History of Present illness Narrative Images from the original note were not included. [facility] [place] [facility] Department of Cardiovascular Medicine SECTION OF INTERVENTIONAL CARDIOLOGY OUTPATIENT VISIT DATE December 15, 2022 OUTPATIENT VISIT TYPE NEW PRIMARY CARE PHYSICIAN: Vargas Malhotra [facility] [address] [place] [address] REFERRING PHYSICIAN: No referring provider defined for this encounter. CHIEF COMPLAINT: 2nd opinion regarding microvascular disease HISTORY OF PRESENT ILLNESS: Ms. Abdi is a 32 year old female who presents today with complaints of chest pain. Her symptoms have been there for years, but worse in last few months. Not related to activity. Start with mild pain in the chest that gradually spreads across the precordium and radiates to left shoulder, arm and fingers. Variable in duration 20-45 minutes. Associated with ALEJANDRO. She is not sure if this is anxiety or more heart related, but that has taken her to the ER a couple of times. No abonrmal troponin and no EKG changes. On one occasion, she aslo had slurred speech and numbness on left side of her face. She did not get any workup related to stroke, but that is planned for next week.. History of migraine on chronic topamax therapy. A stress test 3 weeks ago demonstrated no ischemic changes, but she did have chest discomfort and lower than expected peak activity NURSING INTAKE: Past medical history of: anxiety and hypothyroid, bradycardia, depression, anemia She has been having pain on either side of her sternum intermittently and at rest usually. It has happened when she is driving and while watching TV. She states that it's not palpable. It was lasting about 10 min initially. She states that the pain is now constant. She also has associated chest tightness and pain in her left arm. She describes the pain as pins and needles. This can last 20 minutes to a couple of hours .These additional discomforts started about 3 weeks ago. She decided to stop drinking beer at that time. She also stopped walking as she thought it might aggrivate it. She will feel lightheaded when she stands up from squatting. She was getting ready for the day and then she felt a sinking feeling in her chest as well as the discomfort in her left arm. She also felt like anxiety was starting. She also felt tightness in her right leg. She went to talk to her grandmother and was told that she was sluring words. She states that her entire left side was going numb. Then things gradually got better except she continues to have the pains near her sternum. She has been having shortness of breath when she is lying down getting ready to sleep. She states that she has been sleeping in a chair the last couple nights. She will move to sleeping on her side to breath better if she starts in a supine position. Sometimes she states that she can feel her heart rate dropping. She has some heaviness in her legs by the end of the day if she has been on her feet all day. She denies having any: LE edema, syncope, N/V, bleeding, or other significant symptoms. The patient is here today for cardiovascular evaluation and a second opinion. She states that she saw a mac artist a couple of years ago for feeling lightheaded and having a low heart rate. She recently went back to that mac artist and then saw Dr. Rogers with [facility]. She states that a couple of months ago she started experiencing a heavy pulling sensation across her chest. She mentions that it might have been occurring longer, but she thought it was muscle strain related. She states that it lasts about +/- 45 minutes and occurs mostly at rest. The pain radiates down her left arm and comes in waves of intensity that keep her up at night. She will also occasionally feel sharp pains, but that has subsided since starting Imdur almost a month ago. She feels SOB when she is having the chest pain. She will feel palpitations when laying down at night. She feels lightheaded and dizzy when bending over or getting up too quickly from a sitting position. She has had a few episodes where she was slurring her words and having numbness on the left side of her face. She went to the ER in late October for these symptoms, but nothing was found. Risk factors for coronary artery disease history of smoking, family history of CAD, obesity She denies orthopnea, PND, syncope, claudication, cough, and wheezing. Diet / Nutrition: regular Weight: stable Exercise: walking 3-4x per week Holter monitor October 08 - October 11 outside report Interpretation there were 20 less than 1% PVCs and 26 less than 1% PACs. The average heart rate was 69. The heart rate ranged from 40 to 139 bpm. The RR range from 256 ms to 1708 ms. There were 59 sustained tachycardia episodes with total duration 64.4 minutes. The fastest tachycardia was 124 bpm. The longest tachycardia was 4 minutes. There were 400 sustained bradycardia episodes with total duration of 1405.8 or 33.5% minutes. The slowest bradycardia was 45 bpm. The longest bradycardia was 43 minutes. Sinus bradycardia to sinus tachycardia with sinus arrhythmia. 11/12/22 EK11/20/22 Exercise Stress ECG (without imaging): Recent Labs: Component Latest Ref Rng & Units 11/12/2022 11/12/2022 11/12/2022 9:05 AM 10:06 AM 12:59 PM WBC 3.70 - 11.00 k/uL 5.05 RBC 3.90 - 5.20 m/uL 4.65 Hemoglobin 11.5 - 15.5 g/dL 14.6 Hematocrit 36.0 - 46.0 % 41.3 MCV 80.0 - 100.0 fL 88.8 MCH 26.0 - 34.0 pg 31.4 MCHC 30.5 - 36.0 g/dL 35.4 RDW-CV 11.5 - 15.0 % 11.7 Platelet Count 150 - 400 k/uL 232 MPV 9.0 - 12.7 fL 9.7 Neut% % 71.5 Abs Neut (ANC) 1.45 - 7.50 k/uL 3.61 Lymph% % 19.8 Abs Lymph 1.00 - 4.00 k/uL 1.00 [place]% % 6.7 Abs [place] <0.87 k/uL 0.34 Eosin% % 1.2 Abs Eosin <0.46 k/uL 0.06 Baso% % 0.6 Abs Baso <0.11 k/uL 0.03 Immature Gran % % 0.2 IMMATURE GRANS (ABS) <0.10 k/uL <0.03 NRBC /100 WBC 0.0 Absolute nRBC <0.01 k/uL <0.01 DTYPE Auto Protein, Total 6.3 - 8.0 g/dL 7.2 Albumin 3.9 - 4.9 g/dL 4.4 Calcium 8.5 - 10.2 mg/dL 9.2 Bilirubin, Total 0.2 - 1.3 mg/dL 0.9 Alkaline Phosphatase 34 - 123 U/L 92 AST 13 - 35 U/L 17 ALT 7 - 38 U/L 15 Glucose 74 - 99 mg/dL 95 BUN 7 - 21 mg/dL 15 Creatinine 0.58 - 0.96 mg/dL 1.00 (H) Sodium 136 - 144 mmol/L 140 Potassium 3.7 - 5.1 mmol/L 4.1 Chloride 97 - 105 mmol/L 106 (H) CO2 22 - 30 mmol/L 21 (L) Anion Gap 9 - 18 mmol/L 13 eGFR >=60 mL/min/1.73m 77 CIRILO High Sensitivity <12 ng/L <6 8 d Dimer <500 ng/mL FEU <190 Magnesium 1.7 - 2.3 mg/dL 2.2 TSH 0.270 - 4.200 mIU/L 1.030 PAST MEDICAL HISTORY Diagnosis Date Anemia Arthritis Bradycardia COVID Generalized anxiety disorder Hypothyroidism Migraines PAST SURGICAL HISTORY Procedure Laterality Date TONSILLECTOMY & ADENOIDECTOMY <AGE 12 SOCIAL HISTORY Social History Tobacco Use Smoking status: Former Years: 5.00 Types: Cigarettes Quit date: 10/2022 Years since quittin.1 Smokeless tobacco: Never Tobacco comments: Social smoker- one pack every 2 weeks Vaping Use Vaping Use: Former Substance Use Topics Alcohol use: Not Currently Drug use: Not Currently Types: Marijuana FAMILY HISTORY Problem Relation Age of Onset No Ocular Disease Mother Thyroid Mother No Ocular Disease Father Parkinson s Disease Father Thyroid Sister No Ocular Disease Maternal Grandmother No Ocular Disease Maternal Grandfather No Ocular Disease Paternal Grandmother No Ocular Disease Paternal Grandfather Heart disease Paternal great-grandparent Heart Attack Paternal great-grandparent ALLERGIES: ALLERGIES No Known Allergies MEDICATIONS: isosorbide mononitrate ER (IMDUR) 30 mg 24 hr tablet Take 1 tablet by mouth once daily. cholecalciferol, vitamin D3, (VITAMIN D3 ORAL) Take by mouth. buPROPion XL (WELLBUTRIN XL) 300 mg 24 hr tablet Take 300 mg by mouth once daily. topiramate (TOPAMAX) 50 mg tablet Take 50 mg by mouth twice daily. MAGNESIUM ORAL Take by mouth. esomeprazole magnesium (NEXIUM ORAL) Take 20 mg by mouth once daily. REVIEW OF SYSTEMS: GENERAL: no fever, no chills, and no change in weight HEENT: no hearing loss, no difficulty swallowing, no visual changes, no nose bleeds, headaches SKIN: no rashes, no lesions, and no ulcers RESPIRATORY: SEE HPI CARDIOVASCULAR: no syncope and no claudication GASTROINTESTINAL: no vomiting, no difficulty or painful swallowing, no melanotic stools, abdominal pain, and nausea GENITOURINARY: no dysuria, frequency, and nocturia MUSCULOSKELETAL: no joint pain, no joint swelling, no pain with walking, and muscle pain or myalgias NEUROLOGIC: numbness, tingling, and sensation of pins and needles HEMATOLOGY: no prolonged bleeding, no anemia, no cancer, and bruising easily ENDOCRINE: no cold or heat intolerance, no polyuria, no polydipsia, no goiter, no diabetes, and thyroid disease PSYCH: no sleep disturbance, no recent psychosocial stressors, and mood disorders PHYSICAL EXAMINATION: BP 131/83 Pulse 59 Resp 18 Ht 5' 2 (1.58m) Wt 244 lb 8 oz (110.9kg) SpO2 99[RA]% BMI 44.71 kg/(m^2). General: Well appearing, in no acute distress, speaking in complete sentences. Skin: No clubbing, no cyanosis. Head/Eyes: Extra ocular movements intact Mouth: Teeth in good repair. Neck: No jugular venous distention, no carotid bruits, carotids have a normal upstroke, no palpable thyromegaly. Lungs: Clear to auscultation and no rales Heart: Regular rhythm, PMI not displaced, S1, S2 normal, no S3, no S4, no heaves, no rub and no murmur. PV Pulses:Pulses intact Abdomen: Soft, nontender, bowel sounds normal, no palpable organomegaly, no bruits. Extremities: No peripheral edema . Grade 2/4 distal pulses bilaterally. Edema Scale: No Musculoskeletal: Normal gait and ambulation Neuro: Oriented to time, place and person CARDIOVASCULAR MEDICINE TESTING: No Cardiovascular testing perfomed today. There were no tests performed for review. IMPRESSION: Ms. Abdi is a 32 year old female has symptoms with multiple anginal features, though not typical. Can consider vasospasm and/or MVA. We discussed options of invasive testing first vs. Emperic therapy for now. She will think about it and let me know . PLAN AND RECOMMENDATIONS: Awaiting her decision to proceed with procedure scheduling or medical Rx prescription I personally interviewed, confirmed and edited the above information as obtained by others. CONTACT INFORMATION: documented in this encounter [facility] 11-25-2022 Miscellaneous Notes Patient called office to schedule New patient visit with Dr. Mora per referral from Dr. Rogers Scheduling for 12/15 - sent to [facility] f14 Dx - Assess for Microvascular dysfuction documented in this encounter [facility] 11-25-2022 Miscellaneous Notes [facility] must schedule their own appointments. I spoke with patient. [facility] Office phone provided to patient to call and schedule with Dr. Mora. Office: [phone]. [facility] [place] Department of Cardiovascular Medicine TELEPHONE VISIT (audio only) PROGRESS NOTE This is a telephone encounter initiated for an established patient. The patient, parent or guardian is not originating from a related Evaluation & Management service provided within the previous 7 days nor leading to an Evaluation & Management service or procedure within the next 24 hours or soonest available appointment. I have communicated my name and active licensure. The patient's identity and physical location were verified at the time of this visit. Either the patient or their legal publications sales representative has been informed of the risks and benefits of -- and alternatives to -- treatment through a remote evaluation and consents to proceed with the evaluation remotely. Case Abdi has consented to this telephone encounter. Persons Present: patient Chief Complaint/Reason: Chest pain and shortness of breath. HPI: 32 year old female with a PMH of bradycardia, questionable hypothyroid, DM. She had the Mirena implanted in 2020. I saw her on 11/12/2022 where she described chest discomfort and shortness of breath. At that time, a stress test was ordered and completed. Her stress test did not show any significant ST changes. She did have exertional chest discomfort that resolved with rest. Since her test she has had episodes roughly daily. She states that there is a squeezing sensation in her chest that radiates from her right to her left and also down her left arm at times. She continues to feel very anxious. She checks her ECG at home which has been normal rhythm or inconclusive . I reviewed one of her inconclusive ECGs which showed NSR. Data Reviewed: Most recent labs and imaging results. Most recent EKG Stress test Assessment: Shortness of breath Chest pain Abnormal stress test Obese Anxiety Plan: At this time, I recommend empiric therapy with Imdur 30 mg daily. She should continue to monitor her symptoms. Also, recommend referral to [facility] cardiology for possible microvascular/vasospastic disease. It appears that she continues to have significant anxiety regarding this as well as the control she is using. She should discuss these with her PCP. Total Time Spent: 11-20 minutes Aram Rogers DO documented in this encounter [facility] 11-12-2022 History of Present illness Narrative Images from the original note were not included. [facility] [place] SECTION OF REGIONAL CARDIOLOGY OUTPATIENT VISIT DATE November 12, 2022 OUTPATIENT VISIT TYPE NEW PRIMARY CARE PHYSICIAN: Vargas Malhotra [address] [place] [address] Patient is being seen at the request of the referring physician for chest discomfort HISTORY OF PRESENT ILLNESS: Ms. Abdi is a 32 year old female with a PMH of bradycardia, questionable hypothyroid, DM. She had the Mirena implanted in 2020. She has been having pain on either side of her sternum intermittently and at rest usually. It has happened when she is driving and while watching TV. She states that it's not palpable. It was lasting about 10 min initially. She states that the pain is now constant. She also has associated chest tightness and pain in her left arm. She describes the pain as pins and needles. This can last 20 minutes to a couple of hours .These additional discomforts started about 3 weeks ago. She decided to stop drinking beer at that time. She also stopped walking as she thought it might aggrivate it. She will feel lightheaded when she stands up from squatting. She was getting ready for the day and then she felt a sinking feeling in her chest as well as the discomfort in her left arm. She also felt like anxiety was starting. She also felt tightness in her right leg. She went to talk to her grandmother and was told that she was sluring words. She states that her entire left side was going numb. Then things gradually got better except she continues to have the pains near her sternum. She has been having shortness of breath when she is lying down getting ready to sleep. She states that she has been sleeping in a chair the last couple nights. She will move to sleeping on her side to breath better if she starts in a supine position. Sometimes she states that she can feel her heart rate dropping. She has some heaviness in her legs by the end of the day if she has been on her feet all day. She denies having any: LE edema, syncope, N/V, bleeding, or other significant symptoms. She is eating vegetables daily. She will drink a cup of coffee in the morning, sometimes she will drink a celcius. She feels the most normal when she has the caffeine. She will drink two beers 2 times a week and 2 on the weekends. She quit smoking a couple years ago. She continues to be a social vapper, she is cutting back and hasn't had any in a couple days. She hasn't had any MJ since the 30 of October. She was walking 3 miles a day and hasn't done this in over a month. She states that when her heart rate increases she will feel lightheaded. Family, no known cardiac history in 1st degree problems. Maternal grandmother used to have some chest discomfort. 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 She was working for [employer]. Upon further questioning, she also states that she is losing a lot of hair lately. She has lost over 60lbs over the last 1.5-2 years. She was very fatigued in 20 IMPRESSION: Encounter Diagnosis ICD-10-CM 1. SOB (shortness of breath) R06.02 EXERCISE STRESS ECG (WITHOUT IMAGING) 2. Chest pain, unspecified type R07.9 EXERCISE STRESS ECG (WITHOUT IMAGING) 3. Palpitations R00.2 EXERCISE STRESS ECG (WITHOUT IMAGING) 4. Other fatigue R53.83 TSH BLD 5. Sinus bradycardia R00.1 POLYSOMNOGRAM (PSG) 6. Class 3 severe obesity due to excess calories with serious comorbidity and body mass index (BMI) of 40.0 to 44.9 in adult ([facility]) E66.01 Z68.41 PLAN AND RECOMMENDATIONS: Shortness of breath, chest discomfort, palpitations noted. Recommend a stress test to evaluate: Functional capacity, for stress-induced arrhythmia, and also for ischemia. Of note she does have a history of breathing difficulty as an infant. Chest discomfort is not palpable at this time however has some varied characteristics. She also felt like exercise triggered her symptoms previously. I recommend that she drink 1 L of fluids in the morning prior to caffeine intake. Also she should avoid any nicotine or marijuana. She should limit alcohol to a maximum of 1 alcoholic beverage on any given day. Further recommendations to follow next visit. Occasional palpitations noted, recent monitor in September did not show significant arrhythmia. She did have tachycardia up to 124 bpm. The longest tachycardia was for 4 minutes. Recommend continue to monitor symptoms and will will evaluate as stated above. Fatigue noted. Recommend rechecking thyroid function. Also, recommend checking a sleep study she states that prior sleep study ~10 years ago was borderline. Bradycardia noted, no syncopal events at this time. Obesity noted, recommend eating a heart healthy diet with regular exercise. We will discuss again at next visit. REVIEW OF SYSTEMS: Chest pain Yes Shortness of breath Yes Bleeding No Dizziness Yes Syncope No Palpations No 10 systems reviewed and are negative with the exception of pertinent positives described in HPI PHYSICAL EXAMINATION: BP 134/84 Pulse 68 Wt 110.7 kg (244 lb) LMP (LMP Unknown) SpO2 100% BMI 44.63 kg/m Gen: NAD HEENT: normocephalic, EOMI, no JVD, no carotid bruit Heart: regular rhythm, no significant murmur Lungs: clear to auscultation Abdomen: bowel sounds present Extremities: no edema Musculoskeletal: chest wall nontender Neurological: alert and oriented Psychiatric: appropriate and cooperative Skin: no rash, cellulitis or lesions appreciated CARDIOVASCULAR MEDICINE TESTING: I have personally reviewed ECG, outside report, and laboratory results ECG - 11/12/22 Normal sinus rhythm with sinus arrhythmia Normal ECG Holter monitor October 08 - October 11 outside report Interpretation there were 20 less than 1% PVCs and 26 less than 1% PACs. The average heart rate was 69. The heart rate ranged from 40 to 139 bpm. The RR range from 256 ms to 1708 ms. There were 59 sustained tachycardia episodes with total duration 64.4 minutes. The fastest tachycardia was 124 bpm. The longest tachycardia was 4 minutes. There were 400 sustained bradycardia episodes with total duration of 1405.8 or 33.5% minutes. The slowest bradycardia was 45 bpm. The longest bradycardia was 43 minutes. Sinus bradycardia to sinus tachycardia with sinus arrhythmia. Hemoglobin (g/dL) Date Value 11/12/2022 14.6 Hematocrit (%) Date Value 11/12/2022 41.3 WBC (k/uL) Date Value 11/12/2022 5.05 PAST MEDICAL HISTORY Diagnosis Date Generalized anxiety disorder Hypothyroidism No past surgical history on file. Social History Tobacco Use Smoking status: Former Types: Cigarettes Smokeless tobacco: Never Vaping Use Vaping Use: Former Substance Use Topics Alcohol use: Yes Drug use: Yes Types: Marijuana FAMILY HISTORY Problem Relation Age of Onset No Ocular Disease Father No Ocular Disease Mother No Ocular Disease Maternal Grandmother No Ocular Disease Maternal Grandfather No Ocular Disease Paternal Grandmother No Ocular Disease Paternal Grandfather ALLERGIES No Known Allergies CURRENT MEDICATIONS: cholecalciferol, vitamin D3, (VITAMIN D3 ORAL) Take by mouth. buPROPion XL (WELLBUTRIN XL) 300 mg 24 hr tablet Take 300 mg by mouth once daily. topiramate (TOPAMAX) 50 mg tablet Take 50 mg by mouth twice daily. MAGNESIUM ORAL Take by mouth. esomeprazole magnesium (NEXIUM ORAL) Take by mouth. soft lens adjunctive solutions (REWETTING DROPS OPHTHALMIC) Use in eyes. (Patient not taking: Reported on 11/11/2022) Signed: Aram Rogers DO, [facility] November 12, 2022 This note was partially generated using [employer] voice recognition system, and there may be some incorrect words, spellings, and punctuation that were not noted in checking the note before saving. documented in this encounter [facility] 11-12-2022 Note HNO ID: [id number] Author: RT Chris II(R) Service: Radiology Author Type: Technologist Type: Progress Notes Filed: 11/12/2022 9:17 AM Note Text: Radiology Service Progress Note PATIENT NAME: Case Abdi DATE OF SERVICE: November 12, 2022 TIME: 9:17 AM PATIENT IDENTITY VERIFICATION COMPLETED USING TWO (2) IDENTIFIERS: Name and Date of confirmed by patient verbally and Name and Date of confirmed by identification band. FALL SCREENING: Has the patient had 2 falls in the last year or 1 fall with injury or currently using an Ambulatory Assistive Device (Walker, Cane, Wheelchair, Crutches, etc.)? Emergency Room Patient: Screened in ED PATIENT GENDER DATA: Female. status: : No status: NO. PATIENT RELEVANT IMPLANT DATA REVIEWED: Not Applicable RADIOLOGY DEPARTMENT: General X-ray: Exam(s) Completed: Chest X-Ray PERIPHERAL IV DATA: Not applicable SIGNED BY: RT Chris II(R) November 12, 2022 9:17 AM [facility] 11-10-2022 Hospital Discharge instructions Patient Education 11/10/2022 18:47:15 Chest Wall Pain Chest Wall Pain Chest wall pain is pain in or around the bones and muscles of your chest. Sometimes, an injury causes this pain. Excessive coughing or overuse of arm and chest muscles may also cause chest wall pain. Sometimes, the cause may not be known. This pain may take several weeks or longer to get better. Follow these instructions at home: Managing pain, stiffness, and swelling If directed, put ice on the painful area: ?Put ice in a plastic bag. ?Place a towel between your skin and the bag. ?Leave the ice on for 20 minutes, 2 3 times per day. Activity Rest as told by your health care provider. Avoid activities that cause pain. These include any activities that use your chest muscles or your abdominal and side muscles to lift heavy items. Ask your health care provider what activities are safe for you. General instructions Take [id number] and prescription medicines only as told by your health care provider. Do not use any products that contain nicotine or tobacco, such as cigarettes, e-cigarettes, and chewing tobacco. These can delay healing after injury. If you need help quitting, ask your health care provider. Keep all follow-up visits as told by your health care provider. This is important. Contact a health care provider if: You have a fever. Your chest pain becomes worse. You have new symptoms. Get help right away if: You have nausea or vomiting. You feel sweaty or light-headed. You have a cough with mucus from your lungs (sputum) or you cough up blood. You develop shortness of breath. These symptoms may represent a serious problem that is an emergency. Do not wait to see if the symptoms will go away. Get medical help right away. Call your local emergency services (911 in the [place] Do not drive yourself to the hospital. Summary Chest wall pain is pain in or around the bones and muscles of your chest. Depending on the cause, it may be treated with ice, rest, medicines, and avoiding activities that cause pain. Contact a health care provider if you have a fever, worsening chest pain, or new symptoms. Get help right away if you feel light-headed or you develop shortness of breath. These symptoms may be an emergency. This information is not intended to replace advice given to you by your health care provider. Make sure you discuss any questions you have with your health care provider. Document Revised: 07/19/2021 Document Reviewed: 07/19/2021 [employer] Patient Education 2022 [employer]. Follow Up Care 11/10/2022 16:55:37 With:Vargas MALHOTRA Address: [address] [phone]- Business (1) When:11/13/2022 18:47:03 Comments:Call the office of your primary care doctor to arrange for follow-up within the above-stated timeframe. Follow-up with your primary care doctor about this ED visit. You should review your labs, imaging, and diagnoses from this ED visit with your primary care physician. If you were prescribed medications you should discuss possible side-effects and drug interactions with your pharmacist. Call 911 or go to the nearest Emergency Department if you develop any new or worsening symptoms. [facility] 10-28-2022 Note - chest discomfort s eems to be more described as palpitations - given she had stress test 2019 which was negative, for now we will do a cardiac event monitor if we do not find anything we will reconsider stress test. - She typically walks a few miles a day without any concern up until recently where she started to notice lightheadedness and palpitations [facility] 10-28-2022 Note - she feels although the symptoms she has been feeling are different no vagal bradycardic symptoms [facility] 10-28-2022 Note - pending what appea rs to not be as controlled as previous she has been having palpitations [facility] 10-14-2022 Note [facility] Consult Note Reason for visit: palpitations HPI: Case Abdi is a 32 y.o. year old with past medical history of Vagal autonomic bradycardia, hypothyroidism, insulin resistance, obesity. Last seen 05/2020 and was prescribed midodrine 2.5 mg 3 times daily for her symptoms of lightheadedness/dizziness. She is noted to have borderline ANTHONY almost 10 years ago and has since lost 44 pounds but has not had any repeat testing, does not use any sort of BiPAP/CPAP machine Usually walks 3 miles Last 2 months and last 3 weeks, has noticed during exercise lightheaded/chest pressure Holter monitor from January 08 through January 11 Interpretation there were 20 less than 1% PVCs and 26 less than 1% PACs. The average heart rate was 69. The heart rate ranged from 40 to 139 bpm. The RR range from 256 ms to 1708 ms. There were 59 sustained tachycardia episodes with total duration 64.4 minutes. The fastest tachycardia was 124 bpm. The longest tachycardia was 4 minutes. There were 400 sustained bradycardia episodes with total duration of 1405.8 or 33.5% minutes. The slowest bradycardia was 45 bpm. The longest bradycardia was 43 minutes. Sinus bradycardia to sinus tachycardia with sinus arrhythmia. ---- ----- 05/2020 per etienne MOSHER 29 yo female presents to clinic for routine follow-up She has known history of vagal autonomic bradycardia, lightheadedness and dizziness, hypothyroidism, insulin resistance, obesity. Had Covid in Nov and continues to have stomach upset and GI issues of which she becomes nauseated- no vomiting. Admits right upper quadrant of abdomen to lower chest across to left side with discomfort at times, states it is worse sometimes after eating and does not typically occur with exertion. Denies shortness of breath or orthopnea, leg swelling or weight gain. Denies fever chills, cough, shortness of breath or sore throat. Denies any syncopal episodes. checked 7yrs ago checked for ANTHONY and was borderline has lost 44# Treadmill stress test 03/12/2020- normal No ischemia noted, Hall score of 6- low risk probability Echo 01/30/2020 eft Ventricle: The left ventricle is normal size. Global left ventricular systolic function is normal. Left ventricular wall thickness is normal. No regional wall motion abnormality. Normal diastolic function. Right Ventricle: The right ventricle is normal in size. Normal right ventricular systolic function. Doppler studies suggest normal right sided pressures. Left Atrium: The left atrium is normal in size. IAS: No intracardiac shunt by agitated saline injections. Right Atrium: The right atrium is normal in size. Overall Conclusions: No significant valvular abnormalities PMH: Past Medical History: Diagnosis Date Diabetes mellitus (CMS/HCC) Hypothyroidism Vagal autonomic bradycardia PSH: Past Surgical History: Procedure Laterality Date SECTION, CLASSIC TONSILLECTOMY TUBAL LIGATION WISDOM TOOTH EXTRACTION SH: Social Determinants of Health Tobacco Use: Medium Risk Smoking Tobacco Use: Former Smokeless Tobacco Use: Never Passive Exposure: Not on file Alcohol Use: Not on file Financial Resource Strain: Not on file Food Insecurity: Not on file Transportation Needs: Not on file Physical Activity: Not on file Stress: Not on file Social Connections: Not on file Intimate Partner Violence: Not on file Depression: Not on file Housing Stability: Not on file Allergies: No Known Allergies Weight: 112kg Visit Vitals BP 128/61 (BP Location: Left arm, Patient Position: Sitting) Pulse 61 Ht 1.575 m (5' 2 ) Wt 112 kg (246 lb) SpO2 98% BMI 44.99 kg/m??? Smoking Status Former BSA 2.21 m??? Meds: No current outpatient medications on file prior to visit. No current facility-administered medications on file prior to visit. ROS: Cardio Basic Cardiovascular Symptoms: no lightheadedness, no leg edema, no syncope, no orthopnea, no PND, no claudication, Constitutional Constitutional: no fever, no night sweats, no significant weight gain, no significant weight loss, no exercise intolerance Eyes Eyes: no dry eyes, no irritation, no vision change ENMT Ears: no difficulty hearing, no ear pain Nose: no frequent nosebleeds, Mouth/Throat: no sore throat, no bleeding gums, no snoring, no dry mouth, no mouth ulcers, no oral abnormalities, no teeth problems Respiratory Respiratory: no cough, no wheezing, no coughing up blood, no sleep apnea Musculoskeletal Musculoskeletal: no muscle aches, no muscle weakness, joint pain+, no back pain, no swelling in the extremities Integumentary Skin no rash, no ulcer, no varicosities, no discoloration, no pruritus Neurologic Neurologic: no loss of consciousness, no weakness, no numbness, (more content not included)... [facility] 10-14-2022 Note Patient here c/o bra dycardia and chest pressure. She was last seen in May 2020 by cardiology. She walks 3 miles daily and has noticed some SOB with it the past few weeks. Says sometimes her HR is in the high 30's-low 40's. Denies syncope, but does get lightheaded and chest pain. Review of Systems Cardiovascular: Positive for chest pain, dyspnea on exertion and palpitations. Neurological: Positive for headaches and light-headedness. All other systems reviewed and are negative. [facility] 07-24-2022 Hospital Discharge instructions Patient Education 07/24/2022 13:44:46 Exercising to Lose Weight Exercising to Lose Weight Exercise is structured, repetitive physical activity to improve fitness and health. Getting regular exercise is important for everyone. It is especially important if you are overweight. Being overweight increases your risk of heart disease, stroke, diabetes, high blood pressure, and several types of cancer. Reducing your calorie intake and exercising can help you lose weight. Exercise is usually categorized as moderate or vigorous intensity. To lose weight, most people need to do a certain amount of moderate-intensity or vigorous-intensity exercise each week. Moderate-intensity exercise Moderate-intensity exercise is any activity that gets you moving enough to burn at least three times more energy (calories) than if you were sitting. Examples of moderate exercise include: Walking a mile in 15 minutes. Doing light yard work. Biking at an easy pace. Most people should get at least 150 minutes (2 hours and 30 minutes) a week of moderate-intensity exercise to maintain their body weight. Vigorous-intensity exercise Vigorous-intensity exercise is any activity that gets you moving enough to burn at least six times more calories than if you were sitting. When you exercise at this intensity, you should be working hard enough that you are not able to carry on a conversation. Examples of vigorous exercise include: Running. Playing a team sport, such as football, basketball, and soccer. Jumping rope. Most people should get at least 75 minutes (1 hour and 15 minutes) a week of vigorous-intensity exercise to maintain their body weight. How can exercise affect me? When you exercise enough to burn more calories than you eat, you lose weight. Exercise also reduces body fat and builds muscle. The more muscle you have, the more calories you burn. Exercise also: Improves mood. Reduces stress and tension. Improves your overall fitness, flexibility, and endurance. Increases bone strength. The amount of exercise you need to lose weight depends on: Your age. The type of exercise. Any health conditions you have. Your overall physical ability. Talk to your health care provider about how much exercise you need and what types of activities are safe for you. What actions can I take to lose weight? Nutrition Make changes to your diet as told by your health care provider or diet and nutritional health coach (dietitian). This may include: ?Eating fewer calories. ?Eating more protein. ?Eating less unhealthy fats. ?Eating a diet that includes fresh fruits and vegetables, whole grains, low-fat dairy products, and lean protein. ?Avoiding foods with added fat, salt, and sugar. Drink plenty of water while you exercise to prevent dehydration or heat stroke. Activity Choose an activity that you enjoy and set realistic goals. Your health care provider can help you make an exercise plan that works for you. Exercise at a moderate or vigorous intensity most days of the week. ?The intensity of exercise may vary from person to person. You can tell how intense a workout is for you by paying attention to your breathing and heartbeat. Most people will notice their breathing and heartbeat get faster with more intense exercise. Do resistance training twice each week, such as: ?Push-ups. ?Sit-ups. ?Lifting weights. ?Using resistance bands. Getting short amounts of exercise can be just as helpful as long structured periods of exercise. If you have trouble finding time to exercise, try to include exercise in your daily routine. ?Get up, stretch, and walk around every 30 minutes throughout the day. ?Go for a walk during your lunch break. ?Park your car farther away from your destination. ?If you take public transportation, get off one stop early and walk the rest of the way. ?Make phone calls while standing up and walking around. ?Take the stairs instead of elevators or escalators. Wear comfortable clothes and shoes with good support. Do not exercise so much that you hurt yourself, feel dizzy, or get very short of breath. Where to find more information [place] Department of Health and Human Services: www.hhs.gov Centers for Disease Control and Prevention (CDC): www.cdc.gov Contact a health care provider: Before starting a new exercise program. If you have questions or concerns about your weight. If you have a medical problem that keeps you from exercising. Get help right away if you have any of the following while exercising: Injury. Dizziness. Difficulty breathing or shortness of breath that does not go away when you stop exercising. Chest pain. Rapid heartbeat. Summary Being overweight increases your risk of heart disease, stroke, diabetes, high blood pressure, and several types of cancer. Losing weight happens when you burn more calories than you eat. Reducing the amount of calories you eat in addition to getting regular moderate or vigorous exercise each week helps you lose weight. This information is not intended to replace advice given to you by your health care provider. Make sure you discuss any questions you have with your health care provider. Document Released: 06/06/2011 Document Revised: 05/17/2018 Document Reviewed: 05/17/2018 [employer] Patient Education 2020 [employer] 07/24/2022 13:44:45 Budget-Friendly Healthy Eating Budget-Friendly Healthy Eating There are many ways to save money at the grocery store and continue to eat healthy. You can be successful if you: Plan meals according to your budget. Make a grocery list and only purchase food according to your grocery list. Prepare food yourself. What are tips for following this plan? Reading food labels Compare food labels between brand name foods and the store brand. Often the nutritional value is the same, but the store brand is lower cost. Look for products that do not have added sugar, fat, or salt (sodium). These often cost the same but are healthier for you. Products may be labeled as: ?Sugar-free. ?Nonfat. ?Low-fat. ?Sodium-free. ?Low-sodium. Look for lean ground beef labeled as at least 92% lean and 8% fat. Shopping Buy only the items on your grocery list and go only to the areas of the store that have the items on your list. Use coupons only for foods and brands you normally buy. Avoid buying items you wouldn't normally buy simply because they are on sale. Check online and in newspapers for weekly deals. Buy healthy items from the bulk bins when available, such as herbs, spices, flour, pasta, nuts, and dried fruit. Buy fruits and vegetables that are in season. Prices are usually lower on in-season produce. Look at the unit aceves on the aceves tag. Use it to compare different brands and sizes to find out which item is the best deal. Choose healthy items that are often low-cost, such as carrots, potatoes, apples, bananas, and oranges. Dried or canned beans are a low-cost protein source. Buy in bulk and freeze extra food. Items you can buy in bulk include meats, fish, poultry, frozen fruits, and frozen vegetables. Avoid buying wrqlv-sz-kqj foods, such as pre-cut fruits and vegetables and pre-made salads. If possible, shop around to discover where you can find the best prices. Consider other retailers such as [employer] stores, [employer] stores, local fruit and vegetable [employer], and [employer] markets. Do not shop when you are hungry. If you shop while hungry, it may be hard to stick to your list and budget. Resist impulse buying. Use your grocery list as your official plan for the week. Buy a variety of vegetables and fruits by purchasing fresh, frozen, and canned items. Look at the top and bottom shelves for deals. Foods at eye level (eye level of an adult or child) are usually more expensive. Be efficient with your time when shopping. The more time you spend at the store, the more money you are likely to spend. To save money when choosing more expensive foods like meats and dairy: ?Choose cheaper cuts of meat, such as bone-in chicken thighs and drumsticks instead of skinless and boneless chicken. When you are ready to prepare the chicken, you can remove the skin yourself to make it healthier. ?Choose lean meats like chicken or turkey instead of beef. ?Choose canned seafood, such as tuna, salmon, or sardines. ?Buy eggs as a low-cost source of protein. ?Buy dried beans and peas, such as lentils, split peas, or kidney beans instead of meats. Dried beans and peas are a good alternative source of protein. ?Buy the larger tubs of yogurt instead of individual-sized containers. Choose water instead of sodas and other sweetened beverages. Avoid buying chips, cookies, and other junk food. These items are usually expensive and not healthy. Cooking Make extra food and freeze the extras in meal-sized containers or in individual portions for fast meals and snacks. Pre-cook on days when you have extra time to prepare meals in advance. You can keep these meals in the fridge or freezer and reheat for a quick meal. When you come home from the grocery store, wash, peel, and cut fruits and vegetables so they are ready to use and eat. This will help reduce food waste. Meal planning Do not eat out or get fast food. Prepare food at home. Make a grocery list and make sure to bring it with you to the store. If you have a smart phone, you could use your phone to create your shopping list. Plan meals and snacks according to a grocery list and budget you create. Use leftovers in your meal plan for the week. Look for recipes where you can cook once and make enough food for two meals. Include budget-friendly meals like stews, casseroles, and stir-brown dishes. Try some meatless meals or try no cook meals like salads. Make sure that half your plate is filled with fruits or vegetables. Choose from fresh, frozen, or canned fruits and vegetables. If eating canned, remember to rinse them before eating. This will remove any excess salt added for packaging. Summary Eating healthy on a budget is possible if you plan your meals according to your budget, purchase according to your budget and grocery list, and prepare food yourself. Tips for buying more food on a limited budget include buying generic brands, using coupons only for foods you normally buy, and buying healthy items from the bulk bins when available. Tips for buying cheaper food to replace expensive food include choosing cheaper, lean cuts of meat, and buying dried beans and peas. This information is not intended to replace advice given to you by your health care provider. Make sure you discuss any questions you have with your health care provider. Document Released: 01/05/2015 Document Revised: 05/05/2018 Document Reviewed: 05/05/2018 [employer] Patient Education 2020 [employer] 07/24/2022 13:44:42 BMI for Adults BMI for Adults Body mass index (BMI) is a number that is calculated from a person's weight and height. BMI may help to estimate how much of a person's weight is composed of fat. BMI can help identify those who may be at higher risk for certain medical problems. How is BMI used with adults? BMI is used as a screening tool to identify possible weight problems. It is used to check whether a person is obese, overweight, healthy weight, or underweight. How is BMI calculated? BMI measures your weight and compares it to your height. This can be done either in [place] or metric measurements. Note that charts are available to help you find your BMI quickly and easily without having to do these calculations yourself. To calculate your BMI in [place] measurements, your health care provider will: 1.Measure your weight in pounds (lb). 2.Multiply the number of pounds by 703. For example, for a person who weighs 180 lb, multiply that number by 703, which equals 126,540. 3.Measure your height in inches (in). Then multiply that number by itself to get a measurement called inches squared. For example, for a person who is 70 in tall, the inches squared measurement is 70 in x 70 in, which equals 4900 inches squared. 4.Divide the total from Step 2 (number of lb x 703) by the total from Step 3 (inches squared): 126,540 4900 = 25.8. This is your BMI. To calculate your BMI in metric measurements, your health care provider will: 1.Measure your weight in kilograms (kg). 2.Measure your height in meters (m). Then multiply that number by itself to get a measurement called meters squared. For example, for a person who is 1.75 m tall, the meters squared measurement is 1.75 m x 1.75 m, which is equal to 3.1 meters squared. 3.Divide the number of kilograms (your weight) by the meters squared number. In this example: 70 3.1 = 22.6. This is your BMI. How is BMI interpreted? To interpret your results, your health care provider will use BMI charts to identify whether you are underweight, normal weight, overweight, or obese. The following guidelines will be used: Underweight: BMI less than 18.5. Normal weight: BMI between 18.5 and 24.9. Overweight: BMI between 25 and 29.9. Obese: BMI of 30 and above. Please note: Weight includes both fat and muscle, so someone with a muscular build, such as an athlete, may have a BMI that is higher than 24.9. In cases like these, BMI is not an accurate measure of body fat. To determine if excess body fat is the cause of a BMI of 25 or higher, further assessments may need to be done by a health care provider. BMI is usually interpreted in the same way for men and women. Why is BMI a useful tool? BMI is useful in two ways: Identifying a weight problem that may be related to a medical condition, or that may increase the risk for medical problems. Promoting lifestyle and diet changes in order to reach a healthy weight. Summary Body mass index (BMI) is a number that is calculated from a person's weight and height. BMI may help to estimate how much of a person's weight is composed of fat. BMI can help identify those who may be at higher risk for certain medical problems. BMI can be measured using [place] measurements or metric measurements. To interpret your results, your health care provider will use BMI charts to identify whether you are underweight, normal weight, overweight, or obese. This information is not intended to replace advice given to you by your health care provider. Make sure you discuss any questions you have with your health care provider. Document Released: 01/13/2005 Document Revised: 04/16/2018 Document Reviewed: 03/17/2018 [employer] Patient Education 2020 [employer]. 07/24/2022 13:44:40 Diarrhea, Adult Diarrhea, Adult Diarrhea is frequent loose and watery bowel movements. Diarrhea can make you feel weak and cause you to become dehydrated. Dehydration can make you tired and thirsty, cause you to have a dry mouth, and decrease how often you urinate. Diarrhea typically lasts 2 3 days. However, it can last longer if it is a sign of something more serious. It is important to treat your diarrhea as told by your health care provider. Follow these instructions at home: Eating and drinking Follow these recommendations as told by your health care provider: Take an oral rehydration solution (ORS). This is an hlbm-hgv-hztbajg medicine that helps return your body to its normal balance of nutrients and water. It is found at pharmacies and retail stores. Drink plenty of fluids, such as water, ice chips, diluted fruit juice, and low-calorie sports drinks. You can drink milk also, if desired. Avoid drinking fluids that contain a lot of sugar or caffeine, such as energy drinks, sports drinks, and soda. Eat bland, sbtj-iy-sgwlnk foods in small amounts as you are able. These foods include bananas, applesauce, rice, lean meats, toast, and crackers. Avoid alcohol. Avoid spicy or fatty foods. Medicines Take rdwl-syf-imvgjjl and prescription medicines only as told by your health care provider. If you were prescribed an antibiotic medicine, take it as told by your health care provider. Do not stop using the antibiotic even if you start to feel better. General instructions Wash your hands often using soap and water. If soap and water are not available, use a hand telegraph equipment maintainer. Others in the household should wash their hands as well. Hands should be washed: ?After using the toilet or changing a diaper. ?Before preparing, cooking, or serving food. ?While caring for a sick person or while visiting someone in a hospital. Drink enough fluid to keep your urine pale yellow. Rest at home while you recover. Watch your condition for any changes. Take a warm bath to relieve any burning or pain from frequent diarrhea episodes. Keep all follow-up visits as told by your health care provider. This is important. Contact a health care provider if: You have a fever. Your diarrhea gets worse. You have new symptoms. You cannot keep fluids down. You feel light-headed or dizzy. You have a headache. You have muscle cramps. Get help right away if: You have chest pain. You feel extremely weak or you faint. You have bloody or black stools or stools that look like tar. You have severe pain, cramping, or bloating in your abdomen. You have trouble breathing or you are breathing very quickly. Your heart is beating very quickly. Your skin feels cold and clammy. You feel confused. You have signs of dehydration, such as: ?Dark urine, very little urine, or no urine. ?Cracked lips. ?Dry mouth. ?Sunken eyes. ?Sleepiness. ?Weakness. Summary Diarrhea is frequent loose and watery bowel movements. Diarrhea can make you feel weak and cause you to become dehydrated. Drink enough fluids to keep your urine pale yellow. Make sure that you wash your hands after using the toilet. If soap and water are not available, use hand telegraph equipment maintainer. Contact a health care provider if your diarrhea gets worse or you have new symptoms. Get help right away if you have signs of dehydration. This information is not intended to replace advice given to you by your health care provider. Make sure you discuss any questions you have with your health care provider. Document Released: 04/24/2003 Document Revised: 09/20/2019 Document Reviewed: 10/08/2018 [employer] Patient Education 2020 [employer]. 07/24/2022 13:44:34 Abdominal Bloating Abdominal Bloating When you have abdominal bloating, your abdomen may feel full, tight, or painful. It may also look bigger than normal or swollen (distended). Common causes of abdominal bloating include: Swallowing air. Constipation. Problems digesting food. Eating too much. Irritable bowel syndrome. This is a condition that affects the large intestine. Lactose intolerance. This is an inability to digest lactose, a natural sugar in dairy products. Celiac disease. This is a condition that affects the ability to digest gluten, a protein found in some grains. Gastroparesis. This is a condition that slows down the movement of food in the stomach and small intestine. It is more common in people with diabetes mellitus. Gastroesophageal reflux disease (GERD). This is a digestive condition that makes stomach acid flow back into the esophagus. Urinary retention. This means that the body is holding onto urine, and the bladder cannot be emptied all the way. Follow these instructions at home: Eating and drinking Avoid eating too much. Try not to swallow air while talking or eating. Avoid eating while lying down. Avoid these foods and drinks: ?Foods that cause gas, such as broccoli, cabbage, cauliflower, and baked beans. ?Carbonated drinks. ?Hard candy. ?Chewing gum. Medicines Take iiwx-qgg-eupyick and prescription medicines only as told by your health care provider. Take probiotic medicines. These medicines contain live bacteria or yeasts that can help digestion. Take coated peppermint oil capsules. Activity Try to exercise regularly. Exercise may help to relieve bloating that is caused by gas and relieve constipation. General instructions Keep all follow-up visits as told by your health care provider. This is important. Contact a health care provider if: You have nausea and vomiting. You have diarrhea. You have abdominal pain. You have unusual weight loss or weight gain. You have severe pain, and medicines do not help. Get help right away if: You have severe chest pain. You have trouble breathing. You have shortness of breath. You have trouble urinating. You have darker urine than normal. You have blood in your stools or have dark, tarry stools. Summary Abdominal bloating means that the abdomen is swollen. Common causes of abdominal bloating are swallowing air, constipation, and problems digesting food. Avoid eating too much and avoid swallowing air. Avoid foods that cause gas, carbonated drinks, hard candy, and chewing gum. This information is not intended to replace advice given to you by your health care provider. Make sure you discuss any questions you have with your health care provider. Document Released: 06/05/2017 Document Revised: 08/22/2019 Document Reviewed: 06/05/2017 [employer] Patient Education 2019 [employer]. 07/24/2022 13:44:32 Hypothyroidism Hypothyroidism Hypothyroidism is when the thyroid gland does not make enough of certain hormones (it is underactive). The thyroid gland is a small gland located in the lower front part of the neck, just in front of the windpipe (trachea). This gland makes hormones that help control how the body uses food for energy (metabolism) as well as how the heart and brain function. These hormones also play a role in keeping your bones strong. When the thyroid is underactive, it produces too little of the hormones thyroxine (T4) and triiodothyronine (T3). What are the causes? This condition may be caused by: Oanh's disease. This is a disease in which the body's disease-fighting system (immune system) attacks the thyroid gland. This is the most common cause. Viral infections. . Certain medicines. defects. Past radiation treatments to the head or neck for cancer. Past treatment with radioactive iodine. Past exposure to radiation in the environment. Past surgical removal of part or all of the thyroid. Problems with a gland in the center of the brain (pituitary gland). Lack of enough iodine in the diet. What increases the risk? You are more likely to develop this condition if: You are female. You have a family history of thyroid conditions. You use a medicine called lithium. You take medicines that affect the immune system (immunosuppressants). What are the signs or symptoms? Symptoms of this condition include: Feeling as though you have no energy (lethargy). Not being able to tolerate cold. Weight gain that is not explained by a change in diet or exercise habits. Lack of appetite. Dry skin. Coarse hair. Menstrual irregularity. Slowing of thought processes. Constipation. Sadness or depression. How is this diagnosed? This condition may be diagnosed based on: Your symptoms, your medical history, and a physical exam. Blood tests. You may also have imaging tests, such as an ultrasound or MRI. How is this treated? This condition is treated with medicine that replaces the thyroid hormones that your body does not make. After you begin treatment, it may take several weeks for symptoms to go away. Follow these instructions at home: Take sdwf-fkf-[id number] and prescription medicines only as told by your health care provider. If you start taking any new medicines, tell your health care provider. Keep all follow-up visits as told by your health care provider. This is important. ?As your condition improves, your dosage of thyroid hormone medicine may change. ?You will need to have blood tests regularly so that your health care provider can monitor your condition. Contact a health care provider if: Your symptoms do not get better with treatment. You are taking thyroid replacement medicine and you: ?Sweat a lot. ?Have tremors. ?Feel anxious. ?Lose weight rapidly. ?Cannot tolerate heat. ?Have emotional swings. ?Have diarrhea. ?Feel weak. Get help right away if you have: Chest pain. An irregular heartbeat. A rapid heartbeat. Difficulty breathing. Summary Hypothyroidism is when the thyroid gland does not make enough of certain hormones (it is underactive). When the thyroid is underactive, it produces too little of the hormones thyroxine (T4) and triiodothyronine (T3). The most common cause is Oanh's disease, a disease in which the body's disease-fighting system (immune system) attacks the thyroid gland. The condition can also be caused by viral infections, medicine, , or past radiation treatment to the head or neck. Symptoms may include weight gain, dry skin, constipation, feeling as though you do not have energy, and not being able to tolerate cold. This condition is treated with medicine to replace the thyroid hormones that your body does not make. This information is not intended to replace advice given to you by your health care provider. Make sure you discuss any questions you have with your health care provider. Document Released: 05/04/2006 Document Revised: 04/16/2018 Document Reviewed: 04/14/2018 [employer] Patient Education 2020 [employer]. Follow Up Care 07/14/2022 08:34:59 With:Vargas MALHOTRA DO, FAM Address: [address] [place] [address]- When: Unknown [facility] [place] 07-04-2022 History of Present illness Narrative ASSESSMENT/PLAN: 1. Myopia of both eyes with astigmatism - ICD9: 367.1, 367.20, ICD10: H52.13, H52.203 (primary diagnosis) Remake prescription Patient likes manifest refraction better than glasses Change from polycarbonate to plastic or trivex Return to clinic: 1 year full exam Tierra Rojas, OD I have confirmed and edited as necessary the relevant HPI, ophthalmic history, ROS, and the neuro exam findings as obtained by others. I have seen and examined this patient. I have discussed the case and the management of this patient's care with the Resident/Fellow, if applicable. I also have reviewed and agree with the assessment and plan as stated above and agree with all of its relevant components. Tierra Rojas, DINH July 04, 2022 12:27 PM documented in this encounter [facility] 06-25-2022 History of Present illness Narrative ASSESSMENT/PLAN: 1. Myopia, bilateral - ICD9: 367.1, ICD10: H52.13 (primary diagnosis) New glasses Slight change but may help with eyestrain 2. Wears contact lenses - ICD9: V41.0, ICD10: Z97.3 Small change Discussed can do same both eyes or slight increase left eye Patient would like both eyes same Return to clinic: 1 year contact lens exam Tierra Rojas, OD I have confirmed and edited as necessary the relevant HPI, ophthalmic history, ROS, and the neuro exam findings as obtained by others. I have seen and examined this patient. I have discussed the case and the management of this patient's care with the Resident/Fellow, if applicable. I also have reviewed and agree with the assessment and plan as stated above and agree with all of its relevant components. Tierra Rojas, DINH June 25, 2022 12:07 PM documented in this encounter [facility] 12-20-2021 Evaluation + Plan note Future Scheduled TestsTSH With T4fr Reflex 12/20/21Comprehensive Metabolic Panel 12/20/21Iron Level 12/19/21Lipid Panel 12/20/21T3 Free 12/20/21 [facility] Evaluation + Plan note [facility] Evaluation note Diagnosis Myopia, bilateral- Primary Myopia Wears contact lenses Problems with sight [facility] Diagnosis Myopia of both eyes with astigmatism- Primary [facility]* Diagnosis SOB (shortness of breath)- Primary Shortness of breath Chest pain, unspecified type Palpitations Other fatigue Sinus bradycardia Other specified cardiac dysrhythmias Class 3 severe obesity due to excess calories with serious comorbidity and body mass index (BMI) of 40.0 to 44.9 in adult ([facility]) [facility]* Diagnosis SOB (shortness of breath)- Primary Shortness of breath Abnormal stress test Other nonspecific abnormal cardiovascular system function study [facility]* Diagnosis Obesity, Class III, BMI >= 40- Primary Morbid obesity Precordial pain Labile hypertension Unspecified essential hypertension Migraine without aura and with status migrainosus, not intractable Migraine without aura, without mention of intractable migraine with status migrainosus documented in this encounter [facility] note* Diagnosis SOB (shortness of breath) Shortness of breath Abnormal stress test Other nonspecific abnormal cardiovascular system function study documented in this encounter [facility] noteNo assessment information availableA[facility] Work Phone: Evaluation note* Diagnosis Gastroesophageal reflux disease, unspecified whether esophagitis present- Primary Dyspepsia and disorder of function of stomach Dyspepsia and other specified disorders of function of stomach Irritable bowel syndrome with diarrhea Irritable bowel syndrome RUQ pain Abdominal pain, right upper quadrant documented in this encounter [facility] note* Diagnosis Pre-op evaluation- Primary Preoperative examination, unspecified Hypothyroidism, unspecified type Other specified diabetes mellitus without complication, without long-term current use of insulin ([facility]) Obesity, Class III, BMI >= 40 Morbid obesity Gastroesophageal reflux disease, unspecified whether esophagitis present Other migraine without status migrainosus, not intractable History of sleep apnea Personal history of other specified diseases Electronic cigarette use Iron deficiency Iron deficiency anemia, unspecified Atypical chest pain Other chest pain documented in this encounter [facility] note* Diagnosis SOB (shortness of breath)- Primary Shortness of breath Chest pain, unspecified type Abnormal stress test Other nonspecific abnormal cardiovascular system function study Premature atrial complexes Supraventricular premature beats Abnormal electrocardiogram Nonspecific abnormal electrocardiogram (ECG) (EKG) Abnormal laboratory test result Other abnormal clinical finding Sinus bradycardia Other specified cardiac dysrhythmias Class 3 severe obesity due to excess calories with serious comorbidity and body mass index (BMI) of 40.0 to 44.9 in adult ([facility]) History of sleep apnea Personal history of other specified diseases [facility] Diagnosis Dyspepsia and disorder of function of stomach Dyspepsia and other specified disorders of function of stomach RUQ pain Abdominal pain, right upper quadrant [facility] Diagnosis Paresthesia of skin- Primary Disturbance of skin sensation Chronic nonintractable headache, unspecified headache type Episodic lightheadedness Dizziness and giddiness IIH (idiopathic intracranial hypertension) Benign intracranial hypertension Sweating abnormality Other specified disorder of sweat glands Early satiety [facility] Diagnosis Chronic neck pain- Primary Cervicalgia Chronic bilateral thoracic back pain [facility] Diagnosis Gastroesophageal reflux disease with esophagitis without hemorrhage- Primary Irritable bowel syndrome with both constipation and diarrhea IIH (idiopathic intracranial hypertension)- Primary Benign intracranial hypertension [facility]* Diagnosis Crowded optic disc, bilateral- Primary Chronic nonintractable headache, unspecified headache type [facility]* Diagnosis Chronic neck pain Cervicalgia Chronic bilateral thoracic back pain [facility]* Diagnosis Class 3 severe obesity due to excess calories with serious comorbidity and body mass index (BMI) of 50.0 to 59.9 in adult ([facility])- Primary ANTHONY (obstructive sleep apnea) Obstructive sleep apnea (adult) (pediatric) [facility]* Diagnosis Class 3 severe obesity due to excess calories with serious comorbidity and body mass index (BMI) of 50.0 to 59.9 in adult ([facility])- Primary ANTHONY (obstructive sleep apnea) Obstructive sleep apnea (adult) (pediatric) [facility] Diagnosis Chronic neck pain- Primary Cervicalgia Chronic bilateral thoracic back pain [facility] Diagnosis Chronic migraine without aura, intractable, without status migrainosus- Primary [facility] Diagnosis Gastroesophageal reflux disease without esophagitis- Primary Esophageal reflux [facility]* Diagnosis Sensation of pressure in bladder area- Primary Other specified disorders of bladder documented in this encounter [facility] note* Diagnosis Irritable bowel syndrome with diarrhea- Primary Irritable bowel syndrome Generalized abdominal pain Abdominal pain, generalized Gastroesophageal reflux disease with esophagitis without hemorrhage Autoimmune disease ([facility]) Autoimmune disease, not elsewhere classified documented in this encounter [facility] note* Diagnosis Positive GUILLE (antinuclear antibody)- Primary Other and unspecified nonspecific immunological findings Autoimmune disease ([facility]) Autoimmune disease, not elsewhere classified Arthralgia, unspecified joint Malaise and fatigue Other malaise and fatigue Polymyalgia ([facility]) Polymyalgia rheumatica Polyarthralgia Pain in joint, multiple sites Class 3 severe obesity due to excess calories with serious comorbidity and body mass index (BMI) of 50.0 to 59.9 in adult ([facility]) Right knee pain, unspecified chronicity documented in this encounter [facility] note* Diagnosis Generalized abdominal pain Abdominal pain, generalized documented in this encounter [facility] note* Diagnosis Pelvic pain in female- Primary Unspecified symptom associated with female genital organs IUD (intrauterine device) in place Presence of intrauterine contraceptive device Vaginal discharge Leukorrhea, not specified as infective documented in this encounter [facility] note* Diagnosis Class 3 severe obesity due to excess calories with serious comorbidity and body mass index (BMI) of 50.0 to 59.9 in adult ([facility])- Primary documented in this encounter [facility] note* Diagnosis Pre-op evaluation- Primary Preoperative examination, unspecified Hypothyroidism, unspecified type Other specified diabetes mellitus without complication, without long-term current use of insulin ([facility]) Obesity, Class III, BMI >= 40 Morbid obesity Gastroesophageal reflux disease, unspecified whether esophagitis present Other migraine without status migrainosus, not intractable History of sleep apnea Personal history of other specified diseases Electronic cigarette use Iron deficiency Iron deficiency anemia, unspecified Atypical chest pain Other chest pain Pelvic pain in female Unspecified symptom associated with female genital organs IUD (intrauterine device) in place Presence of intrauterine contraceptive device documented in this encounter [facility] note* Diagnosis Pre-op evaluation- Primary Preoperative examination, unspecified Hypothyroidism, unspecified type Other specified diabetes mellitus without complication, without long-term current use of insulin ([facility]) Obesity, Class III, BMI >= 40 Morbid obesity Gastroesophageal reflux disease, unspecified whether esophagitis present Other migraine without status migrainosus, not intractable History of sleep apnea Personal history of other specified diseases Electronic cigarette use Iron deficiency Iron deficiency anemia, unspecified Atypical chest pain Other chest pain Pelvic pain in female- Primary Unspecified symptom associated with female genital organs [facility] Diagnosis Pre-op evaluation- Primary Preoperative examination, unspecified Hypothyroidism, unspecified type Other specified diabetes mellitus without complication, without long-term current use of insulin (HCC) Obesity, Class III, BMI >= 40 Morbid obesity Gastroesophageal reflux disease, unspecified whether esophagitis present Other migraine without status migrainosus, not intractable History of sleep apnea Personal history of other specified diseases Electronic cigarette use Iron deficiency Iron deficiency anemia, unspecified Atypical chest pain Other chest pain Shortness of breath- Primary Pleurisy Pleurisy without mention of effusion or current tuberculosis Dye antibody positive Other and unspecified nonspecific immunological findings Malaise and fatigue Other malaise and fatigue Positive GUILLE (antinuclear antibody) Other and unspecified nonspecific immunological findings Polymyalgia (HCC) Polymyalgia rheumatica Pain in joint, multiple sites documented in this encounter [facility] note* Diagnosis Pre-op evaluation- Primary Preoperative examination, unspecified Hypothyroidism, unspecified type Other specified diabetes mellitus without complication, without long-term current use of insulin ([facility]) Obesity, Class III, BMI >= 40 Morbid obesity Gastroesophageal reflux disease, unspecified whether esophagitis present Other migraine without status migrainosus, not intractable History of sleep apnea Personal history of other specified diseases Electronic cigarette use Iron deficiency Iron deficiency anemia, unspecified Atypical chest pain Other chest pain Polymyalgia (HCC)- Primary Polymyalgia rheumatica Shortness of breath Pleurisy Pleurisy without mention of effusion or current tuberculosis Dye antibody positive Other and unspecified nonspecific immunological findings Malaise and fatigue Other malaise and fatigue IIH (idiopathic intracranial hypertension)- Primary Benign intracranial hypertension [facility]* Diagnosis Pre-op evaluation- Primary Preoperative examination, unspecified Hypothyroidism, unspecified type Other specified diabetes mellitus without complication, without long-term current use of insulin (HCC) Obesity, Class III, BMI >= 40 Morbid obesity Gastroesophageal reflux disease, unspecified whether esophagitis present Other migraine without status migrainosus, not intractable History of sleep apnea Personal history of other specified diseases Electronic cigarette use Iron deficiency Iron deficiency anemia, unspecified Atypical chest pain Other chest pain Pelvic pain in female- Primary Unspecified symptom associated with female genital organs Hydrosalpinx Chronic salpingitis and oophoritis IIH (idiopathic intracranial hypertension)- Primary Benign intracranial hypertension documented in this encounter [facility] note* Diagnosis Pre-op evaluation- Primary Preoperative examination, unspecified Hypothyroidism, unspecified type Other specified diabetes mellitus without complication, without long-term current use of insulin (HCC) Obesity, Class III, BMI >= 40 Morbid obesity Gastroesophageal reflux disease, unspecified whether esophagitis present Other migraine without status migrainosus, not intractable History of sleep apnea Personal history of other specified diseases Electronic cigarette use Iron deficiency Iron deficiency anemia, unspecified Atypical chest pain Other chest pain IIH (idiopathic intracranial hypertension)- Primary Benign intracranial hypertension Myopia of both eyes with astigmatism documented in this encounter [facility] note* Diagnosis Pre-op evaluation- Primary Preoperative examination, unspecified Hypothyroidism, unspecified type Other specified diabetes mellitus without complication, without long-term current use of insulin (HCC) Obesity, Class III, BMI >= 40 Morbid obesity Gastroesophageal reflux disease, unspecified whether esophagitis present Other migraine without status migrainosus, not intractable History of sleep apnea Personal history of other specified diseases Electronic cigarette use Iron deficiency Iron deficiency anemia, unspecified Atypical chest pain Other chest pain Chronic migraine without aura, intractable, without status migrainosus- Primary documented in this encounter [facility] note* Diagnosis Pre-op evaluation- Primary Preoperative examination, unspecified Hypothyroidism, unspecified type Other specified diabetes mellitus without complication, without long-term current use of insulin (HCC) Obesity, Class III, BMI >= 40 Morbid obesity Gastroesophageal reflux disease, unspecified whether esophagitis present Other migraine without status migrainosus, not intractable History of sleep apnea Personal history of other specified diseases Electronic cigarette use Iron deficiency Iron deficiency anemia, unspecified Atypical chest pain Other chest pain Complex tear of medial meniscus of right knee as current injury, initial encounter- Primary Primary osteoarthritis of right knee Primary localized osteoarthrosis, lower leg documented in this encounter [facility] note* Diagnosis Pre-op evaluation- Primary Preoperative examination, unspecified Hypothyroidism, unspecified type Other specified diabetes mellitus without complication, without long-term current use of insulin (HCC) Obesity, Class III, BMI >= 40 Morbid obesity Gastroesophageal reflux disease, unspecified whether esophagitis present Other migraine without status migrainosus, not intractable History of sleep apnea Personal history of other specified diseases Electronic cigarette use Iron deficiency Iron deficiency anemia, unspecified Atypical chest pain Other chest pain Encounter for gynecological examination without abnormal finding- Primary Routine gynecological examination Intrauterine contraceptive device threads lost, subsequent encounter [facility]* Diagnosis Pre-op evaluation- Primary Preoperative examination, unspecified Hypothyroidism, unspecified type Other specified diabetes mellitus without complication, without long-term current use of insulin (HCC) Obesity, Class III, BMI >= 40 Morbid obesity Gastroesophageal reflux disease, unspecified whether esophagitis present Other migraine without status migrainosus, not intractable History of sleep apnea Personal history of other specified diseases Electronic cigarette use Iron deficiency Iron deficiency anemia, unspecified Atypical chest pain Other chest pain Pre-operative cardiovascular examination- Primary Atypical chest pain Other chest pain documented in this encounter [facility] note* Diagnosis Pre-op evaluation- Primary Preoperative examination, unspecified Hypothyroidism, unspecified type Other specified diabetes mellitus without complication, without long-term current use of insulin ([facility]) Obesity, Class III, BMI >= 40 Morbid obesity Gastroesophageal reflux disease, unspecified whether esophagitis present Other migraine without status migrainosus, not intractable History of sleep apnea Personal history of other specified diseases Electronic cigarette use Iron deficiency Iron deficiency anemia, unspecified Atypical chest pain Other chest pain Dye antibody positive- Primary Other and unspecified nonspecific immunological findings Malaise and fatigue Other malaise and fatigue Polymyalgia (HCC) Polymyalgia rheumatica Pain in joint, multiple sites documented in this encounter [facility] note* Diagnosis Pre-op evaluation- Primary Preoperative examination, unspecified Hypothyroidism, unspecified type Other specified diabetes mellitus without complication, without long-term current use of insulin (HCC) Obesity, Class III, BMI >= 40 Morbid obesity Gastroesophageal reflux disease, unspecified whether esophagitis present Other migraine without status migrainosus, not intractable History of sleep apnea Personal history of other specified diseases Electronic cigarette use Iron deficiency Iron deficiency anemia, unspecified Atypical chest pain Other chest pain IIH (idiopathic intracranial hypertension) Benign intracranial hypertension Pulsatile tinnitus, right ear documented in this encounter [facility] note* Diagnosis Acute medial meniscus tear of right knee, subsequent encounter- Primary Primary osteoarthritis of right knee Primary localized osteoarthrosis, lower leg Acute medial meniscus tear of right knee Tear of medial cartilage or meniscus of knee, current documented in this encounter [facility] note* Diagnosis Dysuria [facility]* Diagnosis Acute cystitis with hematuria- Primary Acute cystitis documented in this encounter [facility]* Diagnosis Pre-op evaluation- Primary Preoperative examination, unspecified Hypothyroidism, unspecified type Other specified diabetes mellitus without complication, without long-term current use of insulin ([facility]) Obesity, Class III, BMI >= 40 Morbid obesity Gastroesophageal reflux disease, unspecified whether esophagitis present Other migraine without status migrainosus, not intractable History of sleep apnea Personal history of other specified diseases Electronic cigarette use Iron deficiency Iron deficiency anemia, unspecified Atypical chest pain Other chest pain Chronic daily headache- Primary Headache Intractable chronic migraine without aura and without status migrainosus Chronic migraine without aura, with intractable migraine, so stated, without mention of status migrainosus Chronic migraine without aura, intractable, without status migrainosus Bilateral occipital neuralgia Other syndromes affecting cervical region Migraine without aura and without status migrainosus, not intractable Migraine without aura, without mention of intractable migraine without mention of status migrainosus Cervicalgia Nummular headache documented in this encounter [facility] note* Diagnosis Pre-op evaluation- Primary Preoperative examination, unspecified Hypothyroidism, unspecified type Other specified diabetes mellitus without complication, without long-term current use of insulin ([facility]) Obesity, Class III, BMI >= 40 Morbid obesity Gastroesophageal reflux disease, unspecified whether esophagitis present Other migraine without status migrainosus, not intractable History of sleep apnea Personal history of other specified diseases Electronic cigarette use Iron deficiency Iron deficiency anemia, unspecified Atypical chest pain Other chest pain Hx of migraines- Primary Personal history of other disorders of nervous system and sense organs IIH (idiopathic intracranial hypertension) Benign intracranial hypertension [facility]* Diagnosis Dyspnea, unspecified type [facility] this [facility] Diagnosis Urinary frequency Impaired fasting glucose documented in this encounter [facility] note* Diagnosis Hair loss Alopecia, unspecified Iron deficiency Other disorders of iron metabolism Acquired hypothyroidism Unspecified hypothyroidism Metabolic syndrome Dysmetabolic Syndrome X documented in this encounter [facility] note* Diagnosis RUQ pain Abdominal pain, right upper quadrant documented in this encounter [facility]* Diagnosis Hemochromatosis, unspecified hemochromatosis type documented in this encounter [facility]* Diagnosis Hemochromatosis, unspecified hemochromatosis type- Primary [facility]* Diagnosis Hemochromatosis, unspecified hemochromatosis type documented in this encounter [facility]* Diagnosis Hemochromatosis, unspecified hemochromatosis type documented in this encounter [facility]* Diagnosis Hemochromatosis, unspecified hemochromatosis type documented in this encounter [facility] note* Diagnosis Hemochromatosis, unspecified hemochromatosis type documented in this encounter [facility] note* Diagnosis Pre-op evaluation- Primary Preoperative examination, unspecified Hypothyroidism, unspecified type Other specified diabetes mellitus without complication, without long-term current use of insulin ([facility]) Obesity, Class III, BMI >= 40 Morbid obesity Gastroesophageal reflux disease, unspecified whether esophagitis present Other migraine without status migrainosus, not intractable History of sleep apnea Personal history of other specified diseases Electronic cigarette use Iron deficiency Iron deficiency anemia, unspecified Atypical chest pain Other chest pain Intrauterine contraceptive device threads lost, subsequent encounter- Primary Encounter for IUD removal Encounter for removal of intrauterine contraceptive device Attempted IUD removal, unsuccessful documented in this encounter [facility] note* Diagnosis Hemochromatosis, unspecified hemochromatosis type- Primary documented in this encounter [facility] note* Diagnosis Pre-op evaluation- Primary Preoperative examination, unspecified Hypothyroidism, unspecified type Other specified diabetes mellitus without complication, without long-term current use of insulin ([facility]) Obesity, Class III, BMI >= 40 Morbid obesity Gastroesophageal reflux disease, unspecified whether esophagitis present Other migraine without status migrainosus, not intractable History of sleep apnea Personal history of other specified diseases Electronic cigarette use Iron deficiency Iron deficiency anemia, unspecified Atypical chest pain Other chest pain Intrauterine contraceptive device threads lost, subsequent encounter- Primary documented in this encounter [facility] note* Diagnosis Hemochromatosis, unspecified hemochromatosis type documented in this encounter [facility] note* Diagnosis Pre-op evaluation- Primary Preoperative examination, unspecified Hypothyroidism, unspecified type Other specified diabetes mellitus without complication, without long-term current use of insulin ([facility]) Obesity, Class III, BMI >= 40 Morbid obesity Gastroesophageal reflux disease, unspecified whether esophagitis present Other migraine without status migrainosus, not intractable History of sleep apnea Personal history of other specified diseases Electronic cigarette use Iron deficiency Iron deficiency anemia, unspecified Atypical chest pain Other chest pain Pre-op evaluation- Primary Preoperative examination, unspecified Chronic migraine without aura, intractable, without status migrainosus ANTHONY (obstructive sleep apnea) Obstructive sleep apnea (adult) (pediatric) Class 3 severe obesity due to excess calories with serious comorbidity and body mass index (BMI) of 50.0 to 59.9 in adult ([facility]) Anxiety and depression Dysthymic disorder Irritable bowel syndrome with diarrhea Irritable bowel syndrome Hereditary hemochromatosis Intrauterine contraceptive device threads lost, subsequent encounter * Assessment & Plan Note - Chito Peña PA-C - 12/30/2024 10:35 AM EDT Associated Problem(s): Hereditary hemochromatosis Assessment: was having weekly phlebotomy, but reports less currently. Followed by PCP * Assessment & Plan Note - Chito Peña PA-C - 12/30/2024 10:33 AM EDT Associated Problem(s): Irritable bowel syndrome with diarrhea Assessment: reports abdominal pain * Assessment & Plan Note - Chito Peña PA-C - 12/30/2024 10:33 AM EDT Associated Problem(s): Anxiety and depression Assessment: Stable on RX, continue as prescribed sertraline (ZOLOFT) and buPROPion XL (WELLBUTRIN XL). Denies concerning symptoms * Assessment & Plan Note - Chito Peña PA-C - 12/30/2024 10:32 AM EDT Associated Problem(s): Class 3 severe obesity due to excess calories with serious comorbidity and body mass index (BMI) of 50.0 to 59.9 in adult (HCC) Assessment: Body mass index is 52.13 kg/m . * Assessment & Plan Note - Chito Peña PA-C - 12/30/2024 10:31 AM EDT Associated Problem(s): Acid reflux Assessment: Stable on RX, continue as prescribed ESOMEPRAZOLE MAGNESIUM * Assessment & Plan Note - Chito Peña PA-C - 12/30/2024 10:31 AM EDT Associated Problem(s): ANTHONY (obstructive sleep apnea) Assessment: Polysomnogram completed 2022. AHI = 20.6, LONG = 0 Patient reports non-compliance with CPAP * Assessment & Plan Note - Chito Peña PA-C - 12/30/2024 10:30 AM EDT Associated Problem(s): Chronic migraine without aura, intractable, without status migrainosus Assessment: reports much improvement on topiramate (TOPAMAX), rare headache now. Continue as prescribed [facility] Diagnosis Pre-op evaluation- Primary Preoperative examination, unspecified Hypothyroidism, unspecified type Other specified diabetes mellitus without complication, without long-term current use of insulin ([facility]) Obesity, Class III, BMI >= 40 Morbid obesity Gastroesophageal reflux disease, unspecified whether esophagitis present Other migraine without status migrainosus, not intractable History of sleep apnea Personal history of other specified diseases Electronic cigarette use Iron deficiency Iron deficiency anemia, unspecified Atypical chest pain Other chest pain Pre-op evaluation- Primary Preoperative examination, unspecified Chronic migraine without aura, intractable, without status migrainosus ANTHONY (obstructive sleep apnea) Obstructive sleep apnea (adult) (pediatric) Class 3 severe obesity due to excess calories with serious comorbidity and body mass index (BMI) of 50.0 to 59.9 in adult ([facility]) Anxiety and depression Dysthymic disorder Irritable bowel syndrome with diarrhea Irritable bowel syndrome Hereditary hemochromatosis Chronic daily headache- Primary Headache Intractable chronic migraine without aura and without status migrainosus Chronic migraine without aura, with intractable migraine, so stated, without mention of status migrainosus Bilateral occipital neuralgia Other syndromes affecting cervical region Cervicalgia Nummular headache IIH (idiopathic intracranial hypertension) Benign intracranial hypertension Intrauterine contraceptive device threads lost, subsequent encounter [facility] Diagnosis Pre-op evaluation- Primary Preoperative examination, unspecified Hypothyroidism, unspecified type Other specified diabetes mellitus without complication, without long-term current use of insulin ([facility]) Obesity, Class III, BMI >= 40 Morbid obesity Gastroesophageal reflux disease, unspecified whether esophagitis present Other migraine without status migrainosus, not intractable History of sleep apnea Personal history of other specified diseases Electronic cigarette use Iron deficiency Iron deficiency anemia, unspecified Atypical chest pain Other chest pain Pre-op evaluation- Primary Preoperative examination, unspecified Chronic migraine without aura, intractable, without status migrainosus ANTHONY (obstructive sleep apnea) Obstructive sleep apnea (adult) (pediatric) Class 3 severe obesity due to excess calories with serious comorbidity and body mass index (BMI) of 50.0 to 59.9 in adult ([facility]) Anxiety and depression Dysthymic disorder Irritable bowel syndrome with diarrhea Irritable bowel syndrome Hereditary hemochromatosis Hx of migraines Personal history of other disorders of nervous system and sense organs IIH (idiopathic intracranial hypertension) Benign intracranial hypertension documented in this encounter [facility] Narrative No data available for this section [facility] Discharge instructions No data available for this section [facility] Discharge instructions* Attachments The following attachments cannot be sent through Care Everywhere. * Urinary Tract: Female: Anatomy Sketch ([place] Attachments The following attachments cannot be sent through Care Everywhere. * [facility] ([place]) [facility] No data available for this section [facility] Reason for referral (narrative) , Dr. Crain [facility] Referred by: NERI BALDWIN CNP [facility] [place] Reason for referral (narrative)* Diagnostic Procedure Only (Routine) - Pending Review Specialty Diagnoses / Procedures Referred By Kamari t Referred To Contact MOLECULAR & FUNCTIONAL IMAGING Diagnoses Dyspepsia and disorder of function of stomach RUQ pain Nausea Procedures NM HEPATOBILIARY W EF AND/OR RX HEPATOBIL SYST IMAG INC GB W/PHARMA INTERVENJ Heladio Crain Jr., DO [address] [place] [address] Molecular & Functional Imaging [address] [place] [address] Referral ID Status Reason Start Date Expiration Date Visits Requested Visits Authorized [id number] Pending Review Auto-Generat ed Referral 12/30/2022 01/29/2024 1 1 * Outpatient Procedure (Routine) - Authorized Specialty Diagnoses / Procedures Referred By Kamari t Referred To Contact [facility] Diagnoses Gastroesophageal reflux disease, unspecified whether esophagitis present Dyspepsia and disorder of function of stomach Procedures EGD DIAGNOSTIC ESOPHAGOGASTRODUODENOSC OPY TRANSORAL DIAGNOSTIC Heladio Crain Jr., DO [address] [place] [address] [facility] [place] [address] [place] [id number] Referral ID Status Reason Start Date Expiration Date Visits Requested Visits Authorized [id number] Authorized Auto-Generat ed Referral 12/30/2022 12/31/2023 1 1 [facility] for referral (narrative)* Diagnostic Procedure Only (Routine) - Closed Specialty Diagnoses / Procedures Referred By Contact Referred To Contact MOLECULAR & FUNCTIONAL IMAGING Diagnoses Chest pain, unspecified type Abnormal electrocardiogram Procedures NM CARDIAC PERF STRESS/PHARM MYOCARDIAL SPECT MULTIPLE STUDIES Kobe Ochoa, CHARLEEN.ALEXIS [address] [place] [address] Molecular & Functional Imaging [address] [id number] Referral ID Status Reason Start Date Expiration Date V isits Requested Visits Authorized [id number] Closed Auto-Generate d Referral 01/30/2023 03/16/2023 1 1 [facility] for referral (narrative)* Diagnostic Procedure Only (Routine) - Closed Specialty Diagnoses / Procedures Referred By Contac t Referred To Contact [facility]LECULAR [facility] FUNCTIONAL IMAGING Diagnoses Dyspepsia and disorder of function of stomach RUQ pain Nausea Procedures NM HEPATOBILIARY W EF AND/OR RX HEPATOBIL SYST IMAG INC GB W/PHARMA INTERVENJ Heladio Crain Jr., DO [address] [place] [address] Molecular & Functional Imaging [address] [place] [address] Referral ID Status Reason Start Date Expiration Date V isits Requested Visits Authorized [id number] Closed Auto-Generate d Referral 12/30/2022 01/29/2024 1 1 [facility] for referral (narrative)* Diagnostic Procedure Only (Routine) - Authorized Specialty Diagnoses / Procedures Referred By Kamari t Referred To Contact [facility] Diagnoses Pelvic pain in female IUD (intrauterine device) in place Procedures PELVIC US WHI US PELVIC NONOBSTETRIC REAL-TIME IMAGE COMPLETE Tammy Coffman APRN.SENIOR PLANNING MANAGER [address] [place] [address] [facility] [address] [place] [address] Referral ID Status Reason Start Date Expiration Date Visits Requested Visits Authorized [id number] Authorized Auto-Generat ed Referral 12/15/2023 12/14/2024 1 1 [facility] for referral (narrative)* Outpatient Procedure (Routine) - New Request Specialty Diagnoses / Procedures Referred By Contac t Referred To Contact [facility] Diagnoses Shortness of breath Pleurisy Dye antibody positive Malaise and fatigue Positive GUILLE (antinuclear antibody) Polymyalgia (HCC) Pain in joint, multiple sites Procedures ECHO ECHO TTHRC R-T 2D W/WOM-MODE COMPL SPEC&COLR D Marcial Queen MD [address] [place] [address] [address] Referral ID Status Reason Start Date Expiration Date Visits Requested Visits Authorized [id number] New Request Auto-Generat ed Referral 01/07/2024 01/06/2025 1 1 [facility] for referral (narrative)* Diagnostic Procedure Only (Routine) - New Request Specialty Diagnoses / Procedures Referred By Contac t Referred To Contact [facility] Diagnoses Pelvic pain in female Hydrosalpinx Procedures PELVIC US WHI US PELVIC NONOBSTETRIC REAL-TIME IMAGE COMPLETE Cyndi Freedman, [address] [place] [address] [address] Referral ID Status Reason Start Date Expiration Date Visits Requested Visits Authorized [id number] New Request Auto-Generat ed Referral 01/15/2024 01/14/2025 1 1 [facility] for referral (narrative)* Outpatient Procedure (Routine) - New Request Specialty Diagnoses / Procedures Referred By Contac t Referred To Contact [facility] Diagnoses Pre-operative cardiovascular examination Atypical chest pain Procedures ECG COMPLETE ECG ROUTINE ECG W/LEAST 12 LDS W/I&R Lluvia Gray MD [address] [place] [address] [address] Referral ID Status Reason Start Date Expiration Date Visits Requested Visits Authorized [id number] New Request Auto-Generat ed Referral 02/23/2024 02/22/2025 1 1 [facility] for visit Narrative* Diagnostic Procedure Only (Routine) - Closed Specialty Diagnoses / Procedures Referred By Kamari t Referred To Contact MOLECULAR [facility] FUNCTIONAL IMAGING Diagnoses Dyspepsia and disorder of function of stomach RUQ pain Nausea Procedures NM HEPATOBILIARY W EF AND/OR RX HEPATOBIL SYST IMAG INC GB W/PHARMA INTERVENJ Heladio Crain Jr., DO [address] [place] [address] Molecular & Functional Imaging [address] [place] [address] Referral ID Status Reason Start Date Expiration Date V isits Requested Visits Authorized [id number] Closed Auto-Generate d Referral 12/30/2022 01/29/2024 1 1 [facility] for visit Narrative* Diagnostic Procedure Only (Routine) - Closed Specialty Diagnoses / Procedures Referred By Kamari t Referred To Contact [facility] Diagnoses Pelvic pain in female IUD (intrauterine device) in place Procedures PELVIC US WHI US PELVIC NONOBSTETRIC REAL-TIME IMAGE COMPLETE Tammy Coffman APRN.SENIOR PLANNING MANAGER [address] [place] [address] [facility] [address] [place] [address] Referral ID Status Reason Start Date Expiration Date V isits Requested Visits Authorized [id number] Closed Auto-Generate d Referral 12/15/2023 12/14/2024 1 1 [facility] for visit Narrative* Imaging (Routine) - Not Required - RTA Specialty Diagnoses / Procedures Referred By Kamari rios Referred To Contact Radiology Diagnoses RUQ pain Procedures US GALLBLADDER RUQ Vargas Malhotra, DO [address] [place] [address] Phone: tel: fax: Referral ID Status Reason Start Date Expiration Date V isits Requested Visits Authorized [id number] Not Required - RTA 09/27/2024 09/27/2025 1 1 [facility] for visit Narrative* Treatment Plan and Therapy Plan (Routine) - Authorized Specialty Diagnoses / Procedures Referred By Kamari rios Referred To Contact Diagnoses Hemochromatosis, unspecified hemochromatosis type Procedures NH TRANSFUSION BLOOD/BLOOD COMPONENTS Vargas Malhotra, DO [address] [place] [address] Phone: tel: fax: Vargas Malhotra, DO [address] [place] [address] Phone: tel: fax: Referral ID Status Reason Start Date Expiration Date V isits Requested Visits Authorized [id number] Authorized 10/18/2024 10/18/2025 99 99 [facility] for visit Narrative* MRI/CT (Routine) - Closed Specialty Diagnoses / Procedures Referred By Kamari rios Referred To Contact MR IMAGING Diagnoses Hx of migraines IIH (idiopathic intracranial hypertension) Procedures MRI BRAIN WO IVCON MRI BRAIN BRAIN STEM W/O CONTRAST MATERIAL Shell Ro PA-C [address] [place] [address] Phone: tel: fax: [place] [address] Referral ID Status Reason Start Date Expiration Date V isits Requested Visits Authorized [id number] Closed Auto-Generate d Referral 01/12/2025 02/11/2026 1 1 [facility] Summary Purpose Family History No Family History Records FoundNo Family History Records FoundNo Family History Records FoundNo Family History Records Found No data available for this section No Family History Records FoundNo Family History Records FoundNo Family History Records FoundNo Family History Records FoundNo Family History Records Found Advance Directives Advance Directive Response Recorded Date/ Time Advance Directives No November 28 1:20pm Date Activated Date Inactivated Comments 03/08/2024 6:07 AM Date Activated Date Inactivated Comments 03/08/2024 6:07 AM 03/08/2024 11:48 AM Date Activated Date Inactivated Comments 03/08/2024 6:07 AM 03/08/2024 11:48 AM Reason for Referral Specialty Diagnoses / Procedures Referred By Contac t Referred To Contact MR IMAGING Diagnoses Hx of migraines Procedures MRI BRAIN WO IVCON MRI BRAIN BRAIN STEM W/O CONTRAST MATERIAL Shell Ro PA-C [address] [place] [address] Mr Imaging [place] [address] Referral ID Status Reason Start Date Expiration Date Visits Requested Visits Authorized [id number] New Request Auto-Generat ed Referral 06/03/2024 07/03/2025 1 1 Specialty Diagnoses / Procedures Referred By Contac t Referred To Contact MR IMAGING Diagnoses IIH (idiopathic intracranial hypertension) Pulsatile tinnitus, right ear Procedures MRV BRAIN WO IVCON MRA, HEAD W/O CONTRAST Oren Mills DO [address] [place] [address] Mr [facility] [place] [address] Referral ID Status Reason Start Date Expiration Date V isits Requested Visits Authorized [id number] Closed Auto-Generate d Referral 08/13/2023 09/11/2024 1 1 Specialty Diagnoses / Procedures Referred By Contac t Referred To Contact Diagnoses Pelvic pain in female Procedures CONSULT TO WHIPPER [facility]ATER PELVIC PAIN OFFICE/OUTPATIENT [facility] 60 MINUTES [place] [address] Referral ID Status Reason Start Date Expiration Date Visits Requested Visits Authorized [id number] Authorized PCP Requested Referral Auto-Generate d Referral 01/06/2024 01/05/2025 1 1 Specialty Diagnoses / Procedures [facility] To Contact Diagnoses Autoimmune disease (HCC) Arthralgia, unspecified joint Positive GUILLE (antinuclear antibody) Malaise and fatigue Polymyalgia (HCC) Polyarthralgia Class 3 severe obesity due to excess calories with serious comorbidity and body mass index (BMI) of 50.0 to 59.9 in adult (HCC) Right knee pain, unspecified chronicity Procedures CONSULT TO WELLNESS PHYSICIAN OFFICE/OUTPATIENT [facility] 60 MINUTES Marcial Queen MD [address] [place] [id number] Referral ID Status Reason Start Date Expiration Date Visits Requested Visits Authorized [id number] Authorized PCP Requested Referral 11/26/2023 11/25/2024 1 1 Specialty Diagnoses / Procedures Referred By Kamari t Referred To Contact [facility] Diagnoses Autoimmune disease (HCC) Arthralgia, unspecified joint Positive GUILLE (antinuclear antibody) Malaise and fatigue Polymyalgia (HCC) Polyarthralgia Class 3 severe obesity due to excess calories with serious comorbidity and body mass index (BMI) of 50.0 to 59.9 in adult (HCC) Right knee pain, unspecified chronicity Procedures CONSULT TO PHYSICAL THERAPY PHYSICAL THERAPY EVALUATION HIGH COMPLEX 45 MINS Marcial Queen MD [address] [place] [address] [facility] [place] [address] Referral ID Status Reason Start Date Expiration Date Visits Requested Visits Authorized [id number] Pending Review Auto-Generat ed Referral 11/26/2023 11/25/2024 1 1 Specialty Diagnoses / Procedures Referred By Kamari Referred To Contact CT IMAGING Diagnoses Generalized abdominal pain Procedures CT ABD/PEL W IVCON CT ABD & PELVIS W/CONTRAST Heladoi Crain Jr., DO [address] [place] [address] Ct Imaging [id number] Referral ID Status Reason Start Date Expiration Date Visits Requested Visits Authorized [id number] Authorized Auto-Generat ed Referral 11/13/2023 12/12/2024 1 1 Specialty Diagnoses / Procedures Referred By Kamari t Referred To Contact Heladio Crain Jr., DO [address] [place], [place] [id number] Referral ID Status Reason Start Date Expiration Date Visits Re quested Visits Authorized [id number] Closed 1 1 Specialty Diagnoses / Procedures Referred By Kamari t Referred To Contact Diagnoses Class 3 severe obesity due to excess calories with serious comorbidity and body mass index (BMI) of 50.0 to 59.9 in adult (HCC) ANTHONY (obstructive sleep apnea) Procedures ENDOCRINOLOGY DIETITIAN VISIT (MNT) MEDICAL NUTRITION ASSMT&IVNTJ INDIV EACH 15 [place] MEDICAL NUTRITION ASSMT&IVNTJ INDIV EACH 15 [place] MEDICAL NUTRITION ASSMT&IVNTJ INDIV EACH 15 [place] MEDICAL NUTRITION ASSMT&IVNTJ INDIV EACH [place] [address] [address] Referral ID Status Reason Start Date Expiration Date Visits Requested Visits Authorized [id number] Authorized PCP Requested Referral 07/29/2023 07/28/2024 1 1 Specialty Diagnoses / Procedures Referred By Contac t Referred To Contact [facility] Diagnoses Chronic neck pain Chronic bilateral thoracic back pain Procedures CONSULT TO PHYSICAL THERAPY PHYSICAL THERAPY EVALUATION HIGH COMPLEX 45 MINS Joanie Gonzalez, CHARLEEN.SENIOR PLANNING MANAGER [address] [place] [address] [facility] [place] [address] [place] [address] Referral ID Status Reason Start Date Expiration Date Visits Requested Visits Authorized [id number] Authorized Auto-Generat ed Referral 05/18/2023 05/17/2024 99 99 Specialty Diagnoses / Procedures Referred By Contac t Referred To Contact Ophthalmology Diagnoses Chronic nonintractable headache, unspecified headache type IIH (idiopathic intracranial hypertension) Procedures CONSULT TO OPHTHALMOLOGY OFFICE/OUTPATIENT [facility] 60 MINUTES Katarina Karimi DO [address] [place] [address] Referral ID Status Reason Start Date Expiration Date Visits Requested Visits Authorized [id number] Authorized PCP Requested Referral 07/06/2023 07/05/2024 1 1 Specialty Diagnoses / Procedures Referred By Contac t Referred To Contact Neurology Diagnoses Chronic nonintractable headache, unspecified headache type Procedures CONSULT TO NEUROLOGY OFFICE/OUTPATIENT [facility] 60 MINUTES Katarina Karimi DO [address] [place] [address] Referral ID Status Reason Start Date Expiration Date Visits Requested Visits Authorized [id number] Authorized PCP Requested Referral 07/06/2023 07/05/2024 1 1 Specialty Diagnoses / Procedures Referred By Contac t Referred To Contact Cardiology Diagnoses SOB (shortness of breath) Abnormal stress test Procedures CONSULT TO CARDIOLOGY OFFICE/OUTPATIENT NEW HIGH MDM 60-74 MINUTES Aram Rogers, DO [address] [facility] [place] [address] Reid Mora MD [address] [place] [address] Referral ID Status Reason Start Date Expiration Date Visits Requested Visits Authorized [id number] Authorized PCP Requested Referral 11/25/2022 11/25/2023 1 1 Chief Complaint and Reason for Visit Chief Complaint r27.0 Chief Complaint r27.0 r27.0 r20.2 r29.898 r93.0 Chief Complaint r27.0 r27.0 r20.2 r29.898 r93.0 r93.0 Additional Source Comments Care Team (unrecognized sect ion and content) Roll Clamp Operator Relationship Specialty Start Date End Date Vargas Malhotra DO [address] [facility] [place] [address] PCP - General Family Medicine 11/12/22 Roll Clamp Operator Relationship Specialty Start Date End Date Vargas Malhotra DO [address] [facility] [place] [address] PCP - General Family Medicine 11/12/22 Roll Clamp Operator Relationship Specialty Start Date End Date Vargas Malhotra DO [address] [facility] [place] [address] PCP - General Family Medicine 11/12/22 Roll Clamp Operator Relationship Specialty Start Date End Date Vargas Malhotra DO [address] [place] [address] PCP - General Family Medicine 11/12/22 Roll Clamp Operator Relationship Specialty Start Date End Date Vargas Malhotra DO [address] [place] [address] PCP - General Family Medicine 11/12/22 Team Status: Active Member Role Status Dates Vargas Malhotra DO Primary Care Provider Active Team Status: Inactive Member Role Status Dates Vargas Malhotra DO Primary Care Provider Active Elie Lerner DO Attending Provider Active Roll Clamp Operator Relationship Specialty Start Date End Date Vargas Malhotra DO [address] [place] [address] PCP - General Family Medicine 11/12/22 Roll Clamp Operator Relationship Specialty Start Date End Date Vargas Malhotra DO [address] [place] [address] PCP - General Family Medicine 11/12/22 Roll Clamp Operator Relationship Specialty Start Date End Date Vargas Malhotra DO PCP - General Family Medicine 11/12/22 Roll Clamp Operator Relationship Specialty Start Date End Date Vargas Malhotra DO PCP - General Family Medicine 11/12/22 Roll Clamp Operator Relationship Specialty Start Date End Date Vargas Malhotra DO PCP - General Family Medicine 11/12/22 Team Status: Inactive Member Role Status Dates Vargas Malhotra DO Primary Care Provider Active Neyda Lee , LIME [employer]ILER-COLOR [employer]ATER-C Attending Provider Active Roll Clamp Operator Relationship Specialty Start Date End Date Vargas Malhotra DO PCP - General Family Medicine 11/12/22 Roll Clamp Operator Relationship Specialty Start Date End Date Vargas Malhotra DO PCP - General Family Medicine 11/12/22 Roll Clamp Operator Relationship Specialty Start Date End Date Vargas Malhotra DO PCP - General Family Medicine 11/12/22 Roll Clamp Operator Relationship Specialty Start Date End Date Gonzalez, Vargas Arreola PCP - General Family Medicine 11/12/22 Roll Clamp Operator Relationship Specialty Start Date End Date Gonzalez, Vargas Arreola PCP - General Family Medicine 11/12/22 Roll Clamp Operator Relationship Specialty Start Date End Date Gonzalez, Vargas ArreolaDO PCP - General Family Medicine 11/12/22 Roll Clamp Operator Relationship Specialty Start Date End Date Gonzalez, Vargas ArreolaDO PCP - General Family Medicine 11/12/22 Elie Lerner, DO [address] [phone] [place] Referring Team Neurology 07/02/23 Roll Clamp Operator Relationship Specialty Start Date End Date Gonzalez Vargas ArreolaDO PCP - General Family Medicine 11/12/22 Elie Lerner DO [address] [phone] NI Referring Team Neurology 07/02/23 Roll Clamp Operator Relationship Specialty Start Date End Date Gonzalez Vargas ArreolaDO PCP - General Family Medicine 11/12/22 Elie Lerner DO [address] [phone] NI Referring Team Neurology 07/02/23 Roll Clamp Operator Relationship Specialty Start Date End Date Vargas Malhotra DO PCP - General Family Medicine 11/12/22 Elie Lerner DO [address] [place] [phone] NI Referring Team Neurology 07/02/23 Roll Clamp Operator Relationship Specialty Start Date End Date Vargas Malhotra DO PCP - General Family Medicine 11/12/22 Elie Lerner, [address] [place] [phone] NI Referring Team Neurology 07/02/23 Roll Clamp Operator Relationship Specialty Start Date End Date Vargas Malhotra DO PCP - General Family Medicine 11/12/22 Elie Lerner DO [address] [place] [address] NI Referring Team Neurology 07/02/23 Roll Clamp Operator Relationship Specialty Start Date End Date Vargas Malhotra DO PCP - General Family Medicine 11/12/22 Elie Lerner, [address] [place] [address] NI Referring Team Neurology 07/02/23 Roll Clamp Operator Relationship Specialty Start Date End Date Vargas Malhotra DO PCP - General Family Medicine 11/12/22 Elie Lerner, DO [address] [place] [phone] NI Referring Team Neurology 07/02/23 Roll Clamp Operator Relationship Specialty Start Date End Date Vargas Malhotra DO PCP - General Family Medicine 11/12/22 Elie Lerner, DO [address] [place] [phone] NI Referring Team Neurology 07/02/23 Roll Clamp Operator Relationship Specialty Start Date End Date Vargas Malhotra DO PCP - General Family Medicine 11/12/22 Elie Lerner, DO [address] [phone] NI Referring Team Neurology 07/02/23 Roll Clamp Operator Relationship Specialty Start Date End Date Vargas Malhotra DO PCP - General Family Medicine 11/12/22 Elie Lerner DO [address] [place] [address] NI Referring Team Neurology 07/02/23 Roll Clamp Operator Relationship Specialty Start Date End Date Vargas Malhotra DO PCP - General Family Medicine 11/12/22 Elie Lerner, DO [address] [phone] NI Referring Team Neurology 07/02/23 Roll Clamp Operator Relationship Specialty Start Date End Date Vargas Malhotra DO PCP - General Family Medicine 11/12/22 Elie Lerner, DO [address] [place] [address] NI Referring Team Neurology 07/02/23 Roll Clamp Operator Relationship Specialty Start Date End Date Vargas Malhotra DO PCP - General Family Medicine 11/12/22 Elie Lerner, DO [address] [place] [address] NI Referring Team Neurology 07/02/23 Roll Clamp Operator Relationship Specialty Start Date End Date Vargas Malhotra DO PCP - General Family Medicine 11/12/22 Elie Lerner, DO [address] [phone] NI Referring Team Neurology 07/02/23 Roll Clamp Operator Relationship Specialty Start Date End Date Vargas Malhotra DO PCP - General Family Medicine 11/12/22 Elie Lerner, DO [address] [place] [address] NI Referring Team Neurology 07/02/23 Roll Clamp Operator Relationship Specialty Start Date End Date Vargas Malhotra DO PCP - General Family Medicine 11/12/22 Elie Lerner, DO [address] [phone] NI Referring Team Neurology 07/02/23 Roll Clamp Operator Relationship Specialty Start Date End Date Vargas Malhotra DO PCP - General Family Medicine 11/12/22 Elie Lerner, DO [address] [phone] NI Referring Team Neurology 07/02/23 Roll Clamp Operator Relationship Specialty Start Date End Date Vargas Malhotra DO PCP - General Family Medicine 11/12/22 Elie Lerner, [address] [phone] NI Referring Team Neurology 07/02/23 Roll Clamp Operator Relationship Specialty Start Date End Date Vargas Malhotra DO PCP - General Family Medicine 11/12/22 Elie Lerner DO [address] [phone] NI Referring Team Neurology 07/02/23 Roll Clamp Operator Relationship Specialty Start Date End Date Vargas Malhotra DO PCP - General Family Medicine 11/12/22 Elie Lerner DO [address] [phone] NI Referring Team Neurology 07/02/23 Roll Clamp Operator Relationship Specialty Start Date End Date Vargas Malhotra DO PCP - General Family Medicine 11/12/22 Elie Lerner, DO [address] [place] [phone] NI Referring Team Neurology 07/02/23 Roll Clamp Operator Relationship Specialty Start Date End Date Vargas Malhotra DO PCP - General Family Medicine 11/12/22 Elie Lerner, DO [address] [phone] NI Referring Team Neurology 07/02/23 Roll Clamp Operator Relationship Specialty Start Date End Date Vargas Malhotra DO PCP - General Family Medicine 11/12/22 Elie Lerner, DO [address] [phone] NI Referring Team Neurology 07/02/23 Roll Clamp Operator Relationship Specialty Start Date End Date Vargas Malhotra DO PCP - General Family Medicine 11/12/22 Elie Lerner, DO [address] [place] [address] NI Referring Team Neurology 07/02/23 Roll Clamp Operator Relationship Specialty Start Date End Date Vargas Malhotra DO PCP - General Family Medicine 11/12/22 Elie Lerner DO [address] [phone] NI Referring Team Neurology 07/02/23 Roll Clamp Operator Relationship Specialty Start Date End Date Vargas Malhotra DO PCP - General Family Medicine 11/12/22 Elie Lerner, DO [address] [phone] NI Referring Team Neurology 07/02/23 Roll Clamp Operator Relationship Specialty Start Date End Date Vargas Malhotra DO PCP - General Family Medicine 11/12/22 Elie Lerner, DO [address] [phone] NI Referring Team Neurology 07/02/23 Roll Clamp Operator Relationship Specialty Start Date End Date Vargas Malhotra DO PCP - General Family Medicine 11/12/22 Elie Lerner DO [address] [phone] NI Referring Team Neurology 07/02/23 Roll Clamp Operator Relationship Specialty Start Date End Date Vargas Malhotra DO PCP - General Family Medicine 11/12/22 Elie Lerner DO [address] [phone] NI Referring Team Neurology 07/02/23 Roll Clamp Operator Relationship Specialty Start Date End Date Vargas Malhotra DO [address] [place] [address] PCP - General Family Medicine 02/14/22 Roll Clamp Operator Relationship Specialty Start Date End Date Vargas Malhotra DO [address] [place] [address] PCP - General Family Medicine 02/14/22 Roll Clamp Operator Relationship Specialty Start Date End Date Vargas Malhotra DO [address] [place] [address] PCP - General Family Medicine 02/14/22 Roll Clamp Operator Relationship Specialty Start Date End Date Vargas Malhotra DO [address] [place] [address] PCP - General Family Medicine 02/14/22 Roll Clamp Operator Relationship Specialty Start Date End Date Vargas Malhotra DO [address] [place] [address] PCP - General Family Medicine 02/14/22 Roll Clamp Operator Relationship Specialty Start Date End Date Vargas Malhotra DO PCP - General Family Medicine 11/12/22 Elie Lerner DO [address] [place] [phone] NI Referring Team Neurology 07/02/23 Roll Clamp Operator Relationship Specialty Start Date End Date Vargas Malhotra DO PCP - General Family Medicine 11/12/22 Eile Lerner DO [address] [phone] NI Referring Team Neurology 07/02/23 Oren Mills DO [address] [place], [place] [address] Referring Neurology 04/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 Start Date End Date Vargas Malhotra DO [address] [place], [place] [address] PCP - General Family Medicine 02/14/22 Roll Clamp Operator Relationship Specialty Start Date End Date Vargas Malhotra DO PCP - General Family Medicine 11/12/22 Elie Lerner DO [address] [phone] NI Referring Team Neurology 07/02/23 Oren Mills DO [address] [place] [address] Referring Neurology 04/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 Start Date End Date Vargas Malhotra DO PCP - General Family Medicine 11/12/22 Elie Lerner DO [address] [phone] NI Referring Team Neurology 07/02/23 Oren Mills DO [address] [place], [place] [address] Referring Neurology 04/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 Start Date End Date Vargas Malhotra DO PCP - General Family Medicine 11/12/22 Elie Lerner DO [address] [phone] NI Referring Team Neurology 07/02/23 Oren Mills DO [address] [place] [address] Referring Neurology 04/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 Start Date End Date Vargas Malhotra DO [address] [place] [address] PCP - General Family Medicine 02/14/22 Roll Clamp Operator Relationship Specialty Start Date End Date Vargas Malhotra DO [address] [place] [address] PCP - General Family Medicine 02/14/22 Roll Clamp Operator Relationship Specialty Start Date End Date Vargas Malhotra DO PCP - General Family Medicine 11/12/22 Elie Lerner DO [address] [phone] NI Referring Team Neurology 07/02/23 Oren Mills DO [address] [place], [place] [address] Referring Neurology 04/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 Start Date End Date Vargas Malhotra DO PCP - General Family Medicine 11/12/22 Elie Lerner DO [address] [phone] NI Referring Team Neurology 07/02/23 Oren Mills DO [address] [place] [address] Referring Neurology 04/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 Start Date End Date Vargas Malhotra DO PCP - General Family Medicine 11/12/22 Elie Lerner DO [address] [phone] NI Referring Team Neurology 07/02/23 Oren Mills DO [address] [place] [address] Referring Neurology 04/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 Start Date End Date Vargas Malhotra DO PCP - General Family Medicine 02/14/22 Roll Clamp Operator Relationship Specialty Start Date End Date Vargas Malhotra DO PCP - General Family Medicine 11/12/22 Elie Lerner DO [address] [phone] NI Referring Team Neurology 07/02/23 Oren Mills DO [address] [place] [address] Referring Neurology 04/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 Start Date End Date Vargas Malhotra DO PCP - General Family Medicine 02/14/22 Roll Clamp Operator Relationship Specialty Start Date End Date Vargas Malhotra DO PCP - General Family Medicine 02/14/22 Roll Clamp Operator Relationship Specialty Start Date End Date Vargas Malhotra DO PCP - General Family Medicine 02/14/22 Roll Clamp Operator Relationship Specialty Start Date End Date Vargas Malhotra DO PCP - General Family Medicine 02/14/22 Roll Clamp Operator Relationship Specialty Start Date End Date Vargas Malhotra DO PCP - General Family Medicine 02/14/22 Roll Clamp Operator Relationship Specialty Start Date End Date Vargas Malhotra DO PCP - General Family Medicine 11/12/22 Elie Lerner DO [address] [phone] NI Referring Team Neurology 07/02/23 Oren Mills DO [address] [place] [address] Referring Neurology 04/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 Start Date End Date Vargas Malhotra DO PCP - General Family Medicine 02/14/22 Roll Clamp Operator Relationship Specialty Start Date End Date Vargas Malhotra DO PCP - General Family Medicine 02/14/22 Roll Clamp Operator Relationship Specialty Start Date End Date Vargas Malhotra DO PCP - General Family Medicine 11/12/22 Elie Lerner DO [address] [phone] NI Referring Team Neurology 07/02/23 Oren Mills DO [address] [place] [address] Referring Neurology 04/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 Start Date End Date Vargas Malhotra DO PCP - General Family Medicine 02/14/22 Roll Clamp Operator Relationship Specialty Start Date End Date Vargas Malhotra DO PCP - General Family Medicine 11/12/22 Elie Lerner DO [address] [phone] NI Referring Team Neurology 07/02/23 Oren Mills DO [address] [place] [address] Referring Neurology 04/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 Start Date End Date Vargas Malhotra DO PCP - General Family Medicine 02/14/22 Roll Clamp Operator Relationship Specialty Start Date End Date Vargas Malhotra DO PCP - General Family Medicine 11/12/22 Elie Lerner DO [address] [phone] NI Referring Team Neurology 07/02/23 Oren Mills DO [address] [place], [place] [phone] Referring Neurology 04/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 Start Date End Date Vargas Malhotra DO PCP - General Family Medicine 11/12/22 Elie Lerner DO [address] [phone] NI Referring Team Neurology 07/02/23 Oren Mills DO [address] [place], [place] [address] Referring Neurology 04/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 Start Date End Date Vargas Malhotra DO PCP - General Family Medicine 11/12/22 Elie Lerner DO [address] [phone] NI Referring Team Neurology 07/02/23 Oren Mills DO [address] [place], [place] [phone] Referring Neurology 04/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 Start Date End Date Vargas Malhotra ElbaDO PCP - General Family Medicine 11/12/22 Elie Lerner DO [address] [phone] NI Referring Team Neurology 07/02/23 Oren Mills DO [address] [place], [place] [address]24[address] Referring Neurology 04/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 Start Date End Date Vargas Malhotra DO PCP - General Family Medicine 11/12/22 Elie Lerner DO [address] [id number] [place] Referring Team Neurology 07/02/23 Oren Mills DO [address] [place] [address] Referring Neurology 04/19/24 INFORMATION SOURCE (unrecogn ized section and content) DATE CREATED AUTHOR 05/30/2022 [facility] DATE CREATED AUTHOR AUTHOR'S ORGANIZ ATION 10/29/2022 [facility] DATE CREATED AUTHOR AUTHOR'S ORGANIZ ATION 02/04/2023 [facility] DATE CREATED AUTHOR AUTHOR'S ORGANIZ ATION 04/24/2023 [facility] DATE CREATED AUTHOR AUTHOR'S ORGANIZ ATION 10/02/2024 [facility] DATE CREATED AUTHOR AUTHOR'S ORGANIZ ATION 10/06/2024 [facility] ([place], [place]) DATE CREATED AUTHOR AUTHOR'S ORGANIZ ATION 11/27/2024 [facility] ([place], [place]) DATE CREATED AUTHOR AUTHOR'S ORGANIZ ATION 01/04/2025 [facility] DATE CREATED AUTHOR AUTHOR'S ORGANDIMPLE ATION 01/13/2025 [facility] Source Comments (unrecognize d section and content) In the event this informatio n is protected by the Federal Confidentiality of Alcohol and Drug Abuse Patient Records regulations: The Federal rules restrict any use of the information to criminally investigate or prosecute any alcohol or drug abuse patient.[facility] the event this information is protected by the Federal Confidentiality of Alcohol and Drug Abuse Patient Records regulations: The Federal rules restrict any use of the information to criminally investigate or prosecute any alcohol or drug abuse patient.[facility] HospitalIn the event this information is protected by the Federal Confidentiality of Alcohol and Drug Abuse Patient Records regulations: The Federal rules restrict any use of the information to criminally investigate or prosecute any alcohol or drug abuse patient.[facility] HospitalIn the event this information is protected by the Federal Confidentiality of Alcohol and Drug Abuse Patient Records regulations: The Federal rules restrict any use of the information to criminally investigate or prosecute any alcohol or drug abuse patient.[facility] HospitalIn the event this information is protected by the Federal Confidentiality of Alcohol and Drug Abuse Patient Records regulations: The Federal rules restrict any use of the information to criminally investigate or prosecute any alcohol or drug abuse patient.[facility] HospitalIn the event this information is protected by the Federal Confidentiality of Alcohol and Drug Abuse Patient Records regulations: The Federal rules restrict any use of the information to criminally investigate or prosecute any alcohol or drug abuse patient.[facility] HospitalIn the event this information is protected by the Federal Confidentiality of Alcohol and Drug Abuse Patient Records regulations: The Federal rules restrict any use of the information to criminally investigate or prosecute any alcohol or drug abuse patient.[facility] HospitalIn the event this information is protected by the Federal Confidentiality of Alcohol and Drug Abuse Patient Records regulations: The Federal rules restrict any use of the information to criminally investigate or prosecute any alcohol or drug abuse patient.[facility] HospitalIn the event this information is protected by the Federal Confidentiality of Alcohol and Drug Abuse Patient Records regulations: The Federal rules restrict any use of the information to criminally investigate or prosecute any alcohol or drug abuse patient.[facility] HospitalIn the event this information is protected by the Federal Confidentiality of Alcohol and Drug Abuse Patient Records regulations: The Federal rules restrict any use of the information to criminally investigate or prosecute any alcohol or drug abuse patient.[facility] HospitalIn the event this information is protected by the Federal Confidentiality of Alcohol and Drug Abuse Patient Records regulations: The Federal rules restrict any use of the information to criminally investigate or prosecute any alcohol or drug abuse patient.[facility] HospitalIn the event this information is protected by the Federal Confidentiality of Alcohol and Drug Abuse Patient Records regulations: The Federal rules restrict any use of the information to criminally investigate or prosecute any alcohol or drug abuse patient.[facility] HospitalIn the event this information is protected by the Federal Confidentiality of Alcohol and Drug Abuse Patient Records regulations: The Federal rules restrict any use of the information to criminally investigate or prosecute any alcohol or drug abuse patient.[facility] HospitalIn the event this information is protected by the Federal Confidentiality of Alcohol and Drug Abuse Patient Records regulations: The Federal rules restrict any use of the information to criminally investigate or prosecute any alcohol or drug abuse patient.[facility] HospitalIn the event this information is protected by the Federal Confidentiality of Alcohol and Drug Abuse Patient Records regulations: The Federal rules restrict any use of the information to criminally investigate or prosecute any alcohol or drug abuse patient.[facility] HospitalIn the event this information is protected by the Federal Confidentiality of Alcohol and Drug Abuse Patient Records regulations: The Federal rules restrict any use of the information to criminally investigate or prosecute any alcohol or drug abuse patient.[facility] HospitalIn the event this information is protected by the Federal Confidentiality of Alcohol and Drug Abuse Patient Records regulations: The Federal rules restrict any use of the information to criminally investigate or prosecute any alcohol or drug abuse patient.[facility] HospitalIn the event this information is protected by the Federal Confidentiality of Alcohol and Drug Abuse Patient Records regulations: The Federal rules restrict any use of the information to criminally investigate or prosecute any alcohol or drug abuse patient.[facility] HospitalIn the event this information is protected by the Federal Confidentiality of Alcohol and Drug Abuse Patient Records regulations: The Federal rules restrict any use of the information to criminally investigate or prosecute any alcohol or drug abuse patient.[facility] HospitalIn the event this information is protected by the Federal Confidentiality of Alcohol and Drug Abuse Patient Records regulations: The Federal rules restrict any use of the information to criminally investigate or prosecute any alcohol or drug abuse patient.[facility] HospitalIn the event this information is protected by the Federal Confidentiality of Alcohol and Drug Abuse Patient Records regulations: The Federal rules restrict any use of the information to criminally investigate or prosecute any alcohol or drug abuse patient.[facility] HospitalIn the event this information is protected by the Federal Confidentiality of Alcohol and Drug Abuse Patient Records regulations: The Federal rules restrict any use of the information to criminally investigate or prosecute any alcohol or drug abuse patient.[facility] HospitalIn the event this information is protected by the Federal Confidentiality of Alcohol and Drug Abuse Patient Records regulations: The Federal rules restrict any use of the information to criminally investigate or prosecute any alcohol or drug abuse patient.[facility] HospitalIn the event this information is protected by the Federal Confidentiality of Alcohol and Drug Abuse Patient Records regulations: The Federal rules restrict any use of the information to criminally investigate or prosecute any alcohol or drug abuse patient.[facility] HospitalIn the event this information is protected by the Federal Confidentiality of Alcohol and Drug Abuse Patient Records regulations: The Federal rules restrict any use of the information to criminally investigate or prosecute any alcohol or drug abuse patient.[facility] HospitalIn the event this information is protected by the Federal Confidentiality of Alcohol and Drug Abuse Patient Records regulations: The Federal rules restrict any use of the information to criminally investigate or prosecute any alcohol or drug abuse patient.[facility] HospitalIn the event this information is protected by the Federal Confidentiality of Alcohol and Drug Abuse Patient Records regulations: The Federal rules restrict any use of the information to criminally investigate or prosecute any alcohol or drug abuse patient.[facility] HospitalIn the event this information is protected by the Federal Confidentiality of Alcohol and Drug Abuse Patient Records regulations: The Federal rules restrict any use of the information to criminally investigate or prosecute any alcohol or drug abuse patient.[facility] HospitalIn the event this information is protected by the Federal Confidentiality of Alcohol and Drug Abuse Patient Records regulations: The Federal rules restrict any use of the information to criminally investigate or prosecute any alcohol or drug abuse patient.[facility] HospitalIn the event this information is protected by the Federal Confidentiality of Alcohol and Drug Abuse Patient Records regulations: The Federal rules restrict any use of the information to criminally investigate or prosecute any alcohol or drug abuse patient.[facility] HospitalIn the event this information is protected by the Federal Confidentiality of Alcohol and Drug Abuse Patient Records regulations: The Federal rules restrict any use of the information to criminally investigate or prosecute any alcohol or drug abuse patient.[facility] HospitalIn the event this information is protected by the Federal Confidentiality of Alcohol and Drug Abuse Patient Records regulations: The Federal rules restrict any use of the information to criminally investigate or prosecute any alcohol or drug abuse patient.[facility] HospitalIn the event this information is protected by the Federal Confidentiality of Alcohol and Drug Abuse Patient Records regulations: The Federal rules restrict any use of the information to criminally investigate or prosecute any alcohol or drug abuse patient.[facility] HospitalIn the event this information is protected by the Federal Confidentiality of Alcohol and Drug Abuse Patient Records regulations: The Federal rules restrict any use of the information to criminally investigate or prosecute any alcohol or drug abuse patient.[facility] HospitalIn the event this information is protected by the Federal Confidentiality of Alcohol and Drug Abuse Patient Records regulations: The Federal rules restrict any use of the information to criminally investigate or prosecute any alcohol or drug abuse patient.[facility] HospitalIn the event this information is protected by the Federal Confidentiality of Alcohol and Drug Abuse Patient Records regulations: The Federal rules restrict any use of the information to criminally investigate or prosecute any alcohol or drug abuse patient.[facility] HospitalIn the event this information is protected by the Federal Confidentiality of Alcohol and Drug Abuse Patient Records regulations: The Federal rules restrict any use of the information to criminally investigate or prosecute any alcohol or drug abuse patient.[facility] HospitalIn the event this information is protected by the Federal Confidentiality of Alcohol and Drug Abuse Patient Records regulations: The Federal rules restrict any use of the information to criminally investigate or prosecute any alcohol or drug abuse patient.[facility] HospitalIn the event this information is protected by the Federal Confidentiality of Alcohol and Drug Abuse Patient Records regulations: The Federal rules restrict any use of the information to criminally investigate or prosecute any alcohol or drug abuse patient.[facility] HospitalIn the event this information is protected by the Federal Confidentiality of Alcohol and Drug Abuse Patient Records regulations: The Federal rules restrict any use of the information to criminally investigate or prosecute any alcohol or drug abuse patient.[facility] HospitalIn the event this information is protected by the Federal Confidentiality of Alcohol and Drug Abuse Patient Records regulations: The Federal rules restrict any use of the information to criminally investigate or prosecute any alcohol or drug abuse patient.[facility] HospitalIn the event this information is protected by the Federal Confidentiality of Alcohol and Drug Abuse Patient Records regulations: The Federal rules restrict any use of the information to criminally investigate or prosecute any alcohol or drug abuse patient.[facility] HospitalIn the event this information is protected by the Federal Confidentiality of Alcohol and Drug Abuse Patient Records regulations: The Federal rules restrict any use of the information to criminally investigate or prosecute any alcohol or drug abuse patient.[facility] HospitalIn the event this information is protected by the Federal Confidentiality of Alcohol and Drug Abuse Patient Records regulations: The Federal rules restrict any use of the information to criminally investigate or prosecute any alcohol or drug abuse patient.[facility] HospitalIn the event this information is protected by the Federal Confidentiality of Alcohol and Drug Abuse Patient Records regulations: The Federal rules restrict any use of the information to criminally investigate or prosecute any alcohol or drug abuse patient.[facility] HospitalIn the event this information is protected by the Federal Confidentiality of Alcohol and Drug Abuse Patient Records regulations: The Federal rules restrict any use of the information to criminally investigate or prosecute any alcohol or drug abuse patient.[facility] HospitalIn the event this information is protected by the Federal Confidentiality of Alcohol and Drug Abuse Patient Records regulations: The Federal rules restrict any use of the information to criminally investigate or prosecute any alcohol or drug abuse patient.[facility] HospitalIn the event this information is protected by the Federal Confidentiality of Alcohol and Drug Abuse Patient Records regulations: The Federal rules restrict any use of the information to criminally investigate or prosecute any alcohol or drug abuse patient.[facility] HospitalIn the event this information is protected by the Federal Confidentiality of Alcohol and Drug Abuse Patient Records regulations: The Federal rules restrict any use of the information to criminally investigate or prosecute any alcohol or drug abuse patient.[facility] HospitalIn the event this information is protected by the Federal Confidentiality of Alcohol and Drug Abuse Patient Records regulations: The Federal rules restrict any use of the information to criminally investigate or prosecute any alcohol or drug abuse patient.[facility] HospitalIn the event this information is protected by the Federal Confidentiality of Alcohol and Drug Abuse Patient Records regulations: The Federal rules restrict any use of the information to criminally investigate or prosecute any alcohol or drug abuse patient.[facility] HospitalIn the event this information is protected by the Federal Confidentiality of Alcohol and Drug Abuse Patient Records regulations: The Federal rules restrict any use of the information to criminally investigate or prosecute any alcohol or drug abuse patient.[facility] HospitalIn the event this information is protected by the Federal Confidentiality of Alcohol and Drug Abuse Patient Records regulations: The Federal rules restrict any use of the information to criminally investigate or prosecute any alcohol or drug abuse patient.[facility] HospitalIn the event this information is protected by the Federal Confidentiality of Alcohol and Drug Abuse Patient Records regulations: The Federal rules restrict any use of the information to criminally investigate or prosecute any alcohol or drug abuse patient.[facility] HospitalIn the event this information is protected by the Federal Confidentiality of Alcohol and Drug Abuse Patient Records regulations: The Federal rules restrict any use of the information to criminally investigate or prosecute any alcohol or drug abuse patient.[facility] HospitalIn the event this information is protected by the Federal Confidentiality of Alcohol and Drug Abuse Patient Records regulations: The Federal rules restrict any use of the information to criminally investigate or prosecute any alcohol or drug abuse patient.[facility] HospitalIn the event this information is protected by the Federal Confidentiality of Alcohol and Drug Abuse Patient Records regulations: The Federal rules restrict any use of the information to criminally investigate or prosecute any alcohol or drug abuse patient.[facility] HospitalIn the event this information is protected by the Federal Confidentiality of Alcohol and Drug Abuse Patient Records regulations: The Federal rules restrict any use of the information to criminally investigate or prosecute any alcohol or drug abuse patient.[facility] HospitalIn the event this information is protected by the Federal Confidentiality of Alcohol and Drug Abuse Patient Records regulations: The Federal rules restrict any use of the information to criminally investigate or prosecute any alcohol or drug abuse patient.[facility] HospitalIn the event this information is protected by the Federal Confidentiality of Alcohol and Drug Abuse Patient Records regulations: The Federal rules restrict any use of the information to criminally investigate or prosecute any alcohol or drug abuse patient.[facility] HospitalIn the event this information is protected by the Federal Confidentiality of Alcohol and Drug Abuse Patient Records regulations: The Federal rules restrict any use of the information to criminally investigate or prosecute any alcohol or drug abuse patient.[facility] HospitalIn the event this information is protected by the Federal Confidentiality of Alcohol and Drug Abuse Patient Records regulations: The Federal rules restrict any use of the information to criminally investigate or prosecute any alcohol or drug abuse patient.[facility] HospitalIn the event this information is protected by the Federal Confidentiality of Alcohol and Drug Abuse Patient Records regulations: The Federal rules restrict any use of the information to criminally investigate or prosecute any alcohol or drug abuse patient.[facility] HospitalIn the event this information is protected by the Federal Confidentiality of Alcohol and Drug Abuse Patient Records regulations: The Federal rules restrict any use of the information to criminally investigate or prosecute any alcohol or drug abuse patient.[facility] HospitalIn the event this information is protected by the Federal Confidentiality of Alcohol and Drug Abuse Patient Records regulations: The Federal rules restrict any use of the information to criminally investigate or prosecute any alcohol or drug abuse patient.[facility] HospitalIn the event this information is protected by the Federal Confidentiality of Alcohol and Drug Abuse Patient Records regulations: The Federal rules restrict any use of the information to criminally investigate or prosecute any alcohol or drug abuse patient.[facility] HospitalIn the event this information is protected by the Federal Confidentiality of Alcohol and Drug Abuse Patient Records regulations: The Federal rules restrict any use of the information to criminally investigate or prosecute any alcohol or drug abuse patient.[facility] HospitalIn the event this information is protected by the Federal Confidentiality of Alcohol and Drug Abuse Patient Records regulations: The Federal rules restrict any use of the information to criminally investigate or prosecute any alcohol or drug abuse patient.[facility] HospitalIn the event this information is protected by the Federal Confidentiality of Alcohol and Drug Abuse Patient Records regulations: The Federal rules restrict any use of the information to criminally investigate or prosecute any alcohol or drug abuse patient.[facility] HospitalIn the event this information is protected by the Federal Confidentiality of Alcohol and Drug Abuse Patient Records regulations: The Federal rules restrict any use of the information to criminally investigate or prosecute any alcohol or drug abuse patient.[facility] HospitalIn the event this information is protected by the Federal Confidentiality of Alcohol and Drug Abuse Patient Records regulations: The Federal rules restrict any use of the information to criminally investigate or prosecute any alcohol or drug abuse patient.[facility] HospitalIn the event this information is protected by the Federal Confidentiality of Alcohol and Drug Abuse Patient Records regulations: The Federal rules restrict any use of the information to criminally investigate or prosecute any alcohol or drug abuse patient.[facility] HospitalIn the event this information is protected by the Federal Confidentiality of Alcohol and Drug Abuse Patient Records regulations: The Federal rules restrict any use of the information to criminally investigate or prosecute any alcohol or drug abuse patient.[facility] HospitalIn the event this information is protected by the Federal Confidentiality of Alcohol and Drug Abuse Patient Records regulations: The Federal rules restrict any use of the information to criminally investigate or prosecute any alcohol or drug abuse patient.[facility] HospitalIn the event this information is protected by the Federal Confidentiality of Alcohol and Drug Abuse Patient Records regulations: The Federal rules restrict any use of the information to criminally investigate or prosecute any alcohol or drug abuse patient.[facility] HospitalIn the event this information is protected by the Federal Confidentiality of Alcohol and Drug Abuse Patient Records regulations: The Federal rules restrict any use of the information to criminally investigate or prosecute any alcohol or drug abuse patient.[facility] HospitalIn the event this information is protected by the Federal Confidentiality of Alcohol and Drug Abuse Patient Records regulations: The Federal rules restrict any use of the information to criminally investigate or prosecute any alcohol or drug abuse patient.[facility] HospitalIn the event this information is protected by the Federal Confidentiality of Alcohol and Drug Abuse Patient Records regulations: The Federal rules restrict any use of the information to criminally investigate or prosecute any alcohol or drug abuse patient.[facility] HospitalIn the event this information is protected by the Federal Confidentiality of Alcohol and Drug Abuse Patient Records regulations: The Federal rules restrict any use of the information to criminally investigate or prosecute any alcohol or drug abuse patient.[facility] HospitalIn the event this information is protected by the Federal Confidentiality of Alcohol and Drug Abuse Patient Records regulations: The Federal rules restrict any use of the information to criminally investigate or prosecute any alcohol or drug abuse patient.[facility] Reason for Visit (unrecogniz ed section and content) Reason Comments Botox Injection Chronic Migraine Specialty Diagnoses / Procedures Referred By Contac t Referred To Contact HEADACHE Diagnoses Chronic migraine without aura, intractable, without status migrainosus Botox 200 units every 12 weeks for 1 year through [facility] buy and bill Preempt protocol [id number] Procedure -[id number] chemodervate facial/trigem/cerv musc migraine Procedures BOTULINUM TOXIN A PER 1 UNIT CHEMODERVATE FACIAL/TRIGEM/CERV MUSC MIGRAINE Oren Mills, DO [address] [place] [address] Neur Headache Main [address] [id number] Referral ID Status Reason Start Date Expiration Date Visits Re quested Visits Authorized [id number] Closed 10/08/2023 04/04/2024 2 2 Reason Comments PT Progress Note Specialty Diagnoses / Procedures Referred By Kamari rios Referred To Contact [facility] Diagnoses Chronic neck pain Chronic bilateral thoracic back pain Procedures CONSULT TO PHYSICAL THERAPY PHYSICAL THERAPY EVALUATION HIGH COMPLEX 45 MINS Joanie Gonzalez APRN.SENIOR PLANNING MANAGER [address] [id number] [facility] [place] [address] [place] [address] Referral ID Status Reason Start Date Expiration Date Visits Requested Visits Authorized [id number] Authorized Auto-Generat ed Referral 05/18/2023 05/17/2024 99 99 Reason Comments Contact lens evaluation Yearly Exam Reason Comments Refraction check Reason Comments CARD New Patient Consult Reason Comments Appointment Reason Comments New Patient Reason Comments Refill Request Reason Comments Stomach issues Feeling full will ea ting, bloating Reason Comments Results Reason Comments Patient Question Reason Comments CARD Follow Up 3 Month Denies chest pain /SOB Reason Comments Preparations For Procedures Reason Comments Received Outside Medical Records Externa l referral to [facility] [place] Reason Comments Headaches Dysautonomia, parest hesias Reason Comments New Patient Neck pain Reason Comments Follow Up GERD. 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 - Other Reason Comments Visual Field OCT Eval for IIH Specialty Diagnoses / Procedures Referred By Kamari rios Referred To Contact Ophthalmology Diagnoses Chronic nonintractable headache, unspecified headache type IIH (idiopathic intracranial hypertension) Procedures CONSULT TO OPHTHALMOLOGY OFFICE/OUTPATIENT NEW HIGH MDM 60 MINUTES Katarina Karimi, DO [address] [place] [address] Referral ID Status Reason Start Date Expiration Date V isits Requested Visits Authorized [id number] Closed PCP Requested Referral 07/06/2023 07/05/2024 1 1 Reason Comments PT Eval Reason Comments Medical Weight Management Obesity Specialty Diagnoses / Procedures Referred By Kamari t Referred To Contact Diagnoses Class 3 severe obesity due to excess calories with serious comorbidity and body mass index (BMI) of 45.0 to 49.9 in adult (HCC) Procedures ENDOCRINE MEDICAL WEIGHT MANAGEMENT OFFICE/OUTPATIENT [facility] 60-74 MINUTES Aram Rogers, DO [address] [place] [address] Referral ID Status Reason Start Date Expiration Date V isits Requested Visits Authorized [id number] Closed PCP Requested Referral 04/06/2023 04/05/2024 1 1 Reason Comments Medial release authorization Reason Comments Insurance Authorization PA delayed-Addit ional information needed Reason Comments New Patient Evaluation Chronic Migraine Daily Headache Per patient has been following another MD of [facility], and was recommended to see [facility] Headache clinic. Referral ID Status Reason Start Date Expiration Date V isits Requested Visits Authorized [id number] Authorized 10/08/2023 04/04/2024 2 2 Reason Comments Urinary Tract Infection Pressure, low ba ck pain, frequency/urgency2-3 days Reason Comments Joint Pain Specialty Diagnoses / Procedures Referred By Kamari t Referred To Contact Rheumatology Diagnoses Autoimmune disease ([facility]) Arthralgia, unspecified joint Procedures CONSULT TO RHEUM/IMMUN DISEASE OFFICE/OUTPATIENT [facility] 60 MINUTES Heladio Crain Jr., DO [address] [place] [address] Referral ID Status Reason Start Date Expiration Date V isits Requested Visits Authorized [id number] Closed PCP Requested Referral 11/16/2023 11/15/2024 [address] [facility] Specialty Diagnoses / Procedures Referred By Kamari t Referred To Contact CT IMAGING Diagnoses Generalized abdominal pain Procedures CT ABD/PEL W IVCON CT ABD & PELVIS W/CONTRAST Heladio Crain Jr., DO [address] [place] [address] [place] [address] Referral ID Status Reason Start Date Expiration Date V isits Requested Visits Authorized [id number] Closed Auto-Generate d Referral 11/13/2023 12/12/2024 1 [address] Specialty Diagnoses / Procedures Referred By Contac t Referred To Contact CT IMAGING Diagnoses Generalized abdominal pain Procedures CT ABD/PEL W IVCON CT ABD & PELVIS W/CONTRAST Heladio Crain Jr., DO [address] [facility] [place] [address] [place] [address] Reason Comments Pelvic Pain Pt presents today fo r pelvic pain Reason Comments Abnormal Lab Reason Comments Results Reason Comments Appointment Schedule appo Reason Comments IIH follow up Reason Comments Referral Request Reason Comments New Reason Comments Well Woman Reason Comments Pre-Op Exam Reason Comments Joint Pain Specialty Diagnoses / Procedures Referred By Contac t Referred To Contact MR IMAGING Diagnoses IIH (idiopathic intracranial hypertension) Pulsatile tinnitus, right ear Procedures MRV BRAIN WO IVCON MRA, HEAD W/O CONTRAST Oren Mills, DO [address] [place] [address] [place] [address] Referral ID Status Reason Start Date Expiration Date V isits Requested Visits Authorized [id number] Closed Auto-Generate d Referral 08/13/2023 09/11/2024 1 1 Specialty Diagnoses / Procedures Referred By Contac t Referred To Contact Diagnoses Primary osteoarthritis of right knee Acute medial meniscus tear of right knee Primary osteoarthritis of right knee [M17.11] Acute medial meniscus tear of right knee [S83.241A] Procedures [facility] ARTHRS KNE SURG W/MENISCECTOMY MED/LAT W/SHVG Right arthroscopic partial medial meniscectomy; Case Comments/Implants: Knee arthroscopy equipment; Anesthesia Requested: Choice with adductor canal block Woody Garcia MD [address] [place] [address] [facility] [address] [place] [address] Referral ID Status Reason Start Date Expiration Date Visits Re quested Visits Authorized [id number] 1 1 Reason Comments Future Appointment New Patient [place] Any Reason Comments Abdominal Pain Flank Pain Reason Comments Headache Daily Headache Occipital Pain Migraine Chronic Migraine Reason Comments New Patient Reason Onset Date Comments Refill Request 08/17/2024 Reason Comments IUD Removal Specialty Diagnoses / Procedures Referred By Kamari rios Referred To Contact [facility] Diagnoses Encounter for IUD removal Procedures REMOVE INTRAUTERINE DEVICE REM[place] [address] [place] [address] Phone: tel: fax: [address] [address] Referral ID Status Reason Start Date Expiration Date V isits Requested Visits Authorized [id number] Closed Auto-Generate d Referral 09/30/2024 09/30/2025 1 1 Reason Comments CC IUD Removal, strings lost Specialty Diagnoses / Procedures Referred By Kamari rios Referred To Contact [facility] Diagnoses Intrauterine contraceptive device threads lost, subsequent encounter Encounter for IUD removal Attempted IUD removal, unsuccessful Procedures REMOVE INTRAUTERINE DEVICE REMOVE INTRAUTERINE DEVICE Patti Rutherford PA-C [address] [place] [address] Phone: tel: fax: [address] [phone] Referral ID Status Reason Start Date Expiration Date V isits Requested Visits Authorized [id number] Closed Auto-Generate d Referral 11/23/2024 11/23/2025 1 1 Reason Comments Chronic Migraine Goals (unrecognized section and content) Goals may be documented in a n alternate section Active Administered Medications - up to 3 most recent administrations Administered Medications (un recognized section and content) Medication Order MAR Action Action Date Dose Rate Site fluorescein-benoxinate 0.3-0.4 % 1 Drop (FLURESS) 1 Drop, BOTH EYES, DIRECTED, Starting on Thu07/17/23 at 1300, Until 07/18/23 at 0059, Administer for applanation tonometry. In the event of a Fluress shortage, administer Robyn-Fluor 1 drop into both eyes as directed for applanation tonometry, [facility] MED ORDERS Given 07/17/2023 1:00 PM EST 1 Drop tropicamide 1 % 1 Drop (MYDRIACYL) 1 Drop, BOTH EYES, DIRECTED, Starting on Thu07/17/23 at 1300, Until 3/2/24 at 0059, Administer for dilation, [facility] MED ORDERS Given 07/17/2023 1:00 PM EST 1 Drop Ordered Prescriptions (unrec ognized section and content) Prescription Sig Dispensed Refills Start Date End Da te oxyCODONE (ROXICODONE) 5 MG immediate release tabletIndications:Acute medial meniscus tear of right knee, subsequent encounter Take 1 tablet by mouth every 6 hours as needed for Pain for up to 5 days. Intended supply: 5 days. Take lowest dose possible to manage pain Max Daily Amount: 20 mg 20 tablet 03/08/2024 03/13/2024 Prescription Sig Dispensed Refills Start Date End Da te nitrofurantoin, macrocrystal-monohydrate , (MACROBID) 100 MG capsule Take 1 capsule by mouth 2 times daily for 7 days 14 capsule 04/27/2024 05/04/2024 Scheduled Active and Recently Administ ered Medications (unrecognized section and content) Medication Order 03/06/2024 03/07/2024 03/08/2024 ceFAZolin Sodium (ANCEF) 3,000 mg in sodium chloride 0.9 % 100 mL (COMPLETED) 3,000 mg, IntraVENous, INHALATION THERAPY AIDE TO O.R., 1 dose, On Thu03/08/24 at 0630, Antimicrobial Indications: Surgical Prophylaxis, Administer within 1 hour prior to incision. Recommend to repeat in 3-4 hours after initial dose if still intra-op., Pre-op (day of surgery) 0749 ([facility] ider: Jewel Fenton RN) sodium chloride flush 0.9 % injection 5-40 mL 5-40 mL, IntraVENous, EVERY 12 HOURS SCHEDULED (2 times per day), First dose on Thu03/08/24 at 0900, Until Discontinued, For Line Patency: Peripheral IV = 5 mL; Midline or Central Line = 10 mL/lumen. If following IV push medication, administer flush at same rate as the IV push. Flush volume is determined by type of infusion therapy being given. For non-viscous solutions use: Peripheral IV = 5 mL Midline or Central Line = 10 mL/lumen For viscous solutions (i.e. blood components, parenteral nutrition, contrast media, or after obtaining blood sample) use: Peripheral IV = 10 mL Midline or Central Line = 20 mL/lumen, PACU only 0900 (Due)2100 (Due) Continuous Medication Order 03/06/2024 03/07/2024 03/08/2024 lactated ringers IV soln infusion (CANCELED) IntraVENous, at 125 mL/hr, CONTINUOUS, Starting on Thu03/08/24 at 0630, Pre-op (day of surgery) 0632 (New Bag - Prov ider: Janine Ruth RN)0734 (NoRateChange - Provider: Jewel Fenton RN) PRN Medication Order 03/06/2024 03/07/2024 03/08/2024 0.9 % sodium chloride infusion IntraVENous, at 100 mL/hr, PRN, If patient receiving piggyback infusions without ordered maintenance IV fluids or with frequent/long duration piggyback infusions, Starting on Thu03/08/24 at 0844, Administer at the same rate as the piggyback being infused., PACU only dextrose 10 % infusion IntraVENous, at 100 mL/hr, CONTINUOUS PRN, if blood glucose remains LESS THAN 70 mg/dL after 2 dextrose 10% intravenous boluses or administration of glucagon, Starting on Thu03/08/24 at 0844, If blood glucose fails to stabilize after 2 dextrose 10% intravenous boluses or glucagon administration, start dextrose 10% infusion at 100 mL/hour and repeat blood glucose at 30 and 60 minutes. If blood glucose is GREATER THAN 70 mg/dL after 60 minutes, discontinue dextrose 10% infusion., PACU only dextrose bolus 10% 125 mL(Linked Group 1) 125 mL, IntraVENous, at 937.5 mL/hr, Administer over 8 Minutes, PRN, Other, Blood glucose 40 - 69 mg/dL and patient NOT ALERT or NPO, Starting on Thu03/08/24 at 0844, Repeat blood glucose in 15 minutes. If blood glucose remains LESS THAN 70 mg/dL, repeat treatment and recheck blood glucose in 15 minutes x 2. If using glycemic management system, dose as instructed per system. If blood glucose remains LESS THAN 70 mg/dL after 2 intravenous boluses start dextrose 10% at 100 mL/hour and notify provider., PACU only dextrose bolus 10% 250 mL(Linked Group 1) 250 mL, IntraVENous, at 937.5 mL/hr, Administer over 16 Minutes, PRN, Other, Blood glucose LESS THAN 40 mg/dL and patient NOT ALERT or NPO, Starting on Thu03/08/24 at 0844, Repeat blood glucose in 15 minutes. If blood glucose remains LESS THAN 70 mg/dL, repeat treatment and recheck blood glucose in 15 minutes x 2. If using glycemic management system, dose as instructed per system. If blood glucose remains LESS THAN 70 mg/dL after 2 intravenous boluses start dextrose 10% at 100 mL/hour and notify provider., PACU only fentaNYL (SUBLIMAZE) injection 25 mcg 25 mcg, IntraVENous, EVERY 5 MIN PRN, 4 doses, Starting on Thu03/08/24 at 0844, Until Discontinued, Pain Moderate (4-6), For Phase I. If Phase II oral narcotics have been administered in the last 60 minutes, do not administer IV narcotics unless specifically approved by provider., PACU only glucagon injection 1 mg 1 mg, SubCUTAneous, PRN, Starting on Thu03/08/24 at 0844, Until Discontinued, Low blood sugar, Blood glucose LESS THAN 70 mg/dL and patient NOT ALERT or NPO and does not have IV access., After administration, attempt intravenous access and start dextrose 10% at 100 mL/hr. Repeat blood glucose in 15 minutes x 2 and notify provider., PACU only glucose chewable tablet 16 g 16 g (4 tablet), Oral, PRN, Starting on Thu03/08/24 at 0844, Until Discontinued, Low blood sugar, If blood glucose is LESS THAN 70 mg/dL and patient is alert and tolerating oral. Give 4 tablets (16g) Repeat blood glucose in 15 minutes. If blood glucose is LESS THAN 70 mg/dL, repeat treatment and recheck blood glucose in 15 minutes x 2. If blood glucose remains LESS THAN 70 mg/dL, notify provider., PACU only hydrALAZINE (APRESOLINE) injection 10 mg(Linked Group 2) 10 mg, IntraVENous, EVERY 15 MIN PRN, 2 doses, Starting on Thu03/08/24 at 0844, Until Discontinued, High Blood Pressure, for SBP greater than 180 mmHg for 2 consecutive measurements taken from different sites, If heart rate is greater than 60 bpm, hold hydralazine and use labetalol if ordered, otherwise contact provider. Inform provider if SBP is still greater than 180 mmHg 10 minutes after second antihypertensive dose is administered., PACU only HYDROmorphone (DILAUDID) injection 0.5 mg 0.5 mg, IntraVENous, EVERY 5 MIN PRN, 2 doses, Starting on Thu03/08/24 at 0844, Until Discontinued, Pain Severe (7-10), For Phase I. If Phase II oral narcotics have been administered in the last 60 minutes, do not administer IV narcotics unless specifically approved by provider., PACU only ipratropium 0.5 mg-albuterol 2.5 mg (DUONEB) nebulizer solution 1 Dose 1 Dose, Inhalation, ONCE PRN, 1 dose, Starting on Thu03/08/24 at 0844, Until Thu03/09/24 at 0844, Shortness of Breath, Initiate RT Bronchodilator Protocol: No, PACU only labetalol (NORMODYNE;TRANDATE) injection 10 mg(Linked Group 2) 10 mg, IntraVENous, EVERY 15 MIN PRN, 2 doses, Starting on Thu03/08/24 at 0844, Until Discontinued, High Blood Pressure, for SBP greater than 180 mmHg for 2 consecutive measurements taken from different sites., If heart rate is 60 bpm or less hold labetalol and use hydralazine if ordered, otherwise contact provider. Inform provider if SBP is still greater than 180 mmHg, 10 minutes after second antihypertensive dose is administered., PACU only lidocaine PF 2 % injection (CANCELED) PRN, Starting on Thu03/08/24 at 0813, Until Thu03/08/24 at 0839, Intra-op 0813 (Canceled Entry - Provider: Woody Garcia MD)0826 (Given - Provider: Woody Garcia MD) meperidine (DEMEROL) injection 12.5 mg 12.5 mg, IntraVENous, EVERY 5 MIN PRN, 4 doses, Starting on Thu03/08/24 at 0844, Until Discontinued, Shivering, , May give every 5 minutes to max of 50mg., PACU only metoclopramide (REGLAN) injection 10 mg 10 mg, IntraVENous, ONCE PRN, 1 dose, Starting on Thu03/08/24 at 0844, Until Thu03/09/24 at 0844, Nausea, Secondary antiemetic therapy., PACU only naloxone 0.4 mg in 10 mL sodium chloride syringe IntraVENous, PRN, Opioid Reversal, Starting on Thu03/08/24 at 0844, PRN if respiratory rate is less than 6/min and patient is difficult to arouse then notify physician STAT. Mix 9 mL of sodium chloride 0.9% with 0.4 mg (1 mL) of naloxone (NARCAN) in 10 mL syringe. (Note: dilution is 0.04 mg/mL) Give 0.08 mg (2 mL of special dilution), slow IV push, repeat up to 0.4 mg (10 mL) or until patient is responsive to physical stimulation and respiratory rate is equal to or greater than 6 breaths/min. Continue to observe, if no response within 3 minutes of administration of 0.4 mg (10 mL) total, repeat dose (0.4 mg as administered previously). Concentration 0.04 mg/mL, PACU only ondansetron (ZOFRAN) injection 4 mg 4 mg, IntraVENous, ONCE PRN, 1 dose, Starting on Thu03/08/24 at 0844, Until Thu03/09/24 at 0844, Nausea, Initial antiemetic therapy., PACU only oxyCODONE (ROXICODONE) immediate release tablet 5 mg (COMPLETED)(Linked Group 3) 5 mg, Oral, PRN, 1 dose, Starting on Thu03/08/24 at 0844, Until Thu03/08/24 at 0936, Pain Moderate (4-6), PHASE II, PACU only 0936 (Given - Provid er: Alexia Stewart RN) sod chloride IRR soln 0.9 % irrigation (CANCELED) CONTINUOUS PRN, Starting on Thu03/08/24 at 0813, Intra-op 0813 (New Bag - Prov ider: Woody Garcia MD) sodium chloride flush 0.9 % injection 5-40 mL 5-40 mL, IntraVENous, PRN, Starting on Thu03/08/24 at 0844, Until Discontinued, Line Care, After every IV line use, For Line Patency: Peripheral IV = 5 mL; Midline or Central Line = 10 mL/lumen. If following IV push medication, administer flush at same rate as the IV push. Flush volume is determined by type of infusion therapy being given. For non-viscous solutions use: Peripheral IV = 5 mL Midline or Central Line = 10 mL/lumen For viscous solutions (i.e. blood components, parenteral nutrition, contrast media, or after obtaining blood sample) use: Peripheral IV = 10 mL Midline or Central Line = 20 mL/lumen, PACU only Linked Groups Order Group 1: dextrose bolus 10% 125 mLJump to med 125 mL, IntraVENous, at 937.5 mL/hr, Administer over 8 Minutes, PRN, Other, Blood glucose 40 - 69 mg/dL and patient NOT ALERT or NPO, Starting on Thu03/08/24 at 0844, Repeat blood glucose in 15 minutes. If blood glucose remains LESS THAN 70 mg/dL, repeat treatment and recheck blood glucose in 15 minutes x 2. If using glycemic management system, dose as instructed per system. If blood glucose remains LESS THAN 70 mg/dL after 2 intravenous boluses start dextrose 10% at 100 mL/hour and notify provider., PACU only Or dextrose bolus 10% 250 mLJump to med 250 mL, IntraVENous, at 937.5 mL/hr, Administer over 16 Minutes, PRN, Other, Blood glucose LESS THAN 40 mg/dL and patient NOT ALERT or NPO, Starting on Thu03/08/24 at 0844, Repeat blood glucose in 15 minutes. If blood glucose remains LESS THAN 70 mg/dL, repeat treatment and recheck blood glucose in 15 minutes x 2. If using glycemic management system, dose as instructed per system. If blood glucose remains LESS THAN 70 mg/dL after 2 intravenous boluses start dextrose 10% at 100 mL/hour and notify provider., PACU only Group 2: labetalol (NORMODYNE;TRANDATE) injection 10 mgJump to med 10 mg, IntraVENous, EVERY 15 MIN PRN, 2 doses, Starting on Thu03/08/24 at 0844, Until Discontinued, High Blood Pressure, for SBP greater than 180 mmHg for 2 consecutive measurements taken from different sites., If heart rate is 60 bpm or less hold labetalol and use hydralazine if ordered, otherwise contact provider. Inform provider if SBP is still greater than 180 mmHg, 10 minutes after second antihypertensive dose is administered., PACU only Or hydrALAZINE (APRESOLINE) injection 10 mgJump to med 10 mg, IntraVENous, EVERY 15 MIN PRN, 2 doses, Starting on Thu03/08/24 at 0844, Until Discontinued, High Blood Pressure, for SBP greater than 180 mmHg for 2 consecutive measurements taken from different sites, If heart rate is greater than 60 bpm, hold hydralazine and use labetalol if ordered, otherwise contact provider. Inform provider if SBP is still greater than 180 mmHg 10 minutes after second antihypertensive dose is administered., PACU only Group 3: oxyCODONE (ROXICODONE) immediate release tablet 5 mg (COMPLETED)Jump to med 5 mg, Oral, PRN, 1 dose, Starting on Thu03/08/24 at 0844, Until Thu03/08/24 at 0936, Pain Moderate (4-6), PHASE II, PACU only Or oxyCODONE (ROXICODONE) immediate release tablet 10 mg (COMPLETED) 10 mg, Oral, PRN, 1 dose, Starting on Thu03/08/24 at 0844, Until Thu03/08/24 at 0936, Pain Severe (7-10), PHASE II, PACU only Scheduled Medication Order 04/25/2024 04/26/2024 04/27/2024 nitrofurantoin (macrocrystal-monohydrate) (MACROBID) capsule 100 mg (COMPLETED) 100 mg, Oral, ONCE, 1 dose, On Thu04/27/24 at 1121, Antimicrobial Indications: Urinary Tract Infection 1125 (Given - Provid er: Oren Pfeiffer RN) FOR RECORDS PERTAINING TO PATIENTS WHO ARE OR HAVE BEEN ENROLLED IN A CHEMICAL DEPENDENCY/SUBSTANCEABUSE PROGRAM, SOME INFORMATION MAY BE OMITTED. This clinical summary was aggregated from multiple sources. Caution should be exercised in using it in the provision of clinical care. This summary normalizes information from multiple sources, and as a consequence, information in this document may materially change the coding, format and clinical context of patient data. In addition, data may be omitted in some cases. CLINICAL DECISIONS SHOULD BE BASED ON THE PRIMARY CLINICAL RECORDS. [employer] [facility]. provides no warranty or guarantee of the accuracy or completeness of information in this document.
[2025-01-14 13:07] LABS: Alanine Aminotransferase 26 U/L (14-59); Albumin Globulin Ratio 1.0; Albumin Level 3.6 g/dL (3.4-5.0); Alkaline Phosphatase 97 U/L (46-116); Anion Gap 13.4; Aspartate Amino Transferase 28 U/L (15-37); Blood Urea Nitrogen 14.0 mg/dL (7.0-18.0); Calcium 8.8 mg/dL (8.5-10.1); Carbon Dioxide 21.3 mmol/L (21.0-32.0); Chloride 108 mmol/L (98-107); Estimated GFR (African America >60 (>=60 mL/min/1.73m^2); Estimated GFR (Non-African Ame >60 (>=60 mL/min/1.73m^2); Globulin 3.5 g/dL; Glucose 97 mg/dL (74-106); Potassium 3.7 mmol/L (3.5-5.1); Sodium 139 mmol/L (136-145); Total Protein 7.1 g/dL (6.4-8.2)
== END 2025-01-14 13:30 | disposition home or self-care (01) ==
PROVIDERS: Emergency Provider Emergency Medicine; PCP Family Medicine
DX: G89.18 Other acute postprocedural pain (principal); Z98.890 Other specified postprocedural states
CPT/HCPCS: 36415; 71045; 80053; 85025; 99284; Q0162